=== PATIENT | male | born 1950 | race Caucasian/White ===

== ENCOUNTER → 2017-01-16 | Outpatient (CLI) | payer OTHER ==
[~2017-01-16] MED LIST: ASPI-435 PO; ATOR-24 PO; CHOL100027 PO; CHOL2000 PO; CYAN100020 PO; FURO-85 PO; LPT40 PO; LSN5 PO; LSX20 PO; PRVHFAIN INH; RIVA1TAB4 PO; SACU1TAB PO; SACU1TAB7 PO; SENN-61 PO; SENN8.6C PO; TPRSR50 PO
[2017-01-16 16:58] LABS: BASO % 0.4 %; BASO ABS # 0.03 K/uL (0-0.2); COMPLETE YES; EOS % 4.1 %; HEMATOCRIT 39.9 % (42-52); IG% 0.3 %; LYMPH % 23.4 %; LYMPH ABS # 1.72 K/uL (1.2-3.4); MEAN CELL VOLUME 97.3 fL (80-100); MEAN CORPUSCULAR HGB CONC 32.8 g/dl (32-36); MEAN PLATELET VOLUME 11.6 fL (7.4-10.4); MONO % 11.7 %; NEUT % 60.1 %; PLATELET COUNT 198 K/uL (130-400); WHITE BLOOD COUNT 7.35 K/uL (4.8-10.8)
[2017-01-16 17:03] LABS: URINE APPEARANCE CLEAR (CLEAR); URINE BILIRUBIN NEG (NEG); URINE COLOR YELLOW; URINE NITRITE NEG (NEG); URINE SPECIFIC GRAVITY 1.015 (1.000-1.030); UROBILINOGEN NEG (NEG)
[2017-01-16 17:05] LABS: MANUAL MICROSCOPIC REQUIRED? NO; REVIEW REQ? NO
[2017-01-16 17:09] LABS: ALT/SGPT 37 U/L (12-78); AST/SGOT 23 U/L (15-37); BLOOD UREA NITROGEN 26 mg/dl (7-18); BUN/CREATININE RATIO 17.4 (10-20); CALCIUM 9.1 mg/dl (8.5-10.1); CARBON DIOXIDE 28 mmol/L (21-32); CHLORIDE 106 mmol/L (98-107); GLUCOSE 83 mg/dl (70-99); POTASSIUM 5.1 mmol/L (3.5-5.1); SODIUM 140 mmol/L (136-145)
[2017-01-16 17:20] LABS: ALB/GLOB RATIO 0.9 (0.9-2); ALKALINE PHOSPHATASE 104 U/L (45-117); PHOSPHORUS 3.8 mg/dl (2.5-4.9)
[2017-01-16 17:26] LABS: URINE TOTAL PROTEIN < 5.0 mg/dl (0-11.9)
== END | disposition home or self-care (01) ==
LOC: C.LABBC 12:39
PROVIDERS: ATTEND Family Medicine
DX: N18.3 Chronic kidney disease, stage 3 (moderate) (principal); I42.0 Dilated cardiomyopathy; D64.9 Anemia, unspecified

== ENCOUNTER → 2017-01-18 | Outpatient (CLI) | payer OTHER ==
[2017-01-18 15:42] LABS: FERRITIN 531.8 ng/ml (8.0-388.0)
[2017-01-20 15:04] LABS: ALBUMIN 4.1 G/DL (3.8-4.8); GAMMA GLOBULIN 1.4 G/DL (0.8-1.7); TOTAL PROTEIN 7.3 G/DL (6.2-8.3)
[2017-01-23 07:45] LABS: CREATININE UR 99 MG/DL (20-370)
--- NOTE | 2017-01-25 09:56 | CODING QUERY MEDICAL NECESSITY ---
SUPPORTING DIAGNOSIS NEEDED A supporting diagnosis is required for the test/procedure performed on this patient in order for us to be reimbursed by the patient's insurance. Please provide a supporting diagnosis for the following test/procedure listed below next to the test name along with your signature. *If there is no additional diagnosis for this patient that would support the following test/procedure please document that below next to the test/procedure. Test(s)/Procedure(s) that require a supporting diagnosis: DOS 01/18 * Vitamin B12 DIAGNOSIS: Provider Signature: Date: Thank you Med[facility] Information Management Once completed, please kindly fax back to [phone] For questions please call [phone]
== END | disposition home or self-care (01) ==
LOC: C.LABBC 09:38
PROVIDERS: ATTEND Family Medicine
DX: N18.3 Chronic kidney disease, stage 3 (moderate) (principal); R31.29 Other microscopic hematuria; Z11.59 Encounter for screening for other viral diseases; D64.9 Anemia, unspecified

== ENCOUNTER → 2017-02-06 | Outpatient (CLI) | payer OTHER ==
--- NOTE | 2017-02-06 09:40 | DIAGNOSTIC IMAGING REPORT ---
CT OF THE CHEST WITHOUT IV CONTRAST CLINICAL HISTORY: Left lower lobe pulmonary nodule. COMPARISON STUDY: Chest CT October 11, 2016 and chest radiograph November 09, 2016. CT DOSE: 493.65 mGy.cm TECHNIQUE: Axial images of the chest were obtained without IV contrast. Images were reviewed in the axial, sagittal, and coronal planes. IV contrast was not administered for this examination. FINDINGS: A prominent right paratracheal lymph node is at the upper limits of normal for size, measuring 1 cm in short axis diameter. This is similar to prior exam. There are calcified right hilar lymph nodes. There is a dual lead left subclavian pacemaker. The heart is moderately enlarged. There is no pericardial effusion. Central airways are patent. The left lower lobe subpleural opacity shown exam of October 11, 2016 has nearly completely resolved. No new nodules are identified. Subpleural reticulation and groundglass opacity with mild bronchiectasis, greater within the right lung, is noted. This is consistent with interstitial lung disease. Asymmetric right lower lung opacity favors asymmetric interstitial lung disease. There is no consolidation to suggest pneumonia. The central airways are patent. There is no pneumothorax or pleural effusion. A cyst within the upper pole the right kidney is incidentally noted. IMPRESSION: 1. Near complete resolution of the left lower lobe subpleural nodular density since exam October 11, 2016 suggestive of a resolving infarct. 2. No significant change in asymmetric right lung groundglass opacity which favors asymmetric interstitial lung disease. 3. No suspicious pulmonary nodules. Electronically signed by: Ramiro Ponce M.D. 02/06/2017 9:38 AM Dictated Date/Time: 02/06/2017 9:28 AM
== END | disposition home or self-care (01) ==
LOC: C.CTS 09:00
PROVIDERS: ATTEND Surgery
DX: R91.1 Solitary pulmonary nodule (principal)

== ENCOUNTER → 2017-03-13 | Outpatient (CLI) | payer OTHER ==
[2017-03-13 10:43] LABS: BASO % 0.4 %; BASO ABS # 0.03 K/uL (0-0.2); COMPLETE YES; EOS % 3.9 %; HEMATOCRIT 42.9 % (42-52); IG% 0.1 %; LYMPH % 21.3 %; LYMPH ABS # 1.59 K/uL (1.2-3.4); MEAN CELL VOLUME 98.4 fL (80-100); MEAN CORPUSCULAR HEMOGLOBIN 31.4 pg (25-34); MEAN CORPUSCULAR HGB CONC 31.9 g/dl (32-36); MEAN PLATELET VOLUME 11.3 fL (7.4-10.4); MONO % 6.6 %; NEUT % 67.7 %; PLATELET COUNT 232 K/uL (130-400); RED BLOOD COUNT 4.36 M/uL (4.7-6.1); WHITE BLOOD COUNT 7.48 K/uL (4.8-10.8)
[2017-03-13 10:59] LABS: ALT/SGPT 26 U/L (12-78); AST/SGOT 15 U/L (15-37); BLOOD UREA NITROGEN 26 mg/dl (7-18); BUN/CREATININE RATIO 17.1 (10-20); CALCIUM 8.9 mg/dl (8.5-10.1); CARBON DIOXIDE 29 mmol/L (21-32); CHLORIDE 108 mmol/L (98-107); CHOLESTEROL 136 mg/dl (0-200); GLUCOSE 98 mg/dl (70-99); POTASSIUM 5.1 mmol/L (3.5-5.1); SODIUM 142 mmol/L (136-145)
[2017-03-13 11:02] LABS: ALKALINE PHOSPHATASE 94 U/L (45-117); CHOLESTEROL/HDL RATIO 2.4; HDL CHOLESTEROL 56 mg/dl; LDL CHOLESTEROL CALCULATED 57 mg/dl; TRIGLYCERIDES 115 mg/dl (0-150); VERY LOW DENSITY LIPOPROT CALC 23 mg/dl
== END | disposition home or self-care (01) ==
LOC: C.LABBC 08:43
PROVIDERS: ATTEND Physician Assistant Medical
DX: E78.5 Hyperlipidemia, unspecified (principal); D64.9 Anemia, unspecified

== ENCOUNTER → 2017-03-23 | Day surgery (SDC) | payer OTHER ==
[~2017-03-23] VITALS: Ht 185.4 cm; Wt 100.0 kg
[~2017-03-23] MED LIST changes: +ATROPINE SULFATE 0.1 MG/ML 5ML SYR IV PRN; +EpHEDrine SULFATE INJ 50 MG/ML AMP IV PRN
[2017-03-23 06:57] VITALS: BP 111/78; PULSE 78; TEMP 36.4; O2SAT 99; Ht 185.4 cm; Wt 100.0 kg
[2017-03-23 07:35] VITALS: BP 110/76; PULSE 74; O2SAT 100
[2017-03-23 07:40] VITALS: BP 97/68; PULSE 71; O2SAT 100
[2017-03-23 07:45] VITALS: BP 98/64; PULSE 87; O2SAT 100
--- NOTE | 2017-03-23 07:50 | History & Physical Bridge Note ---
H&P Re-Evaluation Bridge Note: I have examined the patient, reviewed the History & Physical and in the interval since the performance of the History & Physical I have noted the following changes of clinical significance: No changes noted
--- NOTE | 2017-03-23 07:54 | [facility] Post Operative Brief Note ---
Immediate Operative Summary Operative Date March 23, 2017. Pre-Operative Diagnosis Paroxysmal atrial Fibrillation Post-Operative Diagnosis PAF s/p Successful external DCCV Procedure(s) Performed External Direct current cardioversion Surgeon Dr. Dash Trejo Waste Elimination Surgeon(s) Parag Estimated Blood Loss none Findings AF Specimens none Complication(s) None Disposition labor conciliator holding
--- NOTE | 2017-03-23 07:59 | Anesthesiology Progress Note ---
Anesthesia Post Op Note Date & Time March 23, 2017 at 07:59 Vital Signs Pain Intensity: 0 Vital Signs Past 12 Hours Date Time Temp Pulse Resp B/P Pulse Ox O2 Delivery O2 Flow Rate FiO2 03/23/17 07:46 36.4 78 16 97/73 100 Nasal Cannula 2 03/23/17 07:45 87 16 98/64 100 Nasal Cannula 2 03/23/17 07:40 71 22 97/68 100 Nasal Cannula 6 03/23/17 07:35 74 16 110/76 100 Nasal Cannula 6 03/23/17 06:57 36.4 78 16 111/78 99 Room Air Notes Mental Status: alert / awake / arousable, participated in evaluation Pt Amnestic to Procedure: Yes Nausea / Vomiting: adequately controlled Pain: adequately controlled Airway Patency, RR, SpO2: stable & adequate BP & HR: stable & adequate Hydration State: stable & adequate Anesthetic Complications: no major complications apparent
--- NOTE | 2017-03-23 07:59 | Discharge Instructions ---
Discharge Instructions Procedure Procedure Date: March 23, 2017. Reason for Visit: Atrial Fibrillation Dr Trejo To Do. Discharge Discharge Date: March 23, 2017. Discharge Diagnosis: Atrial fibrillation s/p external direct current cardioversion. Last Recorded Wt (Kilograms): 100 Anesthesia Post Anesthesia Instructions: If you have had General Anesthesia or IV Sedation: * Do not drive today. * Resume driving when surgeon permits. * Do not make important decisions or sign legal documents today. * Call surgeon for: 1. Temperature elevations greater than 101 degrees F. 2. Uncontrollable pain. 3. Excessive bleeding. 4. Persistent nausea and vomiting. 5. Medication intolerance (nausea, vomiting or rash). * For nausea and vomiting use only clear liquids such as: tea, soda, bouillon until nausea subsides, then gradually increase diet as tolerated. * If you have any concerns or questions, call your surgeon's office. If physician is unavailable and it is an emergency, call 911 or go to the nearest emergency room. Instructions Activity Recommendations: limitations as noted below Return to School/Work: with the following limitations Recommended Home Diet: resume previous diet Allergies: Coded Allergies: Diphtheria Toxoid (Verified Allergy, Severe, CONVULSIONS, 11/08/16) Tetanus Toxoid (Verified Allergy, Severe, CONVULSIONS, 11/08/16) Pt states this was the old Tetanus with horse serum. Is able to take a new tetanus inj Provider Instructions ACTIVITY RECOMMENDATIONS: Resume activities as tolerated with no limitations unless specified. _x_ No lifting over _10_ pounds for 24 hours. _x_ Do not engage in vigorous exercise, sexual activity, or sports for 24 hours. _x_ Do not drive or operate any motorized equipment for 24 hours. _x_ You may return to work/school tomorrow. Follow Up Follow-up with: Dr. Trejo and Dr. Bedoya [facility] Recommendations: Call your doctor if: * Temperature above 101 degrees * Pain not relieved by pain medicine ordered * There is increased drainage or redness from any incision * You have any unanswered questions or concerns. Your Doctors Instructions noted above were prepared by provider Ja Trejo. Patient Signature Section: Patient Instructions Signature Page Mauro Jaquez Patient (or Guardian) Signature/Date: I have read and understand the instructions given to me by my caregivers. Caregiver/RN/Doctor Signature/Date: The above-named patient and/or guardian has received patient instructions on this date. + Original Patient Signature Page (only) stays with chart. Please make copy for patient.
[2017-03-23 08:35] VITALS: BP 108/75; PULSE 87; O2SAT 98
--- NOTE | 2017-03-23 08:43 | CARDIOVERSION ---
DATE OF OPERATION: 03/23/2017 CARDIOVERSION REPORT DATE OF PROCEDURE: 03/23/2017. INDICATIONS: Paroxysmal atrial fibrillation. PROCEDURE: External direct current cardioversion. PROCEDURAL SUMMARY: The patient was brought to the cardiac catheterization lab in a fasting state. Defibrillator pads were placed in an anterior and posterior position. Atrial fibrillation confirmed by ICD interrogation and telemetry monitoring. Moderate sedation provided by the anesthesia service. The patient received propofol. Please see their note for details. When adequate sedation was achieved the defibrillator was synched to the QRS complex. The defibrillator was then charged to 200 joules. A single 200 joule biphasic shock was delivered. The patient was successfully converted from atrial fibrillation to normal sinus rhythm. ICD interrogation demonstrated normal function post cardioversion. CONCLUSION: Successful external direct current cardioversion from atrial fibrillation to normal sinus rhythm at 200 joules. No complications. No medication changes. I attest to the content of the Intraoperative Record and any orders documented therein. Any exceptio ns are noted below.
== END | disposition home or self-care (01) ==
LOC: C.CATH 06:01
PROVIDERS: ATTEND Internal Medicine Cardiovascular Disease
DX: I48.0 Paroxysmal atrial fibrillation (principal); I50.22 Chronic systolic (congestive) heart failure; I47.2 Ventricular tachycardia; I49.3 Ventricular premature depolarization; Z95.810 Presence of automatic (implantable) cardiac defibrillator; I26.99 Other pulmonary embolism without acute cor pulmonale; N18.3 Chronic kidney disease, stage 3 (moderate); I25.10 Atherosclerotic heart disease of native coronary artery without angina pectoris; Z87.891 Personal history of nicotine dependence; Z82.49 Family history of ischemic heart disease and other diseases of the circulatory system; Z79.82 Long term (current) use of aspirin; Z86.718 Personal history of other venous thrombosis and embolism; Z79.01 Long term (current) use of anticoagulants; Z90.89 Acquired absence of other organs; Z98.41 Cataract extraction status, right eye; Z98.42 Cataract extraction status, left eye; J44.9 Chronic obstructive pulmonary disease, unspecified; E78.5 Hyperlipidemia, unspecified; M19.90 Unspecified osteoarthritis, unspecified site; I10 Essential (primary) hypertension

== ENCOUNTER → 2017-11-30 | Outpatient (CLI) | payer OTHER ==
[~2017-11-30] MED LIST changes: -ATROPINE SULFATE 0.1 MG/ML 5ML SYR IV PRN; -CHOL100027 PO; -EpHEDrine SULFATE INJ 50 MG/ML AMP IV PRN; -LPT40 PO; -LSX20 PO; -PRVHFAIN INH; -SACU1TAB PO; -SENN-61 PO
[2017-11-30 11:26] LABS: ALBUMIN 3.8 gm/dl (3.4-5.0); ALT/SGPT 24 U/L (12-78); BLOOD UREA NITROGEN 23 mg/dl (7-18); CARBON DIOXIDE 28 mmol/L (21-32); CHOLESTEROL 134 mg/dl (0-200); CREATININE 1.39 mg/dl (0.60-1.40); GLUCOSE 103 mg/dl (70-99); POTASSIUM 4.5 mmol/L (3.5-5.1); SODIUM 139 mmol/L (136-145)
[2017-11-30 11:30] LABS: ALKALINE PHOSPHATASE 82 U/L (45-117); AST/SGOT 17 U/L (15-37); LDL CHOLESTEROL CALCULATED 68 mg/dl; TOTAL PROTEIN 7.9 gm/dl (6.4-8.2)
== END | disposition home or self-care (01) ==
LOC: C.LABBC 08:32
PROVIDERS: ATTEND Physician Assistant Medical
DX: Z00.00 Encounter for general adult medical examination without abnormal findings (principal); E78.5 Hyperlipidemia, unspecified; N18.3 Chronic kidney disease, stage 3 (moderate); I42.8 Other cardiomyopathies

== ENCOUNTER 2018-01-09 12:01 | Emergency (ER) | payer OTHER ==
[~2018-01-09] VITALS: Ht 185.4 cm; Wt 103.1 kg
[2018-01-09 12:08] VITALS: TEMP 36.7; Ht 185.4 cm; Wt 103.1 kg
--- NOTE | 2018-01-09 12:35 | EMERGENCY ROOM VISIT NOTE ---
History Report prepared by Aline: Eva Garcia Under the Supervision of: Dr. Papa Bradshaw D.O. First contact with patient: 12:28 Chief Complaint: LEG PAIN,LEG INJURY Stated Complaint: POSSIBLE BLOOD CLOT IN LEFT LEG,SWELLING History of Present Illness The patient is a 67 year old male who presents to the Emergency Room with complaints of persistent left leg swelling for three days. He notified his winder fixer, who recommended he come to the ED for evaluation. He denies any chest pain or shortness of breath. He has a history of blood clots in August 2016. He denies any groin pain. He is currently taking Xarelto. He does not remember injuring the leg. He thought he may have pulled a muscle. He has an implanted defibrillator. He does not want any medication for pain. Source of History: patient Onset: three days Position: leg (left) Quality: other (swelling) Timing: other (persistent) Associated Symptoms: No chest pain, No SOB Note: He denies any groin pain. Review of Systems See HPI for pertinent positives & negatives. A total of 10 systems reviewed and were otherwise negative. Past Medical & Surgical Medical Problems: (1) NICM (nonischemic cardiomyopathy) (2) Pneumonia (3) Pulmonary embolism (4) Pulmonary nodule (5) SOB (shortness of breath) Surgical Problems: (1) S/P appendectomy (2) S/P tonsillectomy Family History Diabetes mellitus FH: cancer FH: heart disease Gallbladder disease Hypertension Kidney stones Social History Smoking Status: Former Smoker Drug Use: none Marital Status: Housing Status: lives with family Occupation Status: employed Current/Historical Medications Scheduled Aspirin (Aspirin 81), 81 MG PO DAILY Atorvastatin (Lipitor), 1 TAB PO DAILY Cholecalciferol (Vitamin D3), 1 CAP PO DAILY Cyanocobalamin (Vitamin B12), 1 TAB PO DAILY Furosemide (Lasix), 1 TAB PO DAILY Metoprolol Succinate (Metoprolol Succinate ER), 50 MG PO QAM Rivaroxaban (Xarelto), 20 MG PO DAILY Sacubitril-Valsartan (Entresto 49-51 mg), 1 TAB PO BID Sennosides (Senna), 1 TAB PO DAILY Spironolactone (Aldactone), 12.5 MG PO DAILY Allergies Coded Allergies: Diphtheria Toxoid (Verified Allergy, Severe, CONVULSIONS, 3/13/18) Tetanus Toxoid (Verified Allergy, Severe, CONVULSIONS, 01/09/18) Pt states this was the old Tetanus with horse serum. Is able to take a new tetanus inj Physical Exam Vital Signs Date Time Temp Pulse Resp B/P (MAP) Pulse Ox O2 Delivery O2 Flow Rate FiO2 01/09/18 15:41 68 16 114/80 96 01/09/18 14:52 61 16 109/78 98 Room Air 01/09/18 13:04 67 16 98/64 96 Room Air 01/09/18 12:08 36.7 84 20 133/81 95 Room Air Physical Exam GENERAL: Patient is awake, alert, and in no acute distress. Patient is resting comfortably and showing no signs of anxiety EYES: The conjunctivae are clear. The pupils are round and reactive. EARS, NOSE, MOUTH AND THROAT: The nose is without any evidence of any deformity. Mucous membranes are moist tongue is midline NECK: The neck is nontender and supple. RESPIRATORY: Normal respiratory effort is noted there is no evidence of wheezing rhonchi or rales CARDIOVASCULAR: Regular rate and rhythm noted there no murmurs rubs or gallops normal S1 normal S2 GASTROINTESTINAL: The abdomen is soft. Bowel sounds are present in all quadrants. Abdomen is nontender MUSCULOSKELETAL/EXTREMITIES: There is no evidence of gross deformity full range of motion is noted in the hips and shoulders SKIN: Pedal edema bilaterally, left greater than right. Calf tenderness noted in LLE. Age and determinant ecchymosis noted on left thigh. Pulses were symmetric. NEUROLOGIC: Patient is awake alert and oriented x3. Medical Decision & Procedures ER Provider Diagnostic Interpretation: Radiology results as stated below per my review and radiologist interpretation: L VENOUS DOPP LOWER EXT UNILAT CLINICAL HISTORY: swelling pain. Edema. TECHNIQUE: Venous Doppler COMPARISON STUDY: 09/11/2016 FINDINGS: Normal study IMPRESSION: Normal study The above report was generated using voice recognition software. It may contain grammatical, syntax or spelling errors. Electronically signed by: Ashok Bashir M.D. 01/09/2018 2:48 PM Dictated Date/Time: 01/09/2018 2:47 PM Laboratory Results 01/09/18 12:40 Red Blood Count 4.08, Mean Corpuscular Volume 95.6, Mean Corpuscular Hemoglobin 31.1, Mean Corpuscular Hemoglobin Concent 32.6, Mean Platelet Volume 10.9, Neutrophils (%) (Auto) 68.0, Lymphocytes (%) (Auto) 19.5, Monocytes (%) (Auto) 7.8, Eosinophils (%) (Auto) 4.4, Basophils (%) (Auto) 0.3, Neutrophils # (Auto) 3.98, Lymphocytes # (Auto) 1.14, Monocytes # (Auto) 0.46, Eosinophils # (Auto) 0.26, Basophils # (Auto) 0.02 01/09/18 12:40 Test 01/09/18 12:40 White Blood Count 5.86 K/uL (4.8-10.8) Red Blood Count 4.08 M/uL (4.7-6.1) Hemoglobin 12.7 g/dL (14.0-18.0) Hematocrit 39.0 % (42-52) Mean Corpuscular Volume 95.6 fL (80-100) Mean Corpuscular Hemoglobin 31.1 pg (25-34) Mean Corpuscular Hemoglobin Concent 32.6 g/dl (32-36) Platelet Count 221 K/uL (130-400) Mean Platelet Volume 10.9 fL (7.4-10.4) Neutrophils (%) (Auto) 68.0 % Lymphocytes (%) (Auto) 19.5 % Monocytes (%) (Auto) 7.8 % Eosinophils (%) (Auto) 4.4 % Basophils (%) (Auto) 0.3 % Neutrophils # (Auto) 3.98 K/uL (1.4-6.5) Lymphocytes # (Auto) 1.14 K/uL (1.2-3.4) Monocytes # (Auto) 0.46 K/uL (0.11-0.59) Eosinophils # (Auto) 0.26 K/uL (0-0.5) Basophils # (Auto) 0.02 K/uL (0-0.2) RDW Standard Deviation 47.6 fL (36.4-46.3) RDW Coefficient of Variation 13.7 % (11.5-14.5) Immature Granulocyte % (Auto) 0.0 % Immature Granulocyte # (Auto) 0.00 K/uL (0.00-0.02) Prothrombin Time 11.4 SECONDS (9.0-12.0) Prothromb Time International Ratio 1.1 (0.9-1.1) Activated Partial Thromboplast Time 29.6 SECONDS (21.0-31.0) Partial Thromboplastin Ratio 1.1 Anion Gap 6.0 mmol/L (3-11) Est Creatinine Clear Calc Drug Dose 62.8 ml/min Estimated GFR () 59.0 Estimated GFR (Non- 50.9 BUN/Creatinine Ratio 15.2 (10-20) Calcium Level 9.2 mg/dl (8.5-10.1) Total Bilirubin 0.6 mg/dl (0.2-1) Direct Bilirubin 0.1 mg/dl (0-0.2) Aspartate Amino Transf (AST/SGOT) 16 U/L (15-37) Alanine Aminotransferase (ALT/SGPT) 26 U/L (12-78) Alkaline Phosphatase 102 U/L (45-117) Total Protein 8.2 gm/dl (6.4-8.2) Albumin 3.9 gm/dl (3.4-5.0) Laboratory results per my review. ED Course 1230: The patient was evaluated in room B11B. A complete history and physical examination were performed. 1527: I reassessed the patient at this time. He is feeling better and resting comfortably. I discussed the results and treatment plan with the patient. I answered all pertaining questions that he had. He expressed understanding and verbalized agreement. The patient will be discharged home. Medical Decision Prior records reviewed and summarized above. Triage Nursing notes reviewed. The patient's history was concerning for swelling and pain in the leg. Differential diagnosis: Etiologies such as DVT, musculoskeletal, infection, joint effusion, trauma, lymphedema, idiopathic, CHF, as well as others were entertained.. The patient is a 67-year-old male who presented to the emergency department at the request of his primary care physician for left leg swelling and possible DVT. The patient has a history of DVT. He is currently on anticoagulation. On exam he had a hematoma on his inner left thigh. This was age-indeterminate. I discussed patient's laboratory and radiographic studies with him. He was encouraged to follow-up with his family doctor and have a repeat ultrasound in 1 week if symptoms do not improve. He was also encouraged to continue all medications as prescribed. Medication Reconcilliation Current Medication List: was personally reviewed by me Blood Pressure Screening Patient's blood pressure: Elevated blood pressure Blood pressure disposition: Elevated BP felt to be situational Impression Primary Impression: Edema of left lower extremity Additional Impression: Hematoma of left thigh Scribe Attestation The scribe's documentation has been prepared under my direction and personally reviewed by me in its entirety. I confirm that the note above accurately reflects all work, treatment, procedures, and medical decision making performed by me. Departure Information Dispostion Home / Self-Care Referrals Kinga Diaz M.D. (PCP) Forms HOME CARE DOCUMENTATION FORM, IMPORTANT VISIT INFORMATION Patient Instructions ED Leg Swelling Unilateral, My [facility] Additional Instructions Call your family doctor to schedule a follow-up appointment. Continue all medications as prescribed. Problem Qualifiers Additional Impression: Hematoma of left thigh Encounter type: initial encounter Qualified Codes: S70.12XA - Contusion of left thigh, initial encounter
[2018-01-09 12:51] LABS: BASO % 0.3 %; BASO ABS # 0.02 K/uL (0-0.2); EOS % 4.4 %; EOS ABS # 0.26 K/uL (0-0.5); HEMOGLOBIN 12.7 g/dL (14.0-18.0); LYMPH % 19.5 %; LYMPH ABS # 1.14 K/uL (1.2-3.4); MEAN CELL VOLUME 95.6 fL (80-100); MEAN CORPUSCULAR HEMOGLOBIN 31.1 pg (25-34); MEAN CORPUSCULAR HGB CONC 32.6 g/dl (32-36); MEAN PLATELET VOLUME 10.9 fL (7.4-10.4); MONO % 7.8 %; MONO ABS # 0.46 K/uL (0.11-0.59); NEUT ABS # 3.98 K/uL (1.4-6.5); PLATELET COUNT 221 K/uL (130-400); RED CELL DISTRIBUTION WIDTH CV 13.7 % (11.5-14.5); RED CELL DISTRIBUTION WIDTH SD 47.6 fL (36.4-46.3); WHITE BLOOD COUNT 5.86 K/uL (4.8-10.8)
[2018-01-09] MEDS ORDERED: SPIR25TA PO (12:57)
[2018-01-09 12:59] LABS: INR 1.1 (0.9-1.1); PTT PATIENT 29.6 SECONDS (21.0-31.0)
[2018-01-09 13:10] LABS: ALBUMIN 3.9 gm/dl (3.4-5.0); CALCIUM 9.2 mg/dl (8.5-10.1); CREATININE 1.4 mg/dl (0.60-1.40); POTASSIUM 4.5 mmol/L (3.5-5.1)
[2018-01-09 13:12] LABS: TOTAL PROTEIN 8.2 gm/dl (6.4-8.2)
--- NOTE | 2018-01-09 14:49 | DIAGNOSTIC IMAGING REPORT ---
L VENOUS DOPP LOWER EXT UNILAT CLINICAL HISTORY: swelling pain. Edema. TECHNIQUE: Venous Doppler COMPARISON STUDY: 09/11/2016 FINDINGS: Normal study IMPRESSION: Normal study The above report was generated using voice recognition software. It may contain grammatical, syntax or spelling errors. Electronically signed by: Ashok Bashir M.D. 01/09/2018 2:48 PM Dictated Date/Time: 01/09/2018 2:47 PM
[2018-01-09 15:41] VITALS: BP 114/80; PULSE 68; O2SAT 96
== END 2018-01-09 15:42 | disposition home or self-care (01) ==
LOC: C.EDB 12:03
DX: M79.89 Other specified soft tissue disorders (principal); S70.12XA Contusion of left thigh, initial encounter; X58.XXXA Exposure to other specified factors, initial encounter; Z86.711 Personal history of pulmonary embolism; Z86.718 Personal history of other venous thrombosis and embolism; Z95.810 Presence of automatic (implantable) cardiac defibrillator; Z87.01 Personal history of pneumonia (recurrent); I42.9 Cardiomyopathy, unspecified; Z83.3 Family history of diabetes mellitus; Z80.9 Family history of malignant neoplasm, unspecified; Z83.79 Family history of other diseases of the digestive system; Z82.49 Family history of ischemic heart disease and other diseases of the circulatory system; Z84.1 Family history of disorders of kidney and ureter; Z87.891 Personal history of nicotine dependence; Z79.82 Long term (current) use of aspirin; Z79.01 Long term (current) use of anticoagulants; Z79.899 Other long term (current) drug therapy; Z88.7 Allergy status to serum and vaccine

== ENCOUNTER 2018-01-20 08:30 | Emergency (ER) | payer OTHER ==
[~2018-01-20] VITALS: Ht 185.4 cm; Wt 100.0 kg
[~2018-01-20 08:30] MED LIST changes: -LSN5 PO; +SPIR25TA PO
[2018-01-20 08:36] VITALS: TEMP 36.5; Ht 185.4 cm; Wt 100.0 kg
[2018-01-20] MEDS ORDERED: SODIUM CHLORIDE 0.9% 1000ML 1,000 ML IV STA (08:52)
[2018-01-20] MEDS ORDERED: MoRPHine SULFATE 4 MG/ML 1 ML CARP\\VIAL IV STA (09:00)
[2018-01-20] MEDS ORDERED: OPTIRAY 320 IV PRN (09:00)
[2018-01-20 09:19] LABS: BASO % 0.4 %; BASO ABS # 0.03 K/uL (0-0.2); EOS % 2.1 %; EOS ABS # 0.17 K/uL (0-0.5); HEMATOCRIT 33.3 % (42-52); HEMOGLOBIN 11.1 g/dL (14.0-18.0); IG# 0.01 K/uL (0.00-0.02); LYMPH % 11.8 %; LYMPH ABS # 0.96 K/uL (1.2-3.4); MEAN CORPUSCULAR HGB CONC 33.3 g/dl (32-36); MEAN PLATELET VOLUME 11.1 fL (7.4-10.4); MONO % 10.2 %; MONO ABS # 0.83 K/uL (0.11-0.59); NEUT % 75.4 %; NEUT ABS # 6.15 K/uL (1.4-6.5); PLATELET COUNT 224 K/uL (130-400); RED CELL DISTRIBUTION WIDTH CV 13.8 % (11.5-14.5); RED CELL DISTRIBUTION WIDTH SD 48.5 fL (36.4-46.3); WHITE BLOOD COUNT 8.15 K/uL (4.8-10.8)
[2018-01-20 09:29] LABS: CALCIUM 9.3 mg/dl (8.5-10.1); CREATININE 1.42 mg/dl (0.60-1.40); POTASSIUM 4.5 mmol/L (3.5-5.1)
[2018-01-20 09:34] LABS: CKMB 0.6 ng/ml (0.5-3.6)
[2018-01-20] MEDS ORDERED: LPT40 PO (09:39)
[2018-01-20] MEDS ORDERED: RIVA1TAB4 PO (09:39)
--- NOTE | 2018-01-20 10:21 | DIAGNOSTIC IMAGING REPORT ---
L LOWER EXTREMITY WITH CLINICAL HISTORY: edema pain TECHNIQUE: Transaxial acquisition with multi axial reformatted images. COMPARISON STUDY: None FINDINGS: Findings of generalized soft tissue and to a lesser extent muscular edema throughout the lower leg. This extends to the knee to ankle. There is a long intramuscular hematoma extending from the level of the knee to the mid calf. This has a maximum linear dimension of 23 cm. Maximum transaxial dimension is approximate 4 x 5 cm. There is moderate degree of surrounding edematous change. There are no air pockets. Osseous structures show no acute bony abnormality. IMPRESSION: 1. Generalized soft tissue and muscular edematous change throughout the lower leg. 2. Intramuscular hematoma extending from the popliteal fossa region through the mid calf measuring 23 x 4 x 5 cm. 3. No acute bony abnormality. The above report was generated using voice recognition software. It may contain grammatical, syntax or spelling errors. Electronically signed by: Ashok Bashir M.D. 01/20/2018 10:20 AM Dictated Date/Time: 01/20/2018 10:14 AM
--- NOTE | 2018-01-20 11:13 | EMERGENCY ROOM VISIT NOTE ---
History Report prepared by Aline: Errol Milner Under the Supervision of: Dr. Raymond Denton D.O. First contact with patient: 08:45 Chief Complaint: SWELLING TO EXTREMITY Stated Complaint: SWELLING IN LEFT LEG/PAIN History of Present Illness The patient is a 67 year old male who presents to the Emergency Room with complaints of worsening left leg swelling and pain that began 2 weeks ago rated as 5/10. He states he has difficultly ambulating and bearing weight on his left leg which is ecchymotic. The patient jumped off from his truck on 12/26/2017 which may have contributed to his current symptoms. 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 His projector operator prescribed him 3 days of decreasing Lasix with minimal improvement. The patient takes Xarelto for his heart failure and previous history of blood clots. The patient was previously seen at the ED for a blood clot and had an ultrasound that was negative. Of note, the patient's left leg almost went gangrenous during the [place]. Source of History: patient Onset: 2 weeks ago Position: leg (left) Symptom Intensity: pain rated as 5/10 Quality: other (swelling) Timing: worsening Modifying Factors (Worsening): other (ambulating and bearing weight) Modifying Factors (Relieving): other (minimal improvement with decreasing Lasix) Note: Patient's left leg is ecchymotic. Review of Systems See HPI for pertinent positives & negatives. A total of 10 systems reviewed and were otherwise negative. Past Medical & Surgical Medical Problems: (1) Heart failure (2) NICM (nonischemic cardiomyopathy) (3) Pneumonia (4) Pulmonary embolism (5) Pulmonary nodule (6) SOB (shortness of breath) Surgical Problems: (1) S/P appendectomy (2) S/P tonsillectomy Family History Diabetes mellitus FH: cancer FH: heart disease Gallbladder disease Hypertension Kidney stones Social History Smoking Status: Former Smoker Drug Use: none Marital Status: Housing Status: lives with family Occupation Status: employed Current/Historical Medications Scheduled Aspirin (Aspirin 81), 81 MG PO DAILY Atorvastatin (Lipitor), 50 MG PO DAILY Cholecalciferol (Vitamin D3), 1 CAP PO DAILY Cyanocobalamin (Vitamin B12), 1 TAB PO DAILY Furosemide (Lasix), 1 TAB PO DAILY Metoprolol Succinate (Metoprolol Succinate ER), 50 MG PO QAM Rivaroxaban (Xarelto), 50 MG PO DAILY Sacubitril-Valsartan (Entresto 49-51 mg), 1 TAB PO BID Sennosides (Senna), 1 TAB PO DAILY Spironolactone (Aldactone), 12.5 MG PO DAILY Allergies Coded Allergies: Diphtheria Toxoid (Verified Allergy, Severe, CONVULSIONS, 01/09/18) Tetanus Toxoid (Verified Allergy, Severe, CONVULSIONS, 01/09/18) Pt states this was the old Tetanus with horse serum. Is able to take a new tetanus inj Physical Exam Vital Signs Date Time Temp Pulse Resp B/P (MAP) Pulse Ox O2 Delivery O2 Flow Rate FiO2 01/20/18 10:13 74 16 119/74 99 Room Air 01/20/18 08:36 36.5 59 20 116/73 99 Room Air Physical Exam CONSTITUTIONAL/VITAL SIGNS: Reviewed / noted above. GENERAL: Non-toxic in appearance. INTEGUMENTARY: Warm, dry, and [place]. HEAD: Normocephalic. EYES: without scleral icterus or trauma. ENT/OROPHARYNX: clear and moist. LYMPHADENOPATHY/NECK: Is supple without lymphadenopathy or meningismus. RESPIRATORY: Lungs clear and equal. CARDIOVASCULAR: Regular rate and rhythm. GI/ABDOMEN: Soft and nontender. No organomegaly or pulsatile mass. No rebound or guarding. Normal bowel sounds. EXTREMITIES: Left lower extremity reveals moderate edema and mild yellowish discoloration. Some ecchymosis in the Achilles region. Warm and well perfused. BACK: No CVA tenderness. NEUROLOGICAL: Intact without focal deficits. PSYCHIATRIC: normal affect. MUSCULOSKELETAL: Normally developed with good muscle tone. Medical Decision & Procedures ER Provider Diagnostic Interpretation: Radiology results as stated below per my review and radiologist interpretation: L LOWER EXTREMITY WITH CLINICAL HISTORY: edema pain TECHNIQUE: Transaxial acquisition with multi axial reformatted images. COMPARISON STUDY: None FINDINGS: Findings of generalized soft tissue and to a lesser extent muscular edema throughout the lower leg. This extends to the knee to ankle. There is a long intramuscular hematoma extending from the level of the knee to the mid calf. This has a maximum linear dimension of 23 cm. Maximum transaxial dimension is approximate 4 x 5 cm. There is moderate degree of surrounding edematous change. There are no air pockets. Osseous structures show no acute bony abnormality. IMPRESSION: 1. Generalized soft tissue and muscular edematous change throughout the lower leg. 2. Intramuscular hematoma extending from the popliteal fossa region through the mid calf measuring 23 x 4 x 5 cm. 3. No acute bony abnormality. The above report was generated using voice recognition software. It may contain grammatical, syntax or spelling errors. Electronically signed by: Ashok Bashir M.D. 01/20/2018 10:20 AM Dictated Date/Time: 01/20/2018 10:14 AM Laboratory Results 01/20/18 09:00 Red Blood Count 3.47, Mean Corpuscular Volume 96.0, Mean Corpuscular Hemoglobin 32.0, Mean Corpuscular Hemoglobin Concent 33.3, Mean Platelet Volume 11.1, Neutrophils (%) (Auto) 75.4, Lymphocytes (%) (Auto) 11.8, Monocytes (%) (Auto) 10.2, Eosinophils (%) (Auto) 2.1, Basophils (%) (Auto) 0.4, Neutrophils # (Auto ) 6.15, Lymphocytes # (Auto) 0.96, Monocytes # (Auto) 0.83, Eosinophils # (Auto ) 0.17, Basophils # (Auto) 0.03 01/20/18 09:00 Test 01/20/18 09:00 White Blood Count 8.15 K/uL (4.8-10.8) Red Blood Count 3.47 M/uL (4.7-6.1) Hemoglobin 11.1 g/dL (14.0-18.0) Hematocrit 33.3 % (42-52) Mean Corpuscular Volume 96.0 fL (80-100) Mean Corpuscular Hemoglobin 32.0 pg (25-34) Mean Corpuscular Hemoglobin Concent 33.3 g/dl (32-36) Platelet Count 224 K/uL (130-400) Mean Platelet Volume 11.1 fL (7.4-10.4) Neutrophils (%) (Auto) 75.4 % Lymphocytes (%) (Auto) 11.8 % Monocytes (%) (Auto) 10.2 % Eosinophils (%) (Auto) 2.1 % Basophils (%) (Auto) 0.4 % Neutrophils # (Auto) 6.15 K/uL (1.4-6.5) Lymphocytes # (Auto) 0.96 K/uL (1.2-3.4) Monocytes # (Auto) 0.83 K/uL (0.11-0.59) Eosinophils # (Auto) 0.17 K/uL (0-0.5) Basophils # (Auto) 0.03 K/uL (0-0.2) RDW Standard Deviation 48.5 fL (36.4-46.3) RDW Coefficient of Variation 13.8 % (11.5-14.5) Immature Granulocyte % (Auto) 0.1 % Immature Granulocyte # (Auto) 0.01 K/uL (0.00-0.02) Anion Gap 6.0 mmol/L (3-11) Est Creatinine Clear Calc Drug Dose 61.1 ml/min Estimated GFR () 58.0 Estimated GFR (Non- 50.0 BUN/Creatinine Ratio 14.9 (10-20) Calcium Level 9.3 mg/dl (8.5-10.1) Magnesium Level 2.4 mg/dl (1.8-2.4) Total Creatine Kinase 93 U/L (39-308) Creatine Kinase MB 0.6 ng/ml (0.5-3.6) Creatine Kinase MB Ratio 0.6 (0-3.0) Laboratory results as stated above per my review. Medications Administered Medications (Trade) Dose Ordered Sig/Sukhjinder Route Start Time Stop Time Status Last Admin Dose Admin Sodium Chloride 1,000 ml @ 200 mls/hr Q5H STAT IV 01/20/18 08:52 01/20/18 13:51 01/20/18 09:20 200 MLS/HR Morphine Sulfate (MoRPHine SULFATE INJ) 4 mg NOW STAT IV 01/20/18 09:00 01/20/18 09:02 DC 01/20/18 09:19 4 MG ED Course 0845: Previous medical records were reviewed. The patient was evaluated in room A3. A complete history and physical examination was performed. 0852: Sodium Chloride 1000 ml @ 200 mls/hr IV. 0900: Morphine Sulfate Inj, 4 mg, IV. 1058: I checked on the patient and he is doing well. He will follow up with Dr. Lamb. 1109: On reevaluation, the patient is doing well. I discussed the results and findings with the patient. He verbalized agreement of the treatment plan. He was discharged home. Medical Decision Differential diagnosis: Etiologies such as DVT, musculoskeletal, infection, joint effusion, trauma, lymphedema, idiopathic, CHF, extremity hematoma as well as others were entertained. This is a 67-year-old male who presents to the ED with a chief complaint of left leg swelling. The patient states that his symptoms started over the past several weeks. He thinks that he may have injured his leg when he jumped off of the back of his pickup truck when he was unloading some items. He was on Xarelto at the time and continues to take Xarelto. He was seen here couple of weeks ago with discomfort in his left calf and did not have a DVT at that time. He continues Xarelto. His symptoms worsened and he presents today for evaluation. The patient's CT scan of his leg reveals an intramuscular hematoma from the popliteal fossa to the mid calf measuring 23 x 4 x 5 cm. The patient also has generalized soft tissue muscular edema on CT as well as exam. He does not appear to have compartment syndrome. His compartments are without tenderness to palpation and he has no discomfort with flexion or extension of his left foot. Pulses are palpable. Patient's blood work was unremarkable. His hemoglobin is 11. The patient was told the results of this test. He was advised to discontinue Xarelto for now. He was placed in a Farhad wrap and will follow up with Dr. Lamb. He will call their office on Monday. Medication Reconcilliation Current Medication List: was personally reviewed by me Blood Pressure Screening Patient's blood pressure: Normal blood pressure Blood pressure disposition: Did not require urgent referral Impression Primary Impression: Hematoma of left lower extremity Scribe Attestation The scribe's documentation has been prepared under my direction and personally reviewed by me in its entirety. I confirm that the note above accurately reflects all work, treatment, procedures, and medical decision making performed by me. Departure Information Dispostion Home / Self-Care Referrals Kinga Diaz M.D. (PCP) Patient Instructions My [facility] Additional Instructions Stop taking Xarelto. Elevate leg when possible. Keep impression dressing in place until follow-up. Follow-up with your doctor for further care and evaluation in 1-2 days. Return to the emergency department for worsening or new symptoms or any concerns. You have been examined and treated today on an emergency basis only. This is not a substitute for, or an effort to provide, complete comprehensive medical care. It is impossible to recognize and treat all injuries or illnesses in a single emergency department visit. It is therefore important that you follow up closely with your doctor. Call as soon as possible for an appointment.
[2018-01-20 11:24] VITALS: BP 105/74; PULSE 69; O2SAT 100
[2018-01-20] MEDS ORDERED: OXYC-57 PO (11:29)
== END 2018-01-20 11:35 | disposition home or self-care (01) ==
LOC: C.EDB 08:33 → C.EDA 11:35
DX: S80.12XA Contusion of left lower leg, initial encounter (principal); X58.XXXA Exposure to other specified factors, initial encounter; G62.9 Polyneuropathy, unspecified; Z79.01 Long term (current) use of anticoagulants; I50.9 Heart failure, unspecified; Z86.718 Personal history of other venous thrombosis and embolism; I42.9 Cardiomyopathy, unspecified; Z87.01 Personal history of pneumonia (recurrent); Z83.3 Family history of diabetes mellitus; Z80.9 Family history of malignant neoplasm, unspecified; Z82.49 Family history of ischemic heart disease and other diseases of the circulatory system; Z84.1 Family history of disorders of kidney and ureter; Z87.891 Personal history of nicotine dependence; Z79.82 Long term (current) use of aspirin; Z79.899 Other long term (current) drug therapy; Z88.7 Allergy status to serum and vaccine

== ENCOUNTER 2018-01-25 10:49 | Observation (INO) | payer OTHER ==
--- NOTE | 2018-01-23 13:24 | History and Physical ---
History & Physical Date & Time of Service: Jan 23, 2018 at 13:08 Chief Complaint: Left Calf Hematoma Primary Care Physician: Dr. Gregory Shaffer History of Present Illness Source: patient Patient is a 67-year-old male who was seen and evaluated by Dr. Lamb yesterday in our outpatient clinic. As evaluated for his left leg. He states that on December 26 he jumped out of the back of his truck, landing more so on the left leg. He did not sustain at that time any type of injury. He noticed on January 09 some bruising and swelling in his calf. Went to the emergency room to make sure that he did not have a blood clot an ultrasound was done which was negative for DVT. He then followed up with his heart doctor and an increasing dose of Lasix to try to get rid of the swelling in his left leg. Then 4 days ago he developed increased swelling and pain causing him significant difficulty with walking. He went again to the emergency room had a CT scan and was diagnosed with a hematoma and discharged home. He is currently on Xarelto and aspirin 81 mg daily. He has no history of bleeding or clotting problems. He was instructed by the emergency room physician to stop his around toe and that was stopped as of January 20, 2018. He does have a history of neuropathy in both legs. He thinks that that may be is a little worse at the time being. His leg pain is consistently a 3/10 at rest and is located in the front and back of the left lower leg. He states that he is currently using a wheelchair to get around with ambulation due to the pain and discomfort in his leg with walking. He also uses a walker at home to assist with ambulation. Prior to this injury and the swelling he did not use any assistive device for ambulation. After discussion with Dr. Lamb, it was offered surgical intervention for evacuation of the hematoma. We also could continue conservative treatment with compression rest ice and elevation. The patient has elected to proceed with evacuation of the left leg hematoma. Surgery was scheduled for January 25, 2018. Past Medical/Surgical History Medical Problems: (1) Congestive heart failure (2) Congestive heart failure (3) Edema of left lower extremity (4) Heart failure (5) Hematoma of left lower extremity (6) Hematoma of left thigh (7) NICM (nonischemic cardiomyopathy) (8) Pneumonia (9) Pulmonary embolism/History of DVTs (10) Pulmonary nodule (11) SOB (shortness of breath) 12. Peripheral neuropathy Surgical Problems: (1) S/P appendectomy (2) S/P tonsillectomy 3. Bilateral carpal tunnel release 4. Left shoulder rotator cuff repair 5. Bilateral cataract surgery 6. Defibrillator placement Family History Diabetes mellitus FH: cancer FH: heart disease Gallbladder disease Hypertension Kidney stones Social History Smoking Status: Former Smoker Alcohol Use: none Drug Use: none Marital Status: Housing status: lives with significant other Occupational Status: employed Immunizations History of Influenza Vaccine: No History of Tetanus Vaccine?: No History of Pneumococcal: No History of Hepatitis B Vaccine: No Allergies Coded Allergies: Diphtheria Toxoid (Verified Allergy, Severe, CONVULSIONS, 01/09/18) Tetanus Toxoid (Verified Allergy, Severe, CONVULSIONS, 01/09/18) Pt states this was the old Tetanus with horse serum. Is able to take a new tetanus inj Home Medications Scheduled Aspirin (Aspirin 81), 81 MG PO DAILY Atorvastatin (Lipitor), 50 MG PO DAILY Cholecalciferol (Vitamin D3), 1 CAP PO DAILY Cyanocobalamin (Vitamin B12), 1 TAB PO DAILY Furosemide (Lasix), 1 TAB PO DAILY Metoprolol Succinate (Metoprolol Succinate ER), 50 MG PO QAM Rivaroxaban (Xarelto), 50 MG PO DAILY Sacubitril-Valsartan (Entresto 49-51 mg), 1 TAB PO BID Sennosides (Senna), 1 TAB PO DAILY Spironolactone (Aldactone), 12.5 MG PO DAILY Scheduled PRN Oxycodone/Acetaminophen 5MG/325MG (Percocet 5MG/325MG), 1 TAB PO Q6H PRN for Pain Review of Systems Constitutional: No fever, No chills, No sweats, No weight loss Eyes: No worsening of vision, No redness ENT: + hearing loss, No sore throat, No tinnitus, No dental problems Respiratory: No cough, No sputum, No wheezing, No shortness of breath, No dyspnea on exertion, No dyspnea at rest Cardiovascular: + edema (Left leg), No chest pain, No orthopnea, No palpitations Abdomen: No pain, No nausea, No vomiting, No diarrhea, No constipation Musculoskeletal: + muscle pain (Left calf), + swelling (Lower extremity), + calf pain (Leg) Genitourinary - Male: No hematuria, No dysuria, No urinary frequency, No urinary urgency, No urinary hesitancy, No urinary retention Neurologic: No memory loss, No numbness/tingling, No balance problems Psychiatric: No depression symptoms, No anxiety Endocrine: No fatigue Hematologic / Lymphatic: No abnormal bleeding/bruising, No clotting problems Integumentary: No rash, No itch Allergic / Immunologic: No frequent infections, No poor healing Physical Exam General Appearance: WD/WN, no apparent distress Head: normocephalic, atraumatic Eyes: normal inspection, PERRL, EOMI, sclerae normal ENT: normal ENT inspection, hearing grossly normal, TMs normal (Right TM normal , left Ear canal impacted with cerumen), pharynx normal Neck: supple, no adenopathy, no carotid bruits, trachea midline Respiratory/Chest: chest non-tender, lungs clear, normal breath sounds, no respiratory distress, no accessory muscle use Cardiovascular: regular rate, rhythm, no edema, no murmur, normal peripheral pulses Abdomen/GI: normal bowel sounds, non tender, soft Extremities/Musculoskelatal: normal capillary refill, normal range of motion, non-tender, pelvis stable, + pertinent finding (Exam of left lower extremity: Left leg is swollen 1-2+ edema, down calf, ankle and into the foot. The foot is nontender. He does have some tenderness around the ankle with palpation.Active flexion and extension of the ankle causes discomfort around the ankle area. He does have some tenderness medial and posterior medial calf. There is fullness, but not tenseness. He has minimal pain with passive movement of the toes and ankle. He has 5 to 5-/5 ankle and toe plantar flexion , dorsiflexion, inversion and eversion. He reports numbness in both of his feet , which is chronic and slightly worse than normal on both sides.Distal pulses are 2+ at dorsalis pedis and posterior tib. The foot is warm with good capillary refill. He is able to independently leg left. Range of motion of his left knee is 0-90. Bony prominences of the leg, ankle and knee are nontender.) Neurologic/Psych: no motor/sensory deficits, alert, normal mood/affect, oriented x 3 Skin: normal color, warm/dry, no rash Diagnostics Laboratory Results CBC, PRP performed at [facility] on January 20, 2018. Diagnostic Radiology Ultrasound left lower extremity negative for DVT January 09, 2018. EKG EKG to be performed on January 23, 2018 Impression Assessment and Plan Assessment: Hematoma, left calf, intramuscular on chronic anticoagulation therapy. Plan: Patient is scheduled for an evacuation of left leg hematoma with Dr. Lamb on January 25, 2018 at the [facility]. Risks and complications of surgery were explained the patient and include but are not limited to infection, pain, bleeding, scarring, nerve and blood vessel damage, wound probes, weakness, stiffness, incomplete relief of symptoms, blood clots, embolisms, heart attack, stroke and . Informed consent was obtained by Dr. Lamb. He will have preadmission testing with an appointment on January 24, 2018 at 8 AM. He will obtain a preoperative EKG at his disability manager's office this afternoon. He did have a CBC, PRP and PT PTT at his last ER visit. He is instructed be nothing by mouth after midnight the night before surgery. He was instructed to take his metoprolol the morning of surgery. He was instructed to continue holding his Xarelto, his last dose was January 20, 2018. Will be admitted after surgery for 23 hour observation. He was instructed on the usage of CHG cloths. All questions were answered today. He will call with any further problems, questions, or concerns. Postoperative pain medication will be provided at the time of discharge. He would like to go home upon discharge. His Xarelto will be resumed after surgery appropriately. We will consult the hospitalist postoperatively as needed for medical management. Resuscitation Status VTE Prophylaxis Will order VTE Prophylaxis: Yes
[2018-01-24 08:44] VITALS: BMI 31.0
--- NOTE | 2018-01-24 09:30 | PAT Medication Instructions ---
Service Date Jan 24, 2018. Current Home Medication List Aspirin (Aspirin 81), 81 MG PO QAM Atorvastatin (Lipitor), 50 MG PO QPM Cholecalciferol (Vitamin D3), 1 CAP PO NOON Cyanocobalamin (Vitamin B12), 1 TAB PO NOON Furosemide (Lasix), 1 TAB PO QAM Metoprolol Succinate (Toprol Xl), 50 MG PO QAM Oxycodone/Acetaminophen 5MG/325MG (Oxycodone/Acetaminophen 5MG/325MG), 1 TABLET PO Q6H Rivaroxaban (Xarelto), 20 MG PO QPM Sacubitril-Valsartan (Entresto 49-51 mg), 1 TAB PO BID Sennosides (Senna), 1 TAB PO PRN Spironolactone (Aldactone), 12.5 MG PO QAM Medication Instructions For Your Scheduled Surgery -Contact your surgeon and technical data analyst for instructions for: Aspirin (Aspirin 81), 81 MG PO QAM -Continue to follow your technical data analyst's and surgeon's instructions for: Rivaroxaban (Xarelto), 20 MG PO QPM - Hold the following medications 24 hours prior to surgery: Sacubitril-Valsartan (Entresto 49-51 mg), 1 TAB PO BID (Do not take tonight or tomorrow morning) - Hold the following medications the morning of surgery: Furosemide (Lasix), 1 TAB PO QAM Sennosides (Senna), 1 TAB PO PRN Spironolactone (Aldactone), 12.5 MG PO QAM - Take the following medications the morning of surgery with a sip of water: Metoprolol Succinate (Toprol Xl), 50 MG PO QAM Oxycodone/Acetaminophen 5MG/325MG (Oxycodone/Acetaminophen 5MG/325MG), 1 TABLET PO Q6H (if needed, can be taken up t four hours before surgery) - Take the following medications as scheduled the night before surgery: Atorvastatin (Lipitor), 50 MG PO QPM Cholecalciferol (Vitamin D3), 1 CAP PO NOON Cyanocobalamin (Vitamin B12), 1 TAB PO NOON Oxycodone/Acetaminophen 5MG/325MG (Oxycodone/Acetaminophen 5MG/325MG), 1 TABLET PO Q6H (if needed) Sennosides (Senna), 1 TAB PO PRN (if needed) If you have any questions please call us at [phone] or [phone] or [phone]
[~2018-01-25] VITALS: Ht 185.4 cm; Wt 100.5 kg
[~2018-01-25 10:49] MED LIST changes: -ATOR-24 PO; +CEFAZOLIN SOD 2000MG/15 ML IV PUSH IV ONE; +FENTANYL CITRATE INJ 50 MCG/1 ML 2 ML VIAL ONE; +LACTATED RINGER'S 1000ML 1,000 ML IV SCH; +LIDOCAINE HCL 2% 2 ML VIAL (20MG/ML) ONE; +LPT40 PO; +METO-452 PO; +MIDAZOLAM HCL 1 MG/ML 2ML VIAL ONE; +OXYC-643 PO; +PROPOFOL IV EMULSION 10 MG/ML 20 ML VIAL IV ONE; -TPRSR50 PO
[2018-01-25] MEDS ORDERED: FENTANYL CITRATE INJ 50 MCG/1 ML 2 ML VIAL IV PRN ×2 (11:15)
[2018-01-25] MEDS ORDERED: EpHEDrine SULFATE INJ 50 MG/ML AMP IV PRN ×2 (11:15)
[2018-01-25] MEDS ORDERED: HYDROmorphone INJ 1 MG/ML SYR IV PRN (11:15)
[2018-01-25] MEDS ORDERED: ONDANSETRON INJ 2 MG/ML 2 ML VIAL IV PRN ×3 (11:15→15:30)
[2018-01-25] MEDS ORDERED: MEPERIDINE HCL 25 MG/ML CARP IV PRN ×2 (11:15)
[2018-01-25] MEDS ORDERED: HYDROmorphone INJ 2 MG/ML SYR/VIAL IV PRN (11:15)
[2018-01-25] MEDS ORDERED: LABETALOL HCL IV 5 MG/ML 20ML IV PRN ×2 (11:15)
[2018-01-25] MEDS ORDERED: ATROPINE SULFATE 0.1 MG/ML 5ML SYR IV PRN ×2 (11:15)
[2018-01-25 11:58] VITALS: BP 114/74; PULSE 78; TEMP 36.4; O2SAT 100; Ht 185.4 cm; Wt 100.5 kg
[2018-01-25] MEDS ORDERED: CEFAZOLIN SOD 2000MG/15 ML IV PUSH IV ONE (12:18)
[2018-01-25] MEDS ORDERED: BACITRACIN 50000 UNIT VIAL ONE (13:52)
[2018-01-25] MEDS ORDERED: DEXAMETHASONE SOD INJ 4 MG/ML VIAL ONE (14:32)
[2018-01-25] MEDS ORDERED: PHENYLEPHRINE 100MCG/ML 5ML SYR ONE (14:32)
[2018-01-25] MEDS ORDERED: ONDANSETRON INJ 2 MG/ML 2 ML VIAL ONE (14:32)
[2018-01-25] MEDS ORDERED: LIDOCAINE/EPINEPHRINE 1% 20 ML VIAL ONE (14:59)
--- NOTE | 2018-01-25 15:10 | [facility] Operative Report ---
Operative Report Operative Date Jan 25, 2018. Pre-Operative Diagnosis Left leg hematoma Post-Operative Diagnosis Same Procedure(s) Performed Incision and drainage and evacuation of left leg hematoma Surgeon Dr. Lamb Residential Treatment Staff Surgeon(s) Darryn Hunter PA-C Estimated Blood Loss 25 cc Findings Left calf hematoma between the gastrocnemius and soleus muscles Specimens None Drains One Hemovac Anesthesia Type General Complication(s) none Disposition no Recovery Room / PACU Indications Patient's a 67-year-old male who has developed a calf hematoma on the left leg. This is subsequent to a graft minor injury that he had accompanied by anticoagulation with Xarelto. This is progressed over the period of about 3 weeks but is gotten acutely worse in about the past 5-7 days. He has a defibrillator in place. He has had a CT scan showing a large hematoma 22 cm x 7 x 4 located between the gastrocnemius and soleus muscles in the left calf. He does not have compartment syndrome and his neurovascular function is intact except for chronic neuropathy he has 1-2+ dorsalis pedis and posterior tib pulses. The calf is swollen and firm but not tense he does not have pain with passive movement beyond what would be expected with his pathology. Description of Procedure Informed consent obtained. Patient identified as Luis beth. Patient identified the operative site. I marked with my initials. A preop surgical timeout was performed. Preop dose of IV antibiotics given. He was taken to the operating room positioned supine on the OR table. Anesthetic was administered. A tourniquet was applied to the left thigh. The left left leg was prepped and draped in usual sterile fashion. The leg was exsanguinated with the Esmarch tourniquet inflated tone 25 mmHg DVT prophylaxis with early mobility. Once bleeding is controlled he will be started back on his Xarelto. He is on the Xarelto for cardiac reasons but is also had history of DVT. The prep examination showed swelling of the left leg some minor bruising there were some minor excoriations on the skin he had 1-2+ pitting edema there was firmness but not excessive tightness of the calf. Pedal pulses were 1-2+. 12 cm incision was made 2 cm posterior to the medial palpable subcutaneous border of the tibia. Blunt dissection performed down to subcutaneous tissues. The saphenous neurovascular structures were identified and retracted anteriorly. I then opened the fascia of the superficial posterior compartment. I performed a fasciotomy releasing it down beyond the midpoint of the left calf medially. The interval between the soleus and gastrocnemius muscles was bluntly developed. Within this interval was noted to be 150-200 cc of coagulated blood which was carefully removed manually. This tracked up into the popliteal fossa and down distally to the junction of the middle distal third. CT scan preoperatively showed no evidence of fracture. This was the location of the hematoma on the CT. I then went ahead and irrigated with bulb syringe. And then went ahead and packed the wound let the tourniquet down after 15 minutes of inflation. After applying pressure and waiting the packing was removed. There was no significant bleeding. A large Hemovac drain was inserted deep exiting distally the skin was then closed in a full-thickness fashion using 2-0 nylon. Xeroform 4 x 4's ABDs Kerlix and a full-length a 6 inch double Farhad was applied. Patient is awake from anesthesia without difficulty taken recovery room in stable condition. There were no specimens. No complications. Counts correct at the end of the case. Blood loss was approximately 25 cc. At the conclusion operation spoke patient's family informed them of my findings in detail postoperative instructions were given. He will be admitted to the hospital overnight his drainage will be monitored. Family is aware that I will be out of town beginning tomorrow and 1 of my colleagues will assume his care. He may weight-bear as tolerated. We will have medicine consultation. We will hold his Xarelto until there is adequate hemostasis. I attest to the content of the Intraoperative Record and any orders documented therein. Any exceptions are noted below.
[2018-01-25] MEDS ORDERED: OXYCODONE HCL IR 5 MG TAB (IMMEDIATE RELEASE) PO PRN (15:30)
[2018-01-25] MEDS ORDERED: SOD PHOSPHATE/SOD BIPHOSPHATE ENEMA 132 ML BTL PR PRN (15:30)
[2018-01-25] MEDS ORDERED: ACETAMINOPHEN 325 MG TAB PO PRN (15:30)
[2018-01-25] MEDS ORDERED: MAGNESIUM HYDROXIDE SUSP 30 ML UDC PO PRN (15:30)
[2018-01-25] MEDS ORDERED: MoRPHine SULFATE 2 MG/ML CARP IV PRN (15:30)
[2018-01-25] MEDS ORDERED: BISACODYL 10 MG SUPP PR PRN (15:30)
--- NOTE | 2018-01-25 15:31 | [facility] Operative Report ---
Operative Report Operative Date Jan 25, 2018. Pre-Operative Diagnosis Left leg hematoma Post-Operative Diagnosis Same Procedure(s) Performed Incision and drainage and evacuation of left leg hematoma Surgeon Dr. Lamb Asset Availability Leader Surgeon(s) Darryn Hunter PA-C Estimated Blood Loss 25 cc Findings hematoma left lower extremity Specimens None Drains One Hemovac Anesthesia Type General Complication(s) none Disposition no Recovery Room / PACU Indications Patient was evaluated by Dr. Lamb in the office with complaints of worsening left calf pain x 1 week. Denies known injury, but may have injured it while jumping off of his truck a few weeks ago. He developed swelling, difficulty weight bearing, needing to use a wheelchair to assist with ambulation. Conservative treatment vs. surgical intervention discussed. He agreed to proceed with surgery. Risks/complications discussed, informed consent obtained. Description of Procedure Patient was taken to the operating room, given general anesthesia. Time out performed, prepped and draped in routine sterile fashion. Given 2gm IV Ancef for surgical prophylaxis. I was present during the entire case, please see Dr. Lamb's operative report for further detail. Patient was awakened and taken to the recovery room in stable condition. I attest to the content of the Intraoperative Record and any orders documented therein. Any exceptions are noted below.
[2018-01-25] MEDS ORDERED: IV FLUIDS COMPLETED PRN (16:15)
[2018-01-25 16:20] VITALS: BP 116/82; PULSE 82; TEMP 36.6; O2SAT 98
--- NOTE | 2018-01-25 16:34 | Anesthesiology Progress Note ---
Anesthesia Post Op Note Date & Time Jan 25, 2018 at 16:34 Vital Signs Pain Intensity: 0 Vital Signs Past 12 Hours Date Time Temp Pulse Resp B/P (MAP) Pulse Ox O2 Delivery O2 Flow Rate FiO2 01/25/18 16:08 36.5 100 Nasal Cannula 2 01/25/18 16:05 119/86 01/25/18 16:02 79 15 01/25/18 16:02 81 15 100 01/25/18 16:00 121/86 01/25/18 15:57 78 16 100 01/25/18 15:57 77 16 01/25/18 15:55 117/88 01/25/18 15:52 71 18 100 01/25/18 15:52 71 18 01/25/18 15:51 73 14 100 01/25/18 15:51 73 14 01/25/18 15:50 110/82 01/25/18 15:46 79 18 114/86 100 01/25/18 15:46 77 18 01/25/18 15:41 70 14 01/25/18 15:41 75 14 100 01/25/18 15:40 126/83 01/25/18 15:36 74 13 01/25/18 15:36 75 13 100 01/25/18 15:35 130/80 01/25/18 15:34 74 19 01/25/18 15:34 75 19 100 01/25/18 15:30 119/89 01/25/18 15:29 83 14 100 01/25/18 15:29 77 14 01/25/18 15:26 125/81 01/25/18 15:24 76 17 100 01/25/18 15:24 72 17 01/25/18 15:20 123/88 01/25/18 15:19 36.4 78 16 123/88 100 Oxymask 10 01/25/18 15:19 74 18 01/25/18 15:19 75 18 127/79 100 01/25/18 11:58 36.4 78 18 114/74 (87) 100 Room Air Notes Mental Status: alert / awake / arousable, participated in evaluation Pt Amnestic to Procedure: Yes Nausea / Vomiting: adequately controlled Pain: adequately controlled Airway Patency, RR, SpO2: stable & adequate BP & HR: stable & adequate Hydration State: stable & adequate Anesthetic Complications: no major complications apparent
[2018-01-25 16:50] VITALS: BP 132/58; PULSE 77; TEMP 36.5; O2SAT 100
[2018-01-25] MEDS ORDERED: D5W AND 1/2NSS + 20MEQ KCL 1,000 ML IV SCH (17:00)
[2018-01-25 18:20] VITALS: BP 109/63; PULSE 83; TEMP 36.6; O2SAT 98
[2018-01-25 19:26] VITALS: BP 118/74; PULSE 86; TEMP 36.3; O2SAT 97
[2018-01-25] MEDS: DOCUSATE SODIUM 100 MG CAP PO SCH (20:36)
[2018-01-25] MEDS: CEFAZOLIN IV 2,000 MG in SYRINGE 0 ML IV SCH (20:36)
[2018-01-25] MEDS: SACUBITRIL-VALSARTAN 49-51 MG TAB PO SCH (20:36)
[2018-01-25] MEDS ORDERED: ATORVASTATIN 40 MG TAB PO SCH (21:00)
[2018-01-25 22:50] VITALS: BP 110/61; PULSE 79; TEMP 36.5; O2SAT 98
--- NOTE | 2018-01-26 02:20 | Medical Consult ---
Consultation Date of Consultation: Jan 25, 2018. Late Entry Attending Physician: Aiden Lamb M.D. Reason for Consultation: observation s/p hematoma evacuation of LLE History of Present Illness Supervising Physician: Dr. Caty Hudson Mauro Jaquez is a 67yo male with past medical hx including dyslipidemia, nonischemic cardiomyopathy, Systolic HF (LVEF 25-30% on 09/14), cardiac catheterization(08/14) for mod. non-obstructive CAD, AICD dual chamber placement (11/15), paroxysmal A. Fib s/p DCCV (03/15), Pulmonary Embolism (09/14) , LLE DVT (09/14), stage III CKD, peripheral neuropathy, and Vit B12 deficiency who presents to the hospital today for elective evacuation of a left lower leg hematoma that appears to have occurred around the time he jumped from his truck in late November. Pt is on life long Xarelto for Paroxysmal Atrial Fibrillation and past medical history includes previous DVT and PE. Pt was seen in the ED for the swelling and bruising of his calf. US was negative for DVT at that time. Pt was seen by cardiology who attempted to treat the swelling with increased Lasix dosing. This treatment failed and pt returned to the ED for increased pain, swelling and now difficulty walking. CT scan demonstrated hematoma. Pt was seen by in office by Dr. Lamb who offered both conservative or surgical treatment. Pt elected for surgical intervention. He was seen and cleared by his cattery operator. Xarelto was held starting 01/20. Surgery was successful today and the hematoma was evacuated from between the gastrocnemius and soleus muscles. A hemovac drain was left in place to monitor drainage overnight. Pt was treated with prophylactic 1g Ancef intraoperatively. The patient denies weight loss, fever, dizziness, headache, change in vision, sore throat, chest pain, palpitations, awareness of tachyarrhythmias,shortness of breath, cough, nausea, vomiting, bloody stools, diarrhea, constipation, abdominal pain, other changes in urine or bowel habits. Pt does have chronic constipation and takes Senna at home. Past Medical/Surgical History Medical Problems: DVT systolic Heart failure Hematoma of left lower extremity NICM (nonischemic cardiomyopathy) Paroxysmal atrial fibrillation pneumonia Pulmonary embolism Pulmonary nodule SOB (shortness of breath) Peripheral neuropathy Anemia Moderate nonobstructive coronary artery disease B12 deficiency Constipation Dyslipidemia Stage III chronic kidney disease Erectile dysfunction Interstial lung disease Agent [place] exposure Hx of Gangrene in [place] Surgical Problems: appendectomy tonsillectomy Bilateral carpal tunnel release Left shoulder rotator cuff repair Bilateral cataract surgery Defibrillator placement Family History Diabetes mellitus FH: cancer FH: heart disease Gallbladder disease Hypertension Kidney stones Social History Smoking Status: Former Smoker (Quit 11/2006 prev 1ppd since age 8) Alcohol Use: none Drug Use: other (Prior Alcohol abuse, quit several years ago) Marital Status: (40+ years) Housing Status: lives with significant other Occupation Status: retired Allergies Coded Allergies: Diphtheria Toxoid (Verified Allergy, Severe, CONVULSIONS, 01/25/18) Tetanus Toxoid (Verified Allergy, Severe, CONVULSIONS, 01/25/18) Pt states this was the old Tetanus with horse serum. Is able to take a new tetanus inj Home Medications Scheduled Aspirin (Aspirin 81), 81 MG PO DAILY Atorvastatin (Lipitor), 50 MG PO DAILY Cholecalciferol (Vitamin D3), 1 CAP PO DAILY Cyanocobalamin (Vitamin B12), 1 TAB PO DAILY Furosemide (Lasix), 1 TAB PO DAILY Metoprolol Succinate (Metoprolol Succinate ER), 50 MG PO QAM Rivaroxaban (Xarelto), 50 MG PO DAILY Sacubitril-Valsartan (Entresto 49-51 mg), 1 TAB PO BID Sennosides (Senna), 1 TAB PO DAILY Spironolactone (Aldactone), 12.5 MG PO DAILY Scheduled PRN Oxycodone/Acetaminophen 5MG/325MG (Percocet 5MG/325MG), 1 TAB PO Q6H PRN for Pain Current Inpatient Medications Current Inpatient Medications Medications (Trade) Dose Ordered Sig/Sukhjinder Route Start Time Stop Time Status Last Admin Dose Admin Lactated Ringer's 1,000 ml @ 15 mls/hr Q24H IV 01/25/18 06:00 01/26/18 05:59 Potassium Chloride/Dextrose/ Sod Cl 1,000 ml @ 100 mls/hr Q10H IV 01/25/18 17:00 02/24/18 16:59 01/25/18 18:03 100 MLS/HR Oxycodone HCl (Roxicodone Immediate Rel Tab) 1-2 TABS FOR PAIN 1 TABLET ... Q4H PRN PO 01/25/18 15:30 02/08/18 15:29 01/25/18 23:06 5 MG Morphine Sulfate (MoRPHine SULFATE INJ) If PO analgesic is order... Q2H PRN IV 01/25/18 15:30 02/08/18 15:29 Acetaminophen (Tylenol Tab) 650 mg Q6H PRN PO 01/25/18 15:30 02/24/18 15:29 Magnesium Hydroxide (Milk Of Magnesia Susp) 30 ml Q6H PRN PO 01/25/18 15:30 02/24/18 15:29 Bisacodyl (Dulcolax Supp) 10 mg DAILY PRN TX 01/25/18 15:30 02/24/18 15:29 Sodium Biphosphate/ Sodium Phosphate (Fleet Enema) 132 ml DAILY PRN TX 01/25/18 15:30 02/24/18 15:29 Docusate Sodium (coLACE CAP) 100 mg BID PO 01/25/18 21:00 02/24/18 20:59 01/25/18 20:36 100 MG Multivitamins (Multivitamin Tab) 1 tab QAM PO 01/26/18 09:00 02/25/18 08:59 Ondansetron HCl (Zofran Inj) 4 mg Q6H PRN IV 01/25/18 15:30 02/24/18 15:29 Pantoprazole Sodium (Protonix Tab) 40 mg QAM PO 01/26/18 09:00 01/30/18 08:59 Cefazolin Sodium 2000 mg/Syringe 15 ml @ 3.75 mls/ min Q8H IV 01/25/18 20:00 01/26/18 04:03 01/25/18 20:36 3.75 MLS/MIN Aspirin (Ecotrin Tab) 81 mg QAM PO 01/26/18 09:00 02/25/18 08:59 Atorvastatin Calcium (Lipitor Tab) 40 mg QPM PO 01/25/18 21:00 02/24/18 20:59 01/25/18 20:36 40 MG Furosemide (Lasix Tab) 20 mg QAM PO 01/26/18 09:00 02/25/18 08:59 Metoprolol Succinate (Toprol Xl Tab) 50 mg QAM PO 01/26/18 09:00 02/25/18 08:59 Sacubitril/ Valsartan (Entresto 49-51 Mg) 1 tab BID PO 01/25/18 21:00 02/24/18 20:59 01/25/18 20:36 1 TAB Spironolactone (Aldactone Tab) 12.5 mg QAM PO 01/26/18 09:00 02/25/18 08:59 Cholecalciferol (Vitamin D Tab) 2,000 inter.unit DAILY@1200 PO 01/26/18 12:00 02/25/18 11:59 Cyanocobalamin (Vitamin B-12 Tab) 1,000 mcg DAILY@1200 PO 01/26/18 12:00 02/25/18 11:59 Miscellaneous (Iv Fluids Completed) 1 ea PRN PRN N/A 01/25/18 16:15 01/25/19 16:14 Review of Systems 12 systems reviewed and negative other than previously mentioned in the HPI. Physical Exam Date Time Temp Pulse Resp B/P (MAP) Pulse Ox O2 Delivery O2 Flow Rate FiO2 01/25/18 23:10 Room Air 01/25/18 22:50 36.5 79 16 110/61 (77) 98 Room Air 01/25/18 19:26 36.3 86 17 118/74 (89) 97 Room Air 01/25/18 18:20 36.6 83 18 109/63 (78) 98 Room Air 01/25/18 16:50 36.5 77 19 132/58 (82) 100 Nasal Cannula 2.0 01/25/18 16:20 Nasal Cannula 2.0 01/25/18 16:20 36.6 82 16 116/82 (93) 98 Nasal Cannula 2.0 01/25/18 16:20 98 Nasal Cannula 2.0 01/25/18 16:08 36.5 100 Nasal Cannula 2 01/25/18 16:05 119/86 01/25/18 16:02 79 15 01/25/18 16:02 81 15 100 01/25/18 16:00 121/86 01/25/18 15:57 78 16 100 01/25/18 15:57 77 16 01/25/18 15:55 117/88 01/25/18 15:52 71 18 100 01/25/18 15:52 71 18 01/25/18 15:51 73 14 100 01/25/18 15:51 73 14 01/25/18 15:50 110/82 01/25/18 15:46 79 18 114/86 100 01/25/18 15:46 77 18 01/25/18 15:41 70 14 01/25/18 15:41 75 14 100 01/25/18 15:40 126/83 01/25/18 15:36 74 13 01/25/18 15:36 75 13 100 01/25/18 15:35 130/80 01/25/18 15:34 74 19 01/25/18 15:34 75 19 100 01/25/18 15:30 119/89 01/25/18 15:29 83 14 100 01/25/18 15:29 77 14 01/25/18 15:26 125/81 01/25/18 15:24 76 17 100 01/25/18 15:24 72 17 01/25/18 15:20 123/88 01/25/18 15:19 36.4 78 16 123/88 100 Oxymask 10 01/25/18 15:19 74 18 01/25/18 15:19 75 18 127/79 100 01/25/18 11:58 36.4 78 18 114/74 (87) 100 Room Air Vital Signs - as noted Laboratory Data - as noted Physical Exam: General - NAD, Resting in bed at 0230 watching television Eyes - PERRL, EOMI No icterus, gaze conjugate ENT - Mucosa moist, multiple missing teeth, no lesions or candidiasis Lungs - No paradoxical chest wall movement, clear to auscultation bilaterally, Crackles at the baseses. No wheezes or rhonchi Heart - Reg rate and rhythm in the 80's during exam, No murmur, rubs, clicks, or gallops appreciated Abdomen - BS present, no bruits noted, tympanic to percussion, soft, nontender, nondistended, no organomegaly Extremities - pedal pulses intact, Left leg wrapped with Hemovac in place with bloody output, Right leg in TEDs without edema Neuro - A&OX4 Strength extremities equal and appropriate bilaterally CN:PERRL, EOMI, no facial asymmetry, uvula/tongue midline Laboratory Results Emergency room results on January 20, 2018 White blood cells: 8.15 Hemoglobin/hematocrit: 11.1/33.3 Platelets: 224 Sodium 134 Potassium 4.5 Chloride 102 Carbon dioxide 26 BUN 21 Creatinine 1.42 Random glucose 114 Calcium 9.3 Assessment & Plan (1) Dyslipidemia (2) Constipation (3) B12 deficiency anemia (4) CAD (coronary artery disease) (5) CKD (chronic kidney disease) stage 3, GFR 30-59 ml/min (6) Paroxysmal atrial fibrillation (7) Postoperative state (8) Hematoma of left lower extremity POD # 0 * Pt s/p LLE Hematoma Evacuation by Dr. Lamb * Hemovac in place; monitor outpt * Complete Prophylactic Abx * Cefazolin 2g x 2 * 1g Ancef in OR * Pain relief ordered * Roxicodone * Morphine * Acetaminophen * Holding Xarelto per surgery until hemostasis is verified * Diet ordered: Will add low sodium restriction * Fluid Currently D5W half-normal +20 mEq of potassium chloride at 100 mL/hr * Will order CXR given crackles at base in EF of 25-30% * Discontinue fluids pt drinking and withstanding diet * PT/OT Consult placed * Monitor CBC Daily Cardiac Dz * Moderate nonobstructive coronary artery disease, nonischemic cardiomyopathy, AICD in place, proximal atrial fibrillation, dyslipidemia * Continue home medications including: * Aspirin 81 mg p.o. every morning * Atorvastatin 40 mg p.o. every afternoon * Furosemide 20 mg p.o. every morning * Metoprolol succinate 50 mg p.o. every morning * Spironolactone 12.5 mg p.o. every morning * Crackles noted at base * EF as noted above * CXR now * Discontinue fluids * EKG with chest pain Chronic kidney disease stage III * Continue above medications as well as Entresto (49-51) 1 tablet p.o. twice daily * Monitor PRP daily while inpatient Constipation * Senna not carried by hospital * PRNs in place B12 anemia * Continue Cyanocobalamin1 g p.o. daily Vitamin D deficiency * Continue vitamin D tab 2 international units daily GERD * Protonix 40 mg p.o. every morning Code Status: Full Resuscitation Discharge Planning: Currently planned to home
[2018-01-26 03:15] VITALS: BP 118/75; PULSE 82; TEMP 36.5; O2SAT 97
[2018-01-26] MEDS: CEFAZOLIN IV 2,000 MG in SYRINGE 0 ML IV SCH (03:35)
--- NOTE | 2018-01-26 06:33 | DIAGNOSTIC IMAGING REPORT ---
CHEST ONE VIEW PORTABLE CLINICAL HISTORY: Low EF, adventitious Lung Sounds, RO early Overload COMPARISON STUDY: Chest CT February 06, 2017. FINDINGS: Surgical anchors within the left humeral head are noted. There is a dual lead left subclavian pacer/AICD. No pneumothorax or pleural effusion is noted. There is no consolidation to suggest pneumonia. Right basilar interstitial thickening is unchanged. This is likely chronic. There is no evidence for pulmonary edema. Mild cardiomegaly is unchanged. Mediastinal contours are stable. Several calcified mediastinal and right hilar nodes are incidentally noted. IMPRESSION: No acute cardiopulmonary findings. No change in appearance of the chest. No evidence for pulmonary edema. Electronically signed by: Ramiro Ponce M.D. 01/26/2018 6:32 AM Dictated Date/Time: 01/26/2018 6:30 AM
[2018-01-26 06:50] LABS: HEMATOCRIT 26.3 % (42-52); HEMOGLOBIN 8.5 g/dL (14.0-18.0); MEAN CELL VOLUME 95.6 fL (80-100); MEAN CORPUSCULAR HEMOGLOBIN 30.9 pg (25-34); MEAN CORPUSCULAR HGB CONC 32.3 g/dl (32-36); MEAN PLATELET VOLUME 10.1 fL (7.4-10.4); PLATELET COUNT 285 K/uL (130-400); RED CELL DISTRIBUTION WIDTH CV 13.9 % (11.5-14.5); RED CELL DISTRIBUTION WIDTH SD 48.3 fL (36.4-46.3); WHITE BLOOD COUNT 9.92 K/uL (4.8-10.8)
[2018-01-26 07:10] VITALS: BP 119/76; PULSE 80; TEMP 36.3; O2SAT 95
[2018-01-26 07:21] LABS: CALCIUM 8.4 mg/dl (8.5-10.1); CREATININE 1.35 mg/dl (0.60-1.40); POTASSIUM 4.9 mmol/L (3.5-5.1)
[2018-01-26] MEDS ORDERED: DOCU-94 PO (07:31)
[2018-01-26] MEDS ORDERED: OXYC-57 PO (07:31)
--- NOTE | 2018-01-26 07:41 | Discharge Instructions-SurgCtr ---
Discharge Instructions Date of Service Jan 26, 2018. Visit Reason for Visit: Left Calf Hematoma Discharge Discharge Diagnosis / Problem: Left calf hematoma Discharge Goals Goal(s): Decrease discomfort, Improve function, Increase independence Medications Restart Stopped Medication(s): Xarelto Activity Recommendations Activity Limitations: per Instructions/Follow-up section Weightbearing Status: Left weightbearing (as tolerated with assistance of walker.) Anesthesia . Post Anesthesia Instructions: If you have had General Anesthesia or IV Sedation: * Do not drive today. * Resume driving when surgeon permits. * Do not make important decisions or sign legal documents today. * Call surgeon for: 1. Temperature elevations greater than 101 degrees F. 2. Uncontrollable pain. 3. Excessive bleeding. 4. Persistent nausea and vomiting. 5. Medication intolerance (nausea, vomiting or rash). * For nausea and vomiting use only clear liquids such as: tea, soda, bouillon until nausea subsides, then gradually increase diet as tolerated. * If you have any concerns or questions, call your surgeon's office. If physician is unavailable and it is an emergency, call 911 or go to the nearest emergency room. . Instructions / Follow-Up Instructions / Follow-Up DIET: * Resume previous diet. MEDICATIONS: *Percocet 5/325 mg 1-2 tabs p.o. every 4-6 hours as needed for pain. Take as instructed. *You may resume your Xarelto and take daily as prescribed. *Colace 100 mg twice daily (stool softener). Take daily while on pain medication. you can get this [id number]. * If concerns develop, call your physician's office at . SPECIAL CARE INSTRUCTIONS: *Ice to left calf as needed for pain and swelling. *Elevate left lower extremity as needed for pain and swelling. Elevate above heart on at least 2-3 pillows. * Keep dressing clean, dry, intact. Do not remove. Reinforce dressing as needed. Dressing will be changed at your follow-up appointment scheduled for Monday, January 29, 2018. *You are allowed for full range of motion of your left hip, left knee, and left foot. Work on gentle range of motion exercises as tolerated. Do ankle pumps frequently to help with circulation and prevent blood clots. *Wear ADAM stockings on your left lower extremity until your next follow-up appointment. At that time we may put a ADAM on your right lower extremity as well with the dressing change. *You may weight-bear as tolerated left lower extremity. Use a walker to assist with ambulation. * Your surgical extremity may be discolored due to prepping agents used on the skin. A bluish-green tint is a normal variant and should not cause alarm. Call your doctor at [phone] if: * Temperature above 101 degrees * Pain not relieved by pain medicine ordered * There is increased drainage or redness from any incision * You have any unanswered questions, problems or concerns. FOLLOW UP VISIT: * If not already scheduled, please call the office at to schedule a follow-up appointment. * * You have a follow up appointment with [facility] on 01/29/18 at 8:30 a.m. * You have a follow up with Dr. Lamb on 02/07/18 at 2:00 p.m. Diet Recommendations Home Diet: no limitations, resume previous diet Procedures Procedures Performed: Incision and drainage and evacuation of left leg hematoma Pending Studies Studies pending at discharge: no Medical Emergencies . Who to Call and When: Medical Emergencies: If at any time you feel your situation is an emergency, please call 911 immediately. . Non-Emergent Contact Non-Emergency issues call your: Surgeon Call Non-Emergent contact if: temperature is above 101, your pain is not controlled, your pain is worsening, wound has increased drainage, wound has increased redness, wound has increased pain, you have any medication questions . . "Provider Documentation" section prepared by Kinga Hunter. . [place] Drug Monitoring Program Search Results: patient reviewed within database, no issues identified
--- NOTE | 2018-01-26 07:44 | Discharge Instructions ---
Discharge Instructions Date of Service Jan 26, 2018. Admission Reason for Admission: Left Calf Hematoma Discharge Discharge Diagnosis / Problem: Left calf hematoma Discharge Goals Goal(s): Decrease discomfort, Improve function, Increase independence Activity Recommendations Activity Limitations: per Instructions/Follow-up section Weightbearing Status: Left weightbearing (as tolerated with assistance of a walker) . Instructions / Follow-Up Instructions / Follow-Up Instructions / Follow-Up Instructions / Follow-Up DIET: * Resume previous diet. MEDICATIONS: *Percocet 5/325 mg 1-2 tabs p.o. every 4-6 hours as needed for pain. Take as instructed. *You may resume your Xarelto and take daily as prescribed. *Colace 100 mg twice daily (stool softener). Take daily while on pain medication. you can get this [id number]. * If concerns develop, call your physician's office at . SPECIAL CARE INSTRUCTIONS: *Ice to left calf as needed for pain and swelling. *Elevate left lower extremity as needed for pain and swelling. Elevate above heart on at least 2-3 pillows. * Keep dressing clean, dry, intact. Do not remove. Reinforce dressing as needed. Dressing will be changed at your follow-up appointment scheduled for Monday, January 29, 2018. *You are allowed for full range of motion of your left hip, left knee, and left foot. Work on gentle range of motion exercises as tolerated. Do ankle pumps frequently to help with circulation and prevent blood clots. *Wear ADAM stockings on your left lower extremity until your next follow-up appointment. At that time we may put a ADAM on your right lower extremity as well with the dressing change. *You may weight-bear as tolerated left lower extremity. Use a walker to assist with ambulation. * Your surgical extremity may be discolored due to prepping agents used on the skin. A bluish-green tint is a normal variant and should not cause alarm. Call your doctor at [phone] if: * Temperature above 101 degrees * Pain not relieved by pain medicine ordered * There is increased drainage or redness from any incision * You have any unanswered questions, problems or concerns. FOLLOW UP VISIT: * If not already scheduled, please call the office at to schedule a follow-up appointment. * * You have a follow up appointment with [facility] on 01/29/18 at 8:30 a.m. * You have a follow up with Dr. Lamb on 02/07/18 at 2:00 p.m. Current Hospital Diet Patient's current hospital diet: Regular Diet, Low Potassium Diet (2g K), Low Sodium Diet (2gm Na), Renal Diet Discharge Diet Recommended Diet: Regular Diet Procedures Procedures Performed: Incision and drainage and evacuation of left leg hematoma Pending Studies Studies pending at discharge: no Laboratory Results Lipid Panel Test 11/30/17 08:36 Range/Units Triglycerides Level 95 0-150 mg/dl Cholesterol Level 134 0-200 mg/dl HDL Cholesterol 47 mg/dl Cholesterol/HDL Ratio 2.9 LDL Cholesterol, Calculated 68 mg/dl Medical Emergencies . Who to Call and When: Medical Emergencies: If at any time you feel your situation is an emergency, please call 911 immediately. . Non-Emergent Contact Non-Emergency issues call your: Surgeon Call Non-Emergent contact if: temperature is above 101, your pain is not controlled, wound has increased drainage, wound has increased redness, wound has increased pain, you have any medication questions . "Provider Documentation" section prepared by Kinga Hunter. . [place] Drug Monitoring Program Search Results: patient reviewed within database, no issues identified
--- NOTE | 2018-01-26 08:07 | Orthopedic Progress Note ---
Orthopedic Progress Note Date of Service Jan 26, 2018. Subjective Post OP Day: 1 Reports: feeling well, calf pain, pain controlled w PO medications, Denies: complaints, chest pain, SOB, nausea / vomiting, light headedness Objective N/V intact, capillary refill less than 2 sec., dressing C/D/I, A&O x3, toes mobile, hemovac drainage (25 ml first shift/ 0ml last shift) Calf tender to palpation as expected, dressings clean, dry, intact. Hemovac pulled at bedside. Dressings reinforced. Able to actively SLR LLE; tolerates gentle dorsiflexion/plantarflexion left ankle with pain. Tolerates gentle ROM left knee Date Time Temp Pulse Resp B/P (MAP) Pulse Ox O2 Delivery O2 Flow Rate FiO2 01/26/18 07:10 36.3 80 16 119/76 (90) 95 Room Air 01/26/18 07:09 Room Air 01/26/18 03:15 36.5 82 16 118/75 (89) 97 Room Air 01/25/18 23:10 Room Air 01/25/18 22:50 36.5 79 16 110/61 (77) 98 Room Air 01/25/18 19:26 36.3 86 17 118/74 (89) 97 Room Air 01/25/18 18:20 36.6 83 18 109/63 (78) 98 Room Air 01/25/18 16:50 36.5 77 19 132/58 (82) 100 Nasal Cannula 2.0 01/25/18 16:20 Nasal Cannula 2.0 01/25/18 16:20 36.6 82 16 116/82 (93) 98 Nasal Cannula 2.0 01/25/18 16:20 98 Nasal Cannula 2.0 01/25/18 16:08 36.5 100 Nasal Cannula 2 01/25/18 16:05 119/86 01/25/18 16:02 79 15 01/25/18 16:02 81 15 100 01/25/18 16:00 121/86 01/25/18 15:57 78 16 100 01/25/18 15:57 77 16 01/25/18 15:55 117/88 01/25/18 15:52 71 18 100 01/25/18 15:52 71 18 01/25/18 15:51 73 14 100 01/25/18 15:51 73 14 01/25/18 15:50 110/82 01/25/18 15:46 79 18 114/86 100 01/25/18 15:46 77 18 01/25/18 15:41 70 14 01/25/18 15:41 75 14 100 01/25/18 15:40 126/83 01/25/18 15:36 74 13 01/25/18 15:36 75 13 100 01/25/18 15:35 130/80 01/25/18 15:34 74 19 01/25/18 15:34 75 19 100 01/25/18 15:30 119/89 01/25/18 15:29 83 14 100 01/25/18 15:29 77 14 01/25/18 15:26 125/81 01/25/18 15:24 76 17 100 01/25/18 15:24 72 17 01/25/18 15:20 123/88 01/25/18 15:19 36.4 78 16 123/88 100 Oxymask 10 01/25/18 15:19 74 18 01/25/18 15:19 75 18 127/79 100 01/25/18 11:58 36.4 78 18 114/74 (87) 100 Room Air Laboratory Results 24 Hours: Test 01/26/18 06:31 Hematocrit 26.3 % Hemoglobin 8.5 g/dL Assessment & Plan Assessment: POD 1 - evacuation left leg hematoma Plan: WBAT LLE with assistance of a walker Ice to left calf as needed for pain/swelling. Elevate left leg on 2-3 pillows for elevation Encouraged I.S. and ankle pumps LLE Teds/foot pumps for DVT prophylaxis. Will resume Xarelto today. OOB with PT today. Findings discussed with Dr. Peralta in Dr. Lamb's absence. Will plan for discharge to home with today after lunch if medically stable and safe from PT standpoint. (1) Dyslipidemia (2) Constipation (3) B12 deficiency anemia (4) CAD (coronary artery disease) (5) CKD (chronic kidney disease) stage 3, GFR 30-59 ml/min (6) Paroxysmal atrial fibrillation (7) Postoperative state (8) Hematoma of left lower extremity Discharge Planning Discharge Planning: home Pain Management: Percocet DVT Prophylaxis: TEDs, Xarelto
[2018-01-26] MEDS: SACUBITRIL-VALSARTAN 49-51 MG TAB PO SCH (08:38)
[2018-01-26] MEDS: DOCUSATE SODIUM 100 MG CAP PO SCH (08:42)
[2018-01-26] MEDS ORDERED: FUROSEMIDE 20 MG TAB PO SCH (09:00)
[2018-01-26] MEDS ORDERED: SPIRONOLACTONE 25 MG TAB PO SCH (09:00)
[2018-01-26] MEDS ORDERED: PANTOprazole SOD 40 MG TAB PO SCH (09:00)
[2018-01-26] MEDS ORDERED: METOPROLOL SUCC 50MG EXT REL TAB PO SCH (09:00)
[2018-01-26] MEDS ORDERED: MULTIVITAMIN TAB PO SCH (09:00)
[2018-01-26] MEDS ORDERED: ASPIRIN 81 MG ECTAB PO SCH (09:00)
--- NOTE | 2018-01-26 09:32 | Anesthesiology Progress Note ---
Anesthesia Post Op Note Date & Time Jan 26, 2018 at 09:31 Vital Signs Pain Intensity: 0.0 Vital Signs Past 12 Hours Date Time Temp Pulse Resp B/P (MAP) Pulse Ox O2 Delivery O2 Flow Rate FiO2 01/26/18 07:10 36.3 80 16 119/76 (90) 95 Room Air 01/26/18 07:09 Room Air 01/26/18 03:15 36.5 82 16 118/75 (89) 97 Room Air 01/25/18 23:10 Room Air 01/25/18 22:50 36.5 79 16 110/61 (77) 98 Room Air Notes Mental Status: alert / awake / arousable, participated in evaluation Pt Amnestic to Procedure: Yes Nausea / Vomiting: adequately controlled Pain: adequately controlled Airway Patency, RR, SpO2: stable & adequate BP & HR: stable & adequate Hydration State: stable & adequate Anesthetic Complications: no major complications apparent
[2018-01-26 10:37] VITALS: BP 120/68; PULSE 87; O2SAT 97
--- NOTE | 2018-01-26 11:10 | Hospitalist Progress Note ---
Hospitalist Progress Note Date of Service Jan 26, 2018. Subjective Pt evaluation today including: conversation w/ patient, conversation w/ family Patient feeling very well. Denies chest pain or shortness of breath. He is making good urine. He denies lightheadedness. Hemoglobin noted to be down to 8.5 from baseline of 11.1 preoperatively. All Other Systems: Reviewed and Negative Objective Vital Signs Date Time Temp Pulse Resp B/P (MAP) Pulse Ox O2 Delivery O2 Flow Rate FiO2 01/26/18 07:10 36.3 80 16 119/76 (90) 95 Room Air 01/26/18 07:09 Room Air 01/26/18 03:15 36.5 82 16 118/75 (89) 97 Room Air 01/25/18 23:10 Room Air 01/25/18 22:50 36.5 79 16 110/61 (77) 98 Room Air 01/25/18 19:26 36.3 86 17 118/74 (89) 97 Room Air 01/25/18 18:20 36.6 83 18 109/63 (78) 98 Room Air 01/25/18 16:50 36.5 77 19 132/58 (82) 100 Nasal Cannula 2.0 01/25/18 16:20 Nasal Cannula 2.0 01/25/18 16:20 36.6 82 16 116/82 (93) 98 Nasal Cannula 2.0 01/25/18 16:20 98 Nasal Cannula 2.0 01/25/18 16:08 36.5 100 Nasal Cannula 2 01/25/18 16:05 119/86 01/25/18 16:02 79 15 01/25/18 16:02 81 15 100 01/25/18 16:00 121/86 01/25/18 15:57 78 16 100 01/25/18 15:57 77 16 01/25/18 15:55 117/88 01/25/18 15:52 71 18 100 01/25/18 15:52 71 18 01/25/18 15:51 73 14 100 01/25/18 15:51 73 14 01/25/18 15:50 110/82 01/25/18 15:46 79 18 114/86 100 01/25/18 15:46 77 18 01/25/18 15:41 70 14 01/25/18 15:41 75 14 100 01/25/18 15:40 126/83 3/29/18 15:36 74 13 01/25/18 15:36 75 13 100 01/25/18 15:35 130/80 01/25/18 15:34 74 19 01/25/18 15:34 75 19 100 01/25/18 15:30 119/89 01/25/18 15:29 83 14 100 01/25/18 15:29 77 14 01/25/18 15:26 125/81 01/25/18 15:24 76 17 100 01/25/18 15:24 72 17 01/25/18 15:20 123/88 01/25/18 15:19 36.4 78 16 123/88 100 Oxymask 10 01/25/18 15:19 74 18 01/25/18 15:19 75 18 127/79 100 01/25/18 11:58 36.4 78 18 114/74 (87) 100 Room Air Physical Exam General Appearance: WD/WN, no apparent distress Eyes: normal inspection, sclerae normal ENT: hearing grossly normal Neck: trachea midline Respiratory/Chest: lungs clear, normal breath sounds, no respiratory distress, no accessory muscle use Cardiovascular: regular rate, rhythm, no edema, no murmur Abdomen: normal bowel sounds, non tender, soft Extremities: no calf tenderness, + pertinent finding (Left leg in compression wrap with Farhad wrap not removed, C/D/I) Neurologic/Psychiatric: alert, normal mood/affect, oriented x 3 Skin: normal color, warm/dry, no rash Laboratory Results Last 24 Hours Test 01/26/18 06:31 White Blood Count 9.92 K/uL Red Blood Count 2.75 M/uL Hemoglobin 8.5 g/dL Hematocrit 26.3 % Mean Corpuscular Volume 95.6 fL Mean Corpuscular Hemoglobin 30.9 pg Mean Corpuscular Hemoglobin Concent 32.3 g/dl RDW Standard Deviation 48.3 fL RDW Coefficient of Variation 13.9 % Platelet Count 285 K/uL Mean Platelet Volume 10.1 fL Sodium Level 134 mmol/L Potassium Level 4.9 mmol/L Chloride Level 105 mmol/L Carbon Dioxide Level 23 mmol/L Anion Gap 7.0 mmol/L Blood Urea Nitrogen 26 mg/dl Creatinine 1.35 mg/dl Est Creatinine Clear Calc Drug Dose 64.4 ml/min Estimated GFR () 61.6 Estimated GFR (Non- 53.2 BUN/Creatinine Ratio 18.9 Random Glucose 123 mg/dl Calcium Level 8.4 mg/dl Assessment and Plan This patient is a 67-year-old male with a history of dyslipidemia, nonischemic cardiomyopathy, Systolic HF (LVEF 25-30% on 09/14), cardiac catheterization() for mod. non-obstructive CAD, AICD dual chamber placement (11/15), paroxysmal A. Fib s/p DCCV (03/15), Pulmonary Embolism (09/14) on Xarelto, LLE DVT (09/14), stage III CKD, peripheral neuropathy, and Vit B12 deficiency who presents for left leg hematoma evacuation. LLE Hematoma - stable. Care per primary team-drain removed and stable for discharge home today Acute blood loss anemia-is down 2.5 g to 8.5 and his hemoglobin today likely from blood loss from hematoma and surgery. He is restarting his Xarelto tonight and advised to keep his compression dressing on and to watch for signs of bleeding. He should have a follow-up CBC with his PCP next week in follow-up CAD/chronic systolic CHF, PPM/PAF status post DC CV-all conditions stable. Resumed home medications. CXR and clinically with no evidence of volume overload. Continue home medications including: * Aspirin 81 mg p.o. every morning * Atorvastatin 40 mg p.o. every afternoon * Furosemide 20 mg p.o. every morning * Metoprolol succinate 50 mg p.o. every morning * Spironolactone 12.5 mg p.o. every morning CKD stage III stable PAF - rate controlled and in normal sinus rhythm here. Agree with resuming anticoagulation with Xarelto today Vitamin B12 deficiency-stable * Continue Cyanocobalamin1 g p.o. daily Vitamin D deficiency * Continue vitamin D GERD * Protonix 40 mg p.o. every morning Code Status: Full Resuscitation Discharge Planning: Currently planned to home today-stable from medical standpoint
[2018-01-26 11:49] VITALS: BP 119/76; PULSE 80; TEMP 36.3; O2SAT 95
[2018-01-26] MEDS ORDERED: CHOLECALCIFEROL 1000 INTER.UNIT TAB PO SCH (12:00)
[2018-01-26] MEDS ORDERED: CYANOCOBALAMIN 500 MCG TAB (VIT B-12) PO SCH (12:00)
--- NOTE | 2018-01-26 13:20 | Discharge Summary ---
Discharge Summary Date of Service Jan 26, 2018. Discharge Summary Admission Date: Jan 25, 2018 at 11:36 Discharge Date: Jan 26, 2018 Discharge Disposition: Home Principal Diagnosis: Left leg hematoma Procedures: Evacuation left leg hematoma on January 25, [address] Aiden Lamb Consultations: Hospitalist consult for postop medical management. Pending Studies/Follow-Up: * You have a follow up appointment with [facility] on 01/29/18 at 8: 30 a.m. * You have a follow up with Dr. Lamb on 02/07/18 at 2:00 p.m. Medication Reconciliation New Medications: Docusate Sodium (Colace) 100 Mg Cap 1 CAP PO BID for 30 Days, #60 CAP 0 Refills Oxycodone/Acetaminophen 5MG/325MG (Percocet 5MG/325MG) Tab 1-2 TABLETS PO Q4H PRN for Pain, #30 TAB Continued Medications: Aspirin (Aspirin 81) 81 Mg Tab 81 MG PO QAM Atorvastatin (Lipitor) 40 Mg Tab 50 MG PO QPM Cholecalciferol (Vitamin D3) 2,000 Unit Cap 1 CAP PO NOON for 30 Days, CAP 3 Refills Cyanocobalamin (Vitamin B12) 1,000 Mcg Tab 1 TAB PO NOON Furosemide (Lasix) 20 Mg Tab 1 TAB PO QAM for 90 Days, #90 TAB 1 Refill Metoprolol Succinate (Toprol Xl) 50 Mg Tab 50 MG PO QAM, #30 TAB Rivaroxaban (Xarelto) 20 Mg Tab 20 MG PO QPM, TAB PUT ON HOLD SINCE 01/20/18 Sacubitril-Valsartan (Entresto 49-51 mg) 1 Tab Tab 1 TAB PO BID Sennosides (Senna) 8.6 Mg Cap 1 TAB PO PRN Spironolactone (Aldactone) 25 Mg Tab 12.5 MG PO QAM, TAB Discontinued Medications: Oxycodone/Acetaminophen 5MG/325MG (Oxycodone/Acetaminophen 5MG/325MG) 1 Tab Tab 1 TABLET PO Q6H, TAB Admission Information HPI (per Admitting provider): Patient is a 67-year-old male who was seen and evaluated by Dr. Lamb yesterday in our outpatient clinic. As evaluated for his left leg. He states that on December 26 he jumped out of the back of his truck, landing more so on the left leg. He did not sustain at that time any type of injury. He noticed on January 09 some bruising and swelling in his calf. Went to the emergency room to make sure that he did not have a blood clot an ultrasound was done which was negative for DVT. He then followed up with his heart doctor and an increasing dose of Lasix to try to get rid of the swelling in his left leg. Then 4 days ago he developed increased swelling and pain causing him significant difficulty with walking. He went again to the emergency room had a CT scan and was diagnosed with a hematoma and discharged home. He is currently on Xarelto and aspirin 81 mg daily. He has no history of bleeding or clotting problems. He was instructed by the emergency room physician to stop his around toe and that was stopped as of January 20, 2018. He does have a history of neuropathy in both legs. He thinks that that may be is a little worse at the time being. His leg pain is consistently a 3/10 at rest and is located in the front and back of the left lower leg. He states that he is currently using a wheelchair to get around with ambulation due to the pain and discomfort in his leg with walking. He also uses a walker at home to assist with ambulation. Prior to this injury and the swelling he did not use any assistive device for ambulation. After discussion with Dr. Lamb, it was offered surgical intervention for evacuation of the hematoma. We also could continue conservative treatment with compression rest ice and elevation. The patient has elected to proceed with evacuation of the left leg hematoma. Surgery was scheduled for January 25, 2018. Physical Exam (per Admitting): General Appearance: WD/WN, no apparent distress Head: normocephalic, atraumatic Eyes: normal inspection, PERRL, EOMI, sclerae normal ENT: normal ENT inspection, hearing grossly normal, TMs normal (Right TM normal, left Ear canal impacted with cerumen), pharynx normal Neck: supple, no adenopathy, no carotid bruits, trachea midline Respiratory/Chest: chest non-tender, lungs clear, normal breath sounds, no respiratory distress, no accessory muscle use Cardiovascular: regular rate, rhythm, no edema, no murmur, normal peripheral pulses Abdomen/GI: normal bowel sounds, non tender, soft Extremities/Musculoskelatal: normal capillary refill, normal range of motion , non-tender, pelvis stable, + pertinent finding (Exam of left lower extremity: Left leg is swollen 1-2+ edema, down calf, ankle and into the foot. The foot is nontender. He does have some tenderness around the ankle with palpation.Active flexion and extension of the ankle causes discomfort around the ankle area. He does have some tenderness medial and posterior medial calf. There is fullness, but not tenseness. He has minimal pain with passive movement of the toes and ankle. He has 5 to 5-/5 ankle and toe plantar flexion , dorsiflexion, inversion and eversion. He reports numbness in both of his feet , which is chronic and slightly worse than normal on both sides.Distal pulses are 2+ at dorsalis pedis and posterior tib. The foot is warm with good capillary refill. He is able to independently leg left. Range of motion of his left knee is 0-90. Bony prominences of the leg, ankle and knee are nontender.) Neurologic/Psych: no motor/sensory deficits, alert, normal mood/affect, oriented x 3 Skin: normal color, warm/dry, no rash Hospital Course Patient is a 67-year-old male who was admitted on January 25, 2018 to the [facility] after undergoing evacuation of his left leg hematoma. He injured his left leg a few weeks ago by jumping off of a truck. His pain and tightness of his left calf worsened over the last week. Surgical intervention was recommended and he agreed to proceed. Surgery was done with general anesthesia. Tolerated the surgery well without any intraoperative complications. Hemovac was placed at the time of surgery. He was given 2 g of IV Ancef for surgical prophylaxis and this was continued for 24 hours postoperatively. He was allowed out of bed, weight-bear as tolerated with the assistance of a walker. Hospitalist consult was placed for postoperative medical management. Chest x-ray was ordered during his inpatient stay and was negative for any cardiopulmonary findings. Incentive spirometer was encouraged. He was given a regular diet during his inpatient stay. His Xarelto was held postoperatively until hemostasis was obtained. He had minimal drainage of his Hemovac and it was pulled at the bedside on postop day 1. Dressings were reinforced after the drain was pulled. He did well out of bed with minimal assist in the assistance of a walker. It well out of bed. He was stable from a medical standpoint for discharge. The did recommend obtaining a CBC next week due to postop to blood loss anemia. Follow-up scheduled for Monday for dressing change and wound check. He was discharged to his home today in stable condition. Discharge instructions were provided. Total time spent on discharge = This includes examination of the patient, discharge planning, medication reconciliation, and communication with other providers. Discharge Instructions Discharge Instructions Date of Service Jan 26, 2018. Admission Reason for Admission: Left Calf Hematoma Discharge Discharge Diagnosis / Problem: Left calf hematoma Discharge Goals Goal(s): Decrease discomfort, Improve function, Increase independence Activity Recommendations Activity Limitations: per Instructions/Follow-up section Weightbearing Status: Left weightbearing (as tolerated with assistance of a walker) . Instructions / Follow-Up Instructions / Follow-Up Instructions / Follow-Up Instructions / Follow-Up DIET: * Resume previous diet. MEDICATIONS: *Percocet 5/325 mg 1-2 tabs p.o. every 4-6 hours as needed for pain. Take as instructed. *You may resume your Xarelto and take daily as prescribed. *Colace 100 mg twice daily (stool softener). Take daily while on pain medication. you can get this [id number]. * If concerns develop, call your physician's office at . SPECIAL CARE INSTRUCTIONS: *Ice to left calf as needed for pain and swelling. *Elevate left lower extremity as needed for pain and swelling. Elevate above heart on at least 2-3 pillows. * Keep dressing clean, dry, intact. Do not remove. Reinforce dressing as needed. Dressing will be changed at your follow-up appointment scheduled for Monday, January 29, 2018. *You are allowed for full range of motion of your left hip, left knee, and left foot. Work on gentle range of motion exercises as tolerated. Do ankle pumps frequently to help with circulation and prevent blood clots. *Wear ADAM stockings on your left lower extremity until your next follow-up appointment. At that time we may put a ADAM on your right lower extremity as well with the dressing change. *You may weight-bear as tolerated left lower extremity. Use a walker to assist with ambulation. * Your surgical extremity may be discolored due to prepping agents used on the skin. A bluish-green tint is a normal variant and should not cause alarm. Call your doctor at [phone] if: * Temperature above 101 degrees * Pain not relieved by pain medicine ordered * There is increased drainage or redness from any incision * You have any unanswered questions, problems or concerns. FOLLOW UP VISIT: * If not already scheduled, please call the office at to schedule a follow-up appointment. * * You have a follow up appointment with [facility] on 01/29/18 at 8:30 a.m. * You have a follow up with Dr. Lamb on 02/07/18 at 2:00 p.m. Current Hospital Diet Patient's current hospital diet: Regular Diet, Low Potassium Diet (2g K), Low Sodium Diet (2gm Na), Renal Diet Discharge Diet Recommended Diet: Regular Diet Procedures Procedures Performed: Incision and drainage and evacuation of left leg hematoma Pending Studies Studies pending at discharge: no Laboratory Results Lipid Panel Test 11/30/17 08:36 Range/Units Triglycerides Level 95 0-150 mg/dl Cholesterol Level 134 0-200 mg/dl HDL Cholesterol 47 mg/dl Cholesterol/HDL Ratio 2.9 LDL Cholesterol, Calculated 68 mg/dl Medical Emergencies . Who to Call and When: Medical Emergencies: If at any time you feel your situation is an emergency, please call 911 immediately. . Non-Emergent Contact Non-Emergency issues call your: Surgeon Call Non-Emergent contact if: temperature is above 101, your pain is not controlled, wound has increased drainage, wound has increased redness, wound has increased pain, you have any medication questions . "Provider Documentation" section prepared by Kinga Hunter. . [place] Drug Monitoring Program Search Results: patient reviewed within database, no issues identified
[2018-01-26] MEDS ORDERED: RIVAROXABAN 20 MG TAB PO SCH (21:00)
== END 2018-01-26 12:12 | disposition home or self-care (01) ==
LOC: C.ACU 10:49 → C.3E 11:36 → ENRESERV 15:44
PROVIDERS: ADMIT Physical Medicine & Rehabilitation Sports Medicine; ATTEND Physical Medicine & Rehabilitation Sports Medicine
DX: S80.12XA Contusion of left lower leg, initial encounter (principal); I11.0 Hypertensive heart disease with heart failure; I50.20 Unspecified systolic (congestive) heart failure; N18.3 Chronic kidney disease, stage 3 (moderate); X58.XXXA Exposure to other specified factors, initial encounter; I25.10 Atherosclerotic heart disease of native coronary artery without angina pectoris; I48.0 Paroxysmal atrial fibrillation; Z79.899 Other long term (current) drug therapy; Z79.82 Long term (current) use of aspirin; Z79.01 Long term (current) use of anticoagulants; Z87.891 Personal history of nicotine dependence; Z86.711 Personal history of pulmonary embolism; Z86.718 Personal history of other venous thrombosis and embolism; Z88.7 Allergy status to serum and vaccine; Z90.89 Acquired absence of other organs; Z98.890 Other specified postprocedural states; Z98.41 Cataract extraction status, right eye; Z98.42 Cataract extraction status, left eye; Z83.3 Family history of diabetes mellitus; Z80.9 Family history of malignant neoplasm, unspecified; Z82.49 Family history of ischemic heart disease and other diseases of the circulatory system

== ENCOUNTER → 2018-02-02 | Outpatient (CLI) | payer OTHER ==
[~2018-02-02] MED LIST changes: -CEFAZOLIN SOD 2000MG/15 ML IV PUSH IV ONE; +DOCU-94 PO; -FENTANYL CITRATE INJ 50 MCG/1 ML 2 ML VIAL ONE; -LACTATED RINGER'S 1000ML 1,000 ML IV SCH; -LIDOCAINE HCL 2% 2 ML VIAL (20MG/ML) ONE; -MIDAZOLAM HCL 1 MG/ML 2ML VIAL ONE; +OXYC-57 PO; -OXYC-643 PO; -PROPOFOL IV EMULSION 10 MG/ML 20 ML VIAL IV ONE
[2018-02-02 12:25] LABS: BASO % 0.4 %; BASO ABS # 0.04 K/uL (0-0.2); EOS % 3.1 %; EOS ABS # 0.29 K/uL (0-0.5); HEMOGLOBIN 9.8 g/dL (14.0-18.0); IG# 0.04 K/uL (0.00-0.02); LYMPH % 14.3 %; LYMPH ABS # 1.33 K/uL (1.2-3.4); MEAN CELL VOLUME 96.9 fL (80-100); MEAN CORPUSCULAR HEMOGLOBIN 30.6 pg (25-34); MEAN CORPUSCULAR HGB CONC 31.6 g/dl (32-36); MEAN PLATELET VOLUME 10.3 fL (7.4-10.4); MONO % 8.9 %; MONO ABS # 0.83 K/uL (0.11-0.59); NEUT % 72.9 %; NEUT ABS # 6.76 K/uL (1.4-6.5); PLATELET COUNT 520 K/uL (130-400); RED CELL DISTRIBUTION WIDTH CV 14.1 % (11.5-14.5); WHITE BLOOD COUNT 9.29 K/uL (4.8-10.8)
== END | disposition home or self-care (01) ==
LOC: C.LAB1850 09:54
PROVIDERS: ATTEND Physician Assistant
DX: M79.89 Other specified soft tissue disorders (principal)

== ENCOUNTER 2018-06-18 11:51 | Inpatient (IN) | payer OTHER ==
[~2018-06-18] VITALS: Ht 185.4 cm; Wt 103.3 kg
--- NOTE | 2018-06-18 12:28 | EMERGENCY ROOM VISIT NOTE ---
History Report prepared by Aline: Jenn Gusman Under the Supervision of: Dr. Franklin Shahid M.D. First contact with patient: 12:02 Chief Complaint: SWELLING TO EXTREMITY Stated Complaint: SWOLLEN,DISCOLORED LEFT LEG FROM FORMER HEMATOMA History of Present Illness The patient is a 67 year old male who presents to the Emergency Room with complaints of worsening swelling to his left lower extremity that onset 4 ays ago. He notes that he was referred to the ED by his PCP. He notes that he had a surgery a few months ago to drain a hematoma in his leg. He notes that he had a hematoma during the surgery. The patient complains of pain in his lower left leg behind his knee. The patient denies chest pain and shortness of breath. He also denies recent falls or twisting his ankle. He notes that he is currently taking Xarelto. Source of History: patient Onset: 4 days ago Position: leg (left) Quality: other (swelling) Timing: worsening Associated Symptoms: No chest pain, No SOB Note: The patient complains of pain behind is left knee. Review of Systems See HPI for pertinent positives and negatives. A total of ten systems were reviewed and were otherwise negative. Past Medical & Surgical Medical Problems: (1) B12 deficiency anemia (2) CAD (coronary artery disease) (3) CKD (chronic kidney disease) stage 3, GFR 30-59 ml/min (4) Constipation (5) Dyslipidemia (6) Heart failure (7) Hematoma (8) Hematoma of left lower extremity (9) NICM (nonischemic cardiomyopathy) (10) Paroxysmal atrial fibrillation (11) Pneumonia (12) Pulmonary embolism (13) Pulmonary nodule (14) SOB (shortness of breath) Surgical Problems: (1) Postoperative state (2) S/P appendectomy (3) S/P tonsillectomy Family History Diabetes mellitus FH: cancer FH: heart disease Gallbladder disease Hypertension Kidney stones Social History Smoking Status: Never Smoker Drug Use: other Marital Status: Housing Status: lives with significant other Occupation Status: retired Current/Historical Medications Scheduled Aspirin (Aspirin 81), 81 MG PO QAM Atorvastatin (Lipitor), 50 MG PO QPM Cholecalciferol (Vitamin D3), 1 CAP PO NOON Cyanocobalamin (Vitamin B12), 1 TAB PO NOON Furosemide (Lasix), 1 TAB PO QAM Metoprolol Succinate (Toprol Xl), 50 MG PO QAM Rivaroxaban (Xarelto), 20 MG PO QPM Sacubitril-Valsartan (Entresto 49-51 mg), 1 TAB PO BID Sennosides (Senna), 1 TAB PO PRN Spironolactone (Aldactone), 12.5 MG PO QAM Allergies Coded Allergies: Diphtheria Toxoid (Verified Allergy, Severe, CONVULSIONS, 06/18/18) Tetanus Toxoid (Verified Allergy, Severe, CONVULSIONS, 06/18/18) Pt states this was the old Tetanus with horse serum. Is able to take a new tetanus inj Physical Exam Vital Signs Date Time Temp Pulse Resp B/P (MAP) Pulse Ox O2 Delivery O2 Flow Rate FiO2 06/18/18 13:30 74 20 104/63 98 Room Air 06/18/18 11:54 36.3 90 18 117/70 95 Room Air Physical Exam Physical Exam GENERAL: He is oriented to person, place, and time. He appears well-developed and well-nourished. He does not appear distressed. HENT: Exam performed. Head: Normocephalic and atraumatic. Right Ear: External ear normal. No mastoid tenderness. Left Ear: External ear normal. No mastoid tenderness. Mouth/Throat: The oropharynx is clear and moist. No trismus in the jaw. No dental abscesses or uvula swelling. No oropharyngeal exudate or tonsillar abscesses. EYES: Conjunctivae and EOM are normal. Pupils are equal, round, and reactive to light. Right eye exhibits no discharge. Left eye exhibits no discharge. No scleral icterus. NECK: Normal range of motion. Neck supple. No JVD present. No spinous process tenderness present. No carotid bruit present. No rigidity. No tracheal deviation and normal range of motion present. No Brudzinski's sign and no Kernig 's sign noted. CV: Normal rate, regular rhythm, normal heart sounds and intact distal pulses. There is no peripheral edema. Palpable radial pulses bue. PULM/CHEST: Effort normal and breath sounds normal. No respiratory distress. No stridor. He has no wheezes. He has no rales. Chest Wall: He exhibits no tenderness. ABD: The abdomen is soft. Bowel sounds are normal. He has no distension. No mass is present. There is no tenderness. There is no rebound, no guarding, no Stearns's sign and no tenderness at McBurney's point. Rovsig negative. MUSC/SKEL: Left lower extremity pain to palpation of the popliteal area of the proximal posterior cap. Lockman, posterior drawer, valgus/varus stress negative. Palatable DT and PT pulses bilaterally. Scar in his left lower extremity similar to fasciotomy scar. No obvious drainage erythema or bleeding from the scar. Bilateral lower external knee compartments soft. LYMPH: No cervical adenopathy. NEURO: He is alert and oriented to person, place, and time. He has normal strength. No cranial nerve deficit or sensory deficit. Coordination and gait normal. GCS eye subscore is 4. GCS verbal subscore is 5. GCS motor subscore is 6. Cerebellar tests wnl. SKIN: Skin is warm and dry. He is not diaphoretic. PSYCH: He has a normal mood and affect. Behavior is normal. Judgment and thought content normal. Medical Decision & Procedures ER Provider Diagnostic Interpretation: Radiology results as stated below per my review and radiologist interpretation: ULTRASOUND L VENOUS DOPP LOWER EXT UNILAT CLINICAL HISTORY: LLE popliteal pain and calf swelling hx of hematoma evacuation COMPARISON STUDY: December 2017 FINDINGS: Real-time and color flow Doppler imaging were performed. Flow was seen within the femoral, popliteal and calf veins with no intraluminal thrombus demonstrated. The saphenous vein is patent. IMPRESSION: No evidence of left lower extremity DVT Electronically signed by: Nasir Lyons M.D. 06/18/2018 1:01 PM Dictated Date/Time: 06/18/2018 1:00 PM L LOWER EXTREMITY WITH HISTORY: 67 years-old Male r/o calf hematoma acute pain and swelling of the left lower extremity with possible calf hematoma. COMPARISON: CT of the left lower extremity 01/20/2018, duplex venous Doppler study of same day TECHNIQUE: Multiple axial CT images of the left lower extremity were obtained following the intravenous administration of 92 mL Optiray 320 IV contrast. Coronal and sagittal reformatted images were obtained from the axial data set and were submitted for review. A dose lowering technique was used consistent with the principals of AMIE. FINDINGS: There is mild muscular atrophy about the lower leg. Intramuscular hematoma of the medial head gastrocnemius measures 7.7 x 3.4 x 10.5 cm in AP, transverse and cranial, dimension is. Moderate subcutaneous edema is noted about the dorsal mid and lower leg. Perifascial edema is noted about the medial head gastrocnemius. Moderate mixed plaquing about the arterial vessels. Fluid is seen tracking along the semimembranosus tendon. This study is not tailored to assess seen from 6 tendons and ligaments. Tricompartmental osteoarthritis, at least moderate within the medial and patellofemoral compartments with joint space narrowing, subchondral sclerosis and marginal osteophytosis. There is no acute fracture or dislocation. Corticated bone fragments adjacent to the medial and lateral malleoli suggest remote fracture avulsion fractures. Subcortical cystic changes are noted about the midfoot. Trace knee joint effusion. IMPRESSION: 1. Intramuscular hematoma of the medial head gastrocnemius measures up to 7.7 cm in length. Moderate subcutaneous and associated perifascial edema is likely reactive. 2. No acute fracture or dislocation. 3. Peripheral arterial disease. 4. Tricompartmental osteoarthritis about the knee, moderate within the medial compartment. The above report was generated using voice recognition software. It may contain grammatical, syntax or spelling errors. Electronically signed by: Portillo Sapp M.D. 06/18/2018 1:39 PM Dictated Date/Time: 06/18/2018 1:26 PM Laboratory Results Test 06/18/18 12:31 Bedside Hemoglobin 11.9 g/dl (14.0-18.0) Bedside Hematocrit 35 % (42-52) Bedside Sodium 140 mEq/L (135-144) Bedside Potassium 4.6 mEq/L (3.3-5.0) Bedside Chloride 101 mEq/L (101-112) Bedside Total CO2 25 mEq/l (24-31) Anion Gap 20.0 mmol/L (16-25) Bedside Blood Urea Nitrogen 24 mg/dl (7-18) Bedside Creatinine 1.3 mg/dl (0.6-1.3) Bedside Glucose (other) 94 mg/dl (70-99) Bedside Ionized Calcium (Aime) 1.17 mmol/l (1.12-1.32) ED Course 1205: The patient was evaluated in room B3. A complete history and physical exam was performed. 1210: EMR revised patient had evacuation of the left lower extremity hematoma by Dr. Lamb done on January 25, 2018. He had a 22x7x4 cm hematoma located between the gastrocnemius and soleus on the left calf. 1350: No signs stable. Ultrasound shows no DVT. CT of the lower extremity shows 7.7 x 3.4 x 10.5 cm hematoma in the medial head of the gastrocnemius. Spoke with Dr. Krista Mendez and made him aware of the hematoma on the CT scan. He said to speak with the doctor who is prescribing the Xarelto and ask if he can stop taking the medication. He said to discharge him with crutches/ walker and a split. He said to se him in office tomorrow or day. Spoke with his family and they said Dr. Wheat is the cardiology that prescribed Xarelto for a-fib. 1354: Spoke with Dr. Wheat. He does not recommend going of Xarelto due to his history of unprovoked DVT, bilateral PEs, ischemic cardiomyopathy, and poor ejection fraction. He suggests admitting the patient and having cardiology, ortho, and vascular examine him for IVC filter. 1414: Spoke with Dr. Weinstein- Hospitalist [facility]. He agreed to admit the patient. Orthopedics also agrees. Medical Decision 1205: The patient was evaluated in room B3. A complete history and physical exam was performed. 1210: EMR revised patient had evacuation of the left lower extremity hematoma by Dr. Lamb done on January 25, 2018. He had a 22x7x4 cm hematoma located between the gastrocnemius and soleus on the left calf. 1350: No signs stable. Ultrasound shows no DVT. CT of the lower extremity shows 7.7 x 3.4 x 10.5 cm hematoma in the medial head of the gastrocnemius. Spoke with Dr. Krista Mendez and made him aware of the hematoma on the CT scan. He said to speak with the doctor who is prescribing the Xarelto and ask if he can stop taking the medication. He said to discharge him with crutches/ walker and a split. He said to se him in office tomorrow or Monday. Spoke with his family and they said Dr. Wheat is the cardiology that prescribed Xarelto for a-fib. 1354: Spoke with Dr. Wheat. He does not recommend going of Xarelto due to his history of unprovoked DVT, bilateral PEs, ischemic cardiomyopathy, and poor ejection fraction. He suggests admitting the patient and having cardiology, ortho, and vascular examine him for IVC filter. 1414: Spoke with Dr. Holli Keen [facility]. He agreed to admit the patient. Orthopedics also agrees. Medication Reconcilliation Current Medication List: was personally reviewed by me Blood Pressure Screening Patient's blood pressure: Normal blood pressure Consults Time Called: 1349 Consulting Physician: Dr. Krista Mendez Returned Call: [phone]: Spoke with Dr. Krista Mendez and made him aware of the hematoma on the CT scan. He said to speak with the doctor who is prescribing the Xarelto and ask if he can stop taking the medication. He said to discharge him with crutches /walker and a split. He said to se him in office tomorrow or Monday. Spoke with his family and they said Dr. Wheat is the cardiology that prescribed Xarelto for a-fib. Additional Consults: Time Called: 1354 Consulted Physician: Dr. Wheat- Cardiology Returned Call: 1355 Additional Comments: 1354: Spoke with Dr. Wheat. He does not recommend going of Xarelto due to his history of unprovoked DVT, bilateral PE, ischemic cardiomyopathy, and poor ejection fraction. He suggests admitting the patient and having cardiology, ortho, and vascular examine him for IVC filter. Time Called: 1413 Consulted Physician: Dr. Holli Keen [facility] Returned Call: 1414 Additional Comments: 1414: Spoke with Dr. Holli Keen [facility]. He agreed to admit the patient. Impression Primary Impression: Hematoma of left lower extremity Scribe Attestation The scribe's documentation has been prepared under my direction and personally reviewed by me in its entirety. I confirm that the note above accurately reflects all work, treatment, procedures, and medical decision making performed by me. The chart was completed utilizing [employer] Speech voice recognition software. Grammatical errors, random word insertions, pronoun errors, and incomplete sentences are an occasional consequence of this system due to software limitations, ambient noise, and hardware issues. Any formal questions or concerns about the content, text, or information contained within the body of this dictation should be directly addressed to the physician for clarification. Departure Information Dispostion Being Evaluated By Hospitalist Kinga Hightower M.D. (PCP) Forms HOME CARE DOCUMENTATION FORM, IMPORTANT VISIT INFORMATION, WORK / SCHOOL INSTRUCTIONS Patient Instructions My [facility] Problem Qualifiers Primary Impression: Hematoma of left lower extremity Encounter type: initial encounter Qualified Codes: S80.12XA - Contusion of left lower leg, initial encounter
[2018-06-18 12:44] LABS: ISTAT CREATININE 1.3 mg/dl (0.6-1.3); ISTAT IONIZED CALCIUM 1.17 mmol/l (1.12-1.32); ISTAT POTASSIUM 4.6 mEq/L (3.3-5.0)
--- NOTE | 2018-06-18 13:02 | DIAGNOSTIC IMAGING REPORT ---
ULTRASOUND L VENOUS DOPP LOWER EXT UNILAT CLINICAL HISTORY: LLE popliteal pain and calf swelling hx of hematoma evacuation COMPARISON STUDY: December 2017 FINDINGS: Real-time and color flow Doppler imaging were performed. Flow was seen within the femoral, popliteal and calf veins with no intraluminal thrombus demonstrated. The saphenous vein is patent. IMPRESSION: No evidence of left lower extremity DVT Electronically signed by: Nasir Lyons M.D. 06/18/2018 1:01 PM Dictated Date/Time: 06/18/2018 1:00 PM
--- NOTE | 2018-06-18 13:40 | DIAGNOSTIC IMAGING REPORT ---
L LOWER EXTREMITY WITH HISTORY: 67 years-old Male r/o calf hematoma acute pain and swelling of the left lower extremity with possible calf hematoma. COMPARISON: CT of the left lower extremity 01/20/2018, duplex venous Doppler study of same day TECHNIQUE: Multiple axial CT images of the left lower extremity were obtained following the intravenous administration of 92 mL Optiray 320 IV contrast. Coronal and sagittal reformatted images were obtained from the axial data set and were submitted for review. A dose lowering technique was used consistent with the principals of AMIE. FINDINGS: There is mild muscular atrophy about the lower leg. Intramuscular hematoma of the medial head gastrocnemius measures 7.7 x 3.4 x 10.5 cm in AP, transverse and cranial, dimension is. Moderate subcutaneous edema is noted about the dorsal mid and lower leg. Perifascial edema is noted about the medial head gastrocnemius. Moderate mixed plaquing about the arterial vessels. Fluid is seen tracking along the semimembranosus tendon. This study is not tailored to assess seen from 6 tendons and ligaments. Tricompartmental osteoarthritis, at least moderate within the medial and patellofemoral compartments with joint space narrowing, subchondral sclerosis and marginal osteophytosis. There is no acute fracture or dislocation. Corticated bone fragments adjacent to the medial and lateral malleoli suggest remote fracture avulsion fractures. Subcortical cystic changes are noted about the midfoot. Trace knee joint effusion. IMPRESSION: 1. Intramuscular hematoma of the medial head gastrocnemius measures up to 7.7 cm in length. Moderate subcutaneous and associated perifascial edema is likely reactive. 2. No acute fracture or dislocation. 3. Peripheral arterial disease. 4. Tricompartmental osteoarthritis about the knee, moderate within the medial compartment. The above report was generated using voice recognition software. It may contain grammatical, syntax or spelling errors. Electronically signed by: Portillo Sapp M.D. 06/18/2018 1:39 PM Dictated Date/Time: 06/18/2018 1:26 PM
[2018-06-18] MEDS ORDERED: ONDANSETRON INJ 2 MG/ML 2 ML VIAL IV PRN (15:00)
[2018-06-18] MEDS ORDERED: ACETAMINOPHEN 325 MG TAB PO PRN (15:00)
[2018-06-18] MEDS ORDERED: SENNA 8.6 MG TAB PO PRN (15:00)
[2018-06-18] MEDS ORDERED: MAGNESIUM HYDROXIDE SUSP 30 ML UDC PO PRN (15:00)
--- NOTE | 2018-06-18 15:16 | History and Physical ---
History & Physical Date & Time of Service: Jun 18, 2018 at 15:01 Chief Complaint: Swollen,Discolored Left Leg From Former Hematoma Primary Care Physician: Kinga Diaz M.D. History of Present Illness Source: patient, family 67 y/o M c/o L LE pain and swelling. Pt states that he started having L LE pain and swelling in his calf on . It comes and goes without definite provoking factors. He is able to walk and bear weight without issue. His pain can start at rest as well. 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 The pain that returned starting was more intense than that pain. It was similar to recent hematoma that required surgical removal with Dr. Lamb late December. Pt states he feels otherwise well. Pt denies fever, SOB, chest pain, abd pain, n /v/c/d. ED spoke with Dr. Lamb who recommended d/c xarelto and f/u as outpt in his office tomorrow. Discussion with pt's edge molder, Dr. Webb with recs for IVC filter as d/c of xarelto would be risky in a pt with hx of DVT/PE, afib, and ischemic cardiomyopathy. Past Medical/Surgical History Hematoma requiring surgical evacuation 12/2017 Afib DVT/PE Ischemic cardiomyopathy, EF 25-30% sCHF Hyperlipidemia CKD III Peripheral neuropathy Vit B12 deficiency Vit D deficiency Hx of Agent [place] exposure Family History Family history was reviewed; no changes noted. Social History Smoking Status: Former Smoker (quit early ) Alcohol Use: none Drug Use: none, other Marital Status: Housing status: lives with significant other Occupational Status: retired Immunizations History of Influenza Vaccine: No History of Tetanus Vaccine?: No History of Pneumococcal: No History of Hepatitis B Vaccine: No Allergies Coded Allergies: Diphtheria Toxoid (Verified Allergy, Severe, CONVULSIONS, 06/18/18) Tetanus Toxoid (Verified Allergy, Severe, CONVULSIONS, 06/18/18) Pt states this was the old Tetanus with horse serum. Is able to take a new tetanus inj Home Medications Scheduled Aspirin (Aspirin 81), 81 MG PO QAM Atorvastatin (Lipitor), 50 MG PO QPM Cholecalciferol (Vitamin D3), 1 CAP PO NOON Cyanocobalamin (Vitamin B12), 1 TAB PO NOON Furosemide (Lasix), 1 TAB PO QAM Metoprolol Succinate (Toprol Xl), 50 MG PO QAM Rivaroxaban (Xarelto), 20 MG PO QPM Sacubitril-Valsartan (Entresto 49-51 mg), 1 TAB PO BID Sennosides (Senna), 1 TAB PO PRN Spironolactone (Aldactone), 12.5 MG PO QAM Review of Systems Pertinent positives and negatives reviewed in HPI--all others negative Physical Exam Vital Signs Date Time Temp Pulse Resp B/P (MAP) Pulse Ox O2 Delivery O2 Flow Rate FiO2 06/18/18 13:30 74 20 104/63 98 Room Air 06/18/18 11:54 36.3 90 18 117/70 95 Room Air General Appearance: WD/WN, no apparent distress Head: normocephalic, atraumatic Eyes: normal inspection, sclerae normal Respiratory/Chest: normal breath sounds, no respiratory distress Cardiovascular: regular rate, rhythm, normal peripheral pulses Abdomen/GI: non tender, soft Extremities/Musculoskelatal: no calf tenderness (R), + pertinent finding (L LE was wrapped by ED physician to thigh just prior to my exam, bandages are clean and dry) Neurologic/Psych: alert, normal mood/affect, oriented x 3 Skin: normal color (R LE), warm/dry Diagnostics Laboratory Results Results Past 24 Hours Test 06/18/18 12:31 Range/Units Bedside Hemoglobin 11.9 14.0-18.0 g/dl Bedside Hematocrit 35 42-52 % Bedside Sodium 140 135-144 mEq/L Bedside Potassium 4.6 3.3-5.0 mEq/L Bedside Chloride 101 101-112 mEq/L Bedside Total CO2 25 24-31 mEq/l Anion Gap 20.0 16-25 mmol/L Bedside Blood Urea Nitrogen 24 7-18 mg/dl Bedside Creatinine 1.3 0.6-1.3 mg/dl Bedside Glucose (other) 94 70-99 mg/dl Bedside Ionized Calcium (Aime) 1.17 1.12-1.32 mmol/l Diagnostic Radiology LE US: neg for DVT LE CT: 1. Intramuscular hematoma of the medial head gastrocnemius measures up to 7.7 cm in length. Moderate subcutaneous and associated perifascial edema is likely reactive. 2. No acute fracture or dislocation. 3. Peripheral arterial disease. 4. Tricompartmental osteoarthritis about the knee, moderate within the medial compartment. Impression Assessment and Plan 67 y/o M who was admitted on 06/18 with L LE hematoma L LE hematoma: Case d/w Dr. Lamb by ED physician--no plans for surgical evacuation at this time Recs for d/c xarelto, however this was felt to be a risky option by pt's edge molder Dr. Trejo Vasc surg c/s for possible IVC Holding further aspirin/xarelto CT LE noted LE US neg for DVT Afib/ischemic cardiomyopathy/hx PE/DVT: aspirin/xarelto Pt's second major hematoma on xarelto Cards c/s for further management Pt has been on aspirin 81mg for many years and no issues prior to starting xarelto, possibly aspirin 81mg vs 325mg for afib stroke risk given recurrent hematoma on xarelto? CHADS-VASC score is 4, making this less optimal but would give better protection that d/c of all anticoag Hold aspirin/xarelto for now for likely procedure sCHF: stable, continue diuretics as at home CKD III: cr is at baseline Other: Full code DVT proph as per procedures, SCDs to R LE AHA diet today, to NPO in AM for possible OR Resuscitation Status VTE Prophylaxis Will order VTE Prophylaxis: Yes Additional Copies To Kinga Diaz M.D.
[2018-06-18 15:25] VITALS: O2SAT 98
[2018-06-18 15:40] VITALS: BP 124/78; PULSE 79; TEMP 36.8; O2SAT 97
[2018-06-18 15:45] VITALS: Ht 185.4 cm; Wt 103.3 kg
--- NOTE | 2018-06-18 16:53 | Orthopedic Consultation ---
Orthopedic Consultation Date of Consultation: Jun 18, 2018. Attending Physician: Riley Peres D.O. Reason for Consultation: Left calf hematoma History of Present Illness Patient is a 67-year-old male who was admitted for left calf hematoma. He presented to the emergency room today at the recommendation of his family physician. According to his , he started having left calf pain and noticed bruising as of last week. Denies any known injury. He does take Xarelto for chronic A. fib. He is status post an I&D of a hematoma of his left calf area back on January 25, 2018. That resolved without difficulty. Due to his increased calf swelling he was recommended to come to the emergency room today. An ultrasound and CT scan of his left calf was completed and shows calf hematoma around the medial gastroc. Note Adonis recommended discharge from the emergency room with crutches and a splint. Also recommended stopping the Xarelto. 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 He was admitted by the hospitalist service. We were consulted for definitive care of the calf hematoma. He states that he really does not have any pain in his left calf. He has been able to ambulate without difficulty. He did have some pain up until yesterday but that has resolved. Past Medical/Surgical History Medical Problems: (1) Congestive heart failure Status: Acute (2) Congestive heart failure Status: Acute (3) Edema of left lower extremity Status: Acute (4) Hematoma of left lower extremity Status: Acute (5) Hematoma of left thigh Status: Acute Family History Diabetes mellitus FH: cancer FH: heart disease Gallbladder disease Hypertension Kidney stones Social History Smoking Status: Never Smoker Alcohol Use: none Drug Use: none, other Marital Status: Housing Status: lives with significant other Occupation Status: retired Allergies Coded Allergies: Diphtheria Toxoid (Verified Allergy, Severe, CONVULSIONS, 06/18/18) Tetanus Toxoid (Verified Allergy, Severe, CONVULSIONS, 06/18/18) Pt states this was the old Tetanus with horse serum. Is able to take a new tetanus inj Home Medications Scheduled Aspirin (Aspirin 81), 81 MG PO QAM Atorvastatin (Lipitor), 50 MG PO QPM Cholecalciferol (Vitamin D3), 1 CAP PO NOON Cyanocobalamin (Vitamin B12), 1 TAB PO NOON Furosemide (Lasix), 1 TAB PO QAM Metoprolol Succinate (Toprol Xl), 50 MG PO QAM Rivaroxaban (Xarelto), 20 MG PO QPM Sacubitril-Valsartan (Entresto 49-51 mg), 1 TAB PO BID Sennosides (Senna), 1 TAB PO PRN Spironolactone (Aldactone), 12.5 MG PO QAM Current Inpatient Medications Current Inpatient Medications Medications (Trade) Dose Ordered Sig/Sukhjinder Route Start Time Stop Time Status Last Admin Dose Admin Acetaminophen (Tylenol Tab) 650 mg Q4H PRN PO 06/18/18 15:00 07/18/18 14:59 Magnesium Hydroxide (Milk Of Magnesia Susp) 30 ml Q6H PRN PO 06/18/18 15:00 07/18/18 14:59 Ondansetron HCl (Zofran Inj) 4 mg Q6H PRN IV 06/18/18 15:00 07/18/18 14:59 Atorvastatin Calcium (Lipitor Tab) 50 mg QPM PO 06/18/18 21:00 07/18/18 20:59 Furosemide (Lasix Tab) 20 mg QAM PO 06/19/18 09:00 07/19/18 08:59 Metoprolol Succinate (Toprol Xl Tab) 50 mg QAM PO 06/19/18 09:00 07/19/18 08:59 Sacubitril/ Valsartan (Entresto 49-51 Mg) 1 tab BID PO 06/18/18 21:00 07/18/18 20:59 Spironolactone (Aldactone Tab) 12.5 mg QAM PO 06/19/18 09:00 07/19/18 08:59 Cyanocobalamin (Vitamin B-12 Tab) 1,000 mcg Q24H PO 06/19/18 12:00 07/19/18 11:59 Senna (Senokot Tab) 8.6 mg DAILY PRN PO 06/18/18 15:00 07/18/18 14:59 Cholecalciferol (Vitamin D Tab) 2,000 inter.unit Q24H PO 06/19/18 12:00 07/19/18 11:59 Review of Systems Constitutional: No fever, No chills, No sweats, No weight loss Respiratory: No cough, No sputum, No shortness of breath Cardiovascular: + edema (Left lower extremity), No chest pain, No orthopnea Abdomen: No pain, No nausea, No vomiting, No diarrhea, No constipation Musculoskeletal: + muscle pain (Left calf), + swelling, + calf pain Genitourinary - Male: No hematuria, No dysuria Neurologic: + numbness/tingling (Chronic peripheral neuropathy), No memory loss Hematologic / Lymphatic: + abnormal bleeding/bruising (On Xarelto), No clotting problems Integumentary: + problem reported (Ecchymosis of his left calf), No rash, No itch Physical Exam Date Time Temp Pulse Resp B/P (MAP) Pulse Ox O2 Delivery O2 Flow Rate FiO2 06/18/18 15:45 Room Air 06/18/18 15:30 75 16 112/65 98 06/18/18 15:25 75 16 112/65 98 Room Air 06/18/18 13:30 74 20 104/63 98 Room Air 06/18/18 11:54 36.3 90 18 117/70 95 Room Air General Appearance: WD/WN, no apparent distress Head: normocephalic, atraumatic Extremities/Musculoskelatal: normal capillary refill, + calf tenderness (With palpation), + pedal edema (1+), + pertinent finding (Exam of left calf: Previous incision is healed nicely. He has mild warmth of his left calf. Is mildly tender with palpation. There is a hard palpable hematoma left proximal calf. Mainly on the medial aspect. Tolerates full ankle range of motion with mild discomfort his left calf. Strength 5/5. Full range of motion of his left knee without effusion. No pain with palpation of the left popliteal fossa. Mild warmth with palpation. Skin intact.) Neurologic/Psych: no motor/sensory deficits, alert, normal mood/affect, oriented x 3 Skin: warm/dry, + pertinent finding (Ecchymosis left calf) Laboratory Results Last 24 Hours Test 06/18/18 12:31 Bedside Hemoglobin 11.9 g/dl Bedside Hematocrit 35 % Bedside Sodium 140 mEq/L Bedside Potassium 4.6 mEq/L Bedside Chloride 101 mEq/L Bedside Total CO2 25 mEq/l Anion Gap 20.0 mmol/L Bedside Blood Urea Nitrogen 24 mg/dl Bedside Creatinine 1.3 mg/dl Bedside Glucose (other) 94 mg/dl Bedside Ionized Calcium (Aime) 1.17 mmol/l Assessment & Plan Assessment: Left calf hematoma Plan: Recommended ice to left calf, elevation of left lower extremity above heart to relieve swelling. He needs to be out of bed with crutches or walker to assist with ambulation. Continue the splint until seen and evaluated by Dr. Lamb. Patient states that he does not have much pain with ambulation but recommended the splint at this time. May be out of bed as tolerated, weight- bear as tolerated left lower extremity. Will keep n.p.o. after midnight. Surgical plan will be decided after seen and evaluated by Dr. Lamb. Continue recommendations by cardiology. Patient understands and agrees with the plan and will await Dr. Lamb's assessment.
[2018-06-18] MEDS: SACUBITRIL-VALSARTAN 49-51 MG TAB PO SCH (20:46)
[2018-06-18] MEDS ORDERED: ATORVASTATIN 10 MG TAB PO SCH (21:00)
[2018-06-18 23:40] VITALS: BP 119/78; PULSE 74; TEMP 36.9; O2SAT 98
[2018-06-19 05:44] LABS: HEMATOCRIT 32.2 % (42-52); HEMOGLOBIN 10.4 g/dL (14.0-18.0)
[2018-06-19 07:11] VITALS: BP 115/73; PULSE 73; TEMP 36.6; O2SAT 96
--- NOTE | 2018-06-19 08:18 | Surgery Consultation ---
Consultation Date of Service Jun 19, 2018. Chief Complaint Hx DVT, possible IVC filter History of Present Illness The patient is a 67 year old male with hx of ischemic cardiomyopathy, a fib, ICD insertion, DVT, HTN, CHF, admitted d/t L calf hematoma and need to stop xarelto, seen in consultation today for possible IVC filter insertion d/t hx of DVT. Pt states he had a DVT in LLE in 2015 and has been on xarelto since that time. Is active and was doing well until December 2017, when he developed a L calf hematoma which was evacuated surgically by Dr Lamb. Xarelto was interrupted at that time, but restarted. Pt admits pain in LLE, but is improved since stopping xarelto yesterday and admission to [facility]. Denies MARSHALL, fever, chills, chest pain, SOB, abd pain, N/V, rest pain, claudication, other complaints. Pt denies any other hx of DVT. Imaging demonstrates DVT in LLE. Historically, pt had a small DVT in one of 2 paired L popliteal V in 2015. A CTA done at that time was negative for PE. Vitals Vital Signs Past 12 Hours Date Time Temp Pulse Resp B/P (MAP) Pulse Ox O2 Delivery O2 Flow Rate FiO2 06/19/18 07:11 36.6 73 16 115/73 (87) 96 Room Air 06/18/18 23:40 36.9 74 16 119/78 (92) 98 Room Air 06/18/18 23:38 Room Air Allergies Coded Allergies: Diphtheria Toxoid (Verified Allergy, Severe, CONVULSIONS, 06/18/18) Tetanus Toxoid (Verified Allergy, Severe, CONVULSIONS, 06/18/18) Pt states this was the old Tetanus with horse serum. Is able to take a new tetanus inj Home Medications Scheduled Aspirin (Aspirin 81), 81 MG PO QAM Atorvastatin (Lipitor), 50 MG PO QPM Cholecalciferol (Vitamin D3), 1 CAP PO NOON Cyanocobalamin (Vitamin B12), 1 TAB PO NOON Furosemide (Lasix), 1 TAB PO QAM Metoprolol Succinate (Toprol Xl), 50 MG PO QAM Rivaroxaban (Xarelto), 20 MG PO QPM Sacubitril-Valsartan (Entresto 49-51 mg), 1 TAB PO BID Sennosides (Senna), 1 TAB PO PRN Spironolactone (Aldactone), 12.5 MG PO QAM Problem List Medical Problems: (1) B12 deficiency anemia (2) CAD (coronary artery disease) (3) CKD (chronic kidney disease) stage 3, GFR 30-59 ml/min (4) Constipation (5) Dyslipidemia (6) Heart failure (7) Hematoma (8) Hematoma of left lower extremity (9) NICM (nonischemic cardiomyopathy) (10) Paroxysmal atrial fibrillation (11) Pneumonia (12) Pulmonary embolism (13) Pulmonary nodule (14) SOB (shortness of breath) Surgical Problems: (1) Postoperative state (2) S/P appendectomy (3) S/P tonsillectomy Surgical / Medical History Hx Cardiac Surgery: No Hx Abdominal Surgery: Yes (appdendectomy, tonsillectomy) Hx Cancer Surgery: No Hx Thoracic Surgery: No Hx Orthopedic: No (carpal tunnel both hands, L shoulder) Hx Urinary Tract Surgery: No HX Other Surgery: No (hematoma removal LLE December) Past Medical/Surgical History: CHF, Heart Disease, Hypertension Family History Diabetes mellitus FH: cancer FH: heart disease Gallbladder disease Hypertension Kidney stones Social History Smoking Status: Never Smoker Hx Tobacco Use In Past Year?: No (SMOKED 1 PPD X 40 YRS-QUIT 2006) Hx Alcohol Use - Type & Amnt: No Hx Substance Use -Type & Amnt: No Review of Systems Constitutional: No chills, No fever, No malaise Skin: + change in color Eyes: No visual changes ENMT: No sore throat Respiratory: No cough, No BALDERAS, No short of breath Cardiovascular: + edema, No chest pain, No palpitations, No syncope, No intermittent claudication Gastrointestinal: No abdominal pain, No nausea, No vomiting Neurologic: No dizziness, No lethargy, No numbness, No tingling Physical Exam Constitutional: General Apperance: heathly-appearing, well-nourished, well-developed Level of Distress: NAD Psychiatric: Mental Status: active & alert, normal mood, normal affect Orientation: oriented except where noted, to time, to place, to person Memory: recent memory normal, remote memory normal Head: normocephalic, atraumatic Eyes: EOM: EOMI ENMT: normal ENT inspection, hearing grossly normal Neck: supple, trachea midline Lungs: Respiratory effort: no dyspnea Auscultation: no rales/crackles, decreased breath sounds Cardiovascular: Apical Impulse: not displaced Heart Auscultation: no rubs, no gallops, pertinent finding (irregular) Peripheral Pulses: Pulses: full and equal, in all extremities except if noted Bruits: none appreciated Carotid Pulse: normal on the left, normal on the right Brachial Pulses: normal on the left, normal on the right Radial Pulse: normal on the left, normal on the right Femoral Pulse: normal on the left, normal on the right Posterior Tibialis Pulse: decreased on the left, decreased on the right Dorsalis Pedis Pulse: decreased on the left, decreased on the right Abdomen: Bowel Sounds: normal Inspection & Palpation: soft, non-distended, no tenderness, guarding & rebound Musculoskeletal: normal strength (5/5 throughout), normal tone Extremities: Upper Right: no cyanosis, no edema, no varicosities Upper Left: no cyanosis, no edema, no varicosities Lower Right: no cyanosis, no varicosities, no palpable cord, edema Lower Left: no cyanosis, no varicosities, edema, pertinent finding ( ecchymotic, tender) Neurologic: Cranial Nerves: grossly intact Sensation: grossly intact Assessment and Plan ASSESSMENT and PLAN: hx LLE DVT 2016 L calf hematoma Pt discussed with Dr Nelson, does not recommend IVC filter insertion at this time. Most recent DVT was in 2016 and was provoked by illness(pneumonia) at that time. AC no longer required for his LLE DVT, however, recs regarding AC for a fib should be addressed by cardiology. Pt and aware. Please call if needed.
[2018-06-19] MEDS ORDERED: SPIRONOLACTONE 25 MG TAB PO SCH (09:00)
[2018-06-19] MEDS ORDERED: FUROSEMIDE 20 MG TAB PO SCH (09:00)
[2018-06-19] MEDS ORDERED: METOPROLOL SUCC 50MG EXT REL TAB PO SCH (09:00)
--- NOTE | 2018-06-19 09:09 | Clinical Documentation Query ---
CLINICAL DOCUMENTATION QUERY 67 yo male admitted with left lower extremity hematoma. Patient is documented as having "sCHF". Echo from 08/2016 showed EF = 25-30% and severely reduced left ventricular systolic function. Patient takes Lasix 20mg PO daily. In your clinical opinion is this patient being managed for: ( x ) Chronic systolic CHF ( ) Not Agree ( ) Other explanation of clinical findings (No explanation is considered a No Response) ( ) Unable to determine ( ) Need to Discuss (Phone CDS or qliq) (No discussion is considered a No Response) The medical record reflects the following clinical findings, treatment, and risk factors. Clinical Indicators: As above Treatment: As above, Cardiology consult Risk Factors: CAD, Afib, CKD Please clarify and document your clinical opinion in the progress notes and discharge summary. Terms such as "probable", "suspected", "likely", "questionable", "possible", or "still to be ruled out" are acceptable. IF IN AGREEMENT, YOU MUST DOCUMENT ABOVE DIAGNOSTIC STATEMENT IN DAILY PROGRESS NOTES AND DISCHARGE SUMMARY. This document is not part of the patient's record. Thank You, Jenn Giang RN, MSN [phone]
[2018-06-19] MEDS: SACUBITRIL-VALSARTAN 49-51 MG TAB PO SCH (09:29)
[2018-06-19 09:51] VITALS: BP 97/64
--- NOTE | 2018-06-19 10:36 | Cardiology Consultation ---
Cardiology Consultation Date of Consultation: Jun 19, 2018 Requesting Physician: Js Attending Log Loader Helper: Petey (Ashok Gilmore PA-C) History of Present Illness Patient is a complex 67-year-old male who was admitted to [facility] on August 05, 2016 with new onset acute decompensated systolic heart failure, newly observed dilated nonischemic cardiomyopathy with ejection fraction 20-25% and possible community-acquired pneumonia. August 08, 2016 diagnostic cardiac catheterization at [facility] by Dr. Trejo revealed moderate nonobstructive coronary artery disease. CT scan performed on August 05, 2016 showed no evidence of acute pulmonary embolism. He was treated with Lovenox for DVT prophylaxis throughout the July 2016 hospitalization. The community-acquired right middle lobe and right lower lobe pneumonia was treated with a course of Levaquin. He was afebrile with a normal white blood cell count throughout the entire admission. Patient discharged from that hospitalization on August 09, 2016, returning to the hospital on August 30, 2016 due to acute dyspnea which began 1 day prior to presentation. Venous duplex at that time revealed nonocclusive deep venous thrombosis within 1 of the 2 paired left popliteal veins. Chest CT performed on August 31, 2016 revealed extensive bilateral pulmonary emboli with peripheral basilar airspace opacities favoring pulmonary infarcts. At that time the patient was treated with heparin then Xarelto. In October 2016 he was referred to electrophysiology and underwent dual-chamber pacemaker defibrillator implantation at [facility] on November 08, 2016 without complication. In February 2017 device interrogation revealed new onset atrial fibrillation with a controlled ventricular response for which he eventually underwent direct current cardioversion successfully. In November or December 2017 he injured his leg getting out of his truck and ultimately underwent evacuation of a left leg hematoma on January 25, [address] Lamb. On May 28, 2018 he describes having a flare up, pain and swelling of the left lower extremity. He notes taking Tylenol with improvement. He eventually was evaluated by Dr. Diaz however the pain and swelling resolved by the time he was evaluated. It was felt that he probably had a Bakers cyst. Last he once again noted pain and swelling of the left calf and called his PCP's Office who referred him to the ER for further evaluation. Venous duplex yesterday showed no evidence of DVT in the left lower extremity. Left lower extremity CT scan revealed intramuscular hematoma of the medial head gastrocnemius muscle measuring up to 7.7 cm with moderate subcutaneous and associated arcelia-fascial edema. Cardiology has been consulted to make recommendations regarding anticoagulation management. The patient does not recall suffering any injury to the left lower extremity. He denies recent use of NSAIDs or steroids. He has not had any prolonged travel , periods of immobility, recent surgery. He denies chest pain, palpitations, ICD discharge, new or worsening shortness of breath, orthopnea, PND, right lower extremity peripheral edema, abdominal bloating, scrotal edema, orthopnea, PND, lightheadedness, dizziness, near-syncope, or true syncope. No recent colds or illnesses. No fevers or chills. No change in appetite. No change in bowel habits. (Ashok Gilmore PA-C) Past Medical/Surgical History Problem List: Nonischemic cardiomyopathy diagnosed in August 2016, EF 20-25% Nonsustained ventricular tachycardia Sinus bradycardia Status post November 08, 2016 dual-chamber pacemaker defibrillator implantation Paroxysmal atrial fibrillation/flutter status post February 2017 direct current cardioversion Hypertension Dyslipidemia Frequent premature ventricular complexes Stage III chronic kidney disease History of tobacco abuse, reformed History of alcohol abuse, reformed History of herpes zoster without postherpetic neuralgia B12 deficiency with associated peripheral neuropathy Erectile dysfunction Left lower lobe pulmonary nodule Left lower extremity hematoma requiring surgical evacuation in December 2017 Vitamin D deficiency [place] with history of agent orange exposure Appendectomy Tonsillectomy (Ashok Gilmore PA-C) Family History Father with lymphoma at age 70. Mother at age 94, Alzheimer's disease. Older sister without cardiac issues. (Ashok Gilmore PA-C) Diabetes mellitus FH: cancer FH: heart disease Gallbladder disease Hypertension Kidney stones (Campos Angelo D.O.) Social History Reformed smoker, quit in 2005 after smoking 1 to 1 1/4 packs per day 45 years. Alcohol: One case per week until 2005, reformed. No illegal drug use. 42 years. No children. 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 [place] with agent orange exposure. (Ashok Gilmore PA-C) Review Of Systems Complete review of system is otherwise as stated above, negative, noncontributory. (Ashok Gilmore PA-C) Allergies Coded Allergies: Diphtheria Toxoid (Verified Allergy, Severe, CONVULSIONS, 06/18/18) Tetanus Toxoid (Verified Allergy, Severe, CONVULSIONS, 06/18/18) Pt states this was the old Tetanus with horse serum. Is able to take a new tetanus inj Medications Reported Home Medications Medications Dose Route/Sig Max Daily Dose Days Date Category Dose Instructions Toprol Xl (Metoprolol Succinate) 50 Mg Tab 50 Mg PO QAM 01/24/18 Reported Lipitor (Atorvastatin Calcium) 40 Mg Tab 50 Mg PO QPM 01/20/18 Reported Xarelto (Rivaroxaban) 20 Mg Tab 20 Mg PO QPM 01/20/18 Reported PUT ON HOLD SINCE 01/20/18 Aldactone (Spironolactone) 25 Mg Tab 12.5 Mg PO QAM 01/09/18 Reported Vitamin D3 (Cholecalciferol) 2,000 Unit Cap 1 Cap PO NOON 30 03/23/17 Reported Senna (Sennosides) 8.6 Mg Cap 1 Tab PO PRN 03/23/17 Reported Lasix (Furosemide) 20 Mg Tab 1 Tab PO QAM 90 03/23/17 Reported Entresto 49-51 mg (Sacubitril-Valsartan) 1 Tab Tab 1 Tab PO BID 03/23/17 Reported Aspirin 81 (Aspirin) 81 Mg Tab 81 Mg PO QAM 05/21/14 Reported Vitamin B12 (Cyanocobalamin) 1,000 Mcg Tab 1 Tab PO NOON 05/21/14 Reported (Ashok Gilmore PA-C) Physical Exam Vital Signs (Last 8hrs): Last 8 Hrs Date Time Temp Pulse Resp B/P (MAP) Pulse Ox O2 Delivery O2 Flow Rate FiO2 06/19/18 07:18 Room Air 06/19/18 07:11 36.6 73 16 115/73 (87) 96 Room Air General: Alert and Oriented x3. NAD. HEENT: Normocephalic Atraumatic. PER, EOMI, conjunctiva and sclera clear Neck: Supple. No carotid bruits noted. No JVD. No HJD. Respiratory: Decreased. Diminished. Clear to auscultation bilaterally. Cardiovascular: RRR. No murmur. No rubs. No gallops. Abdomen: +BS. Soft. Nontender. Extremities: DAE wrap to the left lower extremity; this was not removed. The right lower extremity is without clubbing, cyanosis or edema. Posterior tibial pulse is 2/4 on the right. Neuro: No focal deficits. Psychiatric: Normal affect. (Ashok Gilmore PA-C) Data Last 24 Hours Test 06/18/18 12:31 06/19/18 05:24 Bedside Hemoglobin 11.9 g/dl Bedside Hematocrit 35 % Bedside Sodium 140 mEq/L Bedside Potassium 4.6 mEq/L Bedside Chloride 101 mEq/L Bedside Total CO2 25 mEq/l Anion Gap 20.0 mmol/L Bedside Blood Urea Nitrogen 24 mg/dl Bedside Creatinine 1.3 mg/dl Bedside Glucose (other) 94 mg/dl Bedside Ionized Calcium (Aime) 1.17 mmol/l Hemoglobin 10.4 g/dL Hematocrit 32.2 % August 31, 2017 TTE Interpretation Summary (as per Dr. Cruz): The left ventricular cavity size is moderately enlarged. The qualitative LV ejection fraction is 20-24% (severely reduced). The right ventricular systolic function is normal as assessed by tricuspid annular plane systolic excursion (TAPSE) ( normal >1.7 cm). The left atrium is normal sized (< 35 ml/m^2). The right atrial size is normal. No significant valvular disease is present. EKG reveals atrial paced rhythm Telemetry: Nonmonitored bed Device interrogation: Pending Imaging: See above. (Ashok Gilmore PA-C) Assessment & Plan Admission with left lower extremity pain and swelling, possible spontaneous ( not the best historian, ? injury) 7.7 cm intramuscular hematoma of the medial head of the gastrocnemius muscle with moderate subcutaneous and associated perifascial edema. Mr. Jaquez has a history of DVT and extensive bilateral pulmonary emboli in August 2016. This appears to have been provoked, however it is difficult to say definitively and thus consideration should be made for a hypercoagulatable workup/further evaluation if not already performed. Mr. Jaquez also has a history of paroxysmal atrial fibrillation with a [id number] Score of 4 points which gives him a moderate high stroke risk. Given the need for anticoagulation and the issues with hematoma it may be best to discontinue antiplatelet therapy with ASA which was prescribed due to his history of nonobstructive coronary artery disease. RECOMMENDATIONS: Electrocardiogram (done) Pacemaker defibrillator interrogation to assess for paroxysmal atrial fibrillation (pending) Discontinue ASA 81 mg/day Hold anticoagulation therapy transiently given the left lower extremity hematoma , resuming as soon as determined to be safe. Outpatient follow-up with Dr. Ja Trejo (Ashok Gilmore PA-C) Cardiology attending: Pt seen and examined, agree with findings and assessment as per Ashok Polo. Pt presents with lower extremity hematoma but carries a history of significant pulmonary emboli/infarct along with PAF. Per ortho consultation, ok to resume anticoagulation at any time. Recommend Xarelto and aspirin be restarted today, could consider stopping asa in the future. My office will call patient to clarify medical regimen. Encourage patient to follow up with ortho as outpatient on 06/22. (Campos Angelo, Blanca.O.)
[2018-06-19] MEDS ORDERED: CHOLECALCIFEROL 1000 INTER.UNIT TAB PO SCH ×2 (12:00)
[2018-06-19] MEDS ORDERED: CYANOCOBALAMIN 500 MCG TAB (VIT B-12) PO SCH (12:00)
--- NOTE | 2018-06-19 15:00 | Consultant Recommendations ---
Paint Roller Assembler Recommendations Date of Service Jun 19, 2018. Paint Roller Assembler Recommendations Ice/heat to left leg as needed for pain/swelling. Elevate left leg above heart to relieve pain/swelling. Use walker or crutch in opposite arm to assist with ambulation. Weight bear as tolerated left lower extremity Wear Arnaldo stocking on during the day, off at night Ankle pumps, knee and hip range of motion as tolerated Follow up with Dr. Lamb on Monday06/22/18 at 11:15 a.m. Please call with any questions, concerns or need to reschedule appointment.
--- NOTE | 2018-06-19 15:31 | Discharge Instructions ---
Discharge Instructions Date of Service Jun 19, 2018. Admission Reason for Admission: Swollen,Discolored Left Leg From Former Hematoma Discharge Discharge Diagnosis / Problem: Left calf hematoma, on Xarelto Discharge Goals Goal(s): Decrease discomfort, Improve function Activity Recommendations Activity Limitations: resume your previous activity . Instructions / Follow-Up Instructions / Follow-Up Medications: - XARELTO: hold until told to resume by Dr. Lamb - ASPIRIN: hold indefinitely Left leg hematoma, on Xarelto for afib, history of left leg DVT and PE in 2016 see recommendations for treatment of the left leg from orthopedics below hold Xarelto and aspirin until told to resume by physician evaluated by vascular surgery for IVC filter, there is no indication because you do no have active DVT Atrial fibrillation, chronic ischemic cardiomyopathy continue all prior cardiac medications with exception of Xarelto and aspirin follow up closely with Dr. Trejo, call to make appointment next week Current Hospital Diet Patient's current hospital diet: AHA Diet (Heart Healthy) Discharge Diet Recommended Diet: AHA Diet (Heart Healthy) Pending Studies Studies pending at discharge: no Medical Emergencies . Who to Call and When: Medical Emergencies: If at any time you feel your situation is an emergency, please call 911 immediately. . Non-Emergent Contact Non-Emergency issues call your: Glass Worker, Surgeon (Dr. Lamb) Call Non-Emergent contact if: you have a fever, your pain is worsening, you have any medication questions . . "Provider Documentation" section prepared by Riley Peres. . Beeswax Bleacher Recommendations Beeswax Bleacher Recommendations: Ice/heat to left leg as needed for pain/swelling. Elevate left leg above heart to relieve pain/swelling. Use walker or crutch in opposite arm to assist with ambulation. Weight bear as tolerated left lower extremity Wear Arnaldo stocking on during the day, off at night Ankle pumps, knee and hip range of motion as tolerated Follow up with Dr. Lamb on Monday06/22/18 at 11:15 a.m. Please call with any questions, concerns or need to reschedule appointment. [place] Drug Monitoring Program Search Results: no issues identified
[2018-06-19 15:54] VITALS: BP 97/64; PULSE 73; TEMP 36.6; O2SAT 96
--- NOTE | 2018-06-19 16:16 | ORTHOPEDIC CONSULTATION ---
DATE OF CONSULTATION: 06/19/2018 Patient is seen in conjunction with Kinga Hunter. For further details, please refer to her dictation. She and I saw and evaluated this patient together, and I am in agreement with the plan. Things started back on 05/29/2018 with some calf discomfort that got worse this past with symptoms of discomfort and swelling. He was seen in the ER and diagnosed with a hematoma of the left calf. He had a similar problem back in December, which was treated with I and D. He is on Xarelto and aspirin. He has been admitted to the hospital. He does not recall any injury. He is afebrile. His vital signs are stable. Labs are noted. He is mildly anemic. Ultrasound shows no blood clot. He has a history of DVT and PE. He has a CT scan showing a hematoma, intramuscular, left medial calf, 7 x 3 x 10. This is smaller than what he had before. On exam, he has numbness in both feet, which is chronic, and the sensation is at its baseline. He has palpable pedal pulses. Knee motion is approximately 0/10/100. He can do a leg raise. The knee is not tender nor is it swollen. He does have swelling of the calf with induration and increased warmth. There is some yellowing of the skin, perhaps some slight blackish bruising. He has normal strength in the ankle plantar flexion and dorsiflexion. The Achilles is intact. There is mild tenderness over the medial head of the gastroc. There is 1+ edema of the calf. The shinbone is not tender. IMPRESSION: A recurrent intramuscular hematoma of the left calf. PLAN: Findings are discussed. I do not think that surgery is necessary at this point based upon his symptoms and the size of the lesion. He can go ahead and eat. I would recommend that we observe this, and he will follow up with me as an outpatient on Monday. His anticoagulation can be resumed at any time. I do wonder if the medication plays a role in him having now what appears to be a second somewhat spontaneous bleed in the left calf. Surgery is not out of the question should things worsen. He is to elevate, wear a stocking, do some simple range of motion, and generally rest. Ambulate with a crutch, which he has at home. If there are any problems with severe pain, swelling, tingling, numbness, or any other problems or questions, he is to call my office or go to the emergency room.
--- NOTE | 2018-06-20 09:07 | Discharge Summary ---
Discharge Summary Date of Service Jun 19, 2018. Discharge Summary Admission Date: Jun 18, 2018 at 15:00 Discharge Date: Jun 19, 2018 Discharge Disposition: Home Principal Diagnosis: Left calf hematoma Problems/Secondary Diagnoses: Atrial fibrillation on Xarelto h/o CAD Ischemic cardiomyopathy, chronic systolic heart failure h/o left leg DVT and bilateral PE in 2016 Immunizations: Have You Had Influenza Vaccine: No History of Tetanus Vaccine?: No History of Pneumococcal: No History of Hepatitis B Vaccine: No Procedures: none Consultations: Orthopedic surgery Cardiology Vascular surgery Medication Reconciliation Continued Medications: Atorvastatin (Lipitor) 40 Mg Tab 50 MG PO QPM Cholecalciferol (Vitamin D3) 2,000 Unit Cap 1 CAP PO NOON for 30 Days, CAP 3 Refills Cyanocobalamin (Vitamin B12) 1,000 Mcg Tab 1 TAB PO NOON Furosemide (Lasix) 20 Mg Tab 1 TAB PO QAM for 90 Days, #90 TAB 1 Refill Metoprolol Succinate (Toprol Xl) 50 Mg Tab 50 MG PO QAM, #30 TAB Sacubitril-Valsartan (Entresto 49-51 mg) 1 Tab Tab 1 TAB PO BID Sennosides (Senna) 8.6 Mg Cap 1 TAB PO PRN Spironolactone (Aldactone) 25 Mg Tab 12.5 MG PO QAM, TAB Discontinued Medications: Aspirin (Aspirin 81) 81 Mg Tab 81 MG PO QAM Rivaroxaban (Xarelto) 20 Mg Tab 20 MG PO QPM, TAB PUT ON HOLD SINCE 01/20/18 Discharge Exam Patient feeling well, no pain in left calf, wrapped in DAE wrap. Discussed with vascular surgery, cardiology, orthopedic surgery. No plans for any surgery. No indication for IVC filter per vascular since he does not have DVT, the DVT and PE in the past was deemed provoked by hospitalization. Cardiology recommends holding Xarelto and aspirin for now, close follow up with Dr. Trejo. Patient anxious to go home. Review of Systems: Constitutional: No fever, No chills, No sweats, No weight loss, No weakness , No fatigue, No problem reported Eyes: No worsening of vision, No eye pain, No redness, No discharge, No diplopia, No problem reported ENT: No hearing loss, No unusual epistaxis, No nasal symptoms, No sore throat, No tinnitus, No dental problems, No trouble swallowing, No problem reported Respiratory: No cough, No sputum, No wheezing, No shortness of breath, No dyspnea on exertion, No dyspnea at rest, No hemoptysis, No problem reported Cardiovascular: No chest pain, No orthopnea, No PND, No edema, No claudication, No palpitations, No problem reported Abdomen: No pain, No nausea, No vomiting, No diarrhea, No constipation, No GI bleeding, No problem reported Musculoskeletal: + muscle pain (mild left calf pain), No joint pain, No swelling, No calf pain, No problem reported Genitourinary - Male: No hematuria, No dysuria, No urinary frequency, No urinary urgency Neurologic: No memory loss, No paralysis, No weakness, No numbness/tingling , No vertigo, No balance problems, No problem reported Psychiatric: No depression symptoms, No anhedonism, No anxiety, No insomnia , No substance abuse, No problem reported Endocrine: No fatigue, No excessive thirst, No excessive urination, No problem reported Hematologic / Lymphatic: No abnormal bleeding/bruising, No clotting problems , No swollen lymph nodes, No night sweats, No problem reported Integumentary: No rash, No itch, No new/changing skin lesions, No color change, No bleeding, No problem reported Physical Exam: General Appearance: WD/WN, no apparent distress Eyes: normal inspection, EOMI, sclerae normal ENT: normal ENT inspection, hearing grossly normal, pharynx normal Neck: supple, no adenopathy, no JVD, trachea midline Respiratory/Chest: chest non-tender, lungs clear, normal breath sounds, no respiratory distress, no accessory muscle use Cardiovascular: regular rate, rhythm, no edema, no gallop, no JVD, no murmur , normal peripheral pulses Abdomen / GI: normal bowel sounds, non tender, soft, no organomegaly Extremities: normal inspection, no calf tenderness, normal capillary refill , no pedal edema, normal range of motion, pelvis stable Neurologic/Psychiatric: pattern drafter II-XII nml as tested, no motor/sensory deficits , alert, normal mood/affect, normal reflexes, oriented x 3 Skin: normal color, warm/dry, no rash Hospital Course 67 y/o M who was admitted on 06/18 with L LE hematoma L LE hematoma: no plans for surgical evacuation by orthopedic surgery recommend ice, elevation, can ambulate as tolerated, Wear Arnaldo stocking on during the day, off at night, ankle pumps, knee and hip range of motion as tolerated follow up with Dr. Lamb on 06/22 no need for pain medication per patient, he is comfortable HOLD Xarelto and aspirin for time being as hematoma resolves CT LE - 7.7cm hematoma in gastrocnemius muscle on left, some associated swelling/edema, no fractures LE US neg for DVT on the left Afib/ischemic cardiomyopathy, chronic systolic heart failure CHADS-VASC score is 4, but need to hold anticoagulation short term due to hematoma continue Entresto, Lasix, Toprol, Aldactone examines euvolemic on day of discharge close follow up with Dr. Trejo pacer interrogated while here h/o DVT on left and bilateral PE in August 2016 at that time her VTE was felt to be provoked due to hospitalization in July 2016 no evidence of DVT in left leg at this time evaluated by Vascular surgery for IVC filter given the fact that Xarelto will be held currently no indication for filter since he does not have active DVT CKD III: cr is at baseline Total Time Spent: Greater than 30 minutes This includes examination of the patient, discharge planning, medication reconciliation, and communication with other providers. Discharge Instructions Please refer to the electronic Patient Visit Report (Discharge Instructions) for additional information. Follow-Up Dr. Lamb on 06/22 Dr. Trejo next week Additional Copies To Kinga Diaz M.D.; Ja Trejo DO; Aiden Lamb M.D.
== END 2018-06-19 16:15 | disposition home or self-care (01) | DRG 605 ==
LOC: C.EDB 11:53 → C.MSN 15:00 → EDBEDREQ 15:07 → ENRESERV 15:14
PROVIDERS: ADMIT Family Medicine; ATTEND Internal Medicine
DX: S80.12XA Contusion of left lower leg, initial encounter (principal); I50.22 Chronic systolic (congestive) heart failure; D51.3 Other dietary vitamin B12 deficiency anemia; I25.5 Ischemic cardiomyopathy; I25.10 Atherosclerotic heart disease of native coronary artery without angina pectoris; N18.3 Chronic kidney disease, stage 3 (moderate); E78.5 Hyperlipidemia, unspecified; I48.0 Paroxysmal atrial fibrillation; Z86.711 Personal history of pulmonary embolism; Z83.3 Family history of diabetes mellitus; Z82.49 Family history of ischemic heart disease and other diseases of the circulatory system; G62.9 Polyneuropathy, unspecified; Z88.7 Allergy status to serum and vaccine; Z98.890 Other specified postprocedural states; Z77.29 Contact with and (suspected) exposure to other hazardous substances; Z65.5 Exposure to disaster, war and other hostilities; Z79.01 Long term (current) use of anticoagulants; Z86.718 Personal history of other venous thrombosis and embolism; I48.2 Chronic atrial fibrillation; X58.XXXA Exposure to other specified factors, initial encounter; Y92.89 Other specified places as the place of occurrence of the external cause

== ENCOUNTER 2019-11-20 14:45 | Inpatient (IN) ==
[2019-11-20] MEDS ORDERED: SODIUM CHLORIDE 0.9% 500 ML IV ONE (15:33)
[2019-11-20] MEDS ORDERED: SODIUM CHLORIDE 0.9% 250 ML IV PRN (15:33)
--- NOTE | 2019-11-20 15:42 | Emergency Department Note ---
Entered by Bebeto Buchanan acting as a scribe for Nate Jordan MD History of Present Illness General Chief complaint: Shortness of Breath/Dyspnea Stated complaint: SOB,DIARRHEA Time Seen by Provider: 11/20/19 15:22 Source: patient and family () History of Present Illness Onset (ago): day(s) 3 Location: chest Pain Consistency: + other (multiple episodes) Quality: + other (shortness of breath) Exacerbated By: + other (exertion) Associated symptoms: + diaphoresis and + other (+abdominal pain; +black stool; +diarrhea; +pale; -swelling to legs); no chest pain, no fever/chills and no nausea/vomiting The patient is a 69 year old male, with past medical history of CHF, PE, and CKD, who presents to the Emergency Room with complaints of multiple episodes of shortness of breath with exertion over the past 3 days. The patient reports that, this morning, he became short of breath and diaphoretic upon walking to his bathroom. The patient notes this has happened multiple times over the last 3 days. The patient states he has experienced black stool today and yesterday, and the patient notes of one episode of diarrhea. The patient reports he is on Xarelto. The patients states that the patient has not kept up with fluids today, and she notes that the patient has been pale. The patient also reports of central abdominal pain that the patient states he had yesterday. The patient denies chest pain, fever, nausea/vomiting, or swelling to his legs. The patient notes he had a blood clot in his chest and in his leg in the past. The patient reports he had symptoms of shortness of breath and fatigue during those episodes of blood clots. The patient notes his PCP is Dr. Kinga Diaz. He denies history of GI bleeds. The patient also denies currently being on pain medications or having taken Pepto-Bismol today. The patient denies monitoring his weight recently. Home Medications Home Medications Medication Instructions Recorded Confirmed Type atorvastatin 40 mg PO PM 10/29/19 11/20/19 History furosemide 20 mg PO QAM 10/29/19 11/20/19 History metoprolol succinate 50 mg PO QAM 10/29/19 11/20/19 History rivaroxaban [Xarelto] 20 mg PO PM 10/29/19 11/20/19 History sacubitril-valsartan [Entresto] 1 tab PO BID 10/29/19 11/20/19 History spironolactone 12.5 mg PO QAM 10/29/19 11/20/19 History cholecalciferol (vitamin D3) 2,000 unit PO DAILY 11/20/19 11/20/19 History [Vitamin D3] cyanocobalamin (vitamin B-12) 1,000 mcg PO DAILY 11/20/19 11/20/19 History [Vitamin B-12] Allergies Allergy/AdvReac Type Severity Reaction Status Date / Time diphtheria toxoid,fluid Allergy Severe CONVULSIONS--HORSE Verified 11/20/19 15:48 SERUM BASE tetanus toxoid, adsorbed Allergy Severe CONVULSIONS--HORSE Verified 11/20/19 15:48 SERUM BASE Past Med/Surg History Medical History Atrial fibrillation dx 2016 - follows w/ Dr. Trejo CAD (coronary artery disease) Cardiomegaly Chronic kidney disease Congestive heart failure Deep vein thrombosis RLE - 2016 dx while hospitalized w/ pneumonia Hearing deficit BL [facility] History of cardioversion Hyperlipidemia Hypertension Osteoarthritis Presence of combination internal cardiac defibrillator (ICD) and pacemaker placed 2017 - [employer] - last checked 1 year ago - follows w/ dr. yeh Pulmonary embolism 2016 - dx while hospitalized w/ pneumonia - on xarelto Surgical History History of appendectomy History of cardiac catheterization 2016 - [place] - no stents History of carpal tunnel release of both wrists History of cataract surgery History of colonoscopy History of evacuation of hematoma LLE History of shoulder surgery Left History of tonsillectomy Family History Mother Family history of diabetes mellitus Social History Preferred Language: Togolese Communication Ability: Effective Station Mechanic Required: No Beliefs That Will Affect Care: None Current Living Situation: Spouse Other Information That Helps Us Care for You: No Feels Safe at Home: Yes Safety Concerns: Feels Safe At This Time Smoking Status: Former smoker Tobacco Type: cigarettes ; Do You Dip or Chew Tobacco: No ; Second Hand Exposure: No ; Hx Alcohol Use: No Hx Substance Use: No Review of Systems See HPI for pertinent positives & negatives. and A total of 10 systems reviewed and were otherwise negative Physical Exam Vital Signs Vital Signs - 24 hr 11/20/19 14:49 11/20/19 15:23 11/20/19 15:25 Temperature 36.4 C L Temperature Source Oral Pulse Rate 107 H 108 H Pulse Rate [Finger] 92 H Pulse Rate from SpO2 Sensor 107 H Respiratory Rate 20 19 Respiratory Effort / Characteristics Non-Labored Spontaneous Respiratory Depth Normal Blood Pressure 87/57 L 84/58 L Blood Pressure [Right Arm] 84/58 L Blood Pressure Mean 67 67 Blood Pressure Mean [Right Arm] 66 Pulse Oximetry 107 H 96 98 Oxygen Delivery Method Room Air Room Air Sepsis Recent Fever Within 48 Hours No Sepsis New/Unexplained Change in Mental Status No Sepsis Action Taken by Nursing No Action Required 11/20/19 15:30 11/20/19 15:31 11/20/19 15:45 Temperature Temperature Source Pulse Rate 92 H 90 102 H Pulse Rate [Finger] Pulse Rate from SpO2 Sensor 93 H 85 101 H Respiratory Rate 36 H 21 22 Respiratory Effort / Characteristics Respiratory Depth Blood Pressure 92/65 L 95/63 L Blood Pressure [Right Arm] Blood Pressure Mean 72 68 Blood Pressure Mean [Right Arm] Pulse Oximetry 98 97 96 Oxygen Delivery Method Sepsis Recent Fever Within 48 Hours Sepsis New/Unexplained Change in Mental Status Sepsis Action Taken by Nursing 11/20/19 15:46 11/20/19 16:00 11/20/19 16:01 Temperature Temperature Source Pulse Rate 104 H 97 H 100 H Pulse Rate [Finger] Pulse Rate from SpO2 Sensor 105 H 95 H 100 H Respiratory Rate 21 28 H 28 H Respiratory Effort / Characteristics Respiratory Depth Blood Pressure 99/58 L Blood Pressure [Right Arm] Blood Pressure Mean 66 Blood Pressure Mean [Right Arm] Pulse Oximetry 99 97 99 Oxygen Delivery Method Sepsis Recent Fever Within 48 Hours Sepsis New/Unexplained Change in Mental Status Sepsis Action Taken by Nursing 11/20/19 16:15 11/20/19 16:16 11/20/19 16:30 Temperature Temperature Source Pulse Rate 93 H 98 H 94 H Pulse Rate [Finger] Pulse Rate from SpO2 Sensor 93 H 92 H 95 H Respiratory Rate 24 25 H 24 Respiratory Effort / Characteristics Respiratory Depth Blood Pressure 93/59 L 88/61 L Blood Pressure [Right Arm] Blood Pressure Mean 68 66 Blood Pressure Mean [Right Arm] Pulse Oximetry 96 98 99 Oxygen Delivery Method Sepsis Recent Fever Within 48 Hours Sepsis New/Unexplained Change in Mental Status Sepsis Action Taken by Nursing 11/20/19 16:31 11/20/19 16:45 11/20/19 16:46 Temperature Temperature Source Pulse Rate 93 H 90 90 Pulse Rate [Finger] 97 H Pulse Rate from SpO2 Sensor 96 H 91 H 92 H Respiratory Rate 21 32 H 32 H Respiratory Effort / Characteristics Respiratory Depth Blood Pressure 87/64 L Blood Pressure [Right Arm] 88/61 L Blood Pressure Mean 72 Blood Pressure Mean [Right Arm] 70 Pulse Oximetry 98 100 98 Oxygen Delivery Method Room Air Sepsis Recent Fever Within 48 Hours Sepsis New/Unexplained Change in Mental Status Sepsis Action Taken by Nursing 11/20/19 17:28 11/20/19 17:29 11/20/19 17:30 Temperature Temperature Source Pulse Rate 96 H 88 89 Pulse Rate [Finger] Pulse Rate from SpO2 Sensor 90 84 Respiratory Rate 25 H 29 H 28 H Respiratory Effort / Characteristics Respiratory Depth Blood Pressure 92/60 L 90/66 L Blood Pressure [Right Arm] Blood Pressure Mean 69 70 Blood Pressure Mean [Right Arm] Pulse Oximetry 99 95 Oxygen Delivery Method Sepsis Recent Fever Within 48 Hours Sepsis New/Unexplained Change in Mental Status Sepsis Action Taken by Nursing 11/20/19 17:31 11/20/19 17:45 11/20/19 17:46 Temperature Temperature Source Pulse Rate 89 90 88 Pulse Rate [Finger] Pulse Rate from SpO2 Sensor 89 90 88 Respiratory Rate 28 H 25 H 20 Respiratory Effort / Characteristics Respiratory Depth Blood Pressure 94/64 L Blood Pressure [Right Arm] Blood Pressure Mean 68 Blood Pressure Mean [Right Arm] Pulse Oximetry 95 98 99 Oxygen Delivery Method Sepsis Recent Fever Within 48 Hours Sepsis New/Unexplained Change in Mental Status Sepsis Action Taken by Nursing 11/20/19 18:00 11/20/19 18:01 11/20/19 18:15 Temperature Temperature Source Pulse Rate 88 83 87 Pulse Rate [Finger] Pulse Rate from SpO2 Sensor 88 83 87 Respiratory Rate 34 H 30 H 17 Respiratory Effort / Characteristics Respiratory Depth Blood Pressure 105/68 105/66 Blood Pressure [Right Arm] Blood Pressure Mean 73 69 Blood Pressure Mean [Right Arm] Pulse Oximetry 100 98 97 Oxygen Delivery Method Sepsis Recent Fever Within 48 Hours Sepsis New/Unexplained Change in Mental Status Sepsis Action Taken by Nursing 11/20/19 18:16 11/20/19 18:30 11/20/19 18:31 Temperature Temperature Source Pulse Rate 85 83 85 Pulse Rate [Finger] Pulse Rate from SpO2 Sensor 84 83 85 Respiratory Rate 22 25 H 24 Respiratory Effort / Characteristics Respiratory Depth Blood Pressure 91/63 L Blood Pressure [Right Arm] Blood Pressure Mean 69 Blood Pressure Mean [Right Arm] Pulse Oximetry 97 99 100 Oxygen Delivery Method Sepsis Recent Fever Within 48 Hours Sepsis New/Unexplained Change in Mental Status Sepsis Action Taken by Nursing 11/20/19 18:45 11/20/19 18:46 11/20/19 19:00 Temperature Temperature Source Pulse Rate 87 88 87 Pulse Rate [Finger] Pulse Rate from SpO2 Sensor 86 83 86 Respiratory Rate 17 20 32 H Respiratory Effort / Characteristics Respiratory Depth Blood Pressure 83/58 L 98/57 L Blood Pressure [Right Arm] Blood Pressure Mean 71 85 Blood Pressure Mean [Right Arm] Pulse Oximetry 98 97 100 Oxygen Delivery Method Sepsis Recent Fever Within 48 Hours Sepsis New/Unexplained Change in Mental Status Sepsis Action Taken by Nursing 11/20/19 19:01 11/20/19 19:15 11/20/19 19:16 Temperature Temperature Source Pulse Rate 88 86 90 Pulse Rate [Finger] Pulse Rate from SpO2 Sensor 89 84 83 Respiratory Rate 20 21 21 Respiratory Effort / Characteristics Respiratory Depth Blood Pressure 97/61 L Blood Pressure [Right Arm] Blood Pressure Mean 75 Blood Pressure Mean [Right Arm] Pulse Oximetry 95 100 97 Oxygen Delivery Method Sepsis Recent Fever Within 48 Hours Sepsis New/Unexplained Change in Mental Status Sepsis Action Taken by Nursing 11/20/19 19:30 11/20/19 19:31 11/20/19 19:37 Temperature Temperature Source Pulse Rate 90 85 87 Pulse Rate [Finger] Pulse Rate from SpO2 Sensor 88 84 86 Respiratory Rate 22 22 22 Respiratory Effort / Characteristics Respiratory Depth Blood Pressure 77/64 L 100/65 Blood Pressure [Right Arm] Blood Pressure Mean 70 70 Blood Pressure Mean [Right Arm] Pulse Oximetry 100 100 100 Oxygen Delivery Method Sepsis Recent Fever Within 48 Hours Sepsis New/Unexplained Change in Mental Status Sepsis Action Taken by Nursing 11/20/19 19:45 11/20/19 19:46 11/20/19 20:00 Temperature Temperature Source Pulse Rate 84 82 84 Pulse Rate [Finger] Pulse Rate from SpO2 Sensor 86 83 84 Respiratory Rate 22 28 H 30 H Respiratory Effort / Characteristics Respiratory Depth Blood Pressure 88/65 L 103/64 Blood Pressure [Right Arm] Blood Pressure Mean 75 71 Blood Pressure Mean [Right Arm] Pulse Oximetry 100 99 96 Oxygen Delivery Method Sepsis Recent Fever Within 48 Hours Sepsis New/Unexplained Change in Mental Status Sepsis Action Taken by Nursing 11/20/19 20:01 11/20/19 20:15 11/20/19 20:16 Temperature Temperature Source Pulse Rate 85 85 80 Pulse Rate [Finger] Pulse Rate from SpO2 Sensor 84 86 81 Respiratory Rate 23 21 18 Respiratory Effort / Characteristics Respiratory Depth Blood Pressure 100/67 Blood Pressure [Right Arm] Blood Pressure Mean 70 Blood Pressure Mean [Right Arm] Pulse Oximetry 93 100 99 Oxygen Delivery Method Sepsis Recent Fever Within 48 Hours Sepsis New/Unexplained Change in Mental Status Sepsis Action Taken by Nursing 11/20/19 20:30 11/20/19 20:31 11/20/19 20:45 Temperature Temperature Source Pulse Rate 85 85 83 Pulse Rate [Finger] Pulse Rate from SpO2 Sensor 85 83 82 Respiratory Rate 21 22 23 Respiratory Effort / Characteristics Respiratory Depth Blood Pressure 89/64 L 90/67 L Blood Pressure [Right Arm] Blood Pressure Mean 68 72 Blood Pressure Mean [Right Arm] Pulse Oximetry 98 98 98 Oxygen Delivery Method Sepsis Recent Fever Within 48 Hours Sepsis New/Unexplained Change in Mental Status Sepsis Action Taken by Nursing 11/20/19 20:46 Temperature Temperature Source Pulse Rate 85 Pulse Rate [Finger] Pulse Rate from SpO2 Sensor 81 Respiratory Rate 27 H Respiratory Effort / Characteristics Respiratory Depth Blood Pressure Blood Pressure [Right Arm] Blood Pressure Mean Blood Pressure Mean [Right Arm] Pulse Oximetry 98 Oxygen Delivery Method Sepsis Recent Fever Within 48 Hours Sepsis New/Unexplained Change in Mental Status Sepsis Action Taken by Nursing General: Non-ill appearing older male in no acute distress. HEENT: Normal cephalic atraumatic. Pupils are equal round and reactive to light. Extraocular movements are intact. Oropharynx is pink with moist mucous membranes. No swelling of the mouth lips or tongue. Neck: Supple with a midline trachea. No meningeal signs or stiffness, no JVD or bruits. No Stridor. Chest: Clear to auscultation bilaterally. No wheezes or rhonchi. No increased work of breathing. Heart: regular rate and rhythm. Abdomen: Soft nontender, nondistended without rebound guarding or rigidity. Extremities: No cyanosis clubbing or edema. No calf tenderness or asymmetry Spine/Back. Non tender to palpation. No CVA tenderness Skin: Good turgor without rashes. Rectal: Dark stool which was guaiac positive when tested by nurse. Neurologic exam: Cranial nerves two through 12 are intact. Motor and sensation are intact and symmetrical throughout. Course Course 1523: Past medical records reviewed. The patient was evaluated in room B5. A complete history and physical exam was performed. 1618: I reevaluated the patient. The patient is resting comfortably. His blood pressure is in the 90s. 1642: I reevaluated and updated the patient. The patient's blood pressure is on the low side, but he is looking good. The patient is about to start receiving fluids. 1700: I reviewed the patient's case with Dr. Rivera [facility]. 1704: I updated the patient on his case. The patient just got back from CT, and he appears stable. 1733: I reevaluated and updated the patient. 1748: I reviewed the patient's case with Dr. Rivera [facility]. Dr. Carmichael will evaluate the patient for further management. 1810: The patient consented for blood and his consent is on the chart. I explained risks and benefits. The 2nd IV has started. The patient is starting Protonix. His pressure is up to 105 systolic. The patient is looking good. Consultations Consultation #1: I reviewed the patient's case with Dr. Rivera [facility]. Time: 17:00 Consultation #2: 1700: I reviewed the patient's case with Dr. Soila Keen [facility]. Dr. Carmichael will evaluate the patient for further management. Time: 17:48 Administered Medications Pantoprazole Sodium 40 mg/ (Dextrose) 100 mls @ 20 mls/hr IV Q5H [facility] Stop: 12/20/19 18:14 Last Admin: 11/20/19 18:38 Dose: 20 mls/hr Documented by: [id number] Ioversol (Optiray 320 125ml) 116 ml IV ONCE PRN PRN Reason: Interaction Checking Stop: 11/24/19 16:54 Last Admin: 11/20/19 16:56 Dose: 116 ml Documented by: [id number] Discontinued Medications Sodium Chloride (Nss) 500 mls @ 999 mls/hr IV .Q31M ONE Stop: 11/20/19 16:03 Last Infusion: 11/20/19 17:27 Dose: 0 mls/hr Documented by: [id number] Admin: 11/20/19 16:29 Dose: 999 mls/hr Documented by: [id number] Sodium Chloride (Nss 1000ml) 500 mls @ 999 mls/hr IV .Q31M ONE Stop: 11/20/19 18:19 Last Infusion: 11/20/19 18:23 Dose: 0 mls/hr Documented by: [id number] Admin: 11/20/19 17:52 Dose: 999 mls/hr Documented by: [id number] Pantoprazole Sodium 80 mg/ (Dextrose) 120 mls @ 480 mls/hr IV ONE ONE Stop: 11/20/19 18:14 Last Infusion: 11/20/19 18:33 Dose: 0 mls/hr Documented by: [id number] Admin: 11/20/19 18:15 Dose: 480 mls/hr Documented by: [id number] Critical Care Time Critical Care Time: Yes Total Critical Care Time: 40 I have personally spent 40 minutes of critical care time in the direct management of this patient. This includes bedside care, interpretation of diagnostic studies, and testing, discussion with consultants, patient, and family members, and other required patient management activities. This 40 minutes is in excess of all separately billable procedures. Medical Decision Making Differential Diagnosis Differential diagnoses include GI bleed, sepsis, pulmonary embolism, cardiac disease, electrolyte or metabolic imbalance, amongst others that were considered. Medical Records Attestation: I reviewed the patient's medical records. Home Medications Current Medication List: was personally reviewed by me Laboratory Data Attestation: I reviewed the patient's lab results. Result diagrams: 11/20/19 20:04 11/20/19 16:00 Lab Results 11/20/19 11/20/19 11/20/19 Range/Units 16:00 16:00 16:00 WBC 10.39 (4.8-10.8) K/uL RBC 3.47 L (4.7-6.1) M/uL Hgb 10.7 L (14.0-18.0) g/dL Hct 33.2 L (42-52) % MCV 95.7 (80-100) fL MCH 30.8 (25-34) pg MCHC 32.2 (32-36) g/dL RDW Std Deviation 48.9 H (36.4-46.3) fL RDW Coeff of Yogi 14.1 (11.5-14.5) % Plt Count 232 (130-400) K/uL MPV 11.1 H (7.4-10.4) fL Immature Gran % (Auto) 0.2 % Neut % (Auto) 87.9 % Lymph % (Auto) 7.6 % [place] % (Auto) 4.1 % Eos % (Auto) 0.1 % Baso % (Auto) 0.1 % Immature Gran # (Auto) 0.02 (0.00-0.02) K/uL Neut # (Auto) 9.13 H (1.4-6.5) K/uL Lymph # (Auto) 0.79 L (1.2-3.4) K/uL [place] # (Auto) 0.43 (0.11-0.59) K/uL Eos # (Auto) 0.01 (0-0.5) K/uL Baso # (Auto) 0.01 (0-0.2) K/uL PT Cancelled INR Cancelled APTT Cancelled PTT Ratio Cancelled Sodium 136 (136-145) mmol/L Potassium 5.7 H (3.5-5.1) mmol/L Chloride 107 (98-107) mmol/L Carbon Dioxide 26 (21-32) mmol/L Anion Gap 3.0 (3-11) BUN 64 H (7-18) mg/dl Creatinine 1.33 (0.6-1.4) mg/dl Est Cr Clr Drug Dosing Not Reportable Est GFR ( Amer) 61.9 Est GFR (Non-Af Amer) 53.4 BUN/Creatinine Ratio 48.3 H (10-20) Glucose 120 H (70-99) mg/dl Lactate (0.4-2.0) mmol/L Calcium 9.2 (8.5-10.1) mg/dl Magnesium 2.2 (1.8-2.4) mg/dl Total Bilirubin 0.4 (0.2-1) mg/dl AST 9 L (15-37) U/L ALT 19 (12-78) U/L Alkaline Phosphatase 89 (45-117) U/L Troponin I < 0.015 (0-0.045) ng/ml Total Protein 8.1 (6.4-8.2) gm/dl Albumin 3.7 (3.4-5.0) gm/dl Globulin 4.4 H (2.5-4.0) gm/dl Albumin/Globulin Ratio 0.8 L (0.9-2) Urine Color Urine Appearance (Clear) Urine pH (4.5-7.5) Ur Specific [place] (1.000-1.030) Urine Protein (Negative) Urine Glucose (UA) (Negative) Urine Ketones (Negative) Urine Blood (Negative) Urine Nitrite (Negative) Urine Bilirubin (Negative) Urine Urobilinogen (Negative) Ur Leukocyte Esterase (Negative) Blood Type Antibody Screen Crossmatch 11/20/19 11/20/19 11/20/19 Range/Units 16:00 16:00 16:46 WBC (4.8-10.8) K/uL RBC (4.7-6.1) M/uL Hgb (14.0-18.0) g/dL Hct (42-52) % MCV (80-100) fL MCH (25-34) pg MCHC (32-36) g/dL RDW Std Deviation (36.4-46.3) fL RDW Coeff of Yogi (11.5-14.5) % Plt Count (130-400) K/uL MPV (7.4-10.4) fL Immature Gran % (Auto) % Neut % (Auto) % Lymph % (Auto) % [place] % (Auto) % Eos % (Auto) % Baso % (Auto) % Immature Gran # (Auto) (0.00-0.02) K/uL Neut # (Auto) (1.4-6.5) K/uL Lymph # (Auto) (1.2-3.4) K/uL [place] # (Auto) (0.11-0.59) K/uL Eos # (Auto) (0-0.5) K/uL Baso # (Auto) (0-0.2) K/uL PT 33.6 H INR 3.6 H APTT 47.4 H* PTT Ratio 1.7 Sodium (136-145) mmol/L Potassium (3.5-5.1) mmol/L Chloride (98-107) mmol/L Carbon Dioxide (21-32) mmol/L Anion Gap (3-11) BUN (7-18) mg/dl Creatinine (0.6-1.4) mg/dl Est Cr Clr Drug Dosing Est GFR ( Amer) Est GFR (Non-Af Amer) BUN/Creatinine Ratio (10-20) Glucose (70-99) mg/dl Lactate 1.2 (0.4-2.0) mmol/L Calcium (8.5-10.1) mg/dl Magnesium (1.8-2.4) mg/dl Total Bilirubin (0.2-1) mg/dl AST (15-37) U/L ALT (12-78) U/L Alkaline Phosphatase (45-117) U/L Troponin I (0-0.045) ng/ml Total Protein (6.4-8.2) gm/dl Albumin (3.4-5.0) gm/dl Globulin (2.5-4.0) gm/dl Albumin/Globulin Ratio (0.9-2) Urine Color Urine Appearance (Clear) Urine pH (4.5-7.5) Ur Specific [place] (1.000-1.030) Urine Protein (Negative) Urine Glucose (UA) (Negative) Urine Ketones (Negative) Urine Blood (Negative) Urine Nitrite (Negative) Urine Bilirubin (Negative) Urine Urobilinogen (Negative) Ur Leukocyte Esterase (Negative) Blood Type O Positive Antibody Screen NEGATIVE Crossmatch See Detail 11/20/19 11/20/19 Range/Units 20:04 20:10 WBC (4.8-10.8) K/uL RBC (4.7-6.1) M/uL Hgb 9.5 L (14.0-18.0) g/dL Hct 29.1 L (42-52) % MCV (80-100) fL MCH (25-34) pg MCHC (32-36) g/dL RDW Std Deviation (36.4-46.3) fL RDW Coeff of Yogi (11.5-14.5) % Plt Count (130-400) K/uL MPV (7.4-10.4) fL Immature Gran % (Auto) % Neut % (Auto) % Lymph % (Auto) % [place] % (Auto) % Eos % (Auto) % Baso % (Auto) % Immature Gran # (Auto) (0.00-0.02) K/uL Neut # (Auto) (1.4-6.5) K/uL Lymph # (Auto) (1.2-3.4) K/uL [place] # (Auto) (0.11-0.59) K/uL Eos # (Auto) (0-0.5) K/uL Baso # (Auto) (0-0.2) K/uL PT INR APTT PTT Ratio Sodium (136-145) mmol/L Potassium (3.5-5.1) mmol/L Chloride (98-107) mmol/L Carbon Dioxide (21-32) mmol/L Anion Gap (3-11) BUN (7-18) mg/dl Creatinine (0.6-1.4) mg/dl Est Cr Clr Drug Dosing Est GFR ( Amer) Est GFR (Non-Af Amer) BUN/Creatinine Ratio (10-20) Glucose (70-99) mg/dl Lactate (0.4-2.0) mmol/L Calcium (8.5-10.1) mg/dl Magnesium (1.8-2.4) mg/dl Total Bilirubin (0.2-1) mg/dl AST (15-37) U/L ALT (12-78) U/L Alkaline Phosphatase (45-117) U/L Troponin I (0-0.045) ng/ml Total Protein (6.4-8.2) gm/dl Albumin (3.4-5.0) gm/dl Globulin (2.5-4.0) gm/dl Albumin/Globulin Ratio (0.9-2) Urine Color Yellow Urine Appearance Clear (Clear) Urine pH 5.0 (4.5-7.5) Ur Specific [place] 1.029 (1.000-1.030) Urine Protein Negative (Negative) Urine Glucose (UA) Negative (Negative) Urine Ketones Negative (Negative) Urine Blood Negative (Negative) Urine Nitrite Negative (Negative) Urine Bilirubin Negative (Negative) Urine Urobilinogen Negative (Negative) Ur Leukocyte Esterase Negative (Negative) Blood Type Antibody Screen Crossmatch Imaging Data Radiologist's Impression: Radiology results as stated below per my review and the radiologist's interpretation: XR chest 1V portable CLINICAL HISTORY: SEPSIS COMPARISON STUDY: Chest CT February 06, 2017. Chest radiograph January 26, 2018. FINDINGS: 2-lead left subclavian pacer/AICD is in place. There is no pneumothorax or pleural effusion. There is no consolidation. Interstitial thickening within the lungs has likely slightly increased. This suggests interstitial lung disease. Calcified right hilar and mediastinal lymph nodes are incidentally noted. Cardiac mediastinal silhouette is stable. IMPRESSION: 1. No acute cardiopulmonary findings. 2. Slight interval increase in interstitial thickening suggestive of interstiti al lung disease. ACT 112: Negative or not required by law. Electronically signed by: Ramiro Ponce M.D. 11/20/2019 3:[address] abd pelvis IV con only CLINICAL HISTORY: 69 years-old Male presenting with weakness. TECHNIQUE: Multidetector CT of the abdomen and pelvis was performed after the administration of intravenous contrast. IV contrast: 116 mL of Optiray 320. A One or more dose lowering techniques were used consistent with the principles of ALARA (as low as reasonably achievable), including automatic exposure control, mA or kV adjustment to individual patient size, and/or use of iterative reconstruction. COMPARISON: None. CT DOSE (mGy.cm): The estimated cumulative dose is 1710.29. FINDINGS: Manager Documentation topogram: Implanted cardiac defibrillator leads to the right atrium and right ventricular apex. Lung bases: Normal heart size. Coronary artery calcification. Trace left pleural effusion and pleural thickening. Bibasilar reticular opacities greater on the right. Bronchiectasis also evident, greater on the right. Liver: Normal morphology. No liver lesion. Patent hepatic vasculature. Biliary: No intrahepatic or extrahepatic biliary ductal dilatation. Normal gallbladder. Pancreas: Mild parenchymal atrophy. Spleen: Granulomatous disease suggested by the presence of punctate calcifications in the parenchyma. Adrenal glands: Normal. Kidneys and ureters: Simple cyst at the upper pole the right kidney. Smaller simple cysts in the left kidney. No nephrolithiasis or hydronephrosis. Trace urothelial thickening may be present bilaterally. Bladder: Normal. Pelvic organs: Prostate and seminal vesicles normal. Bowel: Normal. No bowel obstruction. Peritoneal cavity: No free fluid or intraperitoneal gas. Lymph nodes: No enlarged lymph nodes in the abdomen or pelvis. Vasculature: Atherosclerosis of the abdominal aorta with mild ectasia and infrarenal portion measuring up to 2.9 cm. IVC patent. Abdominal wall: Gynecomastia. Musculoskeletal: Degenerative changes of the spine, hips right greater than left, and sacral iliac joints. IMPRESSION: 1. Fibrotic changes at the lung bases. The pattern is not specific for usual interstitial pneumonia. No convincing evidence of a superimposed infiltrate at the lung bases. 2. Trace left pleural effusion and left pleural thickening. This may relate to the underlying chronic lung disease. 3. No acute intra-abdominal pathology. 4. Evidence of old granulomatous disease. 5. 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 This could be followed with ultrasound. ACT 112: Negative or not required by law. Electronically signed by: Aiden Catalan M.D. 11/20/2019 5:[address] angio chest PE protocol CLINICAL HISTORY: 69 years-old Male presenting with shortness of breath, weakness, clinical concern for pulmonary embolus. TECHNIQUE: Multidetector CT angiography of the chest was performed after administration of intravenous contrast. 3-D volumetric and/or maximum intensity projection (MIP) images were subsequently reconstructed for review. IV contrast: 116 mL of Optiray 320. One or more dose lowering techniques were used consistent with the principles of ALARA (as low as reasonably achievable), including automatic exposure control, mA or kV adjustment to individual patient size, and/or use of iterative reconstruction. COMPARISON: Noncontrast chest CT 07/2017. CT DOSE (mGy.cm): The estimated cumulative dose is 1710.29 mGy.cm. FINDINGS: Manager Documentation topogram: Left subclavian implanted cardiac defibrillator with leads to the right atrium and right ventricular apex. Pulmonary vasculature: The study is adequate for assessment of the pulmonary vascular tree. No filling defect within the pulmonary arteries to suggest embolus. Main pulmonary artery is not enlarged. No flattening of the interventricular septum. No intracardiac filling defect. No reflux of contrast into the hepatic veins. Remaining chest: Soft tissues: Normal thyroid and thoracic inlet. Gynecomastia. Calcified mediastinal and right hilar lymph nodes indicate a history of granulomatous disease. Atherosclerosis of the aorta. Normal heart size. Coronary artery calcification. Trace left pleural effusion. Pleural thickening is also suspected. This is new from prior. Right renal cysts. Calcifications in the spleen also indicate a history of granulomatous disease. Lungs and airways: Mild bronchial wall thickening in the lower lobes greater on the right. There is also right lower lobe bronchiectasis. Subpleural reticular opacities with a dependent predominance, right greater than left. No evidence of a stacked subpleural cystic pattern. Reticulonodular subpleural opacities with an apical predominance, possibly pleural parenchymal scarring. All these changes have slightly progressed from prior. Central airways patent. Pulmonary arteries are not significantly enlarged relative to adjacent bronchi. No interlobular septal thickening. Calcified granuloma noted. Musculoskeletal: Degenerative changes of the spine. Degenerative changes of the left glenohumeral joint. IMPRESSION: 1. Slight interval progression of the underlying chronic lung disease with right basilar fibrotic change greatest in the right lower lobe. The appearance is not typical for usual interstitial pneumonia pattern. Differential considerations include aspiration/chronic reflux among other possibilities. 2. No superimposed infiltrate to suggest pneumonia. No suspicious nodule. 3. No evidence of pulmonary embolus. ACT 112: Negative or not required by law. Electronically signed by: Aiden Catalan M.D. 11/20/2019 5:15 PM ECG Data Attestation: I personally reviewed and interpreted this ECG as follows: Indication: + SOB/dyspnea Rate (beats per minute): 97 Rhythm: + normal sinus ECG ST segments: no ST depression and no ST elevation ECG Findings: no PACs and no PVCs Comparison ECG Date: from (06/19/18) Change: the following changes noted (normal sinus rhythm has replaced paced rhythm ) Blood Pressure Blood Pressure Findings: Low blood pressure Blood Pressure Disposition: further management by hospitalist [facility] Narrative This patient comes in after having shortness of breath and weakness which is only occurring with exertion. He was noted to have low blood pressure. He does have a complex medical history with history of PEs on Xarelto. He tells me his stool has been dark the last 2 days as well. I did a rectal exam and it was dark and it was guaiac positive, raising the concern for GI bleed as the culprit. With his low blood pressure, there is concern for infection however he has no other symptoms but I did do a sepsis type work-up. Chest x-ray, EKG, and multiple blood testing was obtained. He will was given initial 500 cc IV normal saline bolus he was reassessed frequently. He has remained stable. Blood pressure did come up in the 100s with some fluids. His initial hemoglobin was 10.7 and therefore not as low as I expected. His BUN is also elevated which could be more of a prerenal or could be related to GI bleed. He has no white count or fever or elevation of his lactic acid or anything else to suggest acute infection or sepsis. Given his history of PEs, I did do a chest CTA and there is no evidence of PE or other acute pathology does have some chronic interstitial lung disease which may look slightly worse. There is no acute abdominal process. He does have a small aneurysm which will likely need monitoring in the future but does not appear to be causing his symptoms today. EKG does not suggest acute coronary syndrome. his troponin is negative. he was kept on a monitor and had no arrhythmias while in the ED. We did have 2 large- bore IVs established in his antecubital fossa's bilaterally. He was also given Protonix IV bolus as he likely has an upper GI bleed. He is on Xarelto but has not taken it since yesterday evening. At this point he has had no bleeding for multiple hours in the emergency department and no bloody stools except for when I check him for guaiac and does not appear to be significantly bleeding but I do think he needs to be admonished admitted given his blood pressure being on the low side and the fact he is on Xarelto. I did type and cross him in the event that he needs blood and also consented the patient in the presence of his and sister and they all freely consent after I discussed the risks and benefits. I did discuss the case with the [facility] hospitalist who will be admitting him for further inpatient treatment and evaluation. Impression & Plan Acute GI bleeding, BALDERAS (dyspnea on exertion), Acute hypotension, Weakness, manager terminal (current) use of anticoagulants Discharge Plan Visit Data *Final* Discharge Date/Time: 11/20/19 21:27 Chief Complaint: Shortness of Breath/Dyspnea Stated Complaint: SOB,DIARRHEA ED Provider: Nate Jordan Discharge Problem: Acute GI bleeding, BALDERAS (dyspnea on exertion), Acute hypotension, Weakness, correction (current) use of anticoagulants Patient Disposition: Admitted As Inpatient Discharge Instructions Interventions: ED Discharge Assessment Last Done: 11/20/19 21:27 The scribe's documentation has been prepared under my direction and personally reviewed by me in its entirety. I confirm that the note above accurately reflects all work, treatment, procedures, and medical decision making performed by me.
--- NOTE | 2019-11-20 15:54 | XRay Report ---
XR chest 1V portable CLINICAL HISTORY: SEPSIS COMPARISON STUDY: Chest CT February 06, 2017. Chest radiograph January 26, 2018. FINDINGS: 2-lead left subclavian pacer/AICD is in place. There is no pneumothorax or pleural effusion . There is no consolidation. Interstitial thickening within the lungs has likely slightly increased. This suggests interstitial lung disease. Calcified right hilar and mediastinal lymph nodes are incide ntally noted. Cardiac mediastinal silhouette is stable. IMPRESSION: 1. No acute cardiopulmonary findings. 2. Slight interval increase in interstitial thickening suggestive of interstitial lung disease. ACT 112: Negative or not required by law. Electronically signed by: Ramiro Ponce M.D. 11/20/2019 3:53 PM
[2019-11-20 16:17] LABS: Basophils # (auto) 0.01 K/uL (0-0.2); Basophils % (auto) 0.1 %; Eosinophils # (auto) 0.01 K/uL (0-0.5); Eosinophils % (auto) 0.1 %; Hematocrit (blood only) 33.2 % (42-52); Hemoglobin 10.7 g/dL (14.0-18.0); Immature Granulocytes # (auto) 0.02 K/uL (0.00-0.02); Immature Granulocytes % (auto) 0.2 %; Lymphocytes # (auto) 0.79 K/uL (1.2-3.4); Lymphocytes % (auto) 7.6 %; Mean Corpuscular Hemoglobin 30.8 pg (25-34); Mean Corpuscular Hgb Conc 32.2 g/dL (32-36); Mean Corpuscular Volume 95.7 fL (80-100); Mean Platelet Volume 11.1 fL (7.4-10.4); Monocytes # (auto) 0.43 K/uL (0.11-0.59); Monocytes % (auto) 4.1 %; Neutrophils # (auto) 9.13 K/uL (1.4-6.5); Neutrophils % (auto) 87.9 %; Platelet Count 232 K/uL (130-400); RDW Coefficient of Variation 14.1 % (11.5-14.5); RDW Standard Deviation 48.9 fL (36.4-46.3); Red Blood Count 3.47 M/uL (4.7-6.1); White Blood Count 10.39 K/uL (4.8-10.8)
[2019-11-20 16:43] LABS: Alanine Aminotransferase 19 U/L (12-78); Albumin Level 3.7 gm/dl (3.4-5.0); Aspartate Aminotransferase 9 U/L (15-37); BUN Creatinine Ratio 48.3 (10-20); Blood Urea Nitrogen 64 mg/dl (7-18); Calcium 9.2 mg/dl (8.5-10.1); Carbon Dioxide 26 mmol/L (21-32); Chloride 107 mmol/L (98-107); Est GFR (African American) 61.9; Est GFR (Non-African American) 53.4; Glucose 120 mg/dl (70-99); Magnesium 2.2 mg/dl (1.8-2.4); Potassium 5.7 mmol/L (3.5-5.1); Sodium 136 mmol/L (136-145)
[2019-11-20 16:46] LABS: Albumin Globulin Ratio 0.8 (0.9-2); Alkaline Phosphatase 89 U/L (45-117); Bilirubin,Total 0.4 mg/dl (0.2-1); Globulin 4.4 gm/dl (2.5-4.0); Total Protein 8.1 gm/dl (6.4-8.2); Troponin I < 0.015 ng/ml (0-0.045)
[2019-11-20] MEDS ORDERED: OPTIRAY 320 125ml IV PRN (16:55)
--- NOTE | 2019-11-20 17:16 | CT Scan Report ---
CT angio chest PE protocol CLINICAL HISTORY: 69 years-old Male presenting with shortness of breath, weakness, clinical concern f or pulmonary embolus. TECHNIQUE: Multidetector CT angiography of the chest was performed after administration of intravenou s contrast. 3-D volumetric and/or maximum intensity projection (MIP) images were subsequently reconst ructed for review. IV contrast: 116 mL of Optiray 320. One or more dose lowering techniques were used consistent with the principles of ALARA (as low as reasonably achievable), including automatic expos ure control, mA or kV adjustment to individual patient size, and/or use of iterative reconstruction. COMPARISON: Noncontrast chest CT 07/2017. CT DOSE (mGy.cm): The estimated cumulative dose is 1710.29 mGy.cm. FINDINGS: Sales Inspector topogram: Left subclavian implanted cardiac defibrillator with leads to the right atrium and ri ght ventricular apex. Pulmonary vasculature: The study is adequate for assessment of the pulmonary vascular tree. No filling defect within the pul monary arteries to suggest embolus. Main pulmonary artery is not enlarged. No flattening of the inter ventricular septum. No intracardiac filling defect. No reflux of contrast into the hepatic veins. Remaining chest: Soft tissues: Normal thyroid and thoracic inlet. Gynecomastia. Calcified mediastinal and right hilar lymph nodes indicate a history of granulomatous disease. Atherosclerosis of the aorta. Normal heart s ize. Coronary artery calcification. Trace left pleural effusion. Pleural thickening is also suspected . This is new from prior. Right renal cysts. Calcifications in the spleen also indicate a history of granulomatous disease. Lungs and airways: Mild bronchial wall thickening in the lower lobes greater on the right. There is a lso right lower lobe bronchiectasis. Subpleural reticular opacities with a dependent predominance, ri ght greater than left. No evidence of a stacked subpleural cystic pattern. Reticulonodular subpleural opacities with an apical predominance, possibly pleural parenchymal scarring. All these changes have slightly progressed from prior. Central airways patent. Pulmonary arteries are not significantly enl arged relative to adjacent bronchi. No interlobular septal thickening. Calcified granuloma noted. Musculoskeletal: Degenerative changes of the spine. Degenerative changes of the left glenohumeral gerson nt. IMPRESSION: 1. Slight interval progression of the underlying chronic lung disease with right basilar fibrotic ch araseli greatest in the right lower lobe. The appearance is not typical for usual interstitial pneumonia pattern. Differential considerations include aspiration/chronic reflux among other possibilities. 2. No superimposed infiltrate to suggest pneumonia. No suspicious nodule. 3. No evidence of pulmonary embolus. ACT 112: Negative or not required by law. Electronically signed by: Aiden Catalan M.D. 11/20/2019 5:15 PM
[2019-11-20 17:21] LABS: Partial Thromboplastin Ratio 1.7; Prothrombin Time 33.6 Seconds (9.0-12.0)
--- NOTE | 2019-11-20 17:22 | CT Scan Report ---
CT abd pelvis IV con only CLINICAL HISTORY: 69 years-old Male presenting with weakness. TECHNIQUE: Multidetector CT of the abdomen and pelvis was performed after the administration of intra venous contrast. IV contrast: 116 mL of Optiray 320. A One or more dose lowering techniques were used consistent with the principles of ALARA (as low as reasonably achievable), including automatic expos ure control, mA or kV adjustment to individual patient size, and/or use of iterative reconstruction. COMPARISON: None. CT DOSE (mGy.cm): The estimated cumulative dose is 1710.29. FINDINGS: Philatelic Consultant topogram: Implanted cardiac defibrillator leads to the right atrium and right ventricular apex. Lung bases: Normal heart size. Coronary artery calcification. Trace left pleural effusion and pleural thickening. Bibasilar reticular opacities greater on the right. Bronchiectasis also evident, greater on the right. Liver: Normal morphology. No liver lesion. Patent hepatic vasculature. Biliary: No intrahepatic or extrahepatic biliary ductal dilatation. Normal gallbladder. Pancreas: Mild parenchymal atrophy. Spleen: Granulomatous disease suggested by the presence of punctate calcifications in the parenchyma. Adrenal glands: Normal. Kidneys and ureters: Simple cyst at the upper pole the right kidney. Smaller simple cysts in the left kidney. No nephrolithiasis or hydronephrosis. Trace urothelial thickening may be present bilaterally . Bladder: Normal. Pelvic organs: Prostate and seminal vesicles normal. Bowel: Normal. No bowel obstruction. Peritoneal cavity: No free fluid or intraperitoneal gas. Lymph nodes: No enlarged lymph nodes in the abdomen or pelvis. Vasculature: Atherosclerosis of the abdominal aorta with mild ectasia and infrarenal portion measurin g up to 2.9 cm. IVC patent. Abdominal wall: Gynecomastia. Musculoskeletal: Degenerative changes of the spine, hips right greater than left, and sacral iliac sayra ints. IMPRESSION: 1. Fibrotic changes at the lung bases. The pattern is not specific for usual interstitial pneumonia. No convincing evidence of a superimposed infiltrate at the lung bases. 2. Trace left pleural effusion and left pleural thickening. This may relate to the underlying chroni c lung disease. 3. No acute intra-abdominal pathology. 4. Evidence of old granulomatous disease. 5. 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 This could be followed with ultrasound. ACT 112: Negative or not required by law. Electronically signed by: Aiden Catalan M.D. 11/20/2019 5:21 PM
[2019-11-20] MEDS ORDERED: SODIUM CHLORIDE 0.9% 1000ML 500 ML IV ONE (17:49)
[2019-11-20 17:51] LABS: INR 3.6 (0.9-1.1); Partial Thromboplastin Time 47.4 Seconds (21.0-31.0)
[2019-11-20] MEDS ORDERED: PANTOprazole 80 MG in DEXTROSE 5% 100 ML IV ONE (18:00)
[2019-11-20] MEDS: PANTOprazole 40 MG in DEXTROSE 5% 100 ML IV SCH ×2 (18:38→22:30)
[2019-11-20 20:11] LABS: Hematocrit (blood only) 29.1 % (42-52); Hemoglobin 9.5 g/dL (14.0-18.0)
[2019-11-20 20:20] LABS: Appearance Urine Clear (Clear); Bilirubin Urine Negative (Negative); Blood Urine Negative (Negative); Color Urine Yellow; Glucose Urine UA Negative (Negative); Ketones Urine Negative (Negative); Leukocyte Esterase Urine Negative (Negative); Nitrite Urine Negative (Negative); Protein Urine Negative (Negative); Specific Gravity Urine 1.029 (1.000-1.030); Urobilinogen Urine Negative (Negative)
[2019-11-20] MEDS ORDERED: ONDANSETRON INJ 2 MG/ML 2 ML VIAL IV PRN (22:07)
[2019-11-20] MEDS: SODIUM CHLORIDE 0.9% 1000ML 1,000 ML IV SCH (22:25)
[2019-11-20 22:37] LABS: Hematocrit (blood only) 27.4 % (42-52); Hemoglobin 9.1 g/dL (14.0-18.0)
--- NOTE | 2019-11-20 23:02 | History & Physical Report ---
Date of Service November 20, 2019 Assessment & Plan (1) Acute GI bleeding: Upper GI bleeding/symptomatic anemia/hypotension- NPO Continue Protonix drip begun in ED. H&H every 6 hours. Brief hypotension with systolic blood pressure into the 80s did respond to IV fluids. Last dose of Xarelto was 24 hours ago, so therefore will not reverse. Holding Entresto, metoprolol succinate, furosemide and spironolactone. Consult gastroenterology. Present on Admission?: Yes (2) Acute hypotension: Responded to IV fluids initially. Follow H&H serially. Present on Admission?: Yes (3) BALDERAS (dyspnea on exertion): Patient's dyspnea on exertion correlates with change in stool pattern. CT does suggest interstitial lung disease associated with granulomatous disease. He also does have a history of prior pulmonary embolism, and may be an element of pulmonary hypertension as well Present on Admission?: Yes (4) custodial (current) use of anticoagulants: Holding Xarelto was noted Present on Admission?: Yes (5) Pulmonary embolism: Holding Xarelto until GI work-up complete Present on Admission?: Yes (6) CAD (coronary artery disease): CAD/nonischemic cardiomyopathy- Following serial troponins. Hold furosemide, metoprolol succinate, Xarelto, Entresto and spironolactone due to n.p.o. status and relative hypotension. Consult his sharepoint application architect Dr. Trejo Present on Admission?: Yes (7) NICM (nonischemic cardiomyopathy): See above Present on Admission?: Yes (8) CKD (chronic kidney disease) stage 3, GFR 30-59 ml/min: Creatinine 1.33 upon admission, with range 1.35-1.42. Potassium 5.[address] on NSS. Calcium gluconate 1 g IV Repeat laboratories in a.m. Present on Admission?: Yes (9) Paroxysmal atrial fibrillation: Anticoagulation with Xarelto being held. Metoprolol succinate will be held while n.p.o. and due to relative hypotension. 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 For now, have nebulizers available to use PRN. May need to get consult from pulmonology. Present on Admission?: Yes (11) Dyslipidemia: Holding atorvastatin Present on Admission?: Yes (12) B12 deficiency anemia: Hold supplement while n.p.o. Present on Admission?: Yes History of Present Illness Chief Complaint: The patient presents to the emergency department with complaint of shortness of breath and a change in stool pattern and color over the past 3 days. Primary Care Provider: Kinga Diaz MD The patient is a 69-year-old male with a past medical history including pulmonary embolism, pulmonary nodule, nonischemic cardiomyopathy, CAD, CKD, B12 deficiency anemia, paroxysmal atrial fibrillation and pneumonia. He presents to the emergency department with 3 days of abdominal discomfort, change in stool, shortness of breath and BALDERAS. He is color blind, so unable to tell it there is blood in stool. Allergies Allergy/AdvReac Type Severity Reaction Status Date / Time diphtheria toxoid,fluid Allergy Severe CONVULSIONS--HORSE Verified 11/20/19 15:48 SERUM BASE tetanus toxoid, adsorbed Allergy Severe CONVULSIONS--HORSE Verified 11/20/19 15:48 SERUM BASE Home Medications Home Medications Medication Instructions Recorded Confirmed Type atorvastatin 40 mg PO PM 10/29/19 11/20/19 History furosemide 20 mg PO QAM 10/29/19 11/20/19 History metoprolol succinate 50 mg PO QAM 10/29/19 11/20/19 History rivaroxaban [Xarelto] 20 mg PO PM 10/29/19 11/20/19 History sacubitril-valsartan [Entresto] 1 tab PO BID 10/29/19 11/20/19 History spironolactone 12.5 mg PO QAM 10/29/19 11/20/19 History cholecalciferol (vitamin D3) 2,000 unit PO DAILY 11/20/19 11/20/19 History [Vitamin D3] cyanocobalamin (vitamin B-12) 1,000 mcg PO DAILY 11/20/19 11/20/19 History [Vitamin B-12] Past Med/Surg History Medical History Atrial fibrillation dx 2016 - follows w/ Dr. Trejo CAD (coronary artery disease) Cardiomegaly Chronic kidney disease Congestive heart failure Deep vein thrombosis RLE - 2016 dx while hospitalized w/ pneumonia Hearing deficit BL [facility] History of cardioversion Hyperlipidemia Hypertension Osteoarthritis Presence of combination internal cardiac defibrillator (ICD) and pacemaker placed 2017 - medtronic - last checked 1 year ago - follows w/ dr. 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: No Beliefs That Will Affect Care: None Current Living Situation: Spouse Other Information That Helps Us Care for You: No Feels Safe at Home: Yes Safety Concerns: Feels Safe At This Time Smoking Status: Former smoker Tobacco Type: cigarettes ; Do You Dip or Chew Tobacco: No ; Second Hand Exposure: No ; Hx Alcohol Use: No Hx Substance Use: No Review of Systems Review of Systems: The patient denies chest pain, palpitations, cough, lower extremity swelling, sore throat, fevers, chills, sweats, nausea, vomiting, blood in urine, dysuria, urinary frequency or urgency, lightheadedness, dizziness, headache, memory loss, loss of consciousness, rash, imbalance, focal or generalized weakness, numbness or tingling in arms or legs, generalized arthralgias or myalgias, back or neck pain, or night sweats. The review of systems is otherwise negative other than for that already noted above, and at least 10 systems have been reviewed. Physical Exam Physical Exam: The patient is awake, alert and oriented 3, looks pale, normocephalic and atraumatic, lying in bed and in no acute distress. HEENT--PERRL, EOMI, mucous membranes and oropharynx dry. Neck--supple. No JVD. No bruits. Thyroid normal, trachea midline, no adenopathy. Heart--normal S1 and S2. No murmurs, rubs or gallops. Lungs--clear bilaterally, no respiratory distress, no accessory muscle use. Abdomen--normal bowel sounds and soft. Nontender. Nondistended. Extremities--no cyanosis or clubbing. No edema. There are good distal pulses b/l. Dermatologic--normal skin turgor, normal color, no abnormal lymph nodes, no rash. Neurologic--cranial nerves II through XII grossly intact. Rheumatologic--normal range of motion. Psychiatric--normal affect. Results & Data Vital Signs (Past 12 Hours) Vital Signs Temp Pulse Pulse Resp BP BP Pulse Ox 11/20/19 21:30 97.7 F 87 18 104/59 L 96 11/20/19 21:16 89 18 98 11/20/19 21:15 89 28 H 99/67 L 100 11/20/19 21:01 84 15 99 11/20/19 21:00 84 26 H 96/70 L 100 11/20/19 20:46 85 27 H 98 11/20/19 20:45 83 23 90/67 L 98 11/20/19 20:31 85 22 98 11/20/19 20:30 85 21 89/64 L 98 11/20/19 20:16 80 18 99 11/20/19 20:15 85 21 100/67 100 11/20/19 20:01 85 23 93 11/20/19 20:00 84 30 H 103/64 96 11/20/19 19:46 82 28 H 99 11/20/19 19:45 84 22 88/65 L 100 11/20/19 19:37 87 22 100/65 100 11/20/19 19:31 85 22 100 11/20/19 19:30 90 22 77/64 L 100 11/20/19 19:16 90 21 97 11/20/19 19:15 86 21 97/61 L 100 11/20/19 19:01 88 20 95 11/20/19 19:00 87 32 H 98/57 L 100 11/20/19 18:46 88 20 97 11/20/19 18:45 87 17 83/58 L 98 11/20/19 18:31 85 24 100 11/20/19 18:30 83 25 H 91/63 L 99 11/20/19 18:16 85 22 97 11/20/19 18:15 87 17 105/66 97 11/20/19 18:01 83 30 H 98 11/20/19 18:00 88 34 H 105/68 100 11/20/19 17:46 88 20 99 11/20/19 17:45 90 25 H 94/64 L 98 11/20/19 17:31 89 28 H 95 11/20/19 17:30 89 28 H 90/66 L 95 11/20/19 17:29 88 29 H 92/60 L 99 11/20/19 17:28 96 H 25 H 11/20/19 16:46 90 32 H 98 11/20/19 16:45 90 32 H 87/64 L 100 11/20/19 16:31 93 H 97 H 21 88/61 L 98 11/20/19 16:30 94 H 24 88/61 L 99 11/20/19 16:16 98 H 25 H 98 11/20/19 16:15 93 H 24 93/59 L 96 11/20/19 16:01 100 H 28 H 99 11/20/19 16:00 97 H 28 H 99/58 L 97 11/20/19 15:46 104 H 21 99 11/20/19 15:45 102 H 22 95/63 L 96 11/20/19 15:31 90 21 97 11/20/19 15:30 92 H 36 H 92/65 L 98 11/20/19 15:25 98 11/20/19 15:23 108 H 92 H 19 84/58 L 84/58 L 96 11/20/19 14:49 97.5 F L 107 H 20 87/57 L 107 H Laboratory Results Laboratory Results WBC 10.39 K/uL (4.8-10.8) 11/20/19 16:00 RBC 3.47 M/uL (4.7-6.1) L 11/20/19 16:00 Hgb 9.1 g/dL (14.0-18.0) L 11/20/19 22:23 Hct 27.4 % (42-52) L 11/20/19 22:23 MCV 95.7 fL (80-100) 11/20/19 16:00 MCH 30.8 pg (25-34) 11/20/19 16:00 MCHC 32.2 g/dL (32-36) 11/20/19 16:00 RDW Std Deviation 48.9 fL (36.4-46.3) H 11/20/19 16:00 RDW Coeff of Yogi 14.1 % (11.5-14.5) 11/20/19 16:00 Plt Count 232 K/uL (130-400) 11/20/19 16:00 MPV 11.1 fL (7.4-10.4) H 11/20/19 16:00 Immature Gran % (Auto) 0.2 % 11/20/19 16:00 Neut % (Auto) 87.9 % 11/20/19 16:00 Lymph % (Auto) 7.6 % 11/20/19 16:00 [place] % (Auto) 4.1 % 11/20/19 16:00 Eos % (Auto) 0.1 % 11/20/19 16:00 Baso % (Auto) 0.1 % 11/20/19 16:00 Immature Gran # (Auto) 0.02 K/uL (0.00-0.02) 11/20/19 16:00 Neut # (Auto) 9.13 K/uL (1.4-6.5) H 11/20/19 16:00 Lymph # (Auto) 0.79 K/uL (1.2-3.4) L 11/20/19 16:00 [place] # (Auto) 0.43 K/uL (0.11-0.59) 11/20/19 16:00 Eos # (Auto) 0.01 K/uL (0-0.5) 11/20/19 16:00 Baso # (Auto) 0.01 K/uL (0-0.2) 11/20/19 16:00 PT 33.6 Seconds (9.0-12.0) H 11/20/19 16:46 INR 3.6 (0.9-1.1) H 11/20/19 16:46 APTT 47.4 Seconds (21.0-31.0) H* 11/20/19 16:46 PTT Ratio 1.7 11/20/19 16:46 Sodium 136 mmol/L (136-145) 11/20/19 16:00 Potassium 5.7 mmol/L (3.5-5.1) H 11/20/19 16:00 Chloride 107 mmol/L (98-107) 11/20/19 16:00 Carbon Dioxide 26 mmol/L (21-32) 11/20/19 16:00 Anion Gap 3.0 (3-11) 11/20/19 16:00 BUN 64 mg/dl (7-18) H 11/20/19 16:00 Creatinine 1.33 mg/dl (0.6-1.4) 11/20/19 16:00 Est Cr Clr Drug Dosing Not Reportable 11/20/19 16:00 Est GFR ( Amer) 61.9 11/20/19 16:00 Est GFR (Non-Af Amer) 53.4 11/20/19 16:00 BUN/Creatinine Ratio 48.3 (10-20) H 11/20/19 16:00 Glucose 120 mg/dl (70-99) H 11/20/19 16:00 Lactate 1.2 mmol/L (0.4-2.0) 11/20/19 16:00 Calcium 9.2 mg/dl (8.5-10.1) 11/20/19 16:00 Magnesium 2.2 mg/dl (1.8-2.4) 11/20/19 16:00 Total Bilirubin 0.4 mg/dl (0.2-1) 11/20/19 16:00 AST 9 U/L (15-37) L 11/20/19 16:00 ALT 19 U/L (12-78) 11/20/19 16:00 Alkaline Phosphatase 89 U/L (45-117) 11/20/19 16:00 Troponin I < 0.015 ng/ml (0-0.045) 11/20/19 16:00 Total Protein 8.1 gm/dl (6.4-8.2) 11/20/19 16:00 Albumin 3.7 gm/dl (3.4-5.0) 11/20/19 16:00 Globulin 4.4 gm/dl (2.5-4.0) H 11/20/19 16:00 Albumin/Globulin Ratio 0.8 (0.9-2) L 11/20/19 16:00 Urine Color Yellow 11/20/19 20:10 Urine Appearance Clear (Clear) 11/20/19 20:10 Urine pH 5.0 (4.5-7.5) 11/20/19 20:10 Ur Specific [place] 1.029 (1.000-1.030) 11/20/19 20:10 Urine Protein Negative (Negative) 11/20/19 20:10 Urine Glucose (UA) Negative (Negative) 11/20/19 20:10 Urine Ketones Negative (Negative) 11/20/19 20:10 Urine Blood Negative (Negative) 11/20/19 20:10 Urine Nitrite Negative (Negative) 11/20/19 20:10 Urine Bilirubin Negative (Negative) 11/20/19 20:10 Urine Urobilinogen Negative (Negative) 11/20/19 20:10 Ur Leukocyte Esterase Negative (Negative) 11/20/19 20:10 Blood Type O Positive 11/20/19 16:00 Blood Type Recheck O Positive 11/20/19 20:04 Antibody Screen NEGATIVE 11/20/19 16:00 Crossmatch See Detail 11/20/19 16:00 Diagnostic Findings [place], [place] [phone] XRay Report Patient: CRISTOBAL OVIEDO JRAdmit Date: 11/20/19 MR#: [id number]: [id number] Acct ID:[id number]: [address] Date: 1950[facility] Zip: [place] [address] Age: 69Location: ED Sex: M Room/Bed: Att Phy:Diagnosis: SOB,DIARRHEA Ellen Phy: Kinga Diaz, MDService Date: 11/20/19 Fam Phy:Interpreting Phy: Ramiro Ponce MD Admit Phy: Ordering Phy: Nate Jordan M.D. cc: ~ XR chest 1V portable CLINICAL HISTORY: SEPSIS COMPARISON STUDY: Chest CT February 06, 2017. Chest radiograph January 26, 2018. FINDINGS: 2-lead left subclavian pacer/AICD is in place. There is no pneumothorax or pleural effusion. There is no consolidation. Interstitial thickening within the lungs has likely slightly increased. This suggests interstitial lung disease. Calcified right hilar and mediastinal lymph nodes are incidentally noted. Cardiac mediastinal silhouette is stable. IMPRESSION: 1. No acute cardiopulmonary findings. 2. Slight interval increase in interstitial thickening suggestive of int erstitial lung disease. ACT 112: Negative or not required by law. Electronically signed by: Ramiro Ponce M.D. 11/20/2019 3:53 PM Dictated: 11/20/19 1550 Transcribed: 11/20/19 1550 [place], [place] [phone] CT Scan Report Patient: CRISTOBAL OVIEDO JRAdmit Date: 11/20/19 MR#: [id number] Acct ID:[id number]: [address] Date: 1950City Zip: [place] [address] Age: 69Location: ED Sex: M Room/Bed: Att Phy:Diagnosis: SOB,DIARRHEA Ellen Phy: Kinga Diaz, MDService Date: 11/20/19 Fam Phy:Interpreting Phy: Aiden Catalan MD Admit Phy: Ordering Phy: Nate Jordan M.D. cc: ~ CT abd pelvis IV con only CLINICAL HISTORY: 69 years-old Male presenting with weakness. TECHNIQUE: Multidetector CT of the abdomen and pelvis was performed after the administration of intravenous contrast. IV contrast: 116 mL of Optiray 320. A One or more dose lowering techniques were used consistent with the principles of ALARA (as low as reasonably achievable), including automatic exposure control, mA or kV adjustment to individual patient size, and/or use of iterative reconstruction. COMPARISON: None. CT DOSE (mGy.cm): The estimated cumulative dose is 1710.29. FINDINGS: Radio Tower Technician topogram: Implanted cardiac defibrillator leads to the right atrium and right ventricular apex. Lung bases: Normal heart size. Coronary artery calcification. Trace left pleural effusion and pleural thickening. Bibasilar reticular opacities greater on the right. Bronchiectasis also evident, greater on the right. Liver: Normal morphology. No liver lesion. Patent hepatic vasculature. Biliary: No intrahepatic or extrahepatic biliary ductal dilatation. Normal gallbladder. Pancreas: Mild parenchymal atrophy. Spleen: Granulomatous disease suggested by the presence of punctate calcifications in the parenchyma. Adrenal glands: Normal. Kidneys and ureters: Simple cyst at the upper pole the right kidney. Smaller simple cysts in the left kidney. No nephrolithiasis or hydronephrosis. Trace urothelial thickening may be present bilaterally. Bladder: Normal. Pelvic organs: Prostate and seminal vesicles normal. Bowel: Normal. No bowel obstruction. Peritoneal cavity: No free fluid or intraperitoneal gas. Lymph nodes: No enlarged lymph nodes in the abdomen or pelvis. Vasculature: Atherosclerosis of the abdominal aorta with mild ectasia and infrarenal portion measuring up to 2.9 cm. IVC patent. Abdominal wall: Gynecomastia. Musculoskeletal: Degenerative changes of the spine, hips right greater than lef t, and sacral iliac joints. IMPRESSION: 1. Fibrotic changes at the lung bases. The pattern is not specific for usual interstitial pneumonia. No convincing evidence of a superimposed infiltrate at the lung bases. 2. Trace left pleural effusion and left pleural thickening. This may relate to the underlying chronic lung disease. 3. No acute intra-abdominal pathology. 4. Evidence of old granulomatous disease. 5. 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 This could be followed with ultrasound. ACT 112: Negative or not required by law. Electronically signed by: Aiden Catalan M.D. 11/20/2019 5:21 PM Dictated: 11/20/191714 Transcribed: 11/20/191714 [place], [place] [phone] CT Scan Report Patient: CRISTOBAL OVIEDO JRAdmit Date: 11/20/19 MR#: [id number]: [id number] Acct ID:[id number]: [address] Date: 1950[facility] Zip: [place] [address] Age: 69Location: ED Sex: M Room/Bed: Att Phy:Diagnosis: SOB,DIARRHEA Ellen Phy: Kinga Diaz, JAZMINervice Date: 11/20/19 Fam Phy:Interpreting Phy: Aiden Catalan MD Admit Phy: Ordering Phy: Nate Jordan M.D. cc: ~ CT angio chest PE protocol CLINICAL HISTORY: 69 years-old Male presenting with shortness of breath, weakness, clinical concern for pulmonary embolus. TECHNIQUE: Multidetector CT angiography of the chest was performed after administration of intravenous contrast. 3-D volumetric and/or maximum intensity projection (MIP) images were subsequently reconstructed for review. IV contrast: 116 mL of Optiray 320. One or more dose lowering techniques were used consistent with the principles of ALARA (as low as reasonably achievable), including automatic exposure control, mA or kV adjustment to individual patient size, and/or use of iterative reconstruction. COMPARISON: Noncontrast chest CT 07/2017. CT DOSE (mGy.cm): The estimated cumulative dose is 1710.29 mGy.cm. FINDINGS: Radio Tower Technician topogram: Left subclavian implanted cardiac defibrillator with leads to the right atrium and right ventricular apex. Pulmonary vasculature: The study is adequate for assessment of the pulmonary vascular tree. No filling defect within the pulmonary arteries to suggest embolus. Main pulmonary artery is not enlarged. No flattening of the interventricular septum. No intracardiac filling defect. No reflux of contrast into the hepatic veins. Remaining chest: Soft tissues: Normal thyroid and thoracic inlet. Gynecomastia. Calcified mediastinal and right hilar lymph nodes indicate a history of granulomatous disease. Atherosclerosis of the aorta. Normal heart size. Coronary artery calcification. Trace left pleural effusion. Pleural thickening is also suspected. This is new from prior. Right renal cysts. Calcifications in the spleen also indicate a history of granulomatous disease. Lungs and airways: Mild bronchial wall thickening in the lower lobes greater on the right. There is also right lower lobe bronchiectasis. Subpleural reticular opacities with a dependent predominance, right greater than left. No evidence of a stacked subpleural cystic pattern. Reticulonodular subpleural opacities with an apical predominance, possibly pleural parenchymal scarring. All these changes have slightly progressed from prior. Central airways patent. Pulmonary arteries are not significantly enlarged relative to adjacent bronchi. No interlobular septal thickening. Calcified granuloma noted. Musculoskeletal: Degenerative changes of the spine. Degenerative changes of the left glenohumeral joint. IMPRESSION: 1. Slight interval progression of the underlying chronic lung disease with right basilar fibrotic change greatest in the right lower lobe. The appearance is not typical for usual interstitial pneumonia pattern. Differential considerations include aspiration/chronic reflux among other possibilities. 2. No superimposed infiltrate to suggest pneumonia. No suspicious nodule. 3. No evidence of pulmonary embolus. ACT 112: Negative or not required by law. Electronically signed by: Aiden Catalan M.D. 11/20/2019 5:15 PM Dictated: 11/20/191706 Transcribed: 11/20/191706 Code Status & VTE Plan Code Status Full code VTE Prophylaxis Plan VTE Prophylaxis will be ordered: Yes PG Care Time/CCT Total # of Minutes Spent Total Time Spent with Patient: Total time spent is greater than 50% in c oordination of care (as documented) at patient's floor/unit and/or counseling patient:
[2019-11-21] MEDS ORDERED: CALCIUM GLUCONATE 10% 1,000 MG in SODIUM CHLORIDE 0.9% 50 ML IV STA (03:05)
[2019-11-21] MEDS ORDERED: ALBUT/IPRATROP 3MG/0.5MG NEB 3 ML VIAL NEB PRN (03:07)
[2019-11-21] MEDS: PANTOprazole 40 MG in DEXTROSE 5% 100 ML IV SCH ×4 (03:20→21:15)
[2019-11-21 04:20] LABS: Basophils # (auto) 0.02 K/uL (0-0.2); Basophils % (auto) 0.2 %; Eosinophils # (auto) 0.17 K/uL (0-0.5); Eosinophils % (auto) 1.9 %; Hematocrit (blood only) 26.4 % (42-52); Hemoglobin 8.8 g/dL (14.0-18.0); Immature Granulocytes # (auto) 0.02 K/uL (0.00-0.02); Immature Granulocytes % (auto) 0.2 %; Lymphocytes # (auto) 1.79 K/uL (1.2-3.4); Lymphocytes % (auto) 20.5 %; Mean Corpuscular Hemoglobin 31.4 pg (25-34); Mean Corpuscular Hgb Conc 33.3 g/dL (32-36); Mean Corpuscular Volume 94.3 fL (80-100); Mean Platelet Volume 10.8 fL (7.4-10.4); Monocytes # (auto) 0.76 K/uL (0.11-0.59); Monocytes % (auto) 8.7 %; Neutrophils # (auto) 5.96 K/uL (1.4-6.5); Neutrophils % (auto) 68.5 %; Platelet Count 199 K/uL (130-400); RDW Coefficient of Variation 14.2 % (11.5-14.5); RDW Standard Deviation 49.2 fL (36.4-46.3); White Blood Count 8.72 K/uL (4.8-10.8)
[2019-11-21 04:43] LABS: Albumin Level 3.2 gm/dl (3.4-5.0); BUN Creatinine Ratio 42.2 (10-20); Blood Urea Nitrogen 55 mg/dl (7-18); Calcium 8.8 mg/dl (8.5-10.1); Carbon Dioxide 26 mmol/L (21-32); Chloride 110 mmol/L (98-107); Creatinine Clr Calc Pharmacy 63.2 ml/min; Est GFR (Non-African American) 54.4; Glucose 94 mg/dl (70-99); Magnesium 2.1 mg/dl (1.8-2.4); Potassium 4.2 mmol/L (3.5-5.1); Sodium 139 mmol/L (136-145)
[2019-11-21 04:44] LABS: Phosphorus 3.2 mg/dl (2.5-4.9); Troponin I < 0.015 ng/ml (0-0.045)
--- NOTE | 2019-11-21 08:29 | Hospitalist Progress Note ---
Date of Service November 21, 2019 Assessment & Plan (1) Acute GI bleeding: Hb is 8.7 this morning, up slightly at 8.9 BP running low in the 80's systolic but patient has no symptoms, says his BP is normally low normal discussed with cardiology, will give one unit PRBC asked RN to stop fluids this morning EGD on 11/21 with duodenal ulcer, non-bleeding, no stigmata of recent bleeding plan for colonoscopy tomorrow INR is down to 1.1, continue to hold Xarelto while work up for bleeding is co mpleted remain on PCU due to heart history and low BP (2) Duodenal ulcer: no stigmata of recent bleeding Protonix 40mg BID, check stool for H pylori will need follow up EGD in 2 months to document healing (3) Acute hypotension: stop fluids due to h/o systolic heart failure give one unit of PRBC BP normally in the 90's systolic per patient, he has no symptoms this does not represent hemorrhagic shock (4) BALDERAS (dyspnea on exertion): multifactorial with chronic systolic heart failure, granulomatous lung changes but most likely cause of acute change would be anemia dyspnea correlated to blood loss and melena should improve with correction of Hb, will give one unit of PRBC today (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 status and relative hypotension. will continue the Toprol (8) NICM (nonischemic cardiomyopathy): See above (9) CKD (chronic kidney disease) stage 3, GFR 30-59 ml/min: Creatinine 1.33 upon admission, with range 1.35-1.42. K is down to normal at 4.2 Cr is 1.3 today, making adequate urine continue to hold Lasix, Spironolactone with plans for colonoscopy tomorrow and volume loss expected with bowel prep (10) Paroxysmal atrial fibrillation: Anticoagulation with Xarelto being held. 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 For now, have nebulizers available to use PRN. no need for pulmonary consult. (12) Dyslipidemia: Holding atorvastatin (13) B12 deficiency anemia: Hold supplement while n.p.o. Subjective patient feels fine this morning, no chest pain, no dyspnea at rest says that he noticed extreme BALDERAS that started three days ago and correlated with some darker stools no history of PUD, GI bleeding he has been compliant with his heart failure medications, has not noticed any leg edema, he says he does not weigh himself every day reviewed labs, Hb down to 8.8 from 10.7 on admission BP running low, in the 80's systolic but HR is in 80-90's patient says that his blood pressure is always low normal or low, does not feel any different we discussed plan for EGD to identify source of bleeding, he agreed with this plan EGD showed a non-bleeding duodenal ulcer, no stigmata of recent bleeding GI recommends Protonix BID, repeat EGD in 2 months plan for colonoscopy tomorrow discussed with Dr. Angelo, he would like to give one unit of PRBC due to cardiomyopathy, will order no other recommendations except to continue metoprolol Review of Systems Review of Systems: All systems reviewed & are unremarkable except as noted in HPI & below Constitutional: + fatigue and + weakness Respiratory: + dyspnea on exertion; no dyspnea Cardiovascular: no chest pain and no edema Gastrointestinal: + melena; no abdominal pain, no nausea, no vomiting, no constipation and no diarrhea/loose stools Physical Exam Constitutional: WD/WN, vitals as above Eyes: PERRL, conjunctivae normal, anicteric sclerae ENMT: external ear and nose normal, oropharynx normal Neck: trachea midline, no thyromegaly Respiratory: normal respiratory effort, lungs clear to auscultation Cardiovascular: RRR, no murmur, no edema Gastrointestinal (Abdomen): normal bowel sounds, soft, nontender, no hepatosplenomegaly Musculoskeletal: no cyanosis or clubbing, extremities motor strength 5/5 Skin: no rashes, warm and dry Neurologic: patellar DTR's 2+ bilat, sensation intact and PERRL, EOMI, accommodation nl, no face palsy, no dysarthria Psychiatric: A+Ox3, euthymic affect Lymphatic: no cervical or axillary lymphadenopathy Results & Data Vital Signs (Past 12 Hours) Vital Signs Temp Pulse Pulse Resp BP BP BP 11/21/19 07:35 36.5 C 83 18 87/58 L 11/21/19 04:00 36.4 C L 82 18 86/55 L 11/20/19 23:43 37.0 C 82 18 81/54 L 80/58 L 11/20/19 21:30 36.5 C 87 18 104/59 L 11/20/19 21:16 89 18 11/20/19 21:15 89 28 H 99/67 L 11/20/19 21:01 84 15 11/20/19 21:00 84 26 H 96/70 L 11/20/19 20:46 85 27 H 11/20/19 20:45 83 23 90/67 L 11/20/19 20:31 85 22 11/20/19 20:30 85 21 89/64 L Pulse Ox 11/21/19 07:35 96 11/21/19 04:00 95 11/20/19 23:43 95 11/20/19 21:30 96 11/20/19 21:16 98 11/20/19 21:15 100 11/20/19 21:01 99 11/20/19 21:00 100 11/20/19 20:46 98 11/20/19 20:45 98 11/20/19 20:31 98 11/20/19 20:30 98 Laboratory Results Laboratory Results - last 24 hr 11/20/19 11/20/19 11/20/19 16:00 16:00 16:00 WBC 10.39 RBC 3.47 L Hgb 10.7 L Hct 33.2 L MCV 95.7 MCH 30.8 MCHC 32.2 RDW Std Deviation 48.9 H RDW Coeff of Yogi 14.1 Plt Count 232 MPV 11.1 H Immature Gran % (Auto) 0.2 Neut % (Auto) 87.9 Lymph % (Auto) 7.6 [place] % (Auto) 4.1 Eos % (Auto) 0.1 Baso % (Auto) 0.1 Immature Gran # (Auto) 0.02 Neut # (Auto) 9.13 H Lymph # (Auto) 0.79 L [place] # (Auto) 0.43 Eos # (Auto) 0.01 Baso # (Auto) 0.01 PT Cancelled INR Cancelled APTT Cancelled PTT Ratio Cancelled Sodium 136 Potassium 5.7 H Chloride 107 Carbon Dioxide 26 Anion Gap 3.0 BUN 64 H Creatinine 1.33 Est Cr Clr Drug Dosing Not Reportable Est GFR ( Amer) 61.9 Est GFR (Non-Af Amer) 53.4 BUN/Creatinine Ratio 48.3 H Glucose 120 H Lactate Calcium 9.2 Phosphorus Magnesium 2.2 Total Bilirubin 0.4 AST 9 L ALT 19 Alkaline Phosphatase 89 Troponin I < 0.015 Total Protein 8.1 Albumin 3.7 Globulin 4.4 H Albumin/Globulin Ratio 0.8 L Urine Color Urine Appearance Urine pH Ur Specific [place] Urine Protein Urine Glucose (UA) Urine Ketones Urine Blood Urine Nitrite Urine Bilirubin Urine Urobilinogen Ur Leukocyte Esterase Blood Type Blood Type Recheck Antibody Screen Crossmatch 11/20/19 11/20/19 11/20/19 16:00 16:00 16:46 WBC RBC Hgb Hct MCV MCH MCHC RDW Std Deviation RDW Coeff of Yogi Plt Count MPV Immature Gran % (Auto) Neut % (Auto) Lymph % (Auto) [place] % (Auto) Eos % (Auto) Baso % (Auto) Immature Gran # (Auto) Neut # (Auto) Lymph # (Auto) [place] # (Auto) Eos # (Auto) Baso # (Auto) PT 33.6 H INR 3.6 H APTT 47.4 H* PTT Ratio 1.7 Sodium Potassium Chloride Carbon Dioxide Anion Gap BUN Creatinine Est Cr Clr Drug Dosing Est GFR ( Amer) Est GFR (Non-Af Amer) BUN/Creatinine Ratio Glucose Lactate 1.2 Calcium Phosphorus Magnesium Total Bilirubin AST ALT Alkaline Phosphatase Troponin I Total Protein Albumin Globulin Albumin/Globulin Ratio Urine Color Urine Appearance Urine pH Ur Specific [place] Urine Protein Urine Glucose (UA) Urine Ketones Urine Blood Urine Nitrite Urine Bilirubin Urine Urobilinogen Ur Leukocyte Esterase Blood Type O Positive Blood Type Recheck Antibody Screen NEGATIVE Crossmatch See Detail 11/20/19 11/20/19 11/20/19 20:04 20:04 20:10 WBC RBC Hgb 9.5 L Hct 29.1 L MCV MCH MCHC RDW Std Deviation RDW Coeff of Yogi Plt Count MPV Immature Gran % (Auto) Neut % (Auto) Lymph % (Auto) [place] % (Auto) Eos % (Auto) Baso % (Auto) Immature Gran # (Auto) Neut # (Auto) Lymph # (Auto) [place] # (Auto) Eos # (Auto) Baso # (Auto) PT INR APTT PTT Ratio Sodium Potassium Chloride Carbon Dioxide Anion Gap BUN Creatinine Est Cr Clr Drug Dosing Est GFR ( Amer) Est GFR (Non-Af Amer) BUN/Creatinine Ratio Glucose Lactate Calcium Phosphorus Magnesium Total Bilirubin AST ALT Alkaline Phosphatase Troponin I Total Protein Albumin Globulin Albumin/Globulin Ratio Urine Color Yellow Urine Appearance Clear Urine pH 5.0 Ur Specific [place] 1.029 Urine Protein Negative Urine Glucose (UA) Negative Urine Ketones Negative Urine Blood Negative Urine Nitrite Negative Urine Bilirubin Negative Urine Urobilinogen Negative Ur Leukocyte Esterase Negative Blood Type Blood Type Recheck O Positive Antibody Screen Crossmatch 11/20/19 11/21/19 11/21/19 22:23 03:46 03:46 WBC 8.72 RBC 2.80 L Hgb 9.1 L 8.8 L Hct 27.4 L 26.4 L MCV 94.3 MCH 31.4 MCHC 33.3 RDW Std Deviation 49.2 H RDW Coeff of Yogi 14.2 Plt Count 199 MPV 10.8 H Immature Gran % (Auto) 0.2 Neut % (Auto) 68.5 Lymph % (Auto) 20.5 [place] % (Auto) 8.7 Eos % (Auto) 1.9 Baso % (Auto) 0.2 Immature Gran # (Auto) 0.02 Neut # (Auto) 5.96 Lymph # (Auto) 1.79 [place] # (Auto) 0.76 H Eos # (Auto) 0.17 Baso # (Auto) 0.02 PT INR APTT PTT Ratio Sodium 139 Potassium 4.2 D Chloride 110 H Carbon Dioxide 26 Anion Gap 3.0 BUN 55 H Creatinine 1.31 Est Cr Clr Drug Dosing 63.2 Est GFR ( Amer) 63.0 Est GFR (Non-Af Amer) 54.4 BUN/Creatinine Ratio 42.2 H Glucose 94 Lactate Calcium 8.8 Phosphorus 3.2 Magnesium 2.1 Total Bilirubin AST ALT Alkaline Phosphatase Troponin I < 0.015 Total Protein Albumin 3.2 L Globulin Albumin/Globulin Ratio Urine Color Urine Appearance Urine pH Ur Specific [place] Urine Protein Urine Glucose (UA) Urine Ketones Urine Blood Urine Nitrite Urine Bilirubin Urine Urobilinogen Ur Leukocyte Esterase Blood Type Blood Type Recheck Antibody Screen Crossmatch 11/21/19 11/21/19 11/21/19 08:41 08:41 11:11 WBC RBC Hgb 8.9 L Hct 27.1 L MCV MCH MCHC RDW Std Deviation RDW Coeff of Yogi Plt Count MPV Immature Gran % (Auto) Neut % (Auto) Lymph % (Auto) [place] % (Auto) Eos % (Auto) Baso % (Auto) Immature Gran # (Auto) Neut # (Auto) Lymph # (Auto) [place] # (Auto) Eos # (Auto) Baso # (Auto) PT 11.3 INR 1.1 APTT PTT Ratio Sodium Potassium Chloride Carbon Dioxide Anion Gap BUN Creatinine Est Cr Clr Drug Dosing Est GFR ( Amer) Est GFR (Non-Af Amer) BUN/Creatinine Ratio Glucose Lactate Calcium Phosphorus Magnesium Total Bilirubin AST ALT Alkaline Phosphatase Troponin I < 0.015 Total Protein Albumin Globulin Albumin/Globulin Ratio Urine Color Urine Appearance Urine pH Ur Specific [place] Urine Protein Urine Glucose (UA) Urine Ketones Urine Blood Urine Nitrite Urine Bilirubin Urine Urobilinogen Ur Leukocyte Esterase Blood Type Blood Type Recheck Antibody Screen Crossmatch Medications Administered Current Inpatient Medications Albuterol (Duoneb) 3 ml NEB Q2H PRN PRN Reason: dyspnea Stop: 12/21/19 03:06 Atropine Sulfate (Atropine Sulfate) 0.5 mg IV Q1M PRN PRN Reason: PACU Use-HR<40 &/or Bradycardi Stop: 11/21/19 16:47 Ephedrine Sulfate (Ephedrine Sulfate) 5 mg IV Q5M PRN PRN Reason: PACU Use Only-SBP<90 mmHg Stop: 11/21/19 16:47 Pantoprazole Sodium 40 mg/ (Dextrose) 100 mls @ 20 mls/hr IV Q5H AMBER Stop: 12/20/19 18:14 Last Infusion: 11/21/19 11:29 Dose: 0 mls/hr Documented by: Sodium Chloride (Nss) 250 mls @ 15 mls/hr IV .[id number] PRN PRN Reason: For Transfusion Stop: 11/21/19 20:35 Ioversol (Optiray 320 125ml) 116 ml IV ONCE PRN PRN Reason: Interaction Checking Stop: 11/24/19 16:54 Last Admin: 11/20/19 16:56 Dose: 116 ml Documented by: Metoprolol Succinate (Toprol Xl) 25 mg PO QAM AMBER Stop: 12/21/19 10:59 Last Admin: 11/21/19 11:29 Dose: Not Given Documented by: Ondansetron HCl (Zofran) 4 mg IV Q6H PRN PRN Reason: Nausea Stop: 12/20/19 22:06 Polyethylene Glycol/Electrolytes (Golytely) 16 dose PO TODAY@1400 AMBER Stop: 11/21/19 23:59 PG Care Time/CCT Total # of Minutes Spent Total Time Spent with Patient: Total time spent is greater than 50% in business services coordinator rdination of care (as documented) at patient's floor/unit and/or counseling patient: Coding Level of Care Code 88530 Subseq Hosp Care Lvl 3 Diagnoses Acute GI bleeding K92.2 Duodenal ulcer K26.9 Acute hypotension I95.9 BALDERAS (dyspnea on exertion) R06.09 care home (current) use of anticoagulants Z79.01 Pulmonary embolism I26.99 CAD (coronary artery disease) I25.10 NICM (nonischemic cardiomyopathy) I42.8 CKD (chronic kidney disease) stage 3, GFR 30-59 ml/min N18.3 Paroxysmal atrial fibrillation I48.0 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
[2019-11-21 08:59] LABS: Hematocrit (blood only) 27.1 % (42-52); Hemoglobin 8.9 g/dL (14.0-18.0)
[2019-11-21 09:09] LABS: INR 1.1 (0.9-1.1); Prothrombin Time 11.3 Seconds (9.0-12.0)
--- NOTE | 2019-11-21 09:20 | Gastrointestinal Consultation ---
Date of Consultation November 21, 2019 Assessment & Plan (1) Acute GI bleedin69 year old male pulmonary embolism, pulmonary nodule, nonischemic cardiomyopathy, CAD, CKD, B12 deficiency anemia, paroxysmal atrial fibrillation on xarelto last dose 48 hours ago admitted w/ symptomatic anemia, HGB 8.9 w/ BUN elevation of 55 w/ melanotic stools on rectal examin NPO IV PPI bolus and drip EGD today No NSAIDs Hold AC Additional recommendations pending EGD Trend HGB Transfuse HGB < 8 Document all stools Thank you for allowing us to participate in the care of this patient. Please call with any acute changes, questions or concerns. Please see addendum below with additional recommendation from my supervising physician. Present on Admission?: Yes Supervising Physician Co-Signing Physician Notes I performed a history and physical examination of the patient, including specifically on physical exam - soft, nontender abdomen. I have discussed the patient's management with Rachel. Please refer to the nurse practitioner's note for the documented findings and plan of care. patient with rectal bleeding, need to r/o UGIB by EGD today. If negative, then colonoscopy tomorrow. History of Present Illness Reason for Consultation: anemia, concern for GIB Requesting Physician: Ja Attending Physician: Riley Peres, DO History of Present Illness 69-year-old male with a past medical history including pulmonary embolism, pulmonary nodule, nonischemic cardiomyopathy, CAD, CKD, B12 deficiency anemia, paroxysmal atrial fibrillation on xarelto last dose 48 hours ago who presents with increased stool frequency, progressive SOB. Admitted through the ED w/ heme + dark stools. He was started on IV PPI and kept NPO. This AM pt reports persistent SOB. No CP. Denies lightheadedness or dizziness. Is color blind and unsure about the color of his stools. Suggest since Monday he has had decreased appetite, SOB and increased stool frequency. Last BM was Monday. No fever, chills, CP, SOB. NSAIDs none ETOH none AC xarelto EGD: none Colonoscopy: years ago through the [place] Allergies Allergy/AdvReac Type Severity Reaction Status Date / Time diphtheria toxoid,fluid Allergy Severe CONVULSIONS--HORSE Verified 11/21/19 11:39 SERUM BASE tetanus toxoid, adsorbed Allergy Severe CONVULSIONS--HORSE Verified 11/21/19 11:39 SERUM BASE Home Medications Home Medications Medication Instructions Recorded Confirmed Type atorvastatin 40 mg PO PM 10/29/19 11/20/19 History furosemide 20 mg PO QAM 10/29/19 11/20/19 History metoprolol succinate 50 mg PO QAM 10/29/19 11/20/19 History rivaroxaban [Xarelto] 20 mg PO PM 10/29/19 11/20/19 History sacubitril-valsartan [Entresto] 1 tab PO BID 10/29/19 11/20/19 History spironolactone 12.5 mg PO QAM 10/29/19 11/20/19 History cholecalciferol (vitamin D3) 2,000 unit PO DAILY 11/20/19 11/20/19 History [Vitamin D3] cyanocobalamin (vitamin B-12) 1,000 mcg PO DAILY 11/20/19 11/20/19 History [Vitamin B-12] Patient History Medical History Atrial fibrillation dx 2016 - follows w/ Dr. 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 yeh Pulmonary embolism 2016 - dx while hospitalized w/ pneumonia - on xarelto Surgical History History of appendectomy History of cardiac catheterization 2016 - [place] - no stents History of carpal tunnel release of both wrists History of cataract surgery History of colonoscopy History of evacuation of hematoma LLE History of shoulder surgery Left History of tonsillectomy Family History Mother Family history of diabetes mellitus Social History Preferred Language: Nepalese Communication Ability: Effective Music Instructor Required: No Beliefs That Will Affect Care: None Current Living Situation: Spouse Other Information That Helps Us Care for You: No Feels Safe at Home: Yes Safety Concerns: Feels Safe At This Time Smoking Status: Former smoker Tobacco Type: cigarettes ; Do You Dip or Chew Tobacco: No ; Second Hand Exposure: No ; Hx Alcohol Use: No Hx Substance Use: No Review of Systems Constitutional: no fever and no chills Respiratory: no cough and no dyspnea Cardiovascular: no chest pain and no dyspnea Gastrointestinal: + change in bowel habits and + diarrhea/loose stools; no abdominal pain Physical Exam Constitutional: no acute distress and not ill appearing Neck: trachea midline Respiratory: normal respiratory effort Cardiovascular: Rate/Rhythm: regular rate and regular rhythm + pacemaker Gastrointestinal (Abdomen): normal bowel sounds, soft, nontender, no hepatosplenomegaly Rectal exam monitored by REENA Dent w/ Jaquan Sneed. External examination does show some melanatoic stool. Internal exam w/ malini colored stools. Results & Data Vital Signs (Past 12 Hours) Vital Signs Temp Pulse Resp BP BP Pulse Ox 11/21/19 07:35 36.5 C 83 18 87/58 L 96 11/21/19 04:00 36.4 C L 82 18 86/55 L 95 11/20/19 23:43 37.0 C 82 18 81/54 L 80/58 L 95 11/20/19 21:30 36.5 C 87 18 104/59 L 96 Laboratory Results 11/21/19 11/21/19 11/21/19 Range/Units 08:41 08:41 03:46 WBC (4.8-10.8) K/uL RBC (4.7-6.1) M/uL Hgb 8.9 L (14.0-18.0) g/dL Hct 27.1 L (42-52) % MCV (80-100) fL MCH (25-34) pg MCHC (32-36) g/dL RDW Std Deviation (36.4-46.3) fL RDW Coeff of Yogi (11.5-14.5) % Plt Count (130-400) K/uL MPV (7.4-10.4) fL Immature Gran % (Auto) % Neut % (Auto) % Lymph % (Auto) % [place] % (Auto) % Eos % (Auto) % Baso % (Auto) % Immature Gran # (Auto) (0.00-0.02) K/uL Neut # (Auto) (1.4-6.5) K/uL Lymph # (Auto) (1.2-3.4) K/uL [place] # (Auto) (0.11-0.59) K/uL Eos # (Auto) (0-0.5) K/uL Baso # (Auto) (0-0.2) K/uL PT 11.3 INR 1.1 APTT PTT Ratio Sodium 139 (136-145) mmol/L Potassium 4.2 D (3.5-5.1) mmol/L Chloride 110 H (98-107) mmol/L Carbon Dioxide 26 (21-32) mmol/L Anion Gap 3.0 (3-11) BUN 55 H (7-18) mg/dl Creatinine 1.31 (0.6-1.4) mg/dl Est Cr Clr Drug Dosing 63.2 Est GFR ( Amer) 63.0 Est GFR (Non-Af Amer) 54.4 BUN/Creatinine Ratio 42.2 H (10-20) Glucose 94 (70-99) mg/dl Lactate (0.4-2.0) mmol/L Calcium 8.8 (8.5-10.1) mg/dl Phosphorus 3.2 (2.5-4.9) mg/dl Magnesium 2.1 (1.8-2.4) mg/dl Total Bilirubin (0.2-1) mg/dl AST (15-37) U/L ALT (12-78) U/L Alkaline Phosphatase (45-117) U/L Troponin I < 0.015 (0-0.045) ng/ml Total Protein (6.4-8.2) gm/dl Albumin 3.2 L (3.4-5.0) gm/dl Globulin (2.5-4.0) gm/dl Albumin/Globulin Ratio (0.9-2) Urine Color Urine Appearance (Clear) Urine pH (4.5-7.5) Ur Specific [place] (1.000-1.030) Urine Protein (Negative) Urine Glucose (UA) (Negative) Urine Ketones (Negative) Urine Blood (Negative) Urine Nitrite (Negative) Urine Bilirubin (Negative) Urine Urobilinogen (Negative) Ur Leukocyte Esterase (Negative) Blood Type Blood Type Recheck Antibody Screen Crossmatch 11/21/19 11/20/19 11/20/19 Range/Units 03:46 22:23 20:10 WBC 8.72 (4.8-10.8) K/uL RBC 2.80 L (4.7-6.1) M/uL Hgb 8.8 L 9.1 L (14.0-18.0) g/dL Hct 26.4 L 27.4 L (42-52) % MCV 94.3 (80-100) fL MCH 31.4 (25-34) pg MCHC 33.3 (32-36) g/dL RDW Std Deviation 49.2 H (36.4-46.3) fL RDW Coeff of [place] 14.2 (11.5-14.5) % Plt Count 199 (130-400) K/uL MPV 10.8 H (7.4-10.4) fL Immature Gran % (Auto) 0.2 % Neut % (Auto) 68.5 % Lymph % (Auto) 20.5 % [place] % (Auto) 8.7 % Eos % (Auto) 1.9 % Baso % (Auto) 0.2 % Immature Gran # (Auto) 0.02 (0.00-0.02) K/uL Neut # (Auto) 5.96 (1.4-6.5) K/uL Lymph # (Auto) 1.79 (1.2-3.4) K/uL [place] # (Auto) 0.76 H (0.11-0.59) K/uL Eos # (Auto) 0.17 (0-0.5) K/uL Baso # (Auto) 0.02 (0-0.2) K/uL PT INR APTT PTT Ratio Sodium (136-145) mmol/L Potassium (3.5-5.1) mmol/L Chloride (98-107) mmol/L Carbon Dioxide (21-32) mmol/L Anion Gap (3-11) BUN (7-18) mg/dl Creatinine (0.6-1.4) mg/dl Est Cr Clr Drug Dosing Est GFR ( Amer) Est GFR (Non-Af Amer) BUN/Creatinine Ratio (10-20) Glucose (70-99) mg/dl Lactate (0.4-2.0) mmol/L Calcium (8.5-10.1) mg/dl Phosphorus (2.5-4.9) mg/dl Magnesium (1.8-2.4) mg/dl Total Bilirubin (0.2-1) mg/dl AST (15-37) U/L ALT (12-78) U/L Alkaline Phosphatase (45-117) U/L Troponin I (0-0.045) ng/ml Total Protein (6.4-8.2) gm/dl Albumin (3.4-5.0) gm/dl Globulin (2.5-4.0) gm/dl Albumin/Globulin Ratio (0.9-2) Urine Color Yellow Urine Appearance Clear (Clear) Urine pH 5.0 (4.5-7.5) Ur Specific [place] 1.029 (1.000-1.030) Urine Protein Negative (Negative) Urine Glucose (UA) Negative (Negative) Urine Ketones Negative (Negative) Urine Blood Negative (Negative) Urine Nitrite Negative (Negative) Urine Bilirubin Negative (Negative) Urine Urobilinogen Negative (Negative) Ur Leukocyte Esterase Negative (Negative) Blood Type Blood Type Recheck Antibody Screen Crossmatch 11/20/19 11/20/19 11/20/19 Range/Units 20:04 20:04 16:46 WBC (4.8-10.8) K/uL RBC (4.7-6.1) M/uL Hgb 9.5 L (14.0-18.0) g/dL Hct 29.1 L (42-52) % MCV (80-100) fL MCH (25-34) pg MCHC (32-36) g/dL RDW Std Deviation (36.4-46.3) fL RDW Coeff of Yogi (11.5-14.5) % Plt Count (130-400) K/uL MPV (7.4-10.4) fL Immature Gran % (Auto) % Neut % (Auto) % Lymph % (Auto) % [place] % (Auto) % Eos % (Auto) % Baso % (Auto) % Immature Gran # (Auto) (0.00-0.02) K/uL Neut # (Auto) (1.4-6.5) K/uL Lymph # (Auto) (1.2-3.4) K/uL [place] # (Auto) (0.11-0.59) K/uL Eos # (Auto) (0-0.5) K/uL Baso # (Auto) (0-0.2) K/uL PT 33.6 H INR 3.6 H APTT 47.4 H* PTT Ratio 1.7 Sodium (136-145) mmol/L Potassium (3.5-5.1) mmol/L Chloride (98-107) mmol/L Carbon Dioxide (21-32) mmol/L Anion Gap (3-11) BUN (7-18) mg/dl Creatinine (0.6-1.4) mg/dl Est Cr Clr Drug Dosing Est GFR ( Amer) Est GFR (Non-Af Amer) BUN/Creatinine Ratio (10-20) Glucose (70-99) mg/dl Lactate (0.4-2.0) mmol/L Calcium (8.5-10.1) mg/dl Phosphorus (2.5-4.9) mg/dl Magnesium (1.8-2.4) mg/dl Total Bilirubin (0.2-1) mg/dl AST (15-37) U/L ALT (12-78) U/L Alkaline Phosphatase (45-117) U/L Troponin I (0-0.045) ng/ml Total Protein (6.4-8.2) gm/dl Albumin (3.4-5.0) gm/dl Globulin (2.5-4.0) gm/dl Albumin/Globulin Ratio (0.9-2) Urine Color Urine Appearance (Clear) Urine pH (4.5-7.5) Ur Specific [place] (1.000-1.030) Urine Protein (Negative) Urine Glucose (UA) (Negative) Urine Ketones (Negative) Urine Blood (Negative) Urine Nitrite (Negative) Urine Bilirubin (Negative) Urine Urobilinogen (Negative) Ur Leukocyte Esterase (Negative) Blood Type Blood Type Recheck O Positive Antibody Screen Crossmatch 11/20/19 11/20/19 11/20/19 Range/Units 16:00 16:00 16:00 WBC (4.8-10.8) K/uL RBC (4.7-6.1) M/uL Hgb (14.0-18.0) g/dL Hct (42-52) % MCV (80-100) fL MCH (25-34) pg MCHC (32-36) g/dL RDW Std Deviation (36.4-46.3) fL RDW Coeff of Yogi (11.5-14.5) % Plt Count (130-400) K/uL MPV (7.4-10.4) fL Immature Gran % (Auto) % Neut % (Auto) % Lymph % (Auto) % [place] % (Auto) % Eos % (Auto) % Baso % (Auto) % Immature Gran # (Auto) (0.00-0.02) K/uL Neut # (Auto) (1.4-6.5) K/uL Lymph # (Auto) (1.2-3.4) K/uL [place] # (Auto) (0.11-0.59) K/uL Eos # (Auto) (0-0.5) K/uL Baso # (Auto) (0-0.2) K/uL PT INR APTT PTT Ratio Sodium 136 (136-145) mmol/L Potassium 5.7 H (3.5-5.1) mmol/L Chloride 107 (98-107) mmol/L Carbon Dioxide 26 (21-32) mmol/L Anion Gap 3.0 (3-11) BUN 64 H (7-18) mg/dl Creatinine 1.33 (0.6-1.4) mg/dl Est Cr Clr Drug Dosing Not Reportable Est GFR ( Amer) 61.9 Est GFR (Non-Af Amer) 53.4 BUN/Creatinine Ratio 48.3 H (10-20) Glucose 120 H (70-99) mg/dl Lactate 1.2 (0.4-2.0) mmol/L Calcium 9.2 (8.5-10.1) mg/dl Phosphorus (2.5-4.9) mg/dl Magnesium 2.2 (1.8-2.4) mg/dl Total Bilirubin 0.4 (0.2-1) mg/dl AST 9 L (15-37) U/L ALT 19 (12-78) U/L Alkaline Phosphatase 89 (45-117) U/L Troponin I < 0.015 (0-0.045) ng/ml Total Protein 8.1 (6.4-8.2) gm/dl Albumin 3.7 (3.4-5.0) gm/dl Globulin 4.4 H (2.5-4.0) gm/dl Albumin/Globulin Ratio 0.8 L (0.9-2) Urine Color Urine Appearance (Clear) Urine pH (4.5-7.5) Ur Specific [place] (1.000-1.030) Urine Protein (Negative) Urine Glucose (UA) (Negative) Urine Ketones (Negative) Urine Blood (Negative) Urine Nitrite (Negative) Urine Bilirubin (Negative) Urine Urobilinogen (Negative) Ur Leukocyte Esterase (Negative) Blood Type O Positive Blood Type Recheck Antibody Screen NEGATIVE Crossmatch See Detail 11/20/19 11/20/19 Range/Units 16:00 16:00 WBC 10.39 (4.8-10.8) K/uL RBC 3.47 L (4.7-6.1) M/uL Hgb 10.7 L (14.0-18.0) g/dL Hct 33.2 L (42-52) % MCV 95.7 (80-100) fL MCH 30.8 (25-34) pg MCHC 32.2 (32-36) g/dL RDW Std Deviation 48.9 H (36.4-46.3) fL RDW Coeff of Yogi 14.1 (11.5-14.5) % Plt Count 232 (130-400) K/uL MPV 11.1 H (7.4-10.4) fL Immature Gran % (Auto) 0.2 % Neut % (Auto) 87.9 % Lymph % (Auto) 7.6 % [place] % (Auto) 4.1 % Eos % (Auto) 0.1 % Baso % (Auto) 0.1 % Immature Gran # (Auto) 0.02 (0.00-0.02) K/uL Neut # (Auto) 9.13 H (1.4-6.5) K/uL Lymph # (Auto) 0.79 L (1.2-3.4) K/uL [place] # (Auto) 0.43 (0.11-0.59) K/uL Eos # (Auto) 0.01 (0-0.5) K/uL Baso # (Auto) 0.01 (0-0.2) K/uL PT Cancelled INR Cancelled APTT Cancelled PTT Ratio Cancelled Sodium (136-145) mmol/L Potassium (3.5-5.1) mmol/L Chloride (98-107) mmol/L Carbon Dioxide (21-32) mmol/L Anion Gap (3-11) BUN (7-18) mg/dl Creatinine (0.6-1.4) mg/dl Est Cr Clr Drug Dosing Est GFR ( Amer) Est GFR (Non-Af Amer) BUN/Creatinine Ratio (10-20) Glucose (70-99) mg/dl Lactate (0.4-2.0) mmol/L Calcium (8.5-10.1) mg/dl Phosphorus (2.5-4.9) mg/dl Magnesium (1.8-2.4) mg/dl Total Bilirubin (0.2-1) mg/dl AST (15-37) U/L ALT (12-78) U/L Alkaline Phosphatase (45-117) U/L Troponin I (0-0.045) ng/ml Total Protein (6.4-8.2) gm/dl Albumin (3.4-5.0) gm/dl Globulin (2.5-4.0) gm/dl Albumin/Globulin Ratio (0.9-2) Urine Color Urine Appearance (Clear) Urine pH (4.5-7.5) Ur Specific [place] (1.000-1.030) Urine Protein (Negative) Urine Glucose (UA) (Negative) Urine Ketones (Negative) Urine Blood (Negative) Urine Nitrite (Negative) Urine Bilirubin (Negative) Urine Urobilinogen (Negative) Ur Leukocyte Esterase (Negative) Blood Type Blood Type Recheck Antibody Screen Crossmatch
[2019-11-21] MEDS ORDERED: SODIUM CHLORIDE 0.9% 250 ML IV PRN (10:35)
[2019-11-21] MEDS: SODIUM CHLORIDE 0.9% 1000ML 1,000 ML IV SCH (10:54)
[2019-11-21] MEDS: METOPROLOL SUCC 25MG EXT REL TAB PO SCH (11:29)
--- NOTE | 2019-11-21 11:41 | Anesthesiology Consultation ---
Date of Service November 21, 2019 Assessment & Plan Chart Review Chart Review: Acceptable Risk for Surgery and Patient NOT seen in Pre Admission Testing Consults Requested none History Surgery Operation Date: 11/21/19 17:00 Proposed Procedures p Esophagogastroduodenoscopy Dr Duggan - Andres Duggan MD Height/Weight Height: 6 ft 1 in Weight: 96.6 kg Allergies Allergy/AdvReac Type Severity Reaction Status Date / Time diphtheria toxoid,fluid Allergy Severe CONVULSIONS--HORSE Verified 11/21/19 11:39 SERUM BASE tetanus toxoid, adsorbed Allergy Severe CONVULSIONS--HORSE Verified 11/21/19 11:39 SERUM BASE Medications Home Medications Medication Instructions Recorded Confirmed Last Taken atorvastatin 40 mg PO PM 10/29/19 11/20/19 11/19/19 furosemide 20 mg PO QAM 10/29/19 11/20/19 11/20/19 metoprolol succinate 50 mg PO QAM 10/29/19 11/20/19 11/20/19 rivaroxaban [Xarelto] 20 mg PO PM 10/29/19 11/20/19 11/19/19 sacubitril-valsartan [Entresto] 1 tab PO BID 10/29/19 11/20/19 11/20/19 08:00 spironolactone 12.5 mg PO QAM 10/29/19 11/20/19 11/20/19 cholecalciferol (vitamin D3) 2,000 unit PO DAILY 11/20/19 11/20/19 Unknown [Vitamin D3] cyanocobalamin (vitamin B-12) 1,000 mcg PO DAILY 11/20/19 11/20/19 Unknown [Vitamin B-12] Active Medications Generic Name Dose Route Start Last Admin Trade Name Freq PRN Reason Stop Dose Admin Pantoprazole Sodium 40 mg/ 100 mls @ 20 mls/hr 11/20/19 18:15 11/21/19 11:29 Dextrose IV 12/20/19 18:14 0 mls/hr Q5H AMBER Infusion Ioversol 116 ml 11/20/19 16:55 11/20/19 16:56 Optiray 320 125ml IV 11/24/19 16:54 116 ml ONCE PRN Administration Interaction Checking Metoprolol Succinate 25 mg 11/21/19 11:00 11/21/19 11:29 Toprol Xl PO 12/21/19 10:59 Not Given QAM AMBER Past Medical History Medical History Atrial fibrillation dx 2016 - follows w/ Dr. 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 yeh Pulmonary embolism 2016 - dx while hospitalized w/ pneumonia - on xarelto Past Family History Family History Mother Family history of diabetes mellitus Past Surgical History Surgical History History of appendectomy History of cardiac catheterization 2016 - [place] - no stents History of carpal tunnel release of both wrists History of cataract surgery History of colonoscopy History of evacuation of hematoma LLE History of shoulder surgery Left History of tonsillectomy Social History Smoking Status: Former smoker tobacco type: cigarettes Do You Dip or Chew Tobacco: No Hx Alcohol Use: No Hx Substance Use: No substance use type: does not use Physical Exam Vital Signs Last Vital Signs Temp 36.5 C 11/21/19 07:35 Pulse 82 11/21/19 11:03 Resp 18 11/21/19 11:03 BP 79/49 L 11/21/19 11:03 Pulse Ox 96 11/21/19 11:03 Testing Laboratory Results 11/21/19 08:41 11/21/19 03:46 PT 11.3 Seconds (9.0-12.0) 11/21/19 08:41 INR 1.1 (0.9-1.1) 11/21/19 08:41 APTT 47.4 Seconds (21.0-31.0) H* 11/20/19 16:46 Urine Color Yellow 11/20/19 20:10 Urine Appearance Clear (Clear) 11/20/19 20:10 Urine pH 5.0 (4.5-7.5) 11/20/19 20:10 Ur Specific [place] 1.029 (1.000-1.030) 11/20/19 20:10 Urine Protein Negative (Negative) 11/20/19 20:10 Urine Glucose (UA) Negative (Negative) 11/20/19 20:10 Urine Ketones Negative (Negative) 11/20/19 20:10 Urine Nitrite Negative (Negative) 11/20/19 20:10 Ur Leukocyte Esterase Negative (Negative) 11/20/19 20:10 Blood Type O Positive 11/20/19 16:00 Antibody Screen NEGATIVE 11/20/19 16:00
[2019-11-21] MEDS ORDERED: ATROPINE SULFATE 0.1 MG/ML 10ML SYR IV PRN (11:47)
[2019-11-21] MEDS ORDERED: ePHEDrine sulfate 50 MG/ML AMP IV PRN (11:47)
--- NOTE | 2019-11-21 11:55 | Cardiology Consultation ---
Date of Consultation November 21, 2019 Assessment & Plan (1) Acute GI bleeding: Xarelto has been appropriately held in the setting of an active GI bleed with significant anemia, obviously I agree with this. Most recent pacer interrogations have revealed that the patient has not had any episodes of paroxysmal atrial fibrillation since his cardioversion in 2017, so, I believe he is a very low risk for cardioembolic event and will hold off on restarting the Xarelto from a cardiac standpoint until after the bleeding risk is acceptable. (2) BALDERAS (dyspnea on exertion): Likely secondary to anemia with baseline nonischemic cardiomyopathy Current hemoglobin of 8.9 with a reduced LV systolic function recommend transfusing 1 unit PRBC now and maintain in hemoglobin greater than 9 Should he develop any symptoms at rest than a hemoglobin of 10 or greater will be required (3) Encounter for pre-operative examination: Given the patient's history along with his current lack of cardiac symptoms he, his and sister were counseled that I would place him as a moderate risk for any adverse perioperative cardiovascular event with his wrist being approximately less than 5%. They were further counseled that no further cardiac testing or intervention would further lower that risk. The patient and his family state that they understand, they are accepting of that risk and wish to proceed with any necessary GI procedures. I see no need to delay from a cardiac standpoint. 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 Will defer to primary service. (6) Hypotension: Chronic Outpatient medical regimen has been held, however, given his cardiomyopathy and the perioperative period I believe beta-blockade should be reinstituted immediately given its perioperative risk reduction. I have ordered this. Can hold off on restarting Entresto and spironolactone until clinically stabilized. History of Present Illness Reason for Consultation: Preop risk assessment Requesting Physician: Dr. Peres Attending Physician: Riley Peres, DO History of Present Illness It was my pleasure to see Mr. Jaquez in consultation today November 21, 2019. He is a very pleasant 69-year-old gentleman who normally follows with Dr. Trejo of our cardiology practice. He presented to [facility] on 11/20/2019 with complaints of several days of abdominal pain. He states his symptoms started approximately 3 days prior to presentation. He states he got up early in the a.m. to go to the bathroom to move his bowels and he suddenly became very lightheaded and diaphoretic with ambulation. Since then he has been taking it easy and not ambulating much but every time he does he has recurrent symptoms. His finally convinced him to come in the emergency department and he was found to be significantly anemic with signs of an active GI bleed. His Xarelto was was held. Luckily, he denies experiencing any concomitant chest pain with these episodes nor any palpitations. He is currently being evaluated for endoscopy and possible colonoscopy to evaluate for source of bleed. Past medical history as per Dr. Trejo's note on August 2019: 1. Nonischemic cardiomyopathy with recent echocardiogram demonstrating improved left ventricular systolic function - ejection fraction now 35-39%. -compensated -s/p dual-chamber ICD implantation 2. Paroxysmal atrial flutter/fibrillation s/p DCCV 03/23/17 - no recurrence per most recent ICD interrogation 07/2019 3. Extensive bilateral pulmonary embolus with deep venous thrombosis (08/2016) - tolerating Xarelto - h/o left lower extremity hematoma status post evacuation by orthopedic surgery 12/2017 and recurrence 06/2018 prompting discontinuation of aspirin 4. Moderate nonobstructive coronary artery disease per cardiac catheterization August 05, 2016 5. Chronic asymptomatic resting hypotension - stable / asymptomatic 6. Frequent premature ventricular complexes 7. Moderate perioperative cardiovascular risk 8. CKD stage 3 - stable Allergies Allergy/AdvReac Type Severity Reaction Status Date / Time diphtheria toxoid,fluid Allergy Severe CONVULSIONS--HORSE Verified 11/21/19 11:39 SERUM BASE tetanus toxoid, adsorbed Allergy Severe CONVULSIONS--HORSE Verified 11/21/19 11:39 SERUM BASE Home Medications Home Medications Medication Instructions Recorded Confirmed Type atorvastatin 40 mg PO PM 10/29/19 11/20/19 History furosemide 20 mg PO QAM 10/29/19 11/20/19 History metoprolol succinate 50 mg PO QAM 10/29/19 11/20/19 History rivaroxaban [Xarelto] 20 mg PO PM 10/29/19 11/20/19 History sacubitril-valsartan [Entresto] 1 tab PO BID 10/29/19 11/20/19 History spironolactone 12.5 mg PO QAM 10/29/19 11/20/19 History cholecalciferol (vitamin D3) 2,000 unit PO DAILY 11/20/19 11/20/19 History [Vitamin D3] cyanocobalamin (vitamin B-12) 1,000 mcg PO DAILY 11/20/19 11/20/19 History [Vitamin B-12] Patient History Medical History Atrial fibrillation dx 2016 - follows w/ Dr. 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 yeh Pulmonary embolism 2016 - dx while hospitalized w/ pneumonia - on xarelto Surgical History History of appendectomy History of cardiac catheterization 2016 - [place] - no stents History of carpal tunnel release of both wrists History of cataract surgery History of colonoscopy History of evacuation of hematoma LLE History of shoulder surgery Left History of tonsillectomy Family History Mother Family history of diabetes mellitus Social History Preferred Language: Kyrgyz Communication Ability: Effective Grade Setter Required: No Beliefs That Will Affect Care: None Current Living Situation: Spouse Other Information That Helps Us Care for You: No Feels Safe at Home: Yes Safety Concerns: Feels Safe At This Time Smoking Status: Former smoker Tobacco Type: cigarettes ; Do You Dip or Chew Tobacco: No ; Second Hand Exposure: No ; Hx Alcohol Use: No Hx Substance Use: No Review of Systems Review of Systems: All systems reviewed & are unremarkable except as noted in HPI & below Physical Exam Physical Exam: General: Awake, alert and oriented x 3. No acute distress. HEENT: Normocephalic, atraumatic. Pupils equal, round and reactive to light and accommodation. Extraocular muscles are intact. Anicteric sclera. Moist mucous membranes. Neck: No JVD. No bruit. Cardiovascular: Regular. Positive S-4. Normal S-1 and S-2. No S-3. No murmurs or rubs. Pulmonary: Clear to auscultation B/L. No rales, rhonchi or wheezing Abdomen: Bowel sounds x 4, soft. No rebound, guarding or tenderness. No organomegaly. Extremities: No clubbing, cyanosis or edema. +2 pedal pulses bilaterally. Skin: Warm and dry. Results & Data Vital Signs (Past 12 Hours) Vital Signs Temp Pulse Resp BP BP Pulse Ox 11/21/19 11:03 82 18 84/54 L 79/49 L 96 11/21/19 07:35 36.5 C 83 18 87/58 L 96 11/21/19 04:00 36.4 C L 82 18 86/55 L 95 Diagnostic Findings 2D echocardiogram report November 12, 2018: The left ventricular cavity size is normal. The LV wall thickness is moderately increased (concentric). The septal motion is abnormal consistent with right ventricular pacemaker. There is moderate diffuse left ventricular hypokinesis. There is localized hypokinesis the basilar inferior inferior septal lovelace The qualitative LV ejection fraction is 35-39% (moderately reduced). Moderate aortic valve sclerosis is present. Compared to last available study changes are noted as follows: Left ventricular systolic size is smaller and overall function has improved
[2019-11-21] MEDS ORDERED: PROPOFOL IV EMULSION 10 MG/ML 20 ML VIAL IV ONE (12:07)
[2019-11-21] MEDS ORDERED: LIDOCAINE HCL 2% 2 ML VIAL/AMP(20MG/ML) INFIL ONE (12:07)
[2019-11-21] MEDS ORDERED: GLYCOPYRROLATE 0.2 MG/ML VIAL ONE (12:36)
[2019-11-21] MEDS ORDERED: ONDANSETRON INJ 2 MG/ML 2 ML VIAL ONE (12:36)
--- NOTE | 2019-11-21 12:53 | GI REPORT ---
Patient Name: Mauro Jaquez Procedure Date: 11/21/2019 12:19 PM Date of : 1950 Admit Type: Inpatient Age: 69 Gender: Male Attending MD: Andres Duggan MD Procedure: Upper GI endoscopy Providers: Andres Duggan MD Referring MD: Riley Peres Indications: Hematochezia Medicines: Propofol per Anesthesia Complications: No immediate complications. Estimated Blood Loss: Estimated blood loss: none. Procedure: Pre-Anesthesia Assessment: - Prior to the procedure, a History and Physical was performed, and patient medications, allergies and sensitivities were reviewed. The patient's tolerance of previous anesthesia was reviewed. - The risks and benefits of the procedure and the sedation options and risks were discussed with the patient. All questions were answered and informed consent was obtained. - Patient identification and proposed procedure were verified prior to the procedure by the physician and the nurse. The procedure was verified in the procedure room. - Pre-procedure physical examination revealed no contraindications to sedation. After obtaining informed consent, the endoscope was passed under direct vision. Throughout the procedure, the patient's blood pressure, pulse, and oxygen saturations were monitored continuously. The Endoscope was introduced through the mouth, and advanced to the second part of duodenum. The upper GI endoscopy was accomplished without difficulty. The patient tolerated the procedure well. Findings: The examined esophagus was normal. The entire examined stomach was normal. One non-bleeding cratered duodenal ulcer with no stigmata of bleeding was found in the duodenal bulb. The lesion was 10 mm in largest dimension. The second portion of the duodenum was normal. Impression: - Normal esophagus. - Normal stomach. - One non-bleeding duodenal ulcer with no stigmata of bleeding. - Normal second portion of the duodenum. - No specimens collected. Recommendation: - [facility]. - Use Protonix (pantoprazole) 40 mg PO BID for 2 months. - Check stool for H.Pylori. - Avoid NSAIDs. - Repeat EGD in 2 months to check healing. - Perform a colonoscopy tomorrow. Andres Duggan MD 11/21/2019 12:52:24 PM This report has been signed electronically. Note Initiated On: 11/21/2019 12:19 PM Number of Addenda: 0 I attest to the content of the Intraoperative Record and orders documented therein, exceptions below {[id number]}
[2019-11-21] MEDS ORDERED: LAVAGE SOLUTION 4000ML PO SCH (14:00)
--- NOTE | 2019-11-21 15:39 | Anesthesiology Progress Note ---
Date of Service November 21, 2019 Anesthesia Post Procedure Vital Signs Vital Signs: Temp Pulse Pulse Resp BP BP BP 11/21/19 14:57 91 H 18 85/63 L 11/21/19 14:56 36.5 C 91 H 16 85/63 L 11/21/19 14:26 36.5 C 90 16 103/60 11/21/19 14:11 36.5 C 90 16 96/66 L 11/21/19 13:54 36.5 C 89 16 105/66 11/21/19 13:10 89 18 115/86 11/21/19 12:54 91 H 18 106/80 11/21/19 12:40 98 H 16 103/75 11/21/19 11:40 36.6 C 88 18 114/71 11/21/19 11:03 82 18 84/54 L 79/49 L 11/21/19 07:35 36.5 C 83 18 87/58 L 11/21/19 04:00 36.4 C L 82 18 86/55 L 11/20/19 23:43 37.0 C 82 18 81/54 L 80/58 L 11/20/19 21:30 36.5 C 87 18 104/59 L 11/20/19 21:16 89 18 11/20/19 21:15 89 28 H 99/67 L 11/20/19 21:01 84 15 11/20/19 21:00 84 26 H 96/70 L 11/20/19 20:46 85 27 H 11/20/19 20:45 83 23 90/67 L 11/20/19 20:31 85 22 11/20/19 20:30 85 21 89/64 L 11/20/19 20:16 80 18 11/20/19 20:15 85 21 100/67 11/20/19 20:01 85 23 11/20/19 20:00 84 30 H 103/64 11/20/19 19:46 82 28 H 11/20/19 19:45 84 22 88/65 L 11/20/19 19:37 87 22 100/65 11/20/19 19:31 85 22 11/20/19 19:30 90 22 77/64 L 11/20/19 19:16 90 21 11/20/19 19:15 86 21 97/61 L 11/20/19 19:01 88 20 11/20/19 19:00 87 32 H 98/57 L 11/20/19 18:46 88 20 11/20/19 18:45 87 17 83/58 L 11/20/19 18:31 85 24 11/20/19 18:30 83 25 H 91/63 L 11/20/19 18:16 85 22 11/20/19 18:15 87 17 105/66 11/20/19 18:01 83 30 H 11/20/19 18:00 88 34 H 105/68 11/20/19 17:46 88 20 11/20/19 17:45 90 25 H 94/64 L 11/20/19 17:31 89 28 H 11/20/19 17:30 89 28 H 90/66 L 11/20/19 17:29 88 29 H 92/60 L 11/20/19 17:28 96 H 25 H 11/20/19 16:46 90 32 H 11/20/19 16:45 90 32 H 87/64 L 11/20/19 16:31 93 H 97 H 21 88/61 L 11/20/19 16:30 94 H 24 88/61 L 11/20/19 16:16 98 H 25 H 11/20/19 16:15 93 H 24 93/59 L 11/20/19 16:01 100 H 28 H 11/20/19 16:00 97 H 28 H 99/58 L 11/20/19 15:46 104 H 21 11/20/19 15:45 102 H 22 95/63 L Pulse Ox 11/21/19 14:57 100 11/21/19 14:56 99 11/21/19 14:26 99 11/21/19 14:11 99 11/21/19 13:54 99 11/21/19 13:10 98 11/21/19 12:54 98 11/21/19 12:40 98 11/21/19 11:40 98 11/21/19 11:03 96 11/21/19 07:35 96 11/21/19 04:00 95 11/20/19 23:43 95 11/20/19 21:30 96 11/20/19 21:16 98 11/20/19 21:15 100 11/20/19 21:01 99 11/20/19 21:00 100 11/20/19 20:46 98 11/20/19 20:45 98 11/20/19 20:31 98 11/20/19 20:30 98 11/20/19 20:16 99 11/20/19 20:15 100 11/20/19 20:01 93 11/20/19 20:00 96 11/20/19 19:46 99 11/20/19 19:45 100 11/20/19 19:37 100 11/20/19 19:31 100 11/20/19 19:30 100 11/20/19 19:16 97 11/20/19 19:15 100 11/20/19 19:01 95 11/20/19 19:00 100 11/20/19 18:46 97 11/20/19 18:45 98 11/20/19 18:31 100 11/20/19 18:30 99 11/20/19 18:16 97 11/20/19 18:15 97 11/20/19 18:01 98 11/20/19 18:00 100 11/20/19 17:46 99 11/20/19 17:45 98 11/20/19 17:31 95 11/20/19 17:30 95 11/20/19 17:29 99 11/20/19 17:28 11/20/19 16:46 98 11/20/19 16:45 100 11/20/19 16:31 98 11/20/19 16:30 99 11/20/19 16:16 98 11/20/19 16:15 96 11/20/19 16:01 99 11/20/19 16:00 97 11/20/19 15:46 99 11/20/19 15:45 96 Transfer of Care Handoff Completed per policy Notes Mental Status: alert / awake / arousable Patient Amnestic to Procedure: Yes Nausea / Vomiting: adequately controlled Pain: adequately controlled Airway Patency, RR, SpO2: stable & adequate BP & HR: stable & adequate Hydration State: stable & adequate Anesthetic Complications: no major complications apparent and Pt Satisfied with anesthetic care
[2019-11-21 19:36] LABS: Hematocrit (blood only) 30.8 % (42-52); Hemoglobin 10.2 g/dL (14.0-18.0)
--- NOTE | 2019-11-21 22:15 | Electrocardiogram Report ---
Test Reason : Blood Pressure : / mmHG Vent. Rate : 097 BPM Atrial Rate : 097 BPM P-R Int : 164 ms QRS Dur : 088 ms QT Int : 328 ms P-R-T Axes : 038 -20 039 degrees QTc Int : 416 ms Normal sinus rhythm Low voltage QRS Inferior infarct , age undetermined Abnormal ECG When compared with ECG of 19-JUN-2018 08:45, Sinus rhythm has replaced Electronic atrial pacemaker Questionable change in QRS duration Confirmed by Kris Coy ([id number]) on 11/21/2019 10:14:48 PM Referred By: REFERRED SELF Confirmed By:Kris Coy
[2019-11-22] MEDS: PANTOprazole 40 MG in DEXTROSE 5% 100 ML IV SCH ×3 (00:42→10:45)
[2019-11-22 06:14] LABS: Basophils # (auto) 0.02 K/uL (0-0.2); Basophils % (auto) 0.3 %; Eosinophils % (auto) 4.9 %; Hematocrit (blood only) 27.1 % (42-52); Hemoglobin 8.9 g/dL (14.0-18.0); Immature Granulocytes # (auto) 0.03 K/uL (0.00-0.02); Immature Granulocytes % (auto) 0.5 %; Lymphocytes # (auto) 0.88 K/uL (1.2-3.4); Lymphocytes % (auto) 14.4 %; Mean Corpuscular Hemoglobin 31.2 pg (25-34); Mean Corpuscular Hgb Conc 32.8 g/dL (32-36); Mean Corpuscular Volume 95.1 fL (80-100); Mean Platelet Volume 10.7 fL (7.4-10.4); Monocytes # (auto) 0.53 K/uL (0.11-0.59); Monocytes % (auto) 8.7 %; Neutrophils # (auto) 4.35 K/uL (1.4-6.5); Neutrophils % (auto) 71.2 %; Platelet Count 179 K/uL (130-400); RDW Coefficient of Variation 14.8 % (11.5-14.5); RDW Standard Deviation 51.2 fL (36.4-46.3); Red Blood Count 2.85 M/uL (4.7-6.1); White Blood Count 6.11 K/uL (4.8-10.8)
[2019-11-22 06:31] LABS: BUN Creatinine Ratio 27.2 (10-20); Calcium 8.4 mg/dl (8.5-10.1); Creatinine Clr Calc Pharmacy 66.9 ml/min; Est GFR (African American) 67.4; Est GFR (Non-African American) 58.1; Phosphorus 3.2 mg/dl (2.5-4.9); Potassium 4.3 mmol/L (3.5-5.1)
--- NOTE | 2019-11-22 07:34 | Hospitalist Progress Note ---
Date of Service November 22, 2019 Assessment & Plan (1) Acute GI bleeding: Hb stable at 8.9 today after transfusion of one unit PRBC on 11/21 BP is low normal, no longer hypotensive appears that bleeding has subsided EGD on 11/21 with duodenal ulcer, non-bleeding, no stigmata of recent bleeding plan for colonoscopy today continue to hold Xarelto while work up for bleeding is completed remain on PCU due to heart history and low normal BP (2) Duodenal ulcer: no stigmata of recent bleeding Protonix 40mg BID, check stool for H pylori will need follow up EGD in 2 months to document healing (3) Acute hypotension: resolved after one unit of PRBC on 11/21 BP normally in the 90's systolic per patient, he has no symptoms this does not represent hemorrhagic shock (4) BALDERAS (dyspnea on exertion): multifactorial with chronic systolic heart failure, granulomatous lung changes but most likely cause of acute change would be anemia dyspnea correlated to blood loss and melena improved today (5) care home (current) use of anticoagulants: Holding Xarelto (6) Pulmonary embolism: Holding Xarelto until GI work-up complete (7) CAD (coronary artery disease): CAD/nonischemic cardiomyopathy- Hold furosemide, Xarelto, Entresto and spironolactone due to n.p.o. status and relative hypotension. will continue the Toprol can likely resume heart medications tomorrow depending on what is found on colonoscopy (8) NICM (nonischemic cardiomyopathy): See above (9) CKD (chronic kidney disease) stage 3, GFR 30-59 ml/min: Creatinine 1.33 upon admission, with range 1.35-1.42. K is down to normal at 4.3 Cr is 1.24 today, making adequate urine continue to hold Lasix, Spironolactone with plans for colonoscopy tomorrow and volume loss expected with bowel prep (10) Paroxysmal atrial fibrillation: Anticoagulation with Xarelto being held. 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 For now, have nebulizers available to use PRN. no need for pulmonary consult. (12) Dyslipidemia: Holding atorvastatin (13) B12 deficiency anemia: Hold supplement while n.p.o. (14) Chronic systolic heart failure: (15) Acute blood loss anemia: Subjective patient feeling good today, no new issues overnight, he completed the bowel prep stools are no longer dark no vomiting, no abdominal pain no chest pain, no dyspnea reviewed labs, Hb is 8.9, Cr 1.24, electrolytes stable plan for colonoscopy tomorrow updated his family at the bedside discussed with Dr. Angelo, no further recommendations, can likely resume cardiac medications in the morning Review of Systems Review of Systems: All systems reviewed & are unremarkable except as noted in HPI & below Physical Exam Constitutional: WD/WN, vitals as above Eyes: PERRL, conjunctivae normal, anicteric sclerae ENMT: external ear and nose normal, oropharynx normal Neck: trachea midline, no thyromegaly Respiratory: normal respiratory effort, lungs clear to auscultation Cardiovascular: RRR, no murmur, no edema Gastrointestinal (Abdomen): normal bowel sounds, soft, nontender, no hepatosplenomegaly Musculoskeletal: no cyanosis or clubbing, extremities motor strength 5/5 Skin: no rashes, warm and dry Neurologic: patellar DTR's 2+ bilat, sensation intact and PERRL, EOMI, accommodation nl, no face palsy, no dysarthria Psychiatric: A+Ox3, euthymic affect Lymphatic: no cervical or axillary lymphadenopathy Results & Data Vital Signs (Past 12 Hours) Vital Signs Temp Pulse Pulse Resp BP BP Pulse Ox 11/22/19 04:13 36.6 C 88 18 99/66 L 96 11/21/19 23:59 90 11/21/19 23:33 37.0 C 88 17 96/66 L 98 Laboratory Results Laboratory Results - last 24 hr 11/20/19 11/21/19 11/21/19 16:00 19:21 19:21 WBC RBC Hgb 10.2 L Hct 30.8 L MCV MCH MCHC RDW Std Deviation RDW Coeff of Yogi Plt Count MPV Immature Gran % (Auto) Neut % (Auto) Lymph % (Auto) [place] % (Auto) Eos % (Auto) Baso % (Auto) Immature Gran # (Auto) Neut # (Auto) Lymph # (Auto) [place] # (Auto) Eos # (Auto) Baso # (Auto) Sodium Potassium Chloride Carbon Dioxide Anion Gap BUN Creatinine Est Cr Clr Drug Dosing Est GFR ( Amer) Est GFR (Non-Af Amer) BUN/Creatinine Ratio Glucose Calcium Phosphorus Troponin I < 0.015 Albumin Crossmatch See Detail 11/22/19 11/22/19 05:53 05:53 WBC 6.11 RBC 2.85 L Hgb 8.9 L Hct 27.1 L MCV 95.1 MCH 31.2 MCHC 32.8 RDW Std Deviation 51.2 H RDW Coeff of Yogi 14.8 H Plt Count 179 MPV 10.7 H Immature Gran % (Auto) 0.5 Neut % (Auto) 71.2 Lymph % (Auto) 14.4 [place] % (Auto) 8.7 Eos % (Auto) 4.9 Baso % (Auto) 0.3 Immature Gran # (Auto) 0.03 H Neut # (Auto) 4.35 Lymph # (Auto) 0.88 L [place] # (Auto) 0.53 Eos # (Auto) 0.30 Baso # (Auto) 0.02 Sodium 141 Potassium 4.3 Chloride 111 H Carbon Dioxide 27 Anion Gap 3.0 BUN 34 H Creatinine 1.24 Est Cr Clr Drug Dosing 66.9 Est GFR ( Amer) 67.4 Est GFR (Non-Af Amer) 58.1 BUN/Creatinine Ratio 27.2 H Glucose 89 Calcium 8.4 L Phosphorus 3.2 Troponin I Albumin 3.0 L Crossmatch Medications Administered Current Inpatient Medications Albuterol (Duoneb) 3 ml NEB Q2H PRN PRN Reason: dyspnea Stop: 12/21/19 03:06 Atropine Sulfate (Atropine Sulfate) 0.5 mg IV Q1M PRN PRN Reason: PACU Use-HR<40 &/or Bradycardi Stop: 11/22/19 20:42 Ephedrine Sulfate (Ephedrine Sulfate) 5 mg IV Q5M PRN PRN Reason: PACU Use Only-SBP<90 mmHg Stop: 11/22/19 20:42 Ioversol (Optiray 320 125ml) 116 ml IV ONCE PRN PRN Reason: Interaction Checking Stop: 11/24/19 16:54 Last Admin: 11/20/19 16:56 Dose: 116 ml Documented by: Metoprolol Succinate (Toprol Xl) 25 mg PO QAM AMBER Stop: 12/21/19 10:59 Last Admin: 11/22/19 08:50 Dose: 25 mg Documented by: Ondansetron HCl (Zofran) 4 mg IV Q6H PRN PRN Reason: Nausea Stop: 12/20/19 22:06 Pantoprazole Sodium (Protonix) 40 mg PO BID AMBER Stop: 12/22/19 20:59 PG Care Time/CCT Total # of Minutes Spent Total Time Spent with Patient: Total time spent is greater than 50% in coordination of care (as documented) at patient's floor/unit and/or counseling patient: Coding Level of Care Code 84924 Subseq Hosp Care Lvl 3 Diagnoses Acute GI bleeding K92.2 Duodenal ulcer K26.9 Acute hypotension I95.9 BALDERAS (dyspnea on 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
--- NOTE | 2019-11-22 07:56 | Anesthesiology Progress Note ---
Date of Service November 22, 2019 Anesthesia Post Procedure Vital Signs Vital Signs: Temp Pulse Pulse Resp BP BP BP 11/22/19 07:40 37.0 C 88 18 110/64 11/22/19 04:13 36.6 C 88 18 99/66 L 11/21/19 23:59 90 11/21/19 23:33 37.0 C 88 17 96/66 L 11/21/19 19:19 36.8 C 89 18 108/70 11/21/19 17:26 36.5 C 90 15 83/57 L 11/21/19 16:56 36.5 C 89 16 88/62 L 11/21/19 15:56 36.6 C 83 15 98/59 L 11/21/19 14:57 91 H 18 85/63 L 11/21/19 14:56 36.5 C 91 H 16 85/63 L 11/21/19 14:26 36.5 C 90 16 103/60 11/21/19 14:11 36.5 C 90 16 96/66 L 11/21/19 13:54 36.5 C 89 16 105/66 11/21/19 13:10 89 18 115/86 11/21/19 12:54 91 H 18 106/80 11/21/19 12:40 98 H 16 103/75 11/21/19 11:40 36.6 C 88 18 114/71 11/21/19 11:03 82 18 84/54 L 79/49 L Pulse Ox 11/22/19 07:40 98 11/22/19 04:13 96 11/21/19 23:59 11/21/19 23:33 98 11/21/19 19:19 96 11/21/19 17:26 100 11/21/19 16:56 99 11/21/19 15:56 99 11/21/19 14:57 100 11/21/19 14:56 99 11/21/19 14:26 99 11/21/19 14:11 99 11/21/19 13:54 99 11/21/19 13:10 98 11/21/19 12:54 98 11/21/19 12:40 98 11/21/19 11:40 98 11/21/19 11:03 96 Notes Mental Status: alert / awake / arousable and participated in evaluation Patient Amnestic to Procedure: Yes Nausea / Vomiting: adequately controlled Pain: adequately controlled Airway Patency, RR, SpO2: stable & adequate BP & HR: stable & adequate Hydration State: stable & adequate Anesthetic Complications: no major complications apparent and Pt Satisfied with anesthetic care
[2019-11-22] MEDS: METOPROLOL SUCC 25MG EXT REL TAB PO SCH (08:50)
--- NOTE | 2019-11-22 08:51 | Gastroenterology Progress Note ---
Date of Service November 22, 2019 Assessment & Plan (1) Acute blood loss anemia: 69 year old male w/ history of bloody stools, EGD yesterday w/ nonbleeding duodenal ulcer prepped for colonoscopy today NPO for colonoscopy Please see EGD Report for additional recommendations Please see report of colonoscopy once completed for any changes in plans Thank you for allowing us to participate in the care of this patient. Please call with any acute changes, questions or concerns. Please see addendum below with additional recommendation from my supervising physician. Present on Admission?: Yes Supervising Physician Co-Signing Physician Notes I performed a history and physical examination of the patient, including specifically on physical exam - soft, nontender abdomen. I have discussed the patient's management with Rachel. Please refer to the nurse practitioner's note for the documented findings and plan of care. Colonoscopy today Subjective Pt was seen and evaluated, chart reviewed. NPO for colonoscopy today Tolerated prep Stools are liquid He suggests the stools were still bloody but is color blind No concerns this AM Review of Systems Constitutional: no fever and no chills Respiratory: no cough and no dyspnea Cardiovascular: no chest pain and no radiating jaw, neck or arm pain Gastrointestinal: + blood in stools; no abdominal pain and no melena Physical Exam Constitutional: WD/WN, vitals as above Neck: trachea midline Respiratory: normal respiratory effort, lungs clear to auscultation Cardiovascular: RRR, no murmur, no edema Gastrointestinal (Abdomen): normal bowel sounds, soft, nontender, no hepatosplenomegaly Results & Data Vital Signs (Past 12 Hours) Vital Signs Temp Pulse Pulse Resp BP BP Pulse Ox 11/22/19 08:00 99 H 11/22/19 07:40 37.0 C 88 18 110/64 98 11/22/19 04:13 36.6 C 88 18 99/66 L 96 11/21/19 23:59 90 11/21/19 23:33 37.0 C 88 17 96/66 L 98 Laboratory Results 11/22/19 11/22/19 11/21/19 Range/Units 05:53 05:53 19:21 WBC 6.11 (4.8-10.8) K/uL RBC 2.85 L (4.7-6.1) M/uL Hgb 8.9 L (14.0-18.0) g/dL Hct 27.1 L (42-52) % MCV 95.1 (80-100) fL MCH 31.2 (25-34) pg MCHC 32.8 (32-36) g/dL RDW Std Deviation 51.2 H (36.4-46.3) fL RDW Coeff of Yogi 14.8 H (11.5-14.5) % Plt Count 179 (130-400) K/uL MPV 10.7 H (7.4-10.4) fL Immature Gran % (Auto) 0.5 % Neut % (Auto) 71.2 % Lymph % (Auto) 14.4 % [place] % (Auto) 8.7 % Eos % (Auto) 4.9 % Baso % (Auto) 0.3 % Immature Gran # (Auto) 0.03 H (0.00-0.02) K/uL Neut # (Auto) 4.35 (1.4-6.5) K/uL Lymph # (Auto) 0.88 L (1.2-3.4) K/uL [place] # (Auto) 0.53 (0.11-0.59) K/uL Eos # (Auto) 0.30 (0-0.5) K/uL Baso # (Auto) 0.02 (0-0.2) K/uL PT (9.0-12.0) Seconds INR (0.9-1.1) Sodium 141 (136-145) mmol/L Potassium 4.3 (3.5-5.1) mmol/L Chloride 111 H (98-107) mmol/L Carbon Dioxide 27 (21-32) mmol/L Anion Gap 3.0 (3-11) BUN 34 H (7-18) mg/dl Creatinine 1.24 (0.6-1.4) mg/dl Est Cr Clr Drug Dosing 66.9 ml/min Est GFR ( Amer) 67.4 Est GFR (Non-Af Amer) 58.1 BUN/Creatinine Ratio 27.2 H (10-20) Glucose 89 (70-99) mg/dl Calcium 8.4 L (8.5-10.1) mg/dl Phosphorus 3.2 (2.5-4.9) mg/dl Troponin I < 0.015 (0-0.045) ng/ml Albumin 3.0 L (3.4-5.0) gm/dl Blood Type Antibody Screen Crossmatch 11/21/19 11/21/19 11/21/19 Range/Units 19:21 11:11 08:41 WBC (4.8-10.8) K/uL RBC (4.7-6.1) M/uL Hgb 10.2 L (14.0-18.0) g/dL Hct 30.8 L (42-52) % MCV (80-100) fL MCH (25-34) pg MCHC (32-36) g/dL RDW Std Deviation (36.4-46.3) fL RDW Coeff of Yogi (11.5-14.5) % Plt Count (130-400) K/uL MPV (7.4-10.4) fL Immature Gran % (Auto) % Neut % (Auto) % Lymph % (Auto) % [place] % (Auto) % Eos % (Auto) % Baso % (Auto) % Immature Gran # (Auto) (0.00-0.02) K/uL Neut # (Auto) (1.4-6.5) K/uL Lymph # (Auto) (1.2-3.4) K/uL [place] # (Auto) (0.11-0.59) K/uL Eos # (Auto) (0-0.5) K/uL Baso # (Auto) (0-0.2) K/uL PT 11.3 (9.0-12.0) Seconds INR 1.1 (0.9-1.1) Sodium (136-145) mmol/L Potassium (3.5-5.1) mmol/L Chloride (98-107) mmol/L Carbon Dioxide (21-32) mmol/L Anion Gap (3-11) BUN (7-18) mg/dl Creatinine (0.6-1.4) mg/dl Est Cr Clr Drug Dosing ml/min Est GFR ( Amer) Est GFR (Non-Af Amer) BUN/Creatinine Ratio (10-20) Glucose (70-99) mg/dl Calcium (8.5-10.1) mg/dl Phosphorus (2.5-4.9) mg/dl Troponin I < 0.015 (0-0.045) ng/ml Albumin (3.4-5.0) gm/dl Blood Type Antibody Screen Crossmatch 11/21/19 11/20/19 Range/Units 08:41 16:00 WBC (4.8-10.8) K/uL RBC (4.7-6.1) M/uL Hgb 8.9 L (14.0-18.0) g/dL Hct 27.1 L (42-52) % MCV (80-100) fL MCH (25-34) pg MCHC (32-36) g/dL RDW Std Deviation (36.4-46.3) fL RDW Coeff of Yogi (11.5-14.5) % Plt Count (130-400) K/uL MPV (7.4-10.4) fL Immature Gran % (Auto) % Neut % (Auto) % Lymph % (Auto) % [place] % (Auto) % Eos % (Auto) % Baso % (Auto) % Immature Gran # (Auto) (0.00-0.02) K/uL Neut # (Auto) (1.4-6.5) K/uL Lymph # (Auto) (1.2-3.4) K/uL [place] # (Auto) (0.11-0.59) K/uL Eos # (Auto) (0-0.5) K/uL Baso # (Auto) (0-0.2) K/uL PT (9.0-12.0) Seconds INR (0.9-1.1) Sodium (136-145) mmol/L Potassium (3.5-5.1) mmol/L Chloride (98-107) mmol/L Carbon Dioxide (21-32) mmol/L Anion Gap (3-11) BUN (7-18) mg/dl Creatinine (0.6-1.4) mg/dl Est Cr Clr Drug Dosing ml/min Est GFR ( Amer) Est GFR (Non-Af Amer) BUN/Creatinine Ratio (10-20) Glucose (70-99) mg/dl Calcium (8.5-10.1) mg/dl Phosphorus (2.5-4.9) mg/dl Troponin I (0-0.045) ng/ml Albumin (3.4-5.0) gm/dl Blood Type O Positive Antibody Screen NEGATIVE Crossmatch See Detail
--- NOTE | 2019-11-22 10:29 | Cardiology Progress Note ---
Date of Service November 22, 2019 Assessment & Plan (1) Acute GI bleeding: Xarelto has been appropriately held in the setting of an active GI bleed with significant anemia, obviously I agree with this. Most recent pacer interrogations have revealed that the patient has not had any episodes of paroxysmal atrial fibrillation since his cardioversion in 2017, so, I believe he is a very low risk for cardioembolic event and will hold off on restarting the Xarelto from a cardiac standpoint until after the bleeding risk is acceptable. (2) BALDERAS (dyspnea on exertion): Likely secondary to anemia with baseline nonischemic cardiomyopathy Hemoglobin improved yesterday, however, now back down to 8.9. Given his lack of symptoms and pending colonoscopy would hold off on transfusing further at this time, unless no source of bleed is found by colonoscopy. (3) Encounter for pre-operative examination: Given the patient's history along with his current lack of cardiac symptoms he, his and sister were counseled that I would place him as a moderate risk for any adverse perioperative cardiovascular event with his wrist being approximately less than 5%. They were further counseled that no further cardiac testing or intervention would further lower that risk. The patient and his family state that they understand, they are accepting of that risk and wish to proceed with any necessary GI procedures. I see no need to delay from a cardiac standpoint. 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 Will defer to primary service. (6) Hypotension: Chronic Outpatient medical regimen has been held, however, given his cardiomyopathy and the perioperative period I believe beta-blockade should be reinstituted immediately given its perioperative risk reduction. I have ordered this. Can hold off on restarting Entresto and spironolactone until clinically stabilized. Subjective Patient seen and examined with family at bedside, states he is feeling much better today. Notes that his strength has improved after receiving 1 unit of packed red blood cells. Tolerated EGD well and has completed colonoscopy prep overnight. Continues to deny cardiac complaints of chest pain, shortness of breath, palpitations, lightheadedness, dizziness or syncope while at rest. Telemetry reviewed: Normal sinus rhythm without arrhythmia or significant ectopy. Review of Systems Review of Systems: All systems reviewed & are unremarkable except as noted in HPI & below Physical Exam Physical Exam: General: Awake, alert and oriented x 3. No acute distress. HEENT: Normocephalic, atraumatic. Pupils equal, round and reactive to light and accommodation. Extraocular muscles are intact. Anicteric sclera. Moist mucous membranes. Neck: No JVD. No bruit. Cardiovascular: Regular. Positive S-4. Normal S-1 and S-2. No S-3. No murmurs or rubs. Pulmonary: Clear to auscultation B/L. No rales, rhonchi or wheezing Abdomen: Bowel sounds x 4, soft. No rebound, guarding or tenderness. No organomegaly. Extremities: No clubbing, cyanosis or edema. +2 pedal pulses bilaterally. Skin: Warm and dry. Results & Data Vital Signs (Past 12 Hours) Vital Signs Temp Pulse Pulse Resp BP BP Pulse Ox 11/22/19 08:00 99 H 11/22/19 07:40 37.0 C 88 18 110/64 98 11/22/19 04:13 36.6 C 88 18 99/66 L 96 11/21/19 23:59 90 11/21/19 23:33 37.0 C 88 17 96/66 L 98
--- NOTE | 2019-11-22 15:04 | Anesthesiology Consultation ---
Date of Service November 22, 2019 Assessment & Plan Chart Review Chart Review: Acceptable Risk for Surgery and Patient NOT seen in Pre Admission Testing Consults Requested none History Surgery Operation Date: 11/21/19 17:00 Proposed Procedures p Esophagogastroduodenoscopy Dr Olga Lidia Duggan MD Operation Date: 11/22/19 16:30 Proposed Procedures p Colonoscopy Dr Olga Lidia Duggan MD Height/Weight Height: 6 ft 1 in Weight: 97.6 kg Allergies Allergy/AdvReac Type Severity Reaction Status Date / Time diphtheria toxoid,fluid Allergy Severe CONVULSIONS--HORSE Verified 11/22/19 14:34 SERUM BASE tetanus toxoid, adsorbed Allergy Severe CONVULSIONS--HORSE Verified 11/22/19 14:34 SERUM BASE Medications Home Medications Medication Instructions Recorded Confirmed Last Taken atorvastatin 40 mg PO PM 10/29/19 11/22/19 11/19/19 furosemide 20 mg PO QAM 10/29/19 11/22/19 11/20/19 metoprolol succinate 50 mg PO QAM 10/29/19 11/22/19 11/20/19 rivaroxaban [Xarelto] 20 mg PO PM 10/29/19 11/22/19 11/19/19 sacubitril-valsartan [Entresto] 1 tab PO BID 10/29/19 11/22/19 11/20/19 08:00 spironolactone 12.5 mg PO QAM 10/29/19 11/22/19 11/20/19 cholecalciferol (vitamin D3) 2,000 unit PO DAILY 11/20/19 11/22/19 Unknown [Vitamin D3] cyanocobalamin (vitamin B-12) 1,000 mcg PO DAILY 11/20/19 11/22/19 Unknown [Vitamin B-12] Active Medications Generic Name Dose Route Start Last Admin Trade Name Freq PRN Reason Stop Dose Admin Ioversol 116 ml 11/20/19 16:55 11/20/19 16:56 Optiray 320 125ml IV 11/24/19 16:54 116 ml ONCE PRN Administration Interaction Checking Metoprolol Succinate 25 mg 11/21/19 11:00 11/22/19 08:50 Toprol Xl PO 12/21/19 10:59 25 mg QAM AMBER Administration NPO Date Last Intake of Fluids: 11/21/19 Time Last Intake of Fluids: 15:00 Date Last Intake of Solids: 11/21/19 Time Last Intake of Solids: 08:00 Past Medical History Medical History Atrial fibrillation dx 2016 - follows w/ Dr. 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 yeh Pulmonary embolism 2016 - dx while hospitalized w/ pneumonia - on xarelto Past Family History Family History Mother Family history of diabetes mellitus Past Surgical History Surgical History History of appendectomy History of cardiac catheterization 2016 - [place] - no stents History of carpal tunnel release of both wrists History of cataract surgery History of colonoscopy History of evacuation of hematoma LLE History of shoulder surgery Left History of tonsillectomy Social History Smoking Status: Former smoker tobacco type: cigarettes Do You Dip or Chew Tobacco: No Hx Alcohol Use: No Hx Substance Use: No substance use type: does not use Physical Exam Vital Signs Last Vital Signs Temp 36.7 C 11/22/19 14:38 Pulse 68 11/22/19 14:38 Resp 16 11/22/19 14:38 BP 115/69 11/22/19 14:38 Pulse Ox 98 11/22/19 14:38 Testing Laboratory Results 11/22/19 05:53 11/22/19 05:53 PT 11.3 Seconds (9.0-12.0) 11/21/19 08:41 INR 1.1 (0.9-1.1) 11/21/19 08:41 APTT 47.4 Seconds (21.0-31.0) H* 11/20/19 16:46 Urine Color Yellow 11/20/19 20:10 Urine Appearance Clear (Clear) 11/20/19 20:10 Urine pH 5.0 (4.5-7.5) 11/20/19 20:10 Ur Specific Gaines 1.029 (1.000-1.030) 11/20/19 20:10 Urine Protein Negative (Negative) 11/20/19 20:10 Urine Glucose (UA) Negative (Negative) 11/20/19 20:10 Urine Ketones Negative (Negative) 11/20/19 20:10 Urine Nitrite Negative (Negative) 11/20/19 20:10 Ur Leukocyte Esterase Negative (Negative) 11/20/19 20:10 Blood Type O Positive 11/20/19 16:00 Antibody Screen NEGATIVE 11/20/19 16:00 11/20/19 16:05 Aerobic Blood Culture - Preliminary Blood No growth in Aerobic bottle after 24 hours. Anaerobic Blood Culture - Final 11/20/19 16:00 Aerobic Blood Culture - Preliminary Blood No growth in Aerobic bottle after 24 hours. Anaerobic Blood Culture - Preliminary No growth in Anaerobic bottle after 24 hours.
[2019-11-22] MEDS ORDERED: PROPOFOL IV EMULSION 10 MG/ML 20 ML VIAL IV ONE ×2 (15:31→16:02)
[2019-11-22] MEDS ORDERED: LIDOCAINE HCL 2% 2 ML VIAL/AMP(20MG/ML) INFIL ONE (15:31)
--- NOTE | 2019-11-22 15:32 | History & Physical Bridge Note ---
Date of Service November 22, 2019 History & Physical Bridge Note I have examined the patient, reviewed the History & Physical and in the interval since the performance of the History & Physical I have noted the following changes of clinical significance: no changes noted
[2019-11-22] MEDS ORDERED: ATROPINE SULFATE 0.1 MG/ML 10ML SYR IV PRN (15:42)
[2019-11-22] MEDS ORDERED: ePHEDrine sulfate 50 MG/ML AMP IV PRN (15:42)
--- NOTE | 2019-11-22 16:10 | Anesthesiology Progress Note ---
Date of Service November 22, 2019 Anesthesia Post Procedure Vital Signs Vital Signs: Temp Pulse Pulse Resp BP BP BP 11/22/19 14:38 36.7 C 68 16 115/69 11/22/19 11:44 36.8 C 85 20 98/63 L 11/22/19 08:00 99 H 11/22/19 07:40 37.0 C 88 18 110/64 11/22/19 04:13 36.6 C 88 18 99/66 L 11/21/19 23:59 90 11/21/19 23:33 37.0 C 88 17 96/66 L 11/21/19 19:19 36.8 C 89 18 108/70 11/21/19 17:26 36.5 C 90 15 83/57 L 11/21/19 16:56 36.5 C 89 16 88/62 L Pulse Ox 11/22/19 14:38 98 11/22/19 11:44 98 11/22/19 08:00 11/22/19 07:40 98 11/22/19 04:13 96 11/21/19 23:59 11/21/19 23:33 98 11/21/19 19:19 96 11/21/19 17:26 100 11/21/19 16:56 99 Transfer of Care Handoff Completed per policy Notes Mental Status: alert / awake / arousable Patient Amnestic to Procedure: Yes Nausea / Vomiting: adequately controlled Pain: adequately controlled Airway Patency, RR, SpO2: stable & adequate BP & HR: stable & adequate Hydration State: stable & adequate Anesthetic Complications: no major complications apparent and Pt Satisfied with anesthetic care
--- NOTE | 2019-11-22 16:58 | GI REPORT ---
Patient Name: Mauro Jaquez Procedure Date: 11/22/2019 3:34 PM Date of : 1950 Admit Type: Inpatient Age: 69 Gender: Male Attending MD: Andres Duggan MD Procedure: Colonoscopy Providers: Andres Duggan MD Referring MD: Riley Peres Indications: Rectal bleeding Medicines: Propofol per Anesthesia Complications: No immediate complications. Estimated Blood Loss: Estimated blood loss: none. Procedure: Pre-Anesthesia Assessment: - Prior to the procedure, a History and Physical was performed, and patient medications, allergies and sensitivities were reviewed. The patient's tolerance of previous anesthesia was reviewed. - The risks and benefits of the procedure and the sedation options and risks were discussed with the patient. All questions were answered and informed consent was obtained. - Patient identification and proposed procedure were verified prior to the procedure by the physician and the nurse. The procedure was verified in the procedure room. - Pre-procedure physical examination revealed no contraindications to sedation. After I obtained informed consent, the scope was passed under direct vision. Throughout the procedure, the patient's blood pressure, pulse, and oxygen saturations were monitored continuously. The scope was introduced through the anus and advanced to the terminal ileum. The colonoscopy was performed without difficulty. The patient tolerated the procedure well. The quality of the bowel preparation was good. The terminal ileum, ileocecal valve, appendiceal orifice, and rectum were photographed. Findings: The perianal and digital rectal examinations were normal. The terminal ileum appeared normal. Many small and large-mouthed diverticula were found in the sigmoid colon and ascending colon. No evidence of active bleeding. Non-bleeding internal hemorrhoids were found during retroflexion. The hemorrhoids were medium-sized. Impression: - The examined portion of the ileum was normal. - Diverticulosis in the sigmoid colon and in the ascending colon. No active bleeding. - Non-bleeding internal hemorrhoids. - No specimens collected. Recommendation: - Return [facility]. - Resume regular diet. - If bleeding recurs then obtain a bleeding scan, if positive then IR evaluation. Andres Duggan MD 11/22/2019 4:57:43 PM This report has been signed electronically. Note Initiated On: 11/22/2019 3:34 PM Number of Addenda: 0 I attest to the content of the Intraoperative Record and orders documented therein, exceptions below {[id number]}
[2019-11-22] MEDS: PANTOprazole 40 MG TAB PO SCH (21:51)
[2019-11-23 07:53] LABS: Albumin Level 2.9 gm/dl (3.4-5.0); BUN Creatinine Ratio 22.2 (10-20); Calcium 8.1 mg/dl (8.5-10.1); Est GFR (African American) 66.7; Est GFR (Non-African American) 57.6; Phosphorus 3.6 mg/dl (2.5-4.9); Potassium 4.1 mmol/L (3.5-5.1)
[2019-11-23 08:03] LABS: Basophils # (auto) 0.03 K/uL (0-0.2); Basophils % (auto) 0.4 %; Eosinophils # (auto) 0.34 K/uL (0-0.5); Eosinophils % (auto) 4.9 %; Hematocrit (blood only) 24.4 % (42-52); Hemoglobin 7.9 g/dL (14.0-18.0); Immature Granulocytes # (auto) 0.03 K/uL (0.00-0.02); Immature Granulocytes % (auto) 0.4 %; Lymphocytes # (auto) 0.93 K/uL (1.2-3.4); Lymphocytes % (auto) 13.4 %; Mean Corpuscular Hemoglobin 31.2 pg (25-34); Mean Corpuscular Hgb Conc 32.4 g/dL (32-36); Mean Corpuscular Volume 96.4 fL (80-100); Mean Platelet Volume 10.9 fL (7.4-10.4); Monocytes # (auto) 0.73 K/uL (0.11-0.59); Monocytes % (auto) 10.5 %; Neutrophils # (auto) 4.89 K/uL (1.4-6.5); Neutrophils % (auto) 70.4 %; Platelet Count 183 K/uL (130-400); RDW Coefficient of Variation 14.7 % (11.5-14.5); RDW Standard Deviation 50.5 fL (36.4-46.3); Red Blood Count 2.53 M/uL (4.7-6.1); White Blood Count 6.95 K/uL (4.8-10.8)
[2019-11-23 08:41] LABS: RBC Morphology Unremarkable
[2019-11-23] MEDS: METOPROLOL SUCC 25MG EXT REL TAB PO SCH (08:52)
[2019-11-23] MEDS: PANTOprazole 40 MG TAB PO SCH ×2 (08:52→20:38)
[2019-11-23] MEDS ORDERED: SODIUM CHLORIDE 0.9% 250 ML IV PRN ×2 (10:20→10:25)
[2019-11-23] MEDS ORDERED: POTASSIUM CHLORIDE 20 MEQ TABCR PO ONE (10:21)
--- NOTE | 2019-11-23 10:34 | Hospitalist Progress Note ---
Date of Service November 23, 2019 Assessment & Plan (1) Acute GI bleeding: Hb down to 7.9 this morning from 8.9 will transfuse 2 units PRBC with Lasix 40mg IV in between this will give him 3 units total BP is low normal, no longer hypotensive no signs of active bleeding, no BM at all in the past 24 hours since he completed bowel prep EGD on 11/21 with duodenal ulcer, non-bleeding, no stigmata of recent bleeding colonoscopy on 11/22 with diverticulosis, some old blood, raises possibility of diverticular bleed d/w Dr. Duggan, he recommends tagged RBC scan if there is signs of bleeding if he would be bleeding in colon region then would need transferred to [place] for IR embolization continue to hold Xarelto while work up for bleeding is completed remain on PCU due to heart history (2) Duodenal ulcer: no stigmata of recent bleeding Protonix 40mg BID, check stool for H pylori will need follow up EGD in 2 months to document healing (3) Acute hypotension: resolved after one unit of PRBC on 11/21 BP normally in the 90's systolic per patient, he has no symptoms this does not represent hemorrhagic shock (4) BALDERAS (dyspnea on exertion): multifactorial with chronic systolic heart failure, granulomatous lung changes but most likely cause of acute change would be anemia dyspnea correlated to blood loss and melena improved today transfuse two more units (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 status and relative hypotension. will continue the Toprol will give Lasix 40mg IV in between units today (8) NICM (nonischemic cardiomyopathy): See above (9) CKD (chronic kidney disease) stage 3, GFR 30-59 ml/min: Creatinine 1.33 upon admission, with range 1.35-1.42. K is down to normal at 4.1 Cr is 1.25 today, making adequate urine continue to hold, Spironolactone Lasix today (10) Paroxysmal atrial fibrillation: Anticoagulation with Xarelto being held. 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 For now, have nebulizers available to use PRN. no need for pulmonary consult. (12) Dyslipidemia: Holding atorvastatin (13) B12 deficiency anemia: Hold supplement while n.p.o. (14) Chronic systolic heart failure: (15) Acute blood loss anemia: Subjective patient feeling great, no issues over night no further signs of bleeding, actually no bowel movements since he completed bowel prep for the colonoscopy no nausea or vomiting, he is eating all of his meals no chest pain, no dyspnea, no fever/chills Hb dropped to 7.[address] Angelo, will give two units of PRBC with Lasix 40mg IV in between units updated his family at bedside Review of Systems Review of Systems: All systems reviewed & are unremarkable except as noted in HPI & below Respiratory: no cough and no dyspnea Cardiovascular: no chest pain and no edema Gastrointestinal: no abdominal pain, no nausea, no vomiting, no constipation, no diarrhea/loose stools, no blood in stools and no melena Physical Exam Constitutional: WD/WN, vitals as above Eyes: PERRL, conjunctivae normal, anicteric sclerae ENMT: external ear and nose normal, oropharynx normal Neck: trachea midline, no thyromegaly Respiratory: normal respiratory effort, lungs clear to auscultation Cardiovascular: RRR, no murmur, no edema Gastrointestinal (Abdomen): normal bowel sounds, soft, nontender, no hepatosplenomegaly Musculoskeletal: no cyanosis or clubbing, extremities motor strength 5/5 Skin: no rashes, warm and dry Neurologic: patellar DTR's 2+ bilat, sensation intact and PERRL, EOMI, accommodation nl, no face palsy, no dysarthria Psychiatric: A+Ox3, euthymic affect Lymphatic: no cervical or axillary lymphadenopathy Results & Data Vital Signs (Past 12 Hours) Vital Signs Temp Pulse Resp BP BP Pulse Ox 11/23/19 07:49 36.6 C 73 16 107/61 96 11/23/19 04:27 36.3 C L 87 18 94/54 L 95 11/23/19 00:25 101/67 11/23/19 00:11 36.7 C 80 18 86/58 L 95 Laboratory Results Laboratory Results - last 24 hr 11/23/19 11/23/19 06:30 06:30 WBC 6.95 RBC 2.53 L Hgb 7.9 L Hct 24.4 L MCV 96.4 MCH 31.2 MCHC 32.4 RDW Std Deviation 50.5 H RDW Coeff of Yogi 14.7 H Plt Count 183 MPV 10.9 H Immature Gran % (Auto) 0.4 Neut % (Auto) 70.4 Lymph % (Auto) 13.4 Gaston % (Auto) 10.5 Eos % (Auto) 4.9 Baso % (Auto) 0.4 Immature Gran # (Auto) 0.03 H Neut # (Auto) 4.89 Lymph # (Auto) 0.93 L Gaston # (Auto) 0.73 H Eos # (Auto) 0.34 Baso # (Auto) 0.03 RBC Morphology Unremarkable Sodium 140 Potassium 4.1 Chloride 111 H Carbon Dioxide 24 Anion Gap 5.0 BUN 28 H Creatinine 1.25 Est Cr Clr Drug Dosing 67.0 Est GFR ( Amer) 66.7 Est GFR (Non-Af Amer) 57.6 BUN/Creatinine Ratio 22.2 H Glucose 103 H Calcium 8.1 L Phosphorus 3.6 Albumin 2.9 L Medications Administered Current Inpatient Medications Albuterol (Duoneb) 3 ml NEB Q2H PRN PRN Reason: dyspnea Stop: 12/21/19 03:06 Sodium Chloride (Nss) 250 mls @ 15 mls/hr IV .[id number] PRN PRN Reason: For Transfusion Stop: 11/23/19 20:20 Furosemide 40 mg/ Syringe 4 mls @ 4 mls/min IV TODAY@1100 [facility] Stop: 11/23/19 18:00 Sodium Chloride (Nss) 250 mls @ 15 mls/hr IV .[id number] PRN PRN Reason: For Transfusion Stop: 11/23/19 20:25 Ioversol (Optiray 320 125ml) 116 ml IV ONCE PRN PRN Reason: Interaction Checking Stop: 11/24/19 16:54 Last Admin: 11/20/19 16:56 Dose: 116 ml Documented by: Metoprolol Succinate (Toprol Xl) 25 mg PO QAM [facility] Stop: 12/21/19 10:59 Last Admin: 11/23/19 08:52 Dose: 25 mg Documented by: Ondansetron HCl (Zofran) 4 mg IV Q6H PRN PRN Reason: Nausea Stop: 12/20/19 22:06 Pantoprazole Sodium (Protonix) 40 mg PO BID [facility] Stop: 12/22/19 20:59 Last Admin: 11/23/19 08:52 Dose: 40 mg Documented by: PG Care Time/CCT Total # of Minutes Spent Total Time Spent with Patient: Total time spent is greater than 50% in coordination of care (as documented) at patient's floor/unit and/or counseling patient: Coding Level of Care Code 95387 Subseq Hosp Care Lvl 3 Diagnoses Acute GI bleeding K92.2 Duodenal ulcer K26.9 Acute hypotension I95.9 BALDERAS (dyspnea on exertion) R06.09 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
[2019-11-23] MEDS ORDERED: FUROSEMIDE 40 MG in SYRINGE 0 ML IV SCH (11:00)
--- NOTE | 2019-11-23 12:39 | Cardiology Progress Note ---
Date of Service November 23, 2019 Assessment & Plan (1) Acute GI bleeding: Xarelto has been appropriately held in the setting of an active GI bleed with significant anemia, obviously I agree with this. Most recent pacer interrogations have revealed that the patient has not had any episodes of paroxysmal atrial fibrillation since his cardioversion in 2017, so, I believe he is a very low risk for cardioembolic event and will hold off on restarting the Xarelto from a cardiac standpoint until after the bleeding risk is acceptable. He will receive 2 more units of packed red blood cells today, would hold off reinstitution of Xarelto until hemoglobin level stabilized (2) BALDERAS (dyspnea on exertion): Likely secondary to anemia with baseline nonischemic cardiomyopathy Hemoglobin improved yesterday, however, now back down to 8.9. Given his lack of symptoms and pending colonoscopy would hold off on transfusing further at this time, unless no source of bleed is found by colonoscopy. (3) Encounter for pre-operative examination: Given the patient's history along with his current lack of cardiac symptoms he, his and sister were counseled that I would place him as a moderate risk for any adverse perioperative cardiovascular event with his wrist being approximately less than 5%. They were further counseled that no further cardiac testing or intervention would further lower that risk. The patient and his family state that they understand, they are accepting of that risk and wish to proceed with any necessary GI procedures. I see no need to delay from a cardiac standpoint. 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 Will defer to primary service. (6) Hypotension: Chronic Continue evidence-based beta-harriet We will consider restarting Entresto once hemoglobin stabilizes and hopefully blood pressure improves as well. We will hold off on restarting spironolactone at this time Subjective Patient seen and examined with family at bedside. States that he feels great and has not had any issues overnight. Denies any cardiac complaints of chest pain, shortness of breath, palpitations, lightheadedness, dizziness or syncope. Tolerated the colonoscopy without issue. Telemetry reviewed: Normal sinus rhythm without significant arrhythmia or ectopy. Review of Systems Review of Systems: All systems reviewed & are unremarkable except as noted in HPI & below Physical Exam Physical Exam: General: Awake, alert and oriented x 3. No acute distress. HEENT: Normocephalic, atraumatic. Pupils equal, round and reactive to light and accommodation. Extraocular muscles are intact. Anicteric sclera. Moist mucous membranes. Neck: No JVD. No bruit. Cardiovascular: Regular. Positive S-4. Normal S-1 and S-2. No S-3. No murmurs or rubs. Pulmonary: Clear to auscultation B/L. No rales, rhonchi or wheezing Abdomen: Bowel sounds x 4, soft. No rebound, guarding or tenderness. No organomegaly. Extremities: No clubbing, cyanosis or edema. +2 pedal pulses bilaterally. Skin: Warm and dry. Results & Data Vital Signs (Past 12 Hours) Vital Signs Temp Pulse Pulse Resp BP BP BP 11/23/19 12:32 36.6 C 84 20 105/61 11/23/19 12:15 36.6 C 84 18 104/64 11/23/19 07:49 36.6 C 73 16 107/61 11/23/19 04:27 36.3 C L 87 18 94/54 L Pulse Ox 11/23/19 12:32 95 11/23/19 12:15 95 11/23/19 07:49 96 11/23/19 04:27 95
[2019-11-24 06:15] LABS: Hematocrit (blood only) 29.3 % (42-52); Hemoglobin 9.8 g/dL (14.0-18.0); Mean Corpuscular Hemoglobin 31.4 pg (25-34); Mean Corpuscular Hgb Conc 33.4 g/dL (32-36); Mean Corpuscular Volume 93.9 fL (80-100); Mean Platelet Volume 11.1 fL (7.4-10.4); Platelet Count 183 K/uL (130-400); RDW Coefficient of Variation 14.8 % (11.5-14.5); RDW Standard Deviation 49.4 fL (36.4-46.3); Red Blood Count 3.12 M/uL (4.7-6.1); White Blood Count 7.26 K/uL (4.8-10.8)
[2019-11-24 06:51] LABS: Calcium 8.6 mg/dl (8.5-10.1); Creatinine Clr Calc Pharmacy 64.4 ml/min; Est GFR (African American) 63.6; Est GFR (Non-African American) 54.9; Potassium 3.9 mmol/L (3.5-5.1)
[2019-11-24] MEDS: METOPROLOL SUCC 25MG EXT REL TAB PO SCH (07:49)
[2019-11-24] MEDS: PANTOprazole 40 MG TAB PO SCH ×2 (07:50→21:06)
[2019-11-24] MEDS ORDERED: SPIRONOLACTONE 25 MG TAB PO SCH (09:45)
[2019-11-24] MEDS: FUROSEMIDE 20 MG TAB PO SCH (10:43)
--- NOTE | 2019-11-24 11:25 | Cardiology Progress Note ---
Date of Service November 24, 2019 Assessment & Plan (1) Acute GI bleeding: Xarelto has been appropriately held in the setting of an active GI bleed with significant anemia, obviously I agree with this. Most recent pacer interrogations have revealed that the patient has not had any episodes of paroxysmal atrial fibrillation since his cardioversion in 2017, so, I believe he is a very low risk for cardioembolic event and will hold off on restarting the Xarelto from a cardiac standpoint until after the bleeding risk is acceptable. Hemoglobin is stabilized, will follow (2) BALDERAS (dyspnea on exertion): Likely secondary to anemia with baseline nonischemic cardiomyopathy No recurrent symptoms with ambulation in the room. (3) Encounter for pre-operative examination: Given the patient's history along with his current lack of cardiac symptoms he, his and sister were counseled that I would place him as a moderate risk for any adverse perioperative cardiovascular event with his wrist being approximately less than 5%. They were further counseled that no further cardiac testing or intervention would further lower that risk. The patient and his family state that they understand, they are accepting of that risk and wish to proceed with any necessary GI procedures. I see no need to delay from a cardiac standpoint. 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 Will defer to primary service. (6) Hypotension: Chronic Continue evidence-based beta-harriet We will consider restarting Entresto once hemoglobin stabilizes and hopefully blood pressure improves as well. We will hold off on restarting spironolactone at this time Subjective Patient seen and examined, states that he feels well. Has no complaints whatsoever and specifically denies any chest pain, shortness of breath, palpitations, lightheadedness, dizziness or syncope. He has not had a bowel movement since colonoscopy. Telemetry reviewed: Sinus rhythm and atrially paced rhythm alternating no arrhythmias. Review of Systems Review of Systems: All systems reviewed & are unremarkable except as noted in HPI & below Physical Exam Physical Exam: General: Awake, alert and oriented x 3. No acute distress. HEENT: Normocephalic, atraumatic. Pupils equal, round and reactive to light and accommodation. Extraocular muscles are intact. Anicteric sclera. Moist mucous membranes. Neck: No JVD. No bruit. Cardiovascular: Regular. Positive S-4. Normal S-1 and S-2. No S-3. No murmurs or rubs. Pulmonary: Clear to auscultation B/L. No rales, rhonchi or wheezing Abdomen: Bowel sounds x 4, soft. No rebound, guarding or tenderness. No organomegaly. Extremities: No clubbing, cyanosis or edema. +2 pedal pulses bilaterally. Skin: Warm and dry. Results & Data Vital Signs (Past 12 Hours) Vital Signs Temp Pulse Pulse Resp BP Pulse Ox 11/24/19 07:33 36.7 C 85 18 101/75 95 11/24/19 03:58 36.3 C L 89 123/77 94 11/24/19 00:26 81 11/23/19 23:36 36.6 C 84 127/71 95
--- NOTE | 2019-11-24 14:24 | Hospitalist Progress Note ---
Date of Service November 24, 2019 Assessment & Plan (1) Acute GI bleeding: Hb down to 7.9 on 11/23 transfused 2 units PRBC with Lasix 40mg IV in between this gave him 3 units total Hb up to 9.8 today, appropriate response to 2 units, BP stable no signs of active bleeding, no BM at all in the past 48 hours since he completed bowel prep EGD on 11/21 with duodenal ulcer, non-bleeding, no stigmata of recent bleeding colonoscopy on 11/22 with diverticulosis, some old blood, raises possibility of diverticular bleed d/w Dr. Duggan on 11/23, he recommends tagged RBC scan if there is any sign of recurrent bleeding if he would be bleeding in colon region then would need transferred to [place] for IR embolization since Hb stable and no bleeding for 48 hours, we will resume Xarelto this evening, monitor for bleeding remain on PCU due to heart history (2) Duodenal ulcer: no stigmata of recent bleeding Protonix 40mg BID, check stool for H pylori will need follow up EGD in 2 months to document healing (3) Acute hypotension: resolved after one unit of PRBC on 11/21 BP normally in the 90's systolic per patient, he has no symptoms this does not represent hemorrhagic shock (4) BALDERAS (dyspnea on exertion): multifactorial with chronic systolic heart failure, granulomatous lung changes but most likely cause of acute change would be anemia dyspnea correlated to blood loss and melena this issue is largely resolved after getting three units of blood encouraged him to ambulate in the hallway (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 For now, have nebulizers available to use PRN. no need for pulmonary consult. (12) Dyslipidemia: Holding atorvastatin (13) B12 deficiency anemia: Hold supplement while n.p.o. (14) Chronic systolic heart failure: (15) Acute blood loss anemia: Subjective patient feels great, no complaints at all continues to eat well, no BM for two days since bowel prep encouraged him to get up and walk around the halls today reviewed labs, Hb is up to 9.8, BP is acceptable Cr is 1.3, K is 2.[address] Angelo no signs of bleeding, Hb stable, will resume Xarelto this evening and monitor continue to hold the Entresto and Spironolactone for time being Review of Systems Review of Systems: All systems reviewed & are unremarkable except as noted in HPI & below Physical Exam Constitutional: WD/WN, vitals as above Eyes: PERRL, conjunctivae normal, anicteric sclerae ENMT: external ear and nose normal, oropharynx normal Neck: trachea midline, no thyromegaly Respiratory: normal respiratory effort, lungs clear to auscultation Cardiovascular: RRR, no murmur, no edema Gastrointestinal (Abdomen): normal bowel sounds, soft, nontender, no hepatosplenomegaly Musculoskeletal: no cyanosis or clubbing, extremities motor strength 5/5 Skin: no rashes, warm and dry Neurologic: patellar DTR's 2+ bilat, sensation intact and PERRL, EOMI, accommodation nl, no face palsy, no dysarthria Psychiatric: A+Ox3, euthymic affect Lymphatic: no cervical or axillary lymphadenopathy Results & Data Vital Signs (Past 12 Hours) Vital Signs Temp Pulse Resp BP Pulse Ox 11/24/19 12:04 36.4 C L 85 20 97/61 L 97 11/24/19 07:33 36.7 C 85 18 101/75 95 11/24/19 03:58 36.3 C L 89 123/77 94 Laboratory Results Laboratory Results - last 24 hr 11/23/19 11/24/19 11/24/19 10:35 05:47 05:47 WBC 7.26 RBC 3.12 L Hgb 9.8 L Hct 29.3 L MCV 93.9 MCH 31.4 MCHC 33.4 RDW Std Deviation 49.4 H RDW Coeff of Yogi 14.8 H Plt Count 183 MPV 11.1 H Sodium 141 Potassium 3.9 Chloride 108 H Carbon Dioxide 28 Anion Gap 5.0 BUN 26 H Creatinine 1.30 Est Cr Clr Drug Dosing 64.4 Est GFR ( Amer) 63.6 Est GFR (Non-Af Amer) 54.9 BUN/Creatinine Ratio 20.0 Glucose 107 H Calcium 8.6 Blood Type O Positive Antibody Screen NEGATIVE Crossmatch See Detail Medications Administered Current Inpatient Medications Albuterol (Duoneb) 3 ml NEB Q2H PRN PRN Reason: dyspnea Stop: 12/21/19 03:06 Furosemide (Lasix) 20 mg PO QAM [facility] Stop: 12/24/19 09:44 Last Admin: 11/24/19 10:43 Dose: 20 mg Documented by: Ioversol (Optiray 320 125ml) 116 ml IV ONCE PRN PRN Reason: Interaction Checking Stop: 11/24/19 16:54 Last Admin: 11/20/19 16:56 Dose: 116 ml Documented by: Metoprolol Succinate (Toprol Xl) 50 mg PO QAM [facility] Stop: 12/25/19 08:59 Ondansetron HCl (Zofran) 4 mg IV Q6H PRN PRN Reason: Nausea Stop: 12/20/19 22:06 Pantoprazole Sodium (Protonix) 40 mg PO BID [facility] Stop: 12/22/19 20:59 Last Admin: 11/24/19 07:50 Dose: 40 mg Documented by: Rivaroxaban (Xarelto) 20 mg PO PM [facility] Stop: 12/24/19 20:59 Sacubitril/Valsartan (Entresto 49/51mg) 1 tab PO BID [facility] Stop: 12/24/19 20:59 PG Care Time/CCT Total # of Minutes Spent Total Time Spent with Patient: Total time spent is greater than 50% in coordin ation of care (as documented) at patient's floor/unit and/or counseling patient: Coding Level of Care Code 67336 Subseq Hosp Care Lvl 3 Diagnoses Acute GI bleeding K92.2 Duodenal ulcer K26.9 Acute hypotension I95.9 BALDERAS (dyspnea on exertion) R06.09 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
[2019-11-24] MEDS ORDERED: RIVAROXABAN 20 MG TAB PO SCH (16:30)
[2019-11-24] MEDS ORDERED: SACUBITRIL-VALSARTAN 49/51 MG TAB PO SCH (21:00)
--- NOTE | 2019-11-25 07:47 | Anesthesiology Progress Note ---
Date of Service November 25, 2019 Anesthesia Post Procedure Vital Signs Vital Signs: Temp Pulse Pulse Resp BP BP Pulse Ox 11/25/19 07:26 36.7 C 81 18 95/74 L 96 11/25/19 03:55 37.0 C 85 18 112/73 95 11/24/19 23:53 78 11/24/19 23:42 36.5 C 81 18 102/56 L 95 11/24/19 19:19 36.6 C 82 18 105/70 96 11/24/19 15:11 36.6 C 81 19 96/74 L 95 11/24/19 12:04 36.4 C L 85 20 97/61 L 97 Notes Mental Status: alert / awake / arousable Patient Amnestic to Procedure: Yes Nausea / Vomiting: adequately controlled Pain: adequately controlled Airway Patency, RR, SpO2: stable & adequate BP & HR: stable & adequate Hydration State: stable & adequate Anesthetic Complications: no major complications apparent and Pt Satisfied with anesthetic care
[2019-11-25] MEDS: PANTOprazole 40 MG TAB PO SCH (08:48)
[2019-11-25] MEDS: FUROSEMIDE 20 MG TAB PO SCH (08:49)
[2019-11-25] MEDS ORDERED: METOPROLOL SUCC 50MG EXT REL TAB PO SCH (09:00)
[2019-11-25 09:28] LABS: Basophils # (auto) 0.03 K/uL (0-0.2); Basophils % (auto) 0.4 %; Eosinophils # (auto) 0.37 K/uL (0-0.5); Eosinophils % (auto) 4.5 %; Hematocrit (blood only) 30.7 % (42-52); Hemoglobin 10.1 g/dL (14.0-18.0); Immature Granulocytes # (auto) 0.04 K/uL (0.00-0.02); Immature Granulocytes % (auto) 0.5 %; Lymphocytes # (auto) 1.12 K/uL (1.2-3.4); Lymphocytes % (auto) 13.6 %; Mean Corpuscular Hemoglobin 31.3 pg (25-34); Mean Corpuscular Hgb Conc 32.9 g/dL (32-36); Mean Platelet Volume 11.1 fL (7.4-10.4); Monocytes # (auto) 0.81 K/uL (0.11-0.59); Monocytes % (auto) 9.8 %; Neutrophils # (auto) 5.89 K/uL (1.4-6.5); Neutrophils % (auto) 71.2 %; Platelet Count 194 K/uL (130-400); RDW Coefficient of Variation 14.4 % (11.5-14.5); RDW Standard Deviation 48.3 fL (36.4-46.3); Red Blood Count 3.23 M/uL (4.7-6.1); White Blood Count 8.26 K/uL (4.8-10.8)
[2019-11-25 09:52] LABS: BUN Creatinine Ratio 14.7 (10-20); Calcium 8.7 mg/dl (8.5-10.1); Creatinine Clr Calc Pharmacy 62.9 ml/min; Est GFR (African American) 61.9; Est GFR (Non-African American) 53.4
--- NOTE | 2019-11-25 12:55 | Cardiology Progress Note ---
Date of Service November 25, 2019 Assessment & Plan (1) Acute GI bleeding: Hemoglobin is now stabilized with an unremarkable GI work-up to this point with the exception of possible bleeding hiatal hernia. Has received first dose of Xarelto on 11/24 and again hemoglobin remained stable. (2) BALDERAS (dyspnea on exertion): Likely secondary to anemia with baseline nonischemic cardiomyopathy No recurrent symptoms with ambulation in the room. (3) Encounter for pre-operative examination: Given the patient's history along with his current lack of cardiac symptoms he, his and sister were counseled that I would place him as a moderate risk for any adverse perioperative cardiovascular event with his wrist being approximately less than 5%. They were further counseled that no further cardiac testing or intervention would further lower that risk. The patient and his family state that they understand, they are accepting of that risk and wish to proceed with any necessary GI procedures. I see no need to delay from a cardiac standpoint. (4) NICM (nonischemic cardiomyopathy): Improving with goal-directed medical therapy as an outpatient Should be discharged home on his previous dose of Entresto, however, would hold spironolactone reinitiation until seen as an outpatient. My office will call to arrange follow-up in the cardiology clinic in the next 1 to 2 weeks. 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 Will defer to primary service. (6) Hypotension: Chronic Continue evidence-based beta-harriet We will consider restarting Entresto once hemoglobin stabilizes and hopefully blood pressure improves as well. We will hold off on restarting spironolactone at this time Subjective Patient seen and examined with family at bedside. Patient states he feels great. No complaints overnight specifically denying any chest pain, shortness of breath, palpitations, lightheadedness, dizziness or syncope. Telemetry reviewed: Normal sinus rhythm alternating with an atrially paced rhythm. Review of Systems Review of Systems: All systems reviewed & are unremarkable except as noted in HPI & below Physical Exam Physical Exam: General: Awake, alert and oriented x 3. No acute distress. HEENT: Normocephalic, atraumatic. Pupils equal, round and reactive to light and accommodation. Extraocular muscles are intact. Anicteric sclera. Moist mucous membranes. Neck: No JVD. No bruit. Cardiovascular: Regular. Positive S-4. Normal S-1 and S-2. No S-3. No murmurs or rubs. Pulmonary: Clear to auscultation B/L. No rales, rhonchi or wheezing Abdomen: Bowel sounds x 4, soft. No rebound, guarding or tenderness. No organomegaly. Extremities: No clubbing, cyanosis or edema. +2 pedal pulses bilaterally. Skin: Warm and dry. Results & Data Vital Signs (Past 12 Hours) Vital Signs Temp Pulse Resp BP BP Pulse Ox 11/25/19 11:17 36.5 C 81 19 113/75 95 11/25/19 07:26 36.7 C 81 18 95/74 L 96 11/25/19 03:55 37.0 C 85 18 112/73 95
--- NOTE | 2019-11-25 13:16 | Discharge Summary ---
Date of Service November 25, 2019 Admission HPI Per Admitting Provider The patient is a 69-year-old male with a past medical history including pulmonary embolism, pulmonary nodule, nonischemic cardiomyopathy, CAD, CKD, B12 deficiency anemia, paroxysmal atrial fibrillation and pneumonia. He presents to the emergency department with 3 days of abdominal discomfort, change in stool, shortness of breath and BALDERAS. He is color blind, so unable to tell it there is blood in stool. Discharge Data Allergies Allergy/AdvReac Type Severity Reaction Status Date / Time diphtheria toxoid,fluid Allergy Severe CONVULSIONS--HORSE Verified 11/22/19 14:34 SERUM BASE tetanus toxoid, adsorbed Allergy Severe CONVULSIONS--HORSE Verified 11/22/19 14:34 SERUM BASE Consultations 11/20/19 19:01 ED Decision to Admit Stat 11/20/19 22:07 Consult Cardiology Routine Consult Case Management - Discharge Planning Routine Consult Gastroenterology Routine Procedures Performed Operation Date: 11/21/19 17:00 Actual Procedures p Esophagogastroduodenoscopy - Andres Duggan MD Operation Date: 11/22/19 16:30 Actual Procedures p Colonoscopy(Not Applicable) - Andres Duggan MD Ordered Studies 11/20/19 16:24 CT abd pelvis IV con only Stat CT angio chest PE protocol Stat Hospital Course (1) Acute GI bleeding: Hb down to 7.9 on 11/23 transfused 2 units PRBC with Lasix 40mg IV in between this gave him 3 units total Hb up to 9.8 today, appropriate response to 2 units, BP stable no signs of active bleeding, no BM at all in the past 48 hours since he completed bowel prep EGD on 11/21 with duodenal ulcer, non-bleeding, no stigmata of recent bleeding colonoscopy on 11/22 with diverticulosis, some old blood, raises possibility of diverticular bleed d/w Dr. Duggan on 11/23, he recommends tagged RBC scan if there is any sign of recurrent bleeding if he would be bleeding in colon region then would need transferred to [place] for IR embolization since Hb stable and no bleeding for 48 hours, we will resume Xarelto this evening, monitor for bleeding remain on PCU due to heart history (2) Duodenal ulcer: no stigmata of recent bleeding Protonix 40mg BID, check stool for H pylori will need follow up EGD in 2 months to document healing (3) Acute hypotension: resolved after one unit of PRBC on 11/21 BP normally in the 90's systolic per patient, he has no symptoms this does not represent hemorrhagic shock (4) BALDERAS (dyspnea on exertion): multifactorial with chronic systolic heart failure, granulomatous lung changes but most likely cause of acute change would be anemia dyspnea correlated to blood loss and melena this issue is largely resolved after getting three units of blood encouraged him to ambulate in the hallway (5) detention (current) use of anticoagulants: resume Xarelto this evening monitor for bleeding (6) Pulmonary embolism: resume Xarelto this evening (7) CAD (coronary artery disease): CAD/nonischemic cardiomyopathy- hold Entresto and spironolactone until okay to resume by cardiology will continue the Toprol resume Lasix daily (8) NICM (nonischemic cardiomyopathy): See above (9) CKD (chronic kidney disease) stage 3, GFR 30-59 ml/min: Creatinine 1.33 upon admission, with range 1.35-1.42. 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 For now, have nebulizers available to use PRN. no need for pulmonary consult. (12) Dyslipidemia: Holding atorvastatin (13) B12 deficiency anemia: Hold supplement while n.p.o. (14) Chronic systolic heart failure: (15) Acute blood loss anemia: Discharge Plan Discharge Items Patient Disposition: Home - Self-Care Reason For Visit: UGI BLEED,SYMPTOMATIC ANEMIA Discharge Diagnosis: Upper GI Bleeding, Duodenal ulcer Condition on Discharge: Good Activity: Resume your previous activity Bathing: No limitations Non-emergency contact: Primary Care Provider, [employer] Sales Manager and Fabrication Technician Call non-emergency contact if: you have any medication questions and your symptoms worsen Follow-up/Referrals: Kinga Diaz MD [Primary Care Provider] - 11/29/19 10:00 am (Please, follow up with Dr. Diaz on MondayNovember 29 at 10:00 am. *If you need to change this appointment, call the office at [phone].) Ja Trejo DO [Bakery And Deli Sales Manager] - (Dr. Trejo's office should contact you in the next 1-2 weeks to schedule a follow up appointment.) Andres Duggan MD [Hospitalist] - (You will need a repeat EGD to take another look at the site where your ulcer was in 2 months to ensure it has healed. ) Diet: Heart Healthy and Low Sodium (2gm) Diet Comment: [place] diet Addtl Attending Provider Instructions: You were found to have an ulcer in your small intestine (the duodenum). It is important to take the antacid called Protonix 0mg twice a day for at least 2 months to help the ulcer heal. It is ok to continue taking your Xarelto and you should have your blood count checked with labs in 2-3 days. Your spironolactone is being held for now until you see the Bakery And Deli Sales Manager in the office. If you develop large amounts of black tarry stool or red blood in your stool, please return right away to the hospital. You may have some small amounts of old black blood with your next bowel movement, but if it's more than a small amount, you should get checked out. Follow up with the GI doctor in 2 months to repeat your EGD. Follow up with Cardiology within 1-2 weeks, and follow up with your PCP on Monday as scheduled for you. Pending Studies at Discharge: No Stand-Alone Forms: My [facility] Medications and DC Order Prescriptions: New pantoprazole 40 mg Tablet,Delayed Release (Dr/Ec) 40 mg PO BID Qty: 60 RF: 0 Continued atorvastatin 40 mg Tablet 40 mg PO PM RF: 0 furosemide 20 mg Tablet 20 mg PO QAM RF: 0 Xarelto 20 mg Tablet 20 mg PO PM RF: 0 Entresto 49-51 mg Tablet 1 tab PO BID RF: 0 metoprolol succinate 50 mg Capsule,Sprinkle,Er 24hr 50 mg PO QAM RF: 0 cyanocobalamin (vitamin B-12) [Vitamin B-12] 1,000 mcg Tablet 1,000 mcg PO DAILY RF: 0 cholecalciferol (vitamin D3) [Vitamin D3] 25 mcg (1,000 unit) Capsule 2,000 unit PO DAILY RF: 0 Discontinued spironolactone 25 mg Tablet 12.5 mg PO QAM RF: 0 Discharge Orders: Discharge Order (Routine); Ordered 11/25/19 Ordered By: Kristal Barreto Admission Data Admit Date/Time: 11/20/19 20:59 Attending Provider: Kristal Barreto Admit Provider: Remy Asher Primary Care Provider: Kinga Diaz Other Providers: Remy Asher ; Ja Trejo ; Pieter Nathan Coding Diagnoses Acute GI bleeding K92.2 Duodenal ulcer K26.9 Acute hypotension I95.9 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
== END 2019-11-25 14:15 | disposition home or self-care (01) | DRG 378 ==
LOC: ED 14:45 → SUATTDRO 20:59 → 2E 20:59

== ENCOUNTER 2021-12-28 10:30 | Inpatient (IN) ==
[2021-12-28] MEDS ORDERED: ALBUT/IPRATROP 3MG/0.5MG NEB 3 ML VIAL NEB STA (10:43)
[2021-12-28] MEDS ORDERED: CEFEPIME 2,000 MG/20 ML VIAL IV STA (10:43)
[2021-12-28] MEDS ORDERED: methylPREDNISolone 125 MG/2 ML VIAL IV STA (10:46)
--- NOTE | 2021-12-28 10:50 | Emergency Department Note ---
Impression & Plan Hypoxia, CHF (congestive heart failure), SOB (shortness of breath), Tachypnea ED Provider Note PatientNAME: CRISTOBAL OVIEDO JR AGE: 71 SEX: M : 1950 ARRIVES VIA: Walk-In INFORMANT: [Patient][family] ED PROVIDER(S): [Be Olson MD] CHIEF COMPLAINT: Short of breath HISTORY OF PRESENT ILLNESS: The patient is a 71-year-old male who states that he has had some issues with his breathing for a few months but, things have really worsening over the last few days. He is more short of breath with any type of exertion. He is coughing and the cough is productive. There has been no fever, no chest pain. No sick contacts. The patient is vaccinated for COVID-19, no flu vaccination. The patient saw his doctor about a week ago, he was given Augmentin and prednisone. These medications have not made any improvements in his breathing. Of note, at triage, the patient's O2 saturation was in the 70s, he does not typically wear oxygen. His O2 saturation improved with nasal cannula oxygen. REVIEW OF SYSTEMS: See HPI for pertinent positives and negatives. A total of ten systems were reviewed and were otherwise negative. PMHx/PSHx: See Below SOCIAL HISTORY: See Below. PHYSICAL EXAM: GENERAL: Patient is in mild respiratory distress. HEENT: No acute trauma, normocephalic atraumatic, mucous membranes moist, no nasal congestion, no scleral icterus. NECK: No stridor, no adenopathy, no meningismus, trachea is midline. LUNGS: Diminished breath sounds bilaterally. A few wheezes and a few crackers heard bilaterally. Increased respiratory rate. Mild respiratory stress noted. Dry cough noted. HEART: Mildly tachycardic, regular rhythm, no murmurs. ABDOMEN: Soft, nontender, bowel sounds positive, no hernias, no peritonitis. EXTREMITIES: No cyanosis, mild bilateral pedal edema, full range of motion of all the joints without pain or difficulty, no signs for acute trauma. NEUROLOGIC: Oriented x 3, no acute motor or sensory deficits, no focal weakness. SKIN: No rash, no jaundice, no diaphoresis. DIFFERENTIAL DIAGNOSIS: Reactive airway disease, influenza, COVID-19, pneumonia, pneumothorax, COPD, CHF, infection, cardiac ischemia, pulmonary embolism, bronchitis, musculoskeletal, gastrointestinal, as well as other pathologies. EMERGENCY DEPARTMENT COURSE/PROCEDURES: ECG: Indication was shortness of breath. The ECG shows what appears to be a sinus tachycardia with PVCs. Some atrial pacing was seen. Baseline artifact is noted. The rate is 105. No ST elevation. Potential old inferior infarct noted. QTc is 420. Continuous Cardiac Monitoring: An order was placed for continuous cardiac monitoring. The monitor shows a rate of 92 with sinus rhythm with PVCs. Critical Care Note: I have personally spent 45 minutes of critical care time in the direct management of this patient. This includes bedside care, interpretation of diagnostic studies, and testing, discussion with consultants, patient, and family members, and other required patient management activities. This 45 minutes is in excess of all separately billable procedures. MEDICAL DECISION MAKING: There is a moderate leukocytosis, this could be consistent with infection or his recent steroid use. No worrisome anemia. There was a normal platelet count. INR was a bit elevated at 1.5. ABG demonstrates a respiratory alkalosis, he was overbreathing. Renal panel testing shows some renal insufficiency which has been documented before. Magnesium was a bit low at 1.5. Lactic acid level was elevated consistent with infection or just his hypoxia. There were some liver enzyme elevations. BNP was elevated consistent with fluid overload. Influenza and Covid testing returned negative. Chest film shows what appears to be CHF on top of some chronic lung disease. There was no focal pneumonia seen. No pneumothorax. ECG shows sinus tachycardia with some PVCs and paced atrial beats There was no obvious acute ischemia. Cardiac enzyme testing x1 is not consistent with acute cardiac injury. The patient was in some mild respiratory distress. He was tachypneic. He received IV cefepime as empiric antibiotic coverage. He received IV Solu- Medrol, IV magnesium, IV Lasix. He was placed on BiPAP and given a DuoNeb. The patient does feel improved since the above treatment. He seems more comfortable. His tachypnea has improved. The patient is in need of a hospital stay. I suspect he is fluid overloaded. There may be a component of bronchospasm here as well. I spoke with the patient and case management. The on-call hospitalist was consulted. Past Med/Surg History Medical History (Updated 12/28/21 @ 16:07 by Be Olson MD) Acute blood loss anemia Acute GI bleeding Atrial fibrillation dx 2016 - follows w/ Dr. Trejo Congestive heart failure Deep vein thrombosis RLE - 2016 dx while hospitalized w/ pneumonia Duodenal ulcer Hearing deficit [facility] Hematoma of left lower extremity Osteoarthritis Pneumonia Pulmonary embolism 2016 - dx while hospitalized w/ pneumonia - on xarelto Surgical History History of appendectomy History of cardiac catheterization 2016 - [place] - no stents History of cardioversion 11/08/2016 History of carpal tunnel release of both wrists History of cataract surgery History of colonoscopy History of esophagogastroduodenoscopy (EGD) History of evacuation of hematoma LLE History of shoulder surgery Left 2005 History of tonsillectomy Presence of combination internal cardiac defibrillator (ICD) and pacemaker placed 2017 - [employer] - last checked 1 year ago - follows w/ dr. yeh Family History Mother Diabetes Grandfather (Paternal) No problems noted. Father Lymphoma Grandfather (Maternal) Myocardial infarction Other No family history of adverse response to anesthesia Denies family history of Ovarian cancer Prostate cancer Heart disease Breast cancer Colorectal cancer Social History Smoking Status: Former smoker Tobacco Type: Cigarettes Age Quit Using Tobacco: 53; Cigarettes Per Day: 1 pack a day; Second Hand Exposure: No; Hx Alcohol Use: No Hx Substance Use: No Preferred Language: [place] Communication Ability: Effective Visual Impairment: Limited Hearing Ability: Use of Hearing Aid Eligibility And Occupancy Interviewer Required: No Beliefs That Will Affect Care: None marital status: Current Living Situation: Spouse current occupational status: retired 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[employer] How many Children do You have: 0 Feels Safe at Home: Yes Childhood Exposure to Second-Hand Smoke: Yes (dad did ) caffeine: Yes (cup of coffee in morning ) Dental Care, Regularly: No Physical Activity Frequency: Does not Exercise Seatbelt Use: always Sunscreen Use: No (doesn't go out in sun ) Assistive Devices: Glasses, Hearing Aid - Left and Hearing Aid - Right Allergies Allergies Allergy/AdvReac Type Severity Reaction Status Date / Time diphtheria toxoid,fluid Allergy Severe CONVULSIONS--HORSE Verified 12/28/21 13:07 SERUM BASE tetanus toxoid, adsorbed Allergy Severe CONVULSIONS--HORSE Verified 12/28/21 13:07 SERUM BASE Home Meds Home Medications Medication Instructions Recorded Confirmed atorvastatin 40 mg tablet 40 mg PO HS 10/29/19 12/28/21 rivaroxaban 20 mg tablet (Xarelto) 20 mg PO HS 10/29/19 12/28/21 sacubitril 49 mg-valsartan 51 mg 1 tab PO BID 10/29/19 12/28/21 tablet (Entresto) cholecalciferol (vitamin D3) 25 2,000 unit PO QDL 11/20/19 12/28/21 mcg (1,000 unit) capsule (Vitamin D3) cyanocobalamin (vitamin B-12) 1,000 mcg PO QDL 11/20/19 12/28/21 1,000 mcg tablet (Vitamin B-12) folic acid 1 mg tablet 1 mg PO QDL 06/08/20 12/28/21 metoprolol succinate 50 mg 50 mg PO BID tab 01/04/21 12/28/21 tablet,extended release 24 hr cetirizine 10 mg tablet (Zyrtec) 5 mg PO QAM 08/16/21 12/28/21 pantoprazole 20 mg tablet,delayed 20 mg PO DAILYBB 09/21/21 12/28/21 release spironolactone 25 mg tablet 12.5 mg PO QAM 09/21/21 12/28/21 furosemide 40 mg tablet 40 mg PO BID 12/28/21 12/28/21 Previous Rx's Medication Instructions Recorded albuterol sulfate 90 mcg/actuation 2 inh INHALATION Q4H PRN #8.5 g 09/21/21 aerosol inhaler Results & Data (ED) Vital Signs Vital Signs - 24 hr 12/28/21 10:30 12/28/21 10:34 12/28/21 10:45 Temperature 36.6 C Temperature Source Temporal Artery Scan Pulse Rate 92 H Pulse Rate [Left Apical] Pulse Rhythm Regular Pulse Strength Normal Respiratory Rate 30 H Respiratory Effort / Characteristics Short of Breath Spontaneous Respiratory Depth Normal Respiratory Pattern Regular Blood Pressure 126/69 Blood Pressure [Right Arm] Blood Pressure Mean 88 Blood Pressure Mean [Right Arm] Blood Pressure Position [Right Arm] Pulse Oximetry 77 L 90 92 Oxygen Delivery Method Room Air Nasal Cannula Non-rebreather Oxygen Flow Rate 6 15 Fraction of Inspired Oxygen Sepsis Recent Fever Within 48 Hours No Sepsis New/Unexplained Change in Mental Status No Sepsis Action Taken by Nursing No Action Required 12/28/21 11:06 12/28/21 12:00 12/28/21 12:21 Temperature Temperature Source Pulse Rate Pulse Rate [Left Apical] 103 H 94 H Pulse Rhythm Pulse Strength Respiratory Rate 33 H 22 31 H Respiratory Effort / Characteristics Spontaneous Short of Breath Non-Labored Spontaneous Non-Labored Spontaneous Respiratory Depth Normal Normal Normal Respiratory Pattern Tachypnea Regular Blood Pressure Blood Pressure [Right Arm] 99/61 L 99/61 L Blood Pressure Mean Blood Pressure Mean [Right Arm] 73 73 Blood Pressure Position [Right Arm] Lying Pulse Oximetry 94 100 100 Oxygen Delivery Method BiPAP BiPAP Oxygen Flow Rate Fraction of Inspired Oxygen 60 Sepsis Recent Fever Within 48 Hours Sepsis New/Unexplained Change in Mental Status Sepsis Action Taken by Snf Medications Current Medication List: was personally reviewed by me Laboratory Data Attestation: I reviewed the patient's lab results. Result diagrams: 12/28/21 10:43 12/28/21 10:43 Lab Results 12/28/21 12/28/21 12/28/21 Range/Units 10:43 10:43 10:43 WBC 17.01 H (4.8-10.8) K/uL RBC 4.28 L (4.7-6.1) M/uL Hgb 13.4 L (14.0-18.0) g/dL Hct 41.2 L (42-52) % MCV 96.3 (80-100) fL MCH 31.3 (25-34) pg MCHC 32.5 (32-36) g/dL RDW Std Deviation 55.0 H (36.4-46.3) fL RDW Coeff of Yogi 15.7 H (11.5-14.5) % Plt Count 242 (130-400) K/uL MPV 10.8 H (7.4-10.4) fL Immature Gran % (Auto) 0.5 % Neut % (Auto) 83.1 % Lymph % (Auto) 3.4 % Dale % (Auto) 7.7 % Eos % (Auto) 5.2 % Baso % (Auto) 0.1 % Neut # (Auto) 14.12 H (1.4-6.5) K/uL Lymph # (Auto) 0.58 L (1.2-3.4) K/uL Dale # (Auto) 1.31 H (0.11-0.59) K/uL Eos # (Auto) 0.89 H (0-0.5) K/uL Baso # (Auto) 0.02 (0-0.2) K/uL Immature Gran # (Auto) 0.09 H (0.00-0.02) K/uL PT 15.6 H (9.0-12.0) Seconds INR 1.5 H (0.9-1.1) APTT 38.8 H (21.0-31.0) Seconds PTT Ratio 1.4 ABG pH (7.35-7.45) ABG pCO2 (35-46) mmHg ABG pO2 (80-95) mmHg ABG HCO3 (19-24) mmol/L ABG O2 Saturation (90-95) % ABG Base Excess (-9-1.8) mEq/L Nehemias Test (Pos) Barometric Pressure mm/Hg Oxygen Given Sodium (136-145) mmol/L Potassium (3.5-5.1) mmol/L Chloride (98-107) mmol/L Carbon Dioxide (21-32) mmol/L Anion Gap (3-11) BUN (6-23) mg/dl Creatinine (0.6-1.4) mg/dl Est Cr Clr Drug Dosing Est GFR ( Amer) ml/min Est GFR (Non-Af Amer) ml/min BUN/Creatinine Ratio (10-20) Glucose (70-99(Fasting)) mg/dl Lactate 2.5 H* (0.4-2.0) mmol/L Calcium (8.5-10.1) mg/dl Magnesium (1.7-2.4) mg/dl Total Bilirubin (0.2-1.0) mg/dl AST (13-39) U/L ALT (7-52) U/L Alkaline Phosphatase (34-104) U/L Troponin I (0-0.04) ng/ml B-Natriuretic Peptide (0-100) pg/ml Total Protein (6.0-8.3) gm/dl Albumin (3.4-5.0) gm/dl Globulin (2.5-4.0) gm/dl Albumin/Globulin Ratio (0.9-2) Influ A Molecular Assay (Negative) Influ B Molecular Assay (Negative) SARS-CoV-2, RNA, NAAT (NEGATIVE) 12/28/21 12/28/21 12/28/21 Range/Units 10:43 10:51 10:51 WBC (4.8-10.8) K/uL RBC (4.7-6.1) M/uL Hgb (14.0-18.0) g/dL Hct (42-52) % MCV (80-100) fL MCH (25-34) pg MCHC (32-36) g/dL RDW Std Deviation (36.4-46.3) fL RDW Coeff of Yogi (11.5-14.5) % Plt Count (130-400) K/uL MPV (7.4-10.4) fL Immature Gran % (Auto) % Neut % (Auto) % Lymph % (Auto) % Dale % (Auto) % Eos % (Auto) % Baso % (Auto) % Neut # (Auto) (1.4-6.5) K/uL Lymph # (Auto) (1.2-3.4) K/uL Dale # (Auto) (0.11-0.59) K/uL Eos # (Auto) (0-0.5) K/uL Baso # (Auto) (0-0.2) K/uL Immature Gran # (Auto) (0.00-0.02) K/uL PT (9.0-12.0) Seconds INR (0.9-1.1) APTT (21.0-31.0) Seconds PTT Ratio ABG pH (7.35-7.45) ABG pCO2 (35-46) mmHg ABG pO2 (80-95) mmHg ABG HCO3 (19-24) mmol/L ABG O2 Saturation (90-95) % ABG Base Excess (-9-1.8) mEq/L Nehemias Test (Pos) Barometric Pressure mm/Hg Oxygen Given Sodium 133 L (136-145) mmol/L Potassium 4.3 (3.5-5.1) mmol/L Chloride 99 (98-107) mmol/L Carbon Dioxide 24 (21-32) mmol/L Anion Gap 10 (3-11) BUN 28 H (6-23) mg/dl Creatinine 1.52 H (0.6-1.4) mg/dl Est Cr Clr Drug Dosing Not Reportable Est GFR ( Amer) 51.9 ml/min Est GFR (Non-Af Amer) 44.8 ml/min BUN/Creatinine Ratio 18.4 (10-20) Glucose 118 H (70-99(Fasting)) mg/dl Lactate (0.4-2.0) mmol/L Calcium 9.5 (8.5-10.1) mg/dl Magnesium 1.5 L (1.7-2.4) mg/dl Total Bilirubin 1.1 H (0.2-1.0) mg/dl AST 35 (13-39) U/L ALT 57 H (7-52) U/L Alkaline Phosphatase 124 H (34-104) U/L Troponin I < 0.03 (0-0.04) ng/ml B-Natriuretic Peptide (0-100) pg/ml Total Protein 7.3 (6.0-8.3) gm/dl Albumin 3.8 (3.4-5.0) gm/dl Globulin 3.5 (2.5-4.0) gm/dl Albumin/Globulin Ratio 1.1 (0.9-2) Influ A Molecular Assay Negative (Negative) Influ B Molecular Assay Negative (Negative) SARS-CoV-2, RNA, NAAT NEGATIVE (NEGATIVE) 12/28/21 12/28/21 12/28/21 Range/Units 11:38 11:52 12:40 WBC (4.8-10.8) K/uL RBC (4.7-6.1) M/uL Hgb (14.0-18.0) g/dL Hct (42-52) % MCV (80-100) fL MCH (25-34) pg MCHC (32-36) g/dL RDW Std Deviation (36.4-46.3) fL RDW Coeff of Yogi (11.5-14.5) % Plt Count (130-400) K/uL MPV (7.4-10.4) fL Immature Gran % (Auto) % Neut % (Auto) % Lymph % (Auto) % Dale % (Auto) % Eos % (Auto) % Baso % (Auto) % Neut # (Auto) (1.4-6.5) K/uL Lymph # (Auto) (1.2-3.4) K/uL Dale # (Auto) (0.11-0.59) K/uL Eos # (Auto) (0-0.5) K/uL Baso # (Auto) (0-0.2) K/uL Immature Gran # (Auto) (0.00-0.02) K/uL PT (9.0-12.0) Seconds INR (0.9-1.1) APTT (21.0-31.0) Seconds PTT Ratio ABG pH 7.46 H (7.35-7.45) ABG pCO2 34 L (35-46) mmHg ABG pO2 92 (80-95) mmHg ABG HCO3 23 (19-24) mmol/L ABG O2 Saturation 97.4 H (90-95) % ABG Base Excess 0.2 (-9-1.8) mEq/L Nehemias Test Pos (Pos) Barometric Pressure 731.5 mm/Hg Oxygen Given 60% Sodium (136-145) mmol/L Potassium (3.5-5.1) mmol/L Chloride (98-107) mmol/L Carbon Dioxide (21-32) mmol/L Anion Gap (3-11) BUN (6-23) mg/dl Creatinine (0.6-1.4) mg/dl Est Cr Clr Drug Dosing Est GFR ( Amer) ml/min Est GFR (Non-Af Amer) ml/min BUN/Creatinine Ratio (10-20) Glucose (70-99(Fasting)) mg/dl Lactate 1.4 (0.4-2.0) mmol/L Calcium (8.5-10.1) mg/dl Magnesium (1.7-2.4) mg/dl Total Bilirubin (0.2-1.0) mg/dl AST (13-39) U/L ALT (7-52) U/L Alkaline Phosphatase (34-104) U/L Troponin I (0-0.04) ng/ml B-Natriuretic Peptide 173 H (0-100) pg/ml Total Protein (6.0-8.3) gm/dl Albumin (3.4-5.0) gm/dl Globulin (2.5-4.0) gm/dl Albumin/Globulin Ratio (0.9-2) Influ A Molecular Assay (Negative) Influ B Molecular Assay (Negative) SARS-CoV-2, RNA, NAAT (NEGATIVE) Administered Medications Albuterol (Albut/Ipratrop 3mg/0.5mg Neb 3 Ml Vial) 3 ml NEB Q4R AMBER; Protocol Stop: 01/27/22 14:59 Last Admin: 12/28/21 15:02 Dose: 3 ml Documented by: [id number] Discontinued Medications Albuterol (Albut/Ipratrop 3mg/0.5mg Neb 3 Ml Vial) 3 ml NEB NOW STA; Protocol Stop: 12/28/21 10:44 Last Admin: 12/28/21 11:06 Dose: 3 ml Documented by: [id number] Furosemide (Furosemide 40 Mg/4 Ml Vial) 60 mg IV ONE ONE Stop: 12/28/21 11:38 Last Admin: 12/28/21 12:14 Dose: 60 mg Documented by: [id number] Cefepime HCl (Maxipime) 2,000 mg in 20 mls @ 5 mls/min IV NOW STA; Protocol Stop: 12/28/21 10:46 Last Admin: 12/28/21 11:06 Dose: 5 mls/min Documented by: [id number] Magnesium Sulfate/Dextrose (Magnesium Sulfate / D5w) 1 gm in 100 mls @ 100 mls/hr IV NOW STA Stop: 12/28/21 12:30 Last Infusion: 12/28/21 13:53 Dose: 0 mls/hr Documented by: [id number] Admin: 12/28/21 12:14 Dose: 100 mls/hr Documented by: [id number] Magnesium Sulfate/Dextrose (Magnesium Sulfate / D5w) 1 gm in 100 mls @ 50 mls/hr IV Q2H STA Stop: 12/28/21 14:40 Last Admin: 12/28/21 14:43 Dose: 50 mls/hr Documented by: [id number] Methylprednisolone (Methylprednisolone 125 Mg/2 Ml Vial) 60 mg IV NOW STA Stop: 12/28/21 10:47 Last Admin: 12/28/21 11:00 Dose: 60 mg Documented by: [id number] Imaging Data Radiologist's Impression: Chest X-Ray 12/28/21 10:45 XR chest 1V portable CLINICAL HISTORY: SOB. COMPARISON STUDY: 09/21/2021 TECHNIQUE: 1 view of the chest FINDINGS: Single frontal view of the chest demonstrates the cardiomediastinal silhouette to be within normal limits. Patchy interstitial and alveolar opacities are present bilaterally. The findings are most characteristic of a viral type pneumonitis. Covid 19 pneumonia should be excluded. Permanent cardiac pacer is again seen. There is no evidence for pleural effusion. There is no evidence for vascular congestion. There is no acute osseous pathology. IMPRESSION: 1. Patchy interstitial and alveolar opacities bilaterally characteristic of a viral type pneumonitis and probable early Covid 19 pneumonia. ACT 112: Negative or not required by law. Electronically signed by: William Castaneda M.D. 12/28/2021 11:21 AM Discharge Plan Visit Data Chief Complaint: Respiratory Problems Stated Complaint: SOB, BRONCIOL ISSUES ED Provider: Be Olson Discharge Problem: Hypoxia, CHF (congestive heart failure), SOB (shortness of breath), Tachypnea Patient Disposition: Admitted As Inpatient Condition: Fair Discharge Instructions Interventions: ED Discharge Assessment Last Done: 12/28/21 13:05
[2021-12-28 11:03] LABS: Basophils # (auto) 0.02 K/uL (0-0.2); Basophils % (auto) 0.1 %; Eosinophils # (auto) 0.89 K/uL (0-0.5); Eosinophils % (auto) 5.2 %; Hematocrit (blood only) 41.2 % (42-52); Hemoglobin 13.4 g/dL (14.0-18.0); Immature Granulocytes # (auto) 0.09 K/uL (0.00-0.02); Immature Granulocytes % (auto) 0.5 %; Lymphocytes # (auto) 0.58 K/uL (1.2-3.4); Lymphocytes % (auto) 3.4 %; Mean Corpuscular Hemoglobin 31.3 pg (25-34); Mean Corpuscular Hgb Conc 32.5 g/dL (32-36); Mean Corpuscular Volume 96.3 fL (80-100); Mean Platelet Volume 10.8 fL (7.4-10.4); Monocytes # (auto) 1.31 K/uL (0.11-0.59); Monocytes % (auto) 7.7 %; Neutrophils # (auto) 14.12 K/uL (1.4-6.5); Neutrophils % (auto) 83.1 %; Platelet Count 242 K/uL (130-400); RDW Coefficient of Variation 15.7 % (11.5-14.5); Red Blood Count 4.28 M/uL (4.7-6.1); White Blood Count 17.01 K/uL (4.8-10.8)
[2021-12-28 11:22] LABS: Influenza A virus by PCR Negative (Negative); Influenza B virus by PCR Negative (Negative)
--- NOTE | 2021-12-28 11:23 | XRay Report ---
XR chest 1V portable CLINICAL HISTORY: SOB. COMPARISON STUDY: 09/21/2021 TECHNIQUE: 1 view of the chest FINDINGS: Single frontal view of the chest demonstrates the cardiomediastinal silhouette to be within normal li mits. Patchy interstitial and alveolar opacities are present bilaterally. The findings are most alton cteristic of a viral type pneumonitis. Covid 19 pneumonia should be excluded. Permanent cardiac pacer is again seen. There is no evidence for pleural effusion. There is no evidenc e for vascular congestion. There is no acute osseous pathology. IMPRESSION: 1. Patchy interstitial and alveolar opacities bilaterally characteristic of a viral type pneumonitis and probable early Covid 19 pneumonia. ACT 112: Negative or not required by law. Electronically signed by: William Castaneda M.D. 12/28/2021 11:21 AM
[2021-12-28 11:27] LABS: Troponin I < 0.03 ng/ml (0-0.04)
[2021-12-28 11:29] LABS: Alanine Aminotransferase 57 U/L (7-52); Albumin Globulin Ratio 1.1 (0.9-2); Albumin Level 3.8 gm/dl (3.4-5.0); Alkaline Phosphatase 124 U/L (34-104); Anion Gap 10 (3-11); Aspartate Aminotransferase 35 U/L (13-39); BUN Creatinine Ratio 18.4 (10-20); Bilirubin,Total 1.1 mg/dl (0.2-1.0); Blood Urea Nitrogen 28 mg/dl (6-23); Calcium 9.5 mg/dl (8.5-10.1); Carbon Dioxide 24 mmol/L (21-32); Chloride 99 mmol/L (98-107); Est GFR (African American) 51.9 ml/min; Est GFR (Non-African American) 44.8 ml/min; Globulin 3.5 gm/dl (2.5-4.0); Glucose 118 mg/dl (70-99(Fasting)); Magnesium 1.5 mg/dl (1.7-2.4); Potassium 4.3 mmol/L (3.5-5.1); Sodium 133 mmol/L (136-145); Total Protein 7.3 gm/dl (6.0-8.3)
[2021-12-28] MEDS ORDERED: MAGNESIUM SULFATE / D5W 1 GM/100 ML BAG IV STA ×2 (11:31→12:41)
[2021-12-28 11:37] LABS: INR 1.5 (0.9-1.1); Partial Thromboplastin Ratio 1.4; Partial Thromboplastin Time 38.8 Seconds (21.0-31.0); Prothrombin Time 15.6 Seconds (9.0-12.0)
[2021-12-28] MEDS ORDERED: FUROSEMIDE 40 MG/4 ML VIAL IV ONE (11:37)
[2021-12-28 12:07] LABS: Allen Test Pos (Pos); Base Excess ABG 0.2 mEq/L (-9-1.8); HCO3 ABG 23 mmol/L (19-24); Oxygen Saturation ABG 97.4 % (90-95); PCO2 ABG 34 mmHg (35-46); PO2 ABG 92 mmHg (80-95); pH ABG 7.46 (7.35-7.45)
--- NOTE | 2021-12-28 13:01 | History & Physical Report ---
Date of Service December 28, 2021 Assessment & Plan (1) Acute respiratory failure with hypoxia: Plan: Patient presents with acute respiratory failure with hypoxia. Initially my clinical suspicion was heart failure as he has a history of cardiomyopathy and the x-ray looks more convincing that this is pulmonary edema however his BNP is not significantly elevated. He had a negative flu and Covid in the ER but we will proceed with bio fire testing to see if other viral etiologies may be causing a pneumonitis to have the patient present with his profound hypoxia. He does have a significant smoking history and is scheduled for bronchoscopy with and the month subsequently this could be a fibrotic change to his lung from previous lung injury however he has never been formally diagnosed with COPD. Clinically he is wheezing and he will be given steroids and nebulized beta agonist and ipratropium He was rescued with BiPAP in the emergency department this will be stopped and he likely can be transitioned to supplemental oxygen Patient did have elevated lactic acid which was likely due to his hypoxia did not feel that this is consistent with any sepsis syndrome Patient continues on Lasix 40 mg a daycardiology consultationCHF order set Daily weights low-salt diet Patient be given duo nebs prednisone 40 and doxycycline (2) NICM (nonischemic cardiomyopathy): Plan: Patient is treated by Dr. Trejo for nonischemic cardiomyopathy he will be maintained on his Entresto, metoprolol and is given Lasix with having his spironolactone held. (3) CKD (chronic kidney disease) stage 3, GFR 30-59 ml/min: Plan: The patient's chronic kidney disease with diuresis watch for worsening (4) Paroxysmal atrial fibrillation: Plan: Patient is not atrial fibrillation at this time he does have a pacemaker is on metoprolol for rate control he is anticoagulated Xarelto. Xarelto will be continued. 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 Neil Hunt who presents with acute respiratory failure with hypoxia which required rescue with BiPAP. Reportedly the patient had a shan last 1 years time. He is an outpatient provider who gave him Augmentin and prednisone taper about 1 week prior but this did not help. He also reportedly is having a bronchoscopy done [facility] January 06 for pulmonary nodule [facility] The patient did smoke for quite some time is quit for many years he has audible wheezing on exam his chest x-ray looks consistent with volume overload pulmonary edema. He has an outpatient Entresto and does have a pacemaker in place In the emergency department he was given intravenous Lasix had his respiratory distress treated with BiPAP and was given cefepime although he does not have any infectious symptoms other than his dyspnea. He is negative for Covid and influenza. Initial troponins unremarkable We brought in our facility serial enzymes will be taken to be given intravenous diuretics supporting his breathing have a consultation with [facility] cardiology for reevaluation of his heart failure regime. Last echocardiogram was in 2020 will await their evaluation before ordering another echo on this gentleman. With regard to his likely undiagnosed COPD begin prednisone 40 duo nebs and doxycycline. Likely may benefit from standard inhaled medications at time of discharge Allergies Allergy/AdvReac Type Severity Reaction Status Date / Time diphtheria toxoid,fluid Allergy Severe CONVULSIONS--HORSE Verified 12/28/21 13:07 SERUM BASE tetanus toxoid, adsorbed Allergy Severe CONVULSIONS--HORSE Verified 12/28/21 13:07 SERUM BASE Home Medications Medication Instructions Recorded Confirmed Type atorvastatin 40 mg tablet 40 mg PO PM 10/29/19 09/21/21 History rivaroxaban 20 mg tablet (Xarelto) 20 mg PO HS 10/29/19 09/21/21 History sacubitril 49 mg-valsartan 51 mg 1 tab PO BID 10/29/19 09/21/21 History tablet (Entresto) cholecalciferol (vitamin D3) 25 2,000 unit PO QDL 11/20/19 09/21/21 History mcg (1,000 unit) capsule (Vitamin D3) cyanocobalamin (vitamin B-12) 1,000 mcg PO QDL 11/20/19 09/21/21 History 1,000 mcg tablet (Vitamin B-12) folic acid 1 mg tablet 1 mg PO QDL 06/08/20 09/21/21 History metoprolol succinate 50 mg 50 mg PO BID tab 01/04/21 09/21/21 History tablet,extended release 24 hr cetirizine 10 mg tablet (Zyrtec) 5 mg PO QAM 08/16/21 09/21/21 History albuterol sulfate 90 mcg/actuation 2 inh INHALATION Q4H PRN #8.5 g 09/21/21 Rx aerosol inhaler pantoprazole 20 mg tablet,delayed 20 mg PO DAILYBB 09/21/21 09/21/21 History release spironolactone 25 mg tablet 12.5 mg PO QAM 09/21/21 09/21/21 History furosemide 40 mg tablet 40 mg PO BID 12/28/21 12/28/21 History Past Med/Surg History Medical History (Updated 12/28/21 @ 13:11 by Ja Tejeda MD) Acute blood loss anemia Acute GI bleeding Atrial fibrillation dx 2016 - follows w/ Dr. Trejo Congestive heart failure Deep vein thrombosis RLE - 2016 dx while hospitalized w/ pneumonia Duodenal ulcer Hearing deficit [facility] Hematoma of left lower extremity Osteoarthritis Pneumonia Pulmonary embolism 2016 - dx while hospitalized w/ pneumonia - on xarelto Surgical History History of appendectomy History of cardiac catheterization 2015 - [place] - no stents History of cardioversion 11/08/2016 History of carpal tunnel release of both wrists History of cataract surgery History of colonoscopy History of esophagogastroduodenoscopy (EGD) History of evacuation of hematoma LLE History of shoulder surgery Left 2004 History of tonsillectomy Presence of combination internal cardiac defibrillator (ICD) and pacemaker placed 2016 - medtronic - last checked 1 year ago - follows w/ dr. yeh Family History Mother Diabetes Grandfather (Paternal) No problems noted. Father Lymphoma Grandfather (Maternal) Myocardial infarction Other No family history of adverse response to anesthesia Denies family history of Ovarian cancer Prostate cancer Heart disease Breast cancer Colorectal cancer Social History Smoking Status: Never smoker Tobacco Type: Cigarettes Age Quit Using Tobacco: 53; Cigarettes Per Day: 1 pack a day; Second Hand Exposure: No; Hx Alcohol Use: No Hx Substance Use: No Preferred Language: Romansh Communication Ability: Effective Visual Impairment: Limited Hearing Ability: Use of Hearing Aid Surveying Technician Required: No Beliefs That Will Affect Care: None marital status: Current Living Situation: Spouse current occupational status: retired 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 How many Children do You have: 0 Feels Safe at Home: Yes Childhood Exposure to Second-Hand Smoke: Yes (dad did ) caffeine: Yes (cup of coffee in morning ) Dental Care, Regularly: No Physical Activity Frequency: Does not Exercise Seatbelt Use: always Sunscreen Use: No (doesn't go out in sun ) Assistive Devices: Hearing Aid - Bilateral Review of Systems Review of Systems: Severe respiratory distress on presentation no headache, no visual changes no speech or swallowing issues no chest pain, pressure or palpitations Dyspnea at rest cough productive of clear mucus no abdominal pain, nausea or vomiting, diarrhea or constipation no dysuria, hematuria or frequency no focal joint pain or swelling no back pain, CVA tenderness or radicular pain no bruising, bleeding or rashes no focal signs of weakness or numbness or altered sensation no complaints of anxiety or depression.. Physical Exam Physical Exam: The patient appeared well nourished and normally developed. He appears comfortable on BiPAP at this time oxygen saturations are 100% we will attempt to de-escalate Vital signs as documented. Head exam is normocephalic atraumatic Neck is with 2 cm JVD, no thyromegaly, or carotid bruits. Lungs rales at the bases expiratory wheezes throughout all lung prater . Abdominal exam reveals normal bowel sounds, soft non tender, no masses Extremities are trace edema and both pedal pulses are present Neurologic exam is alert and oriented, no focal loss of strength or sensation Skin is without bruises or rashes Psychologically is without concerns for anxiety or depression.. Results & Data Results & Data ([facility]) Vital Signs (Past 12 Hours) Vital Signs Temp Pulse Pulse Resp BP BP Pulse Ox 12/28/21 12:00 103 H 22 99/61 L 100 12/28/21 11:06 33 H 94 12/28/21 10:45 92 12/28/21 10:34 90 12/28/21 10:30 97.9 F 92 H 30 H 126/69 77 L Diagnostic Findings Chest x-ray shows patchy interstitial and alveolar opacities bilaterally which look to be fluid overload as there appears to be some fluid in the median fissure on the right however a low BNP brings us in the question negative viral studies on presentation ECG Additional Comments: KG shows occasional paced beats but sinus mechanism is present on the majority of the EKG there is no acute ST or T wave changes Code Status & VTE Plan VTE Prophylaxis Plan VTE Prophylaxis will be ordered: Yes PG Care Time/CCT Total # of Minutes Spent Total Time Spent with Patient: Total time spent is greater than 50% in coordination of care (as documented) at patient's floor/unit and/or counseling patient: Coding Level of Care Code 31649 Initial Inpt Care Lvl 3 Diagnoses NICM (nonischemic cardiomyopathy) I42.8 CKD (chronic kidney disease) stage 3, GFR 30-59 ml/min N18.3 Paroxysmal atrial fibrillation I48.0 Chronic systolic heart failure I50.22 AAA (abdominal aortic aneurysm) I71.4 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
--- NOTE | 2021-12-28 13:32 | Electrocardiogram Report ---
Test Reason : Blood Pressure : / mmHG Vent. Rate : 105 BPM Atrial Rate : 101 BPM P-R Int : 156 ms QRS Dur : 088 ms QT Int : 318 ms P-R-T Axes : 045 -30 063 degrees QTc Int : 420 ms Poor data quality, interpretation may be adversely affected Sinus tachycardia with occasional Premature ventricular complexes atrial-paced complexes Left axis deviation Low voltage QRS Inferior infarct (cited on or before 20-NOV-2019) Possible Anterolateral infarct , age undetermined Abnormal ECG When compared with ECG of 21-SEP-2021 10:56, Borderline criteria for Anterior infarct are now Present Borderline criteria for Anterolateral infarct are now Present Confirmed by Papa Alicea ([id number]) on 12/28/2021 1:32:03 PM Referred By: Confirmed By:Papa Alicea
[2021-12-28] MEDS ORDERED: ONDANSETRON INJ 2 MG/ML 2 ML VIAL IV PRN (13:46)
[2021-12-28] MEDS ORDERED: ACETAMINOPHEN 325 MG TAB PO PRN (13:46)
[2021-12-28] MEDS ORDERED: POLYETHYLENE (MIRALAX) 17 GM PACK PO PRN (13:46)
--- NOTE | 2021-12-28 14:48 | Cardiology Consultation ---
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 He has recently been identified to have progressively worsening interstitial lung disease by chest x- ray and CAT scan and has preliminary plans for diagnostic bronchoscopy with EBUS on 01/06/2022. In the interim patient's had difficulties with worsening dyspnea culminating in 2 days of inability to sleep outside of a recliner with cough and shortness of breath. Presents now with hypoxic respiratory failure Chest x-ray demonstrates diffuse interstitial pattern possible component of decompensated systolic heart failure superimposed on chronic interstitial lung disease. Patient has improved clinically by my exam with IV diuretics as well as bronchial nebulizer Plan: Echocardiogram will be repeated now greater than 1 year since last examination. Agree with cautious diuresis though exam does not support significant volume overload and BNP not significantly elevated. Will ask pulmonology's opinion on treatment of underlying progressive interstitial lung disease. Continue patient's prehospital therapies including metoprolol succinate, Entresto and spironolactone, anticoagulation with Xarelto We will follow patient History of Present Illness Reason for Consultation: Hypoxic respiratory failure Requesting Physician: Dr. Delgadillo Attending Physician: Suman Fowler History of Present Illness Patient is a 71-year-old male whose ongoing issues include 1. Nonischemic cardiomyopathy with moderate left ventricular dysfunction (improved) 2. Prophylactic pacer defibrillator insertion 11/08/2016, [employer] Evera MRI XT DCR 3. Cardiac catheterization 08/05/2016, moderate nonobstructive coronary atherosclerosis 4. Progressive interstitial lung disease 5. Prior extensive bilateral pulmonary emboli August 2016 on chronic anticoagulation 6. CKD stage III 7. Cardiac arrhythmias with paroxysmal atrial fibrillation flutter status post synchronized cardioversion 03/23/2017 without recurrence, nonsustained ventricular tachycardia on pacer interrogation Patient presents now with complex history as outlined above. He has had progressive difficulties with dyspnea over several months duration. He was recently treated as an outpatient for exacerbation of underlying pulmonary disease with antibiotics and prednisone taper. He has completed both these courses but presents now noting worsening dyspnea orthopnea and increasing cough x2 days duration He contacted PCP and associate store leader who recommended ER evaluation. Patient acutely hypoxic on presentation He denies chest pains, tachypalpitations, syncope or near syncope. Notes has been sleeping in a recliner the last 2 nights due to dyspnea and clear sputum production. No acute weight gain has been taking medications as prescribed no edema. No changes in medications other than as noted no specific fevers or chills no bleeding difficulties. Patient took his medications today Patient prior smoker but none in greater than 15 years. Worked in [employer] Allergies Allergy/AdvReac Type Severity Reaction Status Date / Time diphtheria toxoid,fluid Allergy Severe CONVULSIONS--HORSE Verified 12/28/21 13:07 SERUM BASE tetanus toxoid, adsorbed Allergy Severe CONVULSIONS--HORSE Verified 12/28/21 13:07 SERUM BASE Home Medications Medication Instructions Recorded Confirmed Type atorvastatin 40 mg tablet 40 mg PO HS 10/29/19 12/28/21 History rivaroxaban 20 mg tablet (Xarelto) 20 mg PO HS 10/29/19 12/28/21 History sacubitril 49 mg-valsartan 51 mg 1 tab PO BID 10/29/19 12/28/21 History tablet (Entresto) cholecalciferol (vitamin D3) 25 2,000 unit PO QDL 11/20/19 12/28/21 History mcg (1,000 unit) capsule (Vitamin D3) cyanocobalamin (vitamin B-12) 1,000 mcg PO QDL 11/20/19 12/28/21 History 1,000 mcg tablet (Vitamin B-12) folic acid 1 mg tablet 1 mg PO QDL 06/08/20 12/28/21 History metoprolol succinate 50 mg 50 mg PO BID tab 01/04/21 12/28/21 History tablet,extended release 24 hr cetirizine 10 mg tablet (Zyrtec) 5 mg PO QAM 08/16/21 12/28/21 History albuterol sulfate 90 mcg/actuation 2 inh INHALATION Q4H PRN #8.5 g 09/21/21 12/28/21 Rx aerosol inhaler pantoprazole 20 mg tablet,delayed 20 mg PO DAILYBB 09/21/21 12/28/21 History release spironolactone 25 mg tablet 12.5 mg PO QAM 09/21/21 12/28/21 History furosemide 40 mg tablet 40 mg PO BID 12/28/21 12/28/21 History Patient History Medical History (Updated 12/28/21 @ 16:07 by Be Olson MD) Acute blood loss anemia Acute GI bleeding Atrial fibrillation dx 2016 - follows w/ Dr. Trejo Congestive heart failure Deep vein thrombosis RLE - 2016 dx while hospitalized w/ pneumonia Duodenal ulcer Hearing deficit BL [facility]SHALL Hematoma of left lower extremity Osteoarthritis Pneumonia Pulmonary embolism 2016 - dx while hospitalized w/ pneumonia - on xarelto Surgical History History of appendectomy History of cardiac catheterization 2016 - [place] - no stents History of cardioversion 11/08/2016 History of carpal tunnel release of both wrists History of cataract surgery History of colonoscopy History of esophagogastroduodenoscopy (EGD) History of evacuation of hematoma LLE History of shoulder surgery Left 2004 History of tonsillectomy Presence of combination internal cardiac defibrillator (ICD) and pacemaker placed 2016 - [employer] - last checked 1 year ago - follows w/ dr. yeh Family History Mother Diabetes Grandfather (Paternal) No problems noted. Father Lymphoma Grandfather (Maternal) Myocardial infarction Other No family history of adverse response to anesthesia Denies family history of Ovarian cancer Prostate cancer Heart disease Breast cancer Colorectal cancer Social History Smoking Status: Former smoker Tobacco Type: Cigarettes Age Quit Using Tobacco: 53; Cigarettes Per Day: 1 pack a day; Second Hand Exposure: No; Hx Alcohol Use: No Hx Substance Use: No Preferred Language: Nepali Communication Ability: Effective Visual Impairment: Limited Hearing Ability: Use of Hearing Aid Handle Bender Required: No Beliefs That Will Affect Care: None marital status: Current Living Situation: Spouse current occupational status: retired 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 How many Children do You have: 0 Feels Safe at Home: Yes Childhood Exposure to Second-Hand Smoke: Yes (dad did ) caffeine: Yes (cup of coffee in morning ) Dental Care, Regularly: No Physical Activity Frequency: Does not Exercise Seatbelt Use: always Sunscreen Use: No (doesn't go out in sun ) Assistive Devices: Glasses, Hearing Aid - Left and Hearing Aid - Right Review of Systems Review of Systems: All systems reviewed & are unremarkable except as noted in HPI & below Physical Exam Constitutional: well developed and well nourished Mildly dyspneic at rest Eyes: PERRL, conjunctivae normal, anicteric sclerae ENMT: external ear and nose normal, oropharynx normal Neck: trachea midline, no thyromegaly Respiratory: Coarse crackles throughout all lung prater Cardiovascular: Rate/Rhythm: regular rate and regular rhythm Vessels: no JVD Extremities: no edema Chest (Breasts): Chest: normal inspection of chest Gastrointestinal (Abdomen): Percussion/Palpation: abdomen soft; abdomen nontender, no guarding and no hepatosplenomegaly Musculoskeletal: no cyanosis or clubbing, extremities motor strength 5/5 Psychiatric: A+Ox3, euthymic affect Results & Data ([facility]) Vital Signs (Past 12 Hours) Vital Signs Temp Pulse Pulse Resp BP BP Pulse Ox 12/28/21 14:01 36.9 C 90 33 H 117/65 96 12/28/21 13:03 94 12/28/21 12:21 94 H 31 H 99/61 L 100 12/28/21 12:00 103 H 22 99/61 L 100 12/28/21 11:06 33 H 94 12/28/21 10:45 92 12/28/21 10:34 90 12/28/21 10:30 36.6 C 92 H 30 H 126/69 77 L Laboratory Results Laboratory Results - last 24 hr 12/28/21 12/28/21 12/28/21 10:43 10:43 10:43 WBC 17.01 H RBC 4.28 L Hgb 13.4 L Hct 41.2 L MCV 96.3 MCH 31.3 MCHC 32.5 RDW Std Deviation 55.0 H RDW Coeff of Yogi 15.7 H Plt Count 242 MPV 10.8 H Immature Gran % (Auto) 0.5 Neut % (Auto) 83.1 Lymph % (Auto) 3.4 Gove % (Auto) 7.7 Eos % (Auto) 5.2 Baso % (Auto) 0.1 Neut # (Auto) 14.12 H Lymph # (Auto) 0.58 L Gove # (Auto) 1.31 H Eos # (Auto) 0.89 H Baso # (Auto) 0.02 Immature Gran # (Auto) 0.09 H PT 15.6 H INR 1.5 H APTT 38.8 H PTT Ratio 1.4 ABG pH ABG pCO2 ABG pO2 ABG HCO3 ABG O2 Saturation ABG Base Excess Nehemias Test Barometric Pressure Oxygen Given Sodium Potassium Chloride Carbon Dioxide Anion Gap BUN Creatinine Est Cr Clr Drug Dosing Est GFR ( Amer) Est GFR (Non-Af Amer) BUN/Creatinine Ratio Glucose Lactate 2.5 H* Calcium Magnesium Total Bilirubin AST ALT Alkaline Phosphatase Troponin I B-Natriuretic Peptide Total Protein Albumin Globulin Albumin/Globulin Ratio Adenovirus (PCR) B. pertussis DNA (PCR) B.parapertussis DNA PCR C. pneumoniae DNA (PCR) Coronavirus OC43 (PCR) Coronavirus HKU1 (PCR) Coronavirus 229E (PCR) SARS-CoV-2 (PCR) Coronavirus NL63 (PCR) Human Metapneumovir PCR Influ A Molecular Assay Influenza Type B (PCR) Influ B Molecular Assay M. pneumoniae (PCR) Parainfluenza 1 (PCR) Parainfluenza 2 (PCR) Parainfluenza 3 (PCR) Parainfluenza 4 (PCR) RSV (PCR) Entero/Rhino (PCR) SARS-CoV-2, RNA, NAAT 12/28/21 12/28/21 12/28/21 10:43 10:51 10:51 WBC RBC Hgb Hct MCV MCH MCHC RDW Std Deviation RDW Coeff of Yogi Plt Count MPV Immature Gran % (Auto) Neut % (Auto) Lymph % (Auto) Gove % (Auto) Eos % (Auto) Baso % (Auto) Neut # (Auto) Lymph # (Auto) Gove # (Auto) Eos # (Auto) Baso # (Auto) Immature Gran # (Auto) PT INR APTT PTT Ratio ABG pH ABG pCO2 ABG pO2 ABG HCO3 ABG O2 Saturation ABG Base Excess Nehemias Test Barometric Pressure Oxygen Given Sodium 133 L Potassium 4.3 Chloride 99 Carbon Dioxide 24 Anion Gap 10 BUN 28 H Creatinine 1.52 H Est Cr Clr Drug Dosing Not Reportable Est GFR ( Amer) 51.9 Est GFR (Non-Af Amer) 44.8 BUN/Creatinine Ratio 18.4 Glucose 118 H Lactate Calcium 9.5 Magnesium 1.5 L Total Bilirubin 1.1 H AST 35 ALT 57 H Alkaline Phosphatase 124 H Troponin I < 0.03 B-Natriuretic Peptide Total Protein 7.3 Albumin 3.8 Globulin 3.5 Albumin/Globulin Ratio 1.1 Adenovirus (PCR) B. pertussis DNA (PCR) B.parapertussis DNA PCR C. pneumoniae DNA (PCR) Coronavirus OC43 (PCR) Coronavirus HKU1 (PCR) Coronavirus 229E (PCR) SARS-CoV-2 (PCR) Coronavirus NL63 (PCR) Human Metapneumovir PCR Influ A Molecular Assay Negative Influenza Type B (PCR) Influ B Molecular Assay Negative M. pneumoniae (PCR) Parainfluenza 1 (PCR) Parainfluenza 2 (PCR) Parainfluenza 3 (PCR) Parainfluenza 4 (PCR) RSV (PCR) Entero/Rhino (PCR) SARS-CoV-2, RNA, NAAT NEGATIVE 12/28/21 12/28/21 12/28/21 11:38 11:52 12:40 WBC RBC Hgb Hct MCV MCH MCHC RDW Std Deviation RDW Coeff of Yogi Plt Count MPV Immature Gran % (Auto) Neut % (Auto) Lymph % (Auto) Gove % (Auto) Eos % (Auto) Baso % (Auto) Neut # (Auto) Lymph # (Auto) Gove # (Auto) Eos # (Auto) Baso # (Auto) Immature Gran # (Auto) PT INR APTT PTT Ratio ABG pH 7.46 H ABG pCO2 34 L ABG pO2 92 ABG HCO3 23 ABG O2 Saturation 97.4 H ABG Base Excess 0.2 Nehemias Test Pos Barometric Pressure 731.5 Oxygen Given 60% Sodium Potassium Chloride Carbon Dioxide Anion Gap BUN Creatinine Est Cr Clr Drug Dosing Est GFR ( Amer) Est GFR (Non-Af Amer) BUN/Creatinine Ratio Glucose Lactate 1.4 Calcium Magnesium Total Bilirubin AST ALT Alkaline Phosphatase Troponin I B-Natriuretic Peptide 173 H Total Protein Albumin Globulin Albumin/Globulin Ratio Adenovirus (PCR) B. pertussis DNA (PCR) B.parapertussis DNA PCR C. pneumoniae DNA (PCR) Coronavirus OC43 (PCR) Coronavirus HKU1 (PCR) Coronavirus 229E (PCR) SARS-CoV-2 (PCR) Coronavirus NL63 (PCR) Human Metapneumovir PCR Influ A Molecular Assay Influenza Type B (PCR) Influ B Molecular Assay M. pneumoniae (PCR) Parainfluenza 1 (PCR) Parainfluenza 2 (PCR) Parainfluenza 3 (PCR) Parainfluenza 4 (PCR) RSV (PCR) Entero/Rhino (PCR) SARS-CoV-2, RNA, NAAT 12/28/21 12/28/21 13:51 14:00 WBC RBC Hgb Hct MCV MCH MCHC RDW Std Deviation RDW Coeff of Yogi Plt Count MPV Immature Gran % (Auto) Neut % (Auto) Lymph % (Auto) Gove % (Auto) Eos % (Auto) Baso % (Auto) Neut # (Auto) Lymph # (Auto) Gove # (Auto) Eos # (Auto) Baso # (Auto) Immature Gran # (Auto) PT INR APTT PTT Ratio ABG pH ABG pCO2 ABG pO2 ABG HCO3 ABG O2 Saturation ABG Base Excess Nehemias Test Barometric Pressure Oxygen Given Sodium Potassium Chloride Carbon Dioxide Anion Gap BUN Creatinine Est Cr Clr Drug Dosing Est GFR ( Amer) Est GFR (Non-Af Amer) BUN/Creatinine Ratio Glucose Lactate Calcium Magnesium Total Bilirubin AST ALT Alkaline Phosphatase Troponin I 0.03 B-Natriuretic Peptide Total Protein Albumin Globulin Albumin/Globulin Ratio Adenovirus (PCR) Pending B. pertussis DNA (PCR) Pending B.parapertussis DNA PCR Pending C. pneumoniae DNA (PCR) Pending Coronavirus OC43 (PCR) Pending Coronavirus HKU1 (PCR) Pending Coronavirus 229E (PCR) Pending SARS-CoV-2 (PCR) Pending Coronavirus NL63 (PCR) Pending Human Metapneumovir PCR Pending Influ A Molecular Assay Influenza Type B (PCR) Pending Influ B Molecular Assay M. pneumoniae (PCR) Pending Parainfluenza 1 (PCR) Pending Parainfluenza 2 (PCR) Pending Parainfluenza 3 (PCR) Pending Parainfluenza 4 (PCR) Pending RSV (PCR) Pending Entero/Rhino (PCR) Pending SARS-CoV-2, RNA, NAAT Diagnostic Findings CT chest 12/13/2021 without contrast IMPRESSION 1. Basilar fibrotic interstitial lung disease "Indeterminate for UIP." Primary diagnosis is fibrotic NSIP. No air trapping or honeycomb. Extent of disease is severely progressed from 09/2016. 2. Worsened multi station bulky lymphadenopathy, partly calcified at the right hilum. Differential considerations include granulomatous etiologies (old fungal infection or sarcoid) or a lymphoproliferative process. Recommend either surveillance imaging in 12 months or correlation with bronchoscopy. 3. Scattered hepatic and splenic calcifications due to prior granulomatous in flammation (old fungal infection or sarcoid). Pacemaker defibrillator interrogation 12/01/2021: Normal device function with 96% atrial pacing, minimal RV pacing rare episodes of brief nonsustained ventricular tachycardia
[2021-12-28] MEDS: ALBUT/IPRATROP 3MG/0.5MG NEB 3 ML VIAL NEB SCH ×3 (15:02→22:58)
[2021-12-28 15:36] LABS: Adenovirus PCR Not Detected (NotDetected); Bordetella parapertussis PCR Not Detected (NotDetected); Bordetella pertussis PCR Not Detected (NotDetected); Chlamydia pneumoniae PCR Not Detected (NotDetected); Coronavirus 229E PCR Not Detected (NotDetected); Coronavirus CoV-2 (COVID19)PCR Not Detected (NotDetected); Coronavirus HKU1 PCR Not Detected (NotDetected); Coronavirus NL63 PCR Not Detected (NotDetected); Coronavirus OC43PCR Not Detected (NotDetected); Human Metapneumovirus PCR Not Detected (NotDetected); Influenza A PCR Not Detected (NotDetected); Influenza B PCR Not Detected (NotDetected); Mycoplasma pneumoniae PCR Not Detected (NotDetected); Parainfluenza Virus 1 PCR Not Detected (NotDetected); Parainfluenza Virus 2 PCR Not Detected (NotDetected); Parainfluenza Virus 3 PCR Not Detected (NotDetected); Parainfluenza Virus 4 PCR Not Detected (NotDetected); Respiratory Syncytial VirusPCR Not Detected (NotDetected); Rhinovirus/Enterovirus PCR Not Detected (NotDetected)
--- NOTE | 2021-12-28 18:59 | Pulmonary Consultation ---
Date of Consultation December 28, 2021 Assessment & Plan (1) Hypoxia: (2) CHF (congestive heart failure): Heart failure chronicity: acute on chronic Heart failure type: unspecified Qualified Code(s): I50.9 - Heart failure, unspecified (3) SOB (shortness of breath): (4) Interstitial lung disease: 71-year-old male with a history of pulmonary embolism on anticoagulation, nonischemic cardiomyopathy, AAA, atrial fibrillation and CKD stage III who presented to the hospital due to acute hypoxemic respiratory failure thought to be combination of CHF and ILD flare. Patient has already improved substantially since his initial presentation to the hospital. He likely has a combination of superimposed CHF over top of possible ILD flare. Agree with doxycycline and IV diuresis. Prednisone has already empirically been started by the hospitalist service. Can continue with prednisone for the next 7 days. Will defer bronchoscopy to his outpatient combination technician. Differential for ILD includes, but is not limited to fibrotic HP, fibrotic NSIP and atypical NSIP. Antifibrotic therapy can be considered as an outpatient, but may prove difficult given his anticoagulation and chronic heart failure. Will defer mixed connective tissue disorder work-up to his outpatient combination technician. Thank you for the consult. We will continue to follow with you. History of Present Illness Reason for Consultation: Possible ILD flare Attending Physician: Suman Fowler History of Present Illness 71-year-old male with a history of systolic congestive heart failure, hypertension, prior pulmonary emboli, coronary artery disease and tobacco abuse who presents to the hospital due to increasing shortness of breath. On admission to the hospital today he was found to be in significant respiratory failure requiring BiPAP. He is now down to 2 L of oxygen. He received IV diuretic therapy. He is followed by pulmonology in [facility] and there is a plan for bronchoscopy with EBUS on January 06. He has a [id number] smoking history. He relates a dry cough. He denies any fevers or chills. I was able to review his CT chest from the outside facility on 12/13/2021. There is evidence of traction bronchiectasis in the basilar regions, greater on the right. Subpleural reticular findings noted diffusely through the lungs. Faint groundglass opacities noted as well. Patient reports exposure history to farm animals and metal fumes. Allergies Allergy/AdvReac Type Severity Reaction Status Date / Time diphtheria toxoid,fluid Allergy Severe CONVULSIONS--HORSE Verified 12/28/21 13:07 SERUM BASE tetanus toxoid, adsorbed Allergy Severe CONVULSIONS--HORSE Verified 12/28/21 13:07 SERUM BASE Home Medications Medication Instructions Recorded Confirmed Type atorvastatin 40 mg tablet 40 mg PO HS 10/29/19 12/28/21 History rivaroxaban 20 mg tablet (Xarelto) 20 mg PO HS 10/29/19 12/28/21 History sacubitril 49 mg-valsartan 51 mg 1 tab PO BID 10/29/19 12/28/21 History tablet (Entresto) cholecalciferol (vitamin D3) 25 2,000 unit PO QDL 11/20/19 12/28/21 History mcg (1,000 unit) capsule (Vitamin D3) cyanocobalamin (vitamin B-12) 1,000 mcg PO QDL 11/20/19 12/28/21 History 1,000 mcg tablet (Vitamin B-12) folic acid 1 mg tablet 1 mg PO QDL 06/08/20 12/28/21 History metoprolol succinate 50 mg 50 mg PO BID tab 01/04/21 12/28/21 History tablet,extended release 24 hr cetirizine 10 mg tablet (Zyrtec) 5 mg PO QAM 08/16/21 12/28/21 History albuterol sulfate 90 mcg/actuation 2 inh INHALATION Q4H PRN #8.5 g 09/21/21 12/28/21 Rx aerosol inhaler pantoprazole 20 mg tablet,delayed 20 mg PO DAILYBB 09/21/21 12/28/21 History release spironolactone 25 mg tablet 12.5 mg PO QAM 09/21/21 12/28/21 History furosemide 40 mg tablet 40 mg PO BID 12/28/21 12/28/21 History Patient History Medical History (Updated 12/28/21 @ 19:02 by Abhijeet Dawkins MD) Acute blood loss anemia Acute GI bleeding Atrial fibrillation dx 2016 - follows w/ Dr. Trejo Congestive heart failure Deep vein thrombosis RLE - 2016 dx while hospitalized w/ pneumonia Duodenal ulcer Hearing deficit BL MARSHALL Hematoma of left lower extremity Interstitial lung disease Osteoarthritis Pneumonia Pulmonary embolism 2015 - dx while hospitalized w/ pneumonia - on xarelto Surgical History History of appendectomy History of cardiac catheterization 2016 - [place] - no stents History of cardioversion 11/08/2016 History of carpal tunnel release of both wrists History of cataract surgery History of colonoscopy History of esophagogastroduodenoscopy (EGD) History of evacuation of hematoma LLE History of shoulder surgery Left 2005 History of tonsillectomy Presence of combination internal cardiac defibrillator (ICD) and pacemaker placed 2017 - [employer] - last checked 1 year ago - follows w/ dr. yeh Family History Mother Diabetes Grandfather (Paternal) No problems noted. Father Lymphoma Grandfather (Maternal) Myocardial infarction Other No family history of adverse response to anesthesia Denies family history of Ovarian cancer Prostate cancer Heart disease Breast cancer Colorectal cancer Social History Smoking Status: Former smoker Tobacco Type: Cigarettes Age Quit Using Tobacco: 53; Cigarettes Per Day: 1 pack a day; Second Hand Exposure: No; Hx Alcohol Use: No Hx Substance Use: No Preferred Language: Italian Communication Ability: Effective Visual Impairment: Limited Hearing Ability: Use of Hearing Aid Telecommunications Cable Jointer Required: No Beliefs That Will Affect Care: None marital status: Current Living Situation: Spouse current occupational status: retired 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 Patient is in no apparent distress. Patient is well-developed. Eyes: Pupils are equal round and reactive to light. Conjunctivae are normal. Anicteric sclera. Ears nose, mouth and throat: Mallampati class []. Normal posterior oropharynx. Uvula is midline. Neck: Trachea is midline. Visual inspection is normal. Respiratory: Fine Velcro crackles noted in the bilateral lower lobes. Cardiovascular: Regular rate and rhythm. No murmurs. No edema. Gastrointestinal: Normal bowel sounds, soft, nontender and nondistended. No hepatosplenomegaly noted. Musculoskeletal: No cyanosis. Patient is able to move all extremities. Strength is 5 out of 5 in the upper and lower extremities. Skin: No rashes, warm dry and intact. Neurologic: No obvious focal neurological deficits seen. Psychiatric: Alert and oriented x3 with a euthymic affect. Results & Data Results & Data ([facility]) Vital Signs (Past 12 Hours) Vital Signs Temp Pulse Pulse Resp BP BP Pulse Ox 12/28/21 17:00 89 26 H 90/62 L 94 12/28/21 16:24 36.7 C 12/28/21 16:00 86 98/61 L 93 12/28/21 15:06 90 19 91 12/28/21 15:00 87 116/90 92 12/28/21 14:01 36.9 C 90 33 H 117/65 96 12/28/21 14:00 96 H 36 H 117/65 95 12/28/21 13:03 94 12/28/21 12:21 94 H 31 H 99/61 L 100 12/28/21 12:00 103 H 22 99/61 L 100 12/28/21 11:06 33 H 94 12/28/21 10:45 92 12/28/21 10:34 90 12/28/21 10:30 36.6 C 92 H 30 H 126/69 77 L PG Care Time/CCT Total # of Minutes Spent Total Time Spent with Patient: Total time spent is greater than 50% in coordination of care (as documented) at patient's floor/unit and/or counseling patient: Coding Level of Care Code 94742 Initial Inpt Care Lvl 3 Diagnoses Hypoxia R09.02 CHF (congestive heart failure) I50.9 Heart failure chronicity: acute on chronic Heart failure type: unspecified SOB (shortness of breath) R06.02 Interstitial lung disease J84.9
[2021-12-28] MEDS: RIVAROXABAN 20 MG TAB PO SCH (20:35)
[2021-12-28] MEDS: DOXYCYCLINE HYCLATE 100 MG CAP PO SCH (20:35)
[2021-12-28] MEDS: VALSARTAN/SACUBITRIL 51/49 MG TAB PO SCH (20:35)
[2021-12-28] MEDS: ATORVASTATIN 40 MG TAB PO SCH (20:36)
[2021-12-28] MEDS: METOPROLOL SUCC 50MG EXT REL TAB PO SCH (21:00)
[2021-12-29] MEDS: ALBUT/IPRATROP 3MG/0.5MG NEB 3 ML VIAL NEB SCH ×6 (04:01→23:10)
[2021-12-29] MEDS: PANTOprazole 40 MG TAB PO SCH (06:01)
[2021-12-29] MEDS ORDERED: PANTOprazole 40 MG TAB PO SCH (06:30)
[2021-12-29 06:45] LABS: Hematocrit (blood only) 34.9 % (42-52); Mean Corpuscular Hemoglobin 30.1 pg (25-34); Mean Corpuscular Hgb Conc 31.5 g/dL (32-36); Mean Corpuscular Volume 95.6 fL (80-100); Mean Platelet Volume 10.8 fL (7.4-10.4); Nucleated RBC # (auto) 0.08 K/uL (0-0); Nucleated RBC % (auto) 0.7 %; Platelet Count 208 K/uL (130-400); RDW Coefficient of Variation 15.8 % (11.5-14.5); RDW Standard Deviation 55.3 fL (36.4-46.3); Red Blood Count 3.65 M/uL (4.7-6.1); White Blood Count 11.68 K/uL (4.8-10.8)
[2021-12-29 06:54] LABS: Albumin Level 3.5 gm/dl (3.4-5.0); BUN Creatinine Ratio 19.6 (10-20); Bilirubin,Total 0.5 mg/dl (0.2-1.0); Calcium 8.3 mg/dl (8.5-10.1); Creatinine Clr Calc Pharmacy 36.1 ml/min; Est GFR (African American) 32.3 ml/min; Est GFR (Non-African American) 27.9 ml/min; Magnesium 2.3 mg/dl (1.7-2.4); Potassium 4.2 mmol/L (3.5-5.1); Total Protein 6.8 gm/dl (6.0-8.3)
[2021-12-29] MEDS ORDERED: PERFLUTREN LIPID MICROSPHERE (DEFINITY) IV ONE (07:00)
[2021-12-29] MEDS: predniSONE 20 MG TAB PO SCH (08:44)
[2021-12-29] MEDS: VALSARTAN/SACUBITRIL 51/49 MG TAB PO SCH (08:44)
[2021-12-29] MEDS: CETIRIZINE HCL 10 MG TABLET PO SCH (08:44)
[2021-12-29] MEDS: DOXYCYCLINE HYCLATE 100 MG CAP PO SCH ×2 (08:44→20:26)
[2021-12-29] MEDS: MULTIVITAMIN CHEWABLE TAB PO SCH (08:44)
[2021-12-29] MEDS: METOPROLOL SUCC 50MG EXT REL TAB PO SCH ×2 (08:44→20:25)
[2021-12-29] MEDS ORDERED: FUROSEMIDE 40 MG/4 ML VIAL IV SCH (09:00)
--- NOTE | 2021-12-29 09:55 | Pulmonology Progress Note ---
Date of Service December 29, 2021 Assessment & Plan (1) Hypoxia: (2) CHF (congestive heart failure): Heart failure chronicity: acute on chronic Heart failure type: unspecified Qualified Code(s): I50.9 - Heart failure, unspecified (3) SOB (shortness of breath): (4) Interstitial lung disease: Plan: 71-year-old male with a history of pulmonary embolism on anticoagulation, nonischemic cardiomyopathy, AAA, atrial fibrillation and CKD stage III who presented to the hospital due to acute hypoxemic respiratory failure thought to be combination of CHF and ILD flare. Patient has already improved substantially since his initial presentation to the hospital. He likely has a combination of superimposed CHF over top of possible ILD flare. Agree with doxycycline and IV diuresis. Prednisone has already empirically been started by the hospitalist service. Can continue with prednisone for the next 7 days. Will defer bronchoscopy to his outpatient management trainee marketing. Differential for ILD includes, but is not limited to fibrotic HP, fibrotic NSIP and atypical NSIP. Antifibrotic therapy can be considered as an outpatient, but may prove difficult given his anticoagulation and chronic heart failure. Will defer mixed connective tissue disorder work-up to his outpatient management trainee marketing. Recommend to stop oxygen qualification study prior to discharge. Pulmonary will sign off at this time. Please call with questions. Admission and Anticipated Discharge Date Admission Date: December 28, 2021 Subjective Patient seen and examined today. Continues to have a dry cough. Denies any shortness of breath at rest. Saturating in the mid 90s on room air. Review of Systems Review of Systems: All systems reviewed & are unremarkable except as noted in HPI & below Physical Exam Physical Exam: Constitutional: Patient appears to be of their stated age. Patient is in no apparent distress. Patient is well-developed. Eyes: Pupils are equal round and reactive to light. Conjunctivae are normal. Anicteric sclera. Ears nose, mouth and throat: No facial deformity seen Neck: Trachea is midline. Visual inspection is normal. Respiratory: Fine Velcro crackles noted in the bilateral lower lobes. Cardiovascular: Regular rate and rhythm. No murmurs. No edema. Gastrointestinal: Normal bowel sounds, soft, nontender and nondistended. No hepatosplenomegaly noted. Musculoskeletal: No cyanosis. Patient is able to move all extremities. Strength is 5 out of 5 in the upper and lower extremities. Skin: No rashes, warm dry and intact. Neurologic: No obvious focal neurological deficits seen. Psychiatric: Alert and oriented x3 with a euthymic affect. Results & Data Results & Data ([facility]) Vital Signs (Past 12 Hours) Vital Signs Temp Pulse Pulse Resp BP BP Pulse Ox 12/29/21 08:09 36.7 C 92 H 18 108/60 98 12/29/21 07:10 90 18 95 12/29/21 03:20 36.4 C L 89 18 113/65 97 12/28/21 23:25 89 23 101/63 93 12/28/21 23:21 36.5 C 89 20 101/63 98 12/28/21 23:00 95 H 13 99 12/28/21 22:58 87 15 96 12/28/21 22:00 90 28 H 94 PG Care Time/CCT Total # of Minutes Spent Total Time Spent with Patient: Total time spent is greater than 50% in coordination of care (as documented) at patient's floor/unit and/or counseling patient: Coding Level of Care Code 24691 Subseq Hosp Care Lvl 2 Diagnoses Hypoxia R09.02 CHF (congestive heart failure) I50.9 Heart failure chronicity: acute on chronic Heart failure type: unspecified SOB (shortness of breath) R06.02 Interstitial lung disease J84.9
--- NOTE | 2021-12-29 12:20 | Cardiology Progress Note ---
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 He has recently been identified to have progressively worsening interstitial lung disease by chest x-ray and CAT scan and has preliminary plans for diagnostic bronchoscopy with EBUS on 01/06/2022. In the interim patient's had difficulties with worsening dyspnea culminating in 2 days of inability to sleep outside of a recliner with cough and shortness of breath. Presents now with hypoxic respiratory failure Chest x-ray demonstrates diffuse interstitial pattern possible component of decompensated systolic heart failure superimposed on chronic interstitial lung disease. Impression: Acute respiratory distress secondary to mild congestive heart failure superimposed on progressive interstitial lung disease. Patient improved this morning. Renal function has declined slightly and blood pressure somewhat soft. No productive cough Echocardiogram not significantly changed from prior studies of an overall systolic function slightly improved mild pulmonary hypertension present. EF 40% Plan: No further diuretics. Hold spironolactone and Entresto Repeat BMP this afternoon. If renal function declines further will need to hold Xarelto dose Admission and Anticipated Discharge Date Admission Date: December 28, 2021 Subjective Patient seen and examined, chart, medications, telemetry reviewed. Telemetry sinus rhythm with occasional atrial and ventricular ectopy No significant arrhythmias. Patient feels improved this morning less dyspneic. No productive cough. No fevers or chills. Review of Systems Review of Systems: All systems reviewed & are unremarkable except as noted in Subjective Physical Exam Constitutional: well developed and well nourished Eyes: PERRL, conjunctivae normal, anicteric sclerae ENMT: external ear and nose normal, oropharynx normal Neck: trachea midline, no thyromegaly Cardiovascular: Rate/Rhythm: regular rate and regular rhythm Vessels: no JVD Extremities: no edema Chest (Breasts): Chest: normal inspection of chest Gastrointestinal (Abdomen): Percussion/Palpation: abdomen soft; abdomen nonten maycol, no guarding and no hepatosplenomegaly Musculoskeletal: no cyanosis or clubbing, extremities motor strength 5/5 Psychiatric: A+Ox3, euthymic affect Results & Data ([facility]) Vital Signs (Past 12 Hours) Vital Signs Temp Pulse Resp BP Pulse Ox 12/29/21 11:21 72 18 93 12/29/21 11:20 36.4 C L 86 18 96/62 L 94 12/29/21 08:09 36.7 C 92 H 18 108/60 98 12/29/21 07:10 90 18 95 12/29/21 03:20 36.4 C L 89 18 113/65 97 Laboratory Results Laboratory Results - last 24 hr 12/28/21 12/28/21 12/28/21 11:38 12:40 13:51 WBC RBC Hgb Hct MCV MCH MCHC RDW Std Deviation RDW Coeff of Ygoi Plt Count MPV Absolute Nucleated RBC Nucleated RBC % (auto) Sodium Potassium Chloride Carbon Dioxide Anion Gap BUN Creatinine Est Cr Clr Drug Dosing Est GFR ( Amer) Est GFR (Non-Af Amer) BUN/Creatinine Ratio Glucose Lactate 1.4 Calcium Magnesium Total Bilirubin Direct Bilirubin AST ALT Alkaline Phosphatase Troponin I 0.03 B-Natriuretic Peptide 173 H Total Protein Albumin Adenovirus (PCR) B. pertussis DNA (PCR) B.parapertussis DNA PCR C. pneumoniae DNA (PCR) Coronavirus OC43 (PCR) Coronavirus HKU1 (PCR) Coronavirus 229E (PCR) SARS-CoV-2 (PCR) Coronavirus NL63 (PCR) Human Metapneumovir PCR Influenza Type A (PCR) Influenza Type B (PCR) M. pneumoniae (PCR) Parainfluenza 1 (PCR) Parainfluenza 2 (PCR) Parainfluenza 3 (PCR) Parainfluenza 4 (PCR) RSV (PCR) Entero/Rhino (PCR) 12/28/21 12/28/21 12/29/21 14:00 21:20 05:53 WBC RBC Hgb Hct MCV MCH MCHC RDW Std Deviation RDW Coeff of Yogi Plt Count MPV Absolute Nucleated RBC Nucleated RBC % (auto) Sodium 132 L Potassium 4.2 Chloride 98 Carbon Dioxide 25 Anion Gap 9 BUN 44 H Creatinine 2.25 H D Est Cr Clr Drug Dosing 36.1 Est GFR ( Amer) 32.3 Est GFR (Non-Af Amer) 27.9 BUN/Creatinine Ratio 19.6 Glucose 135 H Lactate Calcium 8.3 L Magnesium 2.3 Total Bilirubin 0.5 D Direct Bilirubin 0.0 AST 27 ALT 57 H Alkaline Phosphatase 113 H Troponin I 0.03 B-Natriuretic Peptide Total Protein 6.8 Albumin 3.5 Adenovirus (PCR) Not Detected B. pertussis DNA (PCR) Not Detected B.parapertussis DNA PCR Not Detected C. pneumoniae DNA (PCR) Not Detected Coronavirus OC43 (PCR) Not Detected Coronavirus HKU1 (PCR) Not Detected Coronavirus 229E (PCR) Not Detected SARS-CoV-2 (PCR) Not Detected Coronavirus NL63 (PCR) Not Detected Human Metapneumovir PCR Not Detected Influenza Type A (PCR) Not Detected Influenza Type B (PCR) Not Detected M. pneumoniae (PCR) Not Detected Parainfluenza 1 (PCR) Not Detected Parainfluenza 2 (PCR) Not Detected Parainfluenza 3 (PCR) Not Detected Parainfluenza 4 (PCR) Not Detected RSV (PCR) Not Detected Entero/Rhino (PCR) Not Detected 12/29/21 05:53 WBC 11.68 H RBC 3.65 L Hgb 11.0 L Hct 34.9 L MCV 95.6 MCH 30.1 MCHC 31.5 L RDW Std Deviation 55.3 H RDW Coeff of Yogi 15.8 H Plt Count 208 MPV 10.8 H Absolute Nucleated RBC 0.08 H Nucleated RBC % (auto) 0.7 Sodium Potassium Chloride Carbon Dioxide Anion Gap BUN Creatinine Est Cr Clr Drug Dosing Est GFR ( Amer) Est GFR (Non-Af Amer) BUN/Creatinine Ratio Glucose Lactate Calcium Magnesium Total Bilirubin Direct Bilirubin AST ALT Alkaline Phosphatase Troponin I B-Natriuretic Peptide Total Protein Albumin Adenovirus (PCR) B. pertussis DNA (PCR) B.parapertussis DNA PCR C. pneumoniae DNA (PCR) Coronavirus OC43 (PCR) Coronavirus HKU1 (PCR) Coronavirus 229E (PCR) SARS-CoV-2 (PCR) Coronavirus NL63 (PCR) Human Metapneumovir PCR Influenza Type A (PCR) Influenza Type B (PCR) M. pneumoniae (PCR) Parainfluenza 1 (PCR) Parainfluenza 2 (PCR) Parainfluenza 3 (PCR) Parainfluenza 4 (PCR) RSV (PCR) Entero/Rhino (PCR)
[2021-12-29 15:02] LABS: BUN Creatinine Ratio 23.2 (10-20); Calcium 8.6 mg/dl (8.5-10.1); Creatinine Clr Calc Pharmacy 36.5 ml/min; Est GFR (African American) 32.5 ml/min; Potassium 4.9 mmol/L (3.5-5.1)
--- NOTE | 2021-12-29 17:34 | Hospitalist Progress Note ---
Date of Service December 29, 2021 Assessment & Plan (1) Acute respiratory failure with hypoxia: Plan: Patient presents with acute respiratory failure with hypoxia. Initially my clinical suspicion was heart failure as he has a history of cardiomyopathy He had a negative flu and Covid and bio fire He does have a significant smoking history and is scheduled for bronchoscopy with and the month subsequently this could be a fibrotic change to his lung from previous lung injury however he has never been formally diagnosed with COPD. Clinically he was wheezing and this is now resolved after steroids and nebulized beta agonist and ipratropium He was rescued with BiPAP in the emergency department this was stopped and now has been transitioned to room air Patient likely had exacerbation of COPD with superimposed pulmonary fibrosis. He is markedly improved after inhaled medications and steroids and these likely need to be continued I do believe heart failure has been ruled out as an etiology and his diuretics Entresto are being held at this time due to low blood pressure and acute kidney injury (2) NICM (nonischemic cardiomyopathy): Plan: Patient is treated by Dr. Trejo for nonischemic cardiomyopathy he will have his Entresto and Lasix / spironolactone held. (3) CKD (chronic kidney disease) stage 3, GFR 30-59 ml/min: Plan: Acute kidney injury on chronic kidney disease stage III this is worsened but stayed stable if worsens consideration to adjustment of Xarelto dose due to renal function would be warranted (4) Paroxysmal atrial fibrillation: Plan: Patient is not in atrial fibrillation at this time he does have a pacemaker is on metoprolol for rate control he is anticoagulated Xarelto. 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 These all point to the likelihood that the majority of his respiratory distress was likely related to his interstitial lung disease and although he had crackles and x-rays consistent with heart failure these will likely persist and he may have improved the most from steroid treatment for possible underlying COPD Review of Systems Review of Systems: Severe respiratory distress on presentation no headache, no visual changes no speech or swallowing issues no chest pain, pressure or palpitations Dyspnea at rest cough productive of clear mucus no abdominal pain, nausea or vomiting, diarrhea or constipation no dysuria, hematuria or frequency no focal joint pain or swelling no back pain, CVA tenderness or radicular pain no bruising, bleeding or rashes no focal signs of weakness or numbness or altered sensation no complaints of anxiety or depression.. Physical Exam Physical Exam: The patient appeared well nourished and normally developed. He is now comfortable off of BiPAP Vital signs as documented. Head exam is normocephalic atraumatic Neck is with 2 cm JVD, no thyromegaly, or carotid bruits. Lungs rales at the bases resolution of expiratory wheezes Abdominal exam reveals normal bowel sounds, soft non tender, no masses Extremities are trace edema and both pedal pulses are present Neurologic exam is alert and oriented, no focal loss of strength or sensation Skin is without bruises or rashes Psychologically is without concerns for anxiety or depression.. Results & Data Results & Data ([facility]) Vital Signs (Past 12 Hours) Vital Signs Temp Pulse Resp BP Pulse Ox 12/29/21 16:00 98.4 F 100 H 25 H 97/58 L 94 12/29/21 15:59 81 18 94 12/29/21 11:21 72 18 93 12/29/21 11:20 97.5 F L 86 18 96/62 L 94 12/29/21 08:09 98.1 F 92 H 18 108/60 98 12/29/21 07:10 90 18 95 PG Care Time/CCT Total # of Minutes Spent Total Time Spent with Patient: Total time spent is greater than 50% in coordination of care (as documented) at patient's floor/unit and/or counseling patient: Coding Level of Care Code 24788 Subseq Hosp Care Lvl 3 Diagnoses Acute respiratory failure with hypoxia J96.01 NICM (nonischemic cardiomyopathy) I42.8 CKD (chronic kidney disease) stage 3, GFR 30-59 ml/min N18.3 Paroxysmal atrial fibrillation I48.0 Chronic systolic heart failure I50.22 AAA (abdominal aortic aneurysm) I71.4 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
[2021-12-29] MEDS: ATORVASTATIN 40 MG TAB PO SCH (20:24)
[2021-12-29] MEDS: RIVAROXABAN 20 MG TAB PO SCH (20:24)
[2021-12-30] MEDS: ALBUT/IPRATROP 3MG/0.5MG NEB 3 ML VIAL NEB SCH ×3 (03:55→10:51)
[2021-12-30 06:08] LABS: Hematocrit (blood only) 34.5 % (42-52); Hemoglobin 10.8 g/dL (14.0-18.0); Mean Corpuscular Hemoglobin 30.3 pg (25-34); Mean Corpuscular Hgb Conc 31.3 g/dL (32-36); Mean Corpuscular Volume 96.6 fL (80-100); Mean Platelet Volume 11.3 fL (7.4-10.4); Nucleated RBC # (auto) 0.02 K/uL (0-0); Nucleated RBC % (auto) 0.1 %; Platelet Count 266 K/uL (130-400); RDW Standard Deviation 56.7 fL (36.4-46.3); Red Blood Count 3.57 M/uL (4.7-6.1); White Blood Count 17.17 K/uL (4.8-10.8)
[2021-12-30] MEDS: PANTOprazole 40 MG TAB PO SCH (06:21)
[2021-12-30 06:31] LABS: Creatinine Clr Calc Pharmacy 38.3 ml/min; Est GFR (African American) 34.5 ml/min; Est GFR (Non-African American) 29.8 ml/min; Magnesium 2.3 mg/dl (1.7-2.4)
[2021-12-30] MEDS: DOXYCYCLINE HYCLATE 100 MG CAP PO SCH ×2 (08:46→20:20)
[2021-12-30] MEDS: METOPROLOL SUCC 50MG EXT REL TAB PO SCH ×2 (08:46→20:20)
[2021-12-30] MEDS: CETIRIZINE HCL 10 MG TABLET PO SCH (08:46)
[2021-12-30] MEDS: MULTIVITAMIN CHEWABLE TAB PO SCH (08:46)
[2021-12-30] MEDS: predniSONE 20 MG TAB PO SCH (09:35)
[2021-12-30] MEDS ORDERED: ALBUT/IPRATROP 3MG/0.5MG NEB 3 ML VIAL NEB PRN (11:46)
--- NOTE | 2021-12-30 13:54 | Hospitalist Progress Note ---
Date of Service December 30, 2021 Assessment & Plan (1) Acute respiratory failure with hypoxia: Plan: Patient presents with acute respiratory failure with hypoxia. He had a negative flu and Covid and bio fire He does have a significant smoking history and is scheduled for bronchoscopy / EBUS 01/06/22. Wheezing now resolved after steroids and nebulized beta agonist and ipratropium He was rescued with BiPAP in the emergency department this was stopped and now has been transitioned to room air Patient likely had exacerbation of COPD with superimposed pulmonary fibrosis. He is markedly improved after inhaled medications and steroids and these likely need to be continued at discharge. Diuretics and Entresto are being held at this time due to low blood pressure and acute kidney injury (2) NICM (nonischemic cardiomyopathy): Plan: Patient is treated by Dr. Trejo for nonischemic cardiomyopathy. Entresto and Lasix / spironolactone held. (3) CKD (chronic kidney disease) stage 3, GFR 30-59 ml/min: Plan: Acute kidney injury on chronic kidney disease stage III . Monitor intake and output. Serial labs (4) Paroxysmal atrial fibrillation: Plan: Patient is not in atrial fibrillation at this time. He does have a pacemaker and is on metoprolol for rate control. He is anticoagulated with Xarelto. 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 He agrees to repeat chest x-ray today, December 30. Entresto and spironolactone remain on hold. Appreciate cardiology consultation. He is now on room air. Bronchoscopy with EBUS planned for January 06. Review of Systems Review of Systems: Constitutional-no fever or chills ENT-no blurred vision, no double vision, no epistaxis, no sore throat Respiratory-no cough, no wheezing. Shortness of breath with exertion Cardiac-no palpitations, no chest pain, no syncope GI-no nausea, vomiting, diarrhea, melena, hematochezia -no urinary retention, no urinary incontinence, no dysuria, no hematuria Musculoskeletal-no joint pain, no muscle tenderness Skin-no bruising, no rashes, no pruritus Neuro-no isolated weakness, no paresthesia, no weakness Psych-no depression, no anxiety Physical Exam Physical Exam: General-alert and oriented x3, no fevers, no chills HEENT-head atraumatic and normocephalic, TMs intact bilaterally, pupils equal and reactive to light, extraocular muscles intact Neck-no lymphadenopathy or thyromegaly, trachea midline Chest-faint bibasilar inspiratory rales. No wheezing. No rhonchi. Cardiac-regular rate and rhythm, normal S1 and S2, no murmurs Abdomen-normal bowel sounds, nontender, no hepatosplenomegaly Extremities-no cyanosis, clubbing, or edema Neuro-cranial nerves II through XII intact, motor and sensory function within normal limits, strength symmetrical 5/5, no focal deficits Psych-normal affect, normal mood Results & Data Results & Data ([facility]) Vital Signs (Past 12 Hours) Vital Signs Temp Pulse Pulse Pulse Resp BP Pulse Ox 12/30/21 12:05 36.4 C L 87 18 108/66 96 12/30/21 10:51 64 16 93 12/30/21 08:21 36.4 C L 74 19 104/65 94 12/30/21 07:01 87 20 93 12/30/21 07:00 88 12/30/21 03:56 82 12/30/21 02:55 36.4 C L 84 18 101/69 91 Pulse Ox 12/30/21 12:05 12/30/21 10:51 12/30/21 08:21 12/30/21 07:01 12/30/21 07:00 12/30/21 03:56 90 12/30/21 02:55 Laboratory Results 12/30/21 05:33 12/30/21 05:33 PG Care Time/CCT Total # of Minutes Spent Total Time Spent with Patient: Total time spent is greater than 50% in coordination of care (as documented) at patient's floor/unit and/or counseling patient: Coding Level of Care Code 28450 Subseq Hosp Care Lvl 3 Diagnoses Acute respiratory failure with hypoxia J96.01 NICM (nonischemic cardiomyopathy) I42.8 CKD (chronic kidney disease) stage 3, GFR 30-59 ml/min N18.3 Paroxysmal atrial fibrillation I48.0 Chronic systolic heart failure I50.22 AAA (abdominal aortic aneurysm) I71.4 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
--- NOTE | 2021-12-30 15:15 | Cardiology Progress Note ---
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 He has recently been identified to have progressively worsening interstitial lung disease by chest x-ray and CAT scan and has preliminary plans for diagnostic bronchoscopy with EBUS on 01/06/2022. In the interim patient's had difficulties with worsening dyspnea culminating in 2 days of inability to sleep outside of a recliner with cough and shortness of breath. Presents now with hypoxic respiratory failure Chest x-ray demonstrates diffuse interstitial pattern possible component of decompensated systolic heart failure superimposed on chronic interstitial lung disease. Impression: Acute respiratory distress secondary to mild congestive heart failure superimposed on progressive interstitial lung disease. Echocardiogram not significantly changed from prior studies of an overall systolic function slightly improved mild pulmonary hypertension present. EF 40% Patient responding to pulmonary therapies Plan: No further diuretics. Continue to hold spironolactone and Entresto Follow renal function possibly restart Entresto at lower dosing depending on renal response Admission and Anticipated Discharge Date Admission Date: December 28, 2021 Subjective Patient seen and examined chart medications reviewed. Overall notes no complaints. Less dyspneic less hypoxia today oxygenating relatively well on room air. No acute weight gain or loss. Review of Systems Review of Systems: All systems reviewed & are unremarkable except as noted in Subjective Physical Exam Constitutional: well developed and well nourished Eyes: PERRL, conjunctivae normal, anicteric sclerae ENMT: external ear and nose normal, oropharynx normal Neck: trachea midline, no thyromegaly Respiratory: Auscultation: + crackles Cardiovascular: Rate/Rhythm: regular rate and regular rhythm Vessels: no JVD Extremities: no edema Chest (Breasts): Chest: normal inspection of chest Gastrointestinal (Abdomen): Percussion/Palpation: abdomen soft; abdomen nontender, no guarding and no hepatosplenomegaly Musculoskeletal: no cyanosis or clubbing, extremities motor strength 5/5 Psychiatric: A+Ox3, euthymic affect Results & Data ([facility]) Vital Signs (Past 12 Hours) Vital Signs Temp Pulse Pulse Pulse Resp BP Pulse Ox 12/30/21 15:01 84 22 95 12/30/21 12:05 36.4 C L 87 18 108/66 96 12/30/21 10:51 64 16 93 12/30/21 08:21 36.4 C L 74 19 104/65 94 12/30/21 07:01 87 20 93 12/30/21 07:00 88 12/30/21 03:56 82 Pulse Ox 12/30/21 15:01 12/30/21 12:05 12/30/21 10:51 12/30/21 08:21 12/30/21 07:01 12/30/21 07:00 12/30/21 03:56 90 Laboratory Results Laboratory Results - last 24 hr 12/29/21 12/30/21 12/30/21 14:10 05:33 05:33 WBC 17.17 H RBC 3.57 L Hgb 10.8 L Hct 34.5 L MCV 96.6 MCH 30.3 MCHC 31.3 L RDW Std Deviation 56.7 H RDW Coeff of Yogi 16.0 H Plt Count 266 MPV 11.3 H Absolute Nucleated RBC 0.02 H Nucleated RBC % (auto) 0.1 Creatinine 2.13 H Est Cr Clr Drug Dosing 38.3 Est GFR ( Amer) 34.5 Est GFR (Non-Af Amer) 29.8 Magnesium 2.3 MIRANDA Screen Pending
--- NOTE | 2021-12-30 16:14 | Pulmonology Progress Note ---
Date of Service December 30, 2021 Assessment & Plan (1) Hypoxia: (2) CHF (congestive heart failure): Heart failure chronicity: acute on chronic Heart failure type: unspecified Qualified Code(s): I50.9 - Heart failure, unspecified (3) SOB (shortness of breath): (4) Interstitial lung disease: Plan: 71-year-old male with a history of pulmonary embolism on anticoagulation, nonischemic cardiomyopathy, AAA, atrial fibrillation and CKD stage III who presented to the hospital due to acute hypoxemic respiratory failure thought to be combination of CHF and ILD flare. Patient has already improved substantially since his initial presentation to the hospital. He likely has a combination of superimposed CHF over top of possible ILD flare. Agree with doxycycline and IV diuresis. Can continue with prednisone for the next 7 days. Differential for ILD includes, but is not limited to fibrotic HP, fibrotic NSIP and atypical NSIP. Antifibrotic therapy can be considered as an outpatient, but may prove difficult given his anticoagulation statis and chronic heart failure. MIRANDA screen ordered. Patient scheduled for outpatient PFTs with me next week. Patient can follow-up with me if preferred. No further recommendations at this time. Recommend two step oxygen qualification study prior to discharge. Pulmonary will sign off at this time. Please call with questions. Admission and Anticipated Discharge Date Admission Date: December 28, 2021 Subjective Patient continues to do well and denies any significant shortness of breath at rest. Cough is minimal. No chest pain or fever. Review of Systems Review of Systems: All systems reviewed & are unremarkable except as noted in Subjective Physical Exam Physical Exam: Constitutional: Patient appears to be of their stated age. Patient is in no apparent distress. Patient is well-developed. Eyes: Pupils are equal round and reactive to light. Conjunctivae are normal. Anicteric sclera. Ears nose, mouth and throat: No facial deformity seen Neck: Trachea is midline. Visual inspection is normal. Respiratory: Fine Velcro crackles noted in the bilateral lower lobes. Cardiovascular: Regular rate and rhythm. No murmurs. No edema. Gastrointestinal: Normal bowel sounds, soft, nontender and nondistended. No hepatosplenomegaly noted. Musculoskeletal: No cyanosis. Patient is able to move all extremities. Strength is 5 out of 5 in the upper and lower extremities. Skin: No rashes, warm dry and intact. Neurologic: No obvious focal neurological deficits seen. Psychiatric: Alert and oriented x3 with a euthymic affect. Results & Data Results & Data ([facility]) Vital Signs (Past 12 Hours) Vital Signs Temp Pulse Pulse Resp BP Pulse Ox 12/30/21 15:01 84 22 95 12/30/21 12:05 36.4 C L 87 18 108/66 96 12/30/21 10:51 64 16 93 12/30/21 08:21 36.4 C L 74 19 104/65 94 12/30/21 07:01 87 20 93 12/30/21 07:00 88 PG Care Time/CCT Total # of Minutes Spent Total Time Spent with Patient: Total time spent is greater than 50% in coordination of care (as documented) at patient's floor/unit and/or counseling patient: Coding Level of Care Code 30132 Subseq Hosp Care Lvl 2 Diagnoses Hypoxia R09.02 CHF (congestive heart failure) I50.9 Heart failure chronicity: acute on chronic Heart failure type: unspecified SOB (shortness of breath) R06.02 Interstitial lung disease J84.9
--- NOTE | 2021-12-30 17:09 | XRay Report ---
XR chest 1V portable CLINICAL HISTORY: CHF TECHNIQUE: Single frontal radiograph of the chest was obtained. Comparison: Comparison is made to chest one view 12/28/2021 FINDINGS: Pacemaker defibrillator is seen. The cardiomediastinal silhouette is normal. Prominence and cephaliza tion of the vasculature is seen. Peripheral interstitial thickening is again seen. No evidence of ple ural effusion or pneumothorax. IMPRESSION: Mild pulmonary edema. ACT 112: Negative or not required by law. Electronically signed by: Riley Angeles M.D. 12/30/2021 5:07 PM
[2021-12-30] MEDS: ATORVASTATIN 40 MG TAB PO SCH (20:20)
[2021-12-30] MEDS ORDERED: RIVAROXABAN 15 MG TAB PO SCH (21:00)
[2021-12-31] MEDS: PANTOprazole 40 MG TAB PO SCH (05:26)
[2021-12-31 06:00] LABS: Hematocrit (blood only) 33.4 % (42-52); Hemoglobin 10.8 g/dL (14.0-18.0); Mean Corpuscular Hemoglobin 30.8 pg (25-34); Mean Corpuscular Hgb Conc 32.3 g/dL (32-36); Mean Corpuscular Volume 95.2 fL (80-100); Mean Platelet Volume 10.6 fL (7.4-10.4); Platelet Count 260 K/uL (130-400); RDW Standard Deviation 55.5 fL (36.4-46.3); Red Blood Count 3.51 M/uL (4.7-6.1); White Blood Count 14.42 K/uL (4.8-10.8)
[2021-12-31 06:23] LABS: Albumin Level 3.4 gm/dl (3.4-5.0); Bilirubin,Total 0.4 mg/dl (0.2-1.0); Creatinine Clr Calc Pharmacy 47.4 ml/min; Est GFR (African American) 43.2 ml/min; Est GFR (Non-African American) 37.3 ml/min; Magnesium 2.1 mg/dl (1.7-2.4); Total Protein 7.1 gm/dl (6.0-8.3)
[2021-12-31] MEDS: DOXYCYCLINE HYCLATE 100 MG CAP PO SCH (08:09)
[2021-12-31] MEDS: CETIRIZINE HCL 10 MG TABLET PO SCH (08:09)
[2021-12-31] MEDS: METOPROLOL SUCC 50MG EXT REL TAB PO SCH (08:11)
[2021-12-31] MEDS: predniSONE 20 MG TAB PO SCH (08:12)
[2021-12-31] MEDS: MULTIVITAMIN CHEWABLE TAB PO SCH (08:12)
--- NOTE | 2021-12-31 12:36 | Cardiology Progress Note ---
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 He has recently been identified to have progressively worsening interstitial lung disease by chest x-ray and CAT scan and has preliminary plans for diagnostic bronchoscopy with EBUS on 01/06/2022. In the interim patient's had difficulties with worsening dyspnea culminating in 2 days of inability to sleep outside of a recliner with cough and shortness of breath. Presents now with hypoxic respiratory failure Chest x-ray demonstrates diffuse interstitial pattern possible component of decompensated systolic heart failure superimposed on chronic interstitial lung disease. Impression: Acute respiratory distress secondary to mild congestive heart failure superimposed on progressive interstitial lung disease. Echocardiogram not significantly changed from prior studies of an overall systolic function slightly improved mild pulmonary hypertension present. EF 40% Patient responding to pulmonary therapies Plan: Renal function now improving. Suspect component of congestive heart failure secondary to hypoxia now improved with oxygen supplementation. Will need oxygen supplementation on discharge Continue anticoagulation with Xarelto Plan on resuming Entresto at reduced dose 26/24 mg twice per day in a.m. Resume furosemide and spironolactone day following Monday Patient has outpatient cardiology follow-up on 01/21/2022 Will require close pulmonary follow-up Admission and Anticipated Discharge Date Admission Date: December 28, 2021 Subjective Seen and examined, chart, medications, telemetry reviewed. Physical Exam Constitutional: well developed and well nourished Eyes: PERRL, conjunctivae normal, anicteric sclerae ENMT: external ear and nose normal, oropharynx normal Neck: trachea midline, no thyromegaly Respiratory: Auscultation: + crackles Cardiovascular: Rate/Rhythm: regular rate and regular rhythm Vessels: no JVD Extremities: no edema Chest (Breasts): Chest: normal inspection of chest Gastrointestinal (Abdomen): Percussion/Palpation: abdomen soft; abdomen nontender, no guarding and no hepatosplenomegaly Musculoskeletal: no cyanosis or clubbing, extremities motor strength 5/5 Psychiatric: A+Ox3, euthymic affect Results & Data ([facility]) Vital Signs (Past 12 Hours) Vital Signs Temp Pulse Pulse Pulse Pulse Pulse Pulse 12/31/21 10:37 36.3 C L 86 12/31/21 08:29 106 H 92 H 101 H 79 12/31/21 08:00 82 12/31/21 07:19 36.6 C 79 12/31/21 03:25 36.5 C 83 Pulse Resp Resp Resp Resp Resp Resp 12/31/21 10:37 18 12/31/21 08:29 61 26 H 22 26 H 20 18 12/31/21 08:00 12/31/21 07:19 16 12/31/21 03:25 16 BP BP Pulse Ox Pulse Ox Pulse Ox Pulse Ox Pulse Ox 12/31/21 10:37 124/74 96 12/31/21 08:29 86 L 91 83 L 91 12/31/21 08:00 12/31/21 07:19 114/71 95 12/31/21 03:25 123/67 97 Pulse Ox 12/31/21 10:37 12/31/21 08:29 94 12/31/21 08:00 12/31/21 07:19 12/31/21 03:25 Laboratory Results Laboratory Results - last 24 hr 12/31/21 12/31/21 05:43 05:43 WBC 14.42 H RBC 3.51 L Hgb 10.8 L Hct 33.4 L MCV 95.2 MCH 30.8 MCHC 32.3 RDW Std Deviation 55.5 H RDW Coeff of Yogi 16.0 H Plt Count 260 MPV 10.6 H Creatinine 1.77 H D Est Cr Clr Drug Dosing 47.4 Est GFR ( Amer) 43.2 Est GFR (Non-Af Amer) 37.3 Magnesium 2.1 Total Bilirubin 0.4 Direct Bilirubin 0.0 AST 39 ALT 89 H Alkaline Phosphatase 122 H Total Protein 7.1 Albumin 3.4 Medications Administered Current Medications Acetaminophen (Acetaminophen 325 Mg Tab) 650 mg PO Q4H PRN PRN Reason: Pain or Fever Stop: 01/27/22 13:45 Albuterol (Albut/Ipratrop 3mg/0.5mg Neb 3 Ml Vial) 3 ml NEB Q4R PRN; Protocol PRN Reason: Shortness Of Breath Or Wheezing Stop: 01/27/22 14:59 Last Admin: 12/30/21 15:00 Dose: 3 ml Documented by: Atorvastatin Calcium (Atorvastatin 40 Mg Tab) 40 mg PO PM [facility] Stop: 01/27/22 20:59 Last Admin: 12/30/21 20:20 Dose: 40 mg Documented by: Cetirizine HCl (Cetirizine Hcl 10 Mg Tablet) 5 mg PO QAM [facility] Stop: 01/28/22 08:59 Last Admin: 12/31/21 08:09 Dose: 5 mg Documented by: Doxycycline Hyclate (Doxycycline Hyclate 100 Mg Cap) 100 mg PO Q12H [facility] Stop: 01/04/22 19:59 Last Admin: 12/31/21 08:09 Dose: 100 mg Documented by: Metoprolol Succinate (Metoprolol Succ 50mg Ext Rel Tab) 50 mg PO BID [facility] Stop: 01/27/22 20:59 Last Admin: 12/31/21 08:11 Dose: 50 mg Documented by: Multivitamins/Folic Acid/Vitamin C (Multivitamin Chewable Tab) 1 tab PO QAM [facility] Stop: 01/28/22 08:59 Last Admin: 12/31/21 08:12 Dose: 1 tab Documented by: Ondansetron HCl (Ondansetron Inj 2 Mg/Ml 2 Ml Vial) 4 mg IV Q6H PRN PRN Reason: Nausea Stop: 01/27/22 13:45 Pantoprazole Sodium (Pantoprazole 40 Mg Tab) 40 mg PO DAILYBB [facility] Stop: 01/28/22 06:29 Last Admin: 12/31/21 05:26 Dose: 40 mg Documented by: Polyethylene Glycol (Polyethylene (Miralax) 17 Gm Pack) 17 gm PO DAILY PRN PRN Reason: Constipation Stop: 01/27/22 13:45 Prednisone (Prednisone 20 Mg Tab) 40 mg PO DAILY [facility] Stop: 01/28/22 08:59 Last Admin: 12/31/21 08:12 Dose: 40 mg Documented by: Rivaroxaban (Rivaroxaban 15 Mg Tab) 15 mg PO HS [facility]; Protocol Stop: 01/29/22 20:59 Last Admin: 12/30/21 21:09 Dose: 15 mg Documented by: Sacubitril/Valsartan (Valsartan/Sacubitril 51/49 Mg Tab) 1 tab PO BID [facility] Stop: 01/27/22 20:59 Last Admin: 12/29/21 08:44 Dose: 1 tab Documented by:
[2021-12-31 13:13] LABS: Troponin I 0.03 ng/ml (0-0.04)
[2021-12-31 13:22] LABS: BUN Creatinine Ratio 36.5 (10-20); Creatinine Clr Calc Pharmacy 52.7 ml/min; Est GFR (African American) 49.2 ml/min; Est GFR (Non-African American) 42.4 ml/min; Potassium 4.4 mmol/L (3.5-5.1)
--- NOTE | 2021-12-31 15:55 | Discharge Summary ---
Date of Service December 31, 2021 Admission HPI Per Admitting Provider 71-year-old male with a history of chronic systolic heart failure managed by Dr. Neil Hunt who presents with acute respiratory failure with hypoxia which required rescue with BiPAP. Reportedly the patient had a shan last 1 years time. He is an outpatient provider who gave him Augmentin and prednisone taper about 1 week prior but this did not help. He also reportedly is having a bronchoscopy done [facility] January 06 for pulmonary nodule based upon images that are in the [employer] system. The patient did smoke for quite some time is quit for many years he has audible wheezing on exam his chest x-ray looks consistent with volume overload pulmonary edema. He has an outpatient Entresto and does have a pacemaker in place In the emergency department he was given intravenous Lasix had his respiratory distress treated with BiPAP and was given cefepime although he does not have any infectious symptoms other than his dyspnea. He is negative for Covid and influenza. Initial troponins unremarkable We brought in our facility serial enzymes will be taken to be given intravenous diuretics supporting his breathing have a consultation with [facility] for reevaluation of his heart failure regime. Last echocardiogram was in 2020 will await their evaluation before ordering another echo on this gentleman. With regard to his likely undiagnosed COPD begin prednisone 40 duo nebs and doxycycline. Likely may benefit from standard inhaled medications at time of discharge Principal Diagnosis Acute hypoxic respiratory failure Interstitial lung disease flare Discharge Exam Constitutional WD/WN, vitals as above ENMT external ear and nose normal, oropharynx normal Neck trachea midline, no thyromegaly Respiratory normal respiratory effort Auscultation: + crackles (fine posteriorly); no wheezes Cardiovascular RRR, no murmur, no edema Musculoskeletal Extremities: extremities normal to inspection; no cyanosis and no clubbing Skin no rashes, warm and dry Neurologic moves all extremities and awake; no focal motor deficits Psychiatric A+Ox3, euthymic affect Discharge Data Allergies Allergy/AdvReac Type Severity Reaction Status Date / Time diphtheria toxoid,fluid Allergy Severe CONVULSIONS--HORSE Verified 12/28/21 13:07 SERUM BASE tetanus toxoid, adsorbed Allergy Severe CONVULSIONS--HORSE Verified 12/28/21 13:07 SERUM BASE Consultations 12/28/21 11:59 ED Decision to Admit Stat 12/28/21 13:46 Consult Cardiology Routine 12/28/21 16:16 Consult Pulmonology Routine Hospital Course (1) Acute respiratory failure with hypoxia: Mauro Jaquez is a 71 year old male admitted to [facility] from December 28-2021 due to shortness of breath and low oxygen levels. He was diagnosed with a flare up of interstitial lung disease and congestive heart failure. On discussion with cardiology suspect pulmonary edema secondary to hypoxia due to interstitial lung disease as he did not require significant diuresis during inpatient stay. In fact diuretics were held for the last 2 days with improvement with shortness of breath and hypoxia. 2 step on day of discharge showed no need for oxygen at rest however still requiring 3 L/min on exertion. Congestive heart failure - discussed with cardiology and recommend reducing your Entresto dose as prescribed. He should furosemide (40 mg once daily) and spironolactone as prescribed on Monday. He will follow up with [facility] cardiology for ongoing adjustments as previously arranged on 01/21/2022. Interstitial lung disease - improvement during inpatient stay with intravenous solu-medrol. He will continue on prednisone taper as prescribed. He was also started on doxycycline for possible atypical pneumonia and this will continue for a further 4 days on discharge. Xarelto dose was decreased due to reduced eGFR. He should follow up with [facility] pulmonology as previously arranged and will call the office on Monday to decide wether to delay his upcoming bronchoscopy. 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: Total Time Total Time Spent Total Time Spent (In Minutes): 40 Discharge Plan Discharge Items Patient Disposition: Home - Self-Care Reason For Visit: ACUTE SYSTOLIC HEART FAILURE, ACUTE RESP FAILURE Discharge Diagnosis: Acute hypoxic respiratory failure Interstitial lung disease flare Condition on Discharge: Fair Activity: Per Instructions section Non-emergency contact: Primary Care Provider Call non-emergency contact if: you have any medication questions and your sy mptoms worsen Follow-up/Referrals: Kinga Diaz MD [Primary Care Provider] - Mauro Parekh MD [Physician] - 01/21/22 (Cardiology follow up 01/21) Michael Lopez MD [Outside Practitioners] - (Pulmonology follow up) Diet: Heart Healthy and Low Sodium (2gm) Ambulatory Orders: Basic Metabolic Panel (Routine) Timeframe: [id number] Location: Determined by Patient Ordered By: Suman Bronson Attending Provider Instructions: You were admitted to [facility] from December 28-2021 due to shortness of breath and low oxygen levels. You were diagnosed with a flare up of interstitial lung disease and congestive heart failure. On discussion with cardiology suspect your congestive heart failure is secondary to the low oxygen levels due to interstitial lung disease as you have not required significant diuresis during inpatient stay. In fact your diuretics have been stopped for the last 2 days with improvement with your shortness of breath and oxygen levels. You are no longer requiring any oxygen at rest however still requiring 3 L/min on exertion. This has been prescribed for you. Congestive heart failure - discussed with cardiology and recommend reducing your Entresto dose as prescribed. Please resume furosemide (40 mg once daily) and spironolactone as prescribed on Monday (do not take spironolactone or furosemide tomorrow). Please continue to follow-up with [facility] cardiology as an outpatient as previously arranged on 01/21/2022. Interstitial lung disease -please continue prednisone as prescribed. If you are getting short of breath after stopping this please call your moss bleacher as you may need a prolonged course. Given difficulty to rule out an atypical pneumonia you were started on doxycycline (antibiotic) and this to be continued for a further 4 days on discharge. Xarelto dose was decreased due to your current renal function. Please call you [facility] moss bleacher for ongoing follow up. Pending Studies at Discharge: No Stand-Alone Forms: My [facility], Smoking Cessation Medications and DC Order Prescriptions: New Xarelto 15 mg Tablet 15 mg PO HS Qty: 30 RF: 0 Entresto 24-26 mg Tablet 1 tab PO BID Qty: 60 RF: 0 doxycycline hyclate 100 mg tablet 100 mg PO BID 4 Days Qty: 8 RF: 0 prednisone 20 mg tablet See Rx Instructions .ROUTE .COMPLEX 10 Days Qty: 16 RF: 0 Continued folic acid 1 mg tablet 1 mg PO QDL RF: 0 metoprolol succinate 50 mg tablet extended release 24 hr 50 mg PO BID RF: 0 cetirizine [Zyrtec] 10 mg tablet 5 mg PO QAM RF: 0 atorvastatin 40 mg Tablet 40 mg PO HS RF: 0 cyanocobalamin (vitamin B-12) [Vitamin B-12] 1,000 mcg Tablet 1,000 mcg PO QDL RF: 0 cholecalciferol (vitamin D3) [Vitamin D3] 25 mcg (1,000 unit) Capsule 2,000 unit PO QDL RF: 0 spironolactone 25 mg tablet 12.5 mg PO QAM RF: 0 pantoprazole 20 mg tablet,delayed release (DR/EC) 20 mg PO DAILYBB RF: 0 albuterol sulfate 90 mcg/actuation HFA aerosol inhaler 2 inh inhalation Q4H PRN (Reason: shortness of breath or wheezing) Qty: 8.5 RF: 0 Changed furosemide 40 mg tablet 40 mg PO QAM Qty: 0 RF: 0 Discontinued Xarelto 20 mg Tablet 20 mg PO HS RF: 0 Entresto 49-51 mg Tablet 1 tab PO BID RF: 0 Discharge Orders: Discharge Order (Routine); Ordered 12/31/21 Ordered By: Suman Bruno/Other Patient Handouts: Understanding Oxygen Therapy, Using Oxygen Safely, Using an Oxygen Tank at Home Admission Data Admit Date/Time: 12/28/21 12:41 Attending Provider: Suman Ball Admit Provider: Ja Tejeda Primary Care Provider: Kinga Diaz Other Providers: Ja Tejeda ; Ja Trejo ; Jules Mayer ; Be Christensen ; Abhijeet Dawkins ; Titus Orozco ; Mary Pineda Other Interventions: Discharge Summary Assessment (RN) Last Done: 12/31/21 16:04 Coding Level of Care Code D/C DAY MANAGEMENT >30 MINS Diagnoses Acute respiratory failure with hypoxia J96.01 NICM (nonischemic cardiomyopathy) I42.8 CKD (chronic kidney disease) stage 3, GFR 30-59 ml/min N18.3 Paroxysmal atrial fibrillation I48.0 Chronic systolic heart failure I50.22 AAA (abdominal aortic aneurysm) I71.4 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
[2021-12-31 16:16] LABS: Anti Nuclear Antibody Screen NEGATIVE (NEGATIVE)
[2022-01-01] MEDS ORDERED: VALSARTAN/SACUBITRIL 26/24MG TAB PO SCH (09:00)
== END 2021-12-31 16:54 | disposition home or self-care (01) | DRG 196 ==
LOC: ED 10:30 → SUATTDRO 12:41 → 1E 12:41 → 2S 12-29 18:13

== ENCOUNTER 2022-03-01 12:37 | Inpatient (IN) ==
[2022-03-01] MEDS ORDERED: MoRPHine SULFATE 4 MG/ML 1 ML CARP\\VIAL IV STA (13:04)
[2022-03-01] MEDS ORDERED: ACETAMINOPHEN 1,000 MG/100 ML VIAL IV STA (13:04)
[2022-03-01 13:43] LABS: Mean Corpuscular Hgb Conc 31.9 g/dL (32-36); Mean Platelet Volume 10.4 fL (7.4-10.4); Nucleated RBC # (auto) 0.12 K/uL (0-0); Nucleated RBC % (auto) 0.7 %; Platelet Count 598 K/uL (130-400)
--- NOTE | 2022-03-01 13:44 | XRay Report ---
SINGLE VIEW CHEST CLINICAL HISTORY: Atypical chest pain. FINDINGS: An AP, portable, upright chest radiograph is compared to study dated 12/30/2021 and correlate d with chest CT dated 11/20/2019. A 2-lead cardiac AICD is unchanged in position. The heart is enlarge d noting atherosclerotic calcification of the thoracic aorta. Findings of chronic interstitial lung d isease are again noted. Airspace opacities at both lung bases are similar to 12/30/2021 examination. No large pleural effusion or pneumothorax is seen. The skeletal structures are osteopenic. The bony tho rax is grossly intact. Degenerative change is noted in the shoulders and thoracic spine. IMPRESSION: 1. Cardiomegaly and AICD with no radiographic evidence of congestive failure. 2. Findings of chronic interstitial lung disease are similar to previous. 3. Bibasilar airspace opacities are similar to the 12/30/2021 examination. This may be related to chron ic lung disease. Correlate clinically for evidence of a superimposed infectious/inflammatory pneumoni tis. ACT 112: Negative or not required by law. Electronically signed by: Be Domínguez M.D. 03/01/2022 1:41 PM
[2022-03-01 14:03] LABS: INR 1.4 (0.9-1.1); Prothrombin Time 14.5 Seconds (9.0-12.0)
[2022-03-01 14:06] LABS: Albumin Globulin Ratio 0.7 (0.9-2); Albumin Level 3.2 gm/dl (3.4-5.0); BUN Creatinine Ratio 23.8 (10-20); Calcium 9.7 mg/dl (8.5-10.1); Creatinine Clr Calc Pharmacy 55.7 ml/min; Est GFR (African American) 52.4 ml/min; Est GFR (Non-African American) 45.2 ml/min; Globulin 4.4 gm/dl (2.5-4.0); Magnesium 1.6 mg/dl (1.7-2.4); Potassium 4.4 mmol/L (3.5-5.1); Total Protein 7.6 gm/dl (6.0-8.3)
[2022-03-01 14:09] LABS: Hematocrit (blood only) 24.8 % (42-52); Hemoglobin 7.9 g/dL (14.0-18.0); Mean Corpuscular Hemoglobin 29.8 pg (25-34); Mean Corpuscular Volume 93.6 fL (80-100); RDW Standard Deviation 56.8 fL (36.4-46.3); Red Blood Count 2.65 M/uL (4.7-6.1); White Blood Count 17.32 K/uL (4.8-10.8)
[2022-03-01 14:10] LABS: ALC (manual) 0.61 K/uL (1.2-3.4); ANC (manual) 11.45 K/uL (1.4-6.5); Lymphocytes # (manual) 0.61 K/uL (1.2-3.4); Lymphocytes % (manual) 3.5 %; Metamyelocytes % (manual) 5.2 %; Monocytes # (manual) 3.01 K/uL (0.11-0.59); Monocytes % (manual) 17.4 %; Myelocytes # (manual) 1.35 K/uL (0-0); Myelocytes % (manual) 7.8 %; Neutrophils # (manual) 11.45 K/uL (1.4-6.5); Neutrophils % (manual) 66.1 %; Rouleaux 1+
--- NOTE | 2022-03-01 16:03 | Emergency Department Note ---
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 However they report that he continues to have intractable pain and they are concerned that his pain is not controlled. They report that their oncology team is aware but they are unsure of why he is in so much pain. They deny any fevers, chills, new cough, nausea, vomiting, diarrhea. Patient's reports that he has been drinking less and is worried he is dehydrated. On arrival the patient is chronically ill-appearing but no distress, afebrile, HR 100s and otherwise stable vital signs. He has generalized weakness throughout without focal neurologic deficits. He has full range of motion of bilateral knees intact though causes pain. There is no warmth, discoloration or tenderness to bilateral knees. Chest x-ray demonstrates chronic interstitial lung disease is unchanged. Bibasilar opacities also seen and are similar to December 30, 2021. WBC 17.3K nonspecific. Increased from last week however similar to values in December. H/H 7.9/4.8, proximate to last week though declined from December. Chemistry without metabolic acidosis. Creatinine 1.5 within prior range of values in the setting of CKD. Magnesium 1.6 with repletion provided. AST and ALT 98 and 123, respectively slightly increased to approximate from prior values. High- sensitivity troponin mildly elevated at 32.5 without prior values for comparison nonspecific. Lipase not elevated. TSH within normal limits. Given the patient and 's report of intractable pain where he is unable to ambulate and they feel he is not doing well at home they did agree and prefer plan for admission. Case was discussed with Yonatan GILES with Dr. Asher, [facility] hospitalist, who will evaluate the patient for admission. Triage Nursing notes reviewed and agree them. Prior medical records reviewed Vital Signs: reviewed and remarkable for no significant abnormalities Differential diagnosis: Infection, dehydration, metabolic abnormality, hypo/hyperglycemia, electrolyte disturbance, anemia, hypoxia, cardiac sources, intracerebral event, toxicologic, neurologic, as well as other pathologies. ER treatment provided: See below. Diagnostics interpreted by me: ECG: Sinus tachycardia, 103 bpm, PVCs, no overt ST elevation or depression, QTC 424, QRS 94 Cardiac Monitoring: An order for continuous cardiac monitoring was placed and demonstrated Sinus tachycardia, 103 bpm, PVCs Laboratory studies: See below Imaging studies: See below Consultation(s): Yonatan GILES with Dr. Asher [facility] hospitalist. 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 However they report that he continues to have intractable pain and they are concerned that his pain is not controlled. They report that their oncology team is aware but they are unsure of why he is in so much pain. They deny any fevers, chills, new cough, nausea, vomiting, diarrhea. Patient's reports that he has been drinking less and is worried he is dehydrated. ROS: See above HPI for pertinent positives & negatives. A total of 10 systems reviewed and were otherwise negative. VITALS:See Below PHYSICAL EXAMINATION: GENERAL: Awake, alert, fatigued-appearing, in no distress HENT: Normocephalic, atraumatic. Oropharynx with dry mucous membranes and otherwise unremarkable. EYES: Normal conjunctiva. Sclera non-icteric. NECK: Supple. No nuchal rigidity. FROM. No JVD. RESPIRATORY: Clear to auscultation. CARDIAC: Regular rate, normal rhythm. Extremities warm and well perfused. Pulses equal. ABDOMEN: Soft, non-distended. No tenderness to palpation. No rebound or guarding. No masses. RECTAL: Deferred. MUSCULOSKELETAL: Chest examination reveals no tenderness. The back is symmetrical on inspection without obvious abnormality. There is no CVA tenderness to palpation. full range of motion of bilateral knees intact though causes pain. There is no warmth, discoloration or tenderness to bilateral knees. LOWER EXTREMITIES: Calves are equal size bilaterally and non-tender. Scant BLE edema. No discoloration. NEURO: No focal sensory or motor deficits noted. Generalized weakness without focal extremity weakness. SKIN: No rash or jaundice noted. Hao Alcazar MD Past Med/Surg History Medical History Acute blood loss anemia Acute GI bleeding Atrial fibrillation dx 2016 - follows w/ Dr. Trejo Congestive heart failure Deep vein thrombosis RLE - 2016 dx while hospitalized w/ pneumonia Duodenal ulcer Hearing deficit [facility] [place] Hematoma of left lower extremity Interstitial lung disease Osteoarthritis Pneumonia Pulmonary embolism 2016 - dx while hospitalized w/ pneumonia - on xarelto Surgical History History of appendectomy History of cardiac catheterization 2015 - [place] - no stents History of cardioversion 11/08/2016 History of carpal tunnel release of both wrists History of cataract surgery History of colonoscopy History of esophagogastroduodenoscopy (EGD) History of evacuation of hematoma LLE History of shoulder surgery Left 2004 History of tonsillectomy Presence of combination internal cardiac defibrillator (ICD) and pacemaker placed 2016 - medtronic - last checked 1 year ago - follows w/ dr. yeh Family History Mother Diabetes Grandfather (Paternal) No problems noted. Father Lymphoma Grandfather (Maternal) Myocardial infarction Other No family history of adverse response to anesthesia Denies family history of Ovarian cancer Prostate cancer Heart disease Breast cancer Colorectal cancer Social History Smoking Status: Former smoker Tobacco Type: Cigarettes Age Quit Using Tobacco: 53; Cigarettes Per Day: 1 pack a day; Second Hand Exposure: No; Hx Alcohol Use: No Hx Substance Use: No Preferred Language: Faroese Communication Ability: Effective Visual Impairment: Limited Hearing Ability: Use of Hearing Aid Spectral Scientist Required: No Beliefs That Will Affect Care: None marital status: Current Living Situation: Spouse current occupational status: retired 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 How many Children do You have: 0 Feels Safe at Home: Yes Childhood Exposure to Second-Hand Smoke: Yes (dad did ) caffeine: Yes (cup of coffee in morning ) Dental Care, Regularly: No Physical Activity Frequency: Does not Exercise Seatbelt Use: always Sunscreen Use: No (doesn't go out in sun ) Assistive Devices: None Allergies Allergies Allergy/AdvReac Type Severity Reaction Status Date / Time diphtheria toxoid,fluid Allergy Severe CONVULSIONS--HORSE Verified 03/01/22 15:11 SERUM BASE tetanus toxoid, adsorbed Allergy Severe CONVULSIONS--HORSE Verified 03/01/22 15:11 SERUM BASE Home Meds Home Medications Medication Instructions Recorded Confirmed atorvastatin 40 mg tablet 40 mg PO HS 10/29/19 03/01/22 cholecalciferol (vitamin D3) 25 2,000 unit PO QDL 11/20/19 03/01/22 mcg (1,000 unit) capsule (Vitamin D3) cyanocobalamin (vitamin B-12) 1,000 mcg PO QDL 11/20/19 03/01/22 1,000 mcg tablet (Vitamin B-12) folic acid 1 mg tablet 1 mg PO QDL 06/08/20 03/01/22 metoprolol succinate 50 mg 50 mg PO BID tab 01/04/21 03/01/22 tablet,extended release 24 hr cetirizine 10 mg tablet (Zyrtec) 5 mg PO QAM 08/16/21 03/01/22 pantoprazole 20 mg tablet,delayed 20 mg PO DAILYBB 09/21/21 03/01/22 release spironolactone 25 mg tablet 12.5 mg PO QAM 09/21/21 03/01/22 ondansetron HCl 8 mg tablet 8 mg PO Q8H PRN 02/21/22 03/01/22 oxycodone 5 mg tablet 5 mg PO Q12H PRN 02/21/22 03/01/22 prochlorperazine maleate 10 mg 10 mg PO Q6H PRN 02/21/22 03/01/22 tablet Previous Rx's Medication Instructions Recorded albuterol sulfate 90 mcg/actuation 2 inh INHALATION Q4H PRN #8.5 g 09/21/21 aerosol inhaler furosemide 40 mg tablet 40 mg PO QAM #0 tab 12/31/21 rivaroxaban 15 mg tablet (Xarelto) 15 mg PO HS #30 tab 12/31/21 Results & Data (ED) Vital Signs Vital Signs - 24 hr 03/01/22 12:49 03/01/22 12:55 03/01/22 13:30 Temperature 36.9 C Temperature Source Oral Pulse Rate 104 H 108 H Pulse Rate from SpO2 Sensor 95 H Pulse Rhythm Irregular Respiratory Rate 22 13 Respiratory Effort / Characteristics Non-Labored Spontaneous Respiratory Depth Normal Respiratory Pattern Regular Blood Pressure 129/80 Blood Pressure Mean 96 Pulse Oximetry 94 94 100 Oxygen Delivery Method Nasal Cannula Nasal Cannula Nasal Cannula Oxygen Flow Rate 3 3 3 Sepsis New/Unexplained Change in Mental Status No Sepsis Action Taken by Nursing Physician Notified 03/01/22 13:31 03/01/22 14:01 03/01/22 14:02 Temperature Temperature Source Pulse Rate 103 H Pulse Rate from SpO2 Sensor 98 H 91 H Pulse Rhythm Respiratory Rate 15 Respiratory Effort / Characteristics Respiratory Depth Respiratory Pattern Blood Pressure 101/66 101/63 Blood Pressure Mean 77 75 Pulse Oximetry 100 100 Oxygen Delivery Method Nasal Cannula Nasal Cannula Oxygen Flow Rate 3 3 Sepsis New/Unexplained Change in Mental Status Sepsis Action Taken by Nursing 03/01/22 14:30 03/01/22 15:00 03/01/22 15:30 Temperature Temperature Source Pulse Rate 93 H 124 H 98 H Pulse Rate from SpO2 Sensor 88 90 Pulse Rhythm Respiratory Rate 19 18 32 H Respiratory Effort / Characteristics Respiratory Depth Respiratory Pattern Blood Pressure 97/64 L 99/64 L 102/82 Blood Pressure Mean 75 75 88 Pulse Oximetry 100 Oxygen Delivery Method Nasal Cannula Nasal Cannula Oxygen Flow Rate 3 3 Sepsis New/Unexplained Change in Mental Status Sepsis Action Taken by Nursing Laboratory Data Attestation: I reviewed the patient's lab results. Result diagrams: 03/01/22 13:15 03/01/22 13:15 Lab Results 03/01/22 03/01/22 03/01/22 Range/Units 12:50 13:15 13:15 WBC 17.32 H (4.8-10.8) K/uL RBC 2.65 L (4.7-6.1) M/uL Hgb 7.9 L (14.0-18.0) g/dL Hct 24.8 L (42-52) % MCV 93.6 (80-100) fL MCH 29.8 (25-34) pg MCHC 31.9 L (32-36) g/dL RDW Std Deviation 56.8 H (36.4-46.3) fL RDW Coeff of Yogi 17.0 H (11.5-14.5) % Plt Count 598 H (130-400) K/uL MPV 10.4 (7.4-10.4) fL Absolute Nucleated RBC 0.12 H (0-0) K/uL Nucleated RBC % (auto) 0.7 % Neutrophils % (Manual) 66.1 % Lymphocytes % (Manual) 3.5 % Monocytes % (Manual) 17.4 % Metamyelocytes % (Man) 5.2 % Myelocytes % (Man) 7.8 % Neutrophils # (Manual) 11.45 H (1.4-6.5) K/uL Total Absolute Neuts 11.45 H (1.4-6.5) K/uL Lymphocytes # (Manual) 0.61 L (1.2-3.4) K/uL Total Abs Lymphocytes 0.61 L (1.2-3.4) K/uL Monocytes # (Manual) 3.01 H (0.11-0.59) K/uL Metamyelocytes # (Man) 0.90 H (0-0) K/uL Myelocytes # (Manual) 1.35 H (0-0) K/uL Rouleaux 1+ PT (9.0-12.0) Seconds INR (0.9-1.1) Sodium (136-145) mmol/L Potassium (3.5-5.1) mmol/L Chloride (98-107) mmol/L Carbon Dioxide (21-32) mmol/L Anion Gap (3-11) BUN (6-23) mg/dl Creatinine (0.6-1.4) mg/dl Est Cr Clr Drug Dosing ml/min Est GFR ( Amer) ml/min Est GFR (Non-Af Amer) ml/min BUN/Creatinine Ratio (10-20) Glucose (70-99(Fasting)) mg/dl Calcium (8.5-10.1) mg/dl Phosphorus (2.5-4.9) mg/dl Magnesium (1.7-2.4) mg/dl Total Bilirubin (0.2-1.0) mg/dl AST (13-39) U/L ALT (7-52) U/L Alkaline Phosphatase (34-104) U/L Total Creatine Kinase (30-223) U/L Troponin I High Sens 32.5 H (0-20) pg/ml Total Protein (6.0-8.3) gm/dl Albumin (3.4-5.0) gm/dl Globulin (2.5-4.0) gm/dl Albumin/Globulin Ratio (0.9-2) Lipase (11-82) U/L Procalcitonin 2.67 H (0-0.5) ng/ml TSH (0.300-4.500) uIu/ml Anaplasma Smear Lyme Disease IgG Ab (Negative) Lyme Disease IgM Ab (Negative) Blood Type Antibody Screen Crossmatch 03/01/22 03/01/22 03/01/22 Range/Units 13:15 13:15 13:15 WBC (4.8-10.8) K/uL RBC (4.7-6.1) M/uL Hgb (14.0-18.0) g/dL Hct (42-52) % MCV (80-100) fL MCH (25-34) pg MCHC (32-36) g/dL RDW Std Deviation (36.4-46.3) fL RDW Coeff of Yogi (11.5-14.5) % Plt Count (130-400) K/uL MPV (7.4-10.4) fL Absolute Nucleated RBC (0-0) K/uL Nucleated RBC % (auto) % Neutrophils % (Manual) % Lymphocytes % (Manual) % Monocytes % (Manual) % Metamyelocytes % (Man) % Myelocytes % (Man) % Neutrophils # (Manual) (1.4-6.5) K/uL Total Absolute Neuts (1.4-6.5) K/uL Lymphocytes # (Manual) (1.2-3.4) K/uL Total Abs Lymphocytes (1.2-3.4) K/uL Monocytes # (Manual) (0.11-0.59) K/uL Metamyelocytes # (Man) (0-0) K/uL Myelocytes # (Manual) (0-0) K/uL Rouleaux PT 14.5 H (9.0-12.0) Seconds INR 1.4 H (0.9-1.1) Sodium 131 L (136-145) mmol/L Potassium 4.4 (3.5-5.1) mmol/L Chloride 94 L (98-107) mmol/L Carbon Dioxide 30 (21-32) mmol/L Anion Gap 7 (3-11) BUN 36 H (6-23) mg/dl Creatinine 1.51 H (0.6-1.4) mg/dl Est Cr Clr Drug Dosing 55.7 ml/min Est GFR ( Amer) 52.4 ml/min Est GFR (Non-Af Amer) 45.2 ml/min BUN/Creatinine Ratio 23.8 H (10-20) Glucose 141 H (70-99(Fasting)) mg/dl Calcium 9.7 (8.5-10.1) mg/dl Phosphorus 4.0 (2.5-4.9) mg/dl Magnesium 1.6 L (1.7-2.4) mg/dl Total Bilirubin 1.0 (0.2-1.0) mg/dl AST 98 H (13-39) U/L ALT 123 H (7-52) U/L Alkaline Phosphatase 466 H (34-104) U/L Total Creatine Kinase 54 (30-223) U/L Troponin I High Sens (0-20) pg/ml Total Protein 7.6 (6.0-8.3) gm/dl Albumin 3.2 L (3.4-5.0) gm/dl Globulin 4.4 H (2.5-4.0) gm/dl Albumin/Globulin Ratio 0.7 L (0.9-2) Lipase 30 (11-82) U/L Procalcitonin (0-0.5) ng/ml TSH 2.206 (0.300-4.500) uIu/ml Anaplasma Smear Lyme Disease IgG Ab (Negative) Lyme Disease IgM Ab (Negative) Blood Type Antibody Screen Crossmatch 03/01/22 03/01/22 03/01/22 Range/Units 15:15 15:15 15:15 WBC (4.8-10.8) K/uL RBC (4.7-6.1) M/uL Hgb (14.0-18.0) g/dL Hct (42-52) % MCV (80-100) fL MCH (25-34) pg MCHC (32-36) g/dL RDW Std Deviation (36.4-46.3) fL RDW Coeff of Yogi (11.5-14.5) % Plt Count (130-400) K/uL MPV (7.4-10.4) fL Absolute Nucleated RBC (0-0) K/uL Nucleated RBC % (auto) % Neutrophils % (Manual) % Lymphocytes % (Manual) % Monocytes % (Manual) % Metamyelocytes % (Man) % Myelocytes % (Man) % Neutrophils # (Manual) (1.4-6.5) K/uL Total Absolute Neuts (1.4-6.5) K/uL Lymphocytes # (Manual) (1.2-3.4) K/uL Total Abs Lymphocytes (1.2-3.4) K/uL Monocytes # (Manual) (0.11-0.59) K/uL Metamyelocytes # (Man) (0-0) K/uL Myelocytes # (Manual) (0-0) K/uL Rouleaux PT (9.0-12.0) Seconds INR (0.9-1.1) Sodium (136-145) mmol/L Potassium (3.5-5.1) mmol/L Chloride (98-107) mmol/L Carbon Dioxide (21-32) mmol/L Anion Gap (3-11) BUN (6-23) mg/dl Creatinine (0.6-1.4) mg/dl Est Cr Clr Drug Dosing ml/min Est GFR ( Amer) ml/min Est GFR (Non-Af Amer) ml/min BUN/Creatinine Ratio (10-20) Glucose (70-99(Fasting)) mg/dl Calcium (8.5-10.1) mg/dl Phosphorus (2.5-4.9) mg/dl Magnesium (1.7-2.4) mg/dl Total Bilirubin (0.2-1.0) mg/dl AST (13-39) U/L ALT (7-52) U/L Alkaline Phosphatase (34-104) U/L Total Creatine Kinase (30-223) U/L Troponin I High Sens (0-20) pg/ml Total Protein (6.0-8.3) gm/dl Albumin (3.4-5.0) gm/dl Globulin (2.5-4.0) gm/dl Albumin/Globulin Ratio (0.9-2) Lipase (11-82) U/L Procalcitonin (0-0.5) ng/ml TSH (0.300-4.500) uIu/ml Anaplasma Smear See Comment Lyme Disease IgG Ab Negative (Negative) Lyme Disease IgM Ab Negative (Negative) Blood Type O Positive Antibody Screen NEGATIVE Crossmatch See Detail Administered Medications Atorvastatin Calcium (Atorvastatin 40 Mg Tab) 40 mg PO HS AMBER Stop: 03/31/22 20:59 Last Admin: 03/01/22 22:16 Dose: 40 mg Documented by: [id number] Metoprolol Succinate (Metoprolol Succ 50mg Ext Rel Tab) 50 mg PO BID AMBER Stop: 03/31/22 20:59 Last Admin: 03/01/22 22:17 Dose: Not Given Documented by: [id number] Discontinued Medications Azithromycin (Azithromycin 250 Mg Tab) 500 mg PO NOW ONE Stop: 03/01/22 18:14 Last Admin: 03/01/22 20:23 Dose: 500 mg Documented by: [id number] Acetaminophen (Ofirmev) 1,000 mg in 100 mls @ 400 mls/hr IV NOW STA Stop: 03/01/22 13:18 Last Infusion: 03/01/22 13:37 Dose: 0 mls/hr Documented by: [id number] Admin: 03/01/22 13:22 Dose: 400 mls/hr Documented by: [id number] Magnesium Sulfate/Dextrose (Magnesium Sulfate / D5w) 1 gm in 100 mls @ 50 mls/hr IV Q2H AMBER Stop: 03/01/22 21:59 Last Admin: 03/01/22 22:17 Dose: 50 mls/hr Documented by: [id number] Infusion: 03/01/22 21:54 Dose: 50 mls/hr Documented by: [id number] Admin: 03/01/22 19:54 Dose: 50 mls/hr Documented by: [id number] Infusion: 03/01/22 18:52 Dose: 50 mls/hr Documented by: [id number] Admin: 03/01/22 16:52 Dose: 50 mls/hr Documented by: [id number] Piperacillin Sod/Tazobactam (Sod 3.375 gm/ Dextrose) 115 mls @ 230 mls/hr IV NOW ONE; Protocol Stop: 03/01/22 18:42 Last Infusion: 03/01/22 20:31 Dose: 0 mls/hr Documented by: [id number] Admin: 03/01/22 19:45 Dose: 230 mls/hr Documented by: [id number] Morphine Sulfate (Morphine Sulfate 4 Mg/Ml 1 Ml Carp\Vial) 4 mg IV NOW STA Stop: 03/01/22 13:05 Last Admin: 03/01/22 13:22 Dose: 4 mg Documented by: [id number] Imaging Data Radiologist's Impression: Chest X-Ray 03/01/22 12:49 SINGLE VIEW CHEST CLINICAL HISTORY: Atypical chest pain. FINDINGS: An AP, portable, upright chest radiograph is compared to study dated 12/30/2021 and correlated with chest CT dated 11/20/2019. A 2-lead cardiac AICD is unchanged in position. The heart is enlarged noting atherosclerotic ca lcification of the thoracic aorta. Findings of chronic interstitial lung disease are again noted. Airspace opacities at both lung bases are similar to 12/30/2021 examination. No large pleural effusion or pneumothorax is seen. The skeletal structures are osteopenic. The bony thorax is grossly intact. Degenerative change is noted in the shoulders and thoracic spine. IMPRESSION: 1. Cardiomegaly and AICD with no radiographic evidence of congestive failure. 2. Findings of chronic interstitial lung disease are similar to previous. 3. Bibasilar airspace opacities are similar to the 12/30/2021 examination. This may be related to chronic lung disease. Correlate clinically for evidence of a superimposed infectious/inflammatory pneumonitis. ACT 112: Negative or not required by law. Electronically signed by: Be Domínguez M.D. 03/01/2022 1:41 PM Discharge Plan Visit Data Chief Complaint: Weakness ED Provider: Hao Alcazar Discharge Problem: Intractable pain, Leukocytosis, Generalized weakness, Hypomagnesemia, CKD (chronic kidney disease), Squamous cell carcinoma lung Patient Disposition: Admitted As Inpatient Discharge Instructions Interventions: ED Discharge Assessment Last Done: 03/01/22 18:23 Discharge Problem: Leukocytosis Qualifiers: Leukocytosis type: unspecified Qualified Code(s): D72.829 - Elevated white b lood cell count, unspecified CKD (chronic kidney disease) Qualifiers: Chronic kidney disease stage: unspecified stage Qualified Code(s): N18.9 - Chronic kidney disease, unspecified Squamous cell carcinoma lung Qualifiers: Laterality: unspecified laterality Qualified Code(s): C34.90 - Malignant neoplasm of unspecified part of unspecified bronchus or lung
[2022-03-01] MEDS ORDERED: SODIUM CHLORIDE 0.9% 250 ML IV PRN (16:05)
--- NOTE | 2022-03-01 16:05 | History & Physical Report ---
Date of Service March 01, 2022 Assessment & Plan (1) Sepsis: Plan: Overall ill appearing gentlemen, with with leukocytosis and evidence of multiple organ dysfunction. This is also in the setting of chemotherapy- which he last received in February 02. Currently meets SIRS criteria with elevated PCT. Will resuscitate with PRBC. Start patient on broad spectrum antibiotics with Zosyn and Azithromycin for possible pulmonary source at this time, continue to search for other causes. - If continues to worsen would need to consider further diagnostic with CT scan of chest or empiric treatment for PJP or fungal - Awaiting urine sample as well - blood culture pending - fungitell sent - follow with lactate and PCT in the morning - Anaplasmosis and Lyme IGG/IGM negative - Consider orthopaedics consultation for possible evaluation of effusion- however not red/warm- ?pseudogout - CT scan of abdomen and pelvis negative for acute process or bleeding (2) Elevated liver enzymes: Plan: Elevated AST/ALT/ ALK PO4 and elevated INR - -sepsis vs. hepatic congestion from HF in the setting of worsening function possibly from cheomotherapy induction - Normal bilirubin and without jaundice - CT scan without any evidence of pneumatosis gallbladder normal - Liver ultrasound with Doppler evaluate for hepatic thrombus (side effect of chemo) - Anaplasmosis negative via smear - Unsure of pathology at this time (3) Anemia: Plan: Chronically down trending HGB over past 2 months- does not endorse GI loss - No retroperitoneal bleed noted on CT abd/pelvis - Transfuse 1 unit PRBC to get > 8 - continue to support organ dysfunction - symptomatic with dyspnea and fatigue - CBC in morning - RBC 2.65, normocytic, normochromic - Noted thrombocytosis at 598 - Will currently hold Xarelto with his elevated INR and low HGB - would restart when ~ 1.2 or confident no acute blood loss (4) Squamous cell carcinoma: Plan: Bronchoscopy evaluation by trice for lymphnode biopsy and right middle lobe biopsy - reported as non cmall cell carcinoma and right middle lobe with squamous cell carcinoma - Started Chemotherapy with Gemcitabine and carboplatin (5) Acute bilateral knee pain: Plan: As above- consider orthopaedics consult to evalute effusion make-up - bilateral crepitus with knee flexion on medial and lateral aspect - Not red, not inflamed- ? pseudogout (6) Hypoxia: Plan: Secondary to anemia, CHF, ILD and possible source of infection - follow - diurese in am (7) NICM (nonischemic cardiomyopathy): Plan: Remains on diuretic therapy and Entresto- dose was reduced in December Previous ECHo 01/18- EF 40-45% - Follow his hemodynamics through PM- his Entresto is not on his med rec- but should be on 24-26mg 1 tab BID- if hemodynamically stable in am consider adding back - Continue with Lasix and Aldactone pending hemodynamics - diurese following PRBC (8) CKD (chronic kidney disease) stage 3, GFR 30-59 ml/min: Plan: YELENA II on CKD III- replenish intravascular volume with PRBC - Follow BUN and MANAGER DECISION SUPPORT- MANAGER DECISION SUPPORT baseline 1.3-2- currently 1.5 (9) Chronic systolic heart failure: Plan: As above reduced ejection fraction- it is possible that had decrease in cardiac function with current chemotherapy induction - follow organ perfusion as well as infectious biomarkers- - not overtly overloaded from peripheral standpoint (10) AAA (abdominal aortic aneurysm): Plan: stable- No change in a 3 cm infrarenal abdominal aortic aneurysm. 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 ILD flair ahd CHF exacerbation - remains whether NSIP or UIP - was to have PFTs completed in December- but does not look as this was completed History of Present Illness Primary Care Provider: Aiden Burroughs MD 71 YOM with medical history of: Recently diagnosed squamous cell carcinoma- started on Gemcitabine and [id number], NICM, 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 Patient comes to the EMD today for complaints of continued fatigue, bilateral knee and hip pain that has been ongoing since his chemotherapy induction started on 02/02/22. The patient has not received any further chemotherapy at this time secondary to his continued fatigue. The patient has been having a continuing downtrending of his hemoglobin since January and following induction chemo was down to 8.8. Today he is noted to be at 7.9. The patient also noted to have leukocytosis as well as acute elevation of his liver enzymes and INR up to 1.4 as well as elevated HScTNI. Family reports periods of rigors and chills at home that gotten worse over the past 3 days. Patient has poor recall of this. Also endorsing dark urine at home with one episode of hematuria reported last week, but has not had anymore. He endorses having a cat that is outside. He has only been outside to go to appointments- will also send anaplasmosis as well as lyme. For his knee pain, he was seen in the EMD on 02/21 and had imaging of his knees which did reveal soft tissue swelling and joint effusion. He has limited range of flexion with these secondary to pain. The joints are not red or warm. For his HGB levels the patient denies any change in stools or blood in the toilet or on the toilet paper, his stools have been formed and brown in color, denies any nausea or vomiting and is without epigastric pain with palpation or with eating. His WBC count on review from his oncologist office was with WBC of 10.35(02/23) today he is noted at 17.32 and 9 on 02/21. In the EMD the patient had routine labs drawn, CXR and ECG. His ECG did not show any ST segment changes. He was give morphine for his joint pain and the hospitalist service was consulted for admission. With his drop in HGB and INR of 1.[address] of the abdomen and Plavix to evaluate for bleeding. PCT returned at 2.2 will obtain blood cultures and start patient on Zosyn and Azithromycin for possible pulmonary source. Awaiting urine sample as well. As he is symptomatic with fatigue, dyspnea and elevation of his HScTNI as well as other organ dysfunction will type and cross and transfuse unit of PRBC. Continue to replete his Magnesium. Obtain Doppler of his liver as well with elevation of his LFTs rule out thrombus(side effect of Gemcitabine). Will await his culture results. Will Hold his Xarelto until INR ~1.2 and no evidence of bleeding. Overall has been doing poor since his induction chemo and now with multiple lab derangements and evidence of infection with organ dysfunction. Admit to medical telemetry and follow progression, and cardiac function in light of Gemcitabine and Carboplatin therapy. Patient gets his oncological care at [facility], follows with pulmonary at [facility], Cardiology at [facility]. Allergies Allergy/AdvReac Type Severity Reaction Status Date / Time diphtheria toxoid,fluid Allergy Severe CONVULSIONS--HORSE Verified 03/01/22 15:11 SERUM BASE tetanus toxoid, adsorbed Allergy Severe CONVULSIONS--HORSE Verified 03/01/22 15:11 SERUM BASE Home Medications Medication Instructions Recorded Confirmed Type atorvastatin 40 mg tablet 40 mg PO HS 10/29/19 03/01/22 History cholecalciferol (vitamin D3) 25 2,000 unit PO QDL 11/20/19 03/01/22 History mcg (1,000 unit) capsule (Vitamin D3) cyanocobalamin (vitamin B-12) 1,000 mcg PO QDL 11/20/19 03/01/22 History 1,000 mcg tablet (Vitamin B-12) folic acid 1 mg tablet 1 mg PO QDL 06/08/20 03/01/22 History metoprolol succinate 50 mg 50 mg PO BID tab 01/04/21 03/01/22 History tablet,extended release 24 hr cetirizine 10 mg tablet (Zyrtec) 5 mg PO QAM 08/16/21 03/01/22 History albuterol sulfate 90 mcg/actuation 2 inh INHALATION Q4H PRN #8.5 g 09/21/21 03/01/22 Rx aerosol inhaler pantoprazole 20 mg tablet,delayed 20 mg PO DAILYBB 09/21/21 03/01/22 History release spironolactone 25 mg tablet 12.5 mg PO QAM 09/21/21 03/01/22 History furosemide 40 mg tablet 40 mg PO QAM #0 tab 12/31/21 03/01/22 Rx rivaroxaban 15 mg tablet (Xarelto) 15 mg PO HS #30 tab 12/31/21 03/01/22 Rx ondansetron HCl 8 mg tablet 8 mg PO Q8H PRN 02/21/22 03/01/22 History oxycodone 5 mg tablet 5 mg PO Q12H PRN 02/21/22 03/01/22 History prochlorperazine maleate 10 mg 10 mg PO Q6H PRN 02/21/22 03/01/22 History tablet prednisone 20 mg tablet 40 mg PO DAILY #15 tab 03/05/22 Rx Past Med/Surg History Medical History Acute blood loss anemia Acute GI bleeding Atrial fibrillation dx 2016 - follows w/ Dr. Trejo Congestive heart failure Deep vein thrombosis RLE - 2016 dx while hospitalized w/ pneumonia Duodenal ulcer Hearing deficit [facility] Hematoma of left lower extremity Interstitial lung disease Osteoarthritis Pneumonia Pulmonary embolism 2016 - dx while hospitalized w/ pneumonia - on xarelto Surgical History History of appendectomy History of cardiac catheterization 2016 - [place] - no stents History of cardioversion 11/08/2016 History of carpal tunnel release of both wrists History of cataract surgery History of colonoscopy History of esophagogastroduodenoscopy (EGD) History of evacuation of hematoma LLE History of shoulder surgery Left 2005 History of tonsillectomy Presence of combination internal cardiac defibrillator (ICD) and pacemaker placed 2017 - [place] - last checked 1 year ago - follows w/ dr. yeh Family History Mother Diabetes Grandfather (Paternal) No problems noted. Father Lymphoma Grandfather (Maternal) Myocardial infarction Other No family history of adverse response to anesthesia Denies family history of Ovarian cancer Prostate cancer Heart disease Breast cancer Colorectal cancer Social History Smoking Status: Former smoker Tobacco Type: Cigarettes Age Quit Using Tobacco: 53; Cigarettes Per Day: 1 pack a day; Second Hand Exposure: No; Hx Alcohol Use: No Hx Substance Use: No Preferred Language: [place]orese Communication Ability: Effective Visual Impairment: Limited Hearing Ability: Use of Hearing Aid Tomato Grader Required: No Beliefs That Will Affect Care: None marital status: Current Living Situation: Spouse current occupational status: retired 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 How many Children do You have: 0 Feels Safe at Home: Yes Childhood Exposure to Second-Hand Smoke: Yes (dad did ) caffeine: Yes (cup of coffee in morning ) Dental Care, Regularly: No Physical Activity Frequency: Does not Exercise Seatbelt Use: always Sunscreen Use: No (doesn't go out in sun ) Assistive Devices: Cane, Oxygen - at Night and Wheelchair Review of Systems Review of Systems: REVIEW OF SYSTEMS: Constitutional: (+) fever, sweats or chills Eyes: No diplopia, no worsening or blurred vision ENT: normal hearing, no trouble swallowing Respiratory: No cough, sputum, dyspnea at rest or on exertion Cardiovascular: No chest pain, tightness or palpitations Abdomen: No pain, nausea, vomiting, diarrhea or constipation Musculoskeletal: (+) knee and hip joint pain, left leg calf swelling (reports chronic) Neurologic: (+) decrease in ambulation secondary to joint pain, weakness, NO numbness/tingling, or balance problems Psychiatric: No anxiety or depression Skin: No rash or itch Physical Exam Physical Exam: PHYSICAL EXAM: General: awake, alert, pale and fatigued appearing Head: Normocephalic, atraumatic ENT: PERRLA, EOMI, no pharyngeal exudate, mucous membranes dry Neuro: AAO x 3, speech clear and appropriate, strength intact bilaterally 5/5, sensation intact and equal all extremities and dermatomes, no pronator drift Chest: equal rise and fall of the chest, no accessory muscle use, no heaves or thrills, scattered crackles throughout bilateral lung prater Cardiac: Regular rate and rhythm, telemetry reviewed, skin warm dry, cap refill <3 seconds, peripheral pulses +2 no JVD, no murmur, + 2 edema to bilateral lower extremity feet and mid woods GI: NABS x 4 quadrants, soft, nontender to palpation, no rebound, guarding or tenderness : Spontaneously voiding, no pain, no CVA tenderness, Extremities: Normal inspection, no peripheral edema or erythema, calfs nontender to palpation Psych: Normal mood and affect Skin: no rash or erythema, not jaundiced Results & Data Results & Data ([facility]) Vital Signs (Past 12 Hours) Vital Signs Temp Pulse Resp BP Pulse Ox 03/01/22 15:00 124 H 18 99/64 L 03/01/22 14:30 93 H 19 97/64 L 100 03/01/22 14:02 100 03/01/22 14:01 101/63 03/01/22 13:31 103 H 15 101/66 100 03/01/22 13:30 108 H 13 100 03/01/22 12:55 94 03/01/22 12:49 36.9 C 104 H 22 129/80 94 Laboratory Results Abnormal lab results 03/01/22 03/01/22 03/01/22 Range/Units 12:50 13:15 13:15 WBC 17.32 H (4.8-10.8) K/uL RBC 2.65 L (4.7-6.1) M/uL Hgb 7.9 L (14.0-18.0) g/dL Hct 24.8 L (42-52) % MCHC 31.9 L (32-36) g/dL RDW Std Deviation 56.8 H (36.4-46.3) fL RDW Coeff of Yogi 17.0 H (11.5-14.5) % Plt Count 598 H (130-400) K/uL Absolute Nucleated RBC 0.12 H (0-0) K/uL Neutrophils # (Manual) 11.45 H (1.4-6.5) K/uL Total Absolute Neuts 11.45 H (1.4-6.5) K/uL Lymphocytes # (Manual) 0.61 L (1.2-3.4) K/uL Total Abs Lymphocytes 0.61 L (1.2-3.4) K/uL Monocytes # (Manual) 3.01 H (0.11-0.59) K/uL Metamyelocytes # (Man) 0.90 H (0-0) K/uL Myelocytes # (Manual) 1.35 H (0-0) K/uL PT (9.0-12.0) Seconds INR (0.9-1.1) Sodium (136-145) mmol/L Chloride (98-107) mmol/L BUN (6-23) mg/dl Creatinine (0.6-1.4) mg/dl BUN/Creatinine Ratio (10-20) Glucose (70-99(Fasting)) mg/dl Magnesium (1.7-2.4) mg/dl AST (13-39) U/L ALT (7-52) U/L Alkaline Phosphatase (34-104) U/L Troponin I High Sens 32.5 H (0-20) pg/ml Albumin (3.4-5.0) gm/dl Globulin (2.5-4.0) gm/dl Albumin/Globulin Ratio (0.9-2) Procalcitonin 2.67 H (0-0.5) ng/ml Crossmatch 03/01/22 03/01/22 03/01/22 Range/Units 13:15 13:15 15:15 WBC (4.8-10.8) K/uL RBC (4.7-6.1) M/uL Hgb (14.0-18.0) g/dL Hct (42-52) % MCHC (32-36) g/dL RDW Std Deviation (36.4-46.3) fL RDW Coeff of Yogi (11.5-14.5) % Plt Count (130-400) K/uL Absolute Nucleated RBC (0-0) K/uL Neutrophils # (Manual) (1.4-6.5) K/uL Total Absolute Neuts (1.4-6.5) K/uL Lymphocytes # (Manual) (1.2-3.4) K/uL Total Abs Lymphocytes (1.2-3.4) K/uL Monocytes # (Manual) (0.11-0.59) K/uL Metamyelocytes # (Man) (0-0) K/uL Myelocytes # (Manual) (0-0) K/uL PT 14.5 H (9.0-12.0) Seconds INR 1.4 H (0.9-1.1) Sodium 131 L (136-145) mmol/L Chloride 94 L (98-107) mmol/L BUN 36 H (6-23) mg/dl Creatinine 1.51 H (0.6-1.4) mg/dl BUN/Creatinine Ratio 23.8 H (10-20) Glucose 141 H (70-99(Fasting)) mg/dl Magnesium 1.6 L (1.7-2.4) mg/dl AST 98 H (13-39) U/L ALT 123 H (7-52) U/L Alkaline Phosphatase 466 H (34-104) U/L Troponin I High Sens (0-20) pg/ml Albumin 3.2 L (3.4-5.0) gm/dl Globulin 4.4 H (2.5-4.0) gm/dl Albumin/Globulin Ratio 0.7 L (0.9-2) Procalcitonin (0-0.5) ng/ml Crossmatch See Detail Diagnostic Findings Chest X-Ray 03/01/22 12:49 SINGLE VIEW CHEST CLINICAL HISTORY: Atypical chest pain. FINDINGS: An AP, portable, upright chest radiograph is compared to study dated 12/30/2021 and correlated with chest CT dated 11/20/2019. A 2-lead cardiac AICD is unchanged in position. The heart is enlarged noting atherosclerotic calcification of the thoracic aorta. Findings of chronic interstitial lung disease are again noted. Airspace opacities at both lung bases are similar to 12/30/2021 examination. No large pleural effusion or pneumothorax is seen. The skeletal structures are osteopenic. The bony thorax is grossly intact. Degenerative change is noted in the shoulders and thoracic spine. IMPRESSION: 1. Cardiomegaly and AICD with no radiographic evidence of congestive failure. 2. Findings of chronic interstitial lung disease are similar to previous. 3. Bibasilar airspace opacities are similar to the 12/30/2021 examination. This may be related to chronic lung disease. Correlate clinically for evidence of a superimposed infectious/inflammatory pneumonitis. ACT 112: Negative or not required by law. Electronically signed by: Be Domínguez M.D. 03/01/2022 1:41 PM Abdomen/Pelvis CT 03/01/22 16:03 CT OF THE ABDOMEN AND PELVIS WITHOUT CONTRAST CLINICAL HISTORY: Evaluate for bleeding. COMPARISON STUDY: CT of the abdomen and pelvis November 20, 2019. TECHNIQUE: Axial images of the abdomen and pelvis were obtained without IV contrast. Images were reviewed in the axial, sagittal, and coronal planes. Automated exposure control was utilized for the study. A dose lowering technique was utilized adhering to the principles of ALARA. FINDINGS: There is mild dilatation of visualized portions of the ascending aorta, measuring 4.2 cm at the level of the main pulmonary artery. Pacer leads are partially imaged. There is cardiomegaly. Bilateral gynecomastia is noted. There may be a trace left pleural effusion. Lung bases are suboptimally assessed due to respiratory motion. Fibrotic change is noted. This has likely progressed since exam of November 20, 2019. Mild superimposed groundglass opacity may be present. No pneumatosis, free air or portal venous gas is present. Evaluation of the abdomen and pelvis is suboptimal on this unenhanced exam. A few calcified granulomas within the liver and spleen are present. There is no biliary or pancreatic ductal dilatation. No peripancreatic or pericholecystic stranding is present. Water attenuation lesion within the upper pole of the right kidney has decreased in size. This favors a cyst. There is no hydronephrosis. Centimeter infrarenal abdominal aortic aneurysm is similar to CT of November 20, 2019. No retroperitoneal hematoma is present. There is no hemoperitoneum. Bladder is mildly distended. There is no evidence for a bowel obstruction. Moderate amount stool within the rectum is present. No abdominal or pelvic lymphadenopathy is present. No acute fracture or suspicious lesion within the visualized skeletal structures. IMPRESSION: 1. No retroperitoneal hematoma. No hemoperitoneum. 2. No acute process within the abdomen or pelvis on unenhanced exam. 3. Suspected progression of fibrotic change within the lung bases. Possible superimposed groundglass opacities. 4. No bowel obstruction. 5. No change in a 3 cm infrarenal abdominal aortic aneurysm. ACT 112: Negative or not required by law. Electronically signed by: Ramiro Ponce M.D. 03/01/2022 4:30 PM Medications Administered Home Medications atorvastatin 40 mg tablet 40 mg PO HS 10/29/19 [History Confirmed 03/01/22] cholecalciferol (vitamin D3) 25 mcg (1,000 unit) capsule (Vitamin D3) 2,000 unit PO QDL 11/20/19 [History Confirmed 03/01/22] cyanocobalamin (vitamin B-12) 1,000 mcg tablet (Vitamin B-12) 1,000 mcg PO QDL 11/20/19 [History Confirmed 03/01/22] folic acid 1 mg tablet 1 mg PO QDL 06/08/20 [History Confirmed 03/01/22] metoprolol succinate 50 mg tablet,extended release 24 hr 50 mg PO BID tab 01/04/21 [History Confirmed 03/01/22] cetirizine 10 mg tablet (Zyrtec) 5 mg PO QAM 08/16/21 [History Confirmed 03/01/22] albuterol sulfate 90 mcg/actuation aerosol inhaler 2 inh INHALATION Q4H PRN #8.5 g 09/21/21 [Rx Confirmed 03/01/22] pantoprazole 20 mg tablet,delayed release 20 mg PO DAILYBB 09/21/21 [History Confirmed 03/01/22] spironolactone 25 mg tablet 12.5 mg PO QAM 09/21/21 [History Confirmed 03/01/22] furosemide 40 mg tablet 40 mg PO QAM #0 tab 12/31/21 [Rx Confirmed 03/01/22] rivaroxaban 15 mg tablet (Xarelto) 15 mg PO HS #30 tab 12/31/21 [Rx Confirmed 03/01/22] ondansetron HCl 8 mg tablet 8 mg PO Q8H PRN 02/21/22 [History Confirmed 03/01/22] oxycodone 5 mg tablet 5 mg PO Q12H PRN 02/21/22 [History Confirmed 03/01/22] prochlorperazine maleate 10 mg tablet 10 mg PO Q6H PRN 02/21/22 [History Confirmed 03/01/22] Active Medications Azithromycin (Azithromycin 250 Mg Tab) 250 mg PO QAM AMBER Stop: 03/09/22 08:59 Magnesium Sulfate/Dextrose (Magnesium Sulfate / D5w) 1 gm in 100 mls @ 50 mls/hr IV Q2H AMBER Stop: 03/01/22 21:59 Last Admin: 03/01/22 16:52 Dose: 50 mls/hr Documented by: Sodium Chloride (Nss) 250 mls @ 15 mls/hr IV .[id number] PRN PRN Reason: For Transfusion Stop: 03/31/22 16:04 Piperacillin Sod/Tazobactam (Sod 3.375 gm/ Dextrose) 115 mls @ 28.75 mls/hr IV Q8H AMBER; Protocol Stop: 03/09/22 00:00 Miscellaneous Information (Piperacill/Tazobac Consult Active) 1 ea N/A UD PRN PRN Reason: Consult Stop: 03/31/22 18:12 Magnesium Sulfate/Dextrose (Magnesium Sulfate / D5w) 1 gm in 100 mls @ 50 mls/hr IV Q2H AMBER Stop: 03/01/22 21:59 Last Admin: 03/01/22 16:52 Dose: 50 mls/hr Documented by: [id number] Discontinued Medications Acetaminophen (Ofirmev) 1,000 mg in 100 mls @ 400 mls/hr IV NOW STA Stop: 03/01/22 13:18 Last Infusion: 03/01/22 13:37 Dose: 0 mls/hr Documented by: [id number] Admin: 03/01/22 13:22 Dose: 400 mls/hr Documented by: [id number] Morphine Sulfate (Morphine Sulfate 4 Mg/Ml 1 Ml Carp\Vial) 4 mg IV NOW STA Stop: 03/01/22 13:05 Last Admin: 03/01/22 13:22 Dose: 4 mg Documented by: [id number] ECG Additional Comments: Sinus tachycardia with occasional ventricular-paced complexes and with occasional Premature ventricular complexes Low voltage QRS Inferior infarct , age undetermined Abnormal ECG When compared with ECG of 21-FEB-2022 18:12, Electronic ventricular pacemaker has replaced Electronic atrial pacemaker Code Status & VTE Plan Code Status CODE: FULL VTE: SCDS, Xarelto when able VTE Prophylaxis Plan VTE Prophylaxis will be ordered: Yes Supervising Physician Co-Signing Physician Notes Attending addendum: I have physically seen this patient, have supervised the OWEN's activities, and agree with the H&P unless as otherwise noted. Assessment and Plan: Sepsis-/multiorgan dysfunction- Chemotherapy most recently February 02 Zosyn 4.5 g IV every 8 hours Azithromycin 500 mg IV daily Follow urine cultures, blood cultures and sensitivities Elevated liver enzymes- CT abdomen pelvis negative Anaplasmosis screen negative Ordering mesenteric Doppler to assess for liver dysfunction, gallbladder is dy sfunction and venous thrombosis Remaining orders and notations as noted PG Care Time/CCT Total # of Minutes Spent Total Time Spent with Patient: Total time spent is greater than 50% in coordination of care (as documented) at patient's floor/unit and/or counseling patient: Coding Level of Care Code 80334 Initial Inpt Care Lvl 3 Diagnoses Anemia D64.9 Acute bilateral knee pain M25.561; M25.562 Hypoxia R09.02 NICM (nonischemic cardiomyopathy) I42.8 CKD (chronic kidney disease) stage 3, GFR 30-59 ml/min N18.3 Chronic systolic heart failure I50.22 AAA (abdominal aortic aneurysm) I71.4 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
--- NOTE | 2022-03-01 16:33 | CT Scan Report ---
CT OF THE ABDOMEN AND PELVIS WITHOUT CONTRAST CLINICAL HISTORY: Evaluate for bleeding. COMPARISON STUDY: CT of the abdomen and pelvis November 20, 2019. TECHNIQUE: Axial images of the abdomen and pelvis were obtained without IV contrast. Images were revi ewed in the axial, sagittal, and coronal planes. Automated exposure control was utilized for the saad dy. A dose lowering technique was utilized adhering to the principles of ALARA. FINDINGS: There is mild dilatation of visualized portions of the ascending aorta, measuring 4.2 cm at the level of the main pulmonary artery. Pacer leads are partially imaged. There is cardiomegaly. Juan J ateral gynecomastia is noted. There may be a trace left pleural effusion. Lung bases are suboptimally assessed due to respiratory motion. Fibrotic change is noted. This has likely progressed since exam of November 20, 2019. Mild superimposed groundglass opacity may be present. No pneumatosis, free air or portal venous gas is present. Evaluation of the abdomen and pelvis is sub optimal on this unenhanced exam. A few calcified granulomas within the liver and spleen are present. There is no biliary or pancreatic ductal dilatation. No peripancreatic or pericholecystic stranding i s present. Water attenuation lesion within the upper pole of the right kidney has decreased in size. This favors a cyst. There is no hydronephrosis. Centimeter infrarenal abdominal aortic aneurysm is si milar to CT of November 20, 2019. No retroperitoneal hematoma is present. There is no hemoperitoneum. Bladder is mildly distended. There is no evidence for a bowel obstruction. Moderate amount stool with in the rectum is present. No abdominal or pelvic lymphadenopathy is present. No acute fracture or cha picious lesion within the visualized skeletal structures. IMPRESSION: 1. No retroperitoneal hematoma. No hemoperitoneum. 2. No acute process within the abdomen or pelvis on unenhanced exam. 3. Suspected progression of fibrotic change within the lung bases. Possible superimposed groundglass opacities. 4. No bowel obstruction. 5. No change in a 3 cm infrarenal abdominal aortic aneurysm. ACT 112: Negative or not required by law. Electronically signed by: Ramiro Ponce M.D. 03/01/2022 4:30 PM
[2022-03-01 16:47] LABS: Lyme Ab IgG w/WB Rflx Negative (Negative); Lyme Ab IgM w/WB Rflx Negative (Negative)
[2022-03-01] MEDS: MAGNESIUM SULFATE / D5W 1 GM/100 ML BAG IV SCH ×3 (16:52→22:17)
[2022-03-01] MEDS ORDERED: PIPERACILL/TAZOBAC CONSULT ACTIVE PRN (18:13)
[2022-03-01] MEDS ORDERED: AZITHROMYCIN 250 MG TAB PO ONE (18:13)
[2022-03-01] MEDS ORDERED: PIPERACILLIN/TAZOBACTAM 3.375 GM in DEXTROSE 5% 100 ML IV ONE (18:13)
[2022-03-01] MEDS ORDERED: CARBOHYDRATES FOR HYPOGLYCEMIA PO PRN (19:34)
[2022-03-01] MEDS ORDERED: GLUCOSE 10 TAB/TUBE PO PRN (19:34)
[2022-03-01] MEDS ORDERED: DEXTROSE 50% 50 ML SYRINGE IV PRN (19:34)
[2022-03-01] MEDS ORDERED: POLYETHYLENE (MIRALAX) 17 GM PACK PO PRN (19:34)
[2022-03-01] MEDS ORDERED: GLUCOSE 40% GEL 15 GM TUBE PO PRN (19:34)
[2022-03-01] MEDS ORDERED: GLUCAGON FOR INJ 1 MG VIAL SQ PRN (19:34)
[2022-03-01] MEDS ORDERED: ALBUTEROL HFA 8 GM INHALER INH PRN (19:34)
[2022-03-01] MEDS ORDERED: ONDANSETRON 8MG OD TAB SL PRN (20:01)
[2022-03-01] MEDS ORDERED: FUROSEMIDE INJ 20 MG/2 ML VIAL IV ONE (20:27)
[2022-03-01] MEDS: ATORVASTATIN 40 MG TAB PO SCH (22:16)
[2022-03-01] MEDS: METOPROLOL SUCC 50MG EXT REL TAB PO SCH (22:17)
[2022-03-02] MEDS: PIPERACILLIN/TAZOBACTAM 3.375 GM in DEXTROSE 5% 100 ML IV SCH ×4 (00:26→23:57)
[2022-03-02 01:08] LABS: Hematocrit (blood only) 26.9 % (42-52); Hemoglobin 8.6 g/dL (14.0-18.0)
[2022-03-02] MEDS: PANTOprazole 40 MG TAB PO SCH (05:34)
[2022-03-02 06:34] LABS: Appearance Urine Clear (Clear); Bacteria Urine Automated Negative (Negative); Bilirubin Urine Negative (Negative); Blood Urine Negative (Negative); Color Urine Yellow; Glucose Urine UA Negative (Negative); Ketones Urine Negative (Negative); Leukocyte Esterase Urine Negative (Negative); Nitrite Urine Negative (Negative); Protein Urine Trace (Negative); RBC Urine Automated 0-4 /hpf (0-4); Specific Gravity Urine 1.018 (1.000-1.030); Urobilinogen Urine Negative (Negative)
[2022-03-02 07:07] LABS: Hematocrit (blood only) 26.2 % (42-52); Hemoglobin 8.4 g/dL (14.0-18.0); Mean Corpuscular Hemoglobin 29.8 pg (25-34); Mean Corpuscular Hgb Conc 32.1 g/dL (32-36); Mean Corpuscular Volume 92.9 fL (80-100); Mean Platelet Volume 10.4 fL (7.4-10.4); Nucleated RBC # (auto) 0.07 K/uL (0-0); Nucleated RBC % (auto) 0.4 %; Platelet Count 570 K/uL (130-400); RDW Standard Deviation 56.1 fL (36.4-46.3); Red Blood Count 2.82 M/uL (4.7-6.1); White Blood Count 16.09 K/uL (4.8-10.8)
[2022-03-02 07:21] LABS: INR 1.2 (0.9-1.1); Prothrombin Time 12.8 Seconds (9.0-12.0)
[2022-03-02 07:22] LABS: BUN Creatinine Ratio 24.2 (10-20); Calcium 9.5 mg/dl (8.5-10.1); Creatinine Clr Calc Pharmacy 54.9 ml/min; Est GFR (African American) 51.5 ml/min; Est GFR (Non-African American) 44.5 ml/min; Magnesium 2.1 mg/dl (1.7-2.4); Potassium 4.5 mmol/L (3.5-5.1)
[2022-03-02 07:25] LABS: Troponin I High Sensitivity 27.8 pg/ml (0-20)
[2022-03-02 07:44] LABS: ALC (manual) 0.55 K/uL (1.2-3.4); ANC (manual) 12.63 K/uL (1.4-6.5); Basophils # (manual) 0.14 K/uL (0-0.2); Basophils % (manual) 0.9 %; Lymphocytes # (manual) 0.55 K/uL (1.2-3.4); Lymphocytes % (manual) 3.4 %; Monocytes # (manual) 2.08 K/uL (0.11-0.59); Monocytes % (manual) 12.9 %; Myelocytes # (manual) 0.69 K/uL (0-0); Myelocytes % (manual) 4.3 %; Neutrophils # (manual) 12.63 K/uL (1.4-6.5); Neutrophils % (manual) 78.5 %; Polychromasia 1+
[2022-03-02] MEDS: CETIRIZINE HCL 10 MG TABLET PO SCH (08:33)
[2022-03-02] MEDS: CYANOCOBALAMIN (B-12) 500 MCG TABLET PO SCH (08:33)
[2022-03-02] MEDS: DOCUSATE SODIUM/SENNA 50/8.6MG TAB PO SCH (08:34)
[2022-03-02] MEDS: METOPROLOL SUCC 50MG EXT REL TAB PO SCH ×2 (08:34→20:03)
[2022-03-02] MEDS: FOLIC ACID 1 MG TAB PO SCH (08:34)
[2022-03-02] MEDS: FUROSEMIDE 40 MG TAB PO SCH (08:34)
[2022-03-02] MEDS: SPIRONOLACTONE 12.5 MG TAB PO SCH (08:34)
[2022-03-02] MEDS: AZITHROMYCIN 250 MG TAB PO SCH (08:35)
--- NOTE | 2022-03-02 08:37 | Ultrasound Report ---
US duplex portal hepatic veins HISTORY: 71 years-old Male evalaute for clot in liver acute right upper quadrant abdominal pain COMPARISON: CT abdomen and pelvis 03/01/2022 TECHNIQUE: Multiple real-time sonographic images of the hepatic vasculature were obtained assessing g rayscale appearance, color and spectral flow FINDINGS: Patent portal and hepatic veins with hepatopedal flow within the portal vein. Hepatic artery appears patent. IMPRESSION: Unremarkable exam. ACT 112: Negative or not required by law. The above report was generated using voice recognition software. It may contain grammatical, syntax o r spelling errors. Electronically signed by: Rogelio Sapp M.D. 03/02/2022 8:35 AM
--- NOTE | 2022-03-02 13:03 | Hospitalist Progress Note ---
Date of Service March 02, 2022 Assessment & Plan (1) Sepsis: Plan: Overall ill appearing gentlemen, with with leukocytosis and evidence of multiple organ dysfunction. This is also in the setting of chemotherapy- which he last received in February 02. Currently meets SIRS criteria with elevated PCT. Will resuscitate with PRBC. Start patient on broad spectrum antibiotics with Zosyn and Azithromycin for possible pulmonary source at this time, continue to search for other causes. - If continues to worsen would need to consider further diagnostic with CT scan of chest or empiric treatment for PJP or fungal - Awaiting urine sample as well - blood culture pending - fungitell sent - follow with lactate and PCT in the morning - Anaplasmosis and Lyme IGG/IGM negative - Consider orthopaedics consultation for possible evaluation of effusion- however not red/warm- ?pseudogout - CT scan of abdomen and pelvis negative for acute process or bleeding -> At this time, he feels much better, but I still don't know where is infection is from. All his labs point toward a bacterial source of infection, but I have no focus. His knees look and feel well today. He reports some slight, right hip pain, but CT a/p did not show any joint issues. At this time, will continue current plan and follow cultures x 24 more hours. Perhaps at that point, will move toward oral abx for a short course and close clinical follow-up. (2) Elevated liver enzymes: Plan: Elevated AST/ALT/ ALK PO4 and elevated INR - -sepsis vs. hepatic congestion from HF in the setting of worsening function possibly from cheomotherapy induction - Normal bilirubin and without jaundice - CT scan without any evidence of pneumatosis gallbladder normal - Liver ultrasound with Doppler evaluate for hepatic thrombus (side effect of chemo) - Negative. - Anaplasmosis negative via smear - Unsure of pathology at this time (3) Anemia: Plan: Chronically down trending HGB over past 2 months- does not endorse GI loss - No retroperitoneal bleed noted on CT abd/pelvis - Transfuse 1 unit PRBC to get > 8 - continue to support organ dysfunction - symptomatic with dyspnea and fatigue - CBC in morning - RBC 2.65, normocytic, normochromic - Noted thrombocytosis at 598 - Will currently hold Xarelto with his elevated INR and low HGB - would restart when ~ 1.2 or confident no acute blood loss -> Hgb partially responded to transfusion. Hgb is 8.4. (4) Squamous cell carcinoma: Plan: Bronchoscopy evaluation by [facility] for lymph node biopsy and right middle lobe biopsy - reported as non-small cell carcinoma and right middle lobe with squamous cell carcinoma - Started chemotherapy with Gemcitabine and carboplatin (5) Acute bilateral knee pain: Plan: As above- consider orthopaedics consult to evalute effusion make-up - bilateral crepitus with knee flexion on medial and lateral aspect - Not red, not inflamed- ? pseudogout -> Today, I do not see effusion. They are not warm or erythematous. Low concern for infection. (6) Hypoxia: Plan: Secondary to anemia, CHF, ILD and possible source of infection - follow - diurese in am (7) NICM (nonischemic cardiomyopathy): Plan: Remains on diuretic therapy and Entresto- dose was reduced in December Previous ECHo 01/18- EF 40-45% - Follow his hemodynamics through PM- his Entresto is not on his med rec- but should be on 24-26mg 1 tab BID- if hemodynamically stable in am consider adding back - Continue with Lasix and Aldactone pending hemodynamics - diurese following PRBC (8) CKD (chronic kidney disease) stage 3, GFR 30-59 ml/min: Plan: YELENA II on CKD III- replenish intravascular volume with PRBC - 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 (9) Chronic systolic heart failure: Plan: As above reduced ejection fraction- it is possible that had decrease in cardiac function with current chemotherapy induction - follow organ perfusion as well as infectious biomarkers- - not overtly overloaded from peripheral standpoint (10) AAA (abdominal aortic aneurysm): Plan: stable- No change in a 3 cm infrarenal abdominal aortic aneurysm. 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 ILD flair ahd CHF exacerbation - remains whether NSIP or UIP - was to have PFTs completed in December- but does not look as this was completed Admission and Anticipated Discharge Date Admission Date: March 01, 2022 Subjective Feels well today. Reports his breathing is "great" and denies any shortness of breath or cough. Reports no fevers/chills, chest pain, abdominal pain, nausea, or vomiting. No rashes or painful areas per patient on skin. Does note some right hip pain. Knees are also painful, but he reports that he can "work that out" by walking. Physical Exam Constitutional: WD/WN, vitals as above Eyes: EOM intact bilaterally; no conjunctival abnormality ENMT: external ear and nose normal, oropharynx normal Neck: trachea midline, no thyromegaly normal visual inspection Respiratory: normal respiratory effort, lungs clear to auscultation no respiratory distress Cardiovascular: RRR, no murmur, no edema Gastrointestinal (Abdomen): Inspection/Auscultation: abdomen normal to inspection; abdomen not distended Percussion/Palpation: abdomen soft; abdomen nontender, no guarding and abdomen not rigid Musculoskeletal: no cyanosis or clubbing, extremities motor strength 5/5 Skin: no rashes, warm and dry Neurologic: moves all extremities and awake Psychiatric: Orientation: alert, oriented to person and cooperative Results & Data Results & Data ([facility]) Vital Signs (Past 12 Hours) Vital Signs Temp Pulse Pulse Resp BP Pulse Ox 03/02/22 11:05 36.6 C 104 H 99/69 L 92 03/02/22 07:14 105 H 03/02/22 06:52 96 H 03/02/22 04:12 36.7 C 100 H 20 94/60 L 92 PG Care Time/CCT Total # of Minutes Spent Total Time Spent with Patient: Total time spent is greater than 50% in coordination of care (as documented) at patient's floor/unit and/or counseling patient: Coding Level of Care Code 64465 Subseq Hosp Care Lvl 3 Diagnoses Sepsis A41.9 Elevated liver enzymes R74.8 Anemia D64.9 Squamous cell carcinoma Acute bilateral knee pain M25.561; M25.562 Hypoxia R09.02 NICM (nonischemic cardiomyopathy) I42.8 CKD (chronic kidney disease) stage 3, GFR 30-59 ml/min N18.3 Chronic systolic heart failure I50.22 AAA (abdominal aortic aneurysm) I71.4 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
[2022-03-02] MEDS: oxyCODONE HCL IR 5 MG TAB (IMMEDIATE RELEASE) PO PRN (15:58)
[2022-03-02 17:43] LABS: Bilirubin,Total 1.5 mg/dl (0.2-1.0)
[2022-03-02 17:52] LABS: Bilirubin Direct 0.8 mg/dl (0-0.2); Total Protein 7.4 gm/dl (6.0-8.3)
[2022-03-02] MEDS ORDERED: DAPTOMYCIN IV SCH (19:00)
[2022-03-02] MEDS ORDERED: COLCHICINE 0.6 MG TAB PO SCH (21:00)
[2022-03-02] MEDS ORDERED: RIVAROXABAN 15 MG TAB PO SCH (21:00)
[2022-03-03] MEDS: PANTOprazole 40 MG TAB PO SCH (06:02)
[2022-03-03 07:26] LABS: Hematocrit (blood only) 26.9 % (42-52); Hemoglobin 8.4 g/dL (14.0-18.0); Mean Corpuscular Hemoglobin 29.5 pg (25-34); Mean Corpuscular Hgb Conc 31.2 g/dL (32-36); Mean Corpuscular Volume 94.4 fL (80-100); Mean Platelet Volume 10.5 fL (7.4-10.4); Nucleated RBC # (auto) 0.08 K/uL (0-0); Nucleated RBC % (auto) 0.4 %; Platelet Count 528 K/uL (130-400); RDW Coefficient of Variation 17.4 % (11.5-14.5); Red Blood Count 2.85 M/uL (4.7-6.1); White Blood Count 18.33 K/uL (4.8-10.8)
[2022-03-03 07:31] LABS: INR 1.6 (0.9-1.1); Prothrombin Time 16.5 Seconds (9.0-12.0)
[2022-03-03 07:34] LABS: BUN Creatinine Ratio 21.6 (10-20); Calcium 9.7 mg/dl (8.5-10.1); Creatinine Clr Calc Pharmacy 50.3 ml/min; Est GFR (African American) 46.3 ml/min; Magnesium 1.8 mg/dl (1.7-2.4); Potassium 4.5 mmol/L (3.5-5.1)
[2022-03-03 07:53] LABS: Basophils # (auto) 0.05 K/uL (0-0.2); Basophils % (auto) 0.3 %; Eosinophils # (auto) 0.17 K/uL (0-0.5); Eosinophils % (auto) 0.9 %; Immature Granulocytes # (auto) 1.22 K/uL (0.00-0.02); Immature Granulocytes % (auto) 6.7 %; Lymphocytes # (auto) 2.15 K/uL (1.2-3.4); Lymphocytes % (auto) 11.7 %; Monocytes # (auto) 2.19 K/uL (0.11-0.59); Monocytes % (auto) 11.9 %; Neutrophils # (auto) 12.55 K/uL (1.4-6.5); Neutrophils % (auto) 68.5 %; Rouleaux 1+
[2022-03-03] MEDS: SPIRONOLACTONE 12.5 MG TAB PO SCH (08:32)
[2022-03-03] MEDS: DOCUSATE SODIUM/SENNA 50/8.6MG TAB PO SCH (08:32)
[2022-03-03] MEDS: AZITHROMYCIN 250 MG TAB PO SCH (08:33)
[2022-03-03] MEDS: CETIRIZINE HCL 10 MG TABLET PO SCH (08:33)
[2022-03-03] MEDS: FUROSEMIDE 40 MG TAB PO SCH (08:33)
[2022-03-03] MEDS: METOPROLOL SUCC 50MG EXT REL TAB PO SCH ×2 (08:34→20:47)
[2022-03-03] MEDS: PIPERACILLIN/TAZOBACTAM 3.375 GM in DEXTROSE 5% 100 ML IV SCH ×2 (08:37→16:10)
[2022-03-03] MEDS ORDERED: predniSONE 20 MG TAB PO ONE (09:00)
--- NOTE | 2022-03-03 09:03 | Electrocardiogram Report ---
Test Reason : Blood Pressure : / mmHG Vent. Rate : 103 BPM Atrial Rate : 103 BPM P-R Int : 168 ms QRS Dur : 094 ms QT Int : 324 ms P-R-T Axes : 031 -19 046 degrees QTc Int : 424 ms Sinus tachycardia with occasional ventricular-paced complexes and with occasional Premature ventricul ar complexes Low voltage QRS Inferior infarct , age undetermined Abnormal ECG When compared with ECG of 21-FEB-2022 18:12, Electronic ventricular pacemaker has replaced Electronic atrial pacemaker Confirmed by George Elizondo ([id number]) on 03/03/2022 9:03:00 AM Referred By: REFERRED SELF Confirmed By:George Elizondo
--- NOTE | 2022-03-03 10:53 | Orthopedic Consultation ---
Date of Consultation March 03, 2022 Assessment & Plan (1) Acute bilateral knee pain: (2) Bilateral foot pain: (3) Bilateral knee effusions: Differential dx - gout vs arthritic flare vs septic joint. More favorable for gout vs arthritic flare due to mostly pain free active and passive range of motion of knees and ankles. Pt mostly reports stiffness due to swelling. No redness or warmth appreciated Keep NPO Continue antibiotics OOB w/ assist PT/OT Obtain bilateral knee and right ankle x rays Will discuss with attending History of Present Illness Attending Physician: Abraham Hayden MD History of Present Illness Pt is a 71 year old male with PMH significant for recently diagnosed squamous cell carcinoma-started on Gemcitabine and [id number], NICM, ILD secondary to granulomatous disease, CKD, AAA, DVT, PE (2016 (on Xarelto), and pacemaker. Patient presented to the ED yesterday for complaints of continued fatigue, bilateral knee and hip pain that has been ongoing since his chemotherapy induction started on 02/02/22. The patient has not received any further chemotherapy at this time secondary to his continued fatigue. He was found to be septic and started on broad spectrum antibiotics. It was found that he had bilateral ankle swelling and knee swelling. Orthopedics was consulted for further evaluation and concern for gout flare vs septic joints. Pt seen and examined at bedside today. He reports to me that he is feeling "okay" and overall feels better today than he did yesterday. He says that his ankle pain feels better, but his knees are about the same. He says that the pain in his legs started shortly after his last chemotherapy treatment. He endorses bilateral hip, knee and ankle pain. He says that he has always had some swelling in his legs. When asked if anything had recently gotten worse he said he was unsure. He does have a history or gout and says that he usually has flare ups in his knees and ankles. He has a known history or peripheral neuropathy and has some numbness in his feet at baseline, but he denies any new numbness or tingling. He denies any weakness, but then says that he feels like he lost the "strength" in his legs. He denies any red or hot knees or ankles. He says that walking is difficult for him, mostly because his knees and ankles are stiff. When asked what was more bothersome for him, the knees or ankles, he said it was hard to tell. He said that one leg is not worse than the other, they feel about the same. He denies feeling feverish or chilled currently. He denies any previous injuries or surgeries to his knees or ankle. He did say that he had "blood clots removed" from his left leg a couple years ago. Allergies Allergy/AdvReac Type Severity Reaction Status Date / Time diphtheria toxoid,fluid Allergy Severe CONVULSIONS--HORSE Verified 03/01/22 15:11 SERUM BASE tetanus toxoid, adsorbed Allergy Severe CONVULSIONS--HORSE Verified 03/01/22 15:11 SERUM BASE Home Medications Medication Instructions Recorded Confirmed Type atorvastatin 40 mg tablet 40 mg PO HS 10/29/19 03/01/22 History cholecalciferol (vitamin D3) 25 2,000 unit PO QDL 11/20/19 03/01/22 History mcg (1,000 unit) capsule (Vitamin D3) cyanocobalamin (vitamin B-12) 1,000 mcg PO QDL 11/20/19 03/01/22 History 1,000 mcg tablet (Vitamin B-12) folic acid 1 mg tablet 1 mg PO QDL 06/08/20 03/01/22 History metoprolol succinate 50 mg 50 mg PO BID tab 01/04/21 03/01/22 History tablet,extended release 24 hr cetirizine 10 mg tablet (Zyrtec) 5 mg PO QAM 08/16/21 03/01/22 History albuterol sulfate 90 mcg/actuation 2 inh INHALATION Q4H PRN #8.5 g 09/21/21 03/01/22 Rx aerosol inhaler pantoprazole 20 mg tablet,delayed 20 mg PO DAILYBB 09/21/21 03/01/22 History release spironolactone 25 mg tablet 12.5 mg PO QAM 09/21/21 03/01/22 History furosemide 40 mg tablet 40 mg PO QAM #0 tab 12/31/21 03/01/22 Rx rivaroxaban 15 mg tablet (Xarelto) 15 mg PO HS #30 tab 12/31/21 03/01/22 Rx ondansetron HCl 8 mg tablet 8 mg PO Q8H PRN 02/21/22 03/01/22 History oxycodone 5 mg tablet 5 mg PO Q12H PRN 02/21/22 03/01/22 History prochlorperazine maleate 10 mg 10 mg PO Q6H PRN 02/21/22 03/01/22 History tablet Patient History Medical History Acute blood loss anemia Acute GI bleeding Atrial fibrillation dx 2016 - follows w/ Dr. Trejo Congestive heart failure Deep vein thrombosis RLE - 2016 dx while hospitalized w/ pneumonia Duodenal ulcer Hearing deficit [facility] Hematoma of left lower extremity Interstitial lung disease Osteoarthritis Pneumonia Pulmonary embolism 2016 - dx while hospitalized w/ pneumonia - on xarelto Surgical History History of appendectomy History of cardiac catheterization 2015 - [place] - no stents History of cardioversion 11/08/2016 History of carpal tunnel release of both wrists History of cataract surgery History of colonoscopy History of esophagogastroduodenoscopy (EGD) History of evacuation of hematoma LLE History of shoulder surgery Left 2004 History of tonsillectomy Presence of combination internal cardiac defibrillator (ICD) and pacemaker placed 2017 - Warp 9tronic - last checked 1 year ago - follows w/ dr. yeh Family History Mother Diabetes Grandfather (Paternal) No problems noted. 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: No Beliefs That Will Affect Care: None marital status: Current Living Situation: Spouse current occupational status: retired 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 How many Children do You have: 0 Other Information That Helps Us Care for You: No Feels Safe at Home: Yes Safety Concerns: Feels Safe At This Time Childhood Exposure to Second-Hand Smoke: Yes (dad did ) caffeine: Yes (cup of coffee in morning ) Dental Care, Regularly: No Physical Activity Frequency: Does not Exercise Seatbelt Use: always Sunscreen Use: No (doesn't go out in sun ) Assistive Devices: Cane, Oxygen - at Night and Wheelchair Review of Systems Review of Systems: Per HPI Physical Exam Physical Exam: General: Upon entering the room the patient is awake alert and oriented x3, he is in no acute distress, he is calm and cooperative during exam, he is sitting up in his bed Right lower extremity: Patient has notable bony deformity noted about his right knee as well as moderate knee effusion. There is no erythema, warmth, breaks in the skin, ecchymosis or fluctuance. Patient is tender to palpate distal to his patella and along the medial joint line. His range of motion is limited due to stiffness, he is ranging -10 degrees to 90. Ligaments intact with varus and valgus stressing. Calf is supple and nontender. Patient is neurovascularly intact with sensation distally and 2+ DP pulse present. Skin of affected extremity is warm and pink. There is edema noted about the patient's foot and ankle. He is tender to palpate about the medial, anterior and lateral ankle. He has good range of motion with dorsiflexion and plantarflexion with no reported pain in his ankle. He did say he had some pain at his big toe on the plantar aspect. Straight leg raise intact. 4 out of 5 strength with resisted dorsiflexion plantarflexion. Left lower extremity: Patient has notable bony deformity about his left knee as well as mild knee effusion. There is no erythema, warmth, breaks in the skin, ecchymosis or fluctuance. Patient is tender to palpate along the medial and lateral joint lines. His range of motion is limited due to stiffness, he is ranging -10 degrees to 95. Ligaments intact with varus and valgus stressing. Calf is supple and nontender. Patient is neurovascular intact to sensation distally 2+ DP pulse present. Skin of affected extremity is warm and pink. There is edema noted about the patient's foot and ankle, less severe than his right distal extremity. Mildly tender to palpate about anterior ankle. No tenderness over distal or medial mal. He has good range of motion with dorsiflexion plantarflexion with no reportable pain in his ankle or foot. Straight leg raise intact. 4 out of 5 strength with resisted dorsiflexion and plantarflexion Results & Data ([facility]) Vital Signs (Past 12 Hours) Vital Signs Temp Pulse Pulse Resp BP BP Pulse Ox 03/03/22 09:33 92 H 03/03/22 06:50 36.4 C L 97 H 20 106/70 100 03/02/22 23:29 36.7 C 101 H 20 107/66 96 Laboratory Results 03/03/22 03/03/22 03/03/22 Range/Units 07:37 06:41 06:41 WBC (4.8-10.8) K/uL RBC (4.7-6.1) M/uL Hgb (14.0-18.0) g/dL Hct (42-52) % MCV (80-100) fL MCH (25-34) pg MCHC (32-36) g/dL RDW Std Deviation (36.4-46.3) fL RDW Coeff of Yogi (11.5-14.5) % Plt Count (130-400) K/uL MPV (7.4-10.4) fL Immature Gran % (Auto) % Neut % (Auto) % Lymph % (Auto) % Terry % (Auto) % Eos % (Auto) % Baso % (Auto) % Neut # (Auto) (1.4-6.5) K/uL Lymph # (Auto) (1.2-3.4) K/uL Terry # (Auto) (0.11-0.59) K/uL Eos # (Auto) (0-0.5) K/uL Baso # (Auto) (0-0.2) K/uL Immature Gran # (Auto) (0.00-0.02) K/uL Absolute Nucleated RBC (0-0) K/uL Nucleated RBC % (auto) % Rouleaux PT (9.0-12.0) Seconds INR (0.9-1.1) Sodium 132 L (136-145) mmol/L Potassium 4.5 (3.5-5.1) mmol/L Chloride 94 L (98-107) mmol/L Carbon Dioxide 28 (21-32) mmol/L Anion Gap 10 (3-11) BUN 36 H (6-23) mg/dl Creatinine 1.67 H (0.6-1.4) mg/dl Est Cr Clr Drug Dosing 50.3 ml/min Est GFR ( Amer) 46.3 ml/min Est GFR (Non-Af Amer) 40.0 ml/min BUN/Creatinine Ratio 21.6 H (10-20) Glucose 115 H (70-99(Fasting)) mg/dl POC Glucose 121 H (70-99) mg/dl Uric Acid (2.6-7.2) mg/dl Calcium 9.7 (8.5-10.1) mg/dl Magnesium 1.8 (1.7-2.4) mg/dl Total Bilirubin (0.2-1.0) mg/dl Direct Bilirubin (0-0.2) mg/dl AST (13-39) U/L ALT (7-52) U/L Alkaline Phosphatase (34-104) U/L Total Protein (6.0-8.3) gm/dl Albumin (3.4-5.0) gm/dl Procalcitonin 1.69 H (0-0.5) ng/ml 03/03/22 03/03/22 03/02/22 Range/Units 06:41 06:41 16:53 WBC 18.33 H (4.8-10.8) K/uL RBC 2.85 L (4.7-6.1) M/uL Hgb 8.4 L (14.0-18.0) g/dL Hct 26.9 L (42-52) % MCV 94.4 (80-100) fL MCH 29.5 (25-34) pg MCHC 31.2 L (32-36) g/dL RDW Std Deviation 58.0 H (36.4-46.3) fL RDW Coeff of Yogi 17.4 H (11.5-14.5) % Plt Count 528 H (130-400) K/uL MPV 10.5 H (7.4-10.4) fL Immature Gran % (Auto) 6.7 % Neut % (Auto) 68.5 % Lymph % (Auto) 11.7 % Terry % (Auto) 11.9 % Eos % (Auto) 0.9 % Baso % (Auto) 0.3 % Neut # (Auto) 12.55 H (1.4-6.5) K/uL Lymph # (Auto) 2.15 (1.2-3.4) K/uL Terry # (Auto) 2.19 H (0.11-0.59) K/uL Eos # (Auto) 0.17 (0-0.5) K/uL Baso # (Auto) 0.05 (0-0.2) K/uL Immature Gran # (Auto) 1.22 H (0.00-0.02) K/uL Absolute Nucleated RBC 0.08 H (0-0) K/uL Nucleated RBC % (auto) 0.4 % Rouleaux 1+ PT 16.5 H (9.0-12.0) Seconds INR 1.6 H (0.9-1.1) Sodium (136-145) mmol/L Potassium (3.5-5.1) mmol/L Chloride (98-107) mmol/L Carbon Dioxide (21-32) mmol/L Anion Gap (3-11) BUN (6-23) mg/dl Creatinine (0.6-1.4) mg/dl Est Cr Clr Drug Dosing ml/min Est GFR ( Amer) ml/min Est GFR (Non-Af Amer) ml/min BUN/Creatinine Ratio (10-20) Glucose (70-99(Fasting)) mg/dl POC Glucose 142 H (70-99) mg/dl Uric Acid (2.6-7.2) mg/dl Calcium (8.5-10.1) mg/dl Magnesium (1.7-2.4) mg/dl Total Bilirubin (0.2-1.0) mg/dl Direct Bilirubin (0-0.2) mg/dl AST (13-39) U/L ALT (7-52) U/L Alkaline Phosphatase (34-104) U/L Total Protein (6.0-8.3) gm/dl Albumin (3.4-5.0) gm/dl Procalcitonin (0-0.5) ng/ml 03/02/22 03/02/22 Range/Units 11:29 06:40 WBC (4.8-10.8) K/uL RBC (4.7-6.1) M/uL Hgb (14.0-18.0) g/dL Hct (42-52) % MCV (80-100) fL MCH (25-34) pg MCHC (32-36) g/dL RDW Std Deviation (36.4-46.3) fL RDW Coeff of Yogi (11.5-14.5) % Plt Count (130-400) K/uL MPV (7.4-10.4) fL Immature Gran % (Auto) % Neut % (Auto) % Lymph % (Auto) % Terry % (Auto) % Eos % (Auto) % Baso % (Auto) % Neut # (Auto) (1.4-6.5) K/uL Lymph # (Auto) (1.2-3.4) K/uL Terry # (Auto) (0.11-0.59) K/uL Eos # (Auto) (0-0.5) K/uL Baso # (Auto) (0-0.2) K/uL Immature Gran # (Auto) (0.00-0.02) K/uL Absolute Nucleated RBC (0-0) K/uL Nucleated RBC % (auto) % Rouleaux PT (9.0-12.0) Seconds INR (0.9-1.1) Sodium (136-145) mmol/L Potassium (3.5-5.1) mmol/L Chloride (98-107) mmol/L Carbon Dioxide (21-32) mmol/L Anion Gap (3-11) BUN (6-23) mg/dl Creatinine (0.6-1.4) mg/dl Est Cr Clr Drug Dosing ml/min Est GFR ( Amer) ml/min Est GFR (Non-Af Amer) ml/min BUN/Creatinine Ratio (10-20) Glucose (70-99(Fasting)) mg/dl POC Glucose 138 H (70-99) mg/dl Uric Acid 7.0 (2.6-7.2) mg/dl Calcium (8.5-10.1) mg/dl Magnesium (1.7-2.4) mg/dl Total Bilirubin 1.5 H (0.2-1.0) mg/dl Direct Bilirubin 0.8 H (0-0.2) mg/dl AST 84 H (13-39) U/L ALT 101 H (7-52) U/L Alkaline Phosphatase 437 H (34-104) U/L Total Protein 7.4 (6.0-8.3) gm/dl Albumin 3.0 L (3.4-5.0) gm/dl Procalcitonin (0-0.5) ng/ml
--- NOTE | 2022-03-03 11:52 | Electrocardiogram Report ---
Test Reason : Blood Pressure : / mmHG Vent. Rate : 107 BPM Atrial Rate : 048 BPM P-R Int : 158 ms QRS Dur : 092 ms QT Int : 330 ms P-R-T Axes : 050 -23 078 degrees QTc Int : 440 ms Sinus tachycardia with frequent Premature ventricular complexes Low voltage QRS Nonspecific ST abnormality Abnormal ECG When compared with ECG of 01-MAR-2022 12:49, (unconfirmed) No significant change Confirmed by George Elizondo ([id number]) on 03/03/2022 11:52:27 AM Referred By: REFERRED SELF Confirmed By:George Elizondo
[2022-03-03] MEDS: FOLIC ACID 1 MG TAB PO SCH (12:13)
[2022-03-03] MEDS: CYANOCOBALAMIN (B-12) 500 MCG TABLET PO SCH (12:13)
--- NOTE | 2022-03-03 14:27 | Electrocardiogram Report ---
Test Reason : Blood Pressure : / mmHG Vent. Rate : 103 BPM Atrial Rate : 085 BPM P-R Int : 160 ms QRS Dur : 094 ms QT Int : 346 ms P-R-T Axes : 029 -20 080 degrees QTc Int : 453 ms Sinus rhythm with a demand pacemaker with frequent Premature ventricular complexes Low voltage QRS Inferior infarct , age undetermined Abnormal ECG When compared with ECG of 02-MAR-2022 06:31, (unconfirmed) No significant change Confirmed by George Elizondo ([id number]) on 03/03/2022 2:27:01 PM Referred By: REFERRED SELF Confirmed By:George Elizondo
--- NOTE | 2022-03-03 15:27 | XRay Report ---
XR ankle RT min 3V routine CLINICAL HISTORY: Right ankle pain and swelling. COMPARISON: Right foot radiographs February 21, 2022. FINDINGS: Alignment of the right ankle is anatomic. Talar dome is intact. No acute fracture is noted . There is no suspicious osseous lesion. Moderate posterior and mild plantar calcaneal spurring is pr esent. There is moderate vascular calcification. Soft tissue calcifications are noted. Ankle soft tis darrius swelling is present. IMPRESSION: 1. No acute fracture or dislocation within the right ankle. 2. Ankle soft tissue swelling. 3. Moderate posterior and mild plantar calcaneal spurring. ACT 112: Negative or not required by law. Electronically signed by: Ramiro Ponce M.D. 03/03/2022 3:25 PM
--- NOTE | 2022-03-03 15:39 | XRay Report ---
XR ankle LT min 3V routine HISTORY: 71 years-old Male pain acute pain and swelling of the left ankle COMPARISON: Left foot radiographs 02/21/2022 TECHNIQUE: 3 views of the left ankle FINDINGS: Moderate circumferential soft tissue swelling. Arterial calcifications. Moderate osteoarthritis of th e foot and ankle. No acute fracture, dislocation or osteochondral defect. Arterial calcifications. IMPRESSION: No acute fracture or dislocation. ACT 112: Negative or not required by law. The above report was generated using voice recognition software. It may contain grammatical, syntax o r spelling errors. Electronically signed by: Rogelio Sapp M.D. 03/03/2022 3:38 PM
--- NOTE | 2022-03-03 17:11 | Hospitalist Progress Note ---
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 Patient comes to the EMD today for complaints of continued fatigue, bilateral knee and hip pain that has been ongoing since his chemotherapy induction started on 02/02/22. The patient has not received any further chemotherapy at this time secondary to his continued fatigue. The patient has been having a continuing downtrending of his hemoglobin since January and following induction chemo was down to 8.8. At the ER was 7.9. The patient also noted to have leukocytosis as well as acute elevation of his liver enzymes and INR up to 1.4 as well as elevated HScTNI. Family reports periods of rigors and chills at home that gotten worse over the past 3 days. Patient has poor recall of this. Also endorsing dark urine at home with one episode of hematuria reported last week, but has not had anymore. He has a history of gout disease and complaining of bilateral knee pain to the point that he cannot ambulate. The joints are not red or fnp the EMD the patient had routine labs drawn, CXR and ECG. His ECG did not show any ST segment changes. Patient gets his oncological care at [facility], follows with pulmonary at [facility], Cardiology at [facility]. #Presented to hospital with generalized weakness bilateral arthritis, chest x- ray is clear, CT of abdomen is unremarkable, urine is unremarkable, patient complained of bilateral knee pain in the setting of history of gout disease, uric acid is within normal limits, patient had recent chemotherapy, Appreciated orthopedic consult Awaiting for synovial fluid analysis of both knees and ankle Empirically started on prednisone Doubt there is any infectious process Stop daptomycin Monitoring the blood culture - Anaplasmosis and Lyme IGG/IGM negative (2) Elevated liver enzymes: Plan: Elevated AST/ALT/ ALK PO4 and elevated INR -Mildly elevated, possibly related to recent chemotherapy lung cancer - Normal bilirubin and without jaundice - CT scan without any evidence of pneumatosis gallbladder normal - Liver ultrasound with Doppler evaluate for hepatic thrombus (side effect of chemo) - Negative. - Anaplasmosis negative via smear -Repeat CMP tomorrow (3) Anemia: Plan: Chronically down trending HGB over past 2 months- does not endorse GI loss - No retroperitoneal bleed noted on CT abd/pelvis - Transfuse 1 unit PRBC to get > 8 - continue to support organ dysfunction - symptomatic with dyspnea and fatigue - CBC in morning - RBC 2.65, normocytic, normochromic - Noted thrombocytosis at 598 -Resume Xarelto (4) Squamous cell carcinoma: Plan: Bronchoscopy evaluation by [facility]ly for lymph node biopsy and right middle lobe biopsy - reported as non-small cell carcinoma and right middle lobe with squamous cell carcinoma - Started chemotherapy with Gemcitabine and carboplatin (5) Acute bilateral knee pain: Plan: Patient has history of gout, possible pseudogout or gout, proceed with Ortho consult and joint aspiration, awaiting for synovial fluid analysis (6) Hypoxia: Plan: Secondary to anemia, CHF, ILD and possible source of infection - follow - diurese in am (7) NICM (nonischemic cardiomyopathy): Plan: Remains on diuretic therapy and Entresto- dose was reduced in December Previous ECHo 01/18- EF 40-45% - Follow his hemodynamics through PM- his Entresto is not on his med rec- but should be on 24-26mg 1 tab BID- if hemodynamically stable in am consider adding back - Continue with Lasix and Aldactone pending hemodynamics - diurese following PRBC (8) CKD (chronic kidney disease) stage 3, GFR 30-59 ml/min: Plan: YELENA II on CKD III- replenish intravascular volume with PRBC - Follow BUN and POSTDOCTORAL SCHOLAR- POSTDOCTORAL SCHOLAR baseline 1.3-2- currently 1.5 - Stable today. (9) Chronic systolic heart failure: Plan: As above reduced ejection fraction- it is possible that had decrease in cardiac function with current chemotherapy induction - follow organ perfusion as well as infectious biomarkers- - not overtly overloaded from peripheral standpoint (10) AAA (abdominal aortic aneurysm): Plan: stable- No change in a 3 cm infrarenal abdominal aortic aneurysm. 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 ILD flair ahd CHF exacerbation - remains whether NSIP or UIP - was to have PFTs completed in December- but does not look as this was completed Admission and Anticipated Discharge Date Admission Date: March 01, 2022 Subjective Complains of knee pain Review of Systems Review of Systems: REVIEW OF SYSTEMS: Constitutional: (No fever , sweats or chills Eyes: No diplopia, no worsening or blurred vision ENT: normal hearing, no trouble swallowing Respiratory: No cough, sputum, dyspnea at rest or on exertion Cardiovascular: No chest pain, tightness or palpitations Abdomen: No pain, nausea, vomiting, diarrhea or constipation Musculoskeletal: (+) knee and hip joint pain, left leg calf swelling (reports chronic) Neurologic: (+) decrease in ambulation secondary to joint pain, weakness, NO numbness/tingling, or balance problems Psychiatric: No anxiety or depression Skin: No rash or itch Physical Exam Physical Exam: PHYSICAL EXAM: General: awake, alert, pale and fatigued appearing Head: Normocephalic, atraumatic ENT: PERRLA, EOMI, no pharyngeal exudate, mucous membranes dry Neuro: AAO x 3, speech clear and appropriate, strength intact bilaterally 5/5, sensation intact and equal all extremities and dermatomes, no pronator drift Chest: equal rise and fall of the chest, no accessory muscle use, no heaves or thrills, scattered crackles throughout bilateral lung prater Cardiac: Regular rate and rhythm, telemetry reviewed, skin warm dry, cap refill <3 seconds, peripheral pulses +2 no JVD, no murmur, + 2 edema to bilateral lower extremity feet and mid woods GI: NABS x 4 quadrants, soft, nontender to palpation, no rebound, guarding or tenderness : Spontaneously voiding, no pain, no CVA tenderness, Extremities: Normal inspection, no peripheral edema or erythema, calfs nontender to palpation Psych: Normal mood and affect Skin: no rash or erythema, not jaundiced Constitutional: WD/WN, vitals as above Eyes: EOM intact bilaterally; no conjunctival abnormality ENMT: external ear and nose normal, oropharynx normal Neck: trachea midline, no thyromegaly normal visual inspection Respiratory: normal respiratory effort, lungs clear to auscultation no re spiratory distress Cardiovascular: RRR, no murmur, no edema Gastrointestinal (Abdomen): Inspection/Auscultation: abdomen normal to inspection; abdomen not distended Percussion/Palpation: abdomen soft; abdomen nontender, no guarding and abdomen not rigid Musculoskeletal: no cyanosis or clubbing, extremities motor strength 5/5 Skin: no rashes, warm and dry Neurologic: moves all extremities and awake Psychiatric: Orientation: alert, oriented to person and cooperative Results & Data Results & Data ([facility]) Vital Signs (Past 12 Hours) Vital Signs Temp Pulse Pulse Resp BP BP Pulse Ox 03/03/22 16:56 36.7 C 98 H 18 93/66 L 99 03/03/22 14:52 107 H 03/03/22 10:56 36.5 C 85 18 101/68 97 03/03/22 09:33 92 H 03/03/22 06:50 36.4 C L 97 H 20 106/70 100 PG Care Time/CCT Total # of Minutes Spent Total Time Spent with Patient: Total time spent is greater than 50% in coordination of care (as documented) at patient's floor/unit and/or counseling patient: Coding Level of Care Code 10990 Subseq Obs Care Lvl 3 Diagnoses Sepsis A41.9 Elevated liver enzymes R74.8 Anemia D64.9 Squamous cell carcinoma Acute bilateral knee pain M25.561; M25.562 Hypoxia R09.02 NICM (nonischemic cardiomyopathy) I42.8 CKD (chronic kidney disease) stage 3, GFR 30-59 ml/min N18.3 Chronic systolic heart failure I50.22 AAA (abdominal aortic aneurysm) I71.4 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
--- NOTE | 2022-03-03 17:24 | Progress Notes ---
DATE OF SERVICE: 03/03/2022. Patient is seen in conjunction with Jennifer Lee, the physician's captain's assistant. For further details, refe r to her dictation. She and I saw and evaluated together and I am in agreement with the plan. The patient is well known to me from previous orthopedic treatments. He reports that since 2 when he received some chemo, he has been having difficulties with both knees, both hips and both an kles. Things have not really changed substantially. At rest, he has no pain. Symptoms are aggravat ed with activity and sometimes his knee is locked up and give out on him. Predominantly today its tamiko th knees and the right ankle, although he is in no pain sitting here at rest. He has been ambulating with a walker. There has been no history of injury. He unfortunately is getting chemotherapy for l bird cancer. He has not reported any significant redness or substantial swelling of either knee. He has had some swelling of the ankles, right greater than left. His health history is noted and reviewed along with his medications, allergies and health history. His white count is elevated. It has been elevated off and on for a few weeks. His sed rate and C-re active protein are elevated. He is afebrile. He does have a history of gout and that was treated last about a year ago. On physical examination, there is limited movement of the right hip and we will go ahead and check an x-ray. It is painless. He has significant flexion contractures of both knees. Range of motion is estimated 0/20/90-100 bilaterally. The right knee is slightly warm, but not erythematous. Skin wrin kles are in place. Same thing on the left knee, although it is not warm. There is no erythema bilat erally. Tenderness is isolated to the medial joint line. He has small to moderate effusions in both knees. Cruciates and collaterals are intact. He can do a leg raise. Examination of the ankles reveals tenderness over the anterior aspect of the right ankle and also ove r the arch. Both feet are enlarged. The right one is more swollen than the left. They were otherwi se nontender. His knee movement is painless within the range specified. His ankle movement is painl ess except for terminal dorsiflexion on the right. There is no pain on palpation of the toes or move ment of the toes. Left ankle movement elicits no pain. The left ankle is nontender. The right ankle shows some discomfort as mentioned over the arch and the anterior aspect of the ankle, but he has go od range of motion. Strength is 5/5 to ankle and toe plantar flexion, dorsiflexion, inversion, brook ion, knee flexion and extension. Dorsalis pedis pulse is 1+ bilaterally. Posterior tibial not palpa ble on the left. On the right, it is 2+. With his permission, sterile technique was utilized to aspirate the right ankle, which yielded only a trace amount of blood. This was sent for Gram stain, aerobic and anaerobic culture and we will see if we can get a crystal analysis. The right knee was aspirated in a likewise fashion, yielding about 6 mL of opaque yellow fluid. The left knee was aspirated likewise in a sterile fashion and this yie lded about 10 mL of opaque yellow fluid. This was sent for Gram stain, aerobic and anaerobic culture , cell count with differential and crystal analysis. Radiographs of the both feet, both ankles, and both knees are reviewed. There are no acute processes at play. There is no fracture. Vascular calcifications are noted. Reports are appreciated. There is no dislocation. He has arthritis in both of his knees with effusions. IMPRESSION: Bilateral knee and right ankle pain. PLAN: Aspirate all 3 areas today. It is possible he could have septic arthritis. I am favoring mor e of a gout situation. At this time, I spoke with the hospitalist and he will be started on prednison e. We agreed to hold on daptomycin until we get some lab results back and see how he does with the p rednisone. If he has a septic arthritis. He will need a washout. We will go ahead and allow him to eat now. We will make him n.p.o. after midnight. He will need a walker to ambulate. PT and OT. H e is on Xarelto and that will need to be held in case he needs surgery. Job ID: [id number]
[2022-03-03] MEDS: oxyCODONE HCL IR 5 MG TAB (IMMEDIATE RELEASE) PO PRN (17:50)
--- NOTE | 2022-03-03 17:53 | XRay Report ---
XR hip RT min 2V HISTORY: 71 years-old Male pain acute right hip pain status post fall COMPARISON: CT abdomen and pelvis 03/01/2022 TECHNIQUE: 2 views of the right hip FINDINGS: Severe right hip osteoarthritis. No acute fracture, dislocation or avascular necrosis. Unremarkable s oft tissues. IMPRESSION: No acute fracture or dislocation. ACT 112: Negative or not required by law. The above report was generated using voice recognition software. It may contain grammatical, syntax o r spelling errors. Electronically signed by: Rogelio Sapp M.D. 03/03/2022 5:51 PM
[2022-03-03 18:00] LABS: Appearance Synovial Fluid CLOUDY; Color Synovial Fluid YELLOW; Mononuclear WBC Synovial 4.2 %; Polynuclear WBC Synovial 95.8 %; RBC Synovial Fluid (A) 11000 /uL; Source Synovial Fluid KNEE; WBC Synovial Fluid (A) 51828 /ul (0-200)
[2022-03-03 18:16] LABS: Appearance Synovial Fluid CLOUDY; Color Synovial Fluid YELLOW; RBC Synovial Fluid (A) 15000 /uL; Source Synovial Fluid KNEE; WBC Synovial Fluid (A) 35795 /ul (0-200)
[2022-03-03] MEDS: RIVAROXABAN 20 MG TAB PO SCH (20:28)
[2022-03-04] MEDS: PANTOprazole 40 MG TAB PO SCH (06:44)
[2022-03-04 07:36] LABS: Hematocrit (blood only) 26.2 % (42-52); Hemoglobin 8.3 g/dL (14.0-18.0); Mean Corpuscular Hemoglobin 29.5 pg (25-34); Mean Corpuscular Hgb Conc 31.7 g/dL (32-36); Mean Corpuscular Volume 93.2 fL (80-100); Mean Platelet Volume 10.2 fL (7.4-10.4); Nucleated RBC # (auto) 0.07 K/uL (0-0); Nucleated RBC % (auto) 0.4 %; Platelet Count 527 K/uL (130-400); RDW Coefficient of Variation 17.6 % (11.5-14.5); RDW Standard Deviation 58.1 fL (36.4-46.3); Red Blood Count 2.81 M/uL (4.7-6.1); White Blood Count 17.58 K/uL (4.8-10.8)
[2022-03-04 08:01] LABS: ALC (manual) 1.23 K/uL (1.2-3.4); ANC (manual) 13.75 K/uL (1.4-6.5); Albumin Globulin Ratio 0.7 (0.9-2); BUN Creatinine Ratio 25.9 (10-20); Calcium 9.8 mg/dl (8.5-10.1); Creatinine Clr Calc Pharmacy 45.2 ml/min; Est GFR (Non-African American) 35.3 ml/min; Globulin 4.6 gm/dl (2.5-4.0); Lymphocytes # (manual) 1.23 K/uL (1.2-3.4); Magnesium 2.1 mg/dl (1.7-2.4); Metamyelocytes # (manual) 0.16 K/uL (0-0); Metamyelocytes % (manual) 0.9 %; Monocytes # (manual) 1.53 K/uL (0.11-0.59); Monocytes % (manual) 8.7 %; Myelocytes # (manual) 0.91 K/uL (0-0); Myelocytes % (manual) 5.2 %; Neutrophils # (manual) 13.75 K/uL (1.4-6.5); Neutrophils % (manual) 78.2 %; Polychromasia 1+; Potassium 4.6 mmol/L (3.5-5.1); Total Protein 7.6 gm/dl (6.0-8.3)
[2022-03-04] MEDS: METOPROLOL SUCC 50MG EXT REL TAB PO SCH ×2 (09:03→21:02)
[2022-03-04] MEDS: FUROSEMIDE 40 MG TAB PO SCH (09:03)
[2022-03-04] MEDS: DOCUSATE SODIUM/SENNA 50/8.6MG TAB PO SCH (09:03)
[2022-03-04] MEDS: SPIRONOLACTONE 12.5 MG TAB PO SCH (09:03)
[2022-03-04] MEDS: CETIRIZINE HCL 10 MG TABLET PO SCH (09:04)
[2022-03-04] MEDS: predniSONE 20 MG TAB PO SCH (09:05)
[2022-03-04] MEDS: FOLIC ACID 1 MG TAB PO SCH (11:47)
[2022-03-04] MEDS: CYANOCOBALAMIN (B-12) 500 MCG TABLET PO SCH (11:47)
--- NOTE | 2022-03-04 14:51 | Progress Notes ---
DATE OF SERVICE: 03/04/2022 Resting comfortably in bed. Feels much better after getting prednisone. Able to move knees and ankl es much better with minimal to no pain. No fevers. White count is still elevated at 17, hemoglobin 8, hematocrit 26, platelets 527. PRP is noted. He is able to bend the knees much easier and move th e ankles. Gram stains were all negative. Cultures, no growth to date. Fluid from the knees demonst rated 35,000-50,000 white cells. There is no cell count from the ankle. There were no crystals note d in the ankle aspirate, but both of the knees showed gout. Radiographs of the right hip show severe osteoarthritis. There is no fracture. He has osteoarthritis of the hip and both knees along with gouty arthritis affecting both knees. He is getting chemotherapy for lung cancer. At this time, I will continue to monitor his labs. He does not need any type of surgical interventio n. We will make sure that he has PT and OT here in the hospital. He should also consider rehab or s killed nursing facility if necessary prior to transitioning home. Continue the prednisone. He does not need any antibiotics at this point. I think we can go ahead and restart his Xarelto. Job ID: [id number]
--- NOTE | 2022-03-04 18:07 | Hospitalist Progress Note ---
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 Patient comes to the EMD today for complaints of continued fatigue, bilateral knee and hip pain that has been ongoing since his chemotherapy induction started on 02/02/22. The patient has not received any further chemotherapy at this time secondary to his continued fatigue. The patient has been having a continuing downtrending of his hemoglobin since January and following induction chemo was down to 8.8. At the ER was 7.9. The patient also noted to have leukocytosis as well as acute elevation of his liver enzymes and INR up to 1.4 as well as elevated HScTNI. Family reports periods of rigors and chills at home that gotten worse over the past 3 days. Patient has poor recall of this. Also endorsing dark urine at home with one episode of hematuria reported last week, but has not had anymore. He has a history of gout disease and complaining of bilateral knee pain to the point that he cannot ambulate. The joints are not red or stacker driver the EMD the patient had routine labs drawn, CXR and ECG. His ECG did not show any ST segment changes. Patient gets his oncological care at [facility], follows with pulmonary at [facility], Cardiology at [facility]. #Presented to hospital with generalized weakness bilateral arthritis, chest x- ray is clear, CT of abdomen is unremarkable, urine is unremarkable, patient complained of bilateral knee pain in the setting of history of gout disease, uric acid is within normal limits, patient had recent chemotherapy, Appreciated orthopedic consult Status post arthrocentesis, so far the cultures are negative, history is pending, there is about 30-50,000 white count, feels significantly better with prednisone, hold on antibiotic for (2) Leukocytosis: Plan: The patient had persistent leukocytosis since the beginning of December possibly secondary to malignancy, for now just monitor, does not seem there is any ongoing infectious process (3) Elevated liver enzymes: Plan: Elevated AST/ALT/ ALK PO4 and elevated INR -Mildly elevated, possibly related to recent chemotherapy lung cancer - Normal bilirubin and without jaundice - CT scan without any evidence of pneumatosis gallbladder normal - Liver ultrasound with Doppler evaluate for hepatic thrombus (side effect of chemo) - Negative. - Anaplasmosis negative via smear -Repeat CMP tomorrow (4) Anemia: Plan: Chronically down trending HGB over past 2 months- does not endorse GI loss - No retroperitoneal bleed noted on CT abd/pelvis - Transfuse 1 unit PRBC to get > 8 - continue to support organ dysfunction - symptomatic with dyspnea and fatigue - CBC in morning - RBC 2.65, normocytic, normochromic - Noted thrombocytosis at 598 -Resume Xarelto (5) Squamous cell carcinoma: Plan: Bronchoscopy evaluation by Curly for lymph node biopsy and right middle lobe biopsy - reported as non-small cell carcinoma and right middle lobe with squamous cell carcinoma - Started chemotherapy with Gemcitabine and carboplatin (6) Acute bilateral knee pain: Plan: Patient has history of gout, plan as mentioned above (7) Hypoxia: Plan: Resolving (8) NICM (nonischemic cardiomyopathy): Plan: Remains on diuretic therapy and Entresto- dose was reduced in December Previous ECHo 01/18- EF 40-45% - Follow his hemodynamics through PM- his Entresto is not on his med rec- but should be on 24-26mg 1 tab BID- if hemodynamically stable in am consider adding back - Continue with Lasix and Aldactone pending hemodynamics - diurese following PRBC (9) CKD (chronic kidney disease) stage 3, GFR 30-59 ml/min: Plan: YELENA II on CKD III- replenish intravascular volume with PRBC - Follow BUN and WATCH REPAIRER- WATCH REPAIRER baseline 1.3-2- currently 1.5 - Stable today. (10) Chronic systolic heart failure: Plan: As above reduced ejection fraction- it is possible that had decrease in cardiac function with current chemotherapy induction - follow organ perfusion as well as infectious biomarkers- - not overtly overloaded from peripheral standpoint (11) AAA (abdominal aortic aneurysm): Plan: stable- No change in a 3 cm infrarenal abdominal aortic aneurysm. 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 ILD flair ahd CHF exacerbation - remains whether NSIP or UIP - was to have PFTs completed in December- but does not look as this was completed Admission and Anticipated Discharge Date Admission Date: March 01, 2022 Subjective Complains of knee pain Review of Systems Review of Systems: REVIEW OF SYSTEMS: Constitutional: (No fever , sweats or chills Eyes: No diplopia, no worsening or blurred vision ENT: normal hearing, no trouble swallowing Respiratory: No cough, sputum, dyspnea at rest or on exertion Cardiovascular: No chest pain, tightness or palpitations Abdomen: No pain, nausea, vomiting, diarrhea or constipation Musculoskeletal: (+) knee and hip joint pain, left leg calf swelling (reports chronic) Neurologic: (+) decrease in ambulation secondary to joint pain, weakness, NO numbness/tingling, or balance problems Psychiatric: No anxiety or depression Skin: No rash or itch Physical Exam Physical Exam: PHYSICAL EXAM: General: awake, alert, pale and fatigued appearing Head: Normocephalic, atraumatic ENT: PERRLA, EOMI, no pharyngeal exudate, mucous membranes dry Neuro: AAO x 3, speech clear and appropriate, strength intact bilaterally 5/5, sensation intact and equal all extremities and dermatomes, no pronator drift Chest: equal rise and fall of the chest, no accessory muscle use, no heaves or thrills, scattered crackles throughout bilateral lung prater Cardiac: Regular rate and rhythm, telemetry reviewed, skin warm dry, cap refill <3 seconds, peripheral pulses +2 no JVD, no murmur, + 2 edema to bilateral lower extremity feet and mid woods GI: NABS x 4 quadrants, soft, nontender to palpation, no rebound, guarding or tenderness : Spontaneously voiding, no pain, no CVA tenderness, Extremities: Normal inspection, no peripheral edema or erythema, calfs nontender to palpation Psych: Normal mood and affect Skin: no rash or erythema, not jaundiced Constitutional: WD/WN, vitals as above Eyes: EOM intact bilaterally; no conjunctival abnormality ENMT: external ear and nose normal, oropharynx normal Neck: trachea midline, no thyromegaly normal visual inspection Respiratory: normal respiratory effort, lungs clear to auscultation no respiratory distress Cardiovascular: RRR, no murmur, no edema Gastrointestinal (Abdomen): Inspection/Auscultation: abdomen normal to inspection; abdomen not distended Percussion/Palpation: abdomen soft; abdomen nontender, no guarding and abdomen not rigid Musculoskeletal: no cyanosis or clubbing, extremities motor strength 5/5 Skin: no rashes, warm and dry Neurologic: moves all extremities and awake Psychiatric: Orientation: alert, oriented to person and cooperative Results & Data Results & Data ([facility]) Vital Signs (Past 12 Hours) Vital Signs Temp Pulse Pulse Resp BP Pulse Ox 03/04/22 15:40 36.3 C L 76 18 114/61 100 03/04/22 10:50 36.7 C 66 16 92/62 L 100 03/04/22 07:26 87 PG Care Time/CCT Total # of Minutes Spent Total Time Spent with Patient: Total time spent is greater than 50% in coordination of care (as documented) at patient's floor/unit and/or counseling patient: Coding Level of Care Code 45702 Subseq Hosp Care Lvl 3 Diagnoses Sepsis A41.9 Elevated liver enzymes R74.8 Anemia D64.9 Squamous cell carcinoma Acute bilateral knee pain M25.561; M25.562 Hypoxia R09.02 NICM (nonischemic cardiomyopathy) I42.8 CKD (chronic kidney disease) stage 3, GFR 30-59 ml/min N18.3 Chronic systolic heart failure I50.22 AAA (abdominal aortic aneurysm) I71.4 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
[2022-03-04] MEDS: RIVAROXABAN 20 MG TAB PO SCH (21:01)
[2022-03-04] MEDS: oxyCODONE HCL IR 5 MG TAB (IMMEDIATE RELEASE) PO PRN (21:01)
[2022-03-04] MEDS: ATORVASTATIN 40 MG TAB PO SCH (22:19)
[2022-03-05] MEDS: PANTOprazole 40 MG TAB PO SCH (05:56)
[2022-03-05] MEDS: DOCUSATE SODIUM/SENNA 50/8.6MG TAB PO SCH (08:38)
[2022-03-05] MEDS: FOLIC ACID 1 MG TAB PO SCH (08:38)
[2022-03-05] MEDS: METOPROLOL SUCC 50MG EXT REL TAB PO SCH ×2 (08:38→21:04)
[2022-03-05] MEDS: predniSONE 20 MG TAB PO SCH (08:38)
[2022-03-05] MEDS: CETIRIZINE HCL 10 MG TABLET PO SCH (08:39)
[2022-03-05] MEDS: CYANOCOBALAMIN (B-12) 500 MCG TABLET PO SCH (08:39)
[2022-03-05] MEDS: SPIRONOLACTONE 12.5 MG TAB PO SCH (08:39)
[2022-03-05] MEDS: FUROSEMIDE 40 MG TAB PO SCH (08:39)
--- NOTE | 2022-03-05 15:50 | Discharge Summary ---
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 Patient comes to the EMD today for complaints of continued fatigue, bilateral knee and hip pain that has been ongoing since his chemotherapy induction started on 02/02/22. The patient has not received any further chemotherapy at this time secondary to his continued fatigue. The patient has been having a continuing downtrending of his hemoglobin since January and following induction chemo was down to 8.8. Today he is noted to be at 7.9. The patient also noted to have leukocytosis as well as acute elevation of his liver enzymes and INR up to 1.4 as well as elevated HScTNI. Family reports periods of rigors and chills at home that gotten worse over the past 3 days. Patient has poor recall of this. Also endorsing dark urine at home with one episode of hematuria reported last week, but has not had anymore. He endorses having a cat that is outside. He has only been outside to go to appointments- will also send anaplasmosis as well as lyme. For his knee pain, he was seen in the EMD on 02/21 and had imaging of his knees which did reveal soft tissue swelling and joint effusion. He has limited range of flexion with these secondary to pain. The joints are not red or warm. For his HGB levels the patient denies any change in stools or blood in the toilet or on the toilet paper, his stools have been formed and brown in color, denies any nausea or vomiting and is without epigastric pain with palpation or with eating. His WBC count on review from his oncologist office was with WBC of 10.35(02/23) today he is noted at 17.32 and 9 on 02/21. In the EMD the patient had routine labs drawn, CXR and ECG. His ECG did not show any ST segment changes. He was give morphine for his joint pain and the hospitalist service was consulted for admission. With his drop in HGB and INR of 1.[address] of the abdomen and Plavix to evaluate for bleeding. PCT returned at 2.2 will obtain blood cultures and start patient on Zosyn and Azithromycin for possible pulmonary source. Awaiting urine sample as well. As he is symptomatic with fatigue, dyspnea and elevation of his HScTNI as well as other organ dysfunction will type and cross and transfuse unit of PRBC. Continue to replete his Magnesium. Obtain Doppler of his liver as well with elevation of his LFTs rule out thrombus(side effect of Gemcitabine). Will await his culture results. Will Hold his Xarelto until INR ~1.2 and no evidence of bleeding. Overall has been doing poor since his induction chemo and now with multiple lab derangements and evidence of infection with organ dysfunction. Admit to medical telemetry and f ollow progression, and cardiac function in light of Gemcitabine and Carboplatin therapy. Patient gets his oncological care at [facility] [place], follows with pulmonary at [facility], Cardiology at [facility]. Principal Diagnosis Complications of chemotherapy, rule out sepsis Acute gouty attack Discharge Exam PHYSICAL EXAM: General: awake, alert, pale and fatigued appearing Head: Normocephalic, atraumatic ENT: PERRLA, EOMI, no pharyngeal exudate, mucous membranes dry Neuro: AAO x 3, speech clear and appropriate, strength intact bilaterally 5/5, sensation intact and equal all extremities and dermatomes, no pronator drift Chest: equal rise and fall of the chest, no accessory muscle use, no heaves or thrills, scattered crackles throughout bilateral lung prater Cardiac: Regular rate and rhythm, telemetry reviewed, skin warm dry, cap refill <3 seconds, peripheral pulses +2 no JVD, no murmur, + 2 edema to bilateral lower extremity feet and mid woods GI: NABS x 4 quadrants, soft, nontender to palpation, no rebound, guarding or tenderness : Spontaneously voiding, no pain, no CVA tenderness, Extremities: Normal inspection, no peripheral edema or erythema, calfs nontender to palpation Psych: Normal mood and affect Skin: no rash or erythema, not jaundiced Constitutional WD/WN, vitals as above Eyes EOM intact bilaterally; no conjunctival abnormality ENMT external ear and nose normal, oropharynx normal Neck trachea midline, no thyromegaly normal visual inspection Respiratory normal respiratory effort, lungs clear to auscultation no respiratory distress Cardiovascular RRR, no murmur, no edema Gastrointestinal (Abdomen) Inspection/Auscultation: abdomen normal to inspection; abdomen not distended Percussion/Palpation: abdomen soft; abdomen nontender, no guarding and abdomen not rigid Musculoskeletal no cyanosis or clubbing, extremities motor strength 5/5 Skin no rashes, warm and dry Neurologic moves all extremities and awake Psychiatric Orientation: alert, oriented to person and cooperative Discharge Data Allergies Allergy/AdvReac Type Severity Reaction Status Date / Time diphtheria toxoid,fluid Allergy Severe CONVULSIONS--HORSE Verified 03/01/22 15:11 SERUM BASE tetanus toxoid, adsorbed Allergy Severe CONVULSIONS--HORSE Verified 03/01/22 15:11 SERUM BASE Consultations 03/01/22 14:45 ED Decision to Admit Stat 03/03/22 09:30 Consult Orthopedic Surgery Routine Ordered Studies 03/01/22 16:03 CT abd pelvis wo con Stat 03/02/22 15:46 US duplex portal hepatic veins Urgent Hospital Course (1) Sepsis: -Patient admitted to the hospital to rule out sepsis -Presented to hospital with generalized weakness bilateral arthritis, chest x- ray is clear, CT of abdomen is unremarkable, urine is unremarkable, Patient has been diagnosed with squamous cell carcinoma of the lung status post with Gemcitabine and neehyieonnh-8-2-22, -She presented to the hospital with generalized weakness bilateral knee hip pain after he was started on chemo induction on 02/02/2022 -He has a history of multiple comorbidities including NICM, 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 The patient has been having a continuing downtrending of his hemoglobin since January and following induction chemo was down to 8.8. At the ER was 7.9. The patient also noted to have leukocytosis as well as acute elevation of his liver enzymes and INR up to 1.4 as well as elevated HScTNI. - Family reports periods of rigors and chills at home that gotten worse over the past 3 days -Doubt the symptoms were secondary to sepsis all culture came back negative, imaging studies did not show evidence of ongoing infectious process, most likely all of the symptoms were consequences of chemotherapy and resolved upon admission to the hospital -He has a history of gout disease and complaining of bilateral knee pain to the point that he cannot ambulate. -The patient is status post joint aspiration, with culture negative, the second was about 50,000 white cells, synovial fluid was positive for crystals it was monosodium urate and initiate crystals with GENITOURINARY: No pain with or increased frequency of urination, no blood in the urine, no flank pain. Birefringence -Started on peritoneal significantly improved -Consulted with Ortho (2) Gout: The plan as mentioned above (3) Leukocytosis: The patient had persistent leukocytosis since the beginning of December possibly secondary to malignancy, for now just monitor, does not seem there is any ongoing infectious process, Dr. Petersen is his oncologist that he follow-up with (4) Elevated liver enzymes: Elevated AST/ALT/ ALK PO4 and elevated INR -Mildly elevated, possibly related to recent chemotherapy lung cancer -The findings are not new and has been there since the beginning of December - Normal bilirubin and without jaundice - CT scan without any evidence of pneumatosis gallbladder normal - Liver ultrasound with Doppler evaluate for hepatic thrombus (side effect of chemo) - Negative. - Anaplasmosis negative via smear - (5) Anemia: Chronically down trending HGB over past 2 months- does not endorse GI loss - No retroperitoneal bleed noted on CT abd/pelvis - Transfuse 1 unit PRBC to get > 8 - continue to support organ dysfunction - symptomatic with dyspnea and fatigue - CBC in morning - RBC 2.65, normocytic, normochromic - Noted thrombocytosis at 598 -Resume Xarelto (6) Squamous cell carcinoma: Bronchoscopy evaluation by Curly for lymph node biopsy and right middle lobe biopsy - reported as non-small cell carcinoma and right middle lobe with squamous cell carcinoma - Started chemotherapy with Gemcitabine and carboplatin -Spoke with Dr. Petersen his oncologist he will follow with the patient at [facility], [facility] needs to call the office in coming week to make an appointment to continue his chemo (7) Acute bilateral knee pain: Patient has history of gout, plan as mentioned above (8) Hypoxia: Back to baseline (9) NICM (nonischemic cardiomyopathy): Remains on diuretic therapy and Entresto- dose was reduced in December Previous ECHo 01/18- EF 40-45% - resume Entresto - Continue with Lasix and Aldactone pending hemodynamics - diurese following PRBC (10) CKD (chronic kidney disease) stage 3, GFR 30-59 ml/min: Acute kidney injury on chronic kidney disease. Improved kindest (11) Chronic systolic heart failure: Plan as mentioned above (12) AAA (abdominal aortic aneurysm): stable- No change in a 3 cm infrarenal abdominal aortic aneurysm. 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 ILD flair ahd CHF exacerbation - remains whether NSIP or UIP - was to have PFTs completed in December- but does not look as this was completed Total Time Total Time Spent Total Time Spent (In Minutes): 45 Discharge Plan Discharge Items Patient Disposition: Transfer Inpatient Rehab Fac Reason For Visit: WEAKNESS, LOW HGB, KNEE PAIN AND HIP PAIN Discharge Diagnosis: Acute gout arthritis Activity: Resume your previous activity Lifting: Gradually increase as tolerated Sexual Activity: When tolerated Non-emergency contact: Oncologist Call non-emergency contact if: you have any medication questions and your symptoms worsen Follow-up/Referrals: Aiden Burroughs MD [Primary Care Provider] - Johnnie Petersen MD [Surgeon] - (History of lung cancer) Diet: Heart Healthy Addtl Attending Provider Instructions: The patient is to follow-up with Dr. Petersen, his oncologist, to follow continue Pending Studies at Discharge: No Stand-Alone Forms: My [facility] Skilled Items Patient informed of condition?: Yes DNR: No Discharge Level of Care: Skilled Communicable Disease: No Discharge Prognosis: Stable Lines: None Urinary Catheter: No Medications and DC Order Prescriptions: New prednisone 20 mg Tablet 40 mg PO DAILY Qty: 15 RF: 0 Continued folic acid 1 mg tablet 1 mg PO QDL RF: 0 metoprolol succinate 50 mg tablet extended release 24 hr 50 mg PO BID RF: 0 cetirizine [Zyrtec] 10 mg tablet 5 mg PO QAM RF: 0 atorvastatin 40 mg Tablet 40 mg PO HS RF: 0 cyanocobalamin (vitamin B-12) [Vitamin B-12] 1,000 mcg Tablet 1,000 mcg PO QDL RF: 0 cholecalciferol (vitamin D3) [Vitamin D3] 25 mcg (1,000 unit) Capsule 2,000 unit PO QDL RF: 0 spironolactone 25 mg tablet 12.5 mg PO QAM RF: 0 pantoprazole 20 mg tablet,delayed release (DR/EC) 20 mg PO DAILYBB RF: 0 albuterol sulfate 90 mcg/actuation HFA aerosol inhaler 2 inh inhalation Q4H PRN (Reason: shortness of breath or wheezing) Qty: 8.5 RF: 0 Xarelto 15 mg Tablet 15 mg PO HS Qty: 30 RF: 0 furosemide 40 mg tablet 40 mg PO QAM Qty: 0 RF: 0 ondansetron HCl 8 mg tablet 8 mg PO Q8H PRN (Reason: Nausea) RF: 0 prochlorperazine maleate 10 mg tablet 10 mg PO Q6H PRN (Reason: Nausea) RF: 0 oxycodone 5 mg tablet 5 mg PO Q12H PRN (Reason: Pain) RF: 0 Discharge Orders: Discharge Order (Routine); Ordered 03/06/22 Ordered By: Abraham Hayden Admission Data Admit Date/Time: 03/01/22 15:55 Attending Provider: Abraham Hayden Admit Provider: Remy Asher Primary Care Provider: Aiden Burroughs Other Providers: Shamir Olivas ; Remy Asher ; Aiden Lamb ; [facility] Coding Level of Care Code D/C DAY MANAGEMENT >30 MINS Diagnoses Sepsis A41.9 Leukocytosis D72.829 Leukocytosis type: unspecified Elevated liver enzymes R74.8 Anemia D64.9 Squamous cell carcinoma Acute bilateral knee pain M25.561; M25.562 Hypoxia R09.02 NICM (nonischemic cardiomyopathy) I42.8 CKD (chronic kidney disease) stage 3, GFR 30-59 ml/min N18.3 Chronic systolic heart failure I50.22 AAA (abdominal aortic aneurysm) I71.4 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
[2022-03-05 18:06] LABS: Fungitell (1-3)-B-D-Glucan <31 pg/mL
[2022-03-05] MEDS: RIVAROXABAN 20 MG TAB PO SCH (21:04)
[2022-03-05] MEDS: ATORVASTATIN 40 MG TAB PO SCH (21:04)
[2022-03-05] MEDS: oxyCODONE HCL IR 5 MG TAB (IMMEDIATE RELEASE) PO PRN (21:04)
[2022-03-06] MEDS: PANTOprazole 40 MG TAB PO SCH (06:02)
[2022-03-06] MEDS: CETIRIZINE HCL 10 MG TABLET PO SCH (08:00)
[2022-03-06] MEDS: SPIRONOLACTONE 12.5 MG TAB PO SCH (08:00)
[2022-03-06] MEDS: METOPROLOL SUCC 50MG EXT REL TAB PO SCH (08:00)
[2022-03-06] MEDS: DOCUSATE SODIUM/SENNA 50/8.6MG TAB PO SCH (08:00)
[2022-03-06] MEDS: predniSONE 20 MG TAB PO SCH (08:00)
[2022-03-06] MEDS: FUROSEMIDE 40 MG TAB PO SCH (08:00)
[2022-03-06] MEDS: CYANOCOBALAMIN (B-12) 500 MCG TABLET PO SCH (08:01)
[2022-03-06] MEDS: FOLIC ACID 1 MG TAB PO SCH (08:01)
--- NOTE | 2022-04-14 08:08 | Coding Query ---
To promote full compliance with coding requirements relating to patient care, provider participation is requested in all cases of stock pitcher uncertainty. Please assist us with the question(s) below: Coding Question(s): On D/C summary it states "doubt the symptoms were secondary to sepsis. Please clarify if Sepsis was ruled out. Physician's Response(s): SEPSIS ( ) Diagnosed and POA ( ) Diagnosed and not POA ( ) Ruled out ( ) Other (please specify) MTDD
--- NOTE | 2022-04-14 08:16 | Coding Query ---
CODING QUERY To promote full compliance with coding requirements relating to patient care, provider participation is requested in all cases of ict developer uncertainty. Please assist us with the question(s) below: Coding Question(s): Please clarify if gout was: Primary ( ) Secondary ( ) Idiopathic ( ) Physician's Response(s): Thank you Monserrat Diaz Principal Diagnosis: "that condition established after study, to be chiefly responsible for occasioning the admission of the patient to the hospital for care." Co-Existing Principal Diagnosis: "when two or more diagnoses equally meet the criteria for principal diagnosis as determined by the circumstances of admission, diagnostic work up, and/or therapy provided, and the Alphabetic Index, Tabular List, or another coding guideline does not provide sequencing direction, any one of the diagnoses may be sequenced first." "When the physician has documented what appears to be a current diagnosis in the body of the record, but has not included the diagnosis in the final diagnostic statement, the physician should be asked whether the diagnosis should be added." (Source Coding Clinic 2 QTR90. p3-4) PERFECTO
--- NOTE | 2022-04-25 13:54 | Coding Query ---
should be answered by the attending who took care of the patient \\ CODING QUERY To promote full compliance with coding requirements relating to patient care, provider participation is requested in all cases of glaze sprayer uncertainty. Please assist us with the question(s) below: Coding Question(s): Please clarify if gout was Primary ( ) Secondary ( ) Idiopathic ( ) Physician's Response(s): Thank you Monserrat Diaz Principal Diagnosis: "that condition established after study, to be chiefly responsible for occasioning the admission of the patient to the hospital for care." Co-Existing Principal Diagnosis: "when two or more diagnoses equally meet the criteria for principal diagnosis as determined by the circumstances of admission, diagnostic work up, and/or therapy provided, and the Alphabetic Index, Tabular List, or another coding guideline does not provide sequencing direction, any one of the diagnoses may be sequenced first." "When the physician has documented what appears to be a current diagnosis in the body of the record, but has not included the diagnosis in the final diagnostic statement, the physician should be asked whether the diagnosis should be added." ([facility] 2 QTR90. p3-4) PERFECTO
--- NOTE | 2022-04-25 13:59 | Coding Query ---
should be answered by the attending who took care of the patient CODING QUERY To promote full compliance with coding requirements relating to patient care, provider participation is requested in all cases of inspection and testing supervisor uncertainty. Please assist us with the question(s) below: Coding Question(s): On D/C summary it states "doubt the symptoms were secondary to sepsis. Please clarify if sepsis was ruled out. Physician's Response(s): SEPSIS ( ) Diagnosed and POA ( ) Diagnosed and not POA ( ) Ruled Out ( ) Other ( please specify) Thank you Monserrat Diaz Principal Diagnosis: "that condition established after study, to be chiefly responsible for occasioning the admission of the patient to the hospital for care." Co-Existing Principal Diagnosis: "when two or more diagnoses equally meet the criteria for principal diagnosis as determined by the circumstances of admission, diagnostic work up, and/or therapy provided, and the Alphabetic Index, Tabular List, or another coding guideline does not provide sequencing direction, any one of the diagnoses may be sequenced first." "When the physician has documented what appears to be a current diagnosis in the body of the record, but has not included the diagnosis in the final diagnostic statement, the physician should be asked whether the diagnosis should be added." ([facility] 2 QTR90. p3-4) PERFECTO
--- NOTE | 2022-05-11 07:55 | Coding Query ---
To promote full compliance with coding requirements relating to patient care, provider participation is requested in all cases of events and promotions assistant uncertainty. Please assist us with the question(s) below: Dr Asher, Can you please help assist with this older account. It has been sent to Dr. Hayden but he hasnt answered and wont be back to the hospital for months. Your assistance is appreciated. Coding Question(s): On D/C summary it states "doubt the symptoms were secondary to sepsis" Please clarify if ruled out. Physician's Response(s): SEPSIS ( x ) Diagnosed and POA ( ) Diagnosed and not POA ( ) Ruled out ( ) Other (please specify) MTDD
--- NOTE | 2022-05-11 07:58 | Coding Query ---
CODING QUERY To promote full compliance with coding requirements relating to patient care, provider participation is requested in all cases of medical biller coder uncertainty. Please assist us with the question(s) below: Dr. Asher Can you please help assist with this query. Dr. Hayden wont be back in to the hospital for a couple months. Coding Question(s): To promote full compliance with coding requirements relating to patient care, provider participation is requested in all cases of medical biller coder uncertainty. Please assist us with the question(s) below: Coding Question(s): Please clarify if gout was Primary ( ) Secondary ( ) Idiopathic ( x ) Physician's Response(s): Thank you Monserrat Diaz Principal Diagnosis: "that condition established after study, to be chiefly responsible for occasioning the admission of the patient to the hospital for care." Co-Existing Principal Diagnosis: "when two or more diagnoses equally meet the criteria for principal diagnosis as determined by the circumstances of admission, diagnostic work up, and/or therapy provided, and the Alphabetic Index, Tabular List, or another coding guideline does not provide sequencing direction, any one of the diagnoses may be sequenced first." "When the physician has documented what appears to be a current diagnosis in the body of the record, but has not included the diagnosis in the final diagnostic statement, the physician should be asked whether the diagnosis should be added." ([facility] 2 QTR90. p3-4) PERFECTO
== END 2022-03-06 14:10 | DRG 871 ==
LOC: ED 12:37 → 2N 15:55 → SUATTDRO 15:55 → 2N 18:23
DX: Z86.718 Personal history of other venous thrombosis and embolism; I42.8 Other cardiomyopathies; D72.829 Elevated white blood cell count, unspecified; J84.9 Interstitial pulmonary disease, unspecified; A41.9 Sepsis, unspecified organism; M10.062 Idiopathic gout, left knee; D64.9 Anemia, unspecified; Z95.0 Presence of cardiac pacemaker; Z87.891 Personal history of nicotine dependence; M25.461 Effusion, right knee; C34.90 Malignant neoplasm of unspecified part of unspecified bronchus or lung; Z79.01 Long term (current) use of anticoagulants; Z86.711 Personal history of pulmonary embolism; H91.93 Unspecified hearing loss, bilateral; I50.23 Acute on chronic systolic (congestive) heart failure; N18.30 Chronic kidney disease, stage 3 unspecified; M10.061 Idiopathic gout, right knee; M25.462 Effusion, left knee; Z87.01 Personal history of pneumonia (recurrent); Z88.7 Allergy status to serum and vaccine; Z79.899 Other long term (current) drug therapy; N17.9 Acute kidney failure, unspecified; Z87.11 Personal history of peptic ulcer disease

== ENCOUNTER 2022-05-26 11:40 | Inpatient (IN) ==
[2022-05-26 12:21] LABS: INR 1.8 (0.9-1.1); Partial Thromboplastin Ratio 1.5; Partial Thromboplastin Time 40.5 Seconds (21.0-31.0); Prothrombin Time 18.5 Seconds (9.0-12.0)
[2022-05-26 12:39] LABS: Troponin I High Sensitivity 15.8 pg/ml (0-20)
[2022-05-26 12:44] LABS: Hematocrit (blood only) 19.1 % (40.1-51.0); Hemoglobin 6.1 g/dl (14.0-18.0); Mean Corpuscular Hemoglobin 33.9 pg (25.0-34.0); Mean Corpuscular Hgb Conc 31.9 g/dL (32.0-36.0); Mean Corpuscular Volume 106.1 fL (80.0-100.0); Mean Platelet Volume 10.8 fL (9.4-12.4); Nucleated RBC # (auto) 0.34 K/uL (0-0); Nucleated RBC % (auto) 7.7 %; Platelet Count 416 K/uL (130-400); RDW Coefficient of Variation 21.7 % (11.5-14.5); White Blood Count 4.39 K/ul (4.8-10.8)
[2022-05-26 12:46] LABS: Anisocytosis Present; Basophils # (auto) 0.02 K/uL (0-0.2); Basophils % (auto) 0.5 %; Eosinophils # (auto) 0.04 K/uL (0-0.50); Eosinophils % (auto) 0.9 %; Immature Granulocytes # (auto) 0.09 K/uL (0.00-0.02); Immature Granulocytes % (auto) 2.1 %; Lymphocytes # (auto) 0.77 K/uL (1.2-3.4); Lymphocytes % (auto) 17.5 %; Macrocytosis Present; Monocytes # (auto) 0.97 K/uL (0.24-0.82); Monocytes % (auto) 22.1 %; Neutrophils % (auto) 56.9 %; Ovalocytes 1+; Polychromasia 1+
[2022-05-26 12:53] LABS: Anion Gap 15 (3-11); BUN Creatinine Ratio 14.8 (10-20); Blood Urea Nitrogen 25 mg/dl (6-23); Calcium 8.9 mg/dl (8.5-10.1); Carbon Dioxide 25 mmol/L (21-32); Chloride 98 mmol/L (98-107); Est GFR (African American) 45.7 ml/min; Est GFR (Non-African American) 39.4 ml/min; Glucose 114 mg/dl (70-99(Fasting)); Potassium 4.3 mmol/L (3.5-5.1); Sodium 138 mmol/L (136-145)
[2022-05-26] MEDS ORDERED: SODIUM CHLORIDE 0.9% 250 ML IV PRN (12:58)
[2022-05-26 13:00] LABS: Alanine Aminotransferase 33 U/L (7-52); Albumin Level 3.9 gm/dl (3.4-5.0); Alkaline Phosphatase 176 U/L (34-104); Aspartate Aminotransferase 28 U/L (13-39); Bilirubin,Total 0.7 mg/dl (0.2-1.0); Magnesium 0.9 mg/dl (1.7-2.4); Total Protein 7.9 gm/dl (6.0-8.3)
[2022-05-26] MEDS ORDERED: MAGNESIUM SULFATE / D5W 1 GM/100 ML BAG IV STA (13:21)
--- NOTE | 2022-05-26 13:49 | XRay Report ---
XR chest 1V portable CLINICAL HISTORY: SOB. COMPARISON STUDY: 03/01/2022 and 12/30/2021 TECHNIQUE: 1 view of the chest FINDINGS: Single frontal view of the chest demonstrates the heart to again be enlarged status post pacer placem ent. Compared to the previous examinations, prominence of the interstitial markings is again seen at the lung bases characteristic of chronic interstitial lung disease. This is essentially unchanged. Th e lungs are clear of acute alveolar opacities. There is no evidence for pleural effusion. There is no evidence for vascular congestion. There is no acute osseous pathology. IMPRESSION: 1. Compared to the previous studies, there is again evidence for interstitial fibrotic changes at bot h lung bases. 2. Cardiomegaly, pacer. Otherwise no acute chest disease. ACT 112: Negative or not required by law. Electronically signed by: William Castaneda M.D. 05/26/2022 1:47 PM
--- NOTE | 2022-05-26 14:06 | History & Physical Report ---
Date of Service May 26, 2022 Assessment & Plan (1) Symptomatic anemia: (2) Hypotension: Plan: This is a 71yo M with a PMH of lung cancer with mets to liver on home O2 receiving chemo, ILD, CKD III, iron deficiency anemia, chronic systolic heart failure, paroxysmal atrial fibrillation, history of DVT/PE on anticoagulation and other medical problems listed below who presents from [facility] clinic with hypotension and symptomatic anemia. Hgb down from baseline 7-8 to 6 - transfusing 1 of 2u prbcs in ER Initial hypotension has resolved Repeat H&H this evening Receiving Aranesp for chronic anemia every 3 weeks No maura melena or hematochezia - obtaining FOBT, IV PPI, routine GI consult for possible GI bleed, NPO @ [place] Holding Xarelto for now (3) Squamous cell carcinoma lung: (4) Chronic respiratory failure with hypoxia: Plan: Follows with Dr. Petersen of [facility] onc and was seen in follow up earlier today. Chemo regimen includes gemcitabine and the carboplatin chemotherapy which was started in December 2021 Continue 2L NC O2 (5) Chronic systolic heart failure: Plan: Appears euvolemic on admission Echo from December 2021 with reduced EF 45-50%, aortic sclerosis Giving 40mg IV Lasix in between units of blood - may need additional diuresis Monitor volume status closely. Strict I&Os, daily weights, low sodium diet (6) Hypomagnesemia: Plan: Initial mg 0.9 - replacing. 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 Continue supplemental Oxygen (8) CKD (chronic kidney disease), stage III: Plan: Cr at baseline ~1.7. Continue to monitor with daily BMP (9) CAD (coronary artery disease): Plan: Stable. Continue statin, Toprol (10) Deep vein thrombosis: (11) long-term (current) use of anticoagulants: Plan: H/o DVT/PE in 2016. Holding Xarelto for now in setting of anemia, concern for GI bleed (12) Paroxysmal atrial fibrillation: Plan: Continue Toprol. Holding ac for now as above DVT Ppx: Holding Xarelto for now in setting of possible bleed. SCDs. Code status: FULL PCP: [facility] Dispo: Admitting to PCU Patient seen in collaboration with Dr. Berrios. Please see addendum. History of Present Illness Primary Care Provider: Chandrakant Herron MD This is a 71yo M with a PMH of lung cancer with mets to liver on home O2 receiving chemo, ILD, CKD III, iron deficiency anemia, chronic systolic heart failure, paroxysmal atrial fibrillation, history of DVT/PE on anticoagulation and other medical problems listed below who presents from heme onc clinic with hypotension and symptomatic anemia. Follows with Dr. Petersen of heme onc and was seen in follow up earlier today. Chemo regimen includes gemcitabine and the carboplatin chemotherapy which was started in December 2021. At heme onc appointment, patient was found to be hypotensive and OP lab work revealed hgb of 5.9 (baseline 7-8). Sent to ED for further treatment and evaluation. Family at bedside states that patient has seemed weaker than usual and more short of breath with exertion. Is on 2 L nasal cannula oxygen at baseline. Patient denies any lightheadedness, chest pain or palpitations. No fever, chills, congestion, wheezing, nausea, vomiting, abdominal pain, dysuria, diarrhea or constipation. No hematochezia or melena lately. No change to bowel habits. Has h/o GI bleeding in 2019 but GI work up with EGD and colonoscopy was negative for active bleeding or lesions other than non bleeding duodenal ulcer and he required 2 U PRBC at that time. Denies epistaxis. Weight is 224 today (recent baseline ~ 220, per ). He is on anticoagulation for history of DVT/PE in 2016. Longstanding anemia with baseline hgb 7-8. Recently started on Aranesp for anemia and receives every 3 weeks. Allergies Allergy/AdvReac Type Severity Reaction Status Date / Time diphtheria toxoid,fluid Allergy Severe CONVULSIONS--HORSE Verified 05/10/22 14:50 SERUM BASE tetanus toxoid, adsorbed Allergy Severe CONVULSIONS--HORSE Verified 05/10/22 14:50 SERUM BASE Home Medications Medication Instructions Recorded Confirmed Type atorvastatin 40 mg tablet 40 mg PO HS 10/29/19 05/26/22 History cholecalciferol (vitamin D3) 25 2,000 unit PO QDL 11/20/19 05/26/22 History mcg (1,000 unit) capsule (Vitamin D3) folic acid 1 mg tablet 1 mg PO QDL 06/08/20 05/26/22 History metoprolol succinate 50 mg 50 mg PO BID 01/04/21 05/26/22 History tablet,extended release 24 hr cetirizine 10 mg tablet (Zyrtec) 5 mg PO QAM 08/16/21 05/26/22 History albuterol sulfate 90 mcg/actuation 2 inh inhalation Q4H PRN shortness 09/21/21 05/26/22 Rx aerosol inhaler of breath or wheezing #8.5 grams furosemide 40 mg tablet 40 mg PO QAM #0 tabs 12/31/21 05/26/22 Rx rivaroxaban 15 mg tablet (Xarelto) 15 mg PO HS #30 tabs 12/31/21 05/26/22 Rx ondansetron HCl 8 mg tablet 8 mg PO Q8H PRN Nausea 02/21/22 05/26/22 History prochlorperazine maleate 10 mg 10 mg PO Q6H PRN Nausea 02/21/22 05/26/22 History tablet pantoprazole 20 mg tablet,delayed 20 mg PO DAILY #90 tabs 03/18/22 05/26/22 Rx release allopurinol 100 mg tablet 100 mg PO QAM 05/26/22 05/26/22 History cyanocobalamin (vitamin B-12) 100 100 mcg PO DAILY 05/26/22 05/26/22 History mcg tablet (Vitamin B-12) Past Med/Surg History Medical History (Updated 05/26/22 @ 15:08 by Anna Hudson PA-C) Acute GI bleeding Atrial fibrillation dx 2016 - follows w/ Dr. Trejo Chronic systolic heart failure CKD (chronic kidney disease), stage III Congestive heart failure Deep vein thrombosis RLE - 2016 dx while hospitalized w/ pneumonia Duodenal ulcer Hearing deficit BL [facility] Hematoma of left lower extremity Osteoarthritis Pneumonia Pulmonary embolism 2016 - dx while hospitalized w/ pneumonia - on xarelto Surgical History History of appendectomy History of cardiac catheterization 2016 - [place] - no stents History of cardioversion 11/08/2016 History of carpal tunnel release of both wrists History of cataract surgery History of colonoscopy History of esophagogastroduodenoscopy (EGD) History of evacuation of hematoma LLE History of shoulder surgery Left 2004 History of tonsillectomy Presence of combination internal cardiac defibrillator (ICD) and pacemaker placed 2016 - [facility] - last checked 1 year ago - follows w/ dr. yeh Family History Mother Diabetes Grandfather (Paternal) No problems noted. Father Lymphoma Grandfather (Maternal) Myocardial infarction Other No family history of adverse response to anesthesia Denies family history of Ovarian cancer Prostate cancer Heart disease Breast cancer Colorectal cancer Social History Smoking Status: Former smoker Tobacco Type: Cigarettes Age Quit Using Tobacco: 53; Cigarettes Per Day: 1 pack a day; Second Hand Exposure: No; Hx Alcohol Use: No Hx Substance Use: No Preferred Language: Algerian Communication Ability: Effective Visual Impairment: Limited Hearing Ability: Use of Hearing Aid Cork Insulation Setter Required: No Beliefs That Will Affect Care: None marital status: Current Living Situation: Spouse current occupational status: retired 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 Physical Exam Physical Exam: General Appearance: WD/WN, vitals as above, NAD, sitting up in bed, pleasant, pale Head: normocephalic, atraumatic Eyes: normal inspection, PERRL, conjunctivae normal, anicteric sclerae ENT: external ear and nose normal, oropharynx normal Neck: normal visual inspection, trachea midline, no thyromegaly Respiratory: normal respiratory effort, bibasilar rales, no wheeze or rhonchi. No accessory muscle use Cardiovascular: regular rate, rhythm, no murmur, normal peripheral pulses, no BLE edema. Vessels: no JVD Chest: normal inspection of chest Abdomen/GI: normal bowel sounds, soft, nontender, no hepatosplenomegaly Extremities/Musculoskeletal: no cyanosis or clubbing, extremities motor strength 5/5 Neurologic: PERRL, EOMI, accommodation nl, no face palsy, no dysarthria, CN's II-XI intact bilaterally and moves all extremities Psychiatric: A+Ox3, euthymic affect Skin: no rashes, pale, warm/dry Results & Data Results & Data ([facility]) Vital Signs (Past 12 Hours) Vital Signs Temp Pulse Pulse Resp BP BP Pulse Ox 05/26/22 14:02 36.6 C 87 17 112/65 100 05/26/22 13:00 99 05/26/22 11:47 88 16 107/81 99 05/26/22 12:56 05/26/22 12:56 14 96 05/26/22 11:42 36.1 C L 96 H 26 H 96/52 L 90 O2 Del Method 05/26/22 14:02 05/26/22 13:00 05/26/22 11:47 05/26/22 12:56 Room Air 05/26/22 12:56 05/26/22 11:42 Room Air Laboratory Results Short CBC 05/26/22 Range/Units 11:54 WBC 4.39 L (4.8-10.8) K/ul Hgb 6.1 L* (14.0-18.0) g/dl Hct 19.1 L* (40.1-51.0) % Plt Count 416 H (130-400) K/uL BMP 05/26/22 11:54 Sodium 138 Potassium 4.3 Chloride 98 Carbon Dioxide 25 BUN 25 H Creatinine 1.69 H Glucose 114 H Calcium 8.9 Liver Function 05/26/22 Range/Units 11:54 Total Bilirubin 0.7 (0.2-1.0) mg/dl AST 28 (13-39) U/L ALT 33 (7-52) U/L Alkaline Phosphatase 176 H (34-104) U/L Albumin 3.9 (3.4-5.0) gm/dl Diagnostic Findings Chest X-Ray 05/26/22 11:47 XR chest 1V portable CLINICAL HISTORY: SOB. COMPARISON STUDY: 03/01/2022 and 12/30/2021 TECHNIQUE: 1 view of the chest FINDINGS: Single frontal view of the chest demonstrates the heart to again be enlarged status post pacer placement. Compared to the previous examinations, prominence of the interstitial markings is again seen at the lung bases characteristic of chronic interstitial lung disease. This is essentially unchanged. The lungs are clear of acute alveolar opacities. There is no evidence for pleural effusion. There is no evidence for vascular congestion. There is no acute osseous pathology. IMPRESSION: 1. Compared to the previous studies, there is again evidence for interstitial fibrotic changes at both lung bases. 2. Cardiomegaly, pacer. Otherwise no acute chest disease. ACT 112: Negative or not required by law. Electronically signed by: William Castaneda M.D. 05/26/2022 1:47 PM Supervising Physician Co-Signing Physician Notes Patient was seen and examined independently at bedside. Chart reviewed. Case discussed with Anna Hudson PA-C and agree with the documentation above. In summary, this is a 71 year old male with recently diagnosed squamous cell carcinoma of lung on chemo [id number], chronic systolic CHF/ICM, H/o DVT/PE on xarelto, h/o non bleeding duodenal ulcer 10/2019 presented to the ED from his oncologist's office for lab abnormalities including Hb of 6.1. Patient was supposed to get his 3 week chemo today but was sent to ED for anemia. Baseline Hb of 9-10. Denies any chest pain, shortness of breath, increasing dyspnea, or lightheadedness. Denies any hematemesis or hematochezia or hematuria. Denies any black stools. Denies any NSAIDs intake. Denies any abdominal pain or reflux symptoms. Patient has h/o GI bleeding in 10/2019 but GI work up with EGD and colonoscopy was negative for active bleeding or lesions other than non bleeding duodenal ulcer and he required 2 U PRBC at that time. On exam, afebrile, hemodynamically stable. On chronic Oxygen. AAO, chest clear, heart sounds normal, abd benign, no edema, pallor present. His anemia is likely related to his chemo and cancer but will need to r/o GI bleeding. Getting 2 U PRBC per ED physician. Transfuse slowly over 4 hours with iv lasix in between transfusions to prevent volume overload. Hold xarelto, check FOBT, trend H and H, continue IV PPI, consult GI. Check iron studies, B12, folate and hemolysis studies. and sister at bedside and all questions were answered. Rest as per the note above. (1) Squamous cell carcinoma lung Laterality: unspecified laterality Qualified Code(s): C34.90 - Malignant neoplasm of unspecified part of unspecified bronchus or lung
[2022-05-26] MEDS ORDERED: MAGNESIUM SULFATE / D5W 1 GM/100 ML BAG IV ONE ×3 (14:30→19:01)
[2022-05-26] MEDS ORDERED: FUROSEMIDE 40 MG/4 ML VIAL IV ONE (14:30)
[2022-05-26 16:11] LABS: Reticulocyte % 7.8 % (0.5-2.0); Reticulocytes # 0.14 10^6/uL (0.02-0.10)
--- NOTE | 2022-05-26 17:38 | Emergency Department Note ---
Impression & Plan Severe anemia, Hypomagnesemia ED Provider Note INFORMANT: Patient and family ED PROVIDER(S): Mauro Taveras MD CHIEF COMPLAINT: Abnormal labs PLAN: Disposition: Admitted Condition: Guarded Outpatient prescription management: none Referral: None MEDICAL DECISION MAKING: Patient presented because of abnormal labs. A hemoglobin recheck was performed and his value was found to be 6.1. He had a mildly elevated INR at 1.8. His magnesium was critically low at 0.9 as well. Both the anemia and the hypomagnesemia would explain his feeling weak. Patient was typed and crossed for 2 units and consented to transfusion. He also had IV magnesium administered. Further management will be necessary in the hospital. [facility] Patient was evaluated in the ER admitted for further management Triage Nursing notes reviewed and agree them. Vital Signs: reviewed and remarkable for no significant abnormalities Differential diagnosis: Anemia, GI bleed, complication of chemotherapy, infection, dehydration, metabolic abnormality, hypo/hyperglycemia, electrolyte disturbance, anemia, hy poxia, cardiac sources, intracerebral event, toxicologic, neurologic, as well as other pathologies. Diagnostics interpreted by me: ECG: [none] Cardiac Monitoring:Cardiac monitoring ordered by me: The patient was placed on c ontinuous cardiac monitoring and observed. It revealed a paced rhythm at 87 beats per minute without ectopy or evidence of dysrhythmia. Imaging studies: Chest x-ray. Findings: A chest x-ray was performed and revealed no pneumothorax, effusion, infiltrate, pulmonary edema, free air under the diaphragm, or wide mediastinum. Chronic changes noted. Impression: No acute disease. HPI: The patient is a 71 year old male who presents to the Emergency Room with complaints of low blood counts. This started today after being told by oncology that his hemoglobin was 5.9 and is possibly thought to be from his chemotherapy. The patient has lung cancer. He was directed to the ER by Dr. Petersen's office.. The patient also notes the following associated symptoms, feeling generally weak, pale appearing. The patient has found no relieving factors. Current pain is rated as 0/10. Patient has a history of a blood transfusion from a bleeding ulcer years ago. Denies any new symptoms consistent with the same. Pt denies LOC, headache, fevers, chills, diaphoresis, visual changes, neck pain, chest pain, breathing difficulties, nausea, vomiting, abdominal pain, back pain, melena, hematochezia, hematemesis urinary symptoms, numbness, lymphadenopathy, rash, or other complaints. ROS: See above HPI for pertinent positives & negatives. A total of 10 systems reviewed and were otherwise negative. PAST MEDICAL HISTORY:See Below , PUD, lung cancer, CKD, anticoagulated PAST SURGICAL HISTORY:See Below, FAMILY HISTORY:See Below SOCIAL HISTORY:See Below, HOME MEDICATIONS:See Below ALLERGIES:See Below VITALS:See Below PHYSICAL EXAMINATION: GENERAL: Awake, tired appearing, in no distress HENT: Normocephalic, atraumatic. Oropharynx unremarkable. EYES: Pale conjunctiva. Sclera non-icteric. NECK: Inspection normal. Non-tender. Supple. No nuchal rigidity. FROM. No masses. RESPIRATORY: Clear to auscultation. No wheezes. No rales. Normal respiratory effort. CARDIAC: Normal rate. Normal rhythm. No murmurs. No rubs. Extremities warm and well perfused. Pulses equal. No JVD. GI: Soft, non-distended. No tenderness to palpation. No rebound or guarding. No masses. RECTAL: Deferred. MUSCULOSKELETAL: Atraumatic. Chest examination reveals no tenderness. The back is symmetrical on inspection without obvious abnormality. There is no CVA tenderness to palpation. No joint edema. LOWER EXTREMITIES: Calves are equal size bilaterally and non-tender. No edema. No discoloration. NEURO: Normal sensorium. No sensory or motor deficits noted. SKIN: No rash or jaundice noted. CRITICAL CARE: I have personally spent greater than 31 minutes of critical care time in the direct management of this patient. This includes bedside care, interpretation of diagnostic studies, and testing, discussion with consultants, patient, and family members, and other required patient management activities. These minutes are in excess of all separately billable procedures. Mauro Taveras MD Past Med/Surg History Medical History (Updated 05/26/22 @ 17:38 by Mauro Taveras MD) Acute GI bleeding Atrial fibrillation dx 2016 - follows w/ Dr. Trejo Chronic systolic heart failure CKD (chronic kidney disease), stage III Congestive heart failure Deep vein thrombosis RLE - 2016 dx while hospitalized w/ pneumonia Duodenal ulcer Hearing deficit [facility] Hematoma of left lower extremity Osteoarthritis Pneumonia Pulmonary embolism 2016 - dx while hospitalized w/ pneumonia - on xarelto Surgical History History of appendectomy History of cardiac catheterization 2015 - [place] - no stents History of cardioversion 11/08/2016 History of carpal tunnel release of both wrists History of cataract surgery History of colonoscopy History of esophagogastroduodenoscopy (EGD) History of evacuation of hematoma LLE History of shoulder surgery Left 2005 History of tonsillectomy Presence of combination internal cardiac defibrillator (ICD) and pacemaker placed 2016 - [email or web address] - last checked 1 year ago - follows w/ dr. yeh Family History Mother Diabetes Grandfather (Paternal) No problems noted. Father Lymphoma Grandfather (Maternal) Myocardial infarction Other No family history of adverse response to anesthesia Denies family history of Ovarian cancer Prostate cancer Heart disease Breast cancer Colorectal cancer Social History Smoking Status: Former smoker Tobacco Type: Cigarettes Age Quit Using Tobacco: 53; Cigarettes Per Day: 1 pack a day; Second Hand Exposure: No; Hx Alcohol Use: No Hx Substance Use: No Preferred Language: Czech Communication Ability: Effective Visual Impairment: Limited Hearing Ability: Use of Hearing Aid Optical Glass Etcher Required: No Beliefs That Will Affect Care: None marital status: Current Living Situation: Spouse current occupational status: retired 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 How many Children do You have: 0 Feels Safe at Home: Yes Childhood Exposure to Second-Hand Smoke: Yes (dad did ) caffeine: Yes (cup of coffee in morning ) Dental Care, Regularly: No Physical Activity Frequency: Does not Exercise Seatbelt Use: always Sunscreen Use: No (doesn't go out in sun ) Assistive Devices: Cane, Oxygen - at Night and Wheelchair Allergies Allergies Allergy/AdvReac Type Severity Reaction Status Date / Time diphtheria toxoid,fluid Allergy Severe CONVULSIONS--HORSE Verified 05/10/22 14:50 SERUM BASE tetanus toxoid, adsorbed Allergy Severe CONVULSIONS--HORSE Verified 05/10/22 14:50 SERUM BASE Home Meds Home Medications Medication Instructions Recorded Confirmed atorvastatin 40 mg tablet 40 mg PO HS 10/29/19 05/26/22 cholecalciferol (vitamin D3) 25 2,000 unit PO QDL 11/20/19 05/26/22 mcg (1,000 unit) capsule (Vitamin D3) folic acid 1 mg tablet 1 mg PO QDL 06/08/20 05/26/22 metoprolol succinate 50 mg 50 mg PO BID 01/04/21 05/26/22 tablet,extended release 24 hr cetirizine 10 mg tablet (Zyrtec) 5 mg PO QAM 08/16/21 05/26/22 ondansetron HCl 8 mg tablet 8 mg PO Q8H PRN Nausea 02/21/22 05/26/22 prochlorperazine maleate 10 mg 10 mg PO Q6H PRN Nausea 02/21/22 05/26/22 tablet allopurinol 100 mg tablet 100 mg PO QAM 05/26/22 05/26/22 cyanocobalamin (vitamin B-12) 100 100 mcg PO DAILY 05/26/22 05/26/22 mcg tablet (Vitamin B-12) Previous Rx's Medication Instructions Recorded albuterol sulfate 90 mcg/actuation 2 inh inhalation Q4H PRN shortness 09/21/21 aerosol inhaler of breath or wheezing #8.5 grams furosemide 40 mg tablet 40 mg PO QAM #0 tabs 12/31/21 rivaroxaban 15 mg tablet (Xarelto) 15 mg PO HS #30 tabs 12/31/21 pantoprazole 20 mg tablet,delayed 20 mg PO DAILY #90 tabs 03/18/22 release Results & Data (ED) Vital Signs Vital Signs - 24 hr 05/26/22 11:42 05/26/22 12:56 05/26/22 12:56 Temperature 36.1 C L Temperature Source Temporal Artery Scan Pulse Rate 96 H Pulse Rate [Apical] Pulse Rhythm Regular Respiratory Rate 26 H 14 Respiratory Effort / Characteristics Non-Labored Non-Labored Spontaneous Respiratory Depth Normal Respiratory Pattern Regular Blood Pressure 96/52 L Blood Pressure [Right Arm] Blood Pressure Mean 66 Blood Pressure Mean [Right Arm] Pulse Oximetry 90 96 Oxygen Delivery Method Room Air Room Air Oxygen Flow Rate Sepsis Recent Fever Within 48 Hours No Sepsis New/Unexplained Change in Mental Status N/A Sepsis Action Taken by Nursing No Action Required 05/26/22 11:47 05/26/22 13:00 05/26/22 14:02 Temperature 36.6 C Temperature Source Oral Pulse Rate 87 Pulse Rate [Apical] 88 Pulse Rhythm Respiratory Rate 16 17 Respiratory Effort / Characteristics Respiratory Depth Respiratory Pattern Blood Pressure 112/65 Blood Pressure [Right Arm] 107/81 Blood Pressure Mean 80 Blood Pressure Mean [Right Arm] 89 Pulse Oximetry 99 99 100 Oxygen Delivery Method Oxygen Flow Rate Sepsis Recent Fever Within 48 Hours Sepsis New/Unexplained Change in Mental Status Sepsis Action Taken by Nursing 05/26/22 14:18 05/26/22 14:33 05/26/22 15:03 Temperature 36.5 C 36.5 C 36.5 C Temperature Source Oral Oral Oral Pulse Rate 92 H 89 88 Pulse Rate [Apical] Pulse Rhythm Respiratory Rate 17 21 24 Respiratory Effort / Characteristics Respiratory Depth Respiratory Pattern Blood Pressure 111/74 110/73 103/67 Blood Pressure [Right Arm] Blood Pressure Mean 86 85 79 Blood Pressure Mean [Right Arm] Pulse Oximetry 100 100 100 Oxygen Delivery Method Oxygen Flow Rate 3 3 Sepsis Recent Fever Within 48 Hours Sepsis New/Unexplained Change in Mental Status Sepsis Action Taken by Nursing 05/26/22 15:30 05/26/22 16:33 05/26/22 16:03 Temperature 36.5 C 36.4 C L Temperature Source Oral Oral Pulse Rate 83 86 Pulse Rate [Apical] 87 Pulse Rhythm Respiratory Rate 23 12 15 Respiratory Effort / Characteristics Respiratory Depth Respiratory Pattern Blood Pressure 115/80 128/66 Blood Pressure [Right Arm] 107/77 Blood Pressure Mean 91 86 Blood Pressure Mean [Right Arm] 87 Pulse Oximetry 100 100 Oxygen Delivery Method Room Air Oxygen Flow Rate 3 Sepsis Recent Fever Within 48 Hours Sepsis New/Unexplained Change in Mental Status Sepsis Action Taken by Nursing 05/26/22 17:27 Temperature 36.5 C Temperature Source Oral Pulse Rate 87 Pulse Rate [Apical] Pulse Rhythm Respiratory Rate 14 Respiratory Effort / Characteristics Respiratory Depth Respiratory Pattern Blood Pressure 109/66 Blood Pressure [Right Arm] Blood Pressure Mean 80 Blood Pressure Mean [Right Arm] Pulse Oximetry 100 Oxygen Delivery Method Oxygen Flow Rate 3 Sepsis Recent Fever Within 48 Hours Sepsis New/Unexplained Change in Mental Status Sepsis Action Taken by Nursing Laboratory Data Result diagrams: 05/26/22 11:54 05/26/22 11:54 Lab Results 05/26/22 05/26/22 05/26/22 Range/Units 11:54 11:54 11:54 WBC 4.39 L (4.8-10.8) K/ul RBC 1.80 L (4.63-6.08) M/uL Hgb 6.1 L* (14.0-18.0) g/dl Hct 19.1 L* (40.1-51.0) % MCV 106.1 H (80.0-100.0) fL MCH 33.9 (25.0-34.0) pg MCHC 31.9 L (32.0-36.0) g/dL RDW Std Deviation 84.0 H (36.4-46.3) fL RDW Coeff of Yogi 21.7 H (11.5-14.5) % Plt Count 416 H (130-400) K/uL MPV 10.8 (9.4-12.4) fL Immature Gran % (Auto) 2.1 % Neut % (Auto) 56.9 % Lymph % (Auto) 17.5 % [place] % (Auto) 22.1 % Eos % (Auto) 0.9 % Baso % (Auto) 0.5 % Reticulocyte % (Auto) (0.5-2.0) % Neut # (Auto) 2.50 (1.4-6.5) K/uL Lymph # (Auto) 0.77 L (1.2-3.4) K/uL [place] # (Auto) 0.97 H (0.24-0.82) K/uL Eos # (Auto) 0.04 (0-0.50) K/uL Baso # (Auto) 0.02 (0-0.2) K/uL Reticulocyte # (0.02-0.10) 10^6/uL Immature Gran # (Auto) 0.09 H (0.00-0.02) K/uL Absolute Nucleated RBC 0.34 H (0-0) K/uL Nucleated RBC % (auto) 7.7 % Polychromasia 1+ Anisocytosis Present Macrocytosis Present Ovalocytes 1+ PT 18.5 H (9.0-12.0) Seconds INR 1.8 H (0.9-1.1) APTT 40.5 H (21.0-31.0) Seconds PTT Ratio 1.5 Sodium 138 (136-145) mmol/L Potassium 4.3 (3.5-5.1) mmol/L Chloride 98 (98-107) mmol/L Carbon Dioxide 25 (21-32) mmol/L Anion Gap 15 H (3-11) BUN 25 H (6-23) mg/dl Creatinine 1.69 H (0.6-1.4) mg/dl Est Cr Clr Drug Dosing Not Reportable Est GFR ( Amer) 45.7 ml/min Est GFR (Non-Af Amer) 39.4 ml/min BUN/Creatinine Ratio 14.8 (10-20) Glucose 114 H (70-99(Fasting)) mg/dl Calcium 8.9 (8.5-10.1) mg/dl Magnesium 0.9 L* (1.7-2.4) mg/dl Total Bilirubin 0.7 (0.2-1.0) mg/dl AST 28 (13-39) U/L ALT 33 (7-52) U/L Alkaline Phosphatase 176 H (34-104) U/L Troponin I High Sens 15.8 (0-20) pg/ml Total Protein 7.9 (6.0-8.3) gm/dl Albumin 3.9 (3.4-5.0) gm/dl Globulin 4.0 (2.5-4.0) gm/dl Albumin/Globulin Ratio 1.0 (0.9-2) SARS-CoV-2, RNA, NAAT (NEGATIVE) Blood Type Antibody Screen Crossmatch 05/26/22 05/26/22 05/26/22 Range/Units 11:54 11:54 15:37 WBC (4.8-10.8) K/ul RBC (4.63-6.08) M/uL Hgb (14.0-18.0) g/dl Hct (40.1-51.0) % MCV (80.0-100.0) fL MCH (25.0-34.0) pg MCHC (32.0-36.0) g/dL RDW Std Deviation (36.4-46.3) fL RDW Coeff of Yogi (11.5-14.5) % Plt Count (130-400) K/uL MPV (9.4-12.4) fL Immature Gran % (Auto) % Neut % (Auto) % Lymph % (Auto) % [place] % (Auto) % Eos % (Auto) % Baso % (Auto) % Reticulocyte % (Auto) 7.8 H (0.5-2.0) % Neut # (Auto) (1.4-6.5) K/uL Lymph # (Auto) (1.2-3.4) K/uL [place] # (Auto) (0.24-0.82) K/uL Eos # (Auto) (0-0.50) K/uL Baso # (Auto) (0-0.2) K/uL Reticulocyte # 0.14 H (0.02-0.10) 10^6/uL Immature Gran # (Auto) (0.00-0.02) K/uL Absolute Nucleated RBC (0-0) K/uL Nucleated RBC % (auto) % Polychromasia Anisocytosis Macrocytosis Ovalocytes PT (9.0-12.0) Seconds INR (0.9-1.1) APTT (21.0-31.0) Seconds PTT Ratio Sodium (136-145) mmol/L Potassium (3.5-5.1) mmol/L Chloride (98-107) mmol/L Carbon Dioxide (21-32) mmol/L Anion Gap (3-11) BUN (6-23) mg/dl Creatinine (0.6-1.4) mg/dl Est Cr Clr Drug Dosing Est GFR ( Amer) ml/min Est GFR (Non-Af Amer) ml/min BUN/Creatinine Ratio (10-20) Glucose (70-99(Fasting)) mg/dl Calcium (8.5-10.1) mg/dl Magnesium (1.7-2.4) mg/dl Total Bilirubin (0.2-1.0) mg/dl AST (13-39) U/L ALT (7-52) U/L Alkaline Phosphatase (34-104) U/L Troponin I High Sens (0-20) pg/ml Total Protein (6.0-8.3) gm/dl Albumin (3.4-5.0) gm/dl Globulin (2.5-4.0) gm/dl Albumin/Globulin Ratio (0.9-2) SARS-CoV-2, RNA, NAAT NEGATIVE (NEGATIVE) Blood Type O Positive Antibody Screen NEGATIVE Crossmatch See Detail Administered Medications Discontinued Medications Furosemide (Furosemide 40 Mg/4 Ml Vial) 40 mg IV ONE ONE Stop: 05/26/22 14:31 Last Admin: 05/26/22 15:33 Dose: 40 mg Documented By: RUTH Magnesium Sulfate/Dextrose (Magnesium Sulfate / D5w) 1 gm in 100 mls @ 100 mls/hr IV NOW STA Stop: 05/26/22 14:20 Last Infusion: 05/26/22 14:24 Dose: 0 mls/hr Documented By: Admin: 05/26/22 13:24 Dose: 100 mls/hr Documented By: ANDRIY Magnesium Sulfate/Dextrose (Magnesium Sulfate / D5w) 1 gm in 100 mls @ 50 mls/hr IV ONE ONE Stop: 05/26/22 16:29 Last Infusion: 05/26/22 16:30 Dose: 0 mls/hr Documented By: Admin: 05/26/22 14:30 Dose: 50 mls/hr Documented By: ANDRIY Magnesium Sulfate/Dextrose (Magnesium Sulfate / D5w) 1 gm in 100 mls @ 50 mls/hr IV ONE ONE Stop: 05/26/22 17:35 Last Admin: 05/26/22 17:13 Dose: 50 mls/hr Documented By: RUTH Imaging Data Radiologist's Impression: Chest X-Ray 05/26/22 11:47 XR chest 1V portable CLINICAL HISTORY: SOB. COMPARISON STUDY: 03/01/2022 and 12/30/2021 TECHNIQUE: 1 view of the chest FINDINGS: Single frontal view of the chest demonstrates the heart to again be enlarged status post pacer placement. Compared to the previous examinations, prominence of the interstitial markings is again seen at the lung bases characteristic of chronic interstitial lung disease. This is essentially unchanged. The lungs are clear of acute alveolar opacities. There is no evidence for pleural effusion. There is no evidence for vascular congestion. There is no acute osseous pathology. IMPRESSION: 1. Compared to the previous studies, there is again evidence for interstitial fibrotic changes at both lung bases. 2. Cardiomegaly, pacer. Otherwise no acute chest disease. ACT 112: Negative or not required by law. Electronically signed by: William Castaneda M.D. 05/26/2022 1:47 PM Discharge Plan Visit Data Chief Complaint: Abnormal Labs/Diagnostic Testing Stated Complaint: REF BY , ABNORMAL LABS ED Provider: Mauro Taveras Discharge Problem: Severe anemia, Hypomagnesemia Forms Stand Alone Forms: My [facility] Prescriptions Prescriptions: No Action pantoprazole 20 mg tablet,delayed release (DR/EC) 20 mg PO DAILY Qty: 90 3RF folic acid 1 mg tablet 1 mg PO QDL metoprolol succinate 50 mg tablet extended release 24 hr 50 mg PO BID cetirizine [Zyrtec] 10 mg tablet 5 mg PO QAM atorvastatin 40 mg Tablet 40 mg PO HS cholecalciferol (vitamin D3) [Vitamin D3] 25 mcg (1,000 unit) Capsule 2,000 unit PO QDL albuterol sulfate 90 mcg/actuation HFA aerosol inhaler 2 inh inhalation Q4H PRN (Reason: shortness of breath or wheezing) Qty: 8.5 0RF Xarelto 15 mg Tablet 15 mg PO HS Qty: 30 0RF furosemide 40 mg tablet 40 mg PO QAM Qty: 0 0RF ondansetron HCl 8 mg tablet 8 mg PO Q8H PRN (Reason: Nausea) prochlorperazine maleate 10 mg tablet 10 mg PO Q6H PRN (Reason: Nausea) cyanocobalamin (vitamin B-12) [Vitamin B-12] 100 mcg Tablet 100 mcg PO DAILY allopurinol 100 mg tablet 100 mg PO QAM Referrals Referrals: Chandrakant Herron MD [Primary Care Provider] -
--- NOTE | 2022-05-26 17:49 | Electrocardiogram Report ---
Test Reason : Blood Pressure : / mmHG Vent. 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
[2022-05-26] MEDS ORDERED: ONDANSETRON INJ 2 MG/ML 2 ML VIAL IV PRN (19:01)
[2022-05-26] MEDS ORDERED: ALBUTEROL HFA 8 GM INHALER INH PRN (19:01)
[2022-05-26] MEDS ORDERED: ACETAMINOPHEN 325 MG TAB PO PRN (19:01)
[2022-05-26] MEDS ORDERED: POLYETHYLENE (MIRALAX) 17 GM PACK PO PRN (19:01)
[2022-05-26 19:13] LABS: Iron 77 mcg/dl (35-175); Unsaturated Iron Binding Cap 234 mcg/dl (155-355)
[2022-05-26] MEDS: PANTOprazole 40 MG in SYRINGE 0 ML IV SCH (20:00)
[2022-05-26] MEDS: ATORVASTATIN 40 MG TAB PO SCH (21:13)
[2022-05-26] MEDS: METOPROLOL SUCC 50MG EXT REL TAB PO SCH (21:13)
[2022-05-26 21:15] LABS: Hematocrit (blood only) 24.2 % (40.1-51.0)
[2022-05-27 06:30] LABS: Hemoglobin 7.5 g/dl (14.0-18.0); Mean Corpuscular Hemoglobin 32.1 pg (25.0-34.0); Mean Corpuscular Hgb Conc 32.6 g/dL (32.0-36.0); Mean Corpuscular Volume 98.3 fL (80.0-100.0); Mean Platelet Volume 10.3 fL (9.4-12.4); Nucleated RBC # (auto) 0.21 K/uL (0-0); Nucleated RBC % (auto) 5.4 %; Platelet Count 376 K/uL (130-400); RDW Coefficient of Variation 23.8 % (11.5-14.5); RDW Standard Deviation 81.6 fL (36.4-46.3); Red Blood Count 2.34 M/uL (4.63-6.08); White Blood Count 3.92 K/ul (4.8-10.8)
[2022-05-27 07:12] LABS: BUN Creatinine Ratio 14.6 (10-20); Calcium 8.6 mg/dl (8.5-10.1); Creatinine Clr Calc Pharmacy 52.5 ml/min; Est GFR (African American) 49.9 ml/min; Est GFR (Non-African American) 43.1 ml/min; Magnesium 1.6 mg/dl (1.7-2.4); Potassium 4.3 mmol/L (3.5-5.1)
[2022-05-27] MEDS: PANTOprazole 40 MG in SYRINGE 0 ML IV SCH ×2 (08:37→20:18)
[2022-05-27] MEDS: METOPROLOL SUCC 50MG EXT REL TAB PO SCH ×2 (08:38→20:22)
--- NOTE | 2022-05-27 08:42 | Gastrointestinal Consultation ---
Date of Consultation May 27, 2022 Assessment & Plan (1) Severe anemia: (2) Lung cancer: Pt is a 71 yo male w lung ca w mets to liver/lymph node on chemo, anemia on Aranesp, admitted for symptomatic anemia. Good response of blood ct w 2U PRBC transfusion. He is on Xarelto, and denies maura GI/ bleeding symptoms. He does have hx of non bleeding duodenal ulcer found in 2019. No NSAIDs uses. - Monitor H/H and transfuse prn - Hold Xarelto - PPI gtt - NPO for EGD today by Dr. Duggan - Avoid NSAIDs Supervising Physician Co-Signing Physician Notes I performed a history and physical examination of the patient today, including specifically on physical exam - soft abdomen. I have discussed the patient's management with the advanced practitioner. Please refer to the nurse practitioner's note for the documented findings and plan of care. EGD today History of Present Illness Reason for Consultation: Anemia Requesting Physician: Dr. Felicia Tang Attending Physician: Dr. Andres Duggan History of Present Illness Pt is a 71 yo male referred to ED yesterday for anemia and symptoms of SOB. He has lung ca w liver/lymph nodes mets, currently undergoing chemotherapy (gemcitabine & carboplatin, last dose 05/05). He is on home O2 2L when ambulating. Outpt labs yesterday showed Hgb of 5.9 (baseline 7). He had been getting Aranesp for anemia as well. He received 2U PRBC transfusion overnight w good response of blood count. Pt on Xarelto for Afib. He denies any symptoms of GI/ bleeding or large areas of ecchymosis. He did have hx of non bleeding duodenal ulcer noted on EGD in 10/2019. This has resolved when he had repeat EGD 12/2019. He denies NSAIDs uses. Allergies Allergy/AdvReac Type Severity Reaction Status Date / Time diphtheria toxoid,fluid Allergy Severe CONVULSIONS--HORSE Verified 05/10/22 14:50 SERUM BASE tetanus toxoid, adsorbed Allergy Severe CONVULSIONS--HORSE Verified 05/10/22 14:50 SERUM BASE Home Medications Medication Instructions Recorded Confirmed Type atorvastatin 40 mg tablet 40 mg PO HS 10/29/19 05/26/22 History cholecalciferol (vitamin D3) 25 2,000 unit PO QDL 11/20/19 05/26/22 History mcg (1,000 unit) capsule (Vitamin D3) folic acid 1 mg tablet 1 mg PO QDL 06/08/20 05/26/22 History metoprolol succinate 50 mg 50 mg PO BID 01/04/21 05/26/22 History tablet,extended release 24 hr cetirizine 10 mg tablet (Zyrtec) 5 mg PO QAM 08/16/21 05/26/22 History albuterol sulfate 90 mcg/actuation 2 inh inhalation Q4H PRN shortness 09/21/21 05/26/22 Rx aerosol inhaler of breath or wheezing #8.5 grams furosemide 40 mg tablet 40 mg PO QAM #0 tabs 12/31/21 05/26/22 Rx rivaroxaban 15 mg tablet (Xarelto) 15 mg PO HS #30 tabs 12/31/21 05/26/22 Rx ondansetron HCl 8 mg tablet 8 mg PO Q8H PRN Nausea 02/21/22 05/26/22 History prochlorperazine maleate 10 mg 10 mg PO Q6H PRN Nausea 02/21/22 05/26/22 History tablet pantoprazole 20 mg tablet,delayed 20 mg PO DAILY #90 tabs 03/18/22 05/26/22 Rx release allopurinol 100 mg tablet 100 mg PO QAM 05/26/22 05/26/22 History cyanocobalamin (vitamin B-12) 100 100 mcg PO DAILY 05/26/22 05/26/22 History mcg tablet (Vitamin B-12) Patient History Medical History Acute GI bleeding Atrial fibrillation dx 2016 - follows w/ Dr. Trejo Chronic systolic heart failure CKD (chronic kidney disease), stage III Congestive heart failure Deep vein thrombosis RLE - 2016 dx while hospitalized w/ pneumonia Duodenal ulcer Hearing deficit BL [facility] Hematoma of left lower extremity Osteoarthritis Pneumonia Pulmonary embolism 2016 - dx while hospitalized w/ pneumonia - on xarelto Surgical History History of appendectomy History of cardiac catheterization 2016 - [place] - no stents History of cardioversion 11/08/2016 History of carpal tunnel release of both wrists History of cataract surgery History of colonoscopy History of esophagogastroduodenoscopy (EGD) History of evacuation of hematoma LLE History of shoulder surgery Left 2005 History of tonsillectomy Presence of combination internal cardiac defibrillator (ICD) and pacemaker placed 2017 - medtronic - last checked 1 year ago - follows w/ dr. yeh Family History Mother Diabetes Grandfather (Paternal) No problems noted. Father Lymphoma Grandfather (Maternal) Myocardial infarction Other No family history of adverse response to anesthesia Denies family history of Ovarian cancer Prostate cancer Heart disease Breast cancer Colorectal cancer Social History Smoking Status: Never smoker Tobacco Type: Cigarettes Age Quit Using Tobacco: 53; Cigarettes Per Day: 1 pack a day; Second Hand Exposure: No; Hx Alcohol Use: No Hx Substance Use: No Preferred Language: Urdu Communication Ability: Effective Visual Impairment: Limited Hearing Ability: Use of Hearing Aid Hand Model Required: No Beliefs That Will Affect Care: None marital status: Current Living Situation: Spouse current occupational status: retired 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 How many Children do You have: 0 Feels Safe at Home: Yes Safety Concerns: Feels Safe At This Time Childhood Exposure to Second-Hand Smoke: Yes (dad did ) caffeine: Yes (cup of coffee in morning ) Dental Care, Regularly: No Physical Activity Frequency: Does not Exercise Seatbelt Use: always Sunscreen Use: No (doesn't go out in sun ) Assistive Devices: Oxygen - Continuous Assistive Devices Comment: oxygen as needed with ambulation Review of Systems Review of Systems: All systems reviewed & are unremarkable except as noted in HPI & below Physical Exam Constitutional: WD/WN, vitals as above well groomed, cooperative and comfortable Eyes: PERRL, conjunctivae normal, anicteric sclerae ENMT: external ear and nose normal, oropharynx normal Respiratory: normal respiratory effort, lungs clear to auscultation Cardiovascular: RRR, no murmur, no edema Gastrointestinal (Abdomen): normal bowel sounds, soft, nontender, no hepatosplenomegaly Skin: no rashes, warm and dry no jaundice Psychiatric: A+Ox3, euthymic affect Lymphatic: no lymphedema Results & Data ([facility]) Vital Signs (Past 12 Hours) Vital Signs Temp Pulse Pulse Resp BP Pulse Ox O2 Del Method 05/27/22 06:54 36.7 C 86 19 116/66 98 Nasal Cannula 05/26/22 23:00 83 05/26/22 20:55 87 05/27/22 03:15 36.7 C 73 18 112/79 90 Nasal Cannula 05/26/22 23:35 36.9 C 87 16 110/67 98 Nasal Cannula 05/26/22 20:53 Nasal Cannula 05/26/22 20:51 36.7 C 86 20 130/86 99 Nasal Cannula O2 Flow Rate 05/27/22 06:54 4 05/26/22 23:00 05/26/22 20:55 05/27/22 03:15 3 05/26/22 23:35 3 05/26/22 20:53 3 05/26/22 20:51 2
[2022-05-27] MEDS: FUROSEMIDE 40 MG TAB PO SCH (09:09)
[2022-05-27 10:32] LABS: INR 1.3 (0.9-1.1)
[2022-05-27] MEDS: FOLIC ACID 1 MG TAB PO SCH (10:37)
[2022-05-27] MEDS ORDERED: PROPOFOL IV EMULSION 10 MG/ML 20 ML VIAL IV ONE (12:53)
[2022-05-27] MEDS ORDERED: LIDOCAINE 2% MPF LOCAL 5 ML VIAL INFIL ONE (12:53)
--- NOTE | 2022-05-27 13:44 | Anesthesiology Consultation ---
Date of Service May 27, 2022 Assessment & Plan ASA ASA4 Proposed Anesthesia Anesthesia Type: MAC Risk / Benefits Reviewed With: PT / POA / Parent / Guardian, Accepts Plan and Informed Consent Obtained History Surgery Operation Date: 05/27/22 16:45 Proposed Procedures p Esophagogastroduodenoscopy Dr Duggan - Andres Duggan MD Height/Weight Height: 6 ft 1 in Weight: 101.5 kg Allergies Allergy/AdvReac Type Severity Reaction Status Date / Time diphtheria toxoid,fluid Allergy Severe CONVULSIONS--HORSE Verified 05/27/22 13:24 SERUM BASE tetanus toxoid, adsorbed Allergy Severe CONVULSIONS--HORSE Verified 05/27/22 13:24 SERUM BASE Medications Home Medications Medication Instructions Recorded Confirmed Last Taken atorvastatin 40 mg tablet 40 mg PO HS 10/29/19 05/26/22 12/27/21 cholecalciferol (vitamin D3) 25 2,000 unit PO QDL 11/20/19 05/26/22 12/27/21 mcg (1,000 unit) capsule (Vitamin D3) folic acid 1 mg tablet 1 mg PO QDL 06/08/20 05/26/22 12/27/21 metoprolol succinate 50 mg 50 mg PO BID 01/04/21 05/26/22 12/28/21 tablet,extended release 24 hr cetirizine 10 mg tablet (Zyrtec) 5 mg PO QAM 08/16/21 05/26/22 12/28/21 albuterol sulfate 90 mcg/actuation 2 inh inhalation Q4H PRN shortness 09/21/21 05/26/22 12/26/21 aerosol inhaler of breath or wheezing #8.5 grams furosemide 40 mg tablet 40 mg PO QAM #0 tabs 12/31/21 05/26/22 12/28/21 rivaroxaban 15 mg tablet (Xarelto) 15 mg PO HS #30 tabs 12/31/21 05/26/22 Unknown ondansetron HCl 8 mg tablet 8 mg PO Q8H PRN Nausea 02/21/22 05/26/22 Unknown prochlorperazine maleate 10 mg 10 mg PO Q6H PRN Nausea 02/21/22 05/26/22 Unknown tablet pantoprazole 20 mg tablet,delayed 20 mg PO DAILY #90 tabs 03/18/22 05/26/22 Unknown release allopurinol 100 mg tablet 100 mg PO QAM 05/26/22 05/26/22 Unknown cyanocobalamin (vitamin B-12) 100 100 mcg PO DAILY 05/26/22 05/26/22 Unknown mcg tablet (Vitamin B-12) Active Medications Generic Name Dose Route Start Last Admin Trade Name Dkq PRN Reason Stop Dose Admin Atorvastatin Calcium 40 mg 05/26/22 21:00 05/26/22 21:13 Atorvastatin 40 Mg Tab PO 06/25/22 20:59 40 mg HS AMBER Administration Folic Acid 1 mg 05/27/22 11:30 05/27/22 10:37 Folic Acid 1 Mg Tab PO 06/26/22 11:29 Not Given QDL AMBER Furosemide 40 mg 05/27/22 09:00 05/27/22 09:09 Furosemide 40 Mg Tab PO 06/26/22 08:59 40 mg QAM AMBER Administration Pantoprazole Sodium 40 mg/ 10 mls @ 5 mls/min 05/26/22 20:00 05/27/22 08:37 Syringe IV 06/25/22 19:59 5 mls/min Q12H AMBER Administration Metoprolol Succinate 50 mg 05/26/22 21:00 05/27/22 08:38 Metoprolol Succ 50mg Ext Rel Tab PO 06/25/22 20:59 50 mg BID AMBER Administration NPO Date Last Intake of Fluids: 05/27/22 Time Last Intake of Fluids: 10:30 Date Last Intake of Solids: 05/25/22 Time Last Intake of Solids: 17:30 Past Medical History Medical History Acute GI bleeding Atrial fibrillation dx 2016 - follows w/ Dr. Trejo Chronic systolic heart failure CKD (chronic kidney disease), stage III Congestive heart failure Deep vein thrombosis RLE - 2016 dx while hospitalized w/ pneumonia Duodenal ulcer Hearing deficit BL [place] Hematoma of left lower extremity Osteoarthritis Pneumonia Pulmonary embolism 2016 - dx while hospitalized w/ pneumonia - on xarelto Exercise / Class Metabolic Activity II 4-5 Yardwork/Stairs/Walk up hill Past Family History Family History Mother Diabetes Grandfather (Paternal) No problems noted. Father Lymphoma Grandfather (Maternal) Myocardial infarction Other No family history of adverse response to anesthesia Denies family history of Ovarian cancer Prostate cancer Heart disease Breast cancer Colorectal cancer Past Surgical History Surgical History History of appendectomy History of cardiac catheterization 2016 - [place] - no stents History of cardioversion 11/08/2016 History of carpal tunnel release of both wrists History of cataract surgery History of colonoscopy History of esophagogastroduodenoscopy (EGD) History of evacuation of hematoma LLE History of shoulder surgery Left 2005 History of tonsillectomy Presence of combination internal cardiac defibrillator (ICD) and pacemaker placed 2016 - [employer] - last checked 1 year ago - follows w/ dr. yeh Past Anesthesia History No Hx of Anesthesia Complications and No Family Hx of Anesthesia Complications History of PONV No Hx of PONV and No Hx of Motion Sickness Social History Smoking Status: Never smoker tobacco type: cigarettes Smoking cigarettes per day: 1 pack a day Hx Alcohol Use: No Hx Substance Use: No substance use type: does not use Review of Systems denies fever/cough/ colds/ chest pain/ +SOB/ denies RENATO Physical Exam Vital Signs Last Vital Signs Temp 36.8 C 05/27/22 13:25 Pulse 89 05/27/22 13:25 Resp 22 05/27/22 13:25 BP 125/74 05/27/22 13:25 Pulse Ox 96 05/27/22 13:25 O2 Del Method 05/27/22 13:25 O2 Flow Rate 4 05/27/22 13:25 ENMT Mouth: + poor dentition (many missing); no TMJ abnormality and no dentition abnormality Thyromental Distance: > or= 3.5 Finger Breadths Mallampati Class: II Neck + facial hair; neck extension not limited Respiratory normal respiratory effort (bibasilar crackles); no respiratory distress Auscultation: + crackles; + lungs not clear to auscultation Cardiovascular Rate/Rhythm: regular rate and regular rhythm Neurologic moves all extremities Psychiatric Orientation: alert and oriented x 3 Testing Laboratory Results 05/27/22 06:09 05/27/22 06:09 PT 14.0 Seconds (9.0-12.0) H 05/27/22 09:39 INR 1.3 (0.9-1.1) H 05/27/22 09:39 APTT 40.5 Seconds (21.0-31.0) H 05/26/22 11:54 Blood Type O Positive 05/26/22 11:54 Antibody Screen NEGATIVE 05/26/22 11:54 05/27/22 07:14 POC Glucose 112 H
--- NOTE | 2022-05-27 14:10 | GI REPORT ---
Patient Name: Mauro Jaquez Procedure Date: 05/27/2022 1:56 PM Date of : 1950 Admit Type: Inpatient Age: 71 Gender: Male Attending MD: Andres Duggan MD Procedure: Upper GI endoscopy Providers: Andres Duggan MD Referring MD: Veeral. Nicola Md, Felicia Tang Indications: Anemia Medicines: Propofol per Anesthesia Complications: No immediate complications. Estimated Blood Loss: Estimated blood loss: none. Procedure: Pre-Anesthesia Assessment: - Prior to the procedure, a History and Physical was performed, and patient medications, allergies and sensitivities were reviewed. The patient's tolerance of previous anesthesia was reviewed. - The risks and benefits of the procedure and the sedation options and risks were discussed with the patient. All questions were answered and informed consent was obtained. - Patient identification and proposed procedure were verified prior to the procedure by the physician and the nurse. The procedure was verified in the procedure room. - Pre-procedure physical examination revealed no contraindications to sedation. After obtaining informed consent, the endoscope was passed under direct vision. Throughout the procedure, the patient's blood pressure, pulse, and oxygen saturations were monitored continuously. The Endoscope was introduced through the mouth, and advanced to the second part of duodenum. The upper GI endoscopy was accomplished without difficulty. The patient tolerated the procedure well. Findings: The examined esophagus was normal. The entire examined stomach was normal. The duodenal bulb and second portion of the duodenum were normal. Impression: - Normal esophagus. - Normal stomach. - Normal duodenal bulb and second portion of the duodenum. - No specimens collected. Recommendation: - Return patient to [facility] care. - Resume regular diet. - Anemia is likely related to chronic illness. - Recall GI as needed. Andres Duggan MD 05/27/2022 2:10:46 PM This report has been signed electronically. Note Initiated On: 05/27/2022 1:56 PM Number of Addenda: 0 I attest to the content of the Intraoperative Record and orders documented therein, exceptions below {[id number]}
--- NOTE | 2022-05-27 14:32 | Anesthesiology Progress Note ---
Date of Service May 27, 2022 Anesthesia Post Procedure Vital Signs Vital Signs: Temp Pulse Pulse Pulse Resp BP BP 05/27/22 14:28 90 16 115/79 05/27/22 14:13 91 H 16 97/69 L 05/27/22 13:25 36.8 C 89 22 125/74 05/27/22 11:18 36.7 C 88 18 05/27/22 10:28 05/27/22 06:54 36.7 C 86 19 05/26/22 23:00 83 05/26/22 20:55 87 05/27/22 03:15 36.7 C 73 18 05/26/22 23:35 36.9 C 87 16 05/26/22 20:53 05/26/22 20:51 36.7 C 86 20 05/26/22 19:33 36.8 C 94 H 24 138/106 H 05/26/22 19:14 81 16 108/83 05/26/22 18:03 36.5 C 88 14 124/81 05/26/22 18:03 36.5 C 94 H 20 124/81 05/26/22 18:33 36.4 C L 86 22 132/80 05/26/22 17:48 36.6 C 87 19 124/76 05/26/22 17:27 36.5 C 87 14 109/66 05/26/22 16:03 36.4 C L 86 15 128/66 05/26/22 16:33 36.5 C 83 12 115/80 05/26/22 15:30 87 23 05/26/22 15:03 36.5 C 88 24 103/67 05/26/22 14:33 36.5 C 89 21 110/73 BP Pulse Ox O2 Del Method O2 Flow Rate 05/27/22 14:28 97 Nasal Cannula 2 05/27/22 14:13 100 Oxymask 4 05/27/22 13:25 96 Nasal Cannula 4 05/27/22 11:18 112/75 96 Nasal Cannula 4 05/27/22 10:28 Nasal Cannula 3 05/27/22 06:54 116/66 98 Nasal Cannula 4 05/26/22 23:00 05/26/22 20:55 05/27/22 03:15 112/79 90 Nasal Cannula 3 05/26/22 23:35 110/67 98 Nasal Cannula 3 05/26/22 20:53 Nasal Cannula 3 05/26/22 20:51 130/86 99 Nasal Cannula 2 05/26/22 19:33 98 05/26/22 19:14 Nasal Cannula 3 05/26/22 18:03 98 3 05/26/22 18:03 94 05/26/22 18:33 05/26/22 17:48 96 05/26/22 17:27 100 3 05/26/22 16:03 100 05/26/22 16:33 100 3 05/26/22 15:30 107/77 Room Air 05/26/22 15:03 100 3 05/26/22 14:33 100 3 Transfer of Care Handoff Completed per policy Notes Mental Status: alert / awake / arousable and participated in evaluation Patient Amnestic to Procedure: Yes Nausea / Vomiting: adequately controlled Pain: adequately controlled Airway Patency, RR, SpO2: stable & adequate BP & HR: stable & adequate Hydration State: stable & adequate Anesthetic Complications: no major complications apparent and Pt Satisfied with anesthetic care
--- NOTE | 2022-05-27 14:47 | Hospitalist Progress Note ---
Date of Service May 27, 2022 Assessment & Plan (1) Symptomatic anemia: Plan: This is a 71yo M with a PMH of lung cancer with mets to liver on home O2 receiving chemo, ILD, CKD III, iron deficiency anemia, chronic systolic heart failure, paroxysmal atrial fibrillation, history of DVT/PE on anticoagulation and other medical problems listed below who presents from heme onc clinic with hypotension and symptomatic anemia. Likely secondary to chemotherapy for a squamous cancer of the lung with mets. No evidence of active blood loss in the form of hematemesis and or melena or hematochezia Receiving Aranesp for chronic anemia every 3 weeks No maura melena or hematochezia - obtaining FOBT, IV PPI, routine GI consult for possible GI bleed, NPO @ [place] Holding Xarelto for now Hgb down from baseline 7-8 to 6 Received 2 units of PRBC and the patient is feeling better Hemoglobin this morning is 7.5 Appreciate GI evaluation Awaiting endoscopy sometime this afternoon (2) Hypotension: Plan: Presented with hypotension in the clinic Initial hypotension has resolved (3) Squamous cell carcinoma lung: Plan: Has been on chemo (4) Chronic respiratory failure with hypoxia: Plan: Follows with Dr. Petersen of [facility] and was seen in follow up earlier today. Chemo regimen includes gemcitabine and the carboplatin chemotherapy which was started in December 2021 Continue 2L NC O2 No worsening of his symptoms (5) Chronic systolic heart failure: Plan: Appears euvolemic on admission Echo from December 2021 with reduced EF 45-50%, aortic sclerosis Giving 40mg IV Lasix in between units of blood - may need additional diuresis Monitor volume status closely. Strict I&Os, daily weights, low sodium diet Not requiring more oxygen than at baseline Cumulative volume status is -923 mL (6) Hypomagnesemia: Plan: Initial mg 0.9 - replacing. 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 Continue supplemental Oxygen (8) CKD (chronic kidney disease), stage III: Plan: Cr at baseline ~1.7. Continue to monitor with daily BMP Stable at 1.57 on 05/27/2022 (9) CAD (coronary artery disease): Plan: Stable. Continue statin, Toprol (10) Deep vein thrombosis: Plan: On Xarelto-on hold right now (11) custodial (current) use of anticoagulants: Plan: H/o DVT/PE in 2016. Holding Xarelto for now in setting of anemia, concern for GI bleed (12) Paroxysmal atrial fibrillation: Plan: Continue Toprol. Holding ac for now as above DVT Ppx: Holding Xarelto for now in setting of possible bleed. SCDs. Code status: FULL PCP: Germaine Dispo: Admitting to PCU Admission and Anticipated Discharge Date Admission Date: May 26, 2022 Subjective 05/27/2022 The patient was seen and examined in telemetry unit He is status post 2 units of PRBC for symptomatic anemia and has been feeling better since admission. He denies any nausea , vomiting , hematemesis, melena or hematochezia Denies any chest pain and/or palpitation Has been waiting to be scoped Review of Systems Review of Systems: All systems reviewed and are unremarkable except as noted below Physical Exam Physical Exam: Lying in bed without any apparent distress Constitutional: well developed, well nourished and + obese; not ill appearing Eyes: PERRL, conjunctivae normal, anicteric sclerae ENMT: external ear and nose normal, oropharynx normal Neck: trachea midline, no thyromegaly Respiratory: no respiratory distress Auscultation: + diminished lung sounds and + crackles (Minimal bibasilar crackles more on the right than the left) Cardiovascular: Rate/Rhythm: regular rate and regular rhythm; not tachycardic Heart Sounds: normal S1 and normal S2; no murmur Extremities: no edema Gastrointestinal (Abdomen): Inspection/Auscultation: normal bowel sounds; abdomen not distended Percussion/Palpation: abdomen soft; abdomen nontender Musculoskeletal: No acute arthritis in any joint Neurologic: Alert, awake and oriented x3. No focal sensory no motor deficit appreciated Psychiatric: A+Ox3, euthymic affect Results & Data Results & Data ([facility]) Vital Signs (Past 12 Hours) Vital Signs Temp Pulse Pulse Resp BP BP Pulse Ox 05/27/22 14:28 90 16 115/79 97 05/27/22 14:13 91 H 16 97/69 L 100 05/27/22 13:25 36.8 C 89 22 125/74 96 05/27/22 11:18 36.7 C 88 18 112/75 96 05/27/22 10:28 05/27/22 06:54 36.7 C 86 19 116/66 98 05/27/22 03:15 36.7 C 73 18 112/79 90 O2 Del Method O2 Flow Rate 05/27/22 14:28 Nasal Cannula 2 05/27/22 14:13 Oxymask 4 05/27/22 13:25 Nasal Cannula 4 05/27/22 11:18 Nasal Cannula 4 05/27/22 10:28 Nasal Cannula 3 05/27/22 06:54 Nasal Cannula 4 05/27/22 03:15 Nasal Cannula 3 Laboratory Results Short CBC 05/26/22 05/27/22 Range/Units 21:07 06:09 WBC 3.92 L (4.8-10.8) K/ul Hgb 8.0 L 7.5 L (14.0-18.0) g/dl Hct 24.2 L 23.0 L (40.1-51.0) % Plt Count 376 (130-400) K/uL BMP 05/27/22 06:09 Sodium 137 Potassium 4.3 Chloride 99 Carbon Dioxide 31 BUN 23 Creatinine 1.57 H Glucose 100 H Calcium 8.6 Medications Administered Current Inpatient Medications Acetaminophen (Acetaminophen 325 Mg Tab) 650 mg PO Q4H PRN PRN Reason: Pain or Fever Stop: 06/25/22 19:00 Albuterol (Albuterol Hfa 8 Gm Inhaler) 2 puffs INH Q4H PRN PRN Reason: shortness of breath or wheezing Stop: 06/25/22 19:00 Allopurinol (Allopurinol 100 Mg Tab) 100 mg PO QAM AMBER Stop: 06/27/22 08:59 Atorvastatin Calcium (Atorvastatin 40 Mg Tab) 40 mg PO HS AMBER Stop: 06/25/22 20:59 Last Admin: 05/26/22 21:13 Dose: 40 mg Cetirizine HCl (Cetirizine Hcl 10 Mg Tablet) 5 mg PO QAM AMBER Stop: 06/27/22 08:59 Cyanocobalamin (Cyanocobalamin (B-12) 100 Mcg Tablet) 100 mcg PO DAILY AMBER Stop: 06/27/22 08:59 Folic Acid (Folic Acid 1 Mg Tab) 1 mg PO QDL AMBER Stop: 06/26/22 11:29 Last Admin: 07/29/22 10:37 Dose: Not Given Furosemide (Furosemide 40 Mg Tab) 40 mg PO QAM [facility] Stop: 06/26/22 08:59 Last Admin: 05/27/22 09:09 Dose: 40 mg Pantoprazole Sodium 40 mg/ (Syringe) 10 mls @ 5 mls/min IV Q12H [facility] Stop: 06/25/22 19:59 Last Admin: 05/27/22 08:37 Dose: 5 mls/min Metoprolol Succinate (Metoprolol Succ 50mg Ext Rel Tab) 50 mg PO BID AMBER Stop: 06/25/22 20:59 Last Admin: 05/27/22 08:38 Dose: 50 mg Ondansetron HCl (Ondansetron Inj 2 Mg/Ml 2 Ml Vial) 4 mg IV Q6H PRN PRN Reason: Nausea Stop: 06/25/22 19:00 Polyethylene Glycol (Polyethylene (Miralax) 17 Gm Pack) 17 gm PO DAILY PRN PRN Reason: Constipation Stop: 06/25/22 19:00 Vitamin D (Cholecalciferol 1,000 Units 25 Mcg Tab) 2,000 units PO QDL [facility] Stop: 06/27/22 08:59 (1) Squamous cell carcinoma lung Laterality: unspecified laterality Qualified Code(s): C34.90 - Malignant neoplasm of unspecified part of unspecified bronchus or lung
[2022-05-27] MEDS: ATORVASTATIN 40 MG TAB PO SCH (20:18)
[2022-05-28 07:54] LABS: Basophils # (auto) 0.02 K/uL (0-0.2); Basophils % (auto) 0.5 %; Eosinophils # (auto) 0.13 K/uL (0-0.50); Hematocrit (blood only) 22.9 % (40.1-51.0); Hemoglobin 7.2 g/dl (14.0-18.0); Immature Granulocytes # (auto) 0.05 K/uL (0.00-0.02); Immature Granulocytes % (auto) 1.1 %; Lymphocytes # (auto) 0.92 K/uL (1.2-3.4); Lymphocytes % (auto) 21.1 %; Mean Corpuscular Hemoglobin 32.3 pg (25.0-34.0); Mean Corpuscular Hgb Conc 31.4 g/dL (32.0-36.0); Mean Corpuscular Volume 102.7 fL (80.0-100.0); Mean Platelet Volume 10.7 fL (9.4-12.4); Monocytes # (auto) 1.13 K/uL (0.24-0.82); Neutrophils % (auto) 48.3 %; Nucleated RBC # (auto) 0.19 K/uL (0-0); Nucleated RBC % (auto) 4.4 %; Platelet Count 391 K/uL (130-400); RDW Coefficient of Variation 23.6 % (11.5-14.5); RDW Standard Deviation 85.5 fL (36.4-46.3); Red Blood Count 2.23 M/uL (4.63-6.08); White Blood Count 4.35 K/ul (4.8-10.8)
[2022-05-28] MEDS: PANTOprazole 40 MG in SYRINGE 0 ML IV SCH ×2 (08:10→20:40)
[2022-05-28] MEDS: CETIRIZINE HCL 10 MG TABLET PO SCH (08:11)
[2022-05-28] MEDS: METOPROLOL SUCC 50MG EXT REL TAB PO SCH ×2 (08:11→20:41)
[2022-05-28] MEDS: CHOLECALCIFEROL 1,000 UNITS 25 MCG TAB PO SCH ×2 (08:11→12:48)
[2022-05-28] MEDS: FUROSEMIDE 40 MG TAB PO SCH (08:12)
[2022-05-28] MEDS: CYANOCOBALAMIN (B-12) 100 MCG TABLET PO SCH (08:12)
[2022-05-28] MEDS: allopurinoL 100 MG TAB PO SCH (08:12)
[2022-05-28 08:16] LABS: BUN Creatinine Ratio 15.9 (10-20); Calcium 8.3 mg/dl (8.5-10.1); Creatinine Clr Calc Pharmacy 47.2 ml/min; Est GFR (African American) 43.5 ml/min; Est GFR (Non-African American) 37.5 ml/min; Magnesium 1.4 mg/dl (1.7-2.4); Phosphorus 3.5 mg/dl (2.5-4.9); Potassium 3.9 mmol/L (3.5-5.1)
[2022-05-28 08:33] LABS: Anisocytosis Present; Polychromasia 1+
[2022-05-28] MEDS ORDERED: SODIUM CHLORIDE 0.9% 250 ML IV PRN ×2 (10:22→10:52)
[2022-05-28] MEDS ORDERED: FUROSEMIDE 40 MG/4 ML VIAL IV SCH (11:00)
[2022-05-28] MEDS ORDERED: ACETAMINOPHEN 325 MG TAB PO SCH (11:00)
[2022-05-28] MEDS: FOLIC ACID 1 MG TAB PO SCH (12:48)
[2022-05-28] MEDS ORDERED: MAGNESIUM SULFATE / D5W 1 GM/100 ML BAG IV ONE (14:14)
--- NOTE | 2022-05-28 14:16 | Hospitalist Progress Note ---
Date of Service May 28, 2022 Assessment & Plan (1) Acute on chronic anemia: Plan: This is a 71yo M with a PMH of lung cancer with mets to liver on home O2 receiving chemo, ILD, CKD III, iron deficiency anemia, chronic systolic heart failure, paroxysmal atrial fibrillation, history of DVT/PE on anticoagulation and other medical problems listed below who presents from heme onc clinic with low Hb Suspected secondary to chemotherapy for a squamous cancer of the lung with mets. No evidence of active blood loss in the form of hematemesis and or melena or hematochezia Receiving Aranesp for chronic anemia every 3 weeks No bleeding noted. B12 normal, Baseline Hb 8-9, trend of Hb 6.1->8->7.5->7.2 Seen by GI- s/p EGD yesterday which was unremarkable- GI signed off S/p 2 U PRBC on admission but Hb drifts down again- will transfuse 1 more U PRBC and recheck H&H later and tomorrow, give iv lasix after transfusion- If Hb doesn't hold steady, reconsult GI Continue ppi, continue to hold xarelto for now (2) Hypotension: Plan: Presented with hypotension in the clinic. resolved. BP stable (3) Squamous cell carcinoma lung: Plan: On chemo (4) Chronic respiratory failure with hypoxia: Plan: Follows with Dr. Petersen of [facility] and was seen in follow up earlier today. Chemo regimen includes gemcitabine and the carboplatin chemotherapy which was started in December 2021 Continue 2L NC O2 No worsening of his symptoms (5) Chronic systolic heart failure: Plan: Echo from December 2021 with reduced EF 45-50%, aortic sclerosis continue home dose of lasix, will give 1 dose of iv lasix with transfusion today Overall volume status stable. 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 Continue supplemental Oxygen (8) CKD (chronic kidney disease), stage III: Plan: Cr at baseline ~1.7. Continue to monitor with daily BMP (9) CAD (coronary artery disease): Plan: Stable. Continue statin, Toprol (10) Deep vein thrombosis: Plan: On Xarelto-on hold right now (11) nursing home (current) use of anticoagulants: Plan: H/o DVT/PE in 2016. Holding Xarelto for now in setting of anemia requiring transfusion (12) Paroxysmal atrial fibrillation: Plan: Continue Toprol. Holding ac for now as above DVT Ppx: SCDs. xarelto on hold Dispo- transfuse 1 U PRBC today and monitor H and H. PT eval pending Admission and Anticipated Discharge Date Admission Date: May 26, 2022 Subjective Feels much better. Asking when he will be released. No chest pain, shortness of breath, nausea, vomiting. No BM since admission and asking for stool softener. Physical Exam Physical Exam: General: Lying comfortably in bed, not in distress, on NC HEENT: EOMI, KAVON, MMM Chest: Fair breath sounds bilaterally with basilar rales CVS: Regular rate and rhythm, normal heart sounds, no murmur Abdomen: Soft, non tender, not distended, normal bowel sounds Neuro: Awake, alert, oriented, conversing well, non focal Extremities: trace edema Results & Data Results & Data ([facility]) Vital Signs (Past 12 Hours) Vital Signs Temp Pulse Pulse Resp BP BP Pulse Ox 05/28/22 13:42 85 16 106/64 97 05/28/22 12:42 82 18 100/66 93 05/28/22 12:23 05/28/22 12:12 78 16 107/72 99 05/28/22 11:57 36.5 C 87 16 105/68 99 05/28/22 11:30 36.4 C L 78 16 106/69 93 05/28/22 07:45 36.6 C 84 20 133/79 96 05/28/22 02:55 36.8 C 85 18 109/62 98 O2 Del Method O2 Flow Rate 05/28/22 13:42 3 05/28/22 12:42 3 05/28/22 12:23 Nasal Cannula 3 05/28/22 12:12 05/28/22 11:57 05/28/22 11:30 3 05/28/22 07:45 Nasal Cannula 3 05/28/22 02:55 Nasal Cannula 3 Laboratory Results Short CBC 05/28/22 Range/Units 07:23 WBC 4.35 L (4.8-10.8) K/ul Hgb 7.2 L (14.0-18.0) g/dl Hct 22.9 L (40.1-51.0) % Plt Count 391 (130-400) K/uL BMP 05/28/22 07:23 Sodium 136 Potassium 3.9 Chloride 98 Carbon Dioxide 31 BUN 28 H Creatinine 1.76 H Glucose 114 H Calcium 8.3 L Medications Administered Current Inpatient Medications Acetaminophen (Acetaminophen 325 Mg Tab) 650 mg PO Q4H PRN PRN Reason: Pain or Fever Stop: 06/25/22 19:00 Acetaminophen (Acetaminophen 325 Mg Tab) 650 mg PO TODAY@1100 [facility] Stop: 05/28/22 18:00 Last Admin: 05/28/22 12:18 Dose: 650 mg Albuterol (Albuterol Hfa 8 Gm Inhaler) 2 puffs INH Q4H PRN PRN Reason: shortness of breath or wheezing Stop: 06/25/22 19:00 Allopurinol (Allopurinol 100 Mg Tab) 100 mg PO QAM [facility] Stop: 06/27/22 08:59 Last Admin: 05/28/22 08:12 Dose: 100 mg Atorvastatin Calcium (Atorvastatin 40 Mg Tab) 40 mg PO HS AMBER Stop: 06/25/22 20:59 Last Admin: 05/27/22 20:18 Dose: 40 mg Cetirizine HCl (Cetirizine Hcl 10 Mg Tablet) 5 mg PO QAM [facility] Stop: 06/27/22 08:59 Last Admin: 05/28/22 08:11 Dose: 5 mg Cyanocobalamin (Cyanocobalamin (B-12) 100 Mcg Tablet) 100 mcg PO DAILY AMBER Stop: 06/27/22 08:59 Last Admin: 05/28/22 08:12 Dose: 100 mcg Folic Acid (Folic Acid 1 Mg Tab) 1 mg PO QDL [facility] Stop: 06/26/22 11:29 Last Admin: 05/28/22 12:48 Dose: 1 mg Furosemide (Furosemide 40 Mg Tab) 40 mg PO QAM [facility] Stop: 06/26/22 08:59 Last Admin: 05/28/22 08:12 Dose: 40 mg Furosemide (Furosemide 40 Mg/4 Ml Vial) 40 mg IV TODAY@1100 [facility] Stop: 05/28/22 20:00 Pantoprazole Sodium 40 mg/ (Syringe) 10 mls @ 5 mls/min IV Q12H AMBER Stop: 06/25/22 19:59 Last Admin: 05/28/22 08:10 Dose: 5 mls/min Sodium Chloride (Nss) 250 mls @ 15 mls/hr IV .[id number] PRN PRN Reason: For Transfusion Stop: 05/28/22 20:23 Sodium Chloride (Nss) 250 mls @ 15 mls/hr IV .[id number] PRN PRN Reason: For Transfusion Stop: 05/28/22 20:53 Metoprolol Succinate (Metoprolol Succ 50mg Ext Rel Tab) 50 mg PO BID AMBER Stop: 06/25/22 20:59 Last Admin: 05/28/22 08:11 Dose: 50 mg Ondansetron HCl (Ondansetron Inj 2 Mg/Ml 2 Ml Vial) 4 mg IV Q6H PRN PRN Reason: Nausea Stop: 06/25/22 19:00 Polyethylene Glycol (Polyethylene (Miralax) 17 Gm Pack) 17 gm PO DAILY PRN PRN Reason: Constipation Stop: 06/25/22 19:00 Polyethylene Glycol (Polyethylene (Miralax) 17 Gm Pack) 17 gm PO DAILY AMBER Stop: 06/27/22 14:04 Senna/Docusate Sodium (Docusate Sodium/Senna 50/8.6mg Tab) 2 tab PO BID AMBER Stop: 06/27/22 20:59 Vitamin D (Cholecalciferol 1,000 Units 25 Mcg Tab) 2,000 units PO QDL AMBER Stop: 06/27/22 08:59 Last Admin: 05/28/22 12:48 Dose: 2,000 units (1) Squamous cell carcinoma lung Laterality: unspecified laterality Qualified Code(s): C34.90 - Malignant neoplasm of unspecified part of unspecified bronchus or lung
[2022-05-28] MEDS: POLYETHYLENE (MIRALAX) 17 GM PACK PO SCH (15:37)
[2022-05-28 16:56] LABS: Hemoglobin 8.3 g/dl (14.0-18.0)
[2022-05-28] MEDS: ATORVASTATIN 40 MG TAB PO SCH (20:40)
[2022-05-28] MEDS: DOCUSATE SODIUM/SENNA 50/8.6MG TAB PO SCH (20:40)
[2022-05-28] MEDS: MAGNESIUM OXIDE 400 MG TAB PO SCH (20:41)
[2022-05-29 07:01] LABS: Hematocrit (blood only) 28.8 % (40.1-51.0); Hemoglobin 9.2 g/dl (14.0-18.0); Mean Corpuscular Hemoglobin 32.2 pg (25.0-34.0); Mean Corpuscular Hgb Conc 31.9 g/dL (32.0-36.0); Mean Corpuscular Volume 100.7 fL (80.0-100.0); Mean Platelet Volume 10.8 fL (9.4-12.4); Nucleated RBC # (auto) 0.14 K/uL (0-0); Nucleated RBC % (auto) 2.8 %; Platelet Count 404 K/uL (130-400); RDW Coefficient of Variation 23.8 % (11.5-14.5); RDW Standard Deviation 82.6 fL (36.4-46.3); Red Blood Count 2.86 M/uL (4.63-6.08); White Blood Count 5.03 K/ul (4.8-10.8)
[2022-05-29 07:40] LABS: Calcium 9.1 mg/dl (8.5-10.1); Creatinine Clr Calc Pharmacy 54.9 ml/min; Est GFR (African American) 51.5 ml/min; Est GFR (Non-African American) 44.5 ml/min; Magnesium 1.5 mg/dl (1.7-2.4); Potassium 4.2 mmol/L (3.5-5.1)
[2022-05-29 07:46] LABS: Ferritin 1156.3 ng/ml (8-388)
[2022-05-29] MEDS: PANTOprazole 40 MG in SYRINGE 0 ML IV SCH (08:21)
[2022-05-29] MEDS ORDERED: MAGNESIUM SULFATE / D5W 1 GM/100 ML BAG IV ONE (08:24)
[2022-05-29] MEDS: MAGNESIUM OXIDE 400 MG TAB PO SCH (08:25)
[2022-05-29] MEDS: DOCUSATE SODIUM/SENNA 50/8.6MG TAB PO SCH (08:25)
[2022-05-29] MEDS: METOPROLOL SUCC 50MG EXT REL TAB PO SCH (08:25)
[2022-05-29] MEDS: FUROSEMIDE 40 MG TAB PO SCH (08:26)
[2022-05-29] MEDS: CETIRIZINE HCL 10 MG TABLET PO SCH (08:26)
[2022-05-29] MEDS: POLYETHYLENE (MIRALAX) 17 GM PACK PO SCH (08:26)
[2022-05-29] MEDS: CYANOCOBALAMIN (B-12) 100 MCG TABLET PO SCH (08:26)
[2022-05-29] MEDS: allopurinoL 100 MG TAB PO SCH (08:26)
[2022-05-29] MEDS: CHOLECALCIFEROL 1,000 UNITS 25 MCG TAB PO SCH (11:33)
[2022-05-29] MEDS: FOLIC ACID 1 MG TAB PO SCH (11:33)
--- NOTE | 2022-05-29 12:29 | Discharge Summary ---
Date of Service May 29, 2022 Admission HPI Per Admitting Provider This is a 71yo M with a PMH of lung cancer with mets to liver on home O2 receiving chemo, ILD, CKD III, iron deficiency anemia, chronic systolic heart failure, paroxysmal atrial fibrillation, history of DVT/PE on anticoagulation and other medical problems listed below who presents from heme onc clinic with hypotension and symptomatic anemia. Follows with Dr. Petersen of heme onc and was seen in follow up earlier today. Chemo regimen includes gemcitabine and the carboplatin chemotherapy which was started in December 2021. At heme onc appointment, patient was found to be hypotensive and OP lab work revealed hgb of 5.9 (baseline 7-8). Sent to ED for further treatment and evaluation. Family at bedside states that patient has seemed weaker than usual and more short of breath with exertion. Is on 2 L nasal cannula oxygen at baseline. Patient denies any lightheadedness, chest pain or palpitations. No fever, chills, congestion, wheezing, nausea, vomiting, abdominal pain, dysuria, diarrhea or constipation. No hematochezia or melena lately. No change to bowel habits. Has h/o GI bleeding in 2019 but GI work up with EGD and colonoscopy was negative for active bleeding or lesions other than non bleeding duodenal ulcer and he required 2 U PRBC at that time. Denies epistaxis. Weight is 224 today (recent baseline ~ 220, per ). He is on anticoagulation for history of DVT/PE in 2016. Longstanding anemia with baseline hgb 7-8. Recently started on Aranesp for anemia and receives every 3 weeks. Admission Exam Per Admitting Provider General Appearance:WD/WN, vitals as above, NAD, sitting up in bed, pleasant, pale Head: normocephalic, atraumatic Eyes:normal inspection, PERRL, conjunctivae normal, anicteric sclerae ENT: external ear and nose normal, oropharynx normal Neck: normal visual inspection, trachea midline, no thyromegaly Respiratory:normal respiratory effort, bibasilar rales, no wheeze or rhonchi. No accessory muscle use Cardiovascular: regular rate, rhythm, no murmur, normal peripheral pulses, no BLE edema. Vessels: no JVD Chest: normal inspection of chest Abdomen/GI: normal bowel sounds, soft, nontender, no hepatosplenomegaly Extremities/Musculoskeletal: no cyanosis or clubbing, extremities motor strength 5/5 Neurologic: PERRL, EOMI, accommodation nl, no face palsy, no dysarthria, CN's II-XI intact bilaterally and moves all extremities Psychiatric:A+Ox3, euthymic affect Skin: no rashes, pale, warm/dry Principal Diagnosis Acute on chronic anemia, lung cancer, chronic systolic CHF, chronic hypoxic respiratory failure, PAF Discharge Exam General: Lying comfortably in bed, not in distress, on NC HEENT: EOMI, KAVON, MMM Chest: Fair breath sounds bilaterally with basilar rales CVS: Regular rate and rhythm, normal heart sounds, no murmur Abdomen: Soft, non tender, not distended, normal bowel sounds Neuro: Awake, alert, oriented, conversing well, non focal Extremities: trace edema Discharge Data Allergies Allergy/AdvReac Type Severity Reaction Status Date / Time diphtheria toxoid,fluid Allergy Severe CONVULSIONS--HORSE Verified 05/27/22 13:24 SERUM BASE tetanus toxoid, adsorbed Allergy Severe CONVULSIONS--HORSE Verified 05/27/22 13:24 SERUM BASE Consultations 05/26/22 15:23 Consult Gastroenterology Routine 05/26/22 17:06 ED Decision to Admit Stat Procedures Performed Operation Date: 05/27/22 16:45 Actual Procedures p Esophagogastroduodenoscopy - Andres Duggan MD Ordered Studies Laboratory Results WBC 5.03 K/ul (4.8-10.8) 05/29/22 05:49 RBC 2.86 M/uL (4.63-6.08) L 05/29/22 05:49 Hgb 9.2 g/dl (14.0-18.0) L 05/29/22 05:49 Hct 28.8 % (40.1-51.0) L 05/29/22 05:49 MCV 100.7 fL (80.0-100.0) H 05/29/22 05:49 MCH 32.2 pg (25.0-34.0) 05/29/22 05:49 MCHC 31.9 g/dL (32.0-36.0) L 05/29/22 05:49 RDW Std Deviation 82.6 fL (36.4-46.3) H 05/29/22 05:49 RDW Coeff of Yogi 23.8 % (11.5-14.5) H 05/29/22 05:49 Plt Count 404 K/uL (130-400) H 05/29/22 05:49 MPV 10.8 fL (9.4-12.4) 05/29/22 05:49 Immature Gran % (Auto) 1.1 % 05/28/22 07:23 Neut % (Auto) 48.3 % 05/28/22 07:23 Lymph % (Auto) 21.1 % 05/28/22 07:23 [place] % (Auto) 26.0 % 05/28/22 07:23 Eos % (Auto) 3.0 % 05/28/22 07:23 Baso % (Auto) 0.5 % 05/28/22 07:23 Reticulocyte % (Auto) 7.8 % (0.5-2.0) H 05/26/22 11:54 Neut # (Auto) 2.10 K/uL (1.4-6.5) 05/28/22 07:23 Lymph # (Auto) 0.92 K/uL (1.2-3.4) L 05/28/22 07:23 [place] # (Auto) 1.13 K/uL (0.24-0.82) H 05/28/22 07:23 Eos # (Auto) 0.13 K/uL (0-0.50) 05/28/22 07:23 Baso # (Auto) 0.02 K/uL (0-0.2) 05/28/22 07:23 Reticulocyte # 0.14 10^6/uL (0.02-0.10) H 05/26/22 11:54 Immature Gran # (Auto) 0.05 K/uL (0.00-0.02) H 05/28/22 07:23 Absolute Nucleated RBC 0.14 K/uL (0-0) H 05/29/22 05:49 Nucleated RBC % (auto) 2.8 % 05/29/22 05:49 Polychromasia 1+ 05/28/22 07:23 Anisocytosis Present 05/28/22 07:23 Macrocytosis Present 05/26/22 11:54 Ovalocytes 1+ 05/26/22 11:54 PT 14.0 Seconds (9.0-12.0) H 05/27/22 09:39 INR 1.3 (0.9-1.1) H 05/27/22 09:39 APTT 40.5 Seconds (21.0-31.0) H 05/26/22 11:54 PTT Ratio 1.5 05/26/22 11:54 Sodium 138 mmol/L (136-145) 05/29/22 05:49 Potassium 4.2 mmol/L (3.5-5.1) 05/29/22 05:49 Chloride 98 mmol/L (98-107) 05/29/22 05:49 Carbon Dioxide 31 mmol/L (21-32) 05/29/22 05:49 Anion Gap 9 (3-11) 05/29/22 05:49 BUN 29 mg/dl (6-23) H 05/29/22 05:49 Creatinine 1.53 mg/dl (0.6-1.4) H 05/29/22 05:49 Est Cr Clr Drug Dosing 54.9 ml/min 05/29/22 05:49 Est GFR ( Amer) 51.5 ml/min 05/29/22 05:49 Est GFR (Non-Af Amer) 44.5 ml/min 05/29/22 05:49 BUN/Creatinine Ratio 19.0 (10-20) 05/29/22 05:49 Glucose 96 mg/dl (70-99(Fasting)) 05/29/22 05:49 POC Glucose 112 mg/dl (70-99) H 05/27/22 07:14 Calcium 9.1 mg/dl (8.5-10.1) 05/29/22 05:49 Phosphorus 3.5 mg/dl (2.5-4.9) 05/28/22 07:23 Magnesium 1.5 mg/dl (1.7-2.4) L 05/29/22 05:49 Iron 77 mcg/dl (35-175) 05/26/22 11:54 Unsaturated IBC 234 mcg/dl (155-355) 05/26/22 11:54 Ferritin 1156.3 ng/ml (8-388) H 05/29/22 05:49 Total Bilirubin 0.7 mg/dl (0.2-1.0) 05/26/22 11:54 AST 28 U/L (13-39) 05/26/22 11:54 ALT 33 U/L (7-52) 05/26/22 11:54 Alkaline Phosphatase 176 U/L (34-104) H 05/26/22 11:54 Lactate Dehydrogenase 357 U/L (86-244) H 05/26/22 21:07 Troponin I High Sens 15.8 pg/ml (0-20) 05/26/22 11:54 Total Protein 7.9 gm/dl (6.0-8.3) 05/26/22 11:54 Albumin 3.9 gm/dl (3.4-5.0) 05/26/22 11:54 Globulin 4.0 gm/dl (2.5-4.0) 05/26/22 11:54 Albumin/Globulin Ratio 1.0 (0.9-2) 05/26/22 11:54 Vitamin B12 735 pg/ml (180-914) 05/27/22 06:09 SARS-CoV-2, RNA, NAAT NEGATIVE (NEGATIVE) 05/26/22 15:37 Blood Type O Positive 05/26/22 11:54 Antibody Screen NEGATIVE 05/26/22 11:54 Direct Antiglob Test Negative (Negative) 05/26/22 11:54 DERRICK (IgG-AHG) Neg (Negative) 05/26/22 11:54 DERRICK, Polyspecific Neg (Negative) 05/26/22 11:54 DERRICK C3b, C3d 5 Min Neg (Negative) 05/26/22 11:54 Crossmatch See Detail 05/26/22 11:54 Impressions Chest X-Ray 05/26/22 11:47 XR chest 1V portable CLINICAL HISTORY: SOB. COMPARISON STUDY: 03/01/2022 and 12/30/2021 TECHNIQUE: 1 view of the chest FINDINGS: Single frontal view of the chest demonstrates the heart to again be enlarged status post pacer placement. Compared to the previous examinations, prominence of the interstitial markings is again seen at the lung bases characteristic of chronic interstitial lung disease. This is essentially unchanged. The lungs are clear of acute alveolar opacities. There is no evidence for pleural effusion. There is no evidence for vascular congestion. There is no acute osseous pathology. IMPRESSION: 1. Compared to the previous studies, there is again evidence for interstitial fibrotic changes at both lung bases. 2. Cardiomegaly, pacer. Otherwise no acute chest disease. ACT 112: Negative or not required by law. Electronically signed by: William Castaneda M.D. 05/26/2022 1:47 PM Hospital Course (1) Acute on chronic anemia: This is a 71yo M with a PMH of lung cancer with mets to liver on home O2 receiving chemo, ILD, CKD III, iron deficiency anemia, chronic systolic heart failure, paroxysmal atrial fibrillation, history of DVT/PE on anticoagulation and other medical problems listed below who presents from heme onc clinic with low Hb Suspected secondary to chemotherapy for a squamous cancer of the lung with mets. No evidence of active blood loss in the form of hematemesis and or melena or hematochezia Receiving Aranesp for chronic anemia every 3 weeks No bleeding noted. B12 normal, iron studies do not suggest iron deficiency but anemia of chronic illness. Baseline Hb 8-9, trend of Hb 6.1->8->7.5->7.2->8.3->9.2 Seen by GI- s/p EGD which was unremarkable- GI signed off. Anemia attributed to chronic illness S/p 3 U PRBC on admission and Hb has remained stable without no evidence of bleeding (2) Hypotension: Presented with hypotension in the clinic. resolved. BP stable (3) Squamous cell carcinoma lung: On chemo (4) Chronic respiratory failure with hypoxia: Follows with Dr. Petersen of [facility] and was seen in follow up earlier today. Chemo regimen includes gemcitabine and the carboplatin chemotherapy which was started in December 2021 2step O2 eval performed. 2L O2 at rest and 4L with activities. Has home oxygen already. No worsening of his symptoms (5) Chronic systolic heart failure: Echo from December 2021 with reduced EF 45-50%, aortic sclerosis continue home dose of lasix Overall volume status stable. 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 Continue supplemental Oxygen (8) CKD (chronic kidney disease), stage III: Cr at baseline ~1.5-1.7, stable (9) CAD (coronary artery disease): Stable. 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 continue xarelto (11) Paroxysmal atrial fibrillation: Continue Toprol. Continue xarelto Plan Seen by PT and cleared for discharge home with recommendations to maintain single level set up and avoid small step at home. Recommended to continue with his usual PT. He is comfortable and stable for discharge home and feels great. Total Time Total Time Spent Total Time Spent (In Minutes): 45 Discharge Plan Discharge Items Patient Disposition: Home - Self-Care Reason For Visit: SYMPTOMATIC ANEMAI, LUNG CANCER, HYPOTENSION Discharge Diagnosis: Acute on chronic anemia, lung cancer, chronic systolic CHF, chronic hypoxic respiratory failure, PAF Activity: Resume your previous activity Non-emergency contact: Primary Care Provider Call non-emergency contact if: you have any medication questions, your symptoms worsen, your pain is concerning for you and you have a fever Follow-up/Referrals: Chandrakant Herron MD [Primary Care Provider] - Diet: Carb Consistent or DM2 and Heart Healthy Fluids: 1500ml (6 cups) Addtl Attending Provider Instructions: We have not changed any of your medications Your low hemoglobin was likely from the chemo and cancer. We did not find any source of bleeding. Recommend repeat blood work (CBC) in a week to ensure hemoglobin remains stable Follow up with cancer doctor for your cancer treatment Continue your outpatient physical therapy Pending Studies at Discharge: No Stand-Alone Forms: My [email or web address], Smoking Cessation Medications and DC Order Prescriptions: New magnesium oxide 400 mg (241.3 mg magnesium) Tablet 400 mg PO QAM Qty: 30 0RF Continued pantoprazole 20 mg tablet,delayed release (DR/EC) 20 mg PO DAILY Qty: 90 3RF folic acid 1 mg tablet 1 mg PO QDL metoprolol succinate 50 mg tablet extended release 24 hr 50 mg PO BID cetirizine [Zyrtec] 10 mg tablet 5 mg PO QAM atorvastatin 40 mg Tablet 40 mg PO HS cholecalciferol (vitamin D3) [Vitamin D3] 25 mcg (1,000 unit) Capsule 2,000 unit PO QDL albuterol sulfate 90 mcg/actuation HFA aerosol inhaler 2 inh inhalation Q4H PRN (Reason: shortness of breath or wheezing) Qty: 8.5 0RF Xarelto 15 mg Tablet 15 mg PO HS Qty: 30 0RF furosemide 40 mg tablet 40 mg PO QAM Qty: 0 0RF ondansetron HCl 8 mg tablet 8 mg PO Q8H PRN (Reason: Nausea) prochlorperazine maleate 10 mg tablet 10 mg PO Q6H PRN (Reason: Nausea) cyanocobalamin (vitamin B-12) [Vitamin B-12] 100 mcg Tablet 100 mcg PO DAILY allopurinol 100 mg tablet 100 mg PO QAM Discharge Orders: Discharge Order (Routine); Ordered 05/29/22 Ordered By: Jones Berrios Admission Data Admit Date/Time: 05/26/22 14:21 Attending Provider: Jones Berrios Admit Provider: Jones Berrios Primary Care Provider: Chandrakant Herron Other Providers: Jones Berrios ; Pieter Nathan
== END 2022-05-29 14:16 | disposition home or self-care (01) | DRG 378 ==
LOC: ED 11:40 → SUATTDRO 14:21 → EDINP 14:21 → 2E 19:14

== ENCOUNTER 2022-06-05 17:38 | Inpatient (IN) ==
[2022-06-05] MEDS ORDERED: CEFEPIME 2,000 MG/20 ML VIAL IV STA (18:16)
--- NOTE | 2022-06-05 18:17 | Emergency Department Note ---
Impression & Plan Hypotension, SOB (shortness of breath), Anemia, Weakness, Confusion, Leukocytosis, Hypomagnesemia ED Provider Note NAME: CRISTOBAL OVIEDO JR AGE: 71 SEX: M : 1950 ARRIVES VIA: Walk-In INFORMANT: [Patient][family] ED PROVIDER(S): [Be Olson MD] CHIEF COMPLAINT: Short of breath HISTORY OF PRESENT ILLNESS: The patient is a 71-year-old male who has had increasing shortness of breath for 3 days. He has been weaker. He has been coughing more. His believes he has been a bit slow to respond and somewhat confused at times. She feels his hemoglobin may again be low. The patient did have chemotherapy 3 days ago. 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 He was just in our hospital and discharged a week ago. He was in for anemia, he received packed red blood cells with a nice increase in his hemoglobin. An EGD was done and there was no source for bleeding by EGD. The patient has not had chest pain. There has been no fever. No abdominal pain . The patient's notes that his left arm has been swollen since he received chemotherapy through a vein in that arm. It has been 2 weeks now. She also noticed some erythema across the dorsum of the wrist more recently. REVIEW OF SYSTEMS: See HPI for pertinent positives and negatives. A total of ten systems were reviewed and were otherwise negative. PMHx/PSHx: See Below SOCIAL HISTORY: See Below. PHYSICAL EXAM: GENERAL: Patient is in no acute distress. HEENT: No acute trauma, normocephalic atraumatic, mucous membranes moist, no nasal congestion, no scleral icterus. NECK: No stridor, no adenopathy, no meningismus, trachea is midline. LUNGS: Crackles bilaterally, more so on the left, no wheezing, no respiratory distress. HEART: No murmur, mildly tachycardic, regular rhythm. ABDOMEN: Soft, nontender, bowel sounds positive, no peritonitis. EXTREMITIES: No cyanosis. The patient does have a left upper extremity edema. There is a small area of erythema across the dorsum of the left wrist where it appears his IV had been placed in the past. NEUROLOGIC: Oriented x 3, no acute motor or sensory deficits, no focal weakness. SKIN: No rash, no jaundice, no diaphoresis. Pale. DIFFERENTIAL DIAGNOSIS: Infection, dehydration, UTI, CHF, COVID-19, metabolic abnormality, hypo/hyperglycemia, electrolyte disturbance, anemia, hypoxia, cardiac sources, intracerebral event, toxicologic issues, stroke, TIA, as well as other pathologies. EMERGENCY DEPARTMENT COURSE/PROCEDURES: ECG: Indication was shortness of breath. The ECG shows a sinus tachycardia with a rate of 116. PVCs are seen. There is an old inferior infarct. There is some nonspecific ST change. There is no ST elevation. QTc is 419. Continuous Cardiac Monitoring: An order was placed for continuous cardiac monitoring. The monitor shows a rate of 99 with normal sinus rhythm. Critical Care Note: I have personally spent 43 minutes of critical care time in the direct management of this patient. This includes bedside care, interpretation of diagnostic studies, and testing, discussion with consultants, patient, and family members, and other required patient management activities. This 43 minutes is in excess of all separately billable procedures. MEDICAL DECISION MAKING: There is a mild leukocytosis, this is concerning for infection. There was a hemoglobin of 9, patient is anemic but this is stable compared to a recent test. There was a normal platelet count. INR was elevated at 1.4. Sodium low at 131. Creatinine was elevated at 1.`57, this is a chronic issue for the patient. Lactic acid level was not elevated making severe sepsis less likely. Magnesium was low 1.3. There were some liver enzyme elevations noted. Ammonia level was not elevated. BNP was slightly elevated consistent with some fluid overload. ECG showed a sinus tachycardia, there is no obvious acute ischemia. Cardiac enzyme testing x1 was slightly elevated. This elevation could be from cardiac injury or potentially demand mismatch. The patient appeared to be in euthyroid state. Urinalysis did not show obvious infection. COVID test returned negative. Chest x-ray showed some lower lung congestion which actually appeared improved compared to recent films. Left upper extremity venous ultrasound did not show DVT. There was no obvious focal infiltrate, no pneumothorax. The patient received IV saline, 500 cc. He was given IV magnesium, IV cefepime. I did not give 30 cc/kg of saline as the patient is a history of heart failure. The patient was borderline hypotensive while here in the ED, his blood pressure did seem to improve with the administration of IV fluids. Infection is a concern for his presentation. Further work-up and care in the hospital is warranted. I spoke with the patient and case management. The on- call hospitalist was consulted. Past Med/Surg History Medical History Acute GI bleeding Atrial fibrillation dx 2016 - follows w/ Dr. Trejo Chronic systolic heart failure CKD (chronic kidney disease), stage III Congestive heart failure Deep vein thrombosis RLE - 2016 dx while hospitalized w/ pneumonia Duodenal ulcer Hearing deficit [facility] Hematoma of left lower extremity Osteoarthritis Pneumonia Pulmonary embolism 2016 - dx while hospitalized w/ pneumonia - on xarelto Surgical History History of appendectomy History of cardiac catheterization 2016 - [place] - no stents History of cardioversion 11/08/2016 History of carpal tunnel release of both wrists History of cataract surgery History of colonoscopy History of esophagogastroduodenoscopy (EGD) History of evacuation of hematoma LLE History of shoulder surgery Left 2004 History of tonsillectomy Presence of combination internal cardiac defibrillator (ICD) and pacemaker placed 2017 - medtronic - last checked 1 year ago - follows w/ dr. yeh Family History Mother Diabetes Grandfather (Paternal) No problems noted. Father Lymphoma Grandfather (Maternal) Myocardial infarction Other No family history of adverse response to anesthesia Denies family history of Ovarian cancer Prostate cancer Heart disease Breast cancer Colorectal cancer Social History Smoking Status: Never smoker Tobacco Type: Cigarettes Age Quit Using Tobacco: 53; Cigarettes Per Day: 1 pack a day; Second Hand Exposure: No; Hx Alcohol Use: No Hx Substance Use: No Preferred Language: Sami Communication Ability: Effective Visual Impairment: Limited Hearing Ability: Use of Hearing Aid Probate Paralegal Required: No Beliefs That Will Affect Care: None marital status: Current Living Situation: Spouse current occupational status: retired 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 [employer] How many Children do You have: 0 Feels Safe at Home: Yes Childhood Exposure to Second-Hand Smoke: Yes (dad did ) caffeine: Yes (cup of coffee in morning ) Dental Care, Regularly: No Physical Activity Frequency: Does not Exercise Seatbelt Use: always Sunscreen Use: No (doesn't go out in sun ) Assistive Devices: Bedside Commode and Walker Allergies Allergies Allergy/AdvReac Type Severity Reaction Status Date / Time diphtheria toxoid,fluid Allergy Severe CONVULSIONS--HORSE Verified 06/05/22 18:48 SERUM BASE tetanus toxoid, adsorbed Allergy Severe CONVULSIONS--HORSE Verified 06/05/22 18:48 SERUM BASE Home Meds Home Medications Medication Instructions Recorded Confirmed atorvastatin 40 mg tablet 40 mg PO HS 10/29/19 06/05/22 cholecalciferol (vitamin D3) 25 2,000 unit PO QDL 11/20/19 06/05/22 mcg (1,000 unit) capsule (Vitamin D3) folic acid 1 mg tablet 1 mg PO QDL 06/08/20 06/05/22 metoprolol succinate 50 mg 50 mg PO BID 01/04/21 06/05/22 tablet,extended release 24 hr cetirizine 10 mg tablet (Zyrtec) 5 mg PO QAM 08/16/21 06/05/22 ondansetron HCl 8 mg tablet 8 mg PO Q8H PRN Nausea 02/21/22 06/05/22 prochlorperazine maleate 10 mg 10 mg PO Q6H PRN Nausea 02/21/22 06/05/22 tablet allopurinol 100 mg tablet 100 mg PO QAM 05/26/22 06/05/22 cyanocobalamin (vitamin B-12) 100 100 mcg PO DAILY 05/26/22 06/05/22 mcg tablet (Vitamin B-12) Previous Rx's Medication Instructions Recorded albuterol sulfate 90 mcg/actuation 2 inh inhalation Q4H PRN shortness 09/21/21 aerosol inhaler of breath or wheezing #8.5 grams furosemide 40 mg tablet 40 mg PO QAM #0 tabs 12/31/21 rivaroxaban 15 mg tablet (Xarelto) 15 mg PO HS #30 tabs 12/31/21 pantoprazole 20 mg tablet,delayed 20 mg PO DAILY #90 tabs 03/18/22 release magnesium oxide 400 mg (241.3 mg 400 mg PO QAM #30 tabs 05/29/22 magnesium) tablet Results & Data (ED) Vital Signs Vital Signs - 24 hr 06/05/22 17:47 06/05/22 18:12 06/05/22 20:08 Temperature 36.9 C Temperature Source Oral Pulse Rate 99 H Pulse Rate [Left Apical] 108 H Pulse Rhythm [Left Apical] Regular Pulse Strength [Left Apical] Normal Respiratory Rate 22 20 Respiratory Effort / Characteristics Non-Labored Spontaneous Respiratory Depth Normal Blood Pressure 91/61 L Blood Pressure [Right Arm] 88/58 L Blood Pressure Mean 71 Blood Pressure Mean [Right Arm] 68 Blood Pressure Position [Right Arm] Lying Pulse Oximetry 90 99 99 Oxygen Delivery Method Nasal Cannula Nasal Cannula Nasal Cannula Oxygen Flow Rate 2 2 4 Sepsis New/Unexplained Change in Mental Status No Sepsis Action Taken by Nursing No Action Required 06/05/22 19:31 06/05/22 21:03 Temperature Temperature Source Pulse Rate Pulse Rate [Left Apical] 106 H Pulse Rhythm [Left Apical] Regular Pulse Strength [Left Apical] Normal Respiratory Rate 20 Respiratory Effort / Characteristics Non-Labored Respiratory Depth Normal Blood Pressure Blood Pressure [Right Arm] 97/63 L Blood Pressure Mean Blood Pressure Mean [Right Arm] 74 Blood Pressure Position [Right Arm] Pulse Oximetry 96 97 Oxygen Delivery Method Nasal Cannula Nasal Cannula Oxygen Flow Rate 2 4 Sepsis New/Unexplained Change in Mental Status Sepsis Action Taken by Detention Medications Current Medication List: was personally reviewed by me Laboratory Data Attestation: I reviewed the patient's lab results. Result diagrams: 06/05/22 18:09 06/05/22 18:09 Lab Results 06/05/22 06/05/22 06/05/22 Range/Units 18:09 18:09 18:09 WBC 13.54 H (4.8-10.8) K/ul RBC 2.88 L (4.63-6.08) M/uL Hgb 9.0 L (14.0-18.0) g/dl Hct 29.7 L (40.1-51.0) % MCV 103.1 H (80.0-100.0) fL MCH 31.3 (25.0-34.0) pg MCHC 30.3 L (32.0-36.0) g/dL RDW Std Deviation 79.3 H (36.4-46.3) fL RDW Coeff of Yogi 20.8 H (11.5-14.5) % Plt Count 379 (130-400) K/uL MPV 10.7 (9.4-12.4) fL Immature Gran % (Auto) 0.7 % Neut % (Auto) 94.7 % Lymph % (Auto) 2.1 % [place] % (Auto) 2.3 % Eos % (Auto) 0.1 % Baso % (Auto) 0.1 % Neut # (Auto) 12.82 H (1.4-6.5) K/uL Lymph # (Auto) 0.29 L (1.2-3.4) K/uL [place] # (Auto) 0.31 (0.24-0.82) K/uL Eos # (Auto) 0.01 (0-0.50) K/uL Baso # (Auto) 0.01 (0-0.2) K/uL Immature Gran # (Auto) 0.10 H (0.00-0.02) K/uL Anisocytosis Present Stomatocytes 1+ PT 14.4 H (9.0-12.0) Seconds INR 1.4 H (0.9-1.1) APTT (21.0-31.0) Seconds PTT Ratio Sodium 131 L (136-145) mmol/L Potassium 4.6 (3.5-5.1) mmol/L Chloride 93 L (98-107) mmol/L Carbon Dioxide 30 (21-32) mmol/L Anion Gap 8 (3-11) BUN 28 H (6-23) mg/dl Creatinine 1.57 H (0.6-1.4) mg/dl Est Cr Clr Drug Dosing Not Reportable Est GFR ( Amer) 49.9 ml/min Est GFR (Non-Af Amer) 43.1 ml/min BUN/Creatinine Ratio 17.8 (10-20) Glucose 133 H (70-99(Fasting)) mg/dl Lactate (0.4-2.0) mmol/L Calcium 9.4 (8.5-10.1) mg/dl Magnesium 1.3 L (1.7-2.4) mg/dl Total Bilirubin 1.6 H (0.2-1.0) mg/dl AST 81 H (13-39) U/L ALT 70 H (7-52) U/L Alkaline Phosphatase 285 H (34-104) U/L Ammonia (18-72) umol/L Troponin I High Sens 21.8 H (0-20) pg/ml B-Natriuretic Peptide (0-100) pg/ml Total Protein 8.1 (6.0-8.3) gm/dl Albumin 3.5 (3.4-5.0) gm/dl Globulin 4.6 H (2.5-4.0) gm/dl Albumin/Globulin Ratio 0.8 L (0.9-2) TSH SARS-CoV-2, RNA, NAAT (NEGATIVE) Blood Type Antibody Screen 06/05/22 06/05/22 06/05/22 Range/Units 18:09 18:09 18:09 WBC (4.8-10.8) K/ul RBC (4.63-6.08) M/uL Hgb (14.0-18.0) g/dl Hct (40.1-51.0) % MCV (80.0-100.0) fL MCH (25.0-34.0) pg MCHC (32.0-36.0) g/dL RDW Std Deviation (36.4-46.3) fL RDW Coeff of Yogi (11.5-14.5) % Plt Count (130-400) K/uL MPV (9.4-12.4) fL Immature Gran % (Auto) % Neut % (Auto) % Lymph % (Auto) % [place] % (Auto) % Eos % (Auto) % Baso % (Auto) % Neut # (Auto) (1.4-6.5) K/uL Lymph # (Auto) (1.2-3.4) K/uL [place] # (Auto) (0.24-0.82) K/uL Eos # (Auto) (0-0.50) K/uL Baso # (Auto) (0-0.2) K/uL Immature Gran # (Auto) (0.00-0.02) K/uL Anisocytosis Stomatocytes PT (9.0-12.0) Seconds INR (0.9-1.1) APTT (21.0-31.0) Seconds PTT Ratio Sodium (136-145) mmol/L Potassium (3.5-5.1) mmol/L Chloride (98-107) mmol/L Carbon Dioxide (21-32) mmol/L Anion Gap (3-11) BUN (6-23) mg/dl Creatinine (0.6-1.4) mg/dl Est Cr Clr Drug Dosing Est GFR ( Amer) ml/min Est GFR (Non-Af Amer) ml/min BUN/Creatinine Ratio (10-20) Glucose (70-99(Fasting)) mg/dl Lactate 1.6 (0.4-2.0) mmol/L Calcium (8.5-10.1) mg/dl Magnesium (1.7-2.4) mg/dl Total Bilirubin (0.2-1.0) mg/dl AST (13-39) U/L ALT (7-52) U/L Alkaline Phosphatase (34-104) U/L Ammonia (18-72) umol/L Troponin I High Sens (0-20) pg/ml B-Natriuretic Peptide 141 H (0-100) pg/ml Total Protein (6.0-8.3) gm/dl Albumin (3.4-5.0) gm/dl Globulin (2.5-4.0) gm/dl Albumin/Globulin Ratio (0.9-2) TSH Cancelled SARS-CoV-2, RNA, NAAT (NEGATIVE) Blood Type Antibody Screen 06/05/22 06/05/22 06/05/22 Range/Units 18:09 18:20 18:36 WBC (4.8-10.8) K/ul RBC (4.63-6.08) M/uL Hgb (14.0-18.0) g/dl Hct (40.1-51.0) % MCV (80.0-100.0) fL MCH (25.0-34.0) pg MCHC (32.0-36.0) g/dL RDW Std Deviation (36.4-46.3) fL RDW Coeff of Yogi (11.5-14.5) % Plt Count (130-400) K/uL MPV (9.4-12.4) fL Immature Gran % (Auto) % Neut % (Auto) % Lymph % (Auto) % [place] % (Auto) % Eos % (Auto) % Baso % (Auto) % Neut # (Auto) (1.4-6.5) K/uL Lymph # (Auto) (1.2-3.4) K/uL [place] # (Auto) (0.24-0.82) K/uL Eos # (Auto) (0-0.50) K/uL Baso # (Auto) (0-0.2) K/uL Immature Gran # (Auto) (0.00-0.02) K/uL Anisocytosis Stomatocytes PT (9.0-12.0) Seconds INR (0.9-1.1) APTT 34.2 H (21.0-31.0) Seconds PTT Ratio 1.2 Sodium (136-145) mmol/L Potassium (3.5-5.1) mmol/L Chloride (98-107) mmol/L Carbon Dioxide (21-32) mmol/L Anion Gap (3-11) BUN (6-23) mg/dl Creatinine (0.6-1.4) mg/dl Est Cr Clr Drug Dosing Est GFR ( Amer) ml/min Est GFR (Non-Af Amer) ml/min BUN/Creatinine Ratio (10-20) Glucose (70-99(Fasting)) mg/dl Lactate (0.4-2.0) mmol/L Calcium (8.5-10.1) mg/dl Magnesium (1.7-2.4) mg/dl Total Bilirubin (0.2-1.0) mg/dl AST (13-39) U/L ALT (7-52) U/L Alkaline Phosphatase (34-104) U/L Ammonia (18-72) umol/L Troponin I High Sens (0-20) pg/ml B-Natriuretic Peptide (0-100) pg/ml Total Protein (6.0-8.3) gm/dl Albumin (3.4-5.0) gm/dl Globulin (2.5-4.0) gm/dl Albumin/Globulin Ratio (0.9-2) TSH SARS-CoV-2, RNA, NAAT NEGATIVE (NEGATIVE) Blood Type O Positive Antibody Screen NEGATIVE 06/05/22 06/05/22 Range/Units 18:36 20:02 WBC (4.8-10.8) K/ul RBC (4.63-6.08) M/uL Hgb (14.0-18.0) g/dl Hct (40.1-51.0) % MCV (80.0-100.0) fL MCH (25.0-34.0) pg MCHC (32.0-36.0) g/dL RDW Std Deviation (36.4-46.3) fL RDW Coeff of Yogi (11.5-14.5) % Plt Count (130-400) K/uL MPV (9.4-12.4) fL Immature Gran % (Auto) % Neut % (Auto) % Lymph % (Auto) % [place] % (Auto) % Eos % (Auto) % Baso % (Auto) % Neut # (Auto) (1.4-6.5) K/uL Lymph # (Auto) (1.2-3.4) K/uL [place] # (Auto) (0.24-0.82) K/uL Eos # (Auto) (0-0.50) K/uL Baso # (Auto) (0-0.2) K/uL Immature Gran # (Auto) (0.00-0.02) K/uL Anisocytosis Stomatocytes PT (9.0-12.0) Seconds INR (0.9-1.1) APTT (21.0-31.0) Seconds PTT Ratio Sodium (136-145) mmol/L Potassium (3.5-5.1) mmol/L Chloride (98-107) mmol/L Carbon Dioxide (21-32) mmol/L Anion Gap (3-11) BUN (6-23) mg/dl Creatinine (0.6-1.4) mg/dl Est Cr Clr Drug Dosing Est GFR ( Amer) ml/min Est GFR (Non-Af Amer) ml/min BUN/Creatinine Ratio (10-20) Glucose (70-99(Fasting)) mg/dl Lactate (0.4-2.0) mmol/L Calcium (8.5-10.1) mg/dl Magnesium (1.7-2.4) mg/dl Total Bilirubin (0.2-1.0) mg/dl AST (13-39) U/L ALT (7-52) U/L Alkaline Phosphatase (34-104) U/L Ammonia 19.0 (18-72) umol/L Troponin I High Sens (0-20) pg/ml B-Natriuretic Peptide (0-100) pg/ml Total Protein (6.0-8.3) gm/dl Albumin (3.4-5.0) gm/dl Globulin (2.5-4.0) gm/dl Albumin/Globulin Ratio (0.9-2) TSH 1.222 SARS-CoV-2, RNA, NAAT (NEGATIVE) Blood Type Antibody Screen Administered Medications Sodium Chloride (Nss 1000ml) 1,000 mls @ 100 mls/hr IV .Q10H AMBER Stop: 06/06/22 20:32 Last Admin: 06/06/22 00:54 Dose: 100 mls/hr Documented By: JRE Discontinued Medications Cefepime HCl (Maxipime) 2,000 mg in 20 mls @ 5 mls/min IV NOW STA; Protocol Stop: 06/05/22 18:19 Last Admin: 06/05/22 19:21 Dose: 5 mls/min Documented By: YON Magnesium Sulfate/Dextrose (Magnesium Sulfate / D5w) 1 gm in 100 mls @ 100 mls/hr IV Q1H AMBER Stop: 06/05/22 21:17 Last Infusion: 06/05/22 22:34 Dose: 0 mls/hr Documented By: Admin: 06/05/22 21:17 Dose: 100 mls/hr Documented By: Infusion: 06/05/22 21:17 Dose: 0 mls/hr Documented By: Admin: 06/05/22 20:08 Dose: 100 mls/hr Documented By: TW Sodium Chloride (Nss 1000ml) 500 mls @ 999 mls/hr IV .Q31M ONE Stop: 06/05/22 20:53 Last Infusion: 06/05/22 21:48 Dose: 0 mls/hr Documented By: Admin: 06/05/22 20:44 Dose: 999 mls/hr Documented By: AP Imaging Data Radiologist's Impression: Chest X-Ray 06/05/22 18:08 XR chest 1V portable HISTORY: 71 years-old Male weakness acute weakness COMPARISON: Chest radiograph 05/26/2022 TECHNIQUE: Portable AP view of the chest FINDINGS: Cardiac silhouette is enlarged. Left subclavian pacer/AICD. Chronic reticular interstitial opacities. No pneumothorax or large pleural effusion. Unchanged moderate hemidiaphragmatic elevation. Bibasilar airspace opacities. Degenerative changes of the shoulders and spine. IMPRESSION: 1. Cardiomegaly with chronic interstitial lung disease. 2. Bibasilar densities suggest atelectasis. Superimposed pneumonitis is considered less likely. ACT 112: Negative or not required by law. The above report was generated using voice recognition software. It may contain grammatical, syntax or spelling errors. Electronically signed by: Rogelio Sapp M.D. 06/05/2022 7:13 PM Extremity Venous Study 06/05/22 18:17 US venous doppler UE LT HISTORY: 71 years-old Male swelling acute pain and swelling of left upper extremity COMPARISON: None TECHNIQUE: Multiple real-time sonographic images of the left upper extremity deep venous structures were obtained assessing grayscale appearance, color and spectral flow FINDINGS: Normal flow and phasicity. IMPRESSION: No DVT. ACT 112: Negative or not required by law. The above report was generated using voice recognition software. It may contain grammatical, syntax or spelling errors. Electronically signed by: Rogelio Sapp M.D. 06/05/2022 8:04 PM Discharge Plan Visit Data Chief Complaint: Shortness of Breath/Dyspnea Stated Complaint: CHEMO, SOB, L ARM SWOLLEN, WEAKNESS ED Provider: Be Olson Discharge Problem: Hypotension, SOB (shortness of breath), Anemia, Weakness, Confusion, Leukocytosis, Hypomagnesemia Patient Disposition: Admitted As Inpatient Condition: Fair
[2022-06-05 18:36] LABS: Hematocrit (blood only) 29.7 % (40.1-51.0); Mean Corpuscular Hemoglobin 31.3 pg (25.0-34.0); Mean Corpuscular Hgb Conc 30.3 g/dL (32.0-36.0); Mean Corpuscular Volume 103.1 fL (80.0-100.0); Mean Platelet Volume 10.7 fL (9.4-12.4); Platelet Count 379 K/uL (130-400); RDW Coefficient of Variation 20.8 % (11.5-14.5); RDW Standard Deviation 79.3 fL (36.4-46.3); Red Blood Count 2.88 M/uL (4.63-6.08); White Blood Count 13.54 K/ul (4.8-10.8)
[2022-06-05 18:53] LABS: INR 1.4 (0.9-1.1); Prothrombin Time 14.4 Seconds (9.0-12.0)
[2022-06-05 19:08] LABS: Troponin I High Sensitivity 21.8 pg/ml (0-20)
[2022-06-05 19:14] LABS: Alanine Aminotransferase 70 U/L (7-52); Albumin Globulin Ratio 0.8 (0.9-2); Albumin Level 3.5 gm/dl (3.4-5.0); Alkaline Phosphatase 285 U/L (34-104); Anion Gap 8 (3-11); Aspartate Aminotransferase 81 U/L (13-39); BUN Creatinine Ratio 17.8 (10-20); Bilirubin,Total 1.6 mg/dl (0.2-1.0); Blood Urea Nitrogen 28 mg/dl (6-23); Calcium 9.4 mg/dl (8.5-10.1); Carbon Dioxide 30 mmol/L (21-32); Chloride 93 mmol/L (98-107); Est GFR (African American) 49.9 ml/min; Est GFR (Non-African American) 43.1 ml/min; Globulin 4.6 gm/dl (2.5-4.0); Glucose 133 mg/dl (70-99(Fasting)); Magnesium 1.3 mg/dl (1.7-2.4); Potassium 4.6 mmol/L (3.5-5.1); Sodium 131 mmol/L (136-145); Total Protein 8.1 gm/dl (6.0-8.3)
--- NOTE | 2022-06-05 19:14 | XRay Report ---
XR chest 1V portable HISTORY: 71 years-old Male weakness acute weakness COMPARISON: Chest radiograph 05/26/2022 TECHNIQUE: Portable AP view of the chest FINDINGS: Cardiac silhouette is enlarged. Left subclavian pacer/AICD. Chronic reticular interstitial opacities. No pneumothorax or large pleural effusion. Unchanged moderate hemidiaphragmatic elevation. Bibasilar airspace opacities. Degenerative changes of the shoulders and spine. IMPRESSION: 1. Cardiomegaly with chronic interstitial lung disease. 2. Bibasilar densities suggest atelectasis. Superimposed pneumonitis is considered less likely. ACT 112: Negative or not required by law. The above report was generated using voice recognition software. It may contain grammatical, syntax o r spelling errors. Electronically signed by: Rogelio Sapp M.D. 06/05/2022 7:13 PM
[2022-06-05 19:47] LABS: Partial Thromboplastin Ratio 1.2; Partial Thromboplastin Time 34.2 Seconds (21.0-31.0)
[2022-06-05 19:53] LABS: Anisocytosis Present; Basophils # (auto) 0.01 K/uL (0-0.2); Basophils % (auto) 0.1 %; Eosinophils # (auto) 0.01 K/uL (0-0.50); Eosinophils % (auto) 0.1 %; Immature Granulocytes % (auto) 0.7 %; Lymphocytes # (auto) 0.29 K/uL (1.2-3.4); Lymphocytes % (auto) 2.1 %; Monocytes # (auto) 0.31 K/uL (0.24-0.82); Monocytes % (auto) 2.3 %; Neutrophils # (auto) 12.82 K/uL (1.4-6.5); Neutrophils % (auto) 94.7 %; Stomatocytes 1+
--- NOTE | 2022-06-05 20:05 | Ultrasound Report ---
US venous doppler UE LT HISTORY: 71 years-old Male swelling acute pain and swelling of left upper extremity COMPARISON: None TECHNIQUE: Multiple real-time sonographic images of the left upper extremity deep venous structures w ere obtained assessing grayscale appearance, color and spectral flow FINDINGS: Normal flow and phasicity. IMPRESSION: No DVT. ACT 112: Negative or not required by law. The above report was generated using voice recognition software. It may contain grammatical, syntax o r spelling errors. Electronically signed by: Rogelio Sapp M.D. 06/05/2022 8:04 PM
[2022-06-05] MEDS: MAGNESIUM SULFATE / D5W 1 GM/100 ML BAG IV SCH ×2 (20:08→21:17)
[2022-06-05] MEDS ORDERED: SODIUM CHLORIDE 0.9% 1000ML 500 ML IV ONE (20:23)
[2022-06-05 21:31] LABS: Appearance Urine Clear (Clear); Bacteria Urine Automated Negative (Negative); Blood Urine Negative (Negative); Color Urine Dark Yellow; Epithelial Cell Urine Auto >30 /lpf (0-5); Glucose Urine UA Negative (Negative); Ketones Urine Trace (Negative); Leukocyte Esterase Urine 1+ (Negative); Nitrite Urine Negative (Negative); Protein Urine 1+ (Negative); RBC Urine Automated 0-4 /hpf (0-4); Specific Gravity Urine 1.018 (1.000-1.030); Urobilinogen Urine Negative (Negative)
[2022-06-05 21:33] LABS: Bilirubin Urine 1+ (Negative)
[2022-06-06] MEDS ORDERED: ALBUTEROL HFA 8 GM INHALER INH PRN (00:33)
[2022-06-06] MEDS ORDERED: ONDANSETRON INJ 2 MG/ML 2 ML VIAL IV PRN (00:33)
[2022-06-06] MEDS ORDERED: ONDANSETRON 4 MG OD TAB PO PRN (00:33)
[2022-06-06] MEDS ORDERED: NITROGLYCERIN SL 0.4 MG/TAB TAB SL PRN (00:33)
[2022-06-06] MEDS ORDERED: ACETAMINOPHEN 325 MG TAB PO PRN (00:33)
[2022-06-06] MEDS ORDERED: PROCHLORPERAZINE MALEATE 10 MG TAB PO PRN (00:33)
[2022-06-06] MEDS: SODIUM CHLORIDE 0.9% 1000ML 1,000 ML IV SCH ×2 (00:54→13:00)
[2022-06-06] MEDS: DOXYCYCLINE HYCLATE 100 MG in DEXTROSE 5% 100 ML IV SCH ×2 (01:43→16:00)
--- NOTE | 2022-06-06 02:39 | History and Physical Report ---
DATE OF ADMISSION: 06/05/2022. CHIEF COMPLAINT: Shortness of breath, weakness. HISTORY OF PRESENT ILLNESS: A 71-year-old male with past medical history significant for lung cancer with mets to liver, chronic respiratory failure on 2 L of home oxygen, currently receiving chemo, history of interstitial lung disease, chronic kidney disease stage III, iron deficiency anemia, chronic systolic heart failure, paroxysmal atrial fibrillation, history of DVT, PE, on Xarelto, history of CAD, status post AICD, presents with shortness of breath and weakness. The patient had chemo last Monday. There is some redness on the posterior aspect below the left wrist from where chemo was given.. Denies any fever or chills, feeling tired, fatigued and short of breath. Last admission, he was having anemia and required blood transfusion, 3 units of PRBCs were given. EGD was done, which was unremarkable. Anemia was attributed to chronic illness. The patient's was worried that he may having anemia, so brought him into the hospital. Currently, saturating okay on 4 L, blood pressure is soft with systolic blood pressure 90s. White count is 13. Chest x-ray, no obvious findings. Urinalysis is possible UTI. Lower extremity Doppler was negative for DVT and he is already on Xarelto. The patient has mild headache. No neck pain, no back pain, no abdominal pain, no chest pain, no leg pains. No rash seen anywhere. Has some mild runny nose. No blurred visions, no sore throat, mild cough bringing whitish phlegm. Appetite is down, but no difficulty swallowing. As per the , he is not ambulating since January when he developed severe gout from his chemo. ALLERGIES: DIPHTHERIA TOXOID, TETANUS TOXOID. PAST MEDICAL HISTORY: As mentioned above. PAST SURGICAL HISTORY: Appendectomy, bronchoscopy with EBUS, bilateral carpal tunnel surgery, colonoscopy, EGD, hematoma evacuation of the left calf, ICD placement, heart catheterization, repair of the rotator cuff, tonsillectomy, adenoidectomy, bilateral cataracts. MEDICATIONS: The patient is on albuterol 2 puffs inhalation q. 4 hours p.r.n., allopurinol 100 mg p.o. a.m., atorvastatin 40 mg p.o. at bedtime, cetirizine 5 mg p.o. a.m., vitamin D 2000 units p.o. daily, vitamin B12 100 mcg p.o. daily, folic acid 1 mg p.o. daily, Lasix 40 mg p.o. a.m., magnesium oxide 400 mg p.o. a.m., metoprolol succinate 50 mg p.o. b.i.d., Zofran 8 mg p.o. q. 8 hours p.r.n., Protonix 20 mg p.o. daily, prochlorperazine 10 mg p.o. q. 6 hours p.r.n., Xarelto 15 mg p.o. at bedtime. FAMILY HISTORY: Significant for mother has Alzheimer's disease, diabetes, heart disorder; father in 70s from lymphoma. SOCIAL HISTORY: Former smoker, quit in 2006, smoked 1 pack a day for 40 years. No alcohol use. No drug use. REVIEW OF SYSTEMS: As per HPI. Rest of the review of systems is negative. PHYSICAL EXAMINATION: GENERAL: The patient is of moderate build, not in acute distress. VITAL SIGNS: Temperature 36.9, pulse 106, respiratory rate 20, blood pressure 97/63, oxygen 97% on 4 L. HEENT: Pupils equal, round and reactive to light. Oral mucosa moist. NECK: No JVD, no neck masses. CARDIOVASCULAR: S1 and S2 heard. Regular rate and rhythm. No murmur, no gallop. RESPIRATORY SYSTEM: Normal AP diameter. No accessory muscle use. Mild bibasilar crackles. No wheezing. ABDOMEN: Soft, bowel sounds present, nontender, no distention. CENTRAL NERVOUS SYSTEM: Alert and oriented. No facial droop. Speech is clear. Obeys simple commands. EXTREMITIES: No edema, no erythema. LABORATORY DATA: WBC 13.5, hemoglobin 9, hematocrit 29.7, platelets 379. PT 14.4, INR 1.4, APTT is 34.2. Sodium 131, potassium 4.6, chloride 93, bicarbonate 34, BUN 38, creatinine 1.5, serum glucose 133. Lactate 1.6, calcium 9.4, magnesium 1.8, total bilirubin 1.6, AST 81, ALT , alkaline phosphatase 84. Ammonia 19. Troponin I high sensitivity 21. TSH is 1.2. Urinalysis, +1 leukocyte esterase, bacteria negative. SARS-CoV-2 rapid test negative. Venous Doppler of left lower extremity, no DVT. IMAGING DATA: Chest x-ray: Cardiomegaly with chronic interstitial lung disease with bibasilar densities suggestive of atelectasis, superimposed pneumonitis is considered less likely. EKG: Sinus tachycardia with frequent PVCs at a rate of 116. No acute ST changes. ASSESSMENT AND PLAN: A 71-year-old male with history of lung cancer, mets to liver, on chemo, interstitial lung disease, chronic respiratory failure, systolic CHF, status post ICD, AFib, history of DVT, PE, on Xarelto, comes because of shortness of breath and weakness. 1. Shortness of breath and weakness. Had chemo last Monday. On chest x-ray, no obvious findings. The patient is on Xarelto, PE unlikely.Possibly from chemo. Hemoglobulin is 9 today. His blood pressure is running low. Getting fluids. We will monitor in the hospital. 2. Leukocytosis. Blood pressure soft, possible early sepsis as some erythema around the chemo site in his left forearm above the wrist. ER gave empirically cefepime. We will continue with Rocephin and doxycycline. Follow the cultures. Possible UTI. We will follow urine cultures. Getting IV fluids. Holding the Lasix and metoprolol. We will monitor. 3. History of AFib. Currently his blood pressure is on the low side. We will hold metoprolol. We will restart when the pressure comes up, on Xarelto. 4. Chronic systolic CHF, EF was 40-45% on echocardiogram done in December 2021. Getting fluids. Holding Lasix. Monitor for any volume overload. 5. Lung cancer with mets to liver, getting chemo. Follow up with heme/onco 6. Mild elevation of LFTs. Follow the repeat LFTs. 7. Hypomagnesia, replaced in the ER. We will follow the repeat labs. 8. 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 Currently requiring 4lts- will try to taper to 2lts 9. Chronic kidney disease , stage III: Baseline creatinine 1.5-1.7, seems stable. We will follow the labs. 10. History of CAD, on statin, holding beta-harriet because of low blood pressure. Restart when the pressure comes up. 11. History of DVT and PE, on Xarelto. 12. DVT prophylaxis, Xarelto. DISPOSITION: Admit to Med tele. PT/OT prior to discharge. Social service to help with discharge planning. Level 1 full code as per my discussion with the and the patient. Job ID: [id number] MTDD
[2022-06-06 05:58] LABS: Hematocrit (blood only) 23.9 % (40.1-51.0); Hemoglobin 7.4 g/dl (14.0-18.0); Mean Corpuscular Hemoglobin 31.6 pg (25.0-34.0); Mean Corpuscular Volume 102.1 fL (80.0-100.0); Mean Platelet Volume 10.6 fL (9.4-12.4); Platelet Count 313 K/uL (130-400); RDW Coefficient of Variation 20.8 % (11.5-14.5); RDW Standard Deviation 77.9 fL (36.4-46.3); Red Blood Count 2.34 M/uL (4.63-6.08); White Blood Count 12.87 K/ul (4.8-10.8)
[2022-06-06 06:20] LABS: Albumin Level 3.1 gm/dl (3.4-5.0); BUN Creatinine Ratio 17.9 (10-20); Bilirubin Direct 0.7 mg/dl (0-0.2); Bilirubin,Total 1.6 mg/dl (0.2-1.0); Calcium 8.9 mg/dl (8.5-10.1); Est GFR (African American) 48.1 ml/min; Est GFR (Non-African American) 41.5 ml/min; Magnesium 1.6 mg/dl (1.7-2.4); Potassium 4.2 mmol/L (3.5-5.1); Total Protein 7.1 gm/dl (6.0-8.3)
[2022-06-06 06:23] LABS: Basophils # (auto) 0.03 K/uL (0-0.2); Basophils % (auto) 0.2 %; Eosinophils # (auto) 0.02 K/uL (0-0.50); Eosinophils % (auto) 0.2 %; Hypochromasia Present; Immature Granulocytes # (auto) 0.11 K/uL (0.00-0.02); Immature Granulocytes % (auto) 0.9 %; Lymphocytes % (auto) 3.1 %; Monocytes # (auto) 0.27 K/uL (0.24-0.82); Monocytes % (auto) 2.1 %; Neutrophils # (auto) 12.04 K/uL (1.4-6.5); Neutrophils % (auto) 93.5 %; Polychromasia 1+; Stomatocytes 1+; Tear Drop Cells 1+
--- NOTE | 2022-06-06 06:31 | Electrocardiogram Report ---
Test Reason : Blood Pressure : / mmHG Vent. Rate : 116 BPM Atrial Rate : 116 BPM P-R Int : 170 ms QRS Dur : 092 ms QT Int : 302 ms P-R-T Axes : 026 -29 070 degrees QTc Int : 419 ms Sinus tachycardia with frequent Premature ventricular complexes Inferior infarct (cited on or before 03-MAR-2022) Anterior infarct , age undetermined Abnormal ECG When compared with ECG of 26-MAY-2022 11:56, Sinus rhythm has replaced Electronic atrial pacemaker Confirmed by Kris Coy ([id number]) on 06/06/2022 6:31:13 AM Referred By: REFERRED SELF Confirmed By:Kris Coy
[2022-06-06] MEDS: CETIRIZINE HCL 10 MG TABLET PO SCH (08:10)
[2022-06-06] MEDS: allopurinoL 100 MG TAB PO SCH (08:10)
[2022-06-06] MEDS: CYANOCOBALAMIN (B-12) 100 MCG TABLET PO SCH (08:11)
[2022-06-06] MEDS: MAGNESIUM OXIDE 400 MG TAB PO SCH (08:11)
[2022-06-06] MEDS: PANTOprazole 40 MG TAB PO SCH (08:11)
[2022-06-06] MEDS: cefTRIAXone SODIUM 2,000 MG in DEXTROSE 5% 50 ML IV SCH (08:36)
[2022-06-06] MEDS ORDERED: Nursing to Pharmacy Communication SCH (11:15)
[2022-06-06] MEDS: CHOLECALCIFEROL 1,000 UNITS 25 MCG TAB PO SCH (12:11)
[2022-06-06] MEDS: FOLIC ACID 1 MG TAB PO SCH (12:11)
--- NOTE | 2022-06-06 15:56 | Hospitalist Progress Note ---
Date of Service June 06, 2022 Assessment & Plan (1) SOB (shortness of breath): Plan: History of lung cancer and also interstitial lung disease and received chemo on Monday last Presented to ER with increasing shortness of breath and more weakness Has been on 2 L of oxygen at home and now requiring 4 L to maintain saturation Clinically better and will continue current management (2) Hypotension: Plan: Noted to be hypotension with systolic blood pressure running below 90 Will give a small amount of intravenous fluid to maintain pressure and was advised to drink more fluid We will hold any antihypertensive medications for now (3) Leukocytosis: Plan: Leukocytosis Could be secondary to malignancy itself and could be due to UTI and/or pneumonia Has been on intravenous ceftriaxone and doxycycline Blood cultures have been taken (4) Chronic respiratory failure with hypoxia: Plan: History of chronic respiratory failure with hypoxia Has been on 2 L of oxygen at home and requiring up to 4 L to maintain saturation (5) Chronic systolic heart failure: Plan: History of CAD, atrial fibrillation and is status post AICD placed No evidence of any fluid overload Maintain intake output chart and a cautious amount of fluid will be administered follow blood pressure (6) CKD (chronic kidney disease), stage III: Plan: Creatinine remains stable around 1.6 to Monitor PRP (7) Squamous cell carcinoma lung: Plan: 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 Has been on chemo and received chemo on last Monday (8) Paroxysmal atrial fibrillation: Plan: Rate is controlled on the upper side DVT prophylaxis On Xarelto CODE STATUS Full (9) Acute on chronic anemia: Plan: Globin 9.0 on admission Decreased to 7.4 as of 06/06/2022 Will need blood transfusion if it drops below 7 tomorrow and it may well be due to recent chemo Monitor CBC Admission and Anticipated Discharge Date Admission Date: June 05, 2022 Subjective 06/06/2022 The patient was seen and examined in medical telemetry unit He has been feeling much better since admission Denies any more shortness of breath at rest and denies any pain and/or palpitation Review of Systems Review of Systems: All systems reviewed and are unremarkable except as noted below Respiratory: No shortness of breath at rest Neurologic: Remains generally weak and lethargic Physical Exam Physical Exam: Lying in bed comfortably Constitutional: well developed, well nourished, + ill appearing and + obese Eyes: PERRL, conjunctivae normal, anicteric sclerae ENMT: external ear and nose normal, oropharynx normal Neck: trachea midline, no thyromegaly Respiratory: no respiratory distress Auscultation: + diminished lung sounds and + crackles (Bibasilar crackles more on the right than the left); no wheezes Cardiovascular: Rate/Rhythm: regular rate and regular rhythm; not tachycardic Heart Sounds: normal S1 and normal S2; no murmur Extremities: + edema (Trace to 1+ edema bilaterally) Gastrointestinal (Abdomen): Inspection/Auscultation: normal bowel sounds; abdomen not distended Percussion/Palpation: abdomen soft; abdomen nontender Musculoskeletal: No acute arthritis in any joint Neurologic: Alert, awake and oriented x3. Generally very weak but no focal motor deficit appreciated Psychiatric: A+Ox3, euthymic affect Results & Data Results & Data ([facility]) Vital Signs (Past 12 Hours) Vital Signs Temp Pulse Resp BP BP Pulse Ox Pulse Ox 06/06/22 15:00 36.6 C 93 H 20 86/49 L 99 06/06/22 13:10 36.5 C 94 H 16 90/44 L 99 06/06/22 13:11 06/06/22 11:30 103 H 94/52 L 99 06/06/22 07:40 99 H 24 92/65 L 98 06/06/22 07:30 100 H 29 H 80/57 L 99 06/06/22 07:00 99 06/06/22 06:27 108 H 18 110/69 96 06/06/22 05:22 101 H 18 107/48 L 100 O2 Del Method O2 Del Method O2 Flow Rate O2 Flow Rate 06/06/22 15:00 Nasal Cannula 4 06/06/22 13:10 Nasal Cannula 4 06/06/22 13:11 Nasal Cannula 4 06/06/22 11:30 Nasal Cannula 4 06/06/22 07:40 Nasal Cannula 4 06/06/22 07:30 Nasal Cannula 4 06/06/22 07:00 Nasal Cannula 4 06/06/22 06:27 Nasal Cannula 4 06/06/22 05:22 Nasal Cannula 4 Laboratory Results Short CBC 06/05/22 06/06/22 Range/Units 18:09 05:29 WBC 13.54 H 12.87 H (4.8-10.8) K/ul Hgb 9.0 L 7.4 L (14.0-18.0) g/dl Hct 29.7 L 23.9 L (40.1-51.0) % Plt Count 379 313 (130-400) K/uL BMP 06/05/22 06/06/22 18:09 05:29 Sodium 131 L 133 L Potassium 4.6 4.2 Chloride 93 L 95 L Carbon Dioxide 30 30 BUN 28 H 29 H Creatinine 1.57 H 1.62 H Glucose 133 H 110 H Calcium 9.4 8.9 Liver Function 06/05/22 06/06/22 Range/Units 18:09 05:29 Total Bilirubin 1.6 H 1.6 H (0.2-1.0) mg/dl Direct Bilirubin 0.7 H (0-0.2) mg/dl AST 81 H 49 H (13-39) U/L ALT 70 H 49 (7-52) U/L Alkaline Phosphatase 285 H 220 H (34-104) U/L Albumin 3.5 3.1 L (3.4-5.0) gm/dl Urine 06/05/22 Range/Units Unknown Urine Color Dark Yellow Urine Appearance Clear (Clear) Urine pH 5.0 (4.5-7.5) Ur Specific [place] 1.018 (1.000-1.030) Urine Protein 1+ H (Negative) Urine Glucose (UA) Negative (Negative) Medications Administered Current Inpatient Medications Acetaminophen (Acetaminophen 325 Mg Tab) 650 mg PO Q4H PRN PRN Reason: Pain or Fever Stop: 07/06/22 00:32 Albuterol (Albuterol Hfa 8 Gm Inhaler) 2 puffs INH Q4H PRN PRN Reason: shortness of breath or wheezing Stop: 07/06/22 00:32 Allopurinol (Allopurinol 100 Mg Tab) 100 mg PO QAM [facility] Stop: 07/06/22 08:59 Last Admin: 06/06/22 08:10 Dose: 100 mg Atorvastatin Calcium (Atorvastatin 40 Mg Tab) 40 mg PO [facility] Stop: 07/06/22 20:59 Cetirizine HCl (Cetirizine Hcl 10 Mg Tablet) 5 mg PO QAM [facility] Stop: 07/06/22 08:59 Last Admin: 06/06/22 08:10 Dose: 5 mg Cyanocobalamin (Cyanocobalamin (B-12) 100 Mcg Tablet) 100 mcg PO DAILY [facility] Stop: 07/06/22 08:59 Last Admin: 06/06/22 08:11 Dose: 100 mcg Folic Acid (Folic Acid 1 Mg Tab) 1 mg PO QDL [facility] Stop: 07/06/22 11:29 Last Admin: 06/06/22 12:11 Dose: 1 mg Sodium Chloride (Nss 1000ml) 1,000 mls @ 100 mls/hr IV .Q10H [facility] Stop: 06/07/22 00:59 Last Admin: 06/06/22 13:00 Dose: 100 mls/hr Doxycycline Hyclate 100 mg/ (Dextrose) 110 mls @ 50 mls/hr IV Q12H [facility] Stop: 06/13/22 00:59 Last Infusion: 06/06/22 04:36 Dose: Infused Ceftriaxone Sodium 2,000 mg/ (Dextrose) 70 mls @ 100 mls/hr IV Q24H [facility]; Prot ocol Stop: 06/13/22 08:59 Last Infusion: 06/06/22 09:18 Dose: Infused Magnesium Oxide (Magnesium Oxide 400 Mg Tab) 400 mg PO QAM [facility] Stop: 07/06/22 08:59 Last Admin: 06/06/22 08:11 Dose: 400 mg Nitroglycerin (Nitroglycerin Sl 0.4 Mg/Tab Tab) 0.4 mg SL UD PRN PRN Reason: Chest Pain Stop: 07/06/22 00:32 Ondansetron HCl (Ondansetron Inj 2 Mg/Ml 2 Ml Vial) 4 mg IV Q6H PRN PRN Reason: Nausea Stop: 07/06/22 00:32 Ondansetron HCl (Ondansetron 4 Mg Od Tab) 8 mg PO Q8H PRN PRN Reason: Nausea Stop: 07/06/22 00:32 Pantoprazole Sodium (Pantoprazole 40 Mg Tab) 40 mg PO DAILY [facility] Stop: 07/06/22 08:59 Last Admin: 06/06/22 08:11 Dose: 40 mg Prochlorperazine (Prochlorperazine Maleate 10 Mg Tab) 10 mg PO Q6H PRN PRN Reason: Nausea Stop: 07/06/22 00:32 Rivaroxaban (Rivaroxaban 15 Mg Tab) 15 mg PO HS [facility] Stop: 07/06/22 20:59 Vitamin D (Cholecalciferol 1,000 Units 25 Mcg Tab) 2,000 units PO QDL [facility] Stop: 07/06/22 11:29 Last Admin: 06/06/22 12:11 Dose: 2,000 units (1) Hypotension Hypotension type: unspecified hypotension type Qualified Code(s): I95.9 - Hypotension, unspecified (2) Leukocytosis Leukocytosis type: unspecified Qualified Code(s): D72.829 - Elevated white blood cell count, unspecified (3) Squamous cell carcinoma lung Laterality: unspecified laterality Qualified Code(s): C34.90 - Malignant neoplasm of unspecified part of unspecified bronchus or lung
[2022-06-06] MEDS: ATORVASTATIN 40 MG TAB PO SCH (20:03)
[2022-06-06] MEDS: RIVAROXABAN 15 MG TAB PO SCH (20:03)
[2022-06-07] MEDS: DOXYCYCLINE HYCLATE 100 MG in DEXTROSE 5% 100 ML IV SCH ×2 (00:42→13:12)
[2022-06-07 06:58] LABS: Hematocrit (blood only) 22.8 % (40.1-51.0); Mean Corpuscular Hemoglobin 31.1 pg (25.0-34.0); Mean Corpuscular Hgb Conc 30.7 g/dL (32.0-36.0); Mean Corpuscular Volume 101.3 fL (80.0-100.0); Platelet Count 294 K/uL (130-400); RDW Coefficient of Variation 20.9 % (11.5-14.5); Red Blood Count 2.25 M/uL (4.63-6.08); White Blood Count 10.41 K/ul (4.8-10.8)
[2022-06-07 07:19] LABS: BUN Creatinine Ratio 19.6 (10-20); Calcium 8.9 mg/dl (8.5-10.1); Creatinine Clr Calc Pharmacy 57.7 ml/min; Est GFR (African American) 55.9 ml/min; Est GFR (Non-African American) 48.2 ml/min; Magnesium 1.5 mg/dl (1.7-2.4); Phosphorus 3.4 mg/dl (2.5-4.9); Potassium 4.4 mmol/L (3.5-5.1)
[2022-06-07 07:51] LABS: Anisocytosis Present; Basophils # (auto) 0.04 K/uL (0-0.2); Basophils % (auto) 0.4 %; Eosinophils # (auto) 0.06 K/uL (0-0.50); Eosinophils % (auto) 0.6 %; Immature Granulocytes # (auto) 0.16 K/uL (0.00-0.02); Immature Granulocytes % (auto) 1.5 %; Lymphocytes # (auto) 0.26 K/uL (1.2-3.4); Lymphocytes % (auto) 2.5 %; Monocytes % (auto) 2.9 %; Neutrophils # (auto) 9.59 K/uL (1.4-6.5); Neutrophils % (auto) 92.1 %
[2022-06-07] MEDS: PANTOprazole 40 MG TAB PO SCH (07:59)
[2022-06-07] MEDS: CETIRIZINE HCL 10 MG TABLET PO SCH (07:59)
[2022-06-07] MEDS: CYANOCOBALAMIN (B-12) 100 MCG TABLET PO SCH (07:59)
[2022-06-07] MEDS: allopurinoL 100 MG TAB PO SCH (07:59)
[2022-06-07] MEDS ORDERED: SODIUM CHLORIDE 0.9% 250 ML IV PRN (08:00)
[2022-06-07] MEDS: MAGNESIUM OXIDE 400 MG TAB PO SCH ×3 (08:00→19:47)
[2022-06-07] MEDS ORDERED: FUROSEMIDE 40 MG/4 ML VIAL IV ONE ×2 (08:04→14:28)
[2022-06-07] MEDS: cefTRIAXone SODIUM 2,000 MG in DEXTROSE 5% 50 ML IV SCH (08:05)
[2022-06-07] MEDS: CHOLECALCIFEROL 1,000 UNITS 25 MCG TAB PO SCH (13:09)
[2022-06-07] MEDS: FOLIC ACID 1 MG TAB PO SCH (13:09)
--- NOTE | 2022-06-07 16:43 | Hospitalist Progress Note ---
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 Has been on chemo and received chemo on last Monday (3) SOB (shortness of breath): Plan: History of lung cancer and also interstitial lung disease and received chemo on Monday last Presented to ER with increasing shortness of breath and more weakness Has been on 2 L of oxygen at home and now requiring 4 L to maintain saturation Clinically better and will continue current management No more shortness of breath (4) Hypotension: Plan: Noted to be hypotension with systolic blood pressure running below 90 Will give a small amount of intravenous fluid to maintain pressure and was advised to drink more fluid We will hold any antihypertensive medications for now Blood pressure remains on the lower side at 90/67 (5) Leukocytosis: Plan: Leukocytosis Could be secondary to malignancy itself and could be due to UTI and/or pneumonia Has been on intravenous ceftriaxone and doxycycline Blood cultures have been taken-has been negative No signs and or symptoms of infection Sepsis has been ruled out and no UTI and/or pneumonia Will discontinue antibiotic (6) Chronic respiratory failure with hypoxia: Plan: History of chronic respiratory failure with hypoxia Has been on 2 L of oxygen at home and requiring up to 4 L to maintain saturation (7) Chronic systolic heart failure: Plan: History of CAD, atrial fibrillation and is status post AICD placed No evidence of any fluid overload Maintain intake output chart and a cautious amount of fluid will be administered follow blood pressure (8) CKD (chronic kidney disease), stage III: Plan: Creatinine remains stable around 1.6 to Monitor PRP (9) Paroxysmal atrial fibrillation: Plan: Rate is controlled on the upper side DVT prophylaxis On Xarelto CODE STATUS Full Admission and Anticipated Discharge Date Admission Date: June 05, 2022 Subjective 06/06/2022 The patient was seen and examined in medical telemetry unit He has been feeling much better since admission Denies any more shortness of breath at rest and denies any pain and/or palpitation 06/07/2022 The patient was seen and examined in medical telemetry unit He has been feeling much better but the hemoglobin dropped to 7.0 Remains generally weak and still has tachycardia He will be receiving 2 units of blood transfusion Review of Systems Review of Systems: All systems reviewed and are unremarkable except as noted below Respiratory: No shortness of breath at rest Neurologic: Remains generally weak and lethargic Physical Exam Physical Exam: Lying in bed comfortably Constitutional: well developed, well nourished, + ill appearing and + obese Eyes: PERRL, conjunctivae normal, anicteric sclerae ENMT: external ear and nose normal, oropharynx normal Neck: trachea midline, no thyromegaly Respiratory: no respiratory distress Auscultation: + diminished lung sounds and + crackles (Bibasilar crackles more on the right than the left); no wheezes Cardiovascular: Rate/Rhythm: regular rate and regular rhythm; not tachycardic Heart Sounds: normal S1 and normal S2; no murmur Extremities: + edema (Trace to 1+ edema bilaterally) Gastrointestinal (Abdomen): Inspection/Auscultation: normal bowel sounds; abdomen not distended Percussion/Palpation: abdomen soft; abdomen nontender Musculoskeletal: No acute arthritis in any joint Neurologic: Alert awake and oriented x3. no focal sensory or no motor deficit appreciated. Psychiatric: A+Ox3, euthymic affect Lymphatic: no cervical or axillary lymphadenopathy Results & Data Results & Data ([facility]) Vital Signs (Past 12 Hours) Vital Signs Temp Pulse Pulse Resp BP BP Pulse Ox 06/07/22 15:04 104 H 06/07/22 15:05 36.3 C L 102 H 18 98/67 L 98 06/07/22 14:50 36.4 C L 115 H 18 117/66 99 06/07/22 14:06 36.4 C L 106 H 18 102/56 L 96 06/07/22 12:30 36.4 C L 104 H 18 104/73 100 06/07/22 12:00 36.4 C L 110 H 18 109/67 98 06/07/22 11:30 36.4 C L 110 H 18 99/54 L 100 06/07/22 11:15 36.3 C L 101 H 18 96/65 L 100 06/07/22 11:00 36.4 C L 101 H 18 102/58 L 99 06/07/22 11:15 36.3 C L 101 H 18 96/65 L 100 06/07/22 10:56 36.4 C L 18 102/58 L 99 06/07/22 10:40 06/07/22 07:38 37.0 C 110 H 20 109/66 100 06/07/22 07:17 112 H 06/07/22 04:59 37 C 111 H 18 102/63 100 O2 Del Method O2 Flow Rate 06/07/22 15:04 06/07/22 15:05 4 06/07/22 14:50 4 06/07/22 14:06 06/07/22 12:30 4 06/07/22 12:00 4 06/07/22 11:30 4 06/07/22 11:15 4 06/07/22 11:00 4 06/07/22 11:15 2 06/07/22 10:56 06/07/22 10:40 Nasal Cannula 4 06/07/22 07:38 Nasal Cannula 4 06/07/22 07:17 06/07/22 04:59 Nasal Cannula 4 Laboratory Results Short CBC 06/07/22 Range/Units 06:45 WBC 10.41 (4.8-10.8) K/ul Hgb 7.0 L (14.0-18.0) g/dl Hct 22.8 L (40.1-51.0) % Plt Count 294 (130-400) K/uL BMP 06/07/22 06:45 Sodium 132 L Potassium 4.4 Chloride 98 Carbon Dioxide 28 BUN 28 H Creatinine 1.43 H Glucose 118 H Calcium 8.9 Medications Administered Current Inpatient Medications Acetaminophen (Acetaminophen 325 Mg Tab) 650 mg PO Q4H PRN PRN Reason: Pain or Fever Stop: 07/06/22 00:32 Albuterol (Albuterol Hfa 8 Gm Inhaler) 2 puffs INH Q4H PRN PRN Reason: shortness of breath or wheezing Stop: 07/06/22 00:32 Allopurinol ([facility] 100 Mg Tab) [facility] [place]: 07/06/22 08:59 Last Admin: 06/07/22 07:59 Dose: 100 mg Atorvastatin Calcium (Atorvastatin 40 Mg Tab) 40 mg PO [facility] Stop: 07/06/22 20:59 Last Admin: 06/06/22 20:03 Dose: 40 mg Cetirizine HCl (Cetirizine Hcl 10 Mg Tablet) 5 mg PO QAM [facility] Stop: 07/06/22 08:59 Last Admin: 06/07/22 07:59 Dose: 5 mg Cyanocobalamin (Cyanocobalamin (B-12) 100 Mcg Tablet) 100 mcg PO DAILY [facility] Stop: 07/06/22 08:59 Last Admin: 06/07/22 07:59 Dose: 100 mcg Folic Acid (Folic Acid 1 Mg Tab) 1 mg PO QDL [facility] Stop: 07/06/22 11:29 Last Admin: 06/07/22 13:09 Dose: 1 mg Doxycycline Hyclate 100 mg/ (Dextrose) 110 mls @ 50 mls/hr IV Q12H [facility] Stop: 06/13/22 00:59 Last Infusion: 06/07/22 15:44 Dose: Infused Ceftriaxone Sodium 2,000 mg/ (Dextrose) 70 mls @ 100 mls/hr IV Q24H [facility]; Protocol Stop: 06/13/22 08:59 Last Infusion: 06/07/22 09:03 Dose: Infused Sodium Chloride (Nss) 250 mls @ 15 mls/hr IV .[id number] PRN PRN Reason: For Transfusion Stop: 06/07/22 18:00 Magnesium Oxide (Magnesium Oxide 400 Mg Tab) 400 mg PO BID [facility] Stop: 07/07/22 08:59 Last Admin: 06/07/22 09:00 Dose: 400 mg Nitroglycerin (Nitroglycerin Sl 0.4 Mg/Tab Tab) 0.4 mg SL UD PRN PRN Reason: Chest Pain Stop: 07/06/22 00:32 Ondansetron HCl (Ondansetron Inj 2 Mg/Ml 2 Ml Vial) 4 mg IV Q6H PRN PRN Reason: Nausea Stop: 07/06/22 00:32 Ondansetron HCl (Ondansetron 4 Mg Od Tab) 8 mg PO Q8H PRN PRN Reason: Nausea Stop: 07/06/22 00:32 Pantoprazole Sodium (Pantoprazole 40 Mg Tab) 40 mg PO DAILY [facility] Stop: 07/06/22 08:59 Last Admin: 06/07/22 07:59 Dose: 40 mg Prochlorperazine (Prochlorperazine Maleate 10 Mg Tab) 10 mg PO Q6H PRN PRN Reason: Nausea Stop: 07/06/22 00:32 Rivaroxaban (Rivaroxaban 15 Mg Tab) 15 mg PO HS [facility] Stop: 07/06/22 20:59 Last Admin: 06/06/22 20:03 Dose: 15 mg Vitamin D (Cholecalciferol 1,000 Units 25 Mcg Tab) 2,000 units PO QDL [facility] Stop: 07/06/22 11:29 Last Admin: 06/07/22 13:09 Dose: 2,000 units (1) Hypotension Hypotension type: unspecified hypotension type Qualified Code(s): I95.9 - Hypotension, unspecified (2) Leukocytosis Leukocytosis type: unspecified Qualified Code(s): D72.829 - Elevated white blood cell count, unspecified (3) Squamous cell carcinoma lung Laterality: unspecified laterality Qualified Code(s): C34.90 - Malignant neoplasm of unspecified part of unspecified bronchus or lung
[2022-06-07] MEDS: RIVAROXABAN 15 MG TAB PO SCH (19:47)
[2022-06-07] MEDS: ATORVASTATIN 40 MG TAB PO SCH (19:48)
[2022-06-08] MEDS: DOXYCYCLINE HYCLATE 100 MG in DEXTROSE 5% 100 ML IV SCH (01:41)
[2022-06-08 07:24] LABS: Hematocrit (blood only) 28.6 % (40.1-51.0); Mean Corpuscular Hgb Conc 31.5 g/dL (32.0-36.0); Mean Corpuscular Volume 98.6 fL (80.0-100.0); Mean Platelet Volume 10.2 fL (9.4-12.4); Platelet Count 250 K/uL (130-400); RDW Coefficient of Variation 21.7 % (11.5-14.5); White Blood Count 7.36 K/ul (4.8-10.8)
[2022-06-08 07:50] LABS: Anisocytosis Present; Basophils # (auto) 0.03 K/uL (0-0.2); Basophils % (auto) 0.4 %; Eosinophils # (auto) 0.08 K/uL (0-0.50); Eosinophils % (auto) 1.1 %; Immature Granulocytes # (auto) 0.67 K/uL (0.00-0.02); Immature Granulocytes % (auto) 9.1 %; Lymphocytes # (auto) 0.38 K/uL (1.2-3.4); Lymphocytes % (auto) 5.2 %; Monocytes # (auto) 0.47 K/uL (0.24-0.82); Monocytes % (auto) 6.4 %; Neutrophils # (auto) 5.73 K/uL (1.4-6.5); Neutrophils % (auto) 77.8 %; Tear Drop Cells 1+
[2022-06-08 07:55] LABS: BUN Creatinine Ratio 17.8 (10-20); Calcium 9.5 mg/dl (8.5-10.1); Creatinine Clr Calc Pharmacy 51.5 ml/min; Est GFR (African American) 47.7 ml/min; Est GFR (Non-African American) 41.2 ml/min; Magnesium 1.4 mg/dl (1.7-2.4); Potassium 4.4 mmol/L (3.5-5.1)
[2022-06-08] MEDS: PANTOprazole 40 MG TAB PO SCH (08:42)
[2022-06-08] MEDS: MAGNESIUM OXIDE 400 MG TAB PO SCH (08:42)
[2022-06-08] MEDS: CYANOCOBALAMIN (B-12) 100 MCG TABLET PO SCH (08:42)
[2022-06-08] MEDS: CETIRIZINE HCL 10 MG TABLET PO SCH (08:42)
[2022-06-08] MEDS: allopurinoL 100 MG TAB PO SCH (08:42)
[2022-06-08] MEDS: cefTRIAXone SODIUM 2,000 MG in DEXTROSE 5% 50 ML IV SCH (08:44)
[2022-06-08] MEDS: CHOLECALCIFEROL 1,000 UNITS 25 MCG TAB PO SCH (12:08)
[2022-06-08] MEDS: FOLIC ACID 1 MG TAB PO SCH (12:08)
--- NOTE | 2022-06-08 12:35 | Hospitalist Progress Note ---
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 Has been on chemo and received chemo on last Monday Will have oncology outpatient follow-up as usual (3) SOB (shortness of breath): Plan: History of lung cancer and also interstitial lung disease and received chemo on Monday last Presented to ER with increasing shortness of breath and more weakness Has been on 2 L of oxygen at home and now requiring 4 L to maintain saturation Clinically better and will continue current management No more shortness of breath (4) Hypotension: Plan: Noted to be hypotension with systolic blood pressure running below 90 Will give a small amount of intravenous fluid to maintain pressure and was advised to drink more fluid We will hold any antihypertensive medications for now Blood pressure remains on the lower side at 90/67 Blood pressure remains normal at 127/63 (5) Leukocytosis: Plan: Leukocytosis Could be secondary to malignancy itself and could be due to UTI and/or pneumonia Has been on intravenous ceftriaxone and doxycycline Blood cultures have been taken-has been negative No signs and or symptoms of infection Sepsis has been ruled out and no UTI and/or pneumonia Will discontinue antibiotic (6) Chronic respiratory failure with hypoxia: Plan: History of chronic respiratory failure with hypoxia Has been on 2 L of oxygen at home and requiring up to 4 L to maintain saturation (7) Chronic systolic heart failure: Plan: History of CAD, atrial fibrillation and is status post AICD placed No evidence of any fluid overload Maintain intake output chart and a cautious amount of fluid will be administered follow blood pressure (8) CKD (chronic kidney disease), stage III: Plan: Creatinine remains stable around 1.6 to Monitor PRP (9) Paroxysmal atrial fibrillation: Plan: Rate is controlled on the upper side DVT prophylaxis On Xarelto CODE STATUS Full Admission and Anticipated Discharge Date Admission Date: June 05, 2022 Subjective 06/06/2022 The patient was seen and examined in medical telemetry unit He has been feeling much better since admission Denies any more shortness of breath at rest and denies any pain and/or palpitation 06/07/2022 The patient was seen and examined in medical telemetry unit He has been feeling much better but the hemoglobin dropped to 7.0 Remains generally weak and still has tachycardia He will be receiving 2 units of blood transfusion 06/08/2022 The patient was seen and examined in medical telemetry unit He has been feeling much better and his hemoglobin is more than 9 He denies any shortness of breath at rest and he has had physical therapy Will be discharged home this afternoon Review of Systems Review of Systems: All systems reviewed and are unremarkable except as noted below Respiratory: No shortness of breath at rest Neurologic: Remains generally weak and lethargic Physical Exam Physical Exam: Sitting on a chair comfortably Constitutional: well developed, well nourished, + ill appearing and + obese Eyes: PERRL, conjunctivae normal, anicteric sclerae ENMT: external ear and nose normal, oropharynx normal Neck: trachea midline, no thyromegaly Respiratory: no respiratory distress Auscultation: + diminished lung sounds and + crackles (Bibasilar crackles more on the right than the left); no wheezes Cardiovascular: Rate/Rhythm: regular rate and regular rhythm; not tachycardic Heart Sounds: normal S1 and normal S2; no murmur Extremities: + edema (Trace to 1+ edema bilaterally) Gastrointestinal (Abdomen): Inspection/Auscultation: normal bowel sounds; abdomen not distended Percussion/Palpation: abdomen soft; abdomen nontender Musculoskeletal: No acute arthritis in any joint Neurologic: .Alert, awake and oriented x3.generally weak but no focal sensory and/or motor deficit Psychiatric: A+Ox3, euthymic affect Lymphatic: no cervical or axillary lymphadenopathy Results & Data Results & Data ([facility]) Vital Signs (Past 12 Hours) Vital Signs Temp Pulse Pulse Resp BP BP Pulse Ox 06/08/22 12:05 75 16 127/63 98 06/08/22 07:50 36.6 C 111 H 20 102/63 97 06/08/22 07:45 116 H 06/08/22 03:32 36.8 C 118 H 18 101/63 96 O2 Del Method O2 Flow Rate 06/08/22 12:05 Nasal Cannula 06/08/22 07:50 Nasal Cannula 4 06/08/22 07:45 06/08/22 03:32 Nasal Cannula 4 Laboratory Results Short CBC 06/08/22 Range/Units 06:54 WBC 7.36 (4.8-10.8) K/ul Hgb 9.0 L (14.0-18.0) g/dl Hct 28.6 L (40.1-51.0) % Plt Count 250 (130-400) K/uL BMP 06/08/22 06:54 Sodium 134 L Potassium 4.4 Chloride 96 L Carbon Dioxide 31 BUN 29 H Creatinine 1.63 H Glucose 108 H Calcium 9.5 Medications Administered Current Inpatient Medications Acetaminophen (Acetaminophen 325 Mg Tab) 650 mg PO Q4H PRN PRN Reason: Pain or Fever Stop: 07/06/22 00:32 Albuterol (Albuterol Hfa 8 Gm Inhaler) 2 puffs INH Q4H PRN PRN Reason: shortness of breath or wheezing Stop: 07/06/22 00:32 Allopurinol (Allopurinol 100 Mg Tab) 100 mg PO QAM [facility] Stop: 07/06/22 08:59 Last Admin: 06/08/22 08:42 Dose: 100 mg Atorvastatin Calcium (Atorvastatin 40 Mg Tab) 40 mg PO HS [facility] Stop: 07/06/22 20:59 Last Admin: 06/07/22 19:48 Dose: 40 mg Cetirizine HCl (Cetirizine Hcl 10 Mg Tablet) 5 mg PO QAM [facility] Stop: 07/06/22 08:59 Last Admin: 06/08/22 08:42 Dose: 5 mg Cyanocobalamin (Cyanocobalamin (B-12) 100 Mcg Tablet) 100 mcg PO DAILY [facility] Stop: 07/06/22 08:59 Last Admin: 06/08/22 08:42 Dose: 100 mcg Folic Acid (Folic Acid 1 Mg Tab) 1 mg PO QDL [facility] Stop: 07/06/22 11:29 Last Admin: 06/08/22 12:08 Dose: 1 mg Doxycycline Hyclate 100 mg/ (Dextrose) 110 mls @ 50 mls/hr IV Q12H [facility] Stop: 06/13/22 00:59 Last Infusion: 06/08/22 03:29 Dose: Infused Ceftriaxone Sodium 2,000 mg/ (Dextrose) 70 mls @ 100 mls/hr IV Q24H [facility]; Protocol Stop: 06/13/22 08:59 Last Infusion: 06/08/22 09:30 Dose: Infused Magnesium Oxide (Magnesium Oxide 400 Mg Tab) 400 mg PO BID [facility] Stop: 07/07/22 08:59 Last Admin: 06/08/22 08:42 Dose: 400 mg Nitroglycerin (Nitroglycerin Sl 0.4 Mg/Tab Tab) 0.4 mg SL UD PRN PRN Reason: Chest Pain Stop: 07/06/22 00:32 Ondansetron HCl (Ondansetron Inj 2 Mg/Ml 2 Ml Vial) 4 mg IV Q6H PRN PRN Reason: Nausea Stop: 07/06/22 00:32 Ondansetron HCl (Ondansetron 4 Mg Od Tab) 8 mg PO Q8H PRN PRN Reason: Nausea Stop: 07/06/22 00:32 Pantoprazole Sodium (Pantoprazole 40 Mg Tab) 40 mg PO DAILY [facility] Stop: 07/06/22 08:59 Last Admin: 06/08/22 08:42 Dose: 40 mg Prochlorperazine (Prochlorperazine Maleate 10 Mg Tab) 10 mg PO Q6H PRN PRN Reason: Nausea Stop: 07/06/22 00:32 Rivaroxaban (Rivaroxaban 15 Mg Tab) 15 mg PO HS [facility] Stop: 07/06/22 20:59 Last Admin: 06/07/22 19:47 Dose: 15 mg Vitamin D (Cholecalciferol 1,000 Units 25 Mcg Tab) 2,000 units PO QDL [facility] Stop: 07/06/22 11:29 Last Admin: 06/08/22 12:08 Dose: 2,000 units (1) Squamous cell carcinoma lung Laterality: unspecified laterality Qualified Code(s): C34.90 - Malignant neoplasm of unspecified part of unspecified bronchus or lung (2) Hypotension Hypotension type: unspecified hypotension type Qualified Code(s): I95.9 - Hypotension, unspecified (3) Leukocytosis Leukocytosis type: unspecified Qualified Code(s): D72.829 - Elevated white blood cell count, unspecified
--- NOTE | 2022-06-08 19:29 | Discharge Summary ---
Date of Service June 08, 2022 Admission HPI Per Admitting Provider DICTATED BY:Shon Bean MD DATE OF ADMISSION: 06/05/2022. CHIEF COMPLAINT: Shortness of breath, weakness. HISTORY OF PRESENT ILLNESS: A 71-year-old male with past medical history s ignificant for lung cancer with mets to liver, chronic respiratory failure on 2 L of home oxygen, currently receiving chemo, history of interstitial lung disease, chronic kidney disease stage III, iron deficiency anemia, chronic systolic heart failure, paroxysmal atrial fibrillation, history of DVT, PE, on Xarelto, history of CAD, status post AICD, presents with shortness of breath and weakness. The patient had chemo last Monday. There is some redness on the posterior aspect below the left wrist from where chemo was given.. Denies any fever or chills, feeling tired, fatigued and short of breath. Last admission, he was having anemia and required blood transfusion, 3 units of PRBCs were given. EGD was done, which was unremarkable. Anemia was attributed to chronic illness. The patient's was worried that he may having anemia, so brought him into the hospital. Currently, saturating okay on 4 L, blood pressure is soft with systolic blood pressure 90s. White count is 13. Chest x-ray, no obvious findings. Urinalysis is possible UTI. Lower extremity Doppler was negative for DVT and he is already on Xarelto. The patient has mild headache. No neck pain, no back pain, no abdominal pain, no chest pain, no leg pains. No rash seen anywhere. Has some mild runny nose. No blurred visions, no sore throat, mild cough bringing whitish phlegm. Appetite is down, but no difficulty swallowing. As per the , he is not ambulating since January when he developed severe gout from his chemo Admission Exam Per Admitting Provider GENERAL: The patient is of moderate build, not in acute distress. VITAL SIGNS: Temperature 36.9, pulse 106, respiratory rate 20, blood pressure 97/63, oxygen 97% on 4 L. HEENT: Pupils equal, round and reactive to light. Oral mucosa moist. NECK: No JVD, no neck masses. CARDIOVASCULAR: S1 and S2 heard. Regular rate and rhythm. No murmur, no gallop. RESPIRATORY SYSTEM: Normal AP diameter. No accessory muscle use. Mild bibasilar crackles. No wheezing. ABDOMEN: Soft, bowel sounds present, nontender, no distention. CENTRAL NERVOUS SYSTEM: Alert and oriented. No facial droop. Speech is clear. Obeys simple commands. EXTREMITIES: No edema, no erythema. Principal Diagnosis Acute on Chronic Anemia,Squamous cell Carcinoma of the lung Discharge Exam Sitting on a chair comfortably Constitutional well developed, well nourished, + ill appearing and + obese Eyes PERRL, conjunctivae normal, anicteric sclerae ENMT external ear and nose normal, oropharynx normal Neck trachea midline, no thyromegaly Respiratory no respiratory distress Auscultation: + diminished lung sounds and + crackles (Bibasilar crackles more on the right than the left); no wheezes Cardiovascular Rate/Rhythm: regular rate and regular rhythm; not tachycardic Heart Sounds: normal S1 and normal S2; no murmur Extremities: + edema (Trace to 1+ edema bilaterally) Gastrointestinal (Abdomen) Inspection/Auscultation: normal bowel sounds; abdomen not distended Percussion/Palpation: abdomen soft; abdomen nontender Psychiatric A+Ox3, euthymic affect Lymphatic no cervical or axillary lymphadenopathy Discharge Data Allergies Allergy/AdvReac Type Severity Reaction Status Date / Time diphtheria toxoid,fluid Allergy Severe CONVULSIONS--HORSE Verified 06/05/22 18:48 SERUM BASE tetanus toxoid, adsorbed Allergy Severe CONVULSIONS--HORSE Verified 06/05/22 18:48 SERUM BASE Consultations 06/05/22 20:45 ED Decision to Admit Stat Ordered Studies 06/05/22 18:17 US venous doppler UE LT Stat Hospital Course (1) Acute on chronic anemia: Globin 9.0 on admission Decreased to 7.4 as of 06/06/2022 Will need blood transfusion if it drops below 7 tomorrow and it may well be due to recent chemo Received chemotherapy for squamous cell carcinoma of the lung Low hemoglobin is due to side effect of chemotherapy-no source of bleeding Hemoglobin dropped to 7.0 Will give 2 units of blood transfusion Likely discharge tomorrow Hemoglobin is 9.0 as of 06/08/2022 PT and OT evaluation-recommended home (2) Squamous cell carcinoma lung: 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 Has been on chemo and received chemo on last Monday Will have oncology outpatient follow-up as usual (3) SOB (shortness of breath): History of lung cancer and also interstitial lung disease and received chemo on Monday last Presented to ER with increasing shortness of breath and more weakness Has been on 2 L of oxygen at home and now requiring 4 L to maintain saturation Clinically better and will continue current management No more shortness of breath (4) Hypotension: Noted to be hypotension with systolic blood pressure running below 90 Will give a small amount of intravenous fluid to maintain pressure and was advised to drink more fluid We will hold any antihypertensive medications for now Blood pressure remains on the lower side at 90/67 Blood pressure remains normal at 127/63 (5) Leukocytosis: Leukocytosis Could be secondary to malignancy itself and could be due to UTI and/or pneumonia Has been on intravenous ceftriaxone and doxycycline Blood cultures have been taken-has been negative No signs and or symptoms of infection Sepsis has been ruled out and no UTI and/or pneumonia Will discontinue antibiotic (6) Chronic respiratory failure with hypoxia: History of chronic respiratory failure with hypoxia Has been on 2 L of oxygen at home and requiring up to 4 L to maintain saturation (7) Chronic systolic heart failure: History of CAD, atrial fibrillation and is status post AICD placed No evidence of any fluid overload Maintain intake output chart and a cautious amount of fluid will be administered follow blood pressure (8) CKD (chronic kidney disease), stage III: Creatinine remains stable around 1.6 to Monitor PRP (9) Paroxysmal atrial fibrillation: Rate is controlled on the upper side DVT prophylaxis On Xarelto CODE STATUS Full Total Time Total Time Spent Total Time Spent (In Minutes): 35 minutes Discharge Plan Discharge Items Patient Disposition: Home - Home Health Services Reason For Visit: SOB Discharge Diagnosis: Acute on Chronic Anemia,Squamous cell Carcinoma of the lung Condition on Discharge: Fair Activity: Resume your previous activity Non-emergency contact: Primary Care Provider Call non-emergency contact if: you have any medication questions and your symptoms worsen Follow-up/Referrals: Chandrakant Herron MD [Primary Care Provider] - (Date & Time 06/14/2022 3:20 PM Provider Chandrakant Herron MD [facility] ) Diet: Heart Healthy Diet Texture: Easy to Chew Addtl Attending Provider Instructions: Please take precautions to avoid fall No change in new medications Please give appointment with your healthcare providers Pending Studies at Discharge: No Stand-Alone Forms: My [employer], Smoking Cessation Medications and DC Order Prescriptions: Continued pantoprazole 20 mg tablet,delayed release (DR/EC) 20 mg PO DAILY Qty: 90 3RF folic acid 1 mg tablet 1 mg PO QDL metoprolol succinate 50 mg tablet extended release 24 hr 50 mg PO BID cetirizine [Zyrtec] 10 mg tablet 5 mg PO QAM atorvastatin 40 mg Tablet 40 mg PO HS cholecalciferol (vitamin D3) [Vitamin D3] 25 mcg (1,000 unit) Capsule 2,000 unit PO QDL albuterol sulfate 90 mcg/actuation HFA aerosol inhaler 2 inh inhalation Q4H PRN (Reason: shortness of breath or wheezing) Qty: 8.5 0RF Xarelto 15 mg Tablet 15 mg PO HS Qty: 30 0RF furosemide 40 mg tablet 40 mg PO QAM Qty: 0 0RF ondansetron HCl 8 mg tablet 8 mg PO Q8H PRN (Reason: Nausea) prochlorperazine maleate 10 mg tablet 10 mg PO Q6H PRN (Reason: Nausea) cyanocobalamin (vitamin B-12) [Vitamin B-12] 100 mcg Tablet 100 mcg PO DAILY allopurinol 100 mg tablet 100 mg PO QAM magnesium oxide 400 mg (241.3 mg magnesium) Tablet 400 mg PO QAM Qty: 30 0RF Discharge Orders: Discharge Order (Routine); Ordered 06/08/22 Ordered By: Felicia Tang Admission Data Admit Date/Time: 06/05/22 21:34 Attending Provider: Felicia Tang Admit Provider: Shon Bean Primary Care Provider: Chandrakant Herron Other Providers: Shon Bean Other Interventions: Discharge Summary Assessment (RN) Last Done: 06/08/22 14:29
== END 2022-06-08 14:59 | disposition home health service (06) | DRG 812 ==
LOC: ED 17:38 → EDINP 21:34 → 2N 06-06 12:52
DX: N18.30 Chronic kidney disease, stage 3 unspecified; E83.42 Hypomagnesemia; J84.9 Interstitial pulmonary disease, unspecified; J96.11 Chronic respiratory failure with hypoxia; Z87.891 Personal history of nicotine dependence; Z86.718 Personal history of other venous thrombosis and embolism; I50.22 Chronic systolic (congestive) heart failure; Z95.810 Presence of automatic (implantable) cardiac defibrillator; I48.0 Paroxysmal atrial fibrillation; Z99.81 Dependence on supplemental oxygen; M10.9 Gout, unspecified; Z86.711 Personal history of pulmonary embolism; D64.81 Anemia due to antineoplastic chemotherapy; C78.7 Secondary malignant neoplasm of liver and intrahepatic bile duct; Z88.7 Allergy status to serum and vaccine; Z79.01 Long term (current) use of anticoagulants

== ENCOUNTER 2022-06-21 15:19 | Inpatient (IN) ==
--- NOTE | 2022-06-21 15:51 | XRay Report ---
SINGLE VIEW CHEST CLINICAL HISTORY: Dyspnea. FINDINGS: An AP, portable, upright chest radiograph is compared to study dated 06/05/2022. A 2-lead car diac AICD is unchanged in position. The heart is enlarged. There is pulmonary vascular congestion and interstitial edema. There are small pleural effusions with dependent consolidation. No pneumothorax is seen. The skeletal structures are osteopenic. The bony thorax is grossly intact. IMPRESSION: 1. Cardiomegaly and AICD with evidence of congestive failure and pulmonary edema. 2. Small pleural effusions with dependent consolidation ACT 112: Negative or not required by law. Electronically signed by: Be Domínguez M.D. 06/21/2022 3:49 PM
[2022-06-21 15:57] LABS: Hematocrit (blood only) 28.6 % (40.1-51.0); Mean Corpuscular Hemoglobin 31.1 pg (25.0-34.0); Mean Corpuscular Hgb Conc 31.5 g/dL (32.0-36.0); Mean Platelet Volume 10.4 fL (9.4-12.4); Platelet Count 457 K/uL (130-400); RDW Coefficient of Variation 21.6 % (11.5-14.5); RDW Standard Deviation 76.7 fL (36.4-46.3); Red Blood Count 2.89 M/uL (4.63-6.08); White Blood Count 13.27 K/ul (4.8-10.8)
[2022-06-21 15:57] LABS: Base Excess VBG 8.9 mEq/L; HCO3 VBG 36 mmol/L; Oxygen Saturation VBG < 60.0 %; PCO2 VBG 56 mmHg (38-50); PO2 VBG 25 mmHg; pH VBG 7.41 (7.36-7.41)
--- NOTE | 2022-06-21 16:08 | Emergency Department Note ---
Impression & Plan Pulmonary edema, Hypoxia Admit to the [facility] ED Provider Note NAME: CRISTOBAL OVIEDO JR AGE: 71 SEX: M ARRIVES VIA: Ambulance INFORMANT: Patient ED PROVIDER(S): Maria Luisa Martin DO CHIEF COMPLAINT: Shortness of breath PLAN: Disposition: Admit to the [facility] Condition: Guarded MEDICAL DECISION MAKING: This is a 71-year-old male patient with a history of lung cancer who presents to the emergency department for worsening shortness of breath. The patient romain lly wears 2 L of O2 but had to increase the supplemental oxygen at home but had worsening shortness of breath. EMS found the patient with O2 saturations in the 70s. Patient also has noticed increasing leg swelling over the past 3 days. Chest x-ray confirms significant pulmonary edema. Patient's O2 requirement had significantly increased over the past couple of days. COVID testing was negative. Triage Nursing notes reviewed and agree with them. Additional history obtained from EMS Prior medical records reviewed Vital Signs: reviewed and remarkable for tachypnea and hypoxia Differential diagnosis: Pneumothorax, CHF, COVID-19, pneumonia ER treatment provided: IV Lasix Diagnostics interpreted by me: ECG: A. fib at a rate of 98 with PVCs Cardiac Monitoring: A. fib at a rate of 99 Laboratory studies: See below Imaging studies: As per my interpretation Portable chest x-ray: Worsening pulmonary edema HPI: 71/M arrives for evaluation of shortness of breath. The patient has a history of lung cancer and has become increasingly short of breath over the past 3 days. He has noticed increased swelling in both lower legs. He normally wears 2 L of O2 by nasal cannula at home but has had increasing supplemental oxygen at home. Today, the shortness of breath has dramatically worsened. ROS: See above HPI for pertinent positives & negatives. A total of 10 systems reviewed and were otherwise negative. PAST MEDICAL HISTORY:See Below PAST SURGICAL HISTORY:See Below FAMILY HISTORY:See Below SOCIAL HISTORY:See Below HOME MEDICATIONS:See list ALLERGIES:See list VITALS:See Below PHYSICAL EXAMINATION: HEENT: Head - normocephalic and atraumatic. Pupils are equal, round, and reactive to light. Extraocular eye muscles are intact, and sclera are anicteric. Nose - moist nasal mucosa without discharge. Mouth - moist buccal mucosa. Oropharynx is nonerythematous and there is no tonsillar exudate or edema noted. Neck: Supple; no JVD or cervical lymphadenopathy. Heart: Irregularly irregular rhythm with a controlled rate. There is a normal S1 and S2 with no murmurs, clicks, or gallops appreciated. Lungs: Diminished breath sounds in all lung prater Abdomen: Soft, completely nontender, nondistended, with good bowel sounds. There are no palpable pulsatile masses or hepatosplenomegaly. There is no guarding, rigidity, or rebound noted. Extremities: No evidence of cyanosis, clubbing, or edema. There are easily palpable peripheral pulses. Skin: Pale, warm and dry with good turgor and no rashes. ED COURSE: Times/Reassessments: 0325 the patient was evaluated in room C5. The patient had been hypoxic for EMS and was placed on a nonrebreather mask which brought his O2 saturations up to 100%. An order was placed for continuous cardiac monitoring. Patient was in A. fib at a rate of 99. IV lock was initiated. Laboratory studies were drawn as above. A portable chest x-ray was performed. Eventually the patient was weaned from a nonrebreather back to a nasal cannula at 6 L. He was given 20 mg of IV Lasix. I discussed the case with the [facility] Hospitalist and they will evaluate for f urther management. Maria Luisa Martin DO Past Med/Surg History Medical History (Updated 06/21/22 @ 23:22 by Maria Luisa Martin DO) Acute GI bleeding Atrial fibrillation dx 2016 - follows w/ Dr. Trejo Chronic systolic heart failure CKD (chronic kidney disease), stage III Congestive heart failure Deep vein thrombosis RLE - 2016 dx while hospitalized w/ pneumonia Duodenal ulcer Hearing deficit [facility] Hematoma of left lower extremity Osteoarthritis Pneumonia Pulmonary embolism 2016 - dx while hospitalized w/ pneumonia - on xarelto Surgical History History of appendectomy History of cardiac catheterization 2016 - [place] - no stents History of cardioversion 11/08/2016 History of carpal tunnel release of both wrists History of cataract surgery History of colonoscopy History of esophagogastroduodenoscopy (EGD) History of evacuation of hematoma LLE History of shoulder surgery Left 2004 History of tonsillectomy Presence of combination internal cardiac defibrillator (ICD) and pacemaker placed 2017 - medtronic - last checked 1 year ago - follows w/ dr. yeh Family History Mother Diabetes Grandfather (Paternal) No problems noted. Father Lymphoma Grandfather (Maternal) Myocardial infarction Other No family history of adverse response to anesthesia Denies family history of Ovarian cancer Prostate cancer Heart disease Breast cancer Colorectal cancer Social History Smoking Status: Former smoker Tobacco Type: Cigarettes Age Quit Using Tobacco: 53; Cigarettes Per Day: 1 pack a day; Second Hand Exposure: No; Do You Dip or Chew Tobacco: No; Tobacco Cessation Education Requested by Patient: No Hx Alcohol Use: No Hx Substance Use: No Preferred Language: Ukrainian Communication Ability: Effective Visual Impairment: Limited Hearing Ability: Use of Hearing Aid Mortising Machine Operator Required: No Beliefs That Will Affect Care: None marital status: Current Living Situation: Spouse current occupational status: retired 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 How many Children do You have: 0 Other Information That Helps Us Care for You: No Feels Safe at Home: Yes Safety Concerns: Feels Safe At This Time Childhood Exposure to Second-Hand Smoke: Yes (dad did ) caffeine: Yes (cup of coffee in morning ) Dental Care, Regularly: No Physical Activity Frequency: Does not Exercise Seatbelt Use: always Sunscreen Use: No (doesn't go out in sun ) Assistive Devices: Cane, Glasses and Oxygen - Continuous Assistive Devices Comment: Hearing aides at home Allergies Allergies Allergy/AdvReac Type Severity Reaction Status Date / Time diphtheria toxoid,fluid Allergy Severe CONVULSIONS--HORSE Verified 06/21/22 19:29 SERUM BASE tetanus toxoid, adsorbed Allergy Severe CONVULSIONS--HORSE Verified 06/21/22 19:29 SERUM BASE Home Meds Home Medications Medication Instructions Recorded Confirmed atorvastatin 40 mg tablet 40 mg PO HS 10/29/19 06/21/22 cholecalciferol (vitamin D3) 25 2,000 unit PO QDL 11/20/19 06/21/22 mcg (1,000 unit) capsule (Vitamin D3) folic acid 1 mg tablet 1 mg PO QDL 06/08/20 06/21/22 metoprolol succinate 50 mg 50 mg PO BID 01/04/21 06/21/22 tablet,extended release 24 hr cetirizine 10 mg tablet (Zyrtec) 5 mg PO QAM 08/16/21 06/21/22 ondansetron HCl 8 mg tablet 8 mg PO Q8H PRN Nausea 02/21/22 06/21/22 prochlorperazine maleate 10 mg 10 mg PO Q6H PRN Nausea 02/21/22 06/21/22 tablet allopurinol 100 mg tablet 100 mg PO QAM 05/26/22 06/21/22 cyanocobalamin (vitamin B-12) 100 100 mcg PO DAILY 05/26/22 06/21/22 mcg tablet (Vitamin B-12) albuterol sulfate 90 mcg/actuation 2 puff inhalation Q4 PRN Wheezing 06/21/22 06/21/22 aerosol inhaler benzonatate 200 mg capsule 200 mg PO UD PRN Cough 06/21/22 06/21/22 Previous Rx's Medication Instructions Recorded furosemide 40 mg tablet 40 mg PO QAM #0 tabs 12/31/21 rivaroxaban 15 mg tablet (Xarelto) 15 mg PO HS #30 tabs 12/31/21 pantoprazole 20 mg tablet,delayed 20 mg PO DAILY #90 tabs 03/18/22 release magnesium oxide 400 mg (241.3 mg 400 mg PO QAM #30 tabs 05/29/22 magnesium) tablet Results & Data (ED) Vital Signs Vital Signs - 24 hr 06/21/22 15:31 06/21/22 15:46 06/21/22 15:48 Temperature 36.7 C Temperature Source Oral Pulse Rate 99 H 99 H Pulse Rate from SpO2 Sensor Pulse Rhythm Regular Pulse Strength Normal Respiratory Rate 26 H 26 H Respiratory Effort / Characteristics Accessory Muscle Use Labored Respiratory Pattern Regular Regular Tachypnea Blood Pressure 118/79 Blood Pressure Mean 92 Blood Pressure Position Semi-fowlers Pulse Oximetry 99 100 Oxygen Delivery Method Non-rebreather Non-rebreather Oxygen Flow Rate 15 15 Sepsis Recent Fever Within 48 Hours No Sepsis New/Unexplained Change in Mental Status No Sepsis Action Taken by Nursing No Action Required Oxygen Flow Rate - Titration 06/21/22 15:48 06/21/22 15:30 06/21/22 17:00 Temperature Temperature Source Pulse Rate 92 H 100 H Pulse Rate from SpO2 Sensor 86 94 H Pulse Rhythm Pulse Strength Respiratory Rate 39 H 36 H Respiratory Effort / Characteristics Respiratory Pattern Blood Pressure 118/79 93/59 L Blood Pressure Mean 92 70 Blood Pressure Position Pulse Oximetry 100 96 Oxygen Delivery Method Oxygen Flow Rate 15 Sepsis Recent Fever Within 48 Hours Sepsis New/Unexplained Change in Mental Status Sepsis Action Taken by Nursing Oxygen Flow Rate - Titration 100 Laboratory Data Result diagrams: 06/21/22 15:42 06/21/22 15:42 Lab Results 06/21/22 06/21/22 06/21/22 Range/Units 15:42 15:42 15:44 WBC 13.27 H (4.8-10.8) K/ul RBC 2.89 L (4.63-6.08) M/uL Hgb 9.0 L (14.0-18.0) g/dl Hct 28.6 L (40.1-51.0) % MCV 99.0 (80.0-100.0) fL MCH 31.1 (25.0-34.0) pg MCHC 31.5 L (32.0-36.0) g/dL RDW Std Deviation 76.7 H (36.4-46.3) fL RDW Coeff of Yogi 21.6 H (11.5-14.5) % Plt Count 457 H (130-400) K/uL MPV 10.4 (9.4-12.4) fL Immature Gran % (Auto) 0.6 % Neut % (Auto) 93.9 % Lymph % (Auto) 3.1 % Pratt % (Auto) 1.1 % Eos % (Auto) 1.1 % Baso % (Auto) 0.2 % Neut # (Auto) 12.45 H (1.4-6.5) K/uL Lymph # (Auto) 0.41 L (1.2-3.4) K/uL Pratt # (Auto) 0.15 L (0.24-0.82) K/uL Eos # (Auto) 0.15 (0-0.50) K/uL Baso # (Auto) 0.03 (0-0.2) K/uL Immature Gran # (Auto) 0.08 H (0.00-0.02) K/uL Anisocytosis Present VBG pH 7.41 (7.36-7.41) VBG pCO2 56 H (38-50) mmHg VBG pO2 25 mmHg VBG HCO3 36 mmol/L VBG O2 Saturation < 60.0 % VBG Base Excess 8.9 mEq/L Sodium 132 L (136-145) mmol/L Potassium 4.5 (3.5-5.1) mmol/L Chloride 92 L (98-107) mmol/L Carbon Dioxide 33 H (21-32) mmol/L Anion Gap 7 (3-11) BUN 35 H (6-23) mg/dl Creatinine 1.51 H (0.6-1.4) mg/dl Est Cr Clr Drug Dosing 54.2 ml/min Est GFR ( Amer) 52.4 ml/min Est GFR (Non-Af Amer) 45.2 ml/min BUN/Creatinine Ratio 23.2 H (10-20) Glucose 130 H (70-99(Fasting)) mg/dl Calcium 9.3 (8.5-10.1) mg/dl Total Bilirubin 1.8 H (0.2-1.0) mg/dl AST 45 H (13-39) U/L ALT 32 (7-52) U/L Alkaline Phosphatase 233 H (34-104) U/L Troponin I High Sens 22.5 H (0-20) pg/ml Total Protein 7.5 (6.0-8.3) gm/dl Albumin 3.2 L (3.4-5.0) gm/dl Globulin 4.3 H (2.5-4.0) gm/dl Albumin/Globulin Ratio 0.7 L (0.9-2) Urine Color Urine Appearance (Clear) Urine pH (4.5-7.5) Ur Specific [place] (1.000-1.030) Urine Protein (Negative) Urine Glucose (UA) (Negative) Urine Ketones (Negative) Urine Blood (Negative) Urine Nitrite (Negative) Urine Bilirubin (Negative) Urine Urobilinogen (Negative) Ur Leukocyte Esterase (Negative) Urine WBC (Auto) (0-5) /hpf Urine RBC (Auto) (0-4) /hpf U Hyaline Cast (Auto) (0-5) /lpf U Epithel Cells (Auto) (0-5) /lpf Urine Bacteria (Auto) (Negative) SARS-CoV-2 (PCR) (Negative) 06/21/22 06/21/22 Range/Units 15:55 18:05 WBC (4.8-10.8) K/ul RBC (4.63-6.08) M/uL Hgb (14.0-18.0) g/dl Hct (40.1-51.0) % MCV (80.0-100.0) fL MCH (25.0-34.0) pg MCHC (32.0-36.0) g/dL RDW Std Deviation (36.4-46.3) fL RDW Coeff of Yogi (11.5-14.5) % Plt Count (130-400) K/uL MPV (9.4-12.4) fL Immature Gran % (Auto) % Neut % (Auto) % Lymph % (Auto) % Pratt % (Auto) % Eos % (Auto) % Baso % (Auto) % Neut # (Auto) (1.4-6.5) K/uL Lymph # (Auto) (1.2-3.4) K/uL Pratt # (Auto) (0.24-0.82) K/uL Eos # (Auto) (0-0.50) K/uL Baso # (Auto) (0-0.2) K/uL Immature Gran # (Auto) (0.00-0.02) K/uL Anisocytosis VBG pH (7.36-7.41) VBG pCO2 (38-50) mmHg VBG pO2 mmHg VBG HCO3 mmol/L VBG O2 Saturation % VBG Base Excess mEq/L Sodium (136-145) mmol/L Potassium (3.5-5.1) mmol/L Chloride (98-107) mmol/L Carbon Dioxide (21-32) mmol/L Anion Gap (3-11) BUN (6-23) mg/dl Creatinine (0.6-1.4) mg/dl Est Cr Clr Drug Dosing ml/min Est GFR ( Amer) ml/min Est GFR (Non-Af Amer) ml/min BUN/Creatinine Ratio (10-20) Glucose (70-99(Fasting)) mg/dl Calcium (8.5-10.1) mg/dl Total Bilirubin (0.2-1.0) mg/dl AST (13-39) U/L ALT (7-52) U/L Alkaline Phosphatase (34-104) U/L Troponin I High Sens (0-20) pg/ml Total Protein (6.0-8.3) gm/dl Albumin (3.4-5.0) gm/dl Globulin (2.5-4.0) gm/dl Albumin/Globulin Ratio (0.9-2) Urine Color Dark Yellow Urine Appearance Clear (Clear) Urine pH 5.0 (4.5-7.5) Ur Specific [place] 1.015 (1.000-1.030) Urine Protein Trace H (Negative) Urine Glucose (UA) Negative (Negative) Urine Ketones Negative (Negative) Urine Blood Negative (Negative) Urine Nitrite Negative (Negative) Urine Bilirubin 1+ H (Negative) Urine Urobilinogen Negative (Negative) Ur Leukocyte Esterase Trace H (Negative) Urine WBC (Auto) 5-10 H (0-5) /hpf Urine RBC (Auto) 0-4 (0-4) /hpf U Hyaline Cast (Auto) 1-5 (0-5) /lpf U Epithel Cells (Auto) >30 H (0-5) /lpf Urine Bacteria (Auto) Negative (Negative) SARS-CoV-2 (PCR) NEGATIVE (Negative) Administered Medications Atorvastatin Calcium (Atorvastatin 40 Mg Tab) 40 mg PO HS AMBER Stop: 07/21/22 20:59 Last Admin: 06/21/22 21:48 Dose: 40 mg Documented By: FABIAN Metoprolol Succinate (Metoprolol Succ 50mg Ext Rel Tab) 50 mg PO BID AMBER Stop: 07/21/22 20:59 Last Admin: 06/21/22 21:41 Dose: Not Given Documented By: FABIAN Rivaroxaban (Rivaroxaban 15 Mg Tab) 15 mg PO HS AMBER Stop: 07/21/22 20:59 Last Admin: 06/21/22 21:48 Dose: 15 mg Documented By: FABIAN Discontinued Medications Furosemide (Furosemide Inj 20 Mg/2 Ml Vial) 20 mg IV ONE ONE Stop: 06/21/22 18:32 Last Admin: 06/21/22 18:41 Dose: 20 mg Documented By: DEVIN Furosemide (Furosemide Inj 20 Mg/2 Ml Vial) 20 mg IV ONE ONE Stop: 06/21/22 20:24 Last Admin: 06/21/22 21:49 Dose: 20 mg Documented By: FABIAN Imaging Data Radiologist's Impression: Chest X-Ray 06/21/22 15:33 SINGLE VIEW CHEST CLINICAL HISTORY: Dyspnea. FINDINGS: An AP, portable, upright chest radiograph is compared to study dated 06/05/2022. A 2-lead cardiac AICD is unchanged in position. The heart is enlarged. There is pulmonary vascular congestion and interstitial edema. There are small pleural effusions with dependent consolidation. No pneumothorax is seen. The skeletal structures are osteopenic. The bony thorax is grossly intact. IMPRESSION: 1. Cardiomegaly and AICD with evidence of congestive failure and pulmonary edema. 2. Small pleural effusions with dependent consolidation ACT 112: Negative or not required by law. Electronically signed by: Be Domínguez M.D. 06/21/2022 3:49 PM Discharge Plan Visit Data Chief Complaint: Shortness of Breath/Dyspnea Stated Complaint: SOB ED Provider: Maria Luisa Martin Discharge Problem: Pulmonary edema, Hypoxia Patient Disposition: Admitted As Inpatient Discharge Instructions Interventions: ED Discharge Assessment Last Done: 06/21/22 21:09 : Pulmonary edema Qualifiers: Chronicity: acute Qualified Code(s): J81.0 - Acute pulmonary edema
[2022-06-21 16:23] LABS: Anisocytosis Present; Basophils # (auto) 0.03 K/uL (0-0.2); Basophils % (auto) 0.2 %; Eosinophils # (auto) 0.15 K/uL (0-0.50); Eosinophils % (auto) 1.1 %; Immature Granulocytes # (auto) 0.08 K/uL (0.00-0.02); Immature Granulocytes % (auto) 0.6 %; Lymphocytes # (auto) 0.41 K/uL (1.2-3.4); Lymphocytes % (auto) 3.1 %; Monocytes # (auto) 0.15 K/uL (0.24-0.82); Monocytes % (auto) 1.1 %; Neutrophils # (auto) 12.45 K/uL (1.4-6.5); Neutrophils % (auto) 93.9 %
[2022-06-21 16:29] LABS: Troponin I High Sensitivity 22.5 pg/ml (0-20)
[2022-06-21 16:37] LABS: Albumin Globulin Ratio 0.7 (0.9-2); Albumin Level 3.2 gm/dl (3.4-5.0); BUN Creatinine Ratio 23.2 (10-20); Bilirubin,Total 1.8 mg/dl (0.2-1.0); Calcium 9.3 mg/dl (8.5-10.1); Creatinine Clr Calc Pharmacy 54.2 ml/min; Est GFR (African American) 52.4 ml/min; Est GFR (Non-African American) 45.2 ml/min; Globulin 4.3 gm/dl (2.5-4.0); Potassium 4.5 mmol/L (3.5-5.1); Total Protein 7.5 gm/dl (6.0-8.3)
[2022-06-21] MEDS ORDERED: FUROSEMIDE INJ 20 MG/2 ML VIAL IV ONE ×2 (18:31→20:23)
[2022-06-21 18:40] LABS: Appearance Urine Clear (Clear); Bacteria Urine Automated Negative (Negative); Blood Urine Negative (Negative); Color Urine Dark Yellow; Epithelial Cell Urine Auto >30 /lpf (0-5); Glucose Urine UA Negative (Negative); Ketones Urine Negative (Negative); Leukocyte Esterase Urine Trace (Negative); Nitrite Urine Negative (Negative); Protein Urine Trace (Negative); RBC Urine Automated 0-4 /hpf (0-4); Specific Gravity Urine 1.015 (1.000-1.030); Urobilinogen Urine Negative (Negative)
[2022-06-21 18:41] LABS: Bilirubin Urine 1+ (Negative)
--- NOTE | 2022-06-21 19:01 | History & Physical Report ---
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 Acute on chronic respiratory failure with hypoxia Acute decompensated heart failure Progressive shortness of breath, despite increased home 2 L nasal cannula prior to arrival Found to be saturating in 70s initially, improved to 90% on 6L oxymask VBG pH WNL, WBC 13k, BNP, procal and blood cultures pending Given 20mg IV Lasix in ED, baseline BP soft at 96/66 Repeat EKG since initial EKG not uploaded - a fib at 105 bpm on tele monitor Initial HS troponin 22.5, which is similar to previous Discussed with Dr. Parekh. Will give additional 20mg IV lasix now Monitor volume status closely. Strict I&Os, daily weights, low sodium diet Squamous cell carcinoma lung Follows with Dr. Petersen of [facility] onc and was seen in follow up earlier today. Chemo regimen includes gemcitabine and the carboplatin chemotherapy which was started in December 2021 Last received chemo 06/17/22 Anemia Recent admissions with severe anemia requiring prbc transfusions Receiving Aranesp for chronic anemia every 3 weeks Hgb stable at 9. 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 Continue to monitor with daily BMP CAD (coronary artery disease) Stable. 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 Continue Xarelto Paroxysmal atrial fibrillation Continue Toprol DVT Ppx: Xarelto Code status: FULL PCP: Germaine Dispo: Admitting to PCU Patient seen in collaboration with Dr. Johnson. Please see addendum. History of Present Illness Chief Complaint: SOB Primary Care Provider: Chandrakant Herron MD This is a 71yo M with a PMH of lung cancer with mets to liver on home O2 receiving chemo, ILD, CKD III, iron deficiency anemia, chronic systolic heart failure, paroxysmal atrial fibrillation, history of DVT/PE on anticoagulation and other medical problems listed below who presents progressive shortness of breath over the past few days. Patient has been admitted twice since April for symptomatic anemia with hypotension requiring blood transfusion. Continues to receive chemotherapy treatment for lung cancer, most recently on 06/17/2022. Patient has felt progressively more short of breath over the past few days at home with difficulty catching his breath even at rest. Has increased swelling in lower extremity. Also endorses a dry cough and difficulty breathing when lying flat. Normally wears 2 L nasal cannula oxygen but had to increase it at home. When he presented to ED, was found to be hypoxic in the 70s. Improved on 6 L oxygen mask. Still feels worn out. Denies any fever, chills, congestion, chest pain, palpitations, wheezing, nausea, vomiting, abdominal pain, dysuria, diarrhea or constipation. Denies any medication changes since previous admission. On 40 mg p.o. Lasix. Allergies Allergy/AdvReac Type Severity Reaction Status Date / Time diphtheria toxoid,fluid Allergy Severe CONVULSIONS--HORSE Verified 06/21/22 19:29 SERUM BASE tetanus toxoid, adsorbed Allergy Severe CONVULSIONS--HORSE Verified 06/21/22 19:29 SERUM BASE Home Medications Medication Instructions Recorded Confirmed Type atorvastatin 40 mg tablet 40 mg PO HS 10/29/19 06/21/22 History cholecalciferol (vitamin D3) 25 2,000 unit PO QDL 11/20/19 06/21/22 History mcg (1,000 unit) capsule (Vitamin D3) folic acid 1 mg tablet 1 mg PO QDL 06/08/20 06/21/22 History metoprolol succinate 50 mg 50 mg PO BID 01/04/21 06/21/22 History tablet,extended release 24 hr cetirizine 10 mg tablet (Zyrtec) 5 mg PO QAM 08/16/21 06/21/22 History furosemide 40 mg tablet 40 mg PO QAM #0 tabs 12/31/21 06/21/22 Rx rivaroxaban 15 mg tablet (Xarelto) 15 mg PO HS #30 tabs 12/31/21 06/21/22 Rx ondansetron HCl 8 mg tablet 8 mg PO Q8H PRN Nausea 02/21/22 06/21/22 History prochlorperazine maleate 10 mg 10 mg PO Q6H PRN Nausea 02/21/22 06/21/22 History tablet pantoprazole 20 mg tablet,delayed 20 mg PO DAILY #90 tabs 03/18/22 06/21/22 Rx release allopurinol 100 mg tablet 100 mg PO QAM 05/26/22 06/21/22 History cyanocobalamin (vitamin B-12) 100 100 mcg PO DAILY 05/26/22 06/21/22 History mcg tablet (Vitamin B-12) magnesium oxide 400 mg (241.3 mg 400 mg PO QAM #30 tabs 05/29/22 06/21/22 Rx magnesium) tablet albuterol sulfate 90 mcg/actuation 2 puff inhalation Q4 PRN Wheezing 06/21/22 06/21/22 History aerosol inhaler benzonatate 200 mg capsule 200 mg PO UD PRN Cough 06/21/22 06/21/22 History Past Med/Surg History Medical History (Updated 06/21/22 @ 21:35 by Anna Hudson PA-C) Acute GI bleeding Atrial fibrillation dx 2016 - follows w/ Dr. Trejo Chronic systolic heart failure CKD (chronic kidney disease), stage III Congestive heart failure Deep vein thrombosis RLE - 2016 dx while hospitalized w/ pneumonia Duodenal ulcer Hearing deficit [facility] Hematoma of left lower extremity Osteoarthritis Pneumonia Pulmonary embolism 2016 - dx while hospitalized w/ pneumonia - on xarelto Surgical History History of appendectomy History of cardiac catheterization 2016 - [place] - no stents History of cardioversion 11/08/2016 History of carpal tunnel release of both wrists History of cataract surgery History of colonoscopy History of esophagogastroduodenoscopy (EGD) History of evacuation of hematoma LLE History of shoulder surgery Left 2004 History of tonsillectomy Presence of combination internal cardiac defibrillator (ICD) and pacemaker placed 2016 - [employer] - last checked 1 year ago - follows w/ dr. yeh Family History Mother Diabetes Grandfather (Paternal) No problems noted. Father Lymphoma Grandfather (Maternal) Myocardial infarction Other No family history of adverse response to anesthesia Denies family history of Ovarian cancer Prostate cancer Heart disease Breast cancer Colorectal cancer Social History Smoking Status: Former smoker Tobacco Type: Cigarettes Age Quit Using Tobacco: 53; Cigarettes Per Day: 1 pack a day; Second Hand Exposure: No; Hx Alcohol Use: No Hx Substance Use: No Preferred Language: Greek Communication Ability: Effective Visual Impairment: Limited Hearing Ability: Use of Hearing Aid Heating Unit Installer Required: No Beliefs That Will Affect Care: None marital status: Current Living Situation: Spouse current occupational status: retired 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 Physical Exam Physical Exam: General Appearance: WD/WN, vitals as above, ill appearing, pale, conversational dyspnea Head: normocephalic, atraumatic Eyes: normal inspection, PERRL, conjunctivae normal, anicteric sclerae ENT: external ear and nose normal, oropharynx normal Neck: normal visual inspection, trachea midline, no thyromegaly Respiratory: increased respiratory effort, bibasilar rales, no wheeze, rales or rhonchi. + accessory muscle use Cardiovascular: tachycardic rate, regular rhythm, no murmur, normal peripheral pulses, 2+ BLE edema. Vessels: + JVD Chest: normal inspection of chest Abdomen/GI: normal bowel sounds, soft, nontender, no hepatosplenomegaly Extremities/Musculoskeletal: no cyanosis or clubbing, extremities motor strength 5/5 Neurologic: PERRL, EOMI, accommodation nl, no face palsy, no dysarthria, CN's II-XI intact bilaterally and moves all extremities Psychiatric: A+Ox3, euthymic affect Skin: no rashes, normal color, warm/dry Results & Data Results & Data ([facility]) Vital Signs (Past 12 Hours) Vital Signs Temp Pulse Resp BP Pulse Ox O2 Del Method O2 Flow Rate 06/21/22 17:00 100 H 36 H 93/59 L 96 06/21/22 15:30 92 H 39 H 118/79 100 06/21/22 15:48 15 06/21/22 15:46 99 H 26 H 100 Non-rebreather 15 06/21/22 15:31 36.7 C 99 H 26 H 118/79 99 Non-rebreather 15 Laboratory Results Short CBC 06/21/22 Range/Units 15:42 WBC 13.27 H (4.8-10.8) K/ul Hgb 9.0 L (14.0-18.0) g/dl Hct 28.6 L (40.1-51.0) % Plt Count 457 H (130-400) K/uL BMP 06/21/22 15:42 Sodium 132 L Potassium 4.5 Chloride 92 L Carbon Dioxide 33 H BUN 35 H Creatinine 1.51 H Glucose 130 H Calcium 9.3 Liver Function 06/21/22 Range/Units 15:42 Total Bilirubin 1.8 H (0.2-1.0) mg/dl AST 45 H (13-39) U/L ALT 32 (7-52) U/L Alkaline Phosphatase 233 H (34-104) U/L Albumin 3.2 L (3.4-5.0) gm/dl Urine 06/21/22 Range/Units 18:05 Urine Color Dark Yellow Urine Appearance Clear (Clear) Urine pH 5.0 (4.5-7.5) Ur Specific [place] 1.015 (1.000-1.030) Urine Protein Trace H (Negative) Urine Glucose (UA) Negative (Negative) Diagnostic Findings Chest X-Ray 06/21/22 15:33 SINGLE VIEW CHEST CLINICAL HISTORY: Dyspnea. FINDINGS: An AP, portable, upright chest radiograph is compared to study dated 06/05/2022. A 2-lead cardiac AICD is unchanged in position. The heart is enlarged. There is pulmonary vascular congestion and interstitial edema. There are small pleural effusions with dependent consolidation. No pneumothorax is seen. The skeletal structures are osteopenic. The bony thorax is grossly intact. IMPRESSION: 1. Cardiomegaly and AICD with evidence of congestive failure and pulmonary edema. 2. Small pleural effusions with dependent consolidation ACT 112: Negative or not required by law. Electronically signed by: Be Domínguez M.D. 06/21/2022 3:49 PM Supervising Physician Co-Signing Physician Notes 71-year-old male with PMH of lung cancer with mets to liver on the chemo, chronic respiratory failure on 2 L of home oxygen, interstitial lung disease, CKD stage III, iron deficiency anemia, chronic systolic heart failure, paroxysmal A. fib, DVT/PE on Xarelto presented to our ED 06/20 with complaint of worsening shortness of breath since last 3 to 4 days. Patient was needing 15 L oxygen via nonrebreather, after IV 20 Mg Lasix went down to 7 L oxygen. Patient still with labored breathing and dyspnea with conversation. We will add another 20 mg IV Lasix. Patient denies fever/chest pain/sore throat/increased cough [cough at baseline]/belly pain/acute changes in bowel bladder habits/new skin lesions. WBC elevated, will get Pro-Andrea. Get BNP. Troponin mildly elevated, seems like this chronic, patient without chest pain. Cardiology consult for likely acute on chronic heart failure with reduced ejection fraction. Monitor and replete electrolytes. PT/OT consult. Upon examination: GENERAL: Alert and oriented x3. NAD, on 7L O2 via NC. Overweight. HEENT: No pallor, no icterus. Pupils equal, round and reactive to light. Oral mucosa moist. NECK: No JVD, no neck masses. HEART: S1 and S2 heard. Regular rate and rhythm. No murmur, no gallop. RESPIRATORY SYSTEM: Normal AP diameter. No accessory muscle use. No wheezing, mid and basal crackles bilaterally ABDOMEN: Soft, bowel sounds present, nontender, no distention. CENTRAL NERVOUS SYSTEM: No facial droop. Speech is clear. Obeys simple commands. Moves extremities. EXTREMITIES: 2+ BLE edema, no erythema seen. I have seen and examined the patient and have discussed the case with the provider above. I agree with the assessment and plan as stated. (1) Anemia Anemia type: unspecified type Qualified Code(s): D64.9 - Anemia, unspecified
[2022-06-21] MEDS ORDERED: ALBUTEROL HFA 8 GM INHALER INH PRN (20:26)
[2022-06-21] MEDS ORDERED: BENZONATATE 100 MG CAPSULE PO PRN (20:26)
[2022-06-21] MEDS ORDERED: ACETAMINOPHEN 325 MG TAB PO PRN (21:35)
[2022-06-21] MEDS ORDERED: ONDANSETRON INJ 2 MG/ML 2 ML VIAL IV PRN (21:35)
[2022-06-21] MEDS: METOPROLOL SUCC 50MG EXT REL TAB PO SCH ×2 (21:41→22:00)
[2022-06-21] MEDS: ATORVASTATIN 40 MG TAB PO SCH (21:48)
[2022-06-21] MEDS: RIVAROXABAN 15 MG TAB PO SCH (21:48)
[2022-06-22 06:09] LABS: Hematocrit (blood only) 26.2 % (40.1-51.0); Hemoglobin 8.2 g/dl (14.0-18.0); Mean Corpuscular Hemoglobin 32.2 pg (25.0-34.0); Mean Corpuscular Hgb Conc 31.3 g/dL (32.0-36.0); Mean Corpuscular Volume 102.7 fL (80.0-100.0); Mean Platelet Volume 10.9 fL (9.4-12.4); Platelet Count 357 K/uL (130-400); RDW Coefficient of Variation 21.4 % (11.5-14.5); RDW Standard Deviation 77.8 fL (36.4-46.3); Red Blood Count 2.55 M/uL (4.63-6.08); White Blood Count 14.87 K/ul (4.8-10.8)
[2022-06-22 06:40] LABS: BUN Creatinine Ratio 22.7 (10-20); Calcium 8.9 mg/dl (8.5-10.1); Creatinine Clr Calc Pharmacy 50.2 ml/min; Est GFR (African American) 47.7 ml/min; Est GFR (Non-African American) 41.2 ml/min; Potassium 5.1 mmol/L (3.5-5.1)
[2022-06-22] MEDS: CETIRIZINE HCL 10 MG TABLET PO SCH (08:28)
[2022-06-22] MEDS: allopurinoL 100 MG TAB PO SCH (08:29)
[2022-06-22] MEDS: CYANOCOBALAMIN (B-12) 100 MCG TABLET PO SCH (08:29)
[2022-06-22] MEDS: PANTOprazole 40 MG TAB PO SCH (08:29)
[2022-06-22] MEDS: MAGNESIUM OXIDE 400 MG TAB PO SCH (08:35)
[2022-06-22] MEDS: METOPROLOL SUCC 50MG EXT REL TAB PO SCH ×2 (08:39→21:09)
--- NOTE | 2022-06-22 08:53 | Electrocardiogram Report ---
Test Reason : Blood Pressure : / mmHG Vent. Rate : 098 BPM Atrial Rate : 096 BPM P-R Int : 000 ms QRS Dur : 088 ms QT Int : 338 ms P-R-T Axes : 000 -31 093 degrees QTc Int : 431 ms Probable Atrial fibrillation with premature ventricular or aberrantly conducted complexes Left axis deviation Low voltage QRS Cannot rule out Old Anterior infarct (cited on or before 05-JUN-2022) Abnormal ECG When compared with ECG of 05-JUN-2022 18:01, Sinus tachycardia no longer present Confirmed by Amos Gillis ([id number]) on 06/22/2022 8:53:08 AM Referred By: Chandrakant Herron Confirmed By:Amos Gillis
--- NOTE | 2022-06-22 08:54 | Electrocardiogram Report ---
Test Reason : Blood Pressure : / mmHG Vent. Rate : 087 BPM Atrial Rate : 375 BPM P-R Int : 000 ms QRS Dur : 096 ms QT Int : 346 ms P-R-T Axes : 000 -16 070 degrees QTc Int : 416 ms Poor data quality, interpretation may be adversely affected Atrial fibrillation with premature ventricular or aberrantly conducted complexes Low voltage QRS Possible Old Inferior infarct Abnormal ECG When compared with ECG of 21-JUN-2022 15:26, (unconfirmed) Minimal criteria for Anterior infarct are no longer Present Borderline Criteria for Inferior infarct now present Confirmed by Amos Gillis ([id number]) on 06/22/2022 8:53:52 AM Referred By: Chandrakant Herron Confirmed By:Amos Gillis
[2022-06-22] MEDS: FOLIC ACID 1 MG TAB PO SCH (11:43)
[2022-06-22] MEDS: CHOLECALCIFEROL 1,000 UNITS 25 MCG TAB PO SCH (11:43)
--- NOTE | 2022-06-22 12:16 | Cardiology Consultation ---
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 Issues addressed are as follows 1. Acute on chronic systolic heart failure. Chest x-ray does reflect mild increase in edema. This is superimposed on chronic possibly worsening interstitial lung disease. Blood pressures are marginal we will continue IV furosemide at 20 mg twice per day, oxygen supplementation. Suspect part of patient's hypoxia reflects underlying lung disease 2. Paroxysmal atrial fibrillation with new onset recent. Rates are controlled and patient anticoagulated chronically. Would continue metoprolol. Will check echo to assess feasibility of return to sinus rhythm 3. Chronic interstitial lung disease/squamous cell carcinoma of the lung contributing to hypoxia. Patient on chemotherapy and should be followed closely for worsening process, superimposed infection 4. CKD stage III we will continue to follow renal function while on IV diuretics History of Present Illness Reason for Consultation: Dyspnea, congestive heart failure, worsening respiratory failure proximal Requesting Physician: Dr Berrios Attending Physician: Jones Berrios MD History of Present Illness Patient is a 71-year-old male with complex underlying medical issues which include 1. Nonischemic cardiomyopathy with moderate left ventricular dysfunction 2. Prophylactic pacer defibrillator insertion 11/08/2016, [employer] Evera MRI XT DCR 3. Cardiac catheterization 08/05/2016, moderate nonobstructive coronary atherosclerosis 4. Progressive interstitial lung disease 5. Prior extensive bilateral pulmonary emboli August 2016 on chronic anticoagulation with Xarelto 6. CKD stage III 7. Cardiac arrhythmias with paroxysmal atrial fibrillation flutter status post synchronized cardioversion 03/23/2017 , nonsustained ventricular tachycardia on pacer interrogation 8. Squamous cell lung carcinoma on chemotherapy last dose 06/17/2022([facility]) Patient is referred now with symptoms of worsening dyspnea and hypoxia. He notes worsening dyspnea of at least 3 days duration. Aware of some orthopnea mild increase in lower extremity edema. Noted no chest pains, tachypalpitations, irregular heart rhythm. Noted no fevers or chills does have a chronic cough with moderate [place] sputum production. No bleeding Patient notably hypoxic on ER presentation has responded to increased supplemental oxygenation. Chest x-ray diffuse patchy edema/infiltrate suggestive of edema superimposed on chronic underlying interstitial lung disease EKG notable for atrial fibrillation new recent onset Allergies Allergy/AdvReac Type Severity Reaction Status Date / Time diphtheria toxoid,fluid Allergy Severe CONVULSIONS--HORSE Verified 06/21/22 19:29 SERUM BASE tetanus toxoid, adsorbed Allergy Severe CONVULSIONS--HORSE Verified 06/21/22 19:29 SERUM BASE Home Medications Medication Instructions Recorded Confirmed Type atorvastatin 40 mg tablet 40 mg PO HS 10/29/19 06/21/22 History cholecalciferol (vitamin D3) 25 2,000 unit PO QDL 11/20/19 06/21/22 History mcg (1,000 unit) capsule (Vitamin D3) folic acid 1 mg tablet 1 mg PO QDL 06/08/20 06/21/22 History metoprolol succinate 50 mg 50 mg PO BID 01/04/21 06/21/22 History tablet,extended release 24 hr cetirizine 10 mg tablet (Zyrtec) 5 mg PO QAM 08/16/21 06/21/22 History furosemide 40 mg tablet 40 mg PO QAM #0 tabs 12/31/21 06/21/22 Rx rivaroxaban 15 mg tablet (Xarelto) 15 mg PO HS #30 tabs 12/31/21 06/21/22 Rx ondansetron HCl 8 mg tablet 8 mg PO Q8H PRN Nausea 02/21/22 06/21/22 History prochlorperazine maleate 10 mg 10 mg PO Q6H PRN Nausea 02/21/22 06/21/22 History tablet pantoprazole 20 mg tablet,delayed 20 mg PO DAILY #90 tabs 03/18/22 06/21/22 Rx release allopurinol 100 mg tablet 100 mg PO QAM 05/26/22 06/21/22 History cyanocobalamin (vitamin B-12) 100 100 mcg PO DAILY 05/26/22 06/21/22 History mcg tablet (Vitamin B-12) magnesium oxide 400 mg (241.3 mg 400 mg PO QAM #30 tabs 05/29/22 06/21/22 Rx magnesium) tablet albuterol sulfate 90 mcg/actuation 2 puff inhalation Q4 PRN Wheezing 06/21/22 06/21/22 History aerosol inhaler benzonatate 200 mg capsule 200 mg PO UD PRN Cough 06/21/22 06/21/22 History Patient History Medical History Acute GI bleeding Atrial fibrillation dx 2016 - follows w/ Dr. Trejo Chronic systolic heart failure CKD (chronic kidney disease), stage III Congestive heart failure Deep vein thrombosis RLE - 2016 dx while hospitalized w/ pneumonia Duodenal ulcer Hearing deficit [facility] Hematoma of left lower extremity Osteoarthritis Pneumonia Pulmonary embolism 2016 - dx while hospitalized w/ pneumonia - on xarelto Surgical History History of appendectomy History of cardiac catheterization 2016 - [place] - no stents History of cardioversion 11/08/2016 History of carpal tunnel release of both wrists History of cataract surgery History of colonoscopy History of esophagogastroduodenoscopy (EGD) History of evacuation of hematoma LLE History of shoulder surgery Left 2004 History of tonsillectomy Presence of combination internal cardiac defibrillator (ICD) and pacemaker placed 2016 - [employer] - last checked 1 year ago - follows w/ dr. yeh Family History Mother Diabetes Grandfather (Paternal) No problems noted. Father Lymphoma Grandfather (Maternal) Myocardial infarction Other No family history of adverse response to anesthesia Denies family history of Ovarian cancer Prostate cancer Heart disease Breast cancer Colorectal cancer Social History Smoking Status: Former smoker Tobacco Type: Cigarettes Age Quit Using Tobacco: 53; Cigarettes Per Day: 1 pack a day; Second Hand Exposure: No; Do You Dip or Chew Tobacco: No; Tobacco Cessation Education Requested by Patient: No Hx Alcohol Use: No Hx Substance Use: No Preferred Language: Indian Communication Ability: Effective Visual Impairment: Limited Hearing Ability: Use of Hearing Aid Tubular Riveter Required: No Beliefs That Will Affect Care: None marital status: Current Living Situation: Spouse current occupational status: retired 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 [employer] How many Children do You have: 0 Other Information That Helps Us Care for You: No Feels Safe at Home: Yes Safety Concerns: Feels Safe At This Time Childhood Exposure to Second-Hand Smoke: Yes (dad did ) caffeine: Yes (cup of coffee in morning ) Dental Care, Regularly: No Physical Activity Frequency: Does not Exercise Seatbelt Use: always Sunscreen Use: No (doesn't go out in sun ) Assistive Devices: Cane, Glasses and Oxygen - Continuous Assistive Devices Comment: Hearing aides at home Review of Systems Review of Systems: All systems reviewed & are unremarkable except as noted in HPI & below Physical Exam Constitutional: + obese; no acute distress Eyes: PERRL, conjunctivae normal, anicteric sclerae ENMT: external ear and nose normal, oropharynx normal Neck: trachea midline, no thyromegaly Respiratory: Auscultation: + crackles (Lower one half lung field) Cardiovascular: Rate/Rhythm: + irregularly irregular Heart Sounds: normal S1 and normal S2; no gallop and no murmur Palpation: normal PMI Vessels: normal carotid upstroke and radial pulses present; no JVD and no carotid bruit Extremities: + edema (Trace to 1+ lower extremity) Gastrointestinal (Abdomen): normal bowel sounds, soft, nontender, no hepatosplenomegaly Musculoskeletal: no cyanosis or clubbing, extremities motor strength 5/5 Skin: no rashes, warm and dry Neurologic: PERRL, EOMI, accommodation nl, no face palsy, no dysarthria Psychiatric: A+Ox3, euthymic affect Results & Data ([facility]) Vital Signs (Past 12 Hours) Vital Signs Temp Pulse Pulse Resp BP BP Pulse Ox 06/22/22 11:21 36.9 C 83 19 98/70 L 100 06/22/22 11:00 06/22/22 08:04 84 06/22/22 07:59 36.6 C 82 20 95/64 L 97 06/22/22 04:04 36.5 C 84 18 94/66 L 99 06/22/22 03:49 99 H 24 100 O2 Del Method O2 Flow Rate FiO2 06/22/22 11:21 Nasal Cannula 4 06/22/22 11:00 High Flow Nasal Cannula 4 06/22/22 08:04 06/22/22 07:59 High Flow Nasal Cannula 6 06/22/22 04:04 BiPAP 06/22/22 03:49 40 Laboratory Results Laboratory Results - last 24 hr 06/21/22 06/21/22 06/21/22 15:42 15:42 15:44 WBC 13.27 H RBC 2.89 L Hgb 9.0 L Hct 28.6 L MCV 99.0 MCH 31.1 MCHC 31.5 L RDW Std Deviation 76.7 H RDW Coeff of Yogi 21.6 H Plt Count 457 H MPV 10.4 Immature Gran % (Auto) 0.6 Neut % (Auto) 93.9 Lymph % (Auto) 3.1 [place] % (Auto) 1.1 Eos % (Auto) 1.1 Baso % (Auto) 0.2 Neut # (Auto) 12.45 H Lymph # (Auto) 0.41 L [place] # (Auto) 0.15 L Eos # (Auto) 0.15 Baso # (Auto) 0.03 Immature Gran # (Auto) 0.08 H Anisocytosis Present VBG pH 7.41 VBG pCO2 56 H VBG pO2 25 VBG HCO3 36 VBG O2 Saturation < 60.0 VBG Base Excess 8.9 Sodium 132 L Potassium 4.5 Chloride 92 L Carbon Dioxide 33 H Anion Gap 7 BUN 35 H Creatinine 1.51 H Est Cr Clr Drug Dosing 54.2 Est GFR ( Amer) 52.4 Est GFR (Non-Af Amer) 45.2 BUN/Creatinine Ratio 23.2 H Glucose 130 H Calcium 9.3 Total Bilirubin 1.8 H AST 45 H ALT 32 Alkaline Phosphatase 233 H Troponin I High Sens 22.5 H B-Natriuretic Peptide Total Protein 7.5 Albumin 3.2 L Globulin 4.3 H Albumin/Globulin Ratio 0.7 L Procalcitonin Urine Color Urine Appearance Urine pH Ur Specific [place] Urine Protein Urine Glucose (UA) Urine Ketones Urine Blood Urine Nitrite Urine Bilirubin Urine Urobilinogen Ur Leukocyte Esterase Urine WBC (Auto) Urine RBC (Auto) U Hyaline Cast (Auto) U Epithel Cells (Auto) Urine Bacteria (Auto) SARS-CoV-2 (PCR) 06/21/22 06/21/22 06/21/22 15:55 18:05 21:02 WBC RBC Hgb Hct MCV MCH MCHC RDW Std Deviation RDW Coeff of Yogi Plt Count MPV Immature Gran % (Auto) Neut % (Auto) Lymph % (Auto) [place] % (Auto) Eos % (Auto) Baso % (Auto) Neut # (Auto) Lymph # (Auto) [place] # (Auto) Eos # (Auto) Baso # (Auto) Immature Gran # (Auto) Anisocytosis VBG pH VBG pCO2 VBG pO2 VBG HCO3 VBG O2 Saturation VBG Base Excess Sodium Potassium Chloride Carbon Dioxide Anion Gap BUN Creatinine Est Cr Clr Drug Dosing Est GFR ( Amer) Est GFR (Non-Af Amer) BUN/Creatinine Ratio Glucose Calcium Total Bilirubin AST ALT Alkaline Phosphatase Troponin I High Sens B-Natriuretic Peptide 275 H Total Protein Albumin Globulin Albumin/Globulin Ratio Procalcitonin Urine Color Dark Yellow Urine Appearance Clear Urine pH 5.0 Ur Specific [place] 1.015 Urine Protein Trace H Urine Glucose (UA) Negative Urine Ketones Negative Urine Blood Negative Urine Nitrite Negative Urine Bilirubin 1+ H Urine Urobilinogen Negative Ur Leukocyte Esterase Trace H Urine WBC (Auto) 5-10 H Urine RBC (Auto) 0-4 U Hyaline Cast (Auto) 1-5 U Epithel Cells (Auto) >30 H Urine Bacteria (Auto) Negative SARS-CoV-2 (PCR) NEGATIVE 06/21/22 06/22/22 06/22/22 21:03 05:26 05:26 WBC 14.87 H RBC 2.55 L Hgb 8.2 L Hct 26.2 L MCV 102.7 H MCH 32.2 MCHC 31.3 L RDW Std Deviation 77.8 H RDW Coeff of Yogi 21.4 H Plt Count 357 MPV 10.9 Immature Gran % (Auto) Neut % (Auto) Lymph % (Auto) [place] % (Auto) Eos % (Auto) Baso % (Auto) Neut # (Auto) Lymph # (Auto) [place] # (Auto) Eos # (Auto) Baso # (Auto) Immature Gran # (Auto) Anisocytosis VBG pH VBG pCO2 VBG pO2 VBG HCO3 VBG O2 Saturation VBG Base Excess Sodium 133 L Potassium 5.1 Chloride 93 L Carbon Dioxide 35 H Anion Gap 5 BUN 37 H Creatinine 1.63 H Est Cr Clr Drug Dosing 50.2 Est GFR ( Amer) 47.7 Est GFR (Non-Af Amer) 41.2 BUN/Creatinine Ratio 22.7 H Glucose 123 H Calcium 8.9 Total Bilirubin AST ALT Alkaline Phosphatase Troponin I High Sens B-Natriuretic Peptide Total Protein Albumin Globulin Albumin/Globulin Ratio Procalcitonin 0.45 Urine Color Urine Appearance Urine pH Ur Specific [place] Urine Protein Urine Glucose (UA) Urine Ketones Urine Blood Urine Nitrite Urine Bilirubin Urine Urobilinogen Ur Leukocyte Esterase Urine WBC (Auto) Urine RBC (Auto) U Hyaline Cast (Auto) U Epithel Cells (Auto) Urine Bacteria (Auto) SARS-CoV-2 (PCR) (1) Squamous cell carcinoma lung Laterality: unspecified laterality Qualified Code(s): C34.90 - Malignant neoplasm of unspecified part of unspecified bronchus or lung
[2022-06-22] MEDS ORDERED: FUROSEMIDE INJ 20 MG/2 ML VIAL IV ONE (12:23)
--- NOTE | 2022-06-22 16:17 | Hospitalist Progress Note ---
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 Acute on chronic respiratory failure with hypoxia Acute on chronic systolic heart failure Progressive shortness of breath, despite increased home 2 L nasal cannula prior to arrival Found to be saturating in 70s initially, improved to 90% on 6L oxymask, now on 5 L NC s/p iv lasix- clinically improving and feeling better- cardiology managing diuresis echo with EF 35-40% will start on empiric antibiotics given his immunosuppression with persistent leucocytosis and elevated procal, CXR reviewed, has SOB with cough. check sputum clx. will consider CT chest and pulm evaluation if no improvement. follow clx results. Squamous cell carcinoma lung Follows with Dr. Petersen of [facility] and was seen in follow up earlier today. Chemo regimen includes gemcitabine and the carboplatin chemotherapy which was started in December 2021 Last received chemo 06/17/22 Anemia Recent admissions with severe anemia requiring prbc transfusions Receiving Aranesp for chronic anemia every 3 weeks Hgb stable at 9. 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 Continue to monitor with daily BMP CAD (coronary artery disease) Stable. Continue statin, Toprol Deep vein thrombosis FDC (current) use of anticoagulants H/o DVT/PE in 2016. Continue Xarelto Paroxysmal atrial fibrillation Continue Toprol, xarelto DVT Ppx: Xarelto Dispo: PCU on tele. continue iv diuresis, continue to wean down oxygen as tolerated. will need 2 step O2 eval at discharge. Admission and Anticipated Discharge Date Admission Date: June 21, 2022 Subjective States his breathing is improved. No fever, chills, N/V/ abd pain. Has some chronic cough. Physical Exam Physical Exam: General: Lying comfortably in bed, not in distress, on NC Chest: Fair breath sounds bilaterally with basilar rales CVS: Regular rate and rhythm, normal heart sounds, no murmur Abdomen: Soft, non tender, not distended, normal bowel sounds Neuro: Awake, alert, oriented, conversing well, non focal Extremities: Edema + Results & Data Results & Data ([facility]) Vital Signs (Past 12 Hours) Vital Signs Temp Pulse Pulse Resp BP BP Pulse Ox 06/22/22 15:30 36.5 C 82 19 106/71 99 06/22/22 15:07 88 06/22/22 11:21 36.9 C 83 19 98/70 L 100 06/22/22 11:00 06/22/22 08:04 84 06/22/22 07:59 36.6 C 82 20 95/64 L 97 O2 Del Method O2 Flow Rate 06/22/22 15:30 High Flow Nasal Cannula 5 06/22/22 15:07 06/22/22 11:21 Nasal Cannula 4 06/22/22 11:00 High Flow Nasal Cannula 4 06/22/22 08:04 06/22/22 07:59 High Flow Nasal Cannula 6 Laboratory Results Short CBC 06/22/22 Range/Units 05:26 WBC 14.87 H (4.8-10.8) K/ul Hgb 8.2 L (14.0-18.0) g/dl Hct 26.2 L (40.1-51.0) % Plt Count 357 (130-400) K/uL BMP 06/21/22 06/22/22 15:42 05:26 Sodium 132 L 133 L Potassium 4.5 5.1 Chloride 92 L 93 L Carbon Dioxide 33 H 35 H BUN 35 H 37 H Creatinine 1.51 H 1.63 H Glucose 130 H 123 H Calcium 9.3 8.9 Liver Function 06/21/22 Range/Units 15:42 Total Bilirubin 1.8 H (0.2-1.0) mg/dl AST 45 H (13-39) U/L ALT 32 (7-52) U/L Alkaline Phosphatase 233 H (34-104) U/L Albumin 3.2 L (3.4-5.0) gm/dl Urine 06/21/22 Range/Units 18:05 Urine Color Dark Yellow Urine Appearance Clear (Clear) Urine pH 5.0 (4.5-7.5) Ur Specific [place] 1.015 (1.000-1.030) Urine Protein Trace H (Negative) Urine Glucose (UA) Negative (Negative) Medications Administered Current Inpatient Medications Acetaminophen (Acetaminophen 325 Mg Tab) 650 mg PO Q4H PRN PRN Reason: Pain or Fever Stop: 07/21/22 21:34 Last Admin: 06/21/22 22:00 Dose: 650 mg Albuterol (Albuterol Hfa 8 Gm Inhaler) 2 puffs INH Q4 PRN PRN Reason: Wheezing Stop: 07/21/22 20:25 Allopurinol (Allopurinol 100 Mg Tab) 100 mg PO QAM [facility] Stop: 07/22/22 08:59 Last Admin: 06/22/22 08:29 Dose: 100 mg Atorvastatin Calcium (Atorvastatin 40 Mg Tab) 40 mg PO HS [facility] Stop: 07/21/22 20:59 Last Admin: 06/21/22 21:48 Dose: 40 mg Benzonatate (Benzonatate 100 Mg Capsule) 200 mg PO DAILY PRN PRN Reason: Cough Stop: 07/21/22 20:25 Cetirizine HCl (Cetirizine Hcl 10 Mg Tablet) 5 mg PO QAM [facility] Stop: 07/22/22 08:59 Last Admin: 06/22/22 08:28 Dose: 5 mg Cyanocobalamin (Cyanocobalamin (B-12) 100 Mcg Tablet) 100 mcg PO DAILY [facility] Stop: 07/22/22 08:59 Last Admin: 06/22/22 08:29 Dose: 100 mcg Folic Acid (Folic Acid 1 Mg Tab) 1 mg PO QDL [facility] Stop: 07/22/22 11:29 Last Admin: 06/22/22 11:43 Dose: 1 mg Furosemide (Furosemide Inj 20 Mg/2 Ml Vial) 20 mg IV BID17 [facility] Stop: 07/22/22 16:59 Magnesium Oxide (Magnesium Oxide 400 Mg Tab) 400 mg PO QAM [facility] Stop: 07/22/22 08:59 Last Admin: 06/22/22 08:35 Dose: 400 mg Metoprolol Succinate (Metoprolol Succ 50mg Ext Rel Tab) 50 mg PO BID [facility] Stop: 07/21/22 20:59 Last Admin: 06/22/22 08:39 Dose: Not Given Ondansetron HCl (Ondansetron Inj 2 Mg/Ml 2 Ml Vial) 4 mg IV Q6H PRN PRN Reason: Nausea Stop: 07/21/22 21:34 Pantoprazole Sodium (Pantoprazole 40 Mg Tab) 40 mg PO DAILY [facility] Stop: 07/22/22 08:59 Last Admin: 06/22/22 08:29 Dose: 40 mg Polyethylene Glycol (Polyethylene (Miralax) 17 Gm Pack) 17 gm PO DAILY PRN PRN Reason: Constipation Stop: 07/21/22 21:34 Rivaroxaban (Rivaroxaban 15 Mg Tab) 15 mg PO HS [facility] Stop: 07/21/22 20:59 Last Admin: 06/21/22 21:48 Dose: 15 mg Vitamin D (Cholecalciferol 1,000 Units 25 Mcg Tab) 2,000 units PO QDL [facility] Stop: 07/22/22 11:29 Last Admin: 06/22/22 11:43 Dose: 2,000 units (1) Anemia Anemia type: unspecified type Qualified Code(s): D64.9 - Anemia, unspecified
[2022-06-22] MEDS: cefTRIAXone SODIUM 2,000 MG in DEXTROSE 5% 50 ML IV SCH (17:12)
[2022-06-22] MEDS: FUROSEMIDE INJ 20 MG/2 ML VIAL IV SCH (17:16)
[2022-06-22] MEDS: RIVAROXABAN 15 MG TAB PO SCH (21:08)
[2022-06-22] MEDS: ATORVASTATIN 40 MG TAB PO SCH (21:11)
[2022-06-22] MEDS: DOXYCYCLINE HYCLATE 100 MG CAP PO SCH (21:12)
[2022-06-23 06:23] LABS: Hematocrit (blood only) 26.2 % (40.1-51.0); Hemoglobin 8.1 g/dl (14.0-18.0); Mean Corpuscular Hemoglobin 31.4 pg (25.0-34.0); Mean Corpuscular Hgb Conc 30.9 g/dL (32.0-36.0); Mean Corpuscular Volume 101.6 fL (80.0-100.0); Mean Platelet Volume 11.2 fL (9.4-12.4); Platelet Count 300 K/uL (130-400); RDW Coefficient of Variation 21.1 % (11.5-14.5); RDW Standard Deviation 76.5 fL (36.4-46.3); Red Blood Count 2.58 M/uL (4.63-6.08)
[2022-06-23 06:46] LABS: BUN Creatinine Ratio 25.2 (10-20); Creatinine Clr Calc Pharmacy 54.3 ml/min; Est GFR (African American) 52.4 ml/min; Est GFR (Non-African American) 45.2 ml/min; Potassium 4.2 mmol/L (3.5-5.1)
[2022-06-23] MEDS: allopurinoL 100 MG TAB PO SCH (08:17)
[2022-06-23] MEDS: CYANOCOBALAMIN (B-12) 100 MCG TABLET PO SCH (08:17)
[2022-06-23] MEDS: MAGNESIUM OXIDE 400 MG TAB PO SCH (08:17)
[2022-06-23] MEDS: PANTOprazole 40 MG TAB PO SCH (08:17)
[2022-06-23] MEDS: CETIRIZINE HCL 10 MG TABLET PO SCH (08:17)
[2022-06-23] MEDS: FUROSEMIDE INJ 20 MG/2 ML VIAL IV SCH ×3 (08:18→19:58)
[2022-06-23] MEDS: METOPROLOL SUCC 50MG EXT REL TAB PO SCH ×2 (08:18→19:58)
[2022-06-23] MEDS: cefTRIAXone SODIUM 2,000 MG in DEXTROSE 5% 50 ML IV SCH (08:23)
[2022-06-23] MEDS: DOXYCYCLINE HYCLATE 100 MG CAP PO SCH ×2 (09:07→19:56)
[2022-06-23] MEDS: FOLIC ACID 1 MG TAB PO SCH (11:40)
[2022-06-23] MEDS: CHOLECALCIFEROL 1,000 UNITS 25 MCG TAB PO SCH (11:40)
--- NOTE | 2022-06-23 12:37 | Cardiology Progress Note ---
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 Issues addressed are as follows 1. Acute on chronic systolic heart failure. Chest x-ray does reflect mild increase in edema. This is superimposed on chronic possibly worsening interstitial lung disease. Blood pressures are marginal we will increase IV furosemide at 20 mg 3 times per day, oxygen supplementation. Suspect part of patient's hypoxia reflects underlying lung disease 2. Paroxysmal atrial fibrillation with new onset recent. Rates are controlled and patient anticoagulated chronically. Would continue metoprolol. Echocardiogram with mild left atrial dilatation as well as right atrial dilatation. Suspect patient will remain in atrial fibrillation. Rates controlled. We will add low-dose digoxin 3. Chronic interstitial lung disease/squamous cell carcinoma of the lung contributing to hypoxia. Patient on chemotherapy and should be followed closely for worsening process, superimposed infection 4. CKD stage III we will continue to follow renal function while on IV diuretics Admission and Anticipated Discharge Date Admission Date: June 21, 2022 Subjective Patient seen and examined, chart, medications, telemetry reviewed. Little change still with moderate dyspnea. Remains in atrial fibrillation with controlled ventricular response No worsening edema. No bleeding. No dizziness or lightheadedness. Review of Systems Review of Systems: All systems reviewed & are unremarkable except as noted in Subjective Physical Exam Constitutional: + obese; no acute distress Eyes: PERRL, conjunctivae normal, anicteric sclerae ENMT: external ear and nose normal, oropharynx normal Neck: trachea midline, no thyromegaly Respiratory: Auscultation: + crackles (Lower one half lung prater bilaterally) Cardiovascular: Rate/Rhythm: + irregularly irregular Heart Sounds: normal S1 and normal S2; no gallop and no murmur Palpation: normal PMI Vessels: normal carotid upstroke and radial pulses present; no JVD and no carotid bruit Extremities: + edema (Trace to 1+ lower extremity) Gastrointestinal (Abdomen): normal bowel sounds, soft, nontender, no hepatosplenomegaly Musculoskeletal: no cyanosis or clubbing, extremities motor strength 5/5 Skin: no rashes, warm and dry Neurologic: PERRL, EOMI, accommodation nl, no face palsy, no dysarthria Psychiatric: A+Ox3, euthymic affect Results & Data ([facility] [place]) Vital Signs (Past 12 Hours) Vital Signs Temp Pulse Pulse Resp BP BP Pulse Ox 06/23/22 09:00 88 06/23/22 09:00 06/23/22 08:11 36.6 C 101 H 19 94/63 L 91 06/23/22 03:22 36.8 C 103 H 18 93/65 L 97 O2 Del Method O2 Flow Rate 06/23/22 09:00 06/23/22 09:00 Nasal Cannula 4 06/23/22 08:11 High Flow Nasal Cannula 3.5 06/23/22 03:22 Nasal Cannula Laboratory Results Laboratory Results - last 24 hr 06/23/22 06/23/22 06/23/22 05:27 05:27 05:27 WBC 8.00 RBC 2.58 L Hgb 8.1 L Hct 26.2 L MCV 101.6 H MCH 31.4 MCHC 30.9 L RDW Std Deviation 76.5 H RDW Coeff of Yogi 21.1 H Plt Count 300 MPV 11.2 Sodium 132 L Potassium 4.2 Chloride 92 L Carbon Dioxide 33 H Anion Gap 7 BUN 38 H Creatinine 1.51 H Est Cr Clr Drug Dosing 54.3 Est GFR ( Amer) 52.4 Est GFR (Non-Af Amer) 45.2 BUN/Creatinine Ratio 25.2 H Glucose 98 Calcium 9.0 Procalcitonin 0.75 H (1) Squamous cell carcinoma lung Laterality: unspecified laterality Qualified Code(s): C34.90 - Malignant neoplasm of unspecified part of unspecified bronchus or lung
[2022-06-23] MEDS ORDERED: BENZONATATE 100 MG CAPSULE PO PRN (13:53)
--- NOTE | 2022-06-23 13:53 | Hospitalist Progress Note ---
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 Acute on chronic respiratory failure with hypoxia Acute on chronic systolic heart failure Progressive shortness of breath, despite increased home 2 L nasal cannula prior to arrival Found to be saturating in 70s initially, improved to 90% on 6L oxymask, now on 5 L NC s/p iv lasix- clinically improving and feeling better- cardiology managing diuresis echo with EF 35-40% Continue empiric antibiotics given his immunosuppression with persistent leucocytosis and elevated procal, CXR reviewed, has SOB with cough. Follow sputum clx. Will consider CT chest and pulm evaluation if no improvement. Squamous cell carcinoma lung Follows with Dr. Petersen of [facility] onc and was seen in follow up earlier today. Chemo regimen includes gemcitabine and the carboplatin chemotherapy which was started in December 2021 Last received chemo 06/17/22 Anemia Recent admissions with severe anemia requiring prbc transfusions Receiving Aranesp for chronic anemia every 3 weeks Hgb stable at 9. 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 Continue to monitor with daily BMP CAD (coronary artery disease) Stable. Continue statin, Toprol Deep vein thrombosis intermediate (current) use of anticoagulants H/o DVT/PE in 2016. Continue Xarelto Paroxysmal atrial fibrillation Continue Toprol, xarelto. Digoxin added by cardio DVT Ppx: Xarelto Dispo: PCU on tele. continue iv diuresis, continue to wean down oxygen as tolerated. will need 2 step O2 eval at discharge. Updated and sister at bedside Admission and Anticipated Discharge Date Admission Date: June 21, 2022 Subjective He states he feels better. Denies any new issues. Breathing is improved. No fever, chills, N/V. Physical Exam Physical Exam: General: Lying comfortably in bed, not in distress, on NC Chest: Fair breath sounds bilaterally with basilar rales CVS: Irregular, normal heart sounds, no murmur Abdomen: Soft, non tender, not distended, normal bowel sounds Neuro: Awake, alert, oriented, conversing well, non focal Extremities: Edema + Results & Data Results & Data ([facility]) Vital Signs (Past 12 Hours) Vital Signs Temp Pulse Pulse Resp BP BP Pulse Ox 06/23/22 12:41 36.6 C 98 H 24 96/68 L 92 06/23/22 09:00 88 06/23/22 09:00 06/23/22 08:11 36.6 C 101 H 19 94/63 L 91 06/23/22 03:22 36.8 C 103 H 18 93/65 L 97 O2 Del Method O2 Flow Rate 06/23/22 12:41 High Flow Nasal Cannula 5 06/23/22 09:00 06/23/22 09:00 Nasal Cannula 4 06/23/22 08:11 High Flow Nasal Cannula 3.5 06/23/22 03:22 Nasal Cannula Laboratory Results Short CBC 06/23/22 Range/Units 05:27 WBC 8.00 (4.8-10.8) K/ul Hgb 8.1 L (14.0-18.0) g/dl Hct 26.2 L (40.1-51.0) % Plt Count 300 (130-400) K/uL BMP 06/23/22 05:27 Sodium 132 L Potassium 4.2 Chloride 92 L Carbon Dioxide 33 H BUN 38 H Creatinine 1.51 H Glucose 98 Calcium 9.0 Medications Administered Current Inpatient Medications Acetaminophen (Acetaminophen 325 Mg Tab) 650 mg PO Q4H PRN PRN Reason: Pain or Fever Stop: 07/21/22 21:34 Last Admin: 06/21/22 22:00 Dose: 650 mg Albuterol (Albuterol Hfa 8 Gm Inhaler) 2 puffs INH Q4 PRN PRN Reason: Wheezing Stop: 07/21/22 20:25 Allopurinol (Allopurinol 100 Mg Tab) 100 mg PO QAM [facility] Stop: 07/22/22 08:59 Last Admin: 06/23/22 08:17 Dose: 100 mg Atorvastatin Calcium (Atorvastatin 40 Mg Tab) 40 mg PO HS [facility] Stop: 07/21/22 20:59 Last Admin: 06/22/22 21:11 Dose: 40 mg Benzonatate (Benzonatate 100 Mg Capsule) 200 mg PO DAILY PRN PRN Reason: Cough Stop: 07/21/22 20:25 Cetirizine HCl (Cetirizine Hcl 10 Mg Tablet) 5 mg PO QAM [facility] Stop: 07/22/22 08:59 Last Admin: 06/23/22 08:17 Dose: 5 mg Cyanocobalamin (Cyanocobalamin (B-12) 100 Mcg Tablet) 100 mcg PO DAILY [facility] Stop: 07/22/22 08:59 Last Admin: 06/23/22 08:17 Dose: 100 mcg Digoxin (Digoxin 0.125 Mg Tab) 0.125 mg PO DAILY@1600 [facility] Stop: 07/23/22 15:59 Doxycycline Hyclate (Doxycycline Hyclate 100 Mg Cap) 100 mg PO BID [facility] Stop: 06/29/22 20:59 Last Admin: 06/23/22 09:07 Dose: 100 mg Folic Acid (Folic Acid 1 Mg Tab) 1 mg PO QDL [facility] Stop: 07/22/22 11:29 Last Admin: 06/23/22 11:40 Dose: 1 mg Furosemide (Furosemide Inj 20 Mg/2 Ml Vial) 20 mg IV TID [facility] Stop: 07/23/22 13:59 Ceftriaxone Sodium 2,000 mg/ (Dextrose) 70 mls @ 100 mls/hr IV DAILY [facility]; Protocol Stop: 06/29/22 16:29 Last Infusion: 06/23/22 09:07 Dose: Infused Magnesium Oxide (Magnesium Oxide 400 Mg Tab) 400 mg PO QAM [facility] Stop: 07/22/22 08:59 Last Admin: 06/23/22 08:17 Dose: 400 mg Metoprolol Succinate (Metoprolol Succ 50mg Ext Rel Tab) 50 mg PO BID [facility] Stop: 07/21/22 20:59 Last Admin: 06/23/22 08:18 Dose: 50 mg Ondansetron HCl (Ondansetron Inj 2 Mg/Ml 2 Ml Vial) 4 mg IV Q6H PRN PRN Reason: Nausea Stop: 07/21/22 21:34 Pantoprazole Sodium (Pantoprazole 40 Mg Tab) 40 mg PO DAILY [facility] Stop: 07/22/22 08:59 Last Admin: 06/23/22 08:17 Dose: 40 mg Polyethylene Glycol (Polyethylene (Miralax) 17 Gm Pack) 17 gm PO DAILY PRN PRN Reason: Constipation Stop: 07/21/22 21:34 Rivaroxaban (Rivaroxaban 15 Mg Tab) 15 mg PO HS [facility] Stop: 07/21/22 20:59 Last Admin: 06/22/22 21:08 Dose: 15 mg Vitamin D (Cholecalciferol 1,000 Units 25 Mcg Tab) 2,000 units PO QDL [facility] Stop: 07/22/22 11:29 Last Admin: 06/23/22 11:40 Dose: 2,000 units (1) Anemia Anemia type: unspecified type Qualified Code(s): D64.9 - Anemia, unspecified
[2022-06-23] MEDS: DIGOXIN 0.125 MG TAB PO SCH (16:49)
[2022-06-23] MEDS: RIVAROXABAN 15 MG TAB PO SCH (19:57)
[2022-06-23] MEDS: ATORVASTATIN 40 MG TAB PO SCH (19:57)
[2022-06-24 07:04] LABS: Hematocrit (blood only) 25.3 % (40.1-51.0); Hemoglobin 7.9 g/dl (14.0-18.0); Mean Corpuscular Hemoglobin 31.2 pg (25.0-34.0); Mean Corpuscular Hgb Conc 31.2 g/dL (32.0-36.0); Mean Platelet Volume 11.3 fL (9.4-12.4); Nucleated RBC # (auto) 0.03 K/uL (0-0); Nucleated RBC % (auto) 0.7 %; Platelet Count 268 K/uL (130-400); RDW Coefficient of Variation 20.9 % (11.5-14.5); RDW Standard Deviation 75.2 fL (36.4-46.3); Red Blood Count 2.53 M/uL (4.63-6.08); White Blood Count 4.28 K/ul (4.8-10.8)
[2022-06-24 07:35] LABS: BUN Creatinine Ratio 25.5 (10-20); Calcium 8.9 mg/dl (8.5-10.1); Creatinine Clr Calc Pharmacy 55.1 ml/min; Est GFR (African American) 53.2 ml/min; Est GFR (Non-African American) 45.9 ml/min; Magnesium 1.5 mg/dl (1.7-2.4)
[2022-06-24] MEDS: MAGNESIUM SULFATE / D5W 1 GM/100 ML BAG IV SCH ×2 (08:10→10:18)
[2022-06-24] MEDS: CETIRIZINE HCL 10 MG TABLET PO SCH (08:12)
[2022-06-24] MEDS: allopurinoL 100 MG TAB PO SCH (08:12)
[2022-06-24] MEDS: CYANOCOBALAMIN (B-12) 100 MCG TABLET PO SCH (08:13)
[2022-06-24] MEDS: DOXYCYCLINE HYCLATE 100 MG CAP PO SCH ×2 (08:13→20:15)
[2022-06-24] MEDS: PANTOprazole 40 MG TAB PO SCH (08:14)
[2022-06-24] MEDS: MAGNESIUM OXIDE 400 MG TAB PO SCH (08:14)
[2022-06-24] MEDS: METOPROLOL SUCC 50MG EXT REL TAB PO SCH ×2 (08:14→20:15)
[2022-06-24] MEDS: FUROSEMIDE INJ 20 MG/2 ML VIAL IV SCH ×3 (08:14→16:41)
[2022-06-24] MEDS: cefTRIAXone SODIUM 2,000 MG in DEXTROSE 5% 50 ML IV SCH (10:17)
--- NOTE | 2022-06-24 11:22 | Cardiology Progress Note ---
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 Issues addressed are as follows 1. Acute on chronic systolic heart failure. Chest x-ray does reflect mild increase in edema. This is superimposed on chronic possibly worsening interstitial lung disease. Suspect part of patient's hypoxia reflects underlying lung disease 2. Paroxysmal atrial fibrillation with new onset recent. Rates are controlled and patient anticoagulated chronically. Would continue metoprolol. Echocardiogram with mild left atrial dilatation as well as right atrial dilatation. Suspect patient will remain in atrial fibrillation. Rates controlled. We will add low-dose digoxin 3. Chronic interstitial lung disease/squamous cell carcinoma of the lung contributing to hypoxia. Patient on chemotherapy and should be followed closely for worsening process, superimposed infection 4. CKD stage III we will continue to follow renal function while on IV diuretics 06/24/2022. Patient slowly improving although significant diuresis not noted by weight and I's and O's Will repeat chest x-ray Give additional digoxin 0.25 mg p.o. today continue on daily dose of 0.125 mg/day for further heart rate control. Do not expect patient to return to sinus rhythm and atrial fibrillation likely due to remain persistent Hemoglobin trending down slowly. Would consider transfusion with transient increase in diuretic dosing surrounding transfusion Will require higher dose of furosemide on discharge Admission and Anticipated Discharge Date Admission Date: June 21, 2022 Subjective Patient seen and examined, chart, medications, telemetry reviewed. Patient notes some improvement today still with chronic low-grade cough and significant O2 requirements. No chest pains or tachypalpitations no dizziness. Remains in atrial fibrillation with mostly controlled rate on telemetry Review of Systems Review of Systems: All systems reviewed & are unremarkable except as noted in Subjective Physical Exam Constitutional: + obese; no acute distress Eyes: PERRL, conjunctivae normal, anicteric sclerae ENMT: external ear and nose normal, oropharynx normal Neck: trachea midline, no thyromegaly Respiratory: Auscultation: + crackles (Lower one half lung prater bilaterally) Cardiovascular: Rate/Rhythm: + irregularly irregular Heart Sounds: normal S1 and normal S2; no gallop and no murmur Palpation: normal PMI Vessels: normal carotid upstroke and radial pulses present; no JVD and no carotid bruit Extremities: no edema Gastrointestinal (Abdomen): normal bowel sounds, soft, nontender, no hepatosplenomegaly Musculoskeletal: no cyanosis or clubbing, extremities motor strength 5/5 Skin: no rashes, warm and dry Neurologic: PERRL, EOMI, accommodation nl, no face palsy, no dysarthria Psychiatric: A+Ox3, euthymic affect Results & Data ([facility]) Vital Signs (Past 12 Hours) Vital Signs Temp Pulse Pulse Resp BP Pulse Ox O2 Del Method 06/24/22 10:18 Nasal Cannula 06/24/22 07:41 36.5 C 104 H 21 119/80 91 Nasal Cannula 06/24/22 06:59 80 06/24/22 04:00 36.3 C L 90 18 104/70 95 Nasal Cannula O2 Flow Rate 06/24/22 10:18 4 06/24/22 07:41 6 06/24/22 06:59 06/24/22 04:00 5 Laboratory Results Laboratory Results - last 24 hr 06/24/22 06/24/22 06/24/22 06:05 06:05 06:05 WBC 4.28 L RBC 2.53 L Hgb 7.9 L Hct 25.3 L MCV 100.0 MCH 31.2 MCHC 31.2 L RDW Std Deviation 75.2 H RDW Coeff of Yogi 20.9 H Plt Count 268 MPV 11.3 Absolute Nucleated RBC 0.03 H Nucleated RBC % (auto) 0.7 Sodium 133 L Potassium 4.0 Chloride 92 L Carbon Dioxide 35 H Anion Gap 6 BUN 38 H Creatinine 1.49 H Est Cr Clr Drug Dosing 55.1 Est GFR ( Amer) 53.2 Est GFR (Non-Af Amer) 45.9 BUN/Creatinine Ratio 25.5 H Glucose 108 H Calcium 8.9 Magnesium 1.5 L B-Natriuretic Peptide 489 H (1) Squamous cell carcinoma lung Laterality: unspecified laterality Qualified Code(s): C34.90 - Malignant neoplasm of unspecified part of unspecified bronchus or lung
--- NOTE | 2022-06-24 11:59 | Hospitalist Progress Note ---
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 Acute on chronic respiratory failure with hypoxia- likely multifactorial with his ILD, lung cancer, CHF. Acute on chronic systolic heart failure Progressive shortness of breath, despite increased home 2 L nasal cannula prior to arrival Found to be saturating in 70s initially, improved to 90% on 6L oxymask, now on 4 L NC s/p iv lasix- clinically improving and feeling better- cardiology managing diuresis echo with EF 35-40% Continue empiric antibiotics given his immunosuppression with persistent leucocytosis and elevated procal, CXR reviewed, has SOB with cough. Send sputum clx if able to send. Will consider CT chest and pulm evaluation if no improvement. Repeating CXR today Squamous cell carcinoma lung Follows with Dr. Petersen of [facility] and was seen in follow up earlier today. Chemo regimen includes gemcitabine and the carboplatin chemotherapy which was started in December 2021 Last received chemo 06/17/22 Anemia Recent admissions with severe anemia requiring prbc transfusions Receiving Aranesp for chronic anemia every 3 weeks Hgb stable at 9. 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 Continue to monitor with daily BMP CAD (coronary artery disease) Stable. 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 Continue Xarelto Paroxysmal atrial fibrillation Continue Toprol, xarelto. Digoxin added by cardio DVT ppx: Xarelto Dispo: PCU on tele. continue iv diuresis, continue to wean down oxygen as tolerated. will need 2 step O2 eval at discharge. Repeating CXR today. PT OT eval Admission and Anticipated Discharge Date Admission Date: June 21, 2022 Subjective States he feels better. SOB improved. Still has some cough. No fever, chills, N/V/abd pain. Physical Exam Physical Exam: General: Lying comfortably in bed, not in distress, on NC Chest: Fair breath sounds bilaterally with basilar rales CVS: Irregular, normal heart sounds, no murmur Abdomen: Soft, non tender, not distended, normal bowel sounds Neuro: Awake, alert, oriented, conversing well, non focal Extremities: trace edema Results & Data Results & Data ([facility]) Vital Signs (Past 12 Hours) Vital Signs Temp Pulse Pulse Resp BP Pulse Ox O2 Del Method 06/24/22 10:18 Nasal Cannula 06/24/22 07:41 36.5 C 104 H 21 119/80 91 Nasal Cannula 06/24/22 06:59 80 06/24/22 04:00 36.3 C L 90 18 104/70 95 Nasal Cannula O2 Flow Rate 06/24/22 10:18 4 06/24/22 07:41 6 06/24/22 06:59 06/24/22 04:00 5 Laboratory Results Short CBC 06/24/22 Range/Units 06:05 WBC 4.28 L (4.8-10.8) K/ul Hgb 7.9 L (14.0-18.0) g/dl Hct 25.3 L (40.1-51.0) % Plt Count 268 (130-400) K/uL BMP 06/24/22 06:05 Sodium 133 L Potassium 4.0 Chloride 92 L Carbon Dioxide 35 H BUN 38 H Creatinine 1.49 H Glucose 108 H Calcium 8.9 Medications Administered Current Inpatient Medications Acetaminophen (Acetaminophen 325 Mg Tab) 650 mg PO Q4H PRN PRN Reason: Pain or Fever Stop: 07/21/22 21:34 Last Admin: 06/21/22 22:00 Dose: 650 mg Albuterol (Albuterol Hfa 8 Gm Inhaler) 2 puffs INH Q4 PRN PRN Reason: Wheezing Stop: 07/21/22 20:25 Allopurinol (Allopurinol 100 Mg Tab) [place] Stop: 07/22/22 08:59 Last Admin: 06/24/22 08:12 Dose: 100 mg Atorvastatin Calcium (Atorvastatin 40 Mg Tab) 40 mg PO HS [facility] Stop: 07/21/22 20:59 Last Admin: 06/23/22 19:57 Dose: 40 mg Benzonatate (Benzonatate 100 Mg Capsule) 200 mg PO TID PRN PRN Reason: Cough Stop: 07/21/22 20:25 Cetirizine HCl (Cetirizine Hcl 10 Mg Tablet) 5 mg PO QAM [facility] Stop: 07/22/22 08:59 Last Admin: 06/24/22 08:12 Dose: 5 mg Cyanocobalamin (Cyanocobalamin (B-12) 100 Mcg Tablet) 100 mcg PO DAILY [facility] Stop: 07/22/22 08:59 Last Admin: 06/24/22 08:13 Dose: 100 mcg Digoxin (Digoxin 0.125 Mg Tab) 0.125 mg PO DAILY@1600 [facility] Stop: 07/23/22 15:59 Last Admin: 06/23/22 16:49 Dose: 0.125 mg Doxycycline Hyclate (Doxycycline Hyclate 100 Mg Cap) 100 mg PO BID [facility] Stop: 06/29/22 20:59 Last Admin: 06/24/22 08:13 Dose: 100 mg Folic Acid (Folic Acid 1 Mg Tab) 1 mg PO QDL [facility] Stop: 07/22/22 11:29 Last Admin: 06/23/22 11:40 Dose: 1 mg Furosemide (Furosemide Inj 20 Mg/2 Ml Vial) 20 mg IV TID [facility] Stop: 07/23/22 13:59 Last Admin: 06/24/22 08:14 Dose: 20 mg Ceftriaxone Sodium 2,000 mg/ (Dextrose) 70 mls @ 100 mls/hr IV DAILY [facility]; Protocol Stop: 06/29/22 16:29 Last Infusion: 06/24/22 11:21 Dose: Infused Magnesium Sulfate/Dextrose (Magnesium Sulfate / D5w) 1 gm in 100 mls @ 50 mls/hr IV Q2H [facility] Stop: 06/24/22 11:44 Last Admin: 06/24/22 10:18 Dose: 50 mls/hr Magnesium Oxide (Magnesium Oxide 400 Mg Tab) 400 mg PO QAM [facility] Stop: 07/22/22 08:59 Last Admin: 06/24/22 08:14 Dose: 400 mg Metoprolol Succinate (Metoprolol Succ 50mg Ext Rel Tab) 50 mg PO BID [facility] Stop: 07/21/22 20:59 Last Admin: 06/24/22 08:14 Dose: 50 mg Ondansetron HCl (Ondansetron Inj 2 Mg/Ml 2 Ml Vial) 4 mg IV Q6H PRN PRN Reason: Nausea Stop: 07/21/22 21:34 Pantoprazole Sodium (Pantoprazole 40 Mg Tab) 40 mg PO DAILY [facility] Stop: 07/22/22 08:59 Last Admin: 06/24/22 08:14 Dose: 40 mg Polyethylene Glycol (Polyethylene (Miralax) 17 Gm Pack) 17 gm PO DAILY PRN PRN Reason: Constipation Stop: 07/21/22 21:34 Rivaroxaban (Rivaroxaban 15 Mg Tab) 15 mg PO HS [facility] Stop: 07/21/22 20:59 Last Admin: 06/23/22 19:57 Dose: 15 mg Vitamin D (Cholecalciferol 1,000 Units 25 Mcg Tab) 2,000 units PO QDL [facility] Stop: 07/22/22 11:29 Last Admin: 06/23/22 11:40 Dose: 2,000 units (1) Anemia Anemia type: unspecified type Qualified Code(s): D64.9 - Anemia, unspecified
[2022-06-24] MEDS: CHOLECALCIFEROL 1,000 UNITS 25 MCG TAB PO SCH (12:23)
[2022-06-24] MEDS: FOLIC ACID 1 MG TAB PO SCH (12:23)
[2022-06-24] MEDS ORDERED: DIGOXIN 0.125 MG TAB PO ONE (12:45)
[2022-06-24] MEDS: POLYETHYLENE (MIRALAX) 17 GM PACK PO PRN (12:59)
--- NOTE | 2022-06-24 13:13 | XRay Report ---
XR chest 1V portable HISTORY: 71 years-old Male Hypoxia, interstitial lung disease, squamous LC acute hypoxia patient wit h chronic lung disease COMPARISON: Chest radiograph 06/21/2022, CTA chest 11/20/2019. TECHNIQUE: Portable AP view of the chest FINDINGS: Cardiac silhouette is enlarged. Left subclavian pacer/AICD. No pneumothorax. Small pleural effusions with persistent bibasilar consolidation. Mixed interstitial and alveolar opacities are redemonstrated which appears similar to mildly progressed. Degenerative changes of the shoulders and spine. IMPRESSION: 1. Cardiomegaly with progressive mixed interstitial and alveolar opacities. Findings are suggestive o f pulmonary edema superimposed on chronic fibrosis. 2. Small pleural effusions. ACT 112: Negative or not required by law. The above report was generated using voice recognition software. It may contain grammatical, syntax o r spelling errors. Electronically signed by: Rogelio Sapp M.D. 06/24/2022 1:11 PM
--- NOTE | 2022-06-24 15:50 | Communication Note ---
Date of Service: June 24, 2022 Chest x-ray reviewed demonstrates increasing interstitial edema superimposed on interstitial lung disease. Furosemide increased to 40 mg IV 3 times daily
[2022-06-24] MEDS: DIGOXIN 0.125 MG TAB PO SCH (16:41)
[2022-06-24] MEDS: ATORVASTATIN 40 MG TAB PO SCH (20:15)
[2022-06-24] MEDS: RIVAROXABAN 15 MG TAB PO SCH (20:15)
[2022-06-25 06:14] LABS: Hematocrit (blood only) 26.8 % (40.1-51.0); Hemoglobin 8.3 g/dl (14.0-18.0); Mean Platelet Volume 11.4 fL (9.4-12.4); Nucleated RBC # (auto) 0.08 K/uL (0-0); Nucleated RBC % (auto) 1.3 %; Platelet Count 235 K/uL (130-400); RDW Standard Deviation 74.5 fL (36.4-46.3); Red Blood Count 2.68 M/uL (4.63-6.08); White Blood Count 6.04 K/ul (4.8-10.8)
[2022-06-25 06:45] LABS: BUN Creatinine Ratio 25.4 (10-20); Calcium 9.2 mg/dl (8.5-10.1); Est GFR (African American) 62.7 ml/min; Est GFR (Non-African American) 54.1 ml/min; Magnesium 1.6 mg/dl (1.7-2.4); Potassium 4.3 mmol/L (3.5-5.1)
[2022-06-25] MEDS ORDERED: MAGNESIUM SULFATE / D5W 1 GM/100 ML BAG IV ONE (08:00)
[2022-06-25] MEDS: FUROSEMIDE INJ 20 MG/2 ML VIAL IV SCH ×3 (08:18→16:26)
--- NOTE | 2022-06-25 10:10 | CT Scan Report ---
CT SCAN OF THE CHEST WITHOUT IV CONTRAST CLINICAL HISTORY: Hypoxia. Congestive heart failure. COMPARISON STUDY: Chest x-ray dated 06/24/2022. A chest CT dated 11/20/2019. TECHNIQUE: CT scan of the thorax was performed from the thoracic inlet to the upper abdomen. Images are reviewed in the axial, sagittal, and coronal planes. IV contrast was not administered for this ex amination as per the referring clinician. A dose lowering technique was utilized adhering to the dru Prater. The examination is compromised by motion artifact, as well as by streak artifact fr om the arms which could not be elevated above the chest. CT DOSE: 1076.19 mGy.cm FINDINGS: Thyroid: Mildly enlarged and heterogeneous. Thoracic aorta: The thoracic aorta is normal in caliber and demonstrates standard 3-vessel arch anato my. Heart: A cardiac AICD is present in the left chest wall. The heart is enlarged noting trace pericardi al effusion. The coronary arteries are densely calcified. Lungs and pleural spaces: Again seen are changes of chronic interstitial lung disease. There is diffu se subpleural reticulation. Traction bronchiectasis is noted in the lower lobes. No honeycombing is s een. Intralobular septal thickening is seen throughout both lungs. There is diffuse airspace consolid ation throughout both lungs, with mild spurring at the apices. There are small pleural effusions, rig ht larger than left with associated atelectasis. The trachea and central airways are clear. There is no pneumothorax. Mediastinum: There are numerous mildly enlarged mediastinal lymph nodes which measure up to 14 [address] rt axis. Several containing calcifications. Violette: There are calcified right hilar lymph nodes. Note that the violette are not well assessed without I V contrast. Axillae: There is no axillary lymphadenopathy. Upper abdomen: Calcified granulomas are noted in the liver and spleen. Partially visualized upper abd ominal viscera is within normal limits. Skeletal structures: The skeletal structures are osteopenic. Degenerative change is noted in the shou lders and thoracic spine. No lytic or blastic bony lesions are seen. Soft tissues: Gynecomastia is noted. IMPRESSION: 1. Streak and motion compromised examination. 2. Cardiomegaly an AICD with evidence of congestive failure. 3. Diffuse airspace consolidation throughout both lungs likely represents pulmonary edema. This could also be seen with multifocal pneumonia and/or ARDS. Clinical correlation will be essential. 4. Right larger than left pleural effusions. 5. Again seen are changes of chronic interstitial lung disease. This cannot be compared to previous d ue to extensive superimposed airspace consolidation. 6. Mediastinal lymphadenopathy is increased from previous. This is likely reactive. 7. Calcified mediastinal and hilar lymph nodes are unchanged. ACT 112: Negative or not required by law. Electronically signed by: Be Domínguez M.D. 06/25/2022 10:07 AM
[2022-06-25] MEDS: CETIRIZINE HCL 10 MG TABLET PO SCH (10:23)
[2022-06-25] MEDS: allopurinoL 100 MG TAB PO SCH (10:23)
[2022-06-25] MEDS: CYANOCOBALAMIN (B-12) 100 MCG TABLET PO SCH (10:24)
[2022-06-25] MEDS: DOXYCYCLINE HYCLATE 100 MG CAP PO SCH ×2 (10:24→20:19)
[2022-06-25] MEDS: METOPROLOL SUCC 50MG EXT REL TAB PO SCH ×2 (10:25→20:22)
[2022-06-25] MEDS: MAGNESIUM OXIDE 400 MG TAB PO SCH (10:25)
[2022-06-25] MEDS: PANTOprazole 40 MG TAB PO SCH (10:25)
--- NOTE | 2022-06-25 10:35 | Pulmonary Consultation ---
Date of Consultation June 25, 2022 Assessment & Plan (1) Acute on chronic respiratory failure with hypoxia: (2) Acute decompensated heart failure: (3) Squamous cell carcinoma lung: Laterality: unspecified laterality Qualified Code(s): C34.90 - Malignant neoplasm of unspecified part of unspecified bronchus or lung (4) ILD (interstitial lung disease): Plan CT chest 06/25/2022 personally reviewed: Diffuse alveolar opacities appreciated bilaterally Small bilateral pleural effusion, little more on the right side Elevated right hemidiaphragm Cardiomegaly Calcified mediastinal hilar lymph nodes --Acute on chronic hypoxic respiratory failure Multifactorial I do think major part is most likely from systolic CHF Patient also has underlying ILD not on any treatment right now For the time being I would recommend continuing with diuresis Would recommend the patient to be on BiPAP COVID 19 PCR negative BNP 489 Procalcitonin 0.45--> 0.75 The bilateral alveolar opacities could represent pulmonary edema as well as infection, the way it looks on the CAT scan pulmonary edema would be high in differential. Patient is already on antibiotic --COPD Not on any inhalers right now I will start the patient on Incruse to be used on a daily basis -- ILD Not on any treatment at home I doubt this is exacerbation of underlying allergy but he cannot be ruled out 100% Plan: Continue with diuresis to keep the patient negative balance BiPAP continuous for the time being Patient is already on Rocephin and doxycycline. Would recommend to complete the course for 7 days Start increased to be used on a daily basis Follow-up nasal MRSA, influenza A/B Case was discussed with hospitalist, RT Please note the above document was generated using voice recognition software. It may contain grammatical, syntax or spelling errors.Any formal questions or concerns about the content, text or information contained within the body of this dictation should be directly addressed to the provider for clarification. History of Present Illness Attending Physician: Jones Berrios MD History of Present Illness 71-year-old male was admitted to hospital because of worsening shortness of breath Past medical history: Systolic CHF, ILD on chronic O2, history of lung cancer, paroxysmal A. fib, history of DVT and PE Pulmonary consulted for persistent hypoxia At the time of examination patient was on 8 L Oxymizer saturating 99%. Not in any significant respiratory distress He did have DVT Overall he said he feels better compared to when he came to the hospital Denies any nausea vomiting No chest pain, no headache, no blurry vision No fever or chills Has been urinating well No personal or family history of any autoimmune disease like lupus, sarcoid, Sjogren's, rheumatoid. Social history: [id number] smoking history quit around the age of 56, used to work in [employer]. No red mask at the time Allergies Allergy/AdvReac Type Severity Reaction Status Date / Time diphtheria toxoid,fluid Allergy Severe CONVULSIONS--HORSE Verified 06/21/22 19:29 SERUM BASE tetanus toxoid, adsorbed Allergy Severe CONVULSIONS--HORSE Verified 06/21/22 19:29 SERUM BASE Home Medications Medication Instructions Recorded Confirmed Type atorvastatin 40 mg tablet 40 mg PO HS 10/29/19 06/21/22 History cholecalciferol (vitamin D3) 25 2,000 unit PO QDL 11/20/19 06/21/22 History mcg (1,000 unit) capsule (Vitamin D3) folic acid 1 mg tablet 1 mg PO QDL 06/08/20 06/21/22 History metoprolol succinate 50 mg 50 mg PO BID 01/04/21 06/21/22 History tablet,extended release 24 hr cetirizine 10 mg tablet (Zyrtec) 5 mg PO QAM 08/16/21 06/21/22 History furosemide 40 mg tablet 40 mg PO QAM #0 tabs 12/31/21 06/21/22 Rx rivaroxaban 15 mg tablet (Xarelto) 15 mg PO HS #30 tabs 12/31/21 06/21/22 Rx ondansetron HCl 8 mg tablet 8 mg PO Q8H PRN Nausea 02/21/22 06/21/22 History prochlorperazine maleate 10 mg 10 mg PO Q6H PRN Nausea 02/21/22 06/21/22 History tablet pantoprazole 20 mg tablet,delayed 20 mg PO DAILY #90 tabs 03/18/22 06/21/22 Rx release allopurinol 100 mg tablet 100 mg PO QAM 05/26/22 06/21/22 History cyanocobalamin (vitamin B-12) 100 100 mcg PO DAILY 05/26/22 06/21/22 History mcg tablet (Vitamin B-12) magnesium oxide 400 mg (241.3 mg 400 mg PO QAM #30 tabs 05/29/22 06/21/22 Rx magnesium) tablet albuterol sulfate 90 mcg/actuation 2 puff inhalation Q4 PRN Wheezing 06/21/22 06/21/22 History aerosol inhaler benzonatate 200 mg capsule 200 mg PO UD PRN Cough 06/21/22 06/21/22 History Patient History Medical History Acute GI bleeding Atrial fibrillation dx 2016 - follows w/ Dr. Trejo Chronic systolic heart failure CKD (chronic kidney disease), stage III Congestive heart failure Deep vein thrombosis RLE - 2016 dx while hospitalized w/ pneumonia Duodenal ulcer Hearing deficit BL [facility] Hematoma of left lower extremity Osteoarthritis Pneumonia Pulmonary embolism 2016 - dx while hospitalized w/ pneumonia - on xarelto Surgical History History of appendectomy History of cardiac catheterization 2015 - [place] - no stents History of cardioversion 11/08/2016 History of carpal tunnel release of both wrists History of cataract surgery History of colonoscopy History of esophagogastroduodenoscopy (EGD) History of evacuation of hematoma LLE History of shoulder surgery Left 2004 History of tonsillectomy Presence of combination internal cardiac defibrillator (ICD) and pacemaker placed 2016 - 64. comtronic - last checked 1 year ago - follows w/ dr. yeh Family History Mother Diabetes Grandfather (Paternal) No problems noted. Father Lymphoma Grandfather (Maternal) Myocardial infarction Other No family history of adverse response to anesthesia Denies family history of Ovarian cancer Prostate cancer Heart disease Breast cancer Colorectal cancer Social History Smoking Status: Former smoker Tobacco Type: Cigarettes Age Quit Using Tobacco: 53; Cigarettes Per Day: 1 pack a day; Second Hand Exposure: No; Do You Dip or Chew Tobacco: No; Tobacco Cessation Education Requested by Patient: No Hx Alcohol Use: No Hx Substance Use: No Preferred Language: Upper Sorbian Communication Ability: Effective Visual Impairment: Limited Hearing Ability: Use of Hearing Aid Nut Chopper Required: No Beliefs That Will Affect Care: None marital status: Current Living Situation: Spouse current occupational status: retired 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 [employer] How many Children do You have: 0 Other Information That Helps Us Care for You: No Feels Safe at Home: Yes Safety Concerns: Feels Safe At This Time Childhood Exposure to Second-Hand Smoke: Yes (dad did ) caffeine: Yes (cup of coffee in morning ) Dental Care, Regularly: No Physical Activity Frequency: Does not Exercise Seatbelt Use: always Sunscreen Use: No (doesn't go out in sun ) Assistive Devices: Bedside Commode, Cane and Walker Assistive Devices Comment: Hearing aides at home Review of Systems Review of Systems: All systems reviewed & are unremarkable except as noted in HPI & below Physical Exam Physical Exam: Constitutional: No acute distress HEENT: EOMI, PERRLA Respiratory system: Decreased air entry bilaterally, no wheeze, rhonchi, positive crackles bilaterally (Velcro-like as well lower lobes) CVS: S1-S2 positive, no murmurs or gallops Abdomen: Soft, nontender, nondistended, positive bowel sounds x4, obese Extremities: +2 pulses bilaterally radialis/ dorsalis pedis, no cyanosis, no edema Neuro: Awake alert oriented x3 Psych: Normal mood and affect G/U: Positive Burr Skin: no rashes, warm and dry Lymphatic: no cervical or axillary lymphadenopathy Results & Data Results & Data ([facility]) Vital Signs (Past 12 Hours) Vital Signs Temp Pulse Resp BP Pulse Ox O2 Del Method O2 Flow Rate 06/25/22 08:00 36.8 C 80 16 99/52 L 96 06/25/22 03:43 36.5 C 80 18 94/66 L 94 Oxymask 10.0 06/24/22 23:02 36.5 C 87 22 104/69 95 Oxymask 10.0 Laboratory Results 06/25/22 05:20 06/25/22 05:20 PG Care Time/CCT Total # of Minutes Spent Total Time Spent with Patient: Total time spent is greater than 50% in coordination of care (as documented) at patient's floor/unit and/or counseling patient: Coding Level of Care Code 88955 Initial Inpt Care Lvl 3 Diagnoses Acute on chronic respiratory failure with hypoxia J96.21 Acute decompensated heart failure I50.9 Squamous cell carcinoma lung C34.90 Laterality: unspecified laterality ILD (interstitial lung disease) J84.9
[2022-06-25] MEDS: cefTRIAXone SODIUM 2,000 MG in DEXTROSE 5% 50 ML IV SCH (10:36)
[2022-06-25] MEDS: FOLIC ACID 1 MG TAB PO SCH (11:40)
[2022-06-25] MEDS: CHOLECALCIFEROL 1,000 UNITS 25 MCG TAB PO SCH (11:40)
--- NOTE | 2022-06-25 11:42 | Hospitalist Progress Note ---
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 Hospital course 06/21- presented to ED with oxygen saturation in 70s, required 6L oxymask on admission. Baseline of 2 L NC. Started on iv lasix 20 mg 06/22- Echo with EF 35-40%. Seen by cardio- continued on iv lasix bid. Started on Empiric Ceftriaxone/doxy for persistent leucocytosis and immunocompromised state. 06/23- Still on 5 L NC. Iv lasix increased to 20 mg tid 06/24- Worsening hypoxia to 10 L oxymask. CXR with worsening CHF. IV lasix increased to 40 q8hr 06/25- CT with pulm edema > PNA. Seen by pulm. started on BIPAP, continue iv lasix CXR 06/21- 1. Cardiomegaly and AICD with evidence of congestive failure and pulmonary edema. CXR 06/24- Cardiomegaly with progressive mixed interstitial and alveolar opacities. Findings are suggestive of pulmonary edema superimposed on chronic fibrosis. CT chest 06/25 1. Streak and motion compromised examination. 2. Cardiomegaly an AICD with evidence of congestive failure. 3. Diffuse airspace consolidation throughout both lungs likely represents pulmonary edema. This could also be seen with multifocal pneumonia and/or ARDS. Clinical correlation will be essential. 4. Right larger than left pleural effusions. 5. Again seen are changes of chronic interstitial lung disease. This cannot be compared to previous due to extensive superimposed airspace consolidation. 6. Mediastinal lymphadenopathy is increased from previous. This is likely reactive. 7. Calcified mediastinal and hilar lymph nodes are unchanged. Acute on chronic respiratory failure with hypoxia- likely multifactorial with his CHF, ILD, lung cancer - CXR and CT chest reviewed as above - Cardio and pulm following- continue iv lasix, BIPAP and antibiotics - IV lasix increased by cardiology yesterday- monitor I and Os and daily weight for further management - Already on ABx since admission- plan for 7 day course - Continue supplemental oxygen wean off as tolerated Acute on chronic systolic heart failure - Echo with EF 35-40% - Continue iv lasix- monitor I and Os, daily weight Squamous cell carcinoma lung - Follows with Dr. Petersen of [facility] and was seen in follow up earlier today. Chemo regimen includes gemcitabine and the carboplatin chemotherapy which was started in December 2021 - Last received chemo 06/17/22 Anemia - Recent admissions with severe anemia requiring prbc transfusions - Receiving Aranesp for chronic anemia every 3 weeks - Hgb stable >8. 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 CT chest reviewed as above CKD (chronic kidney disease), stage III - Cr at baseline ~1.51, currently improved to 1.3. Continue to monitor with daily BMP CAD (coronary artery disease) - Stable. Continue statin, Toprol H/o DVT/PE in 2016- Continue Xarelto Paroxysmal atrial fibrillation- Continue Toprol, xarelto. Digoxin added by cardio COPD- started on incruse ellipta per pulm Hypomagnesemia- repleted. DVT ppx: Xarelto Dispo: PCU on tele. continue iv diuresis, bipap, continue to wean down oxygen as tolerated. will need 2 step O2 eval at discharge. Updated family at bedside 06/24 Admission and Anticipated Discharge Date Admission Date: June 21, 2022 Subjective Still on oxymask but he states he feels fine. denies any SOB. Not using accessory muscles. Comfortable. No CP, N/V, fever or chills Physical Exam Physical Exam: General: Lying comfortably in bed, not in distress, on oxymask Chest: Fair breath sounds bilaterally with basilar rales. NOt using accessory muscles CVS: Irregular, normal heart sounds, no murmur Abdomen: Soft, non tender, not distended, normal bowel sounds Neuro: Awake, alert, oriented, conversing well, non focal Extremities: trace edema Results & Data Results & Data ([facility]) Vital Signs (Past 12 Hours) Vital Signs Temp Pulse Pulse Resp BP Pulse Ox O2 Del Method 08/27/22 10:55 74 37 H 95 06/25/22 08:00 Oxymask 06/25/22 08:00 36.8 C 80 16 99/52 L 96 06/25/22 03:43 36.5 C 80 18 94/66 L 94 Oxymask O2 Flow Rate FiO2 06/25/22 10:55 40 06/25/22 08:00 8 06/25/22 08:00 06/25/22 03:43 10.0 Laboratory Results Short CBC 06/25/22 Range/Units 05:20 WBC 6.04 (4.8-10.8) K/ul Hgb 8.3 L (14.0-18.0) g/dl Hct 26.8 L (40.1-51.0) % Plt Count 235 (130-400) K/uL BMP 06/25/22 05:20 Sodium 134 L Potassium 4.3 Chloride 92 L Carbon Dioxide 35 H BUN 33 H Creatinine 1.30 Glucose 98 Calcium 9.[address] 06/25/22 07:45 CT SCAN OF THE CHEST WITHOUT IV CONTRAST CLINICAL HISTORY: Hypoxia. Congestive heart failure. COMPARISON STUDY: Chest x-ray dated 06/24/2022. A chest CT dated 11/20/2019. TECHNIQUE: CT scan of the thorax was performed from the thoracic inlet to the upper abdomen. Images are reviewed in the axial, sagittal, and coronal planes. IV contrast was not administered for this examination as per the referring clinician. A dose lowering technique was utilized adhering to the principles of ALARA. The examination is compromised by motion artifact, as well as by streak artifact from the arms which could not be elevated above the chest. CT DOSE: 1076.19 mGy.cm FINDINGS: Thyroid: Mildly enlarged and heterogeneous. Thoracic aorta: The thoracic aorta is normal in caliber and demonstrates standard 3-vessel arch anatomy. Heart: A cardiac AICD is present in the left chest wall. The heart is enlarged noting trace pericardial effusion. The coronary arteries are densely calcified. Lungs and pleural spaces: Again seen are changes of chronic interstitial lung disease. There is diffuse subpleural reticulation. Traction bronchiectasis is noted in the lower lobes. No honeycombing is seen. Intralobular septal thicke nohemi is seen throughout both lungs. There is diffuse airspace consolidation throughout both lungs, with mild spurring at the apices. There are small pleural effusions, right larger than left with associated atelectasis. The trachea and central airways are clear. There is no pneumothorax. Mediastinum: There are numerous mildly enlarged mediastinal lymph nodes which measure up to 14 mm short axis. Several containing calcifications. Violette: There are calcified right hilar lymph nodes. Note that the violette are not well assessed without IV contrast. Axillae: There is no axillary lymphadenopathy. Upper abdomen: Calcified granulomas are noted in the liver and spleen. Partially visualized upper abdominal viscera is within normal limits. Skeletal structures: The skeletal structures are osteopenic. Degenerative change is noted in the shoulders and thoracic spine. No lytic or blastic bony lesions are seen. Soft tissues: Gynecomastia is noted. IMPRESSION: 1. Streak and motion compromised examination. 2. Cardiomegaly an AICD with evidence of congestive failure. 3. Diffuse airspace consolidation throughout both lungs likely represents pulmonary edema. This could also be seen with multifocal pneumonia and/or ARDS. Clinical correlation will be essential. 4. Right larger than left pleural effusions. 5. Again seen are changes of chronic interstitial lung disease. This cannot be compared to previous due to extensive superimposed airspace consolidation. 6. Mediastinal lymphadenopathy is increased from previous. This is likely reactive. 7. Calcified mediastinal and hilar lymph nodes are unchanged. ACT 112: Negative or not required by law. Electronically signed by: Be Domínguez M.D. 06/25/2022 10:07 AM Medications Administered Current Inpatient Medications Acetaminophen (Acetaminophen 325 Mg Tab) 650 mg PO Q4H PRN PRN Reason: Pain or Fever Stop: 07/21/22 21:34 Last Admin: 06/21/22 22:00 Dose: 650 mg Albuterol (Albuterol Hfa 8 Gm Inhaler) 2 puffs INH Q4 PRN PRN Reason: Wheezing Stop: 07/21/22 20:25 Last Admin: 06/24/22 13:41 Dose: 2 puffs Allopurinol (Allopurinol 100 Mg Tab) 100 mg PO QAM [facility] Stop: 07/22/22 08:59 Last Admin: 06/25/22 10:23 Dose: 100 mg Atorvastatin Calcium (Atorvastatin 40 Mg Tab) 40 mg PO HS [facility] Stop: 07/21/22 20:59 Last Admin: 06/24/22 20:15 Dose: 40 mg Benzonatate (Benzonatate 100 Mg Capsule) 200 mg PO TID PRN PRN Reason: Cough Stop: 07/21/22 20:25 Cetirizine HCl (Cetirizine Hcl 10 Mg Tablet) 5 mg PO QAM [facility] Stop: 07/22/22 08:59 Last Admin: 06/25/22 10:23 Dose: 5 mg Cyanocobalamin (Cyanocobalamin (B-12) 100 Mcg Tablet) 100 mcg PO DAILY [facility] Stop: 07/22/22 08:59 Last Admin: 06/25/22 10:24 Dose: 100 mcg Digoxin (Digoxin 0.125 Mg Tab) 0.125 mg PO DAILY@1600 [facility] Stop: 07/23/22 15:59 Last Admin: 06/24/22 16:41 Dose: 0.125 mg Doxycycline Hyclate (Doxycycline Hyclate 100 Mg Cap) 100 mg PO BID [facility] Stop: 06/29/22 20:59 Last Admin: 06/25/22 10:24 Dose: 100 mg Folic Acid (Folic Acid 1 Mg Tab) 1 mg PO QDL [facility] Stop: 07/22/22 11:29 Last Admin: 06/24/22 12:23 Dose: 1 mg Furosemide (Furosemide Inj 20 Mg/2 Ml Vial) 40 mg IV 0800,1200,1700 [facility] Stop: 07/24/22 16:59 Last Admin: 06/25/22 08:18 Dose: 40 mg Ceftriaxone Sodium 2,000 mg/ (Dextrose) 70 mls @ 100 mls/hr IV DAILY [facility]; Protocol Stop: 06/29/22 16:29 Last Infusion: 06/25/22 11:19 Dose: Infused Magnesium Oxide (Magnesium Oxide 400 Mg Tab) 400 mg PO QAM [facility] Stop: 07/22/22 08:59 Last Admin: 06/25/22 10:25 Dose: 400 mg Metoprolol Succinate (Metoprolol Succ 50mg Ext Rel Tab) 50 mg PO BID [facility] Stop: 07/21/22 20:59 Last Admin: 06/25/22 10:25 Dose: 50 mg Ondansetron HCl (Ondansetron Inj 2 Mg/Ml 2 Ml Vial) 4 mg IV Q6H PRN PRN Reason: Nausea Stop: 07/21/22 21:34 Pantoprazole Sodium (Pantoprazole 40 Mg Tab) 40 mg PO DAILY [facility] Stop: 07/22/22 08:59 Last Admin: 06/25/22 10:25 Dose: 40 mg Polyethylene Glycol (Polyethylene (Miralax) 17 Gm Pack) 17 gm PO DAILY PRN PRN Reason: Constipation Stop: 07/21/22 21:34 Last Admin: 06/24/22 12:59 Dose: 17 gm Rivaroxaban (Rivaroxaban 15 Mg Tab) 15 mg PO HS [facility] Stop: 07/21/22 20:59 Last Admin: 06/24/22 20:15 Dose: 15 mg Umeclidinium Hiko (Umeclidinium Hiko 62.5mcg/Blister 7 Puffs/Inhaler) 1 puffs INH DAILY [facility] Stop: 07/25/22 10:59 Vitamin D (Cholecalciferol 1,000 Units 25 Mcg Tab) 2,000 units PO QDL [facility] Stop: 07/22/22 11:29 Last Admin: 06/24/22 12:23 Dose: 2,000 units (1) Anemia Anemia type: unspecified type Qualified Code(s): D64.9 - Anemia, unspecified
[2022-06-25 12:18] LABS: Influenza A virus by PCR Negative (Negative); Influenza B virus by PCR Negative (Negative)
[2022-06-25] MEDS: UMECLIDINIUM BROMIDE 62.5MCG/BLISTER 7 PUFFS/INHALER INH SCH (13:19)
--- NOTE | 2022-06-25 13:24 | Cardiology Progress Note ---
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 Issues addressed are as follows 1. Acute on chronic systolic heart failure. Chest x-ray does reflect mild increase in edema. This is superimposed on chronic possibly worsening interstitial lung disease. Suspect part of patient's hypoxia reflects underlying lung disease 2. Paroxysmal atrial fibrillation with new onset recent. Rates are controlled and patient anticoagulated chronically. Would continue metoprolol. Echocardiogram with mild left atrial dilatation as well as right atrial dilatation. Suspect patient will remain in atrial fibrillation. Rates controlled. We will add low-dose digoxin 3. Chronic interstitial lung disease/squamous cell carcinoma of the lung contributing to hypoxia. Patient on chemotherapy and should be followed closely for worsening process, superimposed infection 4. CKD stage III we will continue to follow renal function while on IV diuretics 06/24/2022. Patient slowly improving although significant diuresis not noted by weight and I's and O's Will repeat chest x-ray Give additional digoxin 0.25 mg p.o. today continue on daily dose of 0.125 mg/day for further heart rate control. Do not expect patient to return to sinus rhythm and atrial fibrillation likely due to remain persistent Hemoglobin trending down slowly. Would consider transfusion with transient increase in diuretic dosing surrounding transfusion Will require higher dose of furosemide on discharge Admission and Anticipated Discharge Date Admission Date: June 21, 2022 Results & Data ([facility]) Vital Signs (Past 12 Hours) Vital Signs Temp Pulse Pulse Pulse Resp BP BP 06/25/22 10:55 74 37 H 06/25/22 08:00 06/25/22 11:44 36.5 C 80 24 103/69 06/25/22 08:00 36.8 C 80 16 99/52 L 06/25/22 03:43 36.5 C 80 18 94/66 L Pulse Ox O2 Del Method O2 Flow Rate FiO2 06/25/22 10:55 95 40 06/25/22 08:00 Oxymask 8 06/25/22 11:44 95 BiPAP 40 06/25/22 08:00 96 06/25/22 03:43 94 Oxymask 10.0 (1) Squamous cell carcinoma lung Laterality: unspecified laterality Qualified Code(s): C34.90 - Malignant neoplasm of unspecified part of unspecified bronchus or lung
[2022-06-25] MEDS: DIGOXIN 0.125 MG TAB PO SCH (16:24)
[2022-06-25] MEDS: ATORVASTATIN 40 MG TAB PO SCH (20:19)
[2022-06-25] MEDS: RIVAROXABAN 15 MG TAB PO SCH (20:19)
[2022-06-26 06:13] LABS: Hematocrit (blood only) 28.7 % (40.1-51.0); Hemoglobin 8.9 g/dl (14.0-18.0); Mean Corpuscular Hemoglobin 30.6 pg (25.0-34.0); Mean Corpuscular Volume 98.6 fL (80.0-100.0); Mean Platelet Volume 10.1 fL (9.4-12.4); Nucleated RBC # (auto) 0.22 K/uL (0-0); Nucleated RBC % (auto) 2.7 %; Platelet Count 217 K/uL (130-400); RDW Coefficient of Variation 20.4 % (11.5-14.5); RDW Standard Deviation 70.9 fL (36.4-46.3); Red Blood Count 2.91 M/uL (4.63-6.08); White Blood Count 8.12 K/ul (4.8-10.8)
[2022-06-26 06:41] LABS: Calcium 9.2 mg/dl (8.5-10.1); Creatinine Clr Calc Pharmacy 61.9 ml/min; Est GFR (African American) 62.2 ml/min; Est GFR (Non-African American) 53.6 ml/min; Magnesium 1.6 mg/dl (1.7-2.4); Potassium 4.2 mmol/L (3.5-5.1)
[2022-06-26] MEDS: FUROSEMIDE INJ 20 MG/2 ML VIAL IV SCH ×3 (08:43→17:48)
[2022-06-26] MEDS: UMECLIDINIUM BROMIDE 62.5MCG/BLISTER 7 PUFFS/INHALER INH SCH (08:46)
[2022-06-26] MEDS: METOPROLOL SUCC 50MG EXT REL TAB PO SCH ×2 (08:49→21:39)
[2022-06-26] MEDS: CETIRIZINE HCL 10 MG TABLET PO SCH (08:49)
[2022-06-26] MEDS: PANTOprazole 40 MG TAB PO SCH (08:49)
[2022-06-26] MEDS: CYANOCOBALAMIN (B-12) 100 MCG TABLET PO SCH (08:49)
[2022-06-26] MEDS: allopurinoL 100 MG TAB PO SCH (08:49)
[2022-06-26] MEDS: DOXYCYCLINE HYCLATE 100 MG CAP PO SCH ×2 (08:50→21:38)
[2022-06-26] MEDS: cefTRIAXone SODIUM 2,000 MG in DEXTROSE 5% 50 ML IV SCH (09:03)
--- NOTE | 2022-06-26 09:47 | Pulmonology Progress Note ---
Date of Service June 26, 2022 Assessment & Plan (1) Acute on chronic respiratory failure with hypoxia: (2) Acute decompensated heart failure: (3) Squamous cell carcinoma lung: Laterality: unspecified laterality Qualified Code(s): C34.90 - Malignant neoplasm of unspecified part of unspecified bronchus or lung (4) ILD (interstitial lung disease): Plan CT chest 06/25/2022 personally reviewed: Diffuse alveolar opacities appreciated bilaterally Small bilateral pleural effusion, little more on the right side Elevated right hemidiaphragm Cardiomegaly Calcified mediastinal hilar lymph nodes --Acute on chronic hypoxic respiratory failure Multifactorial I do think major part is most likely from systolic CHF Patient also has underlying ILD not on any treatment right now For the time being I would recommend continuing with diuresis Would recommend the patient to be on BiPAP COVID 19 PCR negative Influenza A/B negative Nasal MRSA negative BNP 489 Procalcitonin 0.45--> 0.75 The bilateral alveolar opacities could represent pulmonary edema as well as infection, the way it looks on the CAT scan pulmonary edema would be high in differential. Patient is already on antibiotic --COPD Not on any inhalers right now I will start the patient on Incruse to be used on a daily basis -- Metastatic squamous cell carcinoma Patient also has recently been diagnosed with squamous cell carcinoma and going current chemotherapy last chemotherapy was 06/17/2022 The CAT scan changes could also be worsening of his underlying cancer and/or pneumonitis from chemotherapy but pulmonary edema still higher in differential -- ILD Not on any treatment at home I doubt this is exacerbation of underlying allergy but he cannot be ruled out 100% Plan: Chest x-ray from today shows improvement in the opacities compared to 06/24/2022 This does make me feel that underlying CHF/pulmonary edema playing a major part in patient's hypoxia on top of underlying ILD as well as recent diagnosis of lung cancer Continue with diuresis to keep the patient negative balance BiPAP nightly and as needed shortness of breath Please note the above document was generated using voice recognition software. It may contain grammatical, syntax or spelling errors.Any formal questions or concerns about the content, text or information contained within the body of th is dictation should be directly addressed to the provider for clarification. Admission and Anticipated Discharge Date Admission Date: June 21, 2022 Subjective Patient seen and family bedside. No acute distress, no adverse events overnight He did use BiPAP overnight Patient's was also in the room at the time of interrogation He says he is feeling better. He was saturating 99% on 10 L OxiMax. I was gradually able to titrate down to 4 L and he was still saturating 92% at the end of the examination Denies any chest pain No nausea vomiting Fair appetite Review of Systems Review of Systems: All systems reviewed & are unremarkable except as noted in Subjective Physical Exam Physical Exam: Constitutional: No acute distress HEENT: EOMI, PERRLA Respiratory system: Decreased air entry bilaterally, no wheeze, rhonchi, positive crackles bilaterally (Velcro-like as well lower lobes) CVS: S1-S2 positive, no murmurs or gallops Abdomen: Soft, nontender, nondistended, positive bowel sounds x4, obese Extremities: +2 pulses bilaterally radialis/ dorsalis pedis, no cyanosis, no edema Neuro: Awake alert oriented x3 Psych: Normal mood and affect G/U: Positive Burr Skin: no rashes, warm and dry Lymphatic: no cervical or axillary lymphadenopathy Results & Data Results & Data ([facility]) Vital Signs (Past 12 Hours) Vital Signs Temp Pulse Pulse Resp BP BP Pulse Ox 06/26/22 08:00 36.5 C 89 22 115/72 97 06/26/22 03:40 97 H 25 H 94 06/26/22 03:01 36.4 C L 81 24 106/68 92 06/25/22 23:29 36.5 C 86 22 103/70 93 O2 Del Method O2 Flow Rate FiO2 06/26/22 08:00 06/26/22 03:40 40 06/26/22 03:01 Oxymask 10 06/25/22 23:29 Oxymask 10 Laboratory Results 06/26/22 05:51 06/26/22 05:51 PG Care Time/CCT Total # of Minutes Spent Total Time Spent with Patient: Total time spent is greater than 50% in coordination of care (as documented) at patient's floor/unit and/or counseling patient: Coding Level of Care Code 48334 Subseq Hosp Care Lvl 2 Diagnoses Acute on chronic respiratory failure with hypoxia J96.21 Acute decompensated heart failure I50.9 Squamous cell carcinoma lung C34.90 Laterality: unspecified laterality ILD (interstitial lung disease) J84.9
--- NOTE | 2022-06-26 09:50 | XRay Report ---
XR chest 1V portable CLINICAL HISTORY: f/u COMPARISON STUDY: Chest radiograph June 24, 2022. Chest CT June 25, 2022. FINDINGS: Left subclavian pacer/AICD is in place. Cardiomediastinal silhouette is stable. There is no pneumothorax. Interstitial thickening in multifocal airspace opacities within the lungs slightly imp roved. Small right and trace left pleural effusions are present. IMPRESSION: 1. Interstitial thickening and multifocal airspace opacities, minimally improved since prior exam. Th e findings could reflect pulmonary edema, pneumonia or ARDS. 2. Small right and trace left pleural effusions. No pneumothorax. ACT 112: Negative or not required by law. Electronically signed by: Ramiro Ponce M.D. 06/26/2022 9:48 AM
--- NOTE | 2022-06-26 11:50 | Hospitalist Progress Note ---
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 Hospital course 06/21- presented to ED with oxygen saturation in 70s, required 6L oxymask on admission. Baseline of 2 L NC. Started on iv lasix 20 mg 06/22- Echo with EF 35-40%. Seen by cardio- continued on iv lasix bid. Started on Empiric Ceftriaxone/doxy for persistent leucocytosis and immunocompromised state. 06/23- Still on 5 L NC. Iv lasix increased to 20 mg tid 06/24- Worsening hypoxia to 10 L oxymask. CXR with worsening CHF. IV lasix increased to 40 q8hr 06/25- CT with pulm edema > PNA. Seen by pulm. started on BIPAP, continue iv lasix 06/26- CXR shows improvement but still on oxymask 10 L CXR 06/21- 1. Cardiomegaly and AICD with evidence of congestive failure and pulmonary edema. CXR 06/24- Cardiomegaly with progressive mixed interstitial and alveolar opacities. Findings are suggestive of pulmonary edema superimposed on chronic fibrosis. CT chest 06/25 1. Streak and motion compromised examination. 2. Cardiomegaly an AICD with evidence of congestive failure. 3. Diffuse airspace consolidation throughout both lungs likely represents pulmonary edema. This could also be seen with multifocal pneumonia and/or ARDS. Clinical correlation will be essential. 4. Right larger than left pleural effusions. 5. Again seen are changes of chronic interstitial lung disease. This cannot be compared to previous due to extensive superimposed airspace consolidation. 6. Mediastinal lymphadenopathy is increased from previous. This is likely reactive. 7. Calcified mediastinal and hilar lymph nodes are unchanged. CXR 06/26- 1. Interstitial thickening and multifocal airspace opacities, minimally improved since prior exam. The findings could reflect pulmonary edema, pneumonia or ARDS. Acute on chronic respiratory failure with hypoxia- likely multifactorial with his CHF, ILD, lung cancer - CXR and CT chest reviewed as above - Cardio and pulm following- continue iv lasix, BIPAP and antibiotics - had good diuresis with increased dose of lasix and CXR improved, but still with significant oxygen requirement. Labs stable - continue lasix, monitor I and Os and daily weight for further management - Already on ABx since admission- plan for 7 day course - Continue bipap and supplemental oxygen wean off as tolerated Acute on chronic systolic heart failure - Echo with EF 35-40% - Continue iv lasix- monitor I and Os, daily weight Squamous cell carcinoma lung - Follows with Dr. Petersen of [facility] onc and was seen in follow up earlier today. Chemo regimen includes gemcitabine and the carboplatin chemotherapy which was started in December 2021 - Last received chemo 06/17/22 Anemia - Recent admissions with severe anemia requiring prbc transfusions - Receiving Aranesp for chronic anemia every 3 weeks - Hgb stable >8. 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 CT chest reviewed as above CKD (chronic kidney disease), stage III - Cr at baseline ~1.51, currently improved to 1.3. Continue to monitor with daily BMP CAD (coronary artery disease) - Stable. Continue statin, Toprol H/o DVT/PE in 2016- Continue Xarelto Paroxysmal atrial fibrillation- Continue Toprol, xarelto. Digoxin added by cardio COPD- started on incruse ellipta per pulm Hypomagnesemia- repleted. DVT ppx: Xarelto Dispo: PCU on tele. continue iv diuresis, bipap, continue to wean down oxygen as tolerated. will need 2 step O2 eval at discharge. Admission and Anticipated Discharge Date Admission Date: June 21, 2022 Subjective Feels so so. States he gets dyspneic with minimal exertion. Minimal cough. No fever, chills, N/V, CP. States he would like to go home and he disagrees with us that he is not ready to go home yet. Physical Exam Physical Exam: General: Lying comfortably in bed, not in distress, on oxymask Chest: Fair breath sounds bilaterally with basilar rales. Not using accessory muscles CVS: Irregular, normal heart sounds, no murmur Abdomen: Soft, non tender, not distended, normal bowel sounds Neuro: Awake, alert, oriented, conversing well, non focal Extremities: trace edema Results & Data Results & Data ([facility]) Vital Signs (Past 12 Hours) Vital Signs Temp Pulse Pulse Resp BP BP Pulse Ox 06/26/22 08:00 77 06/26/22 08:00 36.5 C 89 22 115/72 97 06/26/22 03:40 97 H 25 H 94 06/26/22 03:01 36.4 C L 81 24 106/68 92 O2 Del Method O2 Flow Rate FiO2 06/26/22 08:00 06/26/22 08:00 06/26/22 03:40 40 06/26/22 03:01 Oxymask 10 Laboratory Results Short CBC 06/26/22 Range/Units 05:51 WBC 8.12 (4.8-10.8) K/ul Hgb 8.9 L (14.0-18.0) g/dl Hct 28.7 L (40.1-51.0) % Plt Count 217 (130-400) K/uL BMP 06/26/22 05:51 Sodium 134 L Potassium 4.2 Chloride 89 L Carbon Dioxide 38 H BUN 34 H Creatinine 1.31 Glucose 98 Calcium 9.2 Diagnostic Findings Chest X-Ray 06/26/22 08:50 XR chest 1V portable CLINICAL HISTORY: f/u COMPARISON STUDY: Chest radiograph June 24, 2022. Chest CT June 25, 2022. FINDINGS: Left subclavian pacer/AICD is in place. Cardiomediastinal silhouette is stable. There is no pneumothorax. Interstitial thickening in multifocal airspace opacities within the lungs slightly improved. Small right and trace left pleural effusions are present. IMPRESSION: 1. Interstitial thickening and multifocal airspace opacities, minimally improved since prior exam. The findings could reflect pulmonary edema, pneumonia or ARDS. 2. Small right and trace left pleural effusions. No pneumothorax. ACT 112: Negative or not required by law. Electronically signed by: Ramiro Ponce M.D. 06/26/2022 9:48 AM Medications Administered Current Inpatient Medications Acetaminophen (Acetaminophen 325 Mg Tab) 650 mg PO Q4H PRN PRN Reason: Pain or Fever Stop: 07/21/22 21:34 Last Admin: 06/21/22 22:00 Dose: 650 mg Albuterol (Albuterol Hfa 8 Gm Inhaler) 2 puffs INH Q4 PRN PRN Reason: Wheezing Stop: 07/21/22 20:25 Last Admin: 06/24/22 13:41 Dose: 2 puffs Allopurinol (Allopurinol 100 Mg Tab) 100 mg PO QAM [facility] Stop: 07/22/22 08:59 Last Admin: 06/26/22 08:49 Dose: 100 mg Atorvastatin Calcium (Atorvastatin 40 Mg Tab) 40 mg PO HS [facility] Stop: 07/21/22 20:59 Last Admin: 06/25/22 20:19 Dose: 40 mg Benzonatate (Benzonatate 100 Mg Capsule) 200 mg PO TID PRN PRN Reason: Cough Stop: 07/21/22 20:25 Cetirizine HCl (Cetirizine Hcl 10 Mg Tablet) 5 mg PO QAM [facility] Stop: 07/22/22 08:59 Last Admin: 06/26/22 08:49 Dose: 5 mg Cyanocobalamin (Cyanocobalamin (B-12) 100 Mcg Tablet) 100 mcg PO DAILY [facility] Stop: 07/22/22 08:59 Last Admin: 06/26/22 08:49 Dose: 100 mcg Digoxin (Digoxin 0.125 Mg Tab) 0.125 mg PO DAILY@1600 [facility] Stop: 07/23/22 15:59 Last Admin: 06/25/22 16:24 Dose: 0.125 mg Doxycycline Hyclate (Doxycycline Hyclate 100 Mg Cap) 100 mg PO BID [facility] Stop: 06/29/22 20:59 Last Admin: 06/26/22 08:50 Dose: 100 mg Folic Acid (Folic Acid 1 Mg Tab) 1 mg PO QDL [facility] Stop: 07/22/22 11:29 Last Admin: 06/25/22 11:40 Dose: 1 mg Furosemide (Furosemide Inj 20 Mg/2 Ml Vial) 40 mg IV 0800,1200,1700 [facility] Stop: 07/24/22 16:59 Last Admin: 06/26/22 08:43 Dose: 40 mg Ceftriaxone Sodium 2,000 mg/ (Dextrose) 70 mls @ 100 mls/hr IV DAILY [facility]; Protocol Stop: 06/29/22 16:29 Last Infusion: 06/26/22 09:45 Dose: Infused Magnesium Oxide (Magnesium Oxide 400 Mg Tab) 400 mg PO BID@1100,2300 [facility] Stop: 07/26/22 10:59 Metoprolol Succinate (Metoprolol Succ 50mg Ext Rel Tab) 50 mg PO BID [facility] Stop: 07/21/22 20:59 Last Admin: 06/26/22 08:49 Dose: 50 mg Ondansetron HCl (Ondansetron Inj 2 Mg/Ml 2 Ml Vial) 4 mg IV Q6H PRN PRN Reason: Nausea Stop: 07/21/22 21:34 Pantoprazole Sodium (Pantoprazole 40 Mg Tab) 40 mg PO DAILY [facility] Stop: 07/22/22 08:59 Last Admin: 06/26/22 08:49 Dose: 40 mg Polyethylene Glycol (Polyethylene (Miralax) 17 Gm Pack) 17 gm PO DAILY PRN PRN Reason: Constipation Stop: 07/21/22 21:34 Last Admin: 06/24/22 12:59 Dose: 17 gm Rivaroxaban (Rivaroxaban 15 Mg Tab) 15 mg PO HS [facility] Stop: 07/21/22 20:59 Last Admin: 06/25/22 20:19 Dose: 15 mg Umeclidinium [place] (Umeclidinium [place] 62.5mcg/Blister 7 Puffs/Inhaler) 1 puffs INH DAILY [facility] Stop: 07/25/22 10:59 Last Admin: 06/26/22 08:46 Dose: 1 puffs Vitamin D (Cholecalciferol 1,000 Units 25 Mcg Tab) 2,000 units PO QDL [facility] Stop: 07/22/22 11:29 Last Admin: 06/25/22 11:40 Dose: 2,000 units (1) Anemia Anemia type: unspecified type Qualified Code(s): D64.9 - Anemia, unspecified
[2022-06-26] MEDS: MAGNESIUM OXIDE 400 MG TAB PO SCH ×2 (12:13→23:59)
[2022-06-26] MEDS: FOLIC ACID 1 MG TAB PO SCH (12:14)
[2022-06-26] MEDS: CHOLECALCIFEROL 1,000 UNITS 25 MCG TAB PO SCH (12:14)
[2022-06-26] MEDS: DIGOXIN 0.125 MG TAB PO SCH (16:59)
[2022-06-26] MEDS ORDERED: FUROSEMIDE INJ 20 MG/2 ML VIAL IV SCH (17:15)
[2022-06-26] MEDS: ATORVASTATIN 40 MG TAB PO SCH (21:38)
[2022-06-26] MEDS: RIVAROXABAN 15 MG TAB PO SCH (21:39)
[2022-06-27 06:04] LABS: Hematocrit (blood only) 28.2 % (40.1-51.0); Hemoglobin 8.9 g/dl (14.0-18.0)
[2022-06-27 06:54] LABS: BUN Creatinine Ratio 27.1 (10-20); Calcium 9.3 mg/dl (8.5-10.1); Creatinine Clr Calc Pharmacy 63.4 ml/min; Est GFR (African American) 63.3 ml/min; Est GFR (Non-African American) 54.6 ml/min; Magnesium 1.5 mg/dl (1.7-2.4); Potassium 4.2 mmol/L (3.5-5.1)
[2022-06-27] MEDS: MAGNESIUM SULFATE / D5W 1 GM/100 ML BAG IV SCH ×2 (07:52→10:12)
[2022-06-27] MEDS: MAGNESIUM OXIDE 400 MG TAB PO SCH (09:30)
[2022-06-27] MEDS: FUROSEMIDE INJ 20 MG/2 ML VIAL IV SCH ×2 (09:30→17:22)
[2022-06-27] MEDS: CETIRIZINE HCL 10 MG TABLET PO SCH (10:23)
[2022-06-27] MEDS: CYANOCOBALAMIN (B-12) 100 MCG TABLET PO SCH (10:24)
[2022-06-27] MEDS: CHOLECALCIFEROL 1,000 UNITS 25 MCG TAB PO SCH (10:24)
[2022-06-27] MEDS: METOPROLOL SUCC 50MG EXT REL TAB PO SCH ×2 (10:25→20:53)
[2022-06-27] MEDS: FOLIC ACID 1 MG TAB PO SCH (10:30)
[2022-06-27] MEDS: DOXYCYCLINE HYCLATE 100 MG CAP PO SCH ×2 (10:30→20:53)
[2022-06-27] MEDS: allopurinoL 100 MG TAB PO SCH (10:31)
[2022-06-27] MEDS: cefTRIAXone SODIUM 2,000 MG in DEXTROSE 5% 50 ML IV SCH (10:31)
[2022-06-27] MEDS: PANTOprazole 40 MG TAB PO SCH (10:31)
[2022-06-27] MEDS: UMECLIDINIUM BROMIDE 62.5MCG/BLISTER 7 PUFFS/INHALER INH SCH (10:32)
--- NOTE | 2022-06-27 11:47 | Cardiology Progress Note ---
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 Issues addressed are as follows 1. Acute on chronic systolic heart failure. Chest x-ray does reflect mild increase in edema. This is superimposed on chronic possibly worsening interstitial lung disease. Suspect part of patient's hypoxia reflects underlying lung disease 2. Paroxysmal atrial fibrillation with new onset recent. Rates are controlled and patient anticoagulated chronically. Would continue metoprolol. Echocardiogram with mild left atrial dilatation as well as right atrial dilatation. Suspect patient will remain in atrial fibrillation. Rates controlled. We will add low-dose digoxin 3. Chronic interstitial lung disease/squamous cell carcinoma of the lung contributing to hypoxia. Patient on chemotherapy and should be followed closely for worsening process, superimposed infection 4. CKD stage III we will continue to follow renal function while on IV diuretics Recommend: Continue current doses of Xarelto, digoxin and metoprolol Renal function has improved with now 3.6 L negative Admission and Anticipated Discharge Date Admission Date: June 21, 2022 Subjective Patient seen and examined. Chart reviewed. Telemetry reviewed. States he currently feels well with breathing almost back to baseline. Denies chest pain, palpitations or lightheadedness. Review of Systems Review of Systems: All systems reviewed & are unremarkable except as noted in HPI & below Physical Exam Physical Exam: General: Awake, alert and oriented x 3. No acute distress. HEENT: Normocephalic, atraumatic. Pupils equal, round and reactive to light and accommodation. Extraocular muscles are intact. Anicteric sclera. Moist mucous membranes. Neck: No JVD. No bruit. Cardiovascular: irregularly irregular, unable to appreciate murmur, rub or gallop. Pulmonary: Coarse breath sounds diffusely Abdomen: Bowel sounds x 4, soft. No rebound, guarding or tenderness. No organomegaly. Extremities: No clubbing, cyanosis or edema. +2 pedal pulses bilaterally. Skin: Warm and dry. Results & Data ([facility]) Vital Signs (Past 12 Hours) Vital Signs Temp Pulse Pulse Pulse Resp BP Pulse Ox 06/27/22 10:52 36.9 C 92 H 20 98/69 L 95 06/27/22 09:24 06/27/22 09:24 06/27/22 07:41 36.7 C 67 20 107/74 95 06/27/22 06:34 36.5 C 71 14 98/65 L 90 06/27/22 03:02 33 H 97 06/27/22 00:10 94 H 06/27/22 00:07 36.5 C 71 14 98/65 L 90 Pulse Ox O2 Del Method O2 Del Method O2 Flow Rate O2 Flow Rate FiO2 06/27/22 10:52 Oxymask 6 06/27/22 09:24 Oxymask 06/27/22 09:24 95 Oxymask 6 06/27/22 07:41 Oxymask 6 06/27/22 06:34 06/27/22 03:02 40 06/27/22 00:10 06/27/22 00:07 Oxymask 6 (1) Squamous cell carcinoma lung Laterality: unspecified laterality Qualified Code(s): C34.90 - Malignant neoplasm of unspecified part of unspecified bronchus or lung
--- NOTE | 2022-06-27 11:50 | Pulmonology Progress Note ---
Date of Service June 27, 2022 Assessment & Plan (1) Acute on chronic respiratory failure with hypoxia: (2) Acute decompensated heart failure: (3) Squamous cell carcinoma lung: Laterality: unspecified laterality Qualified Code(s): C34.90 - Malignant neoplasm of unspecified part of unspecified bronchus or lung (4) ILD (interstitial lung disease): Plan Impression: 71-year-old male with a history of interstitial lung disease had a CT of the chest without contrast performed November 2001 showing interstitial lung disease with multistation bulky adenopathy. Patient underwent endobronchial ultrasound with [facility] pulmonologists December 2021. Lymph node biopsies of station 4R, 10 R, and 7 were consistent with non-small cell carcinoma and right middle lobe transbronchial biopsy showed moderately differentiated squamous cell carcinoma. Imaging also showed hepatic lesions con cerning for metastatic disease although it does not appear these were biopsied. [facility]. PD-L1 was less than 1%. He was initiated on gemcitabine carboplatin and which she was poorly tolerant of due to cytopenias and was changed to every 3-week chemotherapy. He was admitted to the hospital with progressive shortness of breath and felt to be due to decompensated heart failure. Pulmonary consultation was obtained due to progressive hypoxemia. Recommendations: 1. Acute on chronic hypoxemic/hypercarbic respiratory failure with diffuse pulmonary infiltrates: Differential as noted above. The patient's been empirically diuresed. In discussion with the patient's family at bedside, it appears that he has been declining for several weeks/months. As the differential is unclear, recommended that we proceed to fiberoptic bronchoscopy with bronchial velar lavage and potential transbronchial lung biopsies to guide therapy. We discussed continued medical therapy including diuresis, empiric steroids, and broad-spectrum antibiotics however given the patient's decline and therapy to this point I think additional information is required to help guide future therapies and help family with prognosis. Hold anticoagulation. N.p.o. after midnight. Patient was counseled regarding potential risks of bronchoscopy including respiratory failure requiring intubation mechanical ventilation, pneumothorax, and bleeding in the airways. He is agreeable to proceed. Russians were answered to the satisfaction of the patient and his at bedside 2. Metastatic squamous cell carcinoma the lung. We will see what cytology on bronchoscopy shows 3. Interstitial lung disease: Unclear outpatient work-up at this point time. Findings could represent organizing pneumonia or progression of interstitial lung disease. It does not appear that the patient has had much in the way of work-up and I would not recommend additional immunosuppression at this point time without a tissue diagnosis 4. COPD: Patient's not bronchospastic currently Admission and Anticipated Discharge Date Admission Date: June 21, 2022 Subjective Patient seen and examined. EMR reviewed. 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 Patient continues to complain of shortness of breath. He is able to perform minimal activity before becoming winded. He remains on higher flow oxygen. He is occasionally coughing but not producing any phlegm. No chest pain. No wheezing. Review of Systems Review of Systems: All systems reviewed & are unremarkable except as noted in Subjective Physical Exam Constitutional: WD/WN, vitals as above Neck: trachea midline, no thyromegaly Respiratory: normal respiratory effort, lungs clear to auscultation Cardiovascular: RRR, no murmur, no edema Gastrointestinal (Abdomen): normal bowel sounds, soft, nontender, no hepatosplenomegaly Musculoskeletal: Extremities: extremities normal to inspection Skin: no rashes, warm and dry Neurologic: Nonfocal exam Lymphatic: no cervical lymphadenopathy Results & Data Results & Data ([facility]) Vital Signs (Past 12 Hours) Vital Signs Temp Pulse Pulse Pulse Resp BP Pulse Ox 06/27/22 10:52 36.9 C 92 H 20 98/69 L 95 06/27/22 09:24 06/27/22 09:24 06/27/22 07:41 36.7 C 67 20 107/74 95 06/27/22 06:34 36.5 C 71 14 98/65 L 90 06/27/22 03:02 33 H 97 06/27/22 00:10 94 H 06/27/22 00:07 36.5 C 71 14 98/65 L 90 Pulse Ox O2 Del Method O2 Del Method O2 Flow Rate O2 Flow Rate FiO2 06/27/22 10:52 Oxymask 6 06/27/22 09:24 Oxymask 06/27/22 09:24 95 Oxymask 6 06/27/22 07:41 Oxymask 6 06/27/22 06:34 06/27/22 03:02 40 06/27/22 00:10 06/27/22 00:07 Oxymask 6 Laboratory Results 06/27/22 05:27 06/27/22 05:27 06/21/22 15:44 VBG pH 7.41 VBG pCO2 56 H VBG pO2 25 VBG HCO3 36 VBG O2 Saturation < 60.0 VBG Base Excess 8.9 Microbiology 06/24/22 23:48 Sputum, Expectorated Gram Stain - Final 06/24/22 23:48 Sputum, Expectorated Sputum Culture - Final Light normal terell. 06/21/22 15:45 Blood Aerobic Blood Culture - Final No growth in Aerobic bottle after 5 days. 06/21/22 15:45 Blood Anaerobic Blood Culture - Final No growth in Anaerobic bottle after 5 days. 06/21/22 15:45 Blood Aerobic Blood Culture - Final No growth in Aerobic bottle after 5 days. 06/21/22 15:45 Blood Anaerobic Blood Culture - Final COVID PCR negative Influenza negative BNP 489 Procalcitonin 0.5 increased to 0.75 Diagnostic Findings No new imaging PG Care Time/CCT Total # of Minutes Spent Total Time Spent with Patient: Total time spent is greater than 50% in coordination of care (as documented) at patient's floor/unit and/or counseling patient: Coding Level of Care Code 90610 Subseq Hosp Care Lvl 3 Diagnoses Acute on chronic respiratory failure with hypoxia J96.21 Acute decompensated heart failure I50.9 Squamous cell carcinoma lung C34.90 Laterality: unspecified laterality ILD (interstitial lung disease) J84.9
[2022-06-27] MEDS: DIGOXIN 0.125 MG TAB PO SCH (16:22)
--- NOTE | 2022-06-27 16:38 | Hospitalist Progress Note ---
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 Hospital course 06/21- presented to ED with oxygen saturation in 70s, required 6L oxymask on admission. Baseline of 2 L NC. Started on iv lasix 20 mg 06/22- Echo with EF 35-40%. Seen by cardio- continued on iv lasix bid. Started on Empiric Ceftriaxone/doxy for persistent leucocytosis and immunocompromised state. 06/23- Still on 5 L NC. Iv lasix increased to 20 mg tid 06/24- Worsening hypoxia to 10 L oxymask. CXR with worsening CHF. IV lasix increased to 40 q8hr 06/25- CT with pulm edema > PNA. Seen by pulm. started on BIPAP, continue iv lasix 06/26- CXR shows minimal improvement- iv lasix increased to 60 mg 06/27- Pulm plans for bronchoscopy, continue iv lasix 60 bid CXR 06/21- 1. Cardiomegaly and AICD with evidence of congestive failure and pulmonary edema. CXR 06/24- Cardiomegaly with progressive mixed interstitial and alveolar opacities. Findings are suggestive of pulmonary edema superimposed on chronic fibrosis. CT chest 06/25 1. Streak and motion compromised examination. 2. Cardiomegaly an AICD with evidence of congestive failure. 3. Diffuse airspace consolidation throughout both lungs likely represents pulmonary edema. This could also be seen with multifocal pneumonia and/or ARDS. Clinical correlation will be essential. 4. Right larger than left pleural effusions. 5. Again seen are changes of chronic interstitial lung disease. This cannot be compared to previous due to extensive superimposed airspace consolidation. 6. Mediastinal lymphadenopathy is increased from previous. This is likely reactive. 7. Calcified mediastinal and hilar lymph nodes are unchanged. CXR 06/26- 1. Interstitial thickening and multifocal airspace opacities, minimally improved since prior exam. The findings could reflect pulmonary edema, pneumonia or ARDS. Acute on chronic respiratory failure with hypoxia- likely multifactorial with his CHF, ILD, lung cancer - CXR and CT chest reviewed as above - Cardio and pulm following- continue iv lasix, BIPAP and antibiotics - having good diuresis with increased dose of lasix and CXR somewhat improved, but still with significant oxygen requirement. Labs stable - continue lasix, monitor I and Os and daily weight for further management - Already on ABx since admission- plan for 7 day course - Continue bipap and supplemental oxygen wean off as tolerated - Pulm plans for bronch tomorrow am- npo after midnight, holding xarelto for the same Acute on chronic systolic heart failure - Echo with EF 35-40% - Continue iv lasix 60 bid- monitor I and Os, daily weight - Cardio following Squamous cell carcinoma lung - Follows with Dr. Petersen of [facility] onc and was seen in follow up earlier today. Chemo regimen includes gemcitabine and the carboplatin chemotherapy which was started in December 2021 - Last received chemo 06/17/22 Anemia - Recent admissions with severe anemia requiring prbc transfusions - Receiving Aranesp for chronic anemia every 3 weeks - Hgb stable >8. 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 CT chest reviewed as above CKD (chronic kidney disease), stage III - Cr at baseline ~1.51, currently improved to 1.3. Continue to monitor with daily BMP CAD (coronary artery disease) - Stable. Continue statin, Toprol H/o DVT/PE in 2015- Continue Xarelto Paroxysmal atrial fibrillation- Continue Toprol, xarelto. Digoxin added by cardio COPD- started on incruse ellipta per pulm Hypomagnesemia- repleted. DVT ppx: Xarelto on hold for bronch tomorrow- resume afterwards Dispo: PCU on tele. Bronch tomorrow. continue iv diuresis, bipap, continue to wean down oxygen as tolerated. will need 2 step O2 eval at discharge. Code status: Discussed extensively at bedside in presence of family- he opts for full code status Admission and Anticipated Discharge Date Admission Date: June 21, 2022 Subjective He gets easily dyspneic with minimal exertion like changing positions. Denies any chest pain, fever, chills, N/V. States he feels good. States he is diuresing well. No new issues Physical Exam Physical Exam: General: Lying comfortably in bed, not in distress, on oxymask Chest: Fair breath sounds bilaterally with basilar rales. Not using accessory muscles CVS: Irregular, normal heart sounds, no murmur Abdomen: Soft, non tender, not distended, normal bowel sounds Neuro: Awake, alert, oriented, conversing well, non focal Extremities: trace edema Results & Data Results & Data ([facility]) Vital Signs (Past 12 Hours) Vital Signs Temp Pulse Pulse Resp BP Pulse Ox Pulse Ox 06/27/22 15:44 36.3 C L 73 20 113/72 95 06/27/22 13:33 93 06/27/22 10:52 36.9 C 92 H 20 98/69 L 95 06/27/22 09:24 06/27/22 09:24 06/27/22 07:41 36.7 C 67 20 107/74 95 06/27/22 06:34 36.5 C 71 14 98/65 L 90 Pulse Ox Pulse Ox Pulse Ox O2 Del Method O2 Del Method O2 Flow Rate O2 Flow Rate 06/27/22 15:44 Oxymask 6 06/27/22 13:33 95 82 L 6 06/27/22 10:52 Oxymask 6 06/27/22 09:24 Oxymask 06/27/22 09:24 95 Oxymask 06/27/22 07:41 Oxymask 6 06/27/22 06:34 O2 Flow Rate O2 Flow Rate O2 Flow Rate 06/27/22 15:44 06/27/22 13:33 6 6 06/27/22 10:52 06/27/22 09:24 06/27/22 09:24 6 06/27/22 07:41 06/27/22 06:34 Laboratory Results Short CBC 06/27/22 Range/Units 05:27 Hgb 8.9 L (14.0-18.0) g/dl Hct 28.2 L (40.1-51.0) % BMP 06/27/22 05:27 Sodium 137 Potassium 4.2 Chloride 90 L Carbon Dioxide 41 H* BUN 35 H Creatinine 1.29 Glucose 107 H Calcium 9.3 Medications Administered Current Inpatient Medications Acetaminophen (Acetaminophen 325 Mg Tab) 650 mg PO Q4H PRN PRN Reason: Pain or Fever Stop: 07/21/22 21:34 Last Admin: 06/21/22 22:00 Dose: 650 mg Albuterol (Albuterol Hfa 8 Gm Inhaler) 2 puffs INH Q4 PRN PRN Reason: Wheezing Stop: 07/21/22 20:25 Last Admin: 06/24/22 13:41 Dose: 2 puffs Allopurinol (Allopurinol 100 Mg Tab) 100 mg PO QAM [facility] Stop: 07/22/22 08:59 Last Admin: 06/27/22 10:31 Dose: 100 mg Atorvastatin Calcium (Atorvastatin 40 Mg Tab) 40 mg PO HS [facility] Stop: 07/21/22 20:59 Last Admin: 06/26/22 21:38 Dose: 40 mg Benzonatate (Benzonatate 100 Mg Capsule) 200 mg PO TID PRN PRN Reason: Cough Stop: 07/21/22 20:25 Cetirizine HCl (Cetirizine Hcl 10 Mg Tablet) 5 mg PO QAM [facility] Stop: 07/22/22 08:59 Last Admin: 06/27/22 10:23 Dose: 5 mg Cyanocobalamin (Cyanocobalamin (B-12) 100 Mcg Tablet) 100 mcg PO DAILY [facility] Stop: 07/22/22 08:59 Last Admin: 06/27/22 10:24 Dose: 100 mcg Digoxin (Digoxin 0.125 Mg Tab) 0.125 mg PO DAILY@1600 [facility] Stop: 07/23/22 15:59 Last Admin: 06/26/22 16:59 Dose: 0.125 mg Doxycycline Hyclate (Doxycycline Hyclate 100 Mg Cap) 100 mg PO BID [facility] Stop: 06/29/22 20:59 Last Admin: 06/27/22 10:30 Dose: 100 mg Folic Acid (Folic Acid 1 Mg Tab) 1 mg PO QDL [facility] Stop: 07/22/22 11:29 Last Admin: 06/27/22 10:30 Dose: 1 mg Furosemide (Furosemide Inj 20 Mg/2 Ml Vial) 60 mg IV BID17 [facility] Stop: 07/27/22 08:59 Last Admin: 06/27/22 09:30 Dose: 60 mg Ceftriaxone Sodium 2,000 mg/ (Dextrose) 70 mls @ 100 mls/hr IV DAILY [facility]; Protocol Stop: 06/29/22 16:29 Last Infusion: 06/27/22 11:13 Dose: Infused Magnesium Oxide (Magnesium Oxide 400 Mg Tab) 400 mg PO BID@1100,2300 AMBER Stop: 07/26/22 10:59 Last Admin: 06/27/22 09:30 Dose: 400 mg Metoprolol Succinate (Metoprolol Succ 50mg Ext Rel Tab) 50 mg PO BID AMBER Stop: 07/21/22 20:59 Last Admin: 06/27/22 10:25 Dose: 50 mg Ondansetron HCl (Ondansetron Inj 2 Mg/Ml 2 Ml Vial) 4 mg IV Q6H PRN PRN Reason: Nausea Stop: 07/21/22 21:34 Pantoprazole Sodium (Pantoprazole 40 Mg Tab) 40 mg PO DAILY [facility] Stop: 07/22/22 08:59 Last Admin: 06/27/22 10:31 Dose: 40 mg Polyethylene Glycol (Polyethylene (Miralax) 17 Gm Pack) 17 gm PO DAILY PRN PRN Reason: Constipation Stop: 07/21/22 21:34 Last Admin: 06/24/22 12:59 Dose: 17 gm Umeclidinium Shirley (Umeclidinium Shirley 62.5mcg/Blister 7 Puffs/Inhaler) 1 puffs INH DAILY [facility] Stop: 07/25/22 10:59 Last Admin: 06/27/22 10:32 Dose: 1 puffs Vitamin D (Cholecalciferol 1,000 Units 25 Mcg Tab) 2,000 units PO QDL [facility] Stop: 07/22/22 11:29 Last Admin: 06/27/22 10:24 Dose: 2,000 units (1) Anemia Anemia type: unspecified type Qualified Code(s): D64.9 - Anemia, unspecified
[2022-06-27] MEDS: ATORVASTATIN 40 MG TAB PO SCH (20:53)
[2022-06-28] MEDS: MAGNESIUM OXIDE 400 MG TAB PO SCH ×3 (00:33→23:25)
[2022-06-28 06:34] LABS: Hematocrit (blood only) 29.1 % (40.1-51.0); Hemoglobin 9.1 g/dl (14.0-18.0)
[2022-06-28 07:14] LABS: BUN Creatinine Ratio 25.8 (10-20); Calcium 9.4 mg/dl (8.5-10.1); Creatinine Clr Calc Pharmacy 56.3 ml/min; Est GFR (African American) 61.6 ml/min; Est GFR (Non-African American) 53.1 ml/min; Magnesium 1.9 mg/dl (1.7-2.4); Potassium 4.3 mmol/L (3.5-5.1)
[2022-06-28] MEDS ORDERED: fentaNYL citrate 100 MCG/2 ML VIAL ONE (08:00)
[2022-06-28] MEDS ORDERED: MIDAZOLAM HCL 5 MG/ML 1 ML VIAL ONE (08:00)
--- NOTE | 2022-06-28 08:29 | Pre Anesthesia Assessment ---
Date of Service June 28, 2022 Pre Sedation Assessment Vital Signs Temp Pulse Pulse Pulse Resp BP BP 06/28/22 08:17 78 18 120/61 06/28/22 08:10 36.5 C 88 18 98/77 L 06/28/22 07:27 36.8 C 89 117/76 06/28/22 03:58 36.7 C 80 18 106/72 06/27/22 23:07 36.6 C 81 18 112/68 06/28/22 00:13 73 06/27/22 21:39 06/27/22 21:39 06/27/22 19:05 36.5 C 76 22 105/65 06/27/22 16:22 73 06/27/22 15:44 36.3 C L 73 20 113/72 06/27/22 13:33 06/27/22 10:52 36.9 C 92 H 20 98/69 L 06/27/22 09:24 06/27/22 09:24 Pulse Ox Pulse Ox Pulse Ox Pulse Ox Pulse Ox O2 Del Method O2 Del Method 06/28/22 08:17 96 Oxymask 06/28/22 08:10 96 Oxymask 06/28/22 07:27 95 Nasal Cannula 06/28/22 03:58 96 Oxymask 06/27/22 23:07 93 Oxymask 06/28/22 00:13 06/27/22 21:39 Oxymask, BiPAP 06/27/22 21:39 95 Oxymask 06/27/22 19:05 93 Oxymask 06/27/22 16:22 06/27/22 15:44 95 Oxymask 06/27/22 13:33 93 95 82 L 06/27/22 10:52 95 Oxymask 06/27/22 09:24 Oxymask 06/27/22 09:24 95 Oxymask O2 Flow Rate O2 Flow Rate O2 Flow Rate O2 Flow Rate O2 Flow Rate 06/28/22 08:17 6 06/28/22 08:10 6 06/28/22 07:27 6 06/28/22 03:58 6.0 06/27/22 23:07 6.0 06/28/22 00:13 06/27/22 21:39 06/27/22 21:39 6 06/27/22 19:05 6 06/27/22 16:22 06/27/22 15:44 6 06/27/22 13:33 6 6 6 06/27/22 10:52 6 06/27/22 09:24 06/27/22 09:24 6 Pre-Sedation Airway Assessment Smoking Status: Former smoker Hx Sleep Apnea: Yes Short, Thick Neck: No Thyromental Distance: < 3.5 Finger Breadths Oral Cavity: + Dental Abnormalities Mallampati Class: III ASA: ASA3 NPO Status Date of Last Intake of Fluids: 06/27/22 Time of Last Intake of Fluids: 23:00 Date of Last Intake of Solid Food: 06/27/22 Time of Last Intake of Solid Foods: 23:00 Notes The planned sedation has been discussed with the patient. Informed Consent was obtained. I have identified the patient, determined the appropriateness of sedation and have assessed the patient immediately prior to the procedure. All medicine(s) and interventions are by my order.
--- NOTE | 2022-06-28 08:29 | History & Physical Bridge Note ---
Date of Service June 28, 2022 History & Physical Bridge Note I have examined the patient, reviewed the History & Physical and in the interval since the performance of the History & Physical I have noted the following changes of clinical significance: no changes noted
[2022-06-28] MEDS ORDERED: RAPID SEQUENCE INDUCTION BAG ONE ×2 (08:30→13:33)
--- NOTE | 2022-06-28 09:16 | Procedure Note ---
Procedure Note Date of Service June 28, 2022 Note Procedure: Fiberoptic bronchoscopy Bronchoalveolar lavage Transbronchial brushing without fluoroscopic guidance Transbronchial biopsies x2 without fluoroscopic guidance Conscious sedation Provider: Titus Orozco MD Consent: Signed by patient and timeout verified prior to procedure. Sedation start: 830 Sedation end: 850 Conscious sedation: 50 mcg fentanyl, 2 mg Versed, topical lidocaine per RT protocol Estimated blood loss: 15 mL Procedure: Patient was brought to the bronchoscopy suite. Consent was verified. Appropriate radiographic studies had been reviewed prior to the procedure. Standard monitoring was applied. Oxygen was administered. After topical anesthesia of the airways per respiratory therapy protocol, the fiberoptic scope was advanced through the left nares. Oropharynx was unremarkable. Vocal cords were visualized and were normal in function and appearance. Topical anesthesia of the cords was achieved with instillation of lidocaine through the scope. Scope was then passed through the vocal cords. The trachea was slightly tortuous. Main carson was mildly splayed. Anesthesia of the lower airways was achieved with instillation of lidocaine through the scope. A sequential and systematic examination of the lower airways was conducted. The right-sided airways were patent with normal anatomic configuration and the mucosa appeared normal. Left-sided airways were patent with normal anatomic configuration and the mucosa appeared normal. After the inspection bronchoscopy was completed, the scope was directed into the superior segment of the lingula. A BAL was performed with instillation of 3 aliquots of 60 cc sterile saline. The return did appear increasingly bloody consistent with a pulmonary hemorrhage pattern. After the BAL was completed, brushings were taken in the lingula as well. The transbronchial biopsy forceps were then advanced into the lingula and 2 biopsies were taken. Additional biopsies were not taken as there was some mild bleeding which was controlled with instillation of saline. The bronchoscope was then removed from the airways. The patient tolerated the procedure well without obvious complication. Patient was returned to the recovery room. Impression: 1. Normal inspection bronchoscopy. 2. BAL in the lingula suggestive of possible pulmonary hemorrhage. Await microbiologic and cytologic analysis. 3. Successful brushing and transbronchial biopsy x2 lingula, await pathology and cytology. Coding CPT Codes Pulmonary/Thoracic - Pulmonary and Thoracic: 88990 Dx bronchoscopy/BAL ([id number]) Pulmonary/Thoracic - Pulmonary and Thoracic: 01208 Bronchoscopy w/ transbronchial lung bx ([id number]) Pulmonary/Thoracic - Pulmonary and Thoracic: 99383 Dx bronchoscopy/brush ([id number]) Sedation/Anesthesia - Sedation/Anesthesia: 11681 Mod Sedation by the same physician;Init15 Min Child Age 5 & Up ([id number]) Sedation/Anesthesia - Sedation/Anesthesia: 18064 Mod Sedation by the same physician; Ea [id number] Minutes ([id number]) [facility] Procedure Codes (Charges) Pulmonary/Thoracic Procedure 1: Pulmonary and Thoracic: 13113 Dx bronchoscopy/BAL Procedure 2: Pulmonary and Thoracic: 36346 Bronchoscopy w/ transbronchial lung bx Procedure 3: Pulmonary and Thoracic: 60209 Dx bronchoscopy/brush Sedation/Anesthesia Procedure 4: Sedation/Anesthesia: 45767 Mod Sedation by the same physician;Init15 Min Child Age 5 & Up Total Sedation Time (minutes): 20 Procedure 5: Sedation/Anesthesia: 11151 Mod Sedation by the same physician; Ea [id number] Minutes Total Sedation Time (minutes): 20
--- NOTE | 2022-06-28 09:20 | Pulmonology Progress Note ---
Date of Service June 28, 2022 Assessment & Plan (1) Acute on chronic respiratory failure with hypoxia: (2) Acute decompensated heart failure: (3) Squamous cell carcinoma lung: Laterality: unspecified laterality Qualified Code(s): C34.90 - Malignant neoplasm of unspecified part of unspecified bronchus or lung (4) ILD (interstitial lung disease): Plan Impression: 71-year-old male with a history of interstitial lung disease had a CT of the chest without contrast performed November 2001 showing interstitial lung disease with multistation bulky adenopathy. Patient underwent endobronchial ultrasound with [facility] pulmonologists December 2021. Lymph node biopsies of station 4R, 10 R, and 7 were consistent with non-small cell carcinoma and right middle lobe transbronchial biopsy showed moderately differentiated squamous cell carcinoma. Imaging also showed hepatic lesions con cerning for metastatic disease although it does not appear these were biopsied. Patient was seen by Dr. Petersen [facility] oncology. PD-L1 was less than 1%. He was initiated on gemcitabine carboplatin and which she was poorly tolerant of due to cytopenias and was changed to every 3-week chemotherapy. He has had progressive hypoxemia and CT scan demonstrated progressive airspace opacities. He underwent bronchoscopy today with findings concerning for potential alveolar hemorrhage. Recommendations: 1. Acute on chronic hypoxemic/hypercarbic respiratory failure with diffuse pulmonary infiltrates: Status post bronchoscopy. Await microbiologic and cytologic analysis. Given the BAL appearance, will initiate the patient on Solu-Medrol 125 mg IVevery 8 for possible pulmonary hemorrhage. Discussed with the patient's sister and post procedure. Hopes are that this represents a steroid responsive illness. If it is a steroid unresponsive process, outcome would be guarded and prognosis poor. They expressed understanding and are in agreement with the plan as outlined. Recommend holding systemic anticoagulation at this point in time. 2. Metastatic squamous cell carcinoma the lung. We will see what cytology on bronchoscopy shows 3. Interstitial lung disease: Unclear outpatient work-up at this point time. Findings could represent organizing pneumonia or progression of interstitial lung disease. It does not appear that the patient has had much in the way of work-up and I would not recommend additional immunosuppression at this point time without a tissue diagnosis 4. COPD: Patient's not bronchospastic currently 5. Hypoxemic respiratory failure: Discussed with respiratory therapy. Would proceed with high flow oxygen. No indication for CPAP or BiPAP in the absence of overt pulmonary edema or hypercarbic respiratory failure. Prognosis guarded. We will see how the patient responds. Admission and Anticipated Discharge Date Admission Date: June 21, 2022 Subjective Patient seen and examined prior to bronchoscopy. He was intermittently on BiPAP overnight and has had his oxygen requirement mildly escalated. He is not coughing or bringing up any phlegm. He is not having any chest pain or palpitations Review of Systems Review of Systems: All systems reviewed & are unremarkable except as noted in Subjective Physical Exam Constitutional: WD/WN, vitals as above ENMT: Mallampati Class: III Neck: trachea midline, no thyromegaly Respiratory: normal respiratory effort, lungs clear to auscultation Cardiovascular: RRR, no murmur, no edema Gastrointestinal (Abdomen): normal bowel sounds, soft, nontender, no hepatosplenomegaly Musculoskeletal: Extremities: extremities normal to inspection Skin: no rashes, warm and dry Lymphatic: no cervical lymphadenopathy Results & Data Results & Data ([facility]) Vital Signs (Past 12 Hours) Vital Signs Temp Pulse Pulse Resp BP BP Pulse Ox 06/28/22 09:05 36.5 C 86 20 109/62 91 06/28/22 08:50 36.5 C 77 20 118/65 92 06/28/22 08:50 75 18 109/75 92 06/28/22 08:45 77 18 105/67 87 L 06/28/22 08:40 89 18 111/77 89 L 06/28/22 08:35 114 H 18 102/62 88 L 06/28/22 08:30 75 18 96/72 L 97 06/28/22 08:17 78 18 120/61 96 06/28/22 08:10 36.5 C 88 18 98/77 L 96 06/28/22 07:27 36.8 C 89 117/76 95 06/28/22 03:58 36.7 C 80 18 106/72 96 06/27/22 23:07 36.6 C 81 18 112/68 93 06/28/22 00:13 73 06/27/22 21:39 06/27/22 21:39 Pulse Ox O2 Del Method O2 Del Method O2 Flow Rate O2 Flow Rate 06/28/22 09:05 Oxymask 12 06/28/22 08:50 Oxymask 13 06/28/22 08:50 Oxymask 15 06/28/22 08:45 Oxymask 15 06/28/22 08:40 Oxymask 15 06/28/22 08:35 Oxymask 15 06/28/22 08:30 Oxymask 15 06/28/22 08:17 Oxymask 6 06/28/22 08:10 Oxymask 6 06/28/22 07:27 Nasal Cannula 6 06/28/22 03:58 Oxymask 6.0 06/27/22 23:07 Oxymask 6.0 06/28/22 00:13 06/27/22 21:39 Oxymask, BiPAP 06/27/22 21:39 95 Oxymask 6 Laboratory Results 06/28/22 06:13 06/28/22 06:13 PG Care Time/CCT Total # of Minutes Spent Total Time Spent with Patient: Total time spent is greater than 50% in coordination of care (as documented) at patient's floor/unit and/or counseling patient: Coding Level of Care Code 93507 Subseq Hosp Care Lvl 3 Diagnoses Acute on chronic respiratory failure with hypoxia J96.21 Acute decompensated heart failure I50.9 Squamous cell carcinoma lung C34.90 Laterality: unspecified laterality ILD (interstitial lung disease) J84.9
--- NOTE | 2022-06-28 09:43 | XRay Report ---
XR chest 1V portable CLINICAL HISTORY: POST BRONCH COMPARISON STUDY: Chest CT June 25, 2022. Chest radiograph June 26, 2022. FINDINGS: Dual lead left subclavian pacer is in place. There is no pneumothorax. Small right pleural effusion is noted. Extensive bilateral airspace opacities with interstitial thickening are similar to prior exam. Postoperative findings within the left shoulder are incidentally noted. IMPRESSION: 1. No pneumothorax following bronchoscopy. 2. No significant change in extensive bilateral airspace opacities and interstitial thickening. 3. Small right pleural effusion. ACT 112: Negative or not required by law. Electronically signed by: Ramiro Ponce M.D. 06/28/2022 9:42 AM
[2022-06-28] MEDS: cefTRIAXone SODIUM 2,000 MG in DEXTROSE 5% 50 ML IV SCH (10:03)
[2022-06-28 11:18] LABS: Basophil Body Fluid Man 1 %; Eosinophil Body Fluid Man 6 %; Fluid Mono/Macrophage 57 %; Lymphocyte Body Fluid Man 6 %; Neutrophil Body Fluid Man 30 %
[2022-06-28] MEDS: FOLIC ACID 1 MG TAB PO SCH (11:18)
[2022-06-28] MEDS: CETIRIZINE HCL 10 MG TABLET PO SCH (11:18)
[2022-06-28] MEDS: CHOLECALCIFEROL 1,000 UNITS 25 MCG TAB PO SCH (11:18)
[2022-06-28] MEDS: METOPROLOL SUCC 50MG EXT REL TAB PO SCH ×2 (11:19→20:51)
[2022-06-28] MEDS: allopurinoL 100 MG TAB PO SCH (11:19)
[2022-06-28] MEDS: DOXYCYCLINE HYCLATE 100 MG CAP PO SCH ×2 (11:19→20:51)
[2022-06-28] MEDS: CYANOCOBALAMIN (B-12) 100 MCG TABLET PO SCH (11:20)
[2022-06-28] MEDS: FUROSEMIDE INJ 20 MG/2 ML VIAL IV SCH ×2 (11:20→17:07)
[2022-06-28] MEDS: PANTOprazole 40 MG TAB PO SCH (11:21)
[2022-06-28] MEDS: UMECLIDINIUM BROMIDE 62.5MCG/BLISTER 7 PUFFS/INHALER INH SCH (11:21)
--- NOTE | 2022-06-28 13:50 | Communication Note ---
Date of Service: June 28, 2022 Responded to code purple on the floor. The patient had undergone bronchoscopy with transbronchial biopsies earlier today. He recovered well and returned to the floor. Apparently when family came in they found him on the floor. Is unclear how long he was down. He was unresponsive. He was returned back to bed. He had pulse and normal blood pressure. He was empirically placed on BiPAP by respiratory therapy. A blood gas was obtained on my arrival which showed a pH of 7.27 with a PCO2 of 94. The patient was emergently transferred to the ICU. As we were preparing for intubation mechanical ventilation, the patient's mental status improved. He was following commands. He was able to verbalize his name. He moves all 4 extremities to command. He denied any pain. There was no evidence of any trauma. Impression: Altered mental status due to hypercarbic respiratory failure: Recommendations: 1. Unclear etiology. Appears to far delayed to have been related to the sedation administered with bronchoscopy. Nevertheless, the patient is significantly improved with noninvasive positive pressure ventilation. Continue for now. We will repeat blood gas in a few hours and if he does well we will plan on weaning off noninvasive positive pressure ventilation. 2. We will avoid any medications involved with respiratory suppression. 3. We will proceed with CT scan of the head although the patient's neurological exam currently is nonfocal. We will also repeat chest x-ray given his bronchoscopy with biopsies earlier today. 4. Continue high-dose steroids as per my note earlier today. The patient's sister was updated extensively at bedside. The is apparently in route. We will continue to monitor in the ICU for now. A total of 49 minutes critical care time was spent in evaluation management stabilization of this patient with potential life-threatening illness. Coding Level of Care Code Critical Care 1st 30-74 mins
[2022-06-28 13:56] LABS: iSTAT Allen Test Pass; iSTAT Art Bld Gas pCO2 Correct 95 mmHg (35-46); iSTAT Art Bld Gas pH Corrected 7.268 (7.35-7.45); iSTAT Arterial Blood Gas HCO3 43 meg/L (19-24); iSTAT Arterial Blood Gas pCO2 95 mmHg (35-46); iSTAT Arterial Blood Gas pH 7.27 (7.35-7.45); iSTAT Arterial Blood Gas pO2 132 mmHg (80-95); iSTAT Arterial Blood Gas pO2 C 132; iSTAT Carbon Dioxide > 40 mmol/L (24-31); iSTAT FiO2 100 %; iSTAT Hematocrit 33 % (42-52); iSTAT Hemoglobin 11.2 g/dl (14.0-18.0); iSTAT Potassium 4.2 mmol/L (3.3-5.0); iSTAT Site L Radial; iSTAT Sodium 136 mmol/L (135-144)
--- NOTE | 2022-06-28 13:56 | Hospitalist Progress Note ---
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 Hospital course 06/21- presented to ED with oxygen saturation in 70s, required 6L oxymask on admission. Baseline of 2 L NC. Started on iv lasix 20 mg 06/22- Echo with EF 35-40%. Seen by cardio- continued on iv lasix bid. Started on Empiric Ceftriaxone/doxy for persistent leucocytosis and immunocompromised state. 06/23- Still on 5 L NC. Iv lasix increased to 20 mg tid 06/24- Worsening hypoxia to 10 L oxymask. CXR with worsening CHF. IV lasix increased to 40 q8hr 06/25- CT with pulm edema > PNA. Seen by pulm. started on BIPAP, continue iv lasix 06/26- CXR shows minimal improvement- iv lasix increased to 60 mg 06/27- Pulm plans for bronchoscopy, continue iv lasix 60 bid 06/28- patient underwent bronchoscopy. Was found on the floor unresponsive. Was found to have acute hypercapnic respiratory failure. Transferred to ICU for further care. CXR 06/21- 1. Cardiomegaly and AICD with evidence of congestive failure and pulmonary edema. CXR 06/24- Cardiomegaly with progressive mixed interstitial and alveolar opacities. Findings are suggestive of pulmonary edema superimposed on chronic fibrosis. CT chest 06/25 1. Streak and motion compromised examination. 2. Cardiomegaly an AICD with evidence of congestive failure. 3. Diffuse airspace consolidation throughout both lungs likely represents pulmonary edema. This could also be seen with multifocal pneumonia and/or ARDS. Clinical correlation will be essential. 4. Right larger than left pleural effusions. 5. Again seen are changes of chronic interstitial lung disease. This cannot be compared to previous due to extensive superimposed airspace consolidation. 6. Mediastinal lymphadenopathy is increased from previous. This is likely reactive. 7. Calcified mediastinal and hilar lymph nodes are unchanged. CXR 06/26- 1. Interstitial thickening and multifocal airspace opacities, minimall y improved since prior exam. The findings could reflect pulmonary edema, pneumonia or ARDS. Bronchoscopy on normal inspection bronchoscopy. BAL in lingula suggestive of possible pulmonary hemorrhage. Acute on chronic respiratory failure with hypoxia- likely multifactorial with his CHF, ILD, lung cancer Acute Hypercapnic Respiratory Failure Altered mental status 2/2 Hypercapnic Respiratory Failure Plan: - Head CT given his fall and altered mental status. - Needs bipap prn and at night. - CXR and CT chest reviewed as above - Cardio and pulm following- continue iv lasix, BIPAP and antibiotics - continue lasix, monitor I and Os and daily weight for further management - Already on ABx since admission- plan for 7 day course - Continue bipap and supplemental oxygen wean off as tolerated Acute on chronic systolic heart failure - Echo with EF 35-40% - Continue iv lasix 60 bid- monitor I and Os, daily weight - Cardio following Squamous cell carcinoma lung - Follows with Dr. Petersen of [facility] onc and was seen in follow up earlier today. Chemo regimen includes gemcitabine and the carboplatin chemotherapy which was started in December 2021 - Last received chemo 06/17/22 Anemia - Recent admissions with severe anemia requiring prbc transfusions - Receiving Aranesp for chronic anemia every 3 weeks - Hgb stable >8. 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 CT chest reviewed as above CKD (chronic kidney disease), stage III - Cr at baseline ~1.51, currently improved to 1.3. Continue to monitor with daily BMP CAD (coronary artery disease) - Stable. Continue statin, Toprol H/o DVT/PE in 2016- Continue Xarelto after CT head Paroxysmal atrial fibrillation- Continue Toprol, xarelto. Digoxin added by cardio COPD- started on incruse ellipta per pulm Hypomagnesemia- repleted. DVT ppx: Xarelto on hold currently. Resume after CT head Dispo: ICU pending medical improvement Code status: Full code Admission and Anticipated Discharge Date Admission Date: June 21, 2022 Subjective Patient seen in the morning and during code purple. In the morning, patient was lying in the bed comfortably. He was on oxygen mask; breathing was nonlabored. He was awake, alert X 3. He feels like he is breathin better. He denies fever, chills, chest pain, shortness of breath. Patient was seen in he afternoon during code purple. He was found on the ground. The mechanism of the fall is unclear. He was unresponsive to noxious stimuli. He was found to have acute hypercapnic respiratory failure. He was then transferred to ICU for further care. Review of Systems Review of Systems: All systems reviewed & are unremarkable except as noted in Subjective Physical Exam Physical Exam: General: Lethargic, nonresponsive to any noxious stimuli. Chest: Bilateral crackles heard upto midchest CVS: Irregular, normal heart sounds, no murmur Abdomen: Soft, non tender, not distended, normal bowel sounds Neuro: Lethargic, doesn't respond to noxious stimuli. Extremities: trace edema Results & Data Results & Data ([facility]) Vital Signs (Past 12 Hours) Vital Signs Temp Pulse Pulse Resp BP BP Pulse Ox 06/28/22 10:41 36.3 C L 72 18 117/75 95 06/28/22 10:00 36.8 C 78 20 108/61 95 06/28/22 08:45 06/28/22 08:00 78 06/28/22 09:20 36.5 C 77 16 108/85 91 06/28/22 09:05 36.5 C 86 20 109/62 91 06/28/22 08:50 36.5 C 77 20 118/65 92 06/28/22 08:50 75 18 109/75 92 06/28/22 08:45 77 18 105/67 87 L 06/28/22 08:40 89 18 111/77 89 L 06/28/22 08:35 114 H 18 102/62 88 L 06/28/22 08:30 75 18 96/72 L 97 06/28/22 08:17 78 18 120/61 96 06/28/22 08:10 36.5 C 88 18 98/77 L 96 06/28/22 07:27 36.8 C 89 117/76 95 06/28/22 03:58 36.7 C 80 18 106/72 96 O2 Del Method O2 Flow Rate 06/28/22 10:41 Oxymask 10 06/28/22 10:00 Oxymask 10 06/28/22 08:45 Oxymask 06/28/22 08:00 06/28/22 09:20 Oxymask 10 06/28/22 09:05 Oxymask 12 06/28/22 08:50 Oxymask 13 06/28/22 08:50 Oxymask 15 06/28/22 08:45 Oxymask 15 06/28/22 08:40 Oxymask 15 06/28/22 08:35 Oxymask 15 06/28/22 08:30 Oxymask 15 06/28/22 08:17 Oxymask 6 06/28/22 08:10 Oxymask 6 06/28/22 07:27 Nasal Cannula 6 06/28/22 03:58 Oxymask 6.0 Diagnostic Findings Laboratory Results WBC 8.12 K/ul (4.8-10.8) 06/26/22 05:51 RBC 2.91 M/uL (4.63-6.08) L 06/26/22 05:51 Hgb 9.1 g/dl (14.0-18.0) L 06/28/22 06:13 POC Hgb 11.2 g/dl (14.0-18.0) L 06/28/22 13:28 Hct 29.1 % (40.1-51.0) L 06/28/22 06:13 POC Hct 33 % (42-52) L 06/28/22 13:28 MCV 98.6 fL (80.0-100.0) 06/26/22 05:51 MCH 30.6 pg (25.0-34.0) 06/26/22 05:51 MCHC 31.0 g/dL (32.0-36.0) L 06/26/22 05:51 RDW Std Deviation 70.9 fL (36.4-46.3) H 06/26/22 05:51 RDW Coeff of Yogi 20.4 % (11.5-14.5) H 06/26/22 05:51 Plt Count 217 K/uL (130-400) 06/26/22 05:51 MPV 10.1 fL (9.4-12.4) 06/26/22 05:51 Immature Gran % (Auto) 0.6 % 06/21/22 15:42 Neut % (Auto) 93.9 % 06/21/22 15:42 Lymph % (Auto) 3.1 % 06/21/22 15:42 Sandoval % (Auto) 1.1 % 06/21/22 15:42 Eos % (Auto) 1.1 % 06/21/22 15:42 Baso % (Auto) 0.2 % 06/21/22 15:42 Neut # (Auto) 12.45 K/uL (1.4-6.5) H 06/21/22 15:42 Lymph # (Auto) 0.41 K/uL (1.2-3.4) L 06/21/22 15:42 Sandoval # (Auto) 0.15 K/uL (0.24-0.82) L 06/21/22 15:42 Eos # (Auto) 0.15 K/uL (0-0.50) 06/21/22 15:42 Baso # (Auto) 0.03 K/uL (0-0.2) 06/21/22 15:42 Immature Gran # (Auto) 0.08 K/uL (0.00-0.02) H 06/21/22 15:42 Absolute Nucleated RBC 0.22 K/uL (0-0) H 06/26/22 05:51 Nucleated RBC % (auto) 2.7 % 06/26/22 05:51 Anisocytosis Present 06/21/22 15:42 Sample Site L Radial 06/28/22 13:28 POC pH 7.27 (7.35-7.45) L 06/28/22 13:28 POC pCO2 95 mmHg (35-46) H 06/28/22 13:28 POC pO2 132 mmHg (80-95) H 06/28/22 13:28 POC HCO3 43 virgil/L (19-24) H 06/28/22 13:28 POC Total CO2 > 40 mmol/L (24-31) H* 06/28/22 13:28 POC Base Excess 16.0 virgil/L (-9-1.8) H 06/28/22 13:28 ABG pH (Temp Correct) 7.268 (7.35-7.45) L 06/28/22 13:28 ABG pCO2 (Temp Corrct 95 mmHg (35-46) H 06/28/22 13:28 POC ABG pO2 at Pt Temp 132 06/28/22 13:28 POC ABG O2 Sat 98.0 % (90-95) H 06/28/22 13:28 Nehemias Test Pass 06/28/22 13:28 VBG pH 7.41 (7.36-7.41) 06/21/22 15:44 VBG pCO2 56 mmHg (38-50) H 06/21/22 15:44 VBG pO2 25 mmHg 06/21/22 15:44 VBG HCO3 36 mmol/L 06/21/22 15:44 VBG O2 Saturation < 60.0 % 06/21/22 15:44 VBG Base Excess 8.9 mEq/L 06/21/22 15:44 O2 Delivery Device BIPAP 06/28/22 13:28 POC O2 Rate 16 06/28/22 13:28 POC FiO2 100 % 06/28/22 13:28 IPAP 16 06/28/22 13:28 POC Sodium 136 mmol/L (135-144) 06/28/22 13:28 Sodium 137 mmol/L (136-145) 06/28/22 06:13 POC Potassium 4.2 mmol/L (3.3-5.0) 06/28/22 13:28 Potassium 4.3 mmol/L (3.5-5.1) 06/28/22 06:13 Chloride 89 mmol/L (98-107) L 06/28/22 06:13 Carbon Dioxide 42 mmol/L (21-32) H* 06/28/22 06:13 Anion Gap 6 (3-11) 06/28/22 06:13 BUN 34 mg/dl (6-23) H 06/28/22 06:13 Creatinine 1.32 mg/dl (0.6-1.4) 06/28/22 06:13 Est Cr Clr Drug Dosing 56.3 ml/min 06/28/22 06:13 Est GFR ( Amer) 61.6 ml/min 06/28/22 06:13 Est GFR (Non-Af Amer) 53.1 ml/min 06/28/22 06:13 BUN/Creatinine Ratio 25.8 (10-20) H 06/28/22 06:13 Glucose 116 mg/dl (70-99(Fasting)) H 06/28/22 06:13 Calcium 9.4 mg/dl (8.5-10.1) 06/28/22 06:13 Magnesium 1.9 mg/dl (1.7-2.4) 06/28/22 06:13 Total Bilirubin 1.8 mg/dl (0.2-1.0) H 06/21/22 15:42 AST 45 U/L (13-39) H 06/21/22 15:42 ALT 32 U/L (7-52) 06/21/22 15:42 Alkaline Phosphatase 233 U/L (34-104) H 06/21/22 15:42 Troponin I High Sens 22.5 pg/ml (0-20) H 06/21/22 15:42 B-Natriuretic Peptide 489 pg/ml (0-100) H 06/24/22 06:05 Total Protein 7.5 gm/dl (6.0-8.3) 06/21/22 15:42 Albumin 3.2 gm/dl (3.4-5.0) L 06/21/22 15:42 Globulin 4.3 gm/dl (2.5-4.0) H 06/21/22 15:42 Albumin/Globulin Ratio 0.7 (0.9-2) L 06/21/22 15:42 Procalcitonin 0.75 ng/ml (0-0.5) H 06/23/22 05:27 Urine Color Dark Yellow 06/21/22 18:05 Urine Appearance Clear (Clear) 06/21/22 18:05 Urine pH 5.0 (4.5-7.5) 06/21/22 18:05 Ur Specific [place] 1.015 (1.000-1.030) 06/21/22 18:05 Urine Protein Trace (Negative) H 06/21/22 18:05 Urine Glucose (UA) Negative (Negative) 06/21/22 18:05 Urine Ketones Negative (Negative) 06/21/22 18:05 Urine Blood Negative (Negative) 06/21/22 18:05 Urine Nitrite Negative (Negative) 06/21/22 18:05 Urine Bilirubin 1+ (Negative) H 06/21/22 18:05 Urine Urobilinogen Negative (Negative) 06/21/22 18:05 Ur Leukocyte Esterase Trace (Negative) H 06/21/22 18:05 Urine WBC (Auto) 5-10 /hpf (0-5) H 06/21/22 18:05 Urine RBC (Auto) 0-4 /hpf (0-4) 06/21/22 18:05 U Hyaline Cast (Auto) 1-5 /lpf (0-5) 06/21/22 18:05 U Epithel Cells (Auto) >30 /lpf (0-5) H 06/21/22 18:05 Urine Bacteria (Auto) Negative (Negative) 06/21/22 18:05 Fluid Neutrophils % 30 % 06/28/22 08:40 Fluid Lymphocytes % 6 % 06/28/22 08:40 Fluid Eosinophils % 6 % 06/28/22 08:40 Fluid Basophils % 1 % 06/28/22 08:40 Fl Monocyt/Macrophag % 57 % 06/28/22 08:40 Fluid Comment 06/28/22 08:40 Nasal Screen MRSA (PCR) Negative (Negative) 06/25/22 11:14 SARS-CoV-2 (PCR) NEGATIVE (Negative) 06/21/22 15:55 Influ A Molecular Assay Negative (Negative) 06/25/22 11:14 Influ B Molecular Assay Negative (Negative) 06/25/22 11:[address] 06/25/22 07:45 CT SCAN OF THE CHEST WITHOUT IV CONTRAST CLINICAL HISTORY: Hypoxia. Congestive heart failure. COMPARISON STUDY: Chest x-ray dated 06/24/2022. A chest CT dated 11/20/2019. TECHNIQUE: CT scan of the thorax was performed from the thoracic inlet to the upper abdomen. Images are reviewed in the axial, sagittal, and coronal planes. IV contrast was not administered for this examination as per the referring clinician. A dose lowering technique was utilized adhering to the principles of ALARA. The examination is compromised by motion artifact, as well as by streak artifact from the arms which could not be elevated above the chest. CT DOSE: 1076.19 mGy.cm FINDINGS: Thyroid: Mildly enlarged and heterogeneous. Thoracic aorta: The thoracic aorta is normal in caliber and demonstrates standard 3-vessel arch anatomy. Heart: A cardiac AICD is present in the left chest wall. The heart is enlarged noting trace pericardial effusion. The coronary arteries are densely calcified. Lungs and pleural spaces: Again seen are changes of chronic interstitial lung disease. There is diffuse subpleural reticulation. Traction bronchiectasis is noted in the lower lobes. No honeycombing is seen. Intralobular septal thickening is seen throughout both lungs. There is diffuse airspace consolidation throughout both lungs, with mild spurring at the apices. There are small pleural effusions, right larger than left with associated atelectasis. The trachea and central airways are clear. There is no pneumothorax. Mediastinum: There are numerous mildly enlarged mediastinal lymph nodes which measure up to 14 mm short axis. Several containing calcifications. Violette: There are calcified right hilar lymph nodes. Note that the violette are not well assessed without IV contrast. Axillae: There is no axillary lymphadenopathy. Upper abdomen: Calcified granulomas are noted in the liver and spleen. Partially visualized upper abdominal viscera is within normal limits. Skeletal structures: The skeletal structures are osteopenic. Degenerative change is noted in the shoulders and thoracic spine. No lytic or blastic bony lesions are seen. Soft tissues: Gynecomastia is noted. IMPRESSION: 1. Streak and motion compromised examination. 2. Cardiomegaly an AICD with evidence of congestive failure. 3. Diffuse airspace consolidation throughout both lungs likely represents pulmonary edema. This could also be seen with multifocal pneumonia and/or ARDS. Clinical correlation will be essential. 4. Right larger than left pleural effusions. 5. Again seen are changes of chronic interstitial lung disease. This cannot be compared to previous due to extensive superimposed airspace consolidation. 6. Mediastinal lymphadenopathy is increased from previous. This is likely reactive. 7. Calcified mediastinal and hilar lymph nodes are unchanged. ACT 112: Negative or not required by law. Electronically signed by: Be Domínguez M.D. 06/25/2022 10:07 AM Chest X-Ray 06/28/22 13:46 XR chest 1V portable HISTORY: Respiratory failure. COMPARISON: Chest 06/28/2022. FINDINGS: There is left-sided pacemaker/defibrillator. The cardiac silhouette remains mildly enlarged. There is diffuse interstitial thickening with patchy bilateral airspace opacities. Mild elevation of the right hemidiaphragm. No definite pleural effusions. IMPRESSION: No significant change in the diffuse interstitial thickening and patchy bilateral airspace opacities. ACT 112: Negative or not required by law. Electronically signed by: Reza Shanks M.D. 06/28/2022 2:03 PM (1) Anemia Anemia type: unspecified type Qualified Code(s): D64.9 - Anemia, unspecified
--- NOTE | 2022-06-28 14:06 | XRay Report ---
XR chest 1V portable HISTORY: Respiratory failure. COMPARISON: Chest 06/28/2022. FINDINGS: There is left-sided pacemaker/defibrillator. The cardiac silhouette remains mildly enlarged . There is diffuse interstitial thickening with patchy bilateral airspace opacities. Mild elevation o f the right hemidiaphragm. No definite pleural effusions. IMPRESSION: No significant change in the diffuse interstitial thickening and patchy bilateral airspace opacities. ACT 112: Negative or not required by law. Electronically signed by: Reza Shanks M.D. 06/28/2022 2:03 PM
--- NOTE | 2022-06-28 14:53 | CT Scan Report ---
CT head/brain wo con CLINICAL HISTORY: fall, AMS Technique: Contiguous axial CT images of the head were acquired from the base of the skull to the jerod sebas without intravenous contrast administration. Images were viewed in brain, subdural and bone [facility]. Automated dose lowering techniques and/or adjustment according to patient size were utilized for this exam. Comparison: Comparison is made to CT head 12/09/2006. Findings: Areas of decreased attenuation are present in the periventricular and subcortical white matter bilate rally consistent with small vessel ischemic disease. Generalized cerebral atrophy with commensurate e nlargement of the ventricles, sulci, and cisterns is also present. There is no acute intracranial hem orrhage or evidence of acute territorial infarction. No shift of the midline structures, mass effect, or extra-axial abnormalities are shown. Atherosclerotic calcifications are present in the intracran ial segments of the internal carotid arteries. There is focal encephalomalacia in the left frontal lo be. There is a 4 mm intermediate density left subdural collection. Imaged portions of the paranasal sinuses and mastoid air cells are clear. The orbits appear normal. There are no acute fractures of the calvaria or scalp swelling. Impression: 1. No acute abnormality is seen. 2. Left subdural collection likely represents a subacute to chronic subdural hematoma, recommend 24 to 48 hour follow-up to exclude acute component. 3. 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 ACT 112: Negative or not required by law. Electronically signed by: Riley Angeles M.D. 06/28/2022 2:51 PM
[2022-06-28] MEDS: methylPREDNISolone 125 MG in SYRINGE 0 ML IV SCH ×2 (15:02→20:51)
[2022-06-28 15:08] LABS: iSTAT Allen Test Pass; iSTAT Art Bld Gas pCO2 Correct 76 mmHg (35-46); iSTAT Art Bld Gas pH Corrected 7.403 (7.35-7.45); iSTAT Arterial Blood Gas HCO3 48 meg/L (19-24); iSTAT Arterial Blood Gas pCO2 77 mmHg (35-46); iSTAT Arterial Blood Gas pO2 78 mmHg (80-95); iSTAT Arterial Blood Gas pO2 C 77; iSTAT Carbon Dioxide > 40 mmol/L (24-31); iSTAT FiO2 60 %; iSTAT Hematocrit 31 % (42-52); iSTAT Hemoglobin 10.5 g/dl (14.0-18.0); iSTAT Potassium 4.2 mmol/L (3.3-5.0); iSTAT Site R Radial; iSTAT Sodium 134 mmol/L (135-144)
[2022-06-28] MEDS: DIGOXIN 0.125 MG TAB PO SCH (16:06)
[2022-06-28] MEDS: ATORVASTATIN 40 MG TAB PO SCH (20:51)
[2022-06-29 04:19] LABS: Hemoglobin 10.1 g/dl (14.0-18.0); Mean Corpuscular Hemoglobin 31.5 pg (25.0-34.0); Mean Corpuscular Hgb Conc 30.6 g/dL (32.0-36.0); Mean Corpuscular Volume 102.8 fL (80.0-100.0); Mean Platelet Volume 10.7 fL (9.4-12.4); Nucleated RBC # (auto) 0.12 K/uL (0-0); Nucleated RBC % (auto) 1.1 %; Platelet Count 215 K/uL (130-400); RDW Coefficient of Variation 22.2 % (11.5-14.5); RDW Standard Deviation 78.9 fL (36.4-46.3); Red Blood Count 3.21 M/uL (4.63-6.08); White Blood Count 11.37 K/ul (4.8-10.8)
[2022-06-29 05:37] LABS: Albumin Globulin Ratio 0.7 (0.9-2); Albumin Level 3.3 gm/dl (3.4-5.0); BUN Creatinine Ratio 29.1 (10-20); Bilirubin,Total 1.2 mg/dl (0.2-1.0); Calcium 9.8 mg/dl (8.5-10.1); Creatinine Clr Calc Pharmacy 49.2 ml/min; Est GFR (African American) 52.4 ml/min; Est GFR (Non-African American) 45.2 ml/min; Globulin 4.7 gm/dl (2.5-4.0); Phosphorus 4.9 mg/dl (2.5-4.9); Potassium 5.1 mmol/L (3.5-5.1)
[2022-06-29] MEDS: methylPREDNISolone 125 MG in SYRINGE 0 ML IV SCH ×3 (06:13→22:50)
--- NOTE | 2022-06-29 07:59 | Critical Care Progress Note ---
Date of Service June 29, 2022 Assessment & Plan (1) Acute on chronic respiratory failure with hypoxia: (2) Acute decompensated heart failure: (3) Squamous cell carcinoma lung: (4) ILD (interstitial lung disease): Plan Impression: 71-year-old male with a history of interstitial lung disease had a CT of the chest without contrast performed November 2001 showing interstitial lung disease with multistation bulky adenopathy. Patient underwent endobronchial ultrasound with [facility] pulmonologists December 2021. Lymph node biopsies of station 4R, 10 R, and 7 were consistent with non-small cell carcinoma and right middle lobe transbronchial biopsy showed moderately dif ferentiated squamous cell carcinoma. Imaging also showed hepatic lesions concerning for metastatic disease although it does not appear these were biopsied. Patient was seen by Dr. Petersen [facility] oncology. PD-L1 was less than 1%. He was initiated on gemcitabine carboplatin and which she was poorly tolerant of due to cytopenias and was changed to every 3-week chemotherapy. He has had progressive hypoxemia and CT scan demonstrated progressive airspace opacities. He underwent bronchoscopy 06/28/2022 with findings concerning for potential alveolar hemorrhage. He was found unresponsive on the floor and transferred emergently to the ICU. He was found to be in hypercarbic respiratory failure and responded appropriately to noninvasive positive pressure ventilation and avoided intubation. This morning he is much better. He has been placed on empiric steroids for alveolar hemorrhage Recommendations: 1. Acute on chronic hypoxemic/hypercarbic respiratory failure with diffuse pulmonary infiltrates: Await final cytology and pathology report from biopsies. BAL concerning for alveolar hemorrhage and the patient has been initiated on high-dose steroids. We will check MIRANDA with reflex, ANCA, ESR, and CRP. Repeat urinalysis to see if there is hematuria. Continue steroids for now. Appears clinically improved with regards to his oxygen requirement. He has chronic hypercarbic respiratory failure and recommend we continue BiPAP 10/5 nightly as tolerated. 2. Metastatic squamous cell carcinoma the lung. Await bronchoscopy cytology and pathology on transbronchial biopsies 3. Interstitial lung disease: Unclear outpatient work-up at this point time. Await bronchoscopy results. The patient's not really candidate for surgical lung biopsy at this point time 4. COPD: Patient's not bronchospastic currently 5. Leukocytosis with downtrending procalcitonin, probable pneumonia. Continue antimicrobial therapy, currently day #7 Rocephin and day #7 doxycycline. Anticipate 10-day course unless bronchoscopy results show something different 6. Mild stable anemia. No indication of acute blood loss or indication for transfusion currently. Continue to trend 7. Mild hyperkalemia this morning. Continue to follow. 8. Increased serum creatinine: Likely secondary to sequelae from yesterday's events. We will repeat BMP this afternoon. Hold additional Lasix for now 9. PT OT and out of bed to chair as tolerated. Advancing diet as tolerated. The patient appears stable to transfer out of the ICU back to the floor. We will continue to follow for pulmonary issues. Feel free to contact us with questions. Admission and Anticipated Discharge Date Admission Date: June 21, 2022 Subjective Patient seen and examined. EMR reviewed. Discussed with critical care nurse and patient at bedside. The patient is improved this morning. He is awake alert and conversant. He is down to 2 L nasal cannula but will have to increase up to 4 L with any significant activity. He tolerated empiric BiPAP last night. He states it was not the most comfortable thing in the world but he was able to sleep with the device. He is coughing up small amounts of dark phlegm but has not had any hemoptysis. Review of Systems Review of Systems: All systems reviewed & are unremarkable except as noted in Subjective Physical Exam Constitutional: WD/WN, vitals as above ENMT: Mallampati Class: III Neck: trachea midline, no thyromegaly Respiratory: no respiratory distress, no labored breathing and not tachypneic Auscultation: + diminished lung sounds, + crackles and + rhonchi; no wheezes Cardiovascular: RRR, no murmur, no edema Gastrointestinal (Abdomen): normal bowel sounds, soft, nontender, no hepatos plenomegaly Musculoskeletal: Extremities: extremities normal to inspection Skin: no rashes, warm and dry Lymphatic: no cervical lymphadenopathy Results & Data Results & Data ([facility]) Vital Signs (Past 12 Hours) Vital Signs Temp Pulse Resp BP Pulse Ox O2 Del Method FiO2 06/29/22 06:15 36.6 C 65 14 94 06/29/22 06:00 36.7 C 67 14 96 06/29/22 06:00 14 119/69 06/29/22 05:45 36.8 C 62 14 97 06/29/22 05:30 36.8 C 62 14 95 06/29/22 05:15 36.8 C 60 14 95 06/29/22 05:01 36.8 C 60 14 93 06/29/22 05:01 119/69 06/29/22 05:00 36.8 C 66 20 93 06/29/22 04:45 36.8 C 65 13 93 06/29/22 04:30 36.8 C 70 26 H 100 06/29/22 04:15 36.8 C 62 14 100 06/29/22 04:00 36.8 C 66 14 99 06/29/22 03:45 36.7 C 62 14 100 06/29/22 03:30 36.8 C 66 18 97 06/29/22 03:15 36.8 C 64 12 96 06/29/22 03:01 97/64 L 06/29/22 03:01 36.9 C 68 14 95 06/29/22 03:00 36.9 C 76 17 93 06/29/22 02:45 36.9 C 70 14 96 06/29/22 02:30 36.9 C 73 14 96 06/29/22 02:15 36.9 C 68 14 98 06/29/22 02:00 36.9 C 70 14 99 06/29/22 02:00 104/68 06/29/22 01:45 37.0 C 82 14 99 06/29/22 01:30 37.1 C 69 20 99 06/29/22 01:15 37.1 C 68 18 99 06/29/22 01:00 37.1 C 66 14 99 06/29/22 01:00 100/57 L 06/29/22 00:45 37.1 C 70 14 99 06/29/22 00:33 112/67 06/29/22 00:33 37.1 C 77 21 94 06/29/22 00:30 37.2 C 77 14 90 06/29/22 00:15 37.2 C 63 21 100 06/29/22 00:15 98/67 L 06/29/22 00:00 37.2 C 68 14 99 06/29/22 00:00 96/67 L 06/28/22 23:45 37.2 C 74 14 100 06/28/22 23:45 14 99/59 L 06/28/22 23:30 37.2 C 67 14 100 06/28/22 23:30 98/74 L 06/28/22 23:15 37.2 C 77 14 96 06/28/22 23:15 105/68 06/28/22 23:00 37.2 C 83 14 96 06/28/22 23:00 112/74 06/28/22 22:45 37.2 C 75 14 96 06/28/22 22:45 106/73 06/28/22 22:30 37.1 C 76 13 98 06/28/22 22:30 106/63 06/28/22 22:15 37.3 C 75 16 100 06/28/22 22:15 116/72 06/29/22 01:52 82 06/28/22 23:23 78 36 H 94 50 06/28/22 22:00 37.3 C 65 26 H 99 06/28/22 22:00 109/76 06/28/22 21:46 37.3 C 81 28 H 99 06/28/22 21:46 119/68 06/28/22 21:45 37.3 C 75 19 97 06/28/22 21:30 37.3 C 78 18 100 06/28/22 21:30 106/71 06/28/22 21:15 37.2 C 72 10 L 98 06/28/22 21:15 110/66 06/28/22 21:00 37.2 C 85 15 95 06/28/22 21:00 102/70 06/28/22 20:45 37.2 C 83 34 H 96 06/28/22 20:45 104/70 06/28/22 20:30 37.2 C 78 31 H 95 06/28/22 20:30 103/73 06/28/22 20:15 37.2 C 78 36 H 93 06/28/22 20:15 113/66 06/28/22 20:00 37.2 C 82 36 H 95 06/28/22 20:00 105/77 06/28/22 20:06 BiPAP, High Flow Nasal Cannula Laboratory Results Bronchoscopy BAL cytology pending Bronchoscopy brushing cytology pending Transbronchial biopsies pending BAL differential: 30% neutrophils, 6% lymphocytes, 6% eosinophils, 1% basophils, 57% monocytes Procalcitonin down to 0.59 from 0.75 BAL acid-fast and fungal stains negative, cultures pending BAL PJP PCR pending BAL gram stain with no organisms and few mononucleated cells and moderate polys, culture pending Diagnostic Findings Chest x-ray from today independently reviewed. There is improvement in the bilateral airspace opacities. Critical Care Results & Data Vital Signs (Past 12 Hours) Vital Signs Temp Pulse Resp BP Pulse Ox O2 Del Method FiO2 06/29/22 06:15 36.6 C 65 14 94 06/29/22 06:00 36.7 C 67 14 96 06/29/22 06:00 14 119/69 06/29/22 05:45 36.8 C 62 14 97 06/29/22 05:30 36.8 C 62 14 95 06/29/22 05:15 36.8 C 60 14 95 06/29/22 05:01 36.8 C 60 14 93 06/29/22 05:01 119/69 06/29/22 05:00 36.8 C 66 20 93 06/29/22 04:45 36.8 C 65 13 93 06/29/22 04:30 36.8 C 70 26 H 100 06/29/22 04:15 36.8 C 62 14 100 06/29/22 04:00 36.8 C 66 14 99 06/29/22 03:45 36.7 C 62 14 100 06/29/22 03:30 36.8 C 66 18 97 06/29/22 03:15 36.8 C 64 12 96 06/29/22 03:01 97/64 L 06/29/22 03:01 36.9 C 68 14 95 06/29/22 03:00 36.9 C 76 17 93 06/29/22 02:45 36.9 C 70 14 96 06/29/22 02:30 36.9 C 73 14 96 06/29/22 02:15 36.9 C 68 14 98 06/29/22 02:00 36.9 C 70 14 99 06/29/22 02:00 104/68 06/29/22 01:45 37.0 C 82 14 99 06/29/22 01:30 37.1 C 69 20 99 06/29/22 01:15 37.1 C 68 18 99 06/29/22 01:00 37.1 C 66 14 99 06/29/22 01:00 100/57 L 06/29/22 00:45 37.1 C 70 14 99 06/29/22 00:33 112/67 06/29/22 00:33 37.1 C 77 21 94 06/29/22 00:30 37.2 C 77 14 90 06/29/22 00:15 37.2 C 63 21 100 06/29/22 00:15 98/67 L 06/29/22 00:00 37.2 C 68 14 99 06/29/22 00:00 96/67 L 06/28/22 23:45 37.2 C 74 14 100 06/28/22 23:45 14 99/59 L 06/28/22 23:30 37.2 C 67 14 100 06/28/22 23:30 98/74 L 06/28/22 23:15 37.2 C 77 14 96 06/28/22 23:15 105/68 06/28/22 23:00 37.2 C 83 14 96 06/28/22 23:00 112/74 06/28/22 22:45 37.2 C 75 14 96 06/28/22 22:45 106/73 06/28/22 22:30 37.1 C 76 13 98 06/28/22 22:30 106/63 06/28/22 22:15 37.3 C 75 16 100 06/28/22 22:15 116/72 06/29/22 01:52 82 06/28/22 23:23 78 36 H 94 50 06/28/22 22:00 37.3 C 65 26 H 99 06/28/22 22:00 109/76 06/28/22 21:46 37.3 C 81 28 H 99 06/28/22 21:46 119/68 06/28/22 21:45 37.3 C 75 19 97 06/28/22 21:30 37.3 C 78 18 100 06/28/22 21:30 106/71 06/28/22 21:15 37.2 C 72 10 L 98 06/28/22 21:15 110/66 06/28/22 21:00 37.2 C 85 15 95 06/28/22 21:00 102/70 06/28/22 20:45 37.2 C 83 34 H 96 06/28/22 20:45 104/70 06/28/22 20:30 37.2 C 78 31 H 95 06/28/22 20:30 103/73 06/28/22 20:15 37.2 C 78 36 H 93 06/28/22 20:15 113/66 06/28/22 20:00 37.2 C 82 36 H 95 06/28/22 20:00 105/77 06/28/22 20:06 BiPAP, High Flow Nasal Cannula Lab & Micro Results (Past 24 Hours) RBC 3.21 M/uL (4.63-6.08) L 06/29/22 WBC 11.37 K/ul (4.8-10.8) H 06/29/22 Hgb 10.1 g/dl (14.0-18.0) L 06/29/22 Hct 33.0 % (40.1-51.0) L 06/29/22 MCV 102.8 fL (80.0-100.0) H 06/29/22 MCH 31.5 pg (25.0-34.0) 06/29/22 MCHC 30.6 g/dL (32.0-36.0) L 06/29/22 RDW Standard Deviation 78.9 fL (36.4-46.3) H 06/29/22 RDW Coefficient of Variation 22.2 % (11.5-14.5) H 06/29/22 Plt Count 215 K/uL (130-400) 06/29/22 MPV 10.7 fL (9.4-12.4) 06/29/22 Nucleated Red Blood Cells % (auto) 1.1 % 06/29 Nucleated RBC Absolute Count (auto) 0.12 K/uL (0-0) H 06/01 11/20 Na 136 mmol/L (136-145) 06/29/22 K 5.1 mmol/L (3.5-5.1) 06/29/22 Cl 88 mmol/L (98-107) L 06/29/22 CO2 41 mmol/L (21-32) H* 06/29/22 Anion Gap 7 (3-11) 06/29/22 BUN 44 mg/dl (6-23) H 06/29/22 Creatinine 1.51 mg/dl (0.6-1.4) H 06/29/22 Estimated GFR ( Amer) 52.4 ml/min 06/29/22 Estimated GFR (Non-Af Amer) 45.2 ml/min 06/29/22 BUN/Creatinine Ratio 29.1 (10-20) H 06/29/22 Glu 159 mg/dl (70-99(Fasting)) H 06/29/22 Ca 9.8 mg/dl (8.5-10.1) 06/29/22 Phosphorus Level 4.9 mg/dl (2.5-4.9) 06/29/22 Total Bilirubin 1.2 mg/dl (0.2-1.0) H 06/29/22 AST 35 U/L (13-39) 06/29/22 ALT 30 U/L (7-52) 06/29/22 Alkaline Phosphatase 225 U/L (34-104) H 06/29/22 TP 8.0 gm/dl (6.0-8.3) 06/29/22 Albumin 3.3 gm/dl (3.4-5.0) L 06/29/22 Globulin 4.7 gm/dl (2.5-4.0) H 06/29/22 Albumin/Globulin Ratio 0.7 (0.9-2) L 06/29/22 Mg 2.0 mg/dl (1.7-2.4) 06/29/22 04:04 Calcium Level 9.8 mg/dl (8.5-10.1) 06/29/22 04:04 Nehemias Test Pass 06/28/22 14:52 Microbiology 06/28/22 08:40 Acid Fast Bacilli Smear - Final Ba Lavage,Left Lingula 06/28/22 08:40 Fungal Smear - Final Ba Lavage,Left Lingula 06/28/22 08:40 Gram Stain - Final Ba Lavage,Left Lingula Diagnostic Findings (Past 24 Hours) Chest X-Ray 06/28/22 09:09 XR chest 1V portable CLINICAL HISTORY: POST BRONCH COMPARISON STUDY: Chest CT June 25, 2022. Chest radiograph June 26, 2022. FINDINGS: Dual lead left subclavian pacer is in place. There is no pneumothorax. Small right pleural effusion is noted. Extensive bilateral airspace opacities with interstitial thickening are similar to prior exam. Postoperative findings within the left shoulder are incidentally noted. IMPRESSION: 1. No pneumothorax following bronchoscopy. 2. No significant change in extensive bilateral airspace opacities and interstitial thickening. 3. Small right pleural effusion. ACT 112: Negative or not required by law. Electronically signed by: Ramiro Ponce M.D. 06/28/2022 9:42 AM Chest X-Ray 06/28/22 13:46 XR chest 1V portable HISTORY: Respiratory failure. COMPARISON: Chest 06/28/2022. FINDINGS: There is left-sided pacemaker/defibrillator. The cardiac silhouette remains mildly enlarged. There is diffuse interstitial thickening with patchy bilateral airspace opacities. Mild elevation of the right hemidiaphragm. No definite pleural effusions. IMPRESSION: No significant change in the diffuse interstitial thickening and patchy bilateral airspace opacities. ACT 112: Negative or not required by law. Electronically signed by: Reza Shanks M.D. 06/28/2022 2:[address] 06/28/22 13:46 CT head/brain wo con CLINICAL HISTORY: fall, AMS Technique: Contiguous axial CT images of the head were acquired from the base of the skull to the vertex without intravenous contrast administration. Images were viewed in brain, subdural and bone windows. Automated dose lowering techniques and/or adjustment according to patient size were utilized for this exam. Comparison: Comparison is made to CT head 12/09/2006. Findings: Areas of decreased attenuation are present in the periventricular and subcortical white matter bilaterally consistent with small vessel ischemic disease. Generalized cerebral atrophy with commensurate enlargement of the ventricles, sulci, and cisterns is also present. There is no acute intracranial hemorrhage or evidence of acute territorial infarction. No shift of the midline structures, mass effect, or extra-axial abnormalities are shown. Atheroscleroti c calcifications are present in the intracranial segments of the internal carotid arteries. There is focal encephalomalacia in the left frontal lobe. There is a 4 mm intermediate density left subdural collection. Imaged portions of the paranasal sinuses and mastoid air cells are clear. The orbits appear normal. There are no acute fractures of the calvaria or scalp swe lling. Impression: 1. No acute abnormality is seen. 2. Left subdural collection likely represents a subacute to chronic subdural hematoma, recommend 24 to 48 hour follow-up to exclude acute component. 3. 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 ACT 112: Negative or not required by law. Electronically signed by: Riely Angeles M.D. 06/28/2022 2:51 PM I & O Totals 24 Hours 06/28/22 06/29/22 06/30/22 06:59 06:59 06:59 Intake Total 1060 / 1060 70 / 70 Output Total 1999 555 / 555 Balance -940 / -940 -485 / -485 Cumulative 06/21/22 15:04 thru 06/29/22 06:00 Intake Total 4938 Output Total 9861 Balance -4923 RT Ventilator Mngmt (Last Documented) Ventilator Ordered Settings Respiratory Rate 14 06/29/22 06:15 Fraction of Inspired Oxygen 50 06/28/22 23:23 Ventilator - PT Measurements Respiratory Rate 14 End-Tidal CO2 17 Coding Level of Care Code 88099 Subseq Hosp Care l 3 Diagnoses Acute on chronic respiratory failure with hypoxia J96.21 Acute decompensated heart failure I50.9 Squamous cell carcinoma lung C34.90 Laterality: unspecified laterality ILD (interstitial lung disease) J84.9 (1) Squamous cell carcinoma lung Laterality: unspecified laterality Qualified Code(s): C34.90 - Malignant neoplasm of unspecified part of unspecified bronchus or lung
[2022-06-29] MEDS: CETIRIZINE HCL 10 MG TABLET PO SCH (09:03)
[2022-06-29] MEDS: PANTOprazole 40 MG TAB PO SCH (09:03)
[2022-06-29] MEDS: DOXYCYCLINE HYCLATE 100 MG CAP PO SCH (09:03)
[2022-06-29] MEDS: cefTRIAXone SODIUM 2,000 MG in DEXTROSE 5% 50 ML IV SCH (09:03)
[2022-06-29] MEDS: allopurinoL 100 MG TAB PO SCH (09:05)
[2022-06-29] MEDS: METOPROLOL SUCC 50MG EXT REL TAB PO SCH ×2 (09:06→20:05)
[2022-06-29] MEDS: CYANOCOBALAMIN (B-12) 100 MCG TABLET PO SCH (09:06)
[2022-06-29 09:40] LABS: Appearance Urine Clear (Clear); Bacteria Urine Automated Negative (Negative); Bilirubin Urine Negative (Negative); Blood Urine Trace (Negative); Color Urine Dark Yellow; Glucose Urine UA Negative (Negative); Ketones Urine Negative (Negative); Leukocyte Esterase Urine Trace (Negative); Nitrite Urine Negative (Negative); Protein Urine Negative (Negative); Specific Gravity Urine 1.017 (1.000-1.030); Urobilinogen Urine Negative (Negative)
--- NOTE | 2022-06-29 10:09 | XRay Report ---
XR chest 1V portable HISTORY: Respiratory failure. Follow-up. COMPARISON: Chest 06/28/2022. FINDINGS: No pneumothorax. No pleural fusions. The cortex and what remains enlarged. There is mild el evation of the right hemidiaphragm, unchanged. There is a left-sided dual-chamber pacemaker/defibrill ator. Diffuse interstitial thickening and patchy bilateral airspace opacities have slightly improved. IMPRESSION: Slight improvement in the diffuse interstitial thickening and patchy bilateral airspace opacities. ACT 112: Negative or not required by law. Electronically signed by: Reza Shanks M.D. 06/29/2022 10:07 AM
--- NOTE | 2022-06-29 10:23 | CT Scan Report ---
CT head/brain wo con CLINICAL HISTORY: Follow up on CT head 24 hours prior Technique: Contiguous axial CT images of the head were acquired from the base of the skull to the jerod sebas without intravenous contrast administration. Images were viewed in brain, [facility] Automated dose lowering techniques and/or adjustment according to patient size were utilized for this exam. Comparison: Prior CT head 06/28/2022 Findings: Areas of decreased attenuation are present in the periventricular and subcortical white matter bilate rally consistent with small vessel ischemic disease. Generalized cerebral atrophy with commensurate e nlargement of the ventricles, sulci, and cisterns is also present. There is no acute intracranial hem orrhage or evidence of acute territorial infarction. No shift of the midline structures, mass effect, or extra-axial abnormalities are shown. Atherosclerotic calcifications are present in the intracran ial segments of the internal carotid arteries. In the interval, there is near complete previously not ed left subdural collection. Redemonstration of encephalomalacia in the left frontal lobe compatible with old infarct. Imaged portions of the paranasal sinuses and mastoid air cells are clear. The orbits appear normal. There are no acute fractures of the calvaria or scalp swelling. Impression: Interval near resolution of left subdural collection seen on prior exam. No acute abnormalities are s een. ACT 112: Negative or not required by law. Electronically signed by: Riley Angeles M.D. 06/29/2022 10:22 AM
[2022-06-29] MEDS: ALBUT/IPRATROP 3MG/0.5MG NEB 3 ML VIAL NEB SCH ×2 (11:02→19:33)
--- NOTE | 2022-06-29 11:46 | Hospitalist Progress Note ---
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 Hospital course 06/21- presented to ED with oxygen saturation in 70s, required 6L oxymask on admission. Baseline of 2 L NC. Started on iv lasix 20 mg 06/22- Echo with EF 35-40%. Seen by cardio- continued on iv lasix bid. Started on Empiric Ceftriaxone/doxy for persistent leucocytosis and immunocompromised state. 06/23- Still on 5 L NC. Iv lasix increased to 20 mg tid 06/24- Worsening hypoxia to 10 L oxymask. CXR with worsening CHF. IV lasix increased to 40 q8hr 06/25- CT with pulm edema > PNA. Seen by pulm. started on BIPAP, continue iv lasix 06/26- CXR shows minimal improvement- iv lasix increased to 60 mg 06/27- Pulm plans for bronchoscopy, continue iv lasix 60 bid 06/28- patient underwent bronchoscopy. Was found on the floor unresponsive. Was found to have acute hypercapnic respiratory failure. Transferred to ICU for further care. CT head was done ; did not show any acute abnormality. Left subdural collection was seen. Follow-up in 24 to 48 hours was recommended. 06/29-overnight in the ICU, patient's mental status improved. He was on as needed BiPAP. His mentation was back to baseline. Repeat CT head was done; nterval near resolution of left subdural collection seen on prior exam. No acute abnormalities are seen. Patient was transferred to floors. Patient completed 7-day course of ceftriaxone and doxycycline. CXR 06/21- 1. Cardiomegaly and AICD with evidence of congestive failure and pulmonary edema. CXR 06/24- Cardiomegaly with progressive mixed interstitial and alveolar opacities. Findings are suggestive of pulmonary edema superimposed on chronic fibrosis. CT chest 06/25 1. Streak and motion compromised examination. 2. Cardiomegaly an AICD with evidence of congestive failure. 3. Diffuse airspace consolidation throughout both lungs likely represents pulmonary edema. This could also be seen with multifocal pneumonia and/or ARDS. Clinical correlation will be essential. 4. Right larger than left pleural effusions. 5. Again seen are changes of chronic interstitial lung disease. This cannot be compared to previous due to extensive superimposed airspace consolidation. 6. Mediastinal lymphadenopathy is increased from previous. This is likely reactive. 7. Calcified mediastinal and hilar lymph nodes are unchanged. CXR 06/26- 1. Interstitial thickening and multifocal airspace opacities, minimally improved since prior exam. The findings could reflect pulmonary edema, pneumonia or ARDS. Bronchoscopy on normal inspection bronchoscopy. BAL in lingula suggestive of possible pulmonary hemorrhage. Acute on chronic respiratory failure with hypoxia- likely multifactorial with his CHF, ILD, lung cancer Acute Hypercapnic Respiratory Failure Altered mental status 2/2 Hypercapnic Respiratory Failure Plan: -Repeat ABG shows improvement of CO2 retention. CT head showed interval near resolution of left subdural collection. Will resume his Xarelto. -Completed 7-day course of ceftriaxone and doxycycline. -We will hold off on Lasix for today given slight bump in the creatinine. -Started on duo nebs. He is also started on Solu-Medrol 125 mg every 8 hours as per pulmonology. -Continue bipap and supplemental oxygen wean off as tolerated Acute on chronic systolic heart failure - Echo with EF 35-40% -Serial x-ray shows improvement in pulmonary edema with diuresis. Squamous cell carcinoma lung - Follows with Dr. Petersen of heme onc and was seen in follow up earlier today. Chemo regimen includes gemcitabine and the carboplatin chemotherapy which was started in December 2021 - Last received chemo 06/17/22 Anemia - Recent admissions with severe anemia requiring prbc transfusions - Receiving Aranesp for chronic anemia every 3 weeks - Hgb stable >8. 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 CT chest reviewed as above CKD (chronic kidney disease), stage III - Cr uptrending today. CAD (coronary artery disease) - Stable. Continue statin, Toprol H/o DVT/PE in 2016- Continue Xarelto. Paroxysmal atrial fibrillation- Continue Toprol, xarelto. Digoxin added by cardio COPD-started on duo nebs every 6 hours and steroids Hypomagnesemia- repleted. DVT ppx: Xarelto to be resumed. Dispo: Repeat PT/OT re-evaluation ordered. Code status: Full code Admission and Anticipated Discharge Date Admission Date: June 21, 2022 Subjective Patient is seen and examined in ICU. He was sitting up on the bed. He is alert, oriented x3. He feels that his breathing has significantly improved since yesterday. Discussion of yesterday's event was done with the patient. Patient recalls reaching out for water from his bed and fell down on the floor. He denies any pain currently. He denies any headache, weakness/numbness of any body part, chest pain or abdominal pain. Review of Systems Review of Systems: All systems reviewed & are unremarkable except as noted in Subjective Physical Exam Physical Exam: General: Awake alert oriented x3. Not in any acute distress. Chest: Bilateral basal crackles present. CVS: Irregular, normal heart sounds, no murmur Abdomen: Soft, non tender, not distended, normal bowel sounds Neuro: Lethargic, doesn't respond to noxious stimuli. Extremities: trace edema Results & Data Results & Data ([facility]) Vital Signs (Past 12 Hours) Vital Signs Temp Pulse Pulse Resp BP Pulse Ox O2 Del Method 06/29/22 11:02 66 16 100 Nasal Cannula 06/29/22 09:00 36.8 C 74 37 H 144/80 H 88 L High Flow Nasal Cannula 06/29/22 08:00 36.6 C 77 19 127/83 95 06/29/22 07:17 36.6 C 81 30 H 126/87 88 L High Flow Nasal Cannula 06/29/22 06:15 36.6 C 65 14 94 06/29/22 06:00 36.7 C 67 14 96 06/29/22 06:00 14 119/69 06/29/22 05:45 36.8 C 62 14 97 06/29/22 05:30 36.8 C 62 14 95 06/29/22 05:15 36.8 C 60 14 95 06/29/22 05:01 36.8 C 60 14 93 06/29/22 05:01 119/69 06/29/22 05:00 36.8 C 66 20 93 06/29/22 04:45 36.8 C 65 13 93 06/29/22 04:30 36.8 C 70 26 H 100 06/29/22 04:15 36.8 C 62 14 100 06/29/22 04:00 36.8 C 66 14 99 06/29/22 03:45 36.7 C 62 14 100 06/29/22 03:30 36.8 C 66 18 97 06/29/22 03:15 36.8 C 64 12 96 06/29/22 03:01 97/64 L 06/29/22 03:01 36.9 C 68 14 95 06/29/22 03:00 36.9 C 76 17 93 06/29/22 02:45 36.9 C 70 14 96 06/29/22 02:30 36.9 C 73 14 96 06/29/22 02:15 36.9 C 68 14 98 06/29/22 02:00 36.9 C 70 14 99 06/29/22 02:00 104/68 06/29/22 01:45 37.0 C 82 14 99 06/29/22 01:30 37.1 C 69 20 99 06/29/22 01:15 37.1 C 68 18 99 06/29/22 01:00 37.1 C 66 14 99 06/29/22 01:00 100/57 L 06/29/22 00:45 37.1 C 70 14 99 06/29/22 00:33 112/67 06/29/22 00:33 37.1 C 77 21 94 06/29/22 00:30 37.2 C 77 14 90 06/29/22 00:15 37.2 C 63 21 100 06/29/22 00:15 98/67 L 06/29/22 00:00 37.2 C 68 14 99 06/29/22 00:00 96/67 L 06/28/22 23:45 37.2 C 74 14 100 06/28/22 23:45 14 99/59 L 06/29/22 01:52 82 O2 Flow Rate 06/29/22 11:02 5 06/29/22 09:00 6 06/29/22 08:00 06/29/22 07:17 2 06/29/22 06:15 06/29/22 06:00 06/29/22 06:00 06/29/22 05:45 06/29/22 05:30 06/29/22 05:15 06/29/22 05:01 06/29/22 05:01 06/29/22 05:00 06/29/22 04:45 06/29/22 04:30 06/29/22 04:15 06/29/22 04:00 06/29/22 03:45 06/29/22 03:30 06/29/22 03:15 06/29/22 03:01 06/29/22 03:01 06/29/22 03:00 06/29/22 02:45 06/29/22 02:30 06/29/22 02:15 06/29/22 02:00 06/29/22 02:00 06/29/22 01:45 06/29/22 01:30 06/29/22 01:15 06/29/22 01:00 06/29/22 01:00 06/29/22 00:45 06/29/22 00:33 06/29/22 00:33 06/29/22 00:30 06/29/22 00:15 06/29/22 00:15 06/29/22 00:00 06/29/22 00:00 06/28/22 23:45 06/28/22 23:45 06/29/22 01:52 Diagnostic Findings Laboratory Results WBC 11.37 K/ul (4.8-10.8) H 06/29/22 04:04 RBC 3.21 M/uL (4.63-6.08) L 06/29/22 04:04 Hgb 10.1 g/dl (14.0-18.0) L 06/29/22 04:04 POC Hgb 10.5 g/dl (14.0-18.0) L 06/28/22 14:52 Hct 33.0 % (40.1-51.0) L 06/29/22 04:04 POC Hct 31 % (42-52) L 06/28/22 14:52 MCV 102.8 fL (80.0-100.0) H 06/29/22 04:04 MCH 31.5 pg (25.0-34.0) 06/29/22 04:04 MCHC 30.6 g/dL (32.0-36.0) L 06/29/22 04:04 RDW Std Deviation 78.9 fL (36.4-46.3) H 06/29/22 04:04 RDW Coeff of Yogi 22.2 % (11.5-14.5) H 06/29/22 04:04 Plt Count 215 K/uL (130-400) 06/29/22 04:04 MPV 10.7 fL (9.4-12.4) 06/29/22 04:04 Immature Gran % (Auto) 0.6 % 06/21/22 15:42 Neut % (Auto) 93.9 % 06/21/22 15:42 Lymph % (Auto) 3.1 % 06/21/22 15:42 Dawson % (Auto) 1.1 % 06/21/22 15:42 Eos % (Auto) 1.1 % 06/21/22 15:42 Baso % (Auto) 0.2 % 06/21/22 15:42 Neut # (Auto) 12.45 K/uL (1.4-6.5) H 06/21/22 15:42 Lymph # (Auto) 0.41 K/uL (1.2-3.4) L 06/21/22 15:42 Dawson # (Auto) 0.15 K/uL (0.24-0.82) L 06/21/22 15:42 Eos # (Auto) 0.15 K/uL (0-0.50) 06/21/22 15:42 Baso # (Auto) 0.03 K/uL (0-0.2) 06/21/22 15:42 Immature Gran # (Auto) 0.08 K/uL (0.00-0.02) H 06/21/22 15:42 Absolute Nucleated RBC 0.12 K/uL (0-0) H 06/29/22 04:04 Nucleated RBC % (auto) 1.1 % 06/29/22 04:04 Anisocytosis Present 06/21/22 15:42 ESR 109 mm/hr (0-20) H 06/29/22 08:19 Sample Site R Radial 06/28/22 14:52 POC pH 7.40 (7.35-7.45) 06/28/22 14:52 POC pCO2 77 mmHg (35-46) H 06/28/22 14:52 POC pO2 78 mmHg (80-95) L 06/28/22 14:52 POC HCO3 48 virgil/L (19-24) H 06/28/22 14:52 POC Total CO2 > 40 mmol/L (24-31) H* 06/28/22 14:52 POC Base Excess 23.0 virgil/L (-9-1.8) H 06/28/22 14:52 ABG pH (Temp Correct) 7.403 (7.35-7.45) 06/28/22 14:52 ABG pCO2 (Temp Corrct 76 mmHg (35-46) H 06/28/22 14:52 POC ABG pO2 at Pt Temp 77 06/28/22 14:52 POC ABG O2 Sat 95.0 % (90-95) 06/28/22 14:52 Nehemias Test Pass 06/28/22 14:52 VBG pH 7.41 (7.36-7.41) 06/21/22 15:44 VBG pCO2 56 mmHg (38-50) H 06/21/22 15:44 VBG pO2 25 mmHg 06/21/22 15:44 VBG HCO3 36 mmol/L 06/21/22 15:44 VBG O2 Saturation < 60.0 % 06/21/22 15:44 VBG Base Excess 8.9 mEq/L 06/21/22 15:44 O2 Delivery Device BIPAP 06/28/22 14:52 POC O2 Rate 16 06/28/22 14:52 POC FiO2 60 % 06/28/22 14:52 IPAP 18 06/28/22 14:52 POC Sodium 134 mmol/L (135-144) L 06/28/22 14:52 Sodium 136 mmol/L (136-145) 06/29/22 04:04 POC Potassium 4.2 mmol/L (3.3-5.0) 06/28/22 14:52 Potassium 5.1 mmol/L (3.5-5.1) 06/29/22 04:04 Chloride 88 mmol/L (98-107) L 06/29/22 04:04 Carbon Dioxide 41 mmol/L (21-32) H* 06/29/22 04:04 Anion Gap 7 (3-11) 06/29/22 04:04 BUN 44 mg/dl (6-23) H 06/29/22 04:04 Creatinine 1.51 mg/dl (0.6-1.4) H 06/29/22 04:04 Est Cr Clr Drug Dosing 49.2 ml/min 06/29/22 04:04 Est GFR ( Amer) 52.4 ml/min 06/29/22 04:04 Est GFR (Non-Af Amer) 45.2 ml/min 06/29/22 04:04 BUN/Creatinine Ratio 29.1 (10-20) H 06/29/22 04:04 Glucose 159 mg/dl (70-99(Fasting)) H 06/29/22 04:04 Calcium 9.8 mg/dl (8.5-10.1) 06/29/22 04:04 Phosphorus 4.9 mg/dl (2.5-4.9) 06/29/22 04:04 Magnesium 2.0 mg/dl (1.7-2.4) 06/29/22 04:04 Total Bilirubin 1.2 mg/dl (0.2-1.0) H 06/29/22 04:04 AST 35 U/L (13-39) 06/29/22 04:04 ALT 30 U/L (7-52) 06/29/22 04:04 Alkaline Phosphatase 225 U/L (34-104) H 06/29/22 04:04 Troponin I High Sens 22.5 pg/ml (0-20) H 06/21/22 15:42 C-Reactive Protein 13.79 mg/dl (0-0.5) H 06/29/22 08:19 B-Natriuretic Peptide 489 pg/ml (0-100) H 06/24/22 06:05 Total Protein 8.0 gm/dl (6.0-8.3) 06/29/22 04:04 Albumin 3.3 gm/dl (3.4-5.0) L 06/29/22 04:04 Globulin 4.7 gm/dl (2.5-4.0) H 06/29/22 04:04 Albumin/Globulin Ratio 0.7 (0.9-2) L 06/29/22 04:04 Procalcitonin 0.59 ng/ml (0-0.5) H 06/29/22 04:04 Urine Color Dark Yellow 06/29/22 08:50 Urine Appearance Clear (Clear) 06/29/22 08:50 Urine pH 5.0 (4.5-7.5) 06/29/22 08:50 Ur Specific Nebo 1.017 (1.000-1.030) 06/29/22 08:50 Urine Protein Negative (Negative) 06/29/22 08:50 Urine Glucose (UA) Negative (Negative) 06/29/22 08:50 Urine Ketones Negative (Negative) 06/29/22 08:50 Urine Blood Trace (Negative) H 06/29/22 08:50 Urine Nitrite Negative (Negative) 06/29/22 08:50 Urine Bilirubin Negative (Negative) 06/29/22 08:50 Urine Urobilinogen Negative (Negative) 06/29/22 08:50 Ur Leukocyte Esterase Trace (Negative) H 06/29/22 08:50 Urine WBC (Auto) 1-5 /hpf (0-5) 06/29/22 08:50 Urine RBC (Auto) 10-30 /hpf (0-4) H 06/29/22 08:50 U Hyaline Cast (Auto) 5-10 /lpf (0-5) H 06/29/22 08:50 U Epithel Cells (Auto) 5-10 /lpf (0-5) H 06/29/22 08:50 Urine Bacteria (Auto) Negative (Negative) 06/29/22 08:50 Fluid Neutrophils % 30 % 06/28/22 08:40 Fluid Lymphocytes % 6 % 06/28/22 08:40 Fluid Eosinophils % 6 % 06/28/22 08:40 Fluid Basophils % 1 % 06/28/22 08:40 Fl Monocyt/Macrophag % 57 % 06/28/22 08:40 Fluid Comment 06/28/22 08:40 Nasal Screen MRSA (PCR) Negative (Negative) 06/25/22 11:14 SARS-CoV-2 (PCR) NEGATIVE (Negative) 06/21/22 15:55 Influ A Molecular Assay Negative (Negative) 06/25/22 11:14 Influ B Molecular Assay Negative (Negative) 06/25/22 11:[address] 06/25/22 07:45 CT SCAN OF THE CHEST WITHOUT IV CONTRAST CLINICAL HISTORY: Hypoxia. Congestive heart failure. COMPARISON STUDY: Chest x-ray dated 06/24/2022. A chest CT dated 11/20/2019. TECHNIQUE: CT scan of the thorax was performed from the thoracic inlet to the upper abdomen. Images are reviewed in the axial, sagittal, and coronal planes. IV contrast was not administered for this examination as per the referring clinician. A dose lowering technique was utilized adhering to the principles of ALARA. The examination is compromised by motion artifact, as well as by streak artifact from the arms which could not be elevated above the chest. CT DOSE: 1076.19 mGy.cm FINDINGS: Thyroid: Mildly enlarged and heterogeneous. Thoracic aorta: The thoracic aorta is normal in caliber and demonstrates standard 3-vessel arch anatomy. Heart: A cardiac AICD is present in the left chest wall. The heart is enlarged noting trace pericardial effusion. The coronary arteries are densely calcified. Lungs and pleural spaces: Again seen are changes of chronic interstitial lung disease. There is diffuse subpleural reticulation. Traction bronchiectasis is noted in the lower lobes. No honeycombing is seen. Intralobular septal thickening is seen throughout both lungs. There is diffuse airspace consolidation throughout both lungs, with mild spurring at the apices. There are small pleural effusions, right larger than left with associated atelectasis. The trachea and central airways are clear. There is no pneumothorax. Mediastinum: There are numerous mildly enlarged mediastinal lymph nodes which measure up to 14 mm short axis. Several containing calcifications. Violette: There are calcified right hilar lymph nodes. Note that the violette are not well assessed without IV contrast. Axillae: There is no axillary lymphadenopathy. Upper abdomen: Calcified granulomas are noted in the liver and spleen. Partially visualized upper abdominal viscera is within normal limits. Skeletal structures: The skeletal structures are osteopenic. Degenerative change is noted in the shoulders and thoracic spine. No lytic or blastic bony lesions are seen. Soft tissues: Gynecomastia is noted. IMPRESSION: 1. Streak and motion compromised examination. 2. Cardiomegaly an AICD with evidence of congestive failure. 3. Diffuse airspace consolidation throughout both lungs likely represents pulmonary edema. This could also be seen with multifocal pneumonia and/or ARDS. Clinical correlation will be essential. 4. Right larger than left pleural effusions. 5. Again seen are changes of chronic interstitial lung disease. This cannot be compared to previous due to extensive superimposed airspace consolidation. 6. Mediastinal lymphadenopathy is increased from previous. This is likely reactive. 7. Calcified mediastinal and hilar lymph nodes are unchanged. ACT 112: Negative or not required by law. Electronically signed by: Be Domínguez M.D. 06/25/2022 10:07 AM Chest X-Ray 06/29/22 07:00 XR chest 1V portable HISTORY: Respiratory failure. Follow-up. COMPARISON: Chest 06/28/2022. FINDINGS: No pneumothorax. No pleural fusions. The cortex and what remains enlarged. There is mild elevation of the right hemidiaphragm, unchanged. There is a left-sided dual-chamber pacemaker/defibrillator. Diffuse interstitial thickening and patchy bilateral airspace opacities have slightly improved. IMPRESSION: Slight improvement in the diffuse interstitial thickening and patchy bilateral airspace opacities. ACT 112: Negative or not required by law. Electronically signed by: Reza Shanks M.D. 06/29/2022 10:[address] 06/29/22 08:17 CT head/brain wo con CLINICAL HISTORY: Follow up on CT head 24 hours prior Technique: Contiguous axial CT images of the head were acquired from the base of the skull to the vertex without intravenous contrast administration. Images were viewed in brain, subdural and bone windows. Automated dose lowering techniques and/or adjustment according to patient size were utilized for this exam. Comparison: Prior CT head 06/28/2022 Findings: Areas of decreased attenuation are present in the periventricular and subcortical white matter bilaterally consistent with small vessel ischemic disease. Generalized cerebral atrophy with commensurate enlargement of the ventricles, sulci, and cisterns is also present. There is no acute intracranial hemorrhage or evidence of acute territorial infarction. No shift of the midline structures, mass effect, or extra-axial abnormalities are shown. Atherosclerotic calcifications are present in the intracranial segments of the internal carotid arteries. In the interval, there is near complete previously noted left subdural collection. Redemonstration of encephalomalacia in the left frontal lobe compatible with old infarct. Imaged portions of the paranasal sinuses and mastoid air cells are clear. The orbits appear normal. There are no acute fractures of the calvaria or scalp swelling. Impression: Interval near resolution of left subdural collection seen on prior exam. No acute abnormalities are seen. ACT 112: Negative or not required by law. Electronically signed by: Riley Angeles M.D. 06/29/2022 10:22 AM (1) Anemia Anemia type: unspecified type Qualified Code(s): D64.9 - Anemia, unspecified
--- NOTE | 2022-06-29 12:06 | Communication Note ---
Date of Service: June 29, 2022 In the setting of the bronchoscopy findings concerning for alveolar hemorrhage, we will continue to hold with [facility] for now. Discussed with pulmonology.
[2022-06-29] MEDS: CHOLECALCIFEROL 1,000 UNITS 25 MCG TAB PO SCH (12:33)
[2022-06-29] MEDS: FOLIC ACID 1 MG TAB PO SCH (12:34)
[2022-06-29] MEDS: MAGNESIUM OXIDE 400 MG TAB PO SCH ×2 (12:34→22:50)
[2022-06-29] MEDS: DIGOXIN 0.125 MG TAB PO SCH (16:55)
[2022-06-29] MEDS: ATORVASTATIN 40 MG TAB PO SCH (20:04)
[2022-06-30] MEDS: ALBUT/IPRATROP 3MG/0.5MG NEB 3 ML VIAL NEB SCH ×5 (00:47→19:13)
[2022-06-30] MEDS: methylPREDNISolone 125 MG in SYRINGE 0 ML IV SCH (05:22)
[2022-06-30 06:35] LABS: Hemoglobin 9.1 g/dl (14.0-18.0); Mean Corpuscular Hemoglobin 31.2 pg (25.0-34.0); Mean Corpuscular Hgb Conc 30.3 g/dL (32.0-36.0); Mean Corpuscular Volume 102.7 fL (80.0-100.0); Mean Platelet Volume 11.3 fL (9.4-12.4); Nucleated RBC # (auto) 0.11 K/uL (0-0); Nucleated RBC % (auto) 0.7 %; Platelet Count 254 K/uL (130-400); RDW Standard Deviation 80.6 fL (36.4-46.3); Red Blood Count 2.92 M/uL (4.63-6.08); White Blood Count 15.72 K/ul (4.8-10.8)
[2022-06-30 07:08] LABS: Albumin Globulin Ratio 0.7 (0.9-2); Albumin Level 3.1 gm/dl (3.4-5.0); BUN Creatinine Ratio 33.2 (10-20); Bilirubin,Total 0.9 mg/dl (0.2-1.0); Calcium 9.3 mg/dl (8.5-10.1); Creatinine Clr Calc Pharmacy 39.8 ml/min; Est GFR (African American) 36.8 ml/min; Est GFR (Non-African American) 31.8 ml/min; Globulin 4.2 gm/dl (2.5-4.0); Magnesium 2.2 mg/dl (1.7-2.4); Phosphorus 4.9 mg/dl (2.5-4.9); Potassium 4.8 mmol/L (3.5-5.1); Total Protein 7.3 gm/dl (6.0-8.3)
--- NOTE | 2022-06-30 09:05 | Pulmonology Progress Note ---
Date of Service June 30, 2022 Assessment & Plan (1) Acute on chronic respiratory failure with hypoxia: (2) Acute decompensated heart failure: (3) Squamous cell carcinoma lung: Laterality: unspecified laterality Qualified Code(s): C34.90 - Malignant neoplasm of unspecified part of unspecified bronchus or lung (4) ILD (interstitial lung disease): Plan Impression: 71-year-old male with a history of interstitial lung disease and newly diagnosed squamous cell carcinoma of the lung metastatic to the liver on systemic chemotherapy. He developed progressive hypoxemic respiratory failure w ith diffuse pulm infiltrates and bronchoscopy was performed which revealed BAL findings consistent with alveolar hemorrhage. Cytology was negative. He has been placed on empiric steroids and appears to be improving Recommendations: 1. Pulmonary hemorrhage: Await serologies but suspect this may be related to chemotherapy and anticoagulation. Hold anticoagulation for now. We will transition prednisone to 40 mg a day. Will place on Bactrim prophylaxis 1 double strength tablet every Monday, Monday, and Monday until prednisone dose goes below 20 mg a day. Steroids can be tapered by 10 mg every week until off. He will need to follow-up with his outpatient fixed assets accountant, Dr. Lopez with a follow-up CT scan in 4 to 6 weeks 2. Metastatic squamous cell carcinoma the lung. No evidence of recurrent malignancy on bronchoscopy 3. Interstitial lung disease: Unclear outpatient work-up at this point time. The patient's not really candidate for surgical lung biopsy at this point time 4. COPD: Patient's not bronchospastic currently 5. Patient is completed a course of antibiotics for possible pneumonia. Cultures are negative. No indication for additional antibiotics currently. 6. Recommend out of bed to chair as tolerated and ambulate as tolerated. Patient refusing physical therapy. I advised him that he needs to be compliant with therapy to see whether or not he is trying to go home. Occupational Therapy is recommending SNF rehab versus 24/ care at home. Admission and Anticipated Discharge Date Admission Date: June 21, 2022 Subjective Patient seen and examined. EMR reviewed. Patient states that he is doing better. His oxygen requirement continues to improve. He is occasionally coughing but not really bringing up any phlegm. He is not had any hemoptysis. Denies fevers chills or night sweats. He is tolerating diet without difficulty. He has not really been very mobile. He feels he is well enough to consider going home. Review of Systems Review of Systems: All systems reviewed & are unremarkable except as noted in Subjective Physical Exam Constitutional: WD/WN, vitals as above Neck: trachea midline, no thyromegaly Respiratory: normal respiratory effort, lungs clear to auscultation no respiratory distress, no labored breathing and not tachypneic Auscultation: + diminished lung sounds, + crackles and + rhonchi; no wheezes Cardiovascular: RRR, no murmur, no edema Gastrointestinal (Abdomen): normal bowel sounds, soft, nontender, no hepatosplenomegaly Musculoskeletal: Extremities: extremities normal to inspection Skin: no rashes, warm and dry Lymphatic: no cervical lymphadenopathy Results & Data Results & Data ([facility]) Vital Signs (Past 12 Hours) Vital Signs Temp Pulse Pulse Resp BP BP Pulse Ox 06/30/22 07:42 36.4 C L 51 L 18 100/64 93 06/30/22 07:15 70 20 93 06/30/22 04:11 36.5 C 67 20 92/58 L 100 06/30/22 00:47 68 34 H 96 06/30/22 00:31 98 06/29/22 22:45 75 33 H 95 06/29/22 22:47 36.2 C L 75 18 100/67 97 O2 Del Method O2 Flow Rate 06/30/22 07:42 Nasal Cannula 3 06/30/22 07:15 Nasal Cannula 3 06/30/22 04:11 Nasal Cannula 4 06/30/22 00:47 BiPAP 5 06/30/22 00:31 High Flow Nasal Cannula 4 06/29/22 22:45 5 06/29/22 22:47 BiPAP Laboratory Results 06/30/22 05:32 06/30/22 05:32 Cytology and surgical biopsies from bronchoscopy negative for malignancy Cultures from bronchoscopy no growth to date. PJP PCR currently pending. Diagnostic Findings No new imaging PG Care Time/CCT Total # of Minutes Spent Total Time Spent with Patient: Total time spent is greater than 50% in coordination of care (as documented) at patient's floor/unit and/or counseling patient: Coding Level of Care Code 53015 Subseq Hosp Care Lvl 2 Diagnoses Acute on chronic respiratory failure with hypoxia J96.21 Acute decompensated heart failure I50.9 Squamous cell carcinoma lung C34.90 Laterality: unspecified laterality ILD (interstitial lung disease) J84.9
[2022-06-30] MEDS: CETIRIZINE HCL 10 MG TABLET PO SCH (09:10)
[2022-06-30] MEDS: PANTOprazole 40 MG TAB PO SCH (09:10)
[2022-06-30] MEDS: METOPROLOL SUCC 50MG EXT REL TAB PO SCH ×2 (09:10→20:12)
[2022-06-30] MEDS: allopurinoL 100 MG TAB PO SCH (09:10)
[2022-06-30] MEDS: CYANOCOBALAMIN (B-12) 100 MCG TABLET PO SCH (09:11)
[2022-06-30] MEDS: predniSONE 20 MG TAB PO SCH (10:18)
[2022-06-30] MEDS: FOLIC ACID 1 MG TAB PO SCH (12:15)
[2022-06-30] MEDS: CHOLECALCIFEROL 1,000 UNITS 25 MCG TAB PO SCH (12:15)
[2022-06-30] MEDS: MAGNESIUM OXIDE 400 MG TAB PO SCH ×2 (12:19→22:19)
--- NOTE | 2022-06-30 14:32 | Hospitalist Progress Note ---
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 Hospital course 06/21- presented to ED with oxygen saturation in 70s, required 6L oxymask on admission. Baseline of 2 L NC. Started on iv lasix 20 mg 06/22- Echo with EF 35-40%. Seen by cardio- continued on iv lasix bid. Started on Empiric Ceftriaxone/doxy for persistent leucocytosis and immunocompromised state. 06/23- Still on 5 L NC. Iv lasix increased to 20 mg tid 06/24- Worsening hypoxia to 10 L oxymask. CXR with worsening CHF. IV lasix increased to 40 q8hr 06/25- CT with pulm edema > PNA. Seen by pulm. started on BIPAP, continue iv lasix 06/26- CXR shows minimal improvement- iv lasix increased to 60 mg 06/27- Pulm plans for bronchoscopy, continue iv lasix 60 bid 06/28- patient underwent bronchoscopy. Was found on the floor unresponsive. Was found to have acute hypercapnic respiratory failure. Transferred to ICU for further care. CT head was done ; did not show any acute abnormality. Left subdural collection was seen. Follow-up in 24 to 48 hours was recommended. 06/29-overnight in the ICU, patient's mental status improved. He was on as needed BiPAP. His mentation was back to baseline. Repeat CT head was done; nterval near resolution of left subdural collection seen on prior exam. No acute abnormalities are seen. Patient was transferred to floors. Patient completed 7-day course of ceftriaxone and doxycycline. CXR 06/21- 1. Cardiomegaly and AICD with evidence of congestive failure and pulmonary edema. CXR 06/24- Cardiomegaly with progressive mixed interstitial and alveolar opacities. Findings are suggestive of pulmonary edema superimposed on chronic fibrosis. CT chest 06/25 1. Streak and motion compromised examination. 2. Cardiomegaly an AICD with evidence of congestive failure. 3. Diffuse airspace consolidation throughout both lungs likely represents pulmonary edema. This could also be seen with multifocal pneumonia and/or ARDS. Clinical correlation will be essential. 4. Right larger than left pleural effusions. 5. Again seen are changes of chronic interstitial lung disease. This cannot be compared to previous due to extensive superimposed airspace consolidation. 6. Mediastinal lymphadenopathy is increased from previous. This is likely reactive. 7. Calcified mediastinal and hilar lymph nodes are unchanged. CXR 06/26- 1. Interstitial thickening and multifocal airspace opacities, minimally improved since prior exam. The findings could reflect pulmonary edema, pneumonia or ARDS. Bronchoscopy on normal inspection bronchoscopy. BAL in lingula suggestive of possible pulmonary hemorrhage. Acute on chronic respiratory failure with hypoxia- likely multifactorial with his CHF, ILD, lung cancer Acute Hypercapnic Respiratory Failure Altered mental status 2/2 Hypercapnic Respiratory Failure Plan: Patient is status post 7 days of antibiotics. -We will continue on duo nebs every 6 hours. Prednisone as per pulmonology; currently on 40 mg once daily. Plan is to taper it 10 mg every week. He is also started on Bactrim Monday and Monday for PCP prophylaxis while on steroids. -Holding off on Lasix currently due to increase in his creatinine. He appears to be euvolemic presently. -Plan to start heparin ppx for DVT tomorrow given his bronchoscopy findings. -Continue bipap and supplemental oxygen wean off as tolerated Acute on chronic systolic heart failure - Echo with EF 35-40% -Serial x-ray shows improvement in pulmonary edema with diuresis. Squamous cell carcinoma lung - Follows with Dr. Petersen of heme onc and was seen in follow up earlier today. Chemo regimen includes gemcitabine and the carboplatin chemotherapy which was started in December 2021 - Last received chemo 06/17/22 Anemia - Recent admissions with severe anemia requiring prbc transfusions - Receiving Aranesp for chronic anemia every 3 weeks - Hgb stable >8. 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 CT chest reviewed as above CKD (chronic kidney disease), stage III - Cr uptrending today. CAD (coronary artery disease) - Stable. Continue statin, Toprol H/o DVT/PE in 2016- Xarelto on hold due to pulmonary hemorrage. will restart heparin dvt ppx from tomorrow Paroxysmal atrial fibrillation- Continue Toprol, Digoxin added by cardio. Xarelto on hold COPD-started on duo nebs every 6 hours and steroids Hypomagnesemia- repleted. DVT ppx: Heparin to be started tomorrow. Dispo: Repeat PT/OT re-evaluation ordered. Code status: Full code Admission and Anticipated Discharge Date Admission Date: June 21, 2022 Subjective Patient seen in the morning and in afternoon. Patient is much more alert, oriented today. He said he was able to tolerate BiPAP well overnight. He does complain of increased coughing; is bringing out minimal phlegm. Telemetry shows atrial fibrillation with PVCs; rate well controlled. Review of Systems Review of Systems: All systems reviewed & are unremarkable except as noted in Subjective Physical Exam Physical Exam: General: Awake alert oriented x3. Not in any acute distress. Chest: Bilateral basal crackles present. CVS: Irregular, normal heart sounds, no murmur Abdomen: Soft, non tender, not distended, normal bowel sounds Neuro: Alert, oriented x3. Extremities: trace edema Results & Data Results & Data ([facility]) Vital Signs (Past 12 Hours) Vital Signs Temp Pulse Resp BP Pulse Ox O2 Del Method O2 Flow Rate 06/30/22 12:49 78 22 92 Nasal Cannula 3 06/30/22 11:10 36.5 C 70 18 102/64 99 Nasal Cannula 3 06/30/22 07:42 36.4 C L 51 L 18 100/64 93 Nasal Cannula 3 06/30/22 07:15 70 20 93 Nasal Cannula 3 06/30/22 04:11 36.5 C 67 20 92/58 L 100 Nasal Cannula 4 Diagnostic Findings Laboratory Results WBC 15.72 K/ul (4.8-10.8) H 06/30/22 05:32 RBC 2.92 M/uL (4.63-6.08) L 06/30/22 05:32 Hgb 9.1 g/dl (14.0-18.0) L 06/30/22 05:32 POC Hgb 10.5 g/dl (14.0-18.0) L 06/28/22 14:52 Hct 30.0 % (40.1-51.0) L 06/30/22 05:32 POC Hct 31 % (42-52) L 06/28/22 14:52 MCV 102.7 fL (80.0-100.0) H 06/30/22 05:32 MCH 31.2 pg (25.0-34.0) 06/30/22 05:32 MCHC 30.3 g/dL (32.0-36.0) L 06/30/22 05:32 RDW Std Deviation 80.6 fL (36.4-46.3) H 06/30/22 05:32 RDW Coeff of Yogi 22.0 % (11.5-14.5) H 06/30/22 05:32 Plt Count 254 K/uL (130-400) 06/30/22 05:32 MPV 11.3 fL (9.4-12.4) 06/30/22 05:32 Immature Gran % (Auto) 0.6 % 06/21/22 15:42 Neut % (Auto) 93.9 % 06/21/22 15:42 Lymph % (Auto) 3.1 % 06/21/22 15:42 [place] % (Auto) 1.1 % 06/21/22 15:42 Eos % (Auto) 1.1 % 06/21/22 15:42 Baso % (Auto) 0.2 % 06/21/22 15:42 Neut # (Auto) 12.45 K/uL (1.4-6.5) H 06/21/22 15:42 Lymph # (Auto) 0.41 K/uL (1.2-3.4) L 06/21/22 15:42 [place] # (Auto) 0.15 K/uL (0.24-0.82) L 06/21/22 15:42 Eos # (Auto) 0.15 K/uL (0-0.50) 06/21/22 15:42 Baso # (Auto) 0.03 K/uL (0-0.2) 06/21/22 15:42 Immature Gran # (Auto) 0.08 K/uL (0.00-0.02) H 06/21/22 15:42 Absolute Nucleated RBC 0.11 K/uL (0-0) H 06/30/22 05:32 Nucleated RBC % (auto) 0.7 % 06/30/22 05:32 Anisocytosis Present 06/21/22 15:42 ESR 109 mm/hr (0-20) H 06/29/22 08:19 Sample Site R Radial 06/28/22 14:52 POC pH 7.40 (7.35-7.45) 06/28/22 14:52 POC pCO2 77 mmHg (35-46) H 06/28/22 14:52 POC pO2 78 mmHg (80-95) L 06/28/22 14:52 POC HCO3 48 virgil/L (19-24) H 06/28/22 14:52 POC Total CO2 > 40 mmol/L (24-31) H* 06/28/22 14:52 POC Base Excess 23.0 virigl/L (-9-1.8) H 06/28/22 14:52 ABG pH (Temp Correct) 7.403 (7.35-7.45) 06/28/22 14:52 ABG pCO2 (Temp Corrct 76 mmHg (35-46) H 06/28/22 14:52 POC ABG pO2 at Pt Temp 77 06/28/22 14:52 POC ABG O2 Sat 95.0 % (90-95) 06/28/22 14:52 Nehemias Test Pass 06/28/22 14:52 VBG pH 7.41 (7.36-7.41) 06/21/22 15:44 VBG pCO2 56 mmHg (38-50) H 06/21/22 15:44 VBG pO2 25 mmHg 06/21/22 15:44 VBG HCO3 36 mmol/L 06/21/22 15:44 VBG O2 Saturation < 60.0 % 06/21/22 15:44 VBG Base Excess 8.9 mEq/L 06/21/22 15:44 O2 Delivery Device BIPAP 06/28/22 14:52 POC O2 Rate 16 06/28/22 14:52 POC FiO2 60 % 06/28/22 14:52 IPAP 18 06/28/22 14:52 POC Sodium 134 mmol/L (135-144) L 06/28/22 14:52 Sodium 134 mmol/L (136-145) L 06/30/22 05:32 POC Potassium 4.2 mmol/L (3.3-5.0) 06/28/22 14:52 Potassium 4.8 mmol/L (3.5-5.1) 06/30/22 05:32 Chloride 86 mmol/L (98-107) L 06/30/22 05:32 Carbon Dioxide 40 mmol/L (21-32) H 06/30/22 05:32 Anion Gap 8 (3-11) 06/30/22 05:32 BUN 67 mg/dl (6-23) H D 06/30/22 05:32 Creatinine 2.02 mg/dl (0.6-1.4) H D 06/30/22 05:32 Est Cr Clr Drug Dosing 39.8 ml/min 06/30/22 05:32 Est GFR ( Amer) 36.8 ml/min 06/30/22 05:32 Est GFR (Non-Af Amer) 31.8 ml/min 06/30/22 05:32 BUN/Creatinine Ratio 33.2 (10-20) H 06/30/22 05:32 Glucose 148 mg/dl (70-99(Fasting)) H 06/30/22 05:32 Calcium 9.3 mg/dl (8.5-10.1) 06/30/22 05:32 Phosphorus 4.9 mg/dl (2.5-4.9) 06/30/22 05:32 Magnesium 2.2 mg/dl (1.7-2.4) 06/30/22 05:32 Total Bilirubin 0.9 mg/dl (0.2-1.0) 06/30/22 05:32 AST 34 U/L (13-39) 06/30/22 05:32 ALT 27 U/L (7-52) 06/30/22 05:32 Alkaline Phosphatase 205 U/L (34-104) H 06/30/22 05:32 Troponin I High Sens 22.5 pg/ml (0-20) H 06/21/22 15:42 C-Reactive Protein 13.79 mg/dl (0-0.5) H 06/29/22 08:19 B-Natriuretic Peptide 489 pg/ml (0-100) H 06/24/22 06:05 Total Protein 7.3 gm/dl (6.0-8.3) 06/30/22 05:32 Albumin 3.1 gm/dl (3.4-5.0) L 06/30/22 05:32 Globulin 4.2 gm/dl (2.5-4.0) H 06/30/22 05:32 Albumin/Globulin Ratio 0.7 (0.9-2) L 06/30/22 05:32 Procalcitonin 0.59 ng/ml (0-0.5) H 06/29/22 04:04 Urine Color Dark Yellow 06/29/22 08:50 Urine Appearance Clear (Clear) 06/29/22 08:50 Urine pH 5.0 (4.5-7.5) 06/29/22 08:50 Ur Specific [place] 1.017 (1.000-1.030) 06/29/22 08:50 Urine Protein Negative (Negative) 06/29/22 08:50 Urine Glucose (UA) Negative (Negative) 06/29/22 08:50 Urine Ketones Negative (Negative) 06/29/22 08:50 Urine Blood Trace (Negative) H 06/29/22 08:50 Urine Nitrite Negative (Negative) 06/29/22 08:50 Urine Bilirubin Negative (Negative) 06/29/22 08:50 Urine Urobilinogen Negative (Negative) 06/29/22 08:50 Ur Leukocyte Esterase Trace (Negative) H 06/29/22 08:50 Urine WBC (Auto) 1-5 /hpf (0-5) 06/29/22 08:50 Urine RBC (Auto) 10-30 /hpf (0-4) H 06/29/22 08:50 U Hyaline Cast (Auto) 5-10 /lpf (0-5) H 06/29/22 08:50 U Epithel Cells (Auto) 5-10 /lpf (0-5) H 06/29/22 08:50 Urine Bacteria (Auto) Negative (Negative) 06/29/22 08:50 Fluid Neutrophils % 30 % 06/28/22 08:40 Fluid Lymphocytes % 6 % 06/28/22 08:40 Fluid Eosinophils % 6 % 06/28/22 08:40 Fluid Basophils % 1 % 06/28/22 08:40 Fl Monocyt/Macrophag % 57 % 06/28/22 08:40 Fluid Comment 06/28/22 08:40 Nasal Screen MRSA (PCR) Negative (Negative) 06/25/22 11:14 SARS-CoV-2 (PCR) NEGATIVE (Negative) 06/21/22 15:55 Influ A Molecular Assay Negative (Negative) 06/25/22 11:14 Influ B Molecular Assay Negative (Negative) 06/25/22 11:[address] 06/25/22 07:45 CT SCAN OF THE CHEST WITHOUT IV CONTRAST CLINICAL HISTORY: Hypoxia. Congestive heart failure. COMPARISON STUDY: Chest x-ray dated 06/24/2022. A chest CT dated 11/20/2019. TECHNIQUE: CT scan of the thorax was performed from the thoracic inlet to the upper abdomen. Images are reviewed in the axial, sagittal, and coronal planes. IV contrast was not administered for this examination as per the referring clinician. A dose lowering technique was utilized adhering to the principles of ALARA. The examination is compromised by motion artifact, as well as by streak artifact from the arms which could not be elevated above the chest. CT DOSE: 1076.19 mGy.cm FINDINGS: Thyroid: Mildly enlarged and heterogeneous. Thoracic aorta: The thoracic aorta is normal in caliber and demonstrates standard 3-vessel arch anatomy. Heart: A cardiac AICD is present in the left chest wall. The heart is enlarged noting trace pericardial effusion. The coronary arteries are densely calcified. Lungs and pleural spaces: Again seen are changes of chronic interstitial lung disease. There is diffuse subpleural reticulation. Traction bronchiectasis is noted in the lower lobes. No honeycombing is seen. Intralobular septal thickening is seen throughout both lungs. There is diffuse airspace consolidation throughout both lungs, with mild spurring at the apices. There are small pleural effusions, right larger than left with associated atelectasis. The trachea and central airways are clear. There is no pneumothorax. Mediastinum: There are numerous mildly enlarged mediastinal lymph nodes which measure up to 14 mm short axis. Several containing calcifications. [place]: There are calcified right hilar lymph nodes. Note that the violette are not well assessed without IV contrast. Axillae: There is no axillary lymphadenopathy. Upper abdomen: Calcified granulomas are noted in the liver and spleen. Partially visualized upper abdominal viscera is within normal limits. Skeletal structures: The skeletal structures are osteopenic. Degenerative change is noted in the shoulders and thoracic spine. No lytic or blastic bony lesions are seen. Soft tissues: Gynecomastia is noted. IMPRESSION: 1. Streak and motion compromised examination. 2. Cardiomegaly an AICD with evidence of congestive failure. 3. Diffuse airspace consolidation throughout both lungs likely represents pulmonary edema. This could also be seen with multifocal pneumonia and/or ARDS. Clinical correlation will be essential. 4. Right larger than left pleural effusions. 5. Again seen are changes of chronic interstitial lung disease. This cannot be compared to previous due to extensive superimposed airspace consolidation. 6. Mediastinal lymphadenopathy is increased from previous. This is likely reactive. 7. Calcified mediastinal and hilar lymph nodes are unchanged. ACT 112: Negative or not required by law. Electronically signed by: Be Domínguez M.D. 06/25/2022 10:07 AM Chest X-Ray 06/29/22 07:00 XR chest 1V portable HISTORY: Respiratory failure. Follow-up. COMPARISON: Chest 06/28/2022. FINDINGS: No pneumothorax. No pleural fusions. The cortex and what remains enlarged. There is mild elevation of the right hemidiaphragm, unchanged. There is a left-sided dual-chamber pacemaker/defibrillator. Diffuse interstitial thickening and patchy bilateral airspace opacities have slightly improved. IMPRESSION: Slight improvement in the diffuse interstitial thickening and patchy bilateral airspace opacities. ACT 112: Negative or not required by law. Electronically signed by: Reza Shanks M.D. 06/29/2022 10:[address] 06/29/22 08:17 CT head/brain wo con CLINICAL HISTORY: Follow up on CT head 24 hours prior Technique: Contiguous axial CT images of the head were acquired from the base of the skull to the vertex without intravenous contrast administration. Images were viewed in brain, subdural and bone windows. Automated dose lowering techniques and/or adjustment according to patient size were utilized for this exam. Comparison: Prior CT head 06/28/2022 Findings: Areas of decreased attenuation are present in the periventricular and subcortical white matter bilaterally consistent with small vessel ischemic disease. Generalized cerebral atrophy with commensurate enlargement of the ventricles, sulci, and cisterns is also present. There is no acute intracranial hemorrhage or evidence of acute territorial infarction. No shift of the midline structures, mass effect, or extra-axial abnormalities are shown. Atherosclerotic calcifications are present in the intracranial segments of the internal carotid arteries. In the interval, there is near complete previously noted left subdural collection. Redemonstration of encephalomalacia in the left frontal lobe compatible with old infarct. Imaged portions of the paranasal sinuses and mastoid air cells are clear. The orbits appear normal. There are no acute fractures of the calvaria or scalp swelling. Impression: Interval near resolution of left subdural collection seen on prior exam. No acute abnormalities are seen. ACT 112: Negative or not required by law. Electronically signed by: Riley Angeles M.D. 06/29/2022 10:22 AM (1) Anemia Anemia type: unspecified type Qualified Code(s): D64.9 - Anemia, unspecified
[2022-06-30] MEDS: DIGOXIN 0.125 MG TAB PO SCH (17:10)
[2022-06-30] MEDS: ATORVASTATIN 40 MG TAB PO SCH (20:12)
[2022-07-01] MEDS: ALBUT/IPRATROP 3MG/0.5MG NEB 3 ML VIAL NEB SCH ×4 (01:07→19:13)
[2022-07-01 06:48] LABS: Hematocrit (blood only) 31.1 % (40.1-51.0); Hemoglobin 9.5 g/dl (14.0-18.0); Mean Corpuscular Hemoglobin 31.3 pg (25.0-34.0); Mean Corpuscular Hgb Conc 30.5 g/dL (32.0-36.0); Mean Corpuscular Volume 102.3 fL (80.0-100.0); Mean Platelet Volume 11.2 fL (9.4-12.4); Nucleated RBC # (auto) 0.11 K/uL (0-0); Nucleated RBC % (auto) 0.8 %; Platelet Count 278 K/uL (130-400); RDW Coefficient of Variation 22.4 % (11.5-14.5); RDW Standard Deviation 80.4 fL (36.4-46.3); Red Blood Count 3.04 M/uL (4.63-6.08); White Blood Count 14.24 K/ul (4.8-10.8)
[2022-07-01 07:36] LABS: Albumin Globulin Ratio 0.8 (0.9-2); Albumin Level 3.3 gm/dl (3.4-5.0); BUN Creatinine Ratio 36.9 (10-20); Bilirubin,Total 0.8 mg/dl (0.2-1.0); Calcium 9.4 mg/dl (8.5-10.1); Creatinine Clr Calc Pharmacy 33.5 ml/min; Est GFR (African American) 32.9 ml/min; Est GFR (Non-African American) 28.3 ml/min; Globulin 4.2 gm/dl (2.5-4.0); Magnesium 2.4 mg/dl (1.7-2.4); Phosphorus 5.8 mg/dl (2.5-4.9); Potassium 5.2 mmol/L (3.5-5.1); Total Protein 7.5 gm/dl (6.0-8.3)
--- NOTE | 2022-07-01 09:10 | Nephrology Consultation ---
Date of Consultation July 01, 2022 Assessment & Plan (1) Acute on chronic renal failure: baseline creatinine mid ones; creatinine at baseline on admission 06/21. renal function was at baseline until 06/30 when it uptrended to peak at 2.2 today. this is about the time that the diuretics stopped. urine sediment is inflamed w/ new microhematuria > AC was just recently stopped for this pt pt with mild electrolyte aberrations> mild hyperkalemia, mild hyponatremia, mild hyperphosphatemia, marked elevation in bicarb. no IV contrast; no extremes of blood pressure or pulse rate >>DDX is broad here>need to rule out obstruction; ATN is possible / even likeliest in the setting of acute downturn 48 hrs back clinically; pulmonary renal syndromes and other glomerular diseases on differential but no indication currently for renal bx -use ethacrynic acid not lasix if further diuresis indicated but would hold for now -will quantify proteinuria -started on veltassa today -order in to check CK w/ labs in AM -f/u pending serologies -f/u pending urine culture -ordered low K diet as well -recommend abdominal imaging > CT a/p non con or renal u/s History of Present Illness Reason for Consultation: YELENA on CKD Requesting Physician: Dr Carrington Attending Physician: Bin Carrington MD History of Present Illness 71 y/o M was admitted 06/21 for worsening dypsnea w/ creatinine 1.5. I'm asked to see him for YELENA on CKD, w/ today's creatinine 2.2. His respiratory failure is multifactorial including alveolar hemohorrhage noted on 06/28 bronch (serologies pending), also acute on chronic systolic HF. 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 The patient is quite confused today which limits participation in ROS > he denies musculoskeletal pain and tells me his breathing is a bit improved. His 02 needs have waxed and waned through the day > he needed as much as 9L at times this am but now is down at about 4L. He has had a complex hospital course>he had lasix IV from admission through 06/27. On 06/27, the day of his bronch, he was found on the floor unresponsive and had hypercarbic respiratory failure needing ICU care but ultimately responding to bipap. He was downgraded to PCU status w/in 24 hrs; CT head showed no acute changes but L subdural collection which resolved on repeat imaging one day later. has completed a week of abtx. has had intermittent confusion He has been making adequate urine > PVR this am was zero; has been voiding 200- 300 mL uOP at a time. Allergies Allergy/AdvReac Type Severity Reaction Status Date / Time diphtheria toxoid,fluid Allergy Severe CONVULSIONS--HORSE Verified 06/21/22 19:29 SERUM BASE tetanus toxoid, adsorbed Allergy Severe CONVULSIONS--HORSE Verified 06/21/22 19:29 SERUM BASE Home Medications Medication Instructions Recorded Confirmed Type atorvastatin 40 mg tablet 40 mg PO HS 10/29/19 06/21/22 History cholecalciferol (vitamin D3) 25 2,000 unit PO QDL 11/20/19 06/21/22 History mcg (1,000 unit) capsule (Vitamin D3) folic acid 1 mg tablet 1 mg PO QDL 06/08/20 06/21/22 History metoprolol succinate 50 mg 50 mg PO BID 01/04/21 06/21/22 History tablet,extended release 24 hr cetirizine 10 mg tablet (Zyrtec) 5 mg PO QAM 08/16/21 06/21/22 History furosemide 40 mg tablet 40 mg PO QAM #0 tabs 12/31/21 06/21/22 Rx rivaroxaban 15 mg tablet (Xarelto) 15 mg PO HS #30 tabs 12/31/21 06/21/22 Rx ondansetron HCl 8 mg tablet 8 mg PO Q8H PRN Nausea 02/21/22 06/21/22 History prochlorperazine maleate 10 mg 10 mg PO Q6H PRN Nausea 02/21/22 06/21/22 History tablet pantoprazole 20 mg tablet,delayed 20 mg PO DAILY #90 tabs 03/18/22 06/21/22 Rx release allopurinol 100 mg tablet 100 mg PO QAM 05/26/22 06/21/22 History cyanocobalamin (vitamin B-12) 100 100 mcg PO DAILY 05/26/22 06/21/22 History mcg tablet (Vitamin B-12) magnesium oxide 400 mg (241.3 mg 400 mg PO QAM #30 tabs 05/29/22 06/21/22 Rx magnesium) tablet albuterol sulfate 90 mcg/actuation 2 puff inhalation Q4 PRN Wheezing 06/21/22 06/21/22 History aerosol inhaler benzonatate 200 mg capsule 200 mg PO UD PRN Cough 06/21/22 06/21/22 History Patient History Medical History Acute GI bleeding Atrial fibrillation dx 2016 - follows w/ Dr. Trejo Chronic systolic heart failure CKD (chronic kidney disease), stage III Congestive heart failure Deep vein thrombosis RLE - 2016 dx while hospitalized w/ pneumonia Duodenal ulcer Hearing deficit BL [facility] Hematoma of left lower extremity Osteoarthritis Pneumonia Pulmonary embolism 2016 - dx while hospitalized w/ pneumonia - on xarelto Surgical History History of appendectomy History of cardiac catheterization 2015 - [place] - no stents History of cardioversion 11/08/2016 History of carpal tunnel release of both wrists History of cataract surgery History of colonoscopy History of esophagogastroduodenoscopy (EGD) History of evacuation of hematoma LLE History of shoulder surgery Left 2004 History of tonsillectomy Presence of combination internal cardiac defibrillator (ICD) and pacemaker placed 2016 - medtronic - last checked 1 year ago - follows w/ dr. yeh Family History Mother Diabetes Grandfather (Paternal) No problems noted. Father Lymphoma Grandfather (Maternal) Myocardial infarction Other No family history of adverse response to anesthesia Denies family history of Ovarian cancer Prostate cancer Heart disease Breast cancer Colorectal cancer Social History Smoking Status: Former smoker Tobacco Type: Cigarettes Age Quit Using Tobacco: 53; Cigarettes Per Day: 1 pack a day; Second Hand Exposure: No; Do You Dip or Chew Tobacco: No; Tobacco Cessation Education Requested by Patient: No Hx Alcohol Use: No Hx Substance Use: No Preferred Language: Divehi Communication Ability: Effective Visual Impairment: Limited Hearing Ability: Use of Hearing Aid Solutions Architect Required: No Beliefs That Will Affect Care: None marital status: Current Living Situation: Spouse current occupational status: retired 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 How many Children do You have: 0 Other Information That Helps Us Care for You: No Feels Safe at Home: Yes Safety Concerns: Feels Safe At This Time Childhood Exposure to Second-Hand Smoke: Yes (dad did ) caffeine: Yes (cup of coffee in morning ) Dental Care, Regularly: No Physical Activity Frequency: Does not Exercise Seatbelt Use: always Sunscreen Use: No (doesn't go out in sun ) Assistive Devices: Bedside Commode, Cane and Walker Assistive Devices Comment: Hearing aides at home Review of Systems Review of Systems: Other (limited by pt mental status; as above) Physical Exam Constitutional: well developed, well nourished and cooperative; no acute distress Eyes: EOM intact bilaterally ENMT: Ears: + hearing impairment; no external ear abnormality Nose: no external nose abnormality Mouth: + dry oral mucous membranes Neck: no nuchal rigidity Respiratory: normal respiratory effort Auscultation: + diminished lung so unds, + crackles (coarse ) and + bronchovesicular breath sounds (tubular breath sounds) Cardiovascular: Rate/Rhythm: regular rate and + bradycardic Extremities: no edema Gastrointestinal (Abdomen): Inspection/Auscultation: normal bowel sounds Percussion/Palpation: abdomen soft; abdomen nontender Musculoskeletal: Extremities: strength 5/5 throughout Skin: no rashes, warm and dry 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, 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, no tremor Psychiatric: Orientation: oriented to person and cooperative Results & Data ([facility]) Vital Signs (Past 12 Hours) Vital Signs Temp Pulse Pulse Pulse Resp BP BP 07/01/22 07:41 36.5 C 78 20 100/61 07/01/22 07:32 75 18 07/01/22 03:47 36.4 C L 89 16 120/72 07/01/22 01:07 66 22 06/30/22 23:35 36.5 C 68 16 101/63 06/30/22 22:33 69 35 H 06/30/22 22:43 70 Pulse Ox O2 Del Method O2 Flow Rate 07/01/22 07:41 93 Oxymask 5 07/01/22 07:32 99 Nasal Cannula 5 07/01/22 03:47 100 Nasal Cannula 5 07/01/22 01:07 Nasal Cannula 6 06/30/22 23:35 100 Nasal Cannula 6 06/30/22 22:33 92 6 06/30/22 22:43 Laboratory Results 07/01/22 06:27 07/01/22 06:27 UA 1016, trace protein, >30 WBC, 1+ bacteria/blood/WBC Diagnostic Findings ct, cxr tte reviewed
--- NOTE | 2022-07-01 09:27 | Pulmonology Progress Note ---
Date of Service July 01, 2022 Assessment & Plan (1) Acute on chronic respiratory failure with hypoxia: (2) Acute decompensated heart failure: (3) Squamous cell carcinoma lung: Laterality: unspecified laterality Qualified Code(s): C34.90 - Malignant neoplasm of unspecified part of unspecified bronchus or lung (4) ILD (interstitial lung disease): Plan Impression: 71-year-old male with a history of interstitial lung disease and newly diagnosed squamous cell carcinoma of the lung metastatic to the liver on systemic chemotherapy. He developed progressive hypoxemic respiratory failure w ith diffuse pulm infiltrates and bronchoscopy was performed which revealed BAL findings consistent with alveolar hemorrhage. Cytology was negative. He has been placed on empiric steroids and appears to be improving Recommendations: 1. Pulmonary hemorrhage: Await serologies but suspect this may be related to chemotherapy and anticoagulation. Okay to restart DVT prophylaxis. If does well, can restart IV heparin in the next 24 hours for systemic anticoagulation if needed for atrial fibrillation and follow clinically. If he does well for 2 or 3 days, can restart oral anticoagulation in the form of DOAC or Coumadin. We will transition prednisone to 40 mg a day. Will place on Bactrim prophylaxis 1 double strength tablet every Monday, Monday, and Monday until prednisone dose goes below 20 mg a day. Steroids can be tapered by 10 mg every week until off. He will need to follow-up with his outpatient broodmare barn groom, Dr. Lopez with a follow-up CT scan in 4 to 6 weeks. Inflammatory markers including ESR and CRP were significantly elevated. These are nonspecific markers. MIRANDA, ANCA, and PJP PCR pending 2. Metastatic squamous cell carcinoma the lung. No evidence of recurrent malignancy on bronchoscopy 3. Interstitial lung disease: Unclear outpatient work-up at this point time. The patient's not really candidate for surgical lung biopsy at this point time 4. COPD: Patient's not bronchospastic currently 5. Patient is completed a course of antibiotics for possible pneumonia. Cultures are negative. No indication for additional antibiotics currently. 6. Patient likely requires acute rehab or SNF. Will continue to follow with you. Feel free to contact us with questions or concerns Admission and Anticipated Discharge Date Admission Date: June 21, 2022 Subjective Patient is doing well clinically. No acute events overnight. He tolerated CPAP. His oxygen is being weaned. He is coughing but not expectorating any phlegm. He is not had any residual hemoptysis. He did get out of bed with therapy yesterday but is significantly weak. They are recommending acute rehab. Review of Systems Review of Systems: All systems reviewed & are unremarkable except as noted in Subjective Physical Exam Constitutional: WD/WN, vitals as above Neck: trachea midline, no thyromegaly Respiratory: normal respiratory effort, lungs clear to auscultation no respiratory distress, no labored breathing and not tachypneic Auscultation: + diminished lung sounds, + crackles and + rhonchi; no wheezes Cardiovascular: RRR, no murmur, no edema Gastrointestinal (Abdomen): normal bowel sounds, soft, nontender, no hepatosplenomegaly Musculoskeletal: Extremities: extremities normal to inspection Skin: no rashes, warm and dry Lymphatic: no cervical lymphadenopathy Results & Data Results & Data ([facility]) Vital Signs (Past 12 Hours) Vital Signs Temp Pulse Pulse Pulse Resp BP BP 07/01/22 07:41 36.5 C 78 20 100/61 07/01/22 07:32 75 18 07/01/22 03:47 36.4 C L 89 16 120/72 07/01/22 01:07 66 22 06/30/22 23:35 36.5 C 68 16 101/63 06/30/22 22:33 69 35 H 06/30/22 22:43 70 Pulse Ox O2 Del Method O2 Flow Rate 07/01/22 07:41 93 Oxymask 5 07/01/22 07:32 99 Nasal Cannula 5 07/01/22 03:47 100 Nasal Cannula 5 07/01/22 01:07 Nasal Cannula 6 06/30/22 23:35 100 Nasal Cannula 6 06/30/22 22:33 92 6 06/30/22 22:43 Laboratory Results 07/01/22 06:27 07/01/22 06:27 ESR elevated at 109 CRP elevated at 13.79 Procalcitonin 0.59 Urinalysis showed trace blood MIRANDA and ANCA screen pending Fungitell negative Diagnostic Findings No new imaging PG Care Time/CCT Total # of Minutes Spent Total Time Spent with Patient: Total time spent is greater than 50% in coordination of care (as documented) at patient's floor/unit and/or counseling patient: Coding Level of Care Code 83143 Subseq Hosp Care Lvl 2 Diagnoses Acute on chronic respiratory failure with hypoxia J96.21 Acute decompensated heart failure I50.9 Squamous cell carcinoma lung C34.90 Laterality: unspecified laterality ILD (interstitial lung disease) J84.9
[2022-07-01] MEDS: METOPROLOL SUCC 50MG EXT REL TAB PO SCH (09:49)
[2022-07-01] MEDS: CETIRIZINE HCL 10 MG TABLET PO SCH (09:50)
[2022-07-01] MEDS: SULFAMETHOXAZOLE/TRIMETHOPRIM DS 800/160MG TAB PO SCH (09:50)
[2022-07-01] MEDS: predniSONE 20 MG TAB PO SCH (09:50)
[2022-07-01] MEDS: PANTOprazole 40 MG TAB PO SCH (09:50)
[2022-07-01] MEDS: allopurinoL 100 MG TAB PO SCH (09:50)
[2022-07-01] MEDS: CYANOCOBALAMIN (B-12) 100 MCG TABLET PO SCH (09:50)
[2022-07-01] MEDS: MAGNESIUM OXIDE 400 MG TAB PO SCH ×2 (11:36→22:19)
[2022-07-01] MEDS: FOLIC ACID 1 MG TAB PO SCH (12:35)
[2022-07-01] MEDS: CHOLECALCIFEROL 1,000 UNITS 25 MCG TAB PO SCH (12:35)
--- NOTE | 2022-07-01 13:12 | Ultrasound Report ---
ULTRASOUND KIDNEYS AND BLADDER CLINICAL HISTORY: Acute renal insufficiency. COMPARISON STUDY: Abdominal CT dated 03/01/2022. TECHNIQUE: Real-time, grayscale, and color flow sonography of the kidneys and bladder is performed. I mages are reviewed in the transverse and longitudinal planes. FINDINGS: Kidneys: The kidneys are atrophic and slightly echogenic indicative of medical renal disease. The rig ht kidney measures 9.3 x 4.3 x 4.0 cm and the left kidney measures 10.3 x 5.3 x 4.5 cm. There is no hydronephrosis. No shadowing renal calculi are identified. A right upper pole cyst measures up to 2.1 cm. There is no sonographic evidence of contour deforming renal mass lesion. No perinephric fluid is identified. Bladder: The bladder is largely decompressed. The wall appears thickened/trabeculated indicating chronic disease manager venancio outlet obstruction. Ureteral jets were not seen. IMPRESSION: 1. There is evidence of medical renal disease. 2. No hydronephrosis. 3. The appearance of the bladder suggests chronic outlet obstruction. ACT 112: Negative or not required by law. Electronically signed by: Be Domínguez M.D. 07/01/2022 1:11 PM
--- NOTE | 2022-07-01 13:53 | Hospitalist Progress Note ---
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 Hospital course 06/21- presented to ED with oxygen saturation in 70s, required 6L oxymask on admission. Baseline of 2 L NC. Started on iv lasix 20 mg 06/22- Echo with EF 35-40%. Seen by cardio- continued on iv lasix bid. Started on Empiric Ceftriaxone/doxy for persistent leucocytosis and immunocompromised state. 06/23- Still on 5 L NC. Iv lasix increased to 20 mg tid 06/24- Worsening hypoxia to 10 L oxymask. CXR with worsening CHF. IV lasix increased to 40 q8hr 06/25- CT with pulm edema > PNA. Seen by pulm. started on BIPAP, continue iv lasix 06/26- CXR shows minimal improvement- iv lasix increased to 60 mg 06/27- Pulm plans for bronchoscopy, continue iv lasix 60 bid 06/28- patient underwent bronchoscopy. Was found on the floor unresponsive. Was found to have acute hypercapnic respiratory failure. Transferred to ICU for further care. CT head was done ; did not show any acute abnormality. Left subdural collection was seen. Follow-up in 24 to 48 hours was recommended. 06/29-overnight in the ICU, patient's mental status improved. He was on as needed BiPAP. His mentation was back to baseline. Repeat CT head was done; nterval near resolution of left subdural collection seen on prior exam. No acute abnormalities are seen. Patient was transferred to floors. Patient completed 7-day course of ceftriaxone and doxycycline. 07/01- His creatinine uptrended to 2.22; urine output of 500 cc in last 24 hours. Nephrology consulted. CXR 06/21- 1. Cardiomegaly and AICD with evidence of congestive failure and pulmonary edema. CXR 06/24- Cardiomegaly with progressive mixed interstitial and alveolar opacities. Findings are suggestive of pulmonary edema superimposed on chronic fibrosis. CT chest 06/25 1. Streak and motion compromised examination. 2. Cardiomegaly an AICD with evidence of congestive failure. 3. Diffuse airspace consolidation throughout both lungs likely represents pulmonary edema. This could also be seen with multifocal pneumonia and/or ARDS. Clinical correlation will be essential. 4. Right larger than left pleural effusions. 5. Again seen are changes of chronic interstitial lung disease. This cannot be compared to previous due to extensive superimposed airspace consolidation. 6. Mediastinal lymphadenopathy is increased from previous. This is likely reactive. 7. Calcified mediastinal and hilar lymph nodes are unchanged. CXR 06/26- 1. Interstitial thickening and multifocal airspace opacities, minimally improved since prior exam. The findings could reflect pulmonary edema, pneumonia or ARDS. Bronchoscopy on normal inspection bronchoscopy. BAL in lingula suggestive of possible pulmonary hemorrhage. Acute on chronic respiratory failure with hypoxia- likely multifactorial with his CHF, ILD, lung cancer Acute Hypercapnic Respiratory Failure Altered mental status 2/2 Hypercapnic Respiratory Failure Plan: Patient is status post 7 days of antibiotics. -We will continue on duo nebs every 6 hours. Prednisone as per pulmonology; currently on 40 mg once daily. Plan is to taper it 10 mg every week. He is also started on Bactrim Monday and Monday for PCP prophylaxis while on steroids. Heparin restarted. If patient does well on DVT prophylaxis; will start IV heparin after 24 hours. We will switch to oral anticoagulation if he continues to do well. -Holding off on Lasix currently due to increase in his creatinine. He appears to be euvolemic presently. -Continue bipap and supplemental oxygen wean off as tolerated -PT OT recommends rehab; family independence case manager on board. YELENA on CKD -Baseline creatinine is around 1.5; patient's creatinine up trended in the last 2 days. His urine output has also decreased during the same period. His blood pressure prior to the YELENA was on the lower side than his usual baseline. YELENA might be related to the hemodynamic changes. He was also on diuretics prior to increase in his creatinine. -[facility] renalno evidence of hydronephrosis Plan; -We will continue to monitor his urine output. BMP daily. -Switch his metoprolol succinate to once daily; hopefully improve his blood pressure We will hold his digoxin given his YELENA for now. Acute on chronic systolic heart failure - Echo with EF 35-40% -Serial x-ray shows improvement in pulmonary edema with diuresis. Squamous cell carcinoma lung - Follows with Dr. Petersen of [facility] and was seen in follow up earlier today. Chemo regimen includes gemcitabine and the carboplatin chemotherapy which was started in December 2021 - Last received chemo 06/17/22 Anemia - Recent admissions with severe anemia requiring prbc transfusions - Receiving Aranesp for chronic anemia every 3 weeks - Hgb stable >8. 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 CT chest reviewed as above CAD (coronary artery disease) - Stable. Continue statin, Toprol H/o DVT/PE in 2016- Xarelto on hold due to pulmonary hemorrage. heparin ppx started. Paroxysmal atrial fibrillation- Continue Toprol. digoxin on hold. COPD-started on duo nebs every 6 hours and steroids Hypomagnesemia- repleted. DVT ppx: heparin Dispo: Rehab when medically stable Code status: Full code Admission and Anticipated Discharge Date Admission Date: June 21, 2022 Subjective Patient seen and examined at bedside. He is sitting up on the bed; not in any distress. He said he was able to tolerate BiPAP overnight. His cough has improved compared to yesterday. Telemetry shows A. fib with controlled ventricular rate and paced rhythm intermittently. Urine output of 550ml in last 24 hours Review of Systems Review of Systems: All systems reviewed & are unremarkable except as noted in Subjective Physical Exam Physical Exam: General: Awake alert oriented x3. Not in any acute distress. Chest: Bilateral basal crackles present. CVS: Irregular, normal heart sounds, no murmur Abdomen: Soft, non tender, not distended, normal bowel sounds Neuro: Alert, oriented x3. Extremities: trace edema Results & Data Results & Data ([facility]) Vital Signs (Past 12 Hours) Vital Signs Temp Pulse Pulse Resp BP BP Pulse Ox 07/01/22 13:14 70 16 100 07/01/22 07:41 36.5 C 78 20 100/61 93 07/01/22 07:32 75 18 99 07/01/22 03:47 36.4 C L 89 16 120/72 100 O2 Del Method O2 Flow Rate 07/01/22 13:14 Nasal Cannula 4 07/01/22 07:41 Oxymask 5 07/01/22 07:32 Nasal Cannula 5 07/01/22 03:47 Nasal Cannula 5 Laboratory Results Laboratory Results WBC 14.24 K/ul (4.8-10.8) H 07/01/22 06:27 RBC 3.04 M/uL (4.63-6.08) L 07/01/22 06:27 Hgb 9.5 g/dl (14.0-18.0) L 07/01/22 06:27 POC Hgb 10.5 g/dl (14.0-18.0) L 06/28/22 14:52 Hct 31.1 % (40.1-51.0) L 07/01/22 06:27 POC Hct 31 % (42-52) L 06/28/22 14:52 MCV 102.3 fL (80.0-100.0) H 07/01/22 06:27 MCH 31.3 pg (25.0-34.0) 07/01/22 06:27 MCHC 30.5 g/dL (32.0-36.0) L 07/01/22 06:27 RDW Std Deviation 80.4 fL (36.4-46.3) H 07/01/22 06:27 RDW Coeff of Yogi 22.4 % (11.5-14.5) H 07/01/22 06:27 Plt Count 278 K/uL (130-400) 07/01/22 06:27 MPV 11.2 fL (9.4-12.4) 07/01/22 06:27 Immature Gran % (Auto) 0.6 % 06/21/22 15:42 Neut % (Auto) 93.9 % 06/21/22 15:42 Lymph % (Auto) 3.1 % 06/21/22 15:42 [place] % (Auto) 1.1 % 06/21/22 15:42 Eos % (Auto) 1.1 % 06/21/22 15:42 Baso % (Auto) 0.2 % 06/21/22 15:42 Neut # (Auto) 12.45 K/uL (1.4-6.5) H 06/21/22 15:42 Lymph # (Auto) 0.41 K/uL (1.2-3.4) L 06/21/22 15:42 [place] # (Auto) 0.15 K/uL (0.24-0.82) L 06/21/22 15:42 Eos # (Auto) 0.15 K/uL (0-0.50) 06/21/22 15:42 Baso # (Auto) 0.03 K/uL (0-0.2) 06/21/22 15:42 Immature Gran # (Auto) 0.08 K/uL (0.00-0.02) H 06/21/22 15:42 Absolute Nucleated RBC 0.11 K/uL (0-0) H 07/01/22 06:27 Nucleated RBC % (auto) 0.8 % 07/01/22 06:27 Anisocytosis Present 06/21/22 15:42 ESR 109 mm/hr (0-20) H 06/29/22 08:19 Sample Site R Radial 06/28/22 14:52 POC pH 7.40 (7.35-7.45) 06/28/22 14:52 POC pCO2 77 mmHg (35-46) H 06/28/22 14:52 POC pO2 78 mmHg (80-95) L 06/28/22 14:52 POC HCO3 48 virgil/L (19-24) H 06/28/22 14:52 POC Total CO2 > 40 mmol/L (24-31) H* 06/28/22 14:52 POC Base Excess 23.0 virgil/L (-9-1.8) H 06/28/22 14:52 ABG pH (Temp Correct) 7.403 (7.35-7.45) 06/28/22 14:52 ABG pCO2 (Temp Corrct 76 mmHg (35-46) H 06/28/22 14:52 POC ABG pO2 at Pt Temp 77 06/28/22 14:52 POC ABG O2 Sat 95.0 % (90-95) 06/28/22 14:52 Nehemias Test Pass 06/28/22 14:52 VBG pH 7.41 (7.36-7.41) 06/21/22 15:44 VBG pCO2 56 mmHg (38-50) H 06/21/22 15:44 VBG pO2 25 mmHg 06/21/22 15:44 VBG HCO3 36 mmol/L 06/21/22 15:44 VBG O2 Saturation < 60.0 % 06/21/22 15:44 VBG Base Excess 8.9 mEq/L 06/21/22 15:44 O2 Delivery Device BIPAP 06/28/22 14:52 POC O2 Rate 16 06/28/22 14:52 POC FiO2 60 % 06/28/22 14:52 IPAP 18 06/28/22 14:52 POC Sodium 134 mmol/L (135-144) L 06/28/22 14:52 Sodium 133 mmol/L (136-145) L 07/01/22 06:27 POC Potassium 4.2 mmol/L (3.3-5.0) 06/28/22 14:52 Potassium 5.2 mmol/L (3.5-5.1) H 07/01/22 06:27 Chloride 86 mmol/L (98-107) L 07/01/22 06:27 Carbon Dioxide 42 mmol/L (21-32) H* 07/01/22 06:27 Anion Gap 5 (3-11) 07/01/22 06:27 BUN 82 mg/dl (6-23) H 07/01/22 06:27 Creatinine 2.22 mg/dl (0.6-1.4) H 07/01/22 06:27 Est Cr Clr Drug Dosing 33.5 ml/min 07/01/22 06:27 Est GFR ( Amer) 32.9 ml/min 07/01/22 06:27 Est GFR (Non-Af Amer) 28.3 ml/min 07/01/22 06:27 BUN/Creatinine Ratio 36.9 (10-20) H 07/01/22 06:27 Glucose 147 mg/dl (70-99(Fasting)) H 07/01/22 06:27 Calcium 9.4 mg/dl (8.5-10.1) 07/01/22 06:27 Phosphorus 5.8 mg/dl (2.5-4.9) H 07/01/22 06:27 Magnesium 2.4 mg/dl (1.7-2.4) 07/01/22 06:27 Total Bilirubin 0.8 mg/dl (0.2-1.0) 07/01/22 06:27 AST 49 U/L (13-39) H 07/01/22 06:27 ALT 39 U/L (7-52) 07/01/22 06:27 Alkaline Phosphatase 213 U/L (34-104) H 07/01/22 06:27 Troponin I High Sens 22.5 pg/ml (0-20) H 06/21/22 15:42 C-Reactive Protein 13.79 mg/dl (0-0.5) H 06/29/22 08:19 B-Natriuretic Peptide 489 pg/ml (0-100) H 06/24/22 06:05 Total Protein 7.5 gm/dl (6.0-8.3) 07/01/22 06:27 Albumin 3.3 gm/dl (3.4-5.0) L 07/01/22 06:27 Globulin 4.2 gm/dl (2.5-4.0) H 07/01/22 06:27 Albumin/Globulin Ratio 0.8 (0.9-2) L 07/01/22 06:27 Procalcitonin 0.59 ng/ml (0-0.5) H 06/29/22 04:04 Urine Color Dark Yellow 06/29/22 08:50 Urine Appearance Clear (Clear) 06/29/22 08:50 Urine pH 5.0 (4.5-7.5) 06/29/22 08:50 Ur Specific [place] 1.017 (1.000-1.030) 06/29/22 08:50 Urine Protein Negative (Negative) 06/29/22 08:50 Urine Glucose (UA) Negative (Negative) 06/29/22 08:50 Urine Ketones Negative (Negative) 06/29/22 08:50 Urine Blood Trace (Negative) H 06/29/22 08:50 Urine Nitrite Negative (Negative) 06/29/22 08:50 Urine Bilirubin Negative (Negative) 06/29/22 08:50 Urine Urobilinogen Negative (Negative) 06/29/22 08:50 Ur Leukocyte Esterase Trace (Negative) H 06/29/22 08:50 Urine WBC (Auto) 1-5 /hpf (0-5) 06/29/22 08:50 Urine RBC (Auto) 10-30 /hpf (0-4) H 06/29/22 08:50 U Hyaline Cast (Auto) 5-10 /lpf (0-5) H 06/29/22 08:50 U Epithel Cells (Auto) 5-10 /lpf (0-5) H 06/29/22 08:50 Urine Bacteria (Auto) Negative (Negative) 06/29/22 08:50 Fluid Neutrophils % 30 % 06/28/22 08:40 Fluid Lymphocytes % 6 % 06/28/22 08:40 Fluid Eosinophils % 6 % 06/28/22 08:40 Fluid Basophils % 1 % 06/28/22 08:40 Fl Monocyt/Macrophag % 57 % 06/28/22 08:40 Fluid Comment 06/28/22 08:40 Nasal Screen MRSA (PCR) Negative (Negative) 06/25/22 11:14 SARS-CoV-2 (PCR) NEGATIVE (Negative) 06/21/22 15:55 Influ A Molecular Assay Negative (Negative) 06/25/22 11:14 Influ B Molecular Assay Negative (Negative) 06/25/22 11:[address] 06/25/22 07:45 CT SCAN OF THE CHEST WITHOUT IV CONTRAST CLINICAL HISTORY: Hypoxia. Congestive heart failure. COMPARISON STUDY: Chest x-ray dated 06/24/2022. A chest CT dated 11/20/2019. TECHNIQUE: CT scan of the thorax was performed from the thoracic inlet to the upper abdomen. Images are reviewed in the axial, sagittal, and coronal planes. IV contrast was not administered for this examination as per the referring clinician. A dose lowering technique was utilized adhering to the principles of ALARA. The examination is compromised by motion artifact, as well as by streak artifact from the arms which could not be elevated above the chest. CT DOSE: 1076.19 mGy.cm FINDINGS: Thyroid: Mildly enlarged and heterogeneous. Thoracic aorta: The thoracic aorta is normal in caliber and demonstrates standard 3-vessel arch anatomy. Heart: A cardiac AICD is present in the left chest wall. The heart is enlarged noting trace pericardial effusion. The coronary arteries are densely calcified. Lungs and pleural spaces: Again seen are changes of chronic interstitial lung disease. There is diffuse subpleural reticulation. Traction bronchiectasis is noted in the lower lobes. No honeycombing is seen. Intralobular septal thickening is seen throughout both lungs. There is diffuse airspace consolidation throughout both lungs, with mild spurring at the apices. There are small pleural effusions, right larger than left with associated atelectasis. The trachea and central airways are clear. There is no pneumothorax. Mediastinum: There are numerous mildly enlarged mediastinal lymph nodes which measure up to 14 mm short axis. Several containing calcifications. Violet[place]: There are calcified right hilar lymph nodes. Note that the violette are not well assessed without IV contrast. Axillae: There is no axillary lymphadenopathy. Upper abdomen: Calcified granulomas are noted in the liver and spleen. Partially visualized upper abdominal viscera is within normal limits. Skeletal structures: The skeletal structures are osteopenic. Degenerative change is noted in the shoulders and thoracic spine. No lytic or blastic bony lesions are seen. Soft tissues: Gynecomastia is noted. IMPRESSION: 1. Streak and motion compromised examination. 2. Cardiomegaly an AICD with evidence of congestive failure. 3. Diffuse airspace consolidation throughout both lungs likely represents pulmonary edema. This could also be seen with multifocal pneumonia and/or ARDS. Clinical correlation will be essential. 4. Right larger than left pleural effusions. 5. Again seen are changes of chronic interstitial lung disease. This cannot be compared to previous due to extensive superimposed airspace consolidation. 6. Mediastinal lymphadenopathy is increased from previous. This is likely reactive. 7. Calcified mediastinal and hilar lymph nodes are unchanged. ACT 112: Negative or not required by law. Electronically signed by: Be Domínguez M.D. 06/25/2022 10:07 AM Chest X-Ray 06/29/22 07:00 XR chest 1V portable HISTORY: Respiratory failure. Follow-up. COMPARISON: Chest 06/28/2022. FINDINGS: No pneumothorax. No pleural fusions. The cortex and what remains enlarged. There is mild elevation of the right hemidiaphragm, unchanged. There is a left-sided dual-chamber pacemaker/defibrillator. Diffuse interstitial thickening and patchy bilateral airspace opacities have slightly improved. IMPRESSION: Slight improvement in the diffuse interstitial thickening and patchy bilateral airspace opacities. ACT 112: Negative or not required by law. Electronically signed by: Reza Shanks M.D. 06/29/2022 10:[address] 06/29/22 08:17 CT head/brain wo con CLINICAL HISTORY: Follow up on CT head 24 hours prior Technique: Contiguous axial CT images of the head were acquired from the base of the skull to the vertex without intravenous contrast administration. Images were viewed in brain, subdural and bone windows. Automated dose lowering techniques and/or adjustment according to patient size were utilized for this exam. Comparison: Prior CT head 06/28/2022 Findings: Areas of decreased attenuation are present in the periventricular and subcortical white matter bilaterally consistent with small vessel ischemic disease. Generalized cerebral atrophy with commensurate enlargement of the ventricles, sulci, and cisterns is also present. There is no acute intracranial hemorrhage or evidence of acute territorial infarction. No shift of the midline structures, mass effect, or extra-axial abnormalities are shown. Atherosclerotic calcifications are present in the intracranial segments of the internal carotid arteries. In the interval, there is near complete previously noted left subdural collection. Redemonstration of encephalomalacia in the left frontal lobe compatible with old infarct. Imaged portions of the paranasal sinuses and mastoid air cells are clear. The orbits appear normal. There are no acute fractures of the calvaria or scalp swelling. Impression: Interval near resolution of left subdural collection seen on prior exam. No acute abnormalities are seen. ACT 112: Negative or not required by law. Electronically signed by: Riley Angeles M.D. 06/29/2022 10:22 AM Renal Ultrasound 07/01/22 08:15 ULTRASOUND KIDNEYS AND BLADDER CLINICAL HISTORY: Acute renal insufficiency. COMPARISON STUDY: Abdominal CT dated 03/01/2022. TECHNIQUE: Real-time, grayscale, and color flow sonography of the kidneys and bladder is performed. Images are reviewed in the transverse and longitudinal planes. FINDINGS: Kidneys: The kidneys are atrophic and slightly echogenic indicative of medical renal disease. The right kidney measures 9.3 x 4.3 x 4.0 cm and the left kidney measures 10.3 x 5.3 x 4.5 cm. There is no hydronephrosis. No shadowing renal calculi are identified. A right upper pole cyst measures up to 2.1 cm. There is no sonographic evidence of contour deforming renal mass lesion. No perinephric fluid is identified. Bladder: The bladder is largely decompressed. The wall appears thickened/trabeculated indicating chronic outlet obstruction. Ureteral jets were not seen. IMPRESSION: 1. There is evidence of medical renal disease. 2. No hydronephrosis. 3. The appearance of the bladder suggests chronic outlet obstruction. ACT 112: Negative or not required by law. Electronically signed by: Be Domínguez M.D. 07/01/2022 1:11 PM (1) Anemia Anemia type: unspecified type Qualified Code(s): D64.9 - Anemia, unspecified
[2022-07-01] MEDS: HEPARIN SOD 5,000 UNIT/0.5 ML VIAL SQ SCH ×2 (14:02→20:37)
[2022-07-01 14:08] LABS: Appearance Urine Clear (Clear); Bilirubin Urine Negative (Negative); Blood Urine 1+ (Negative); Color Urine Yellow; Glucose Urine UA Negative (Negative); Ketones Urine Negative (Negative); Leukocyte Esterase Urine 1+ (Negative); Nitrite Urine Negative (Negative); Protein Urine Trace (Negative); Specific Gravity Urine 1.016 (1.000-1.030); Urobilinogen Urine Negative (Negative)
[2022-07-01 14:22] LABS: WBC Urine Automated >30 /hpf (0-5)
[2022-07-01 14:23] LABS: Bacteria Urine Automated 1+ (Negative)
[2022-07-01 14:41] LABS: Urine Chloride < 15 mmol/L; Urine Potassium 53.8 mmol/L; Urine Sodium 12 mmol/L
[2022-07-01] MEDS ORDERED: PATIROMER CALCIUM SORBITEX 8.4 GM PACK PO SCH (15:00)
[2022-07-01 20:26] LABS: Creatinine Urine Random 88.8 mg/dl; Protein Creatinine Ratio Urine 0.3 (0-0.2); Total Protein Urine Random 27.1 mg/dl (0-11.9)
[2022-07-01] MEDS: ATORVASTATIN 40 MG TAB PO SCH (20:37)
[2022-07-02] MEDS: HEPARIN SOD 5,000 UNIT/0.5 ML VIAL SQ SCH (05:45)
[2022-07-02 06:13] LABS: Hematocrit (blood only) 28.2 % (40.1-51.0); Hemoglobin 8.6 g/dl (14.0-18.0); Mean Corpuscular Hemoglobin 31.2 pg (25.0-34.0); Mean Corpuscular Hgb Conc 30.5 g/dL (32.0-36.0); Mean Corpuscular Volume 102.2 fL (80.0-100.0); Mean Platelet Volume 10.8 fL (9.4-12.4); Nucleated RBC # (auto) 0.03 K/uL (0-0); Nucleated RBC % (auto) 0.2 %; Platelet Count 298 K/uL (130-400); RDW Standard Deviation 79.4 fL (36.4-46.3); Red Blood Count 2.76 M/uL (4.63-6.08); White Blood Count 12.18 K/ul (4.8-10.8)
[2022-07-02 06:35] LABS: Alanine Aminotransferase 43 U/L (7-52); Albumin Globulin Ratio 0.8 (0.9-2); Albumin Level 3.1 gm/dl (3.4-5.0); Alkaline Phosphatase 183 U/L (34-104); Aspartate Aminotransferase 47 U/L (13-39); BUN Creatinine Ratio 43.8 (10-20); Bilirubin,Total 0.8 mg/dl (0.2-1.0); Blood Urea Nitrogen 91 mg/dl (6-23); Carbon Dioxide > 45 mmol/L (21-32); Chloride 87 mmol/L (98-107); Creatine Kinase 25 U/L (30-223); Creatinine Clr Calc Pharmacy 35.7 ml/min; Est GFR (African American) 35.5 ml/min; Est GFR (Non-African American) 30.7 ml/min; Globulin 3.7 gm/dl (2.5-4.0); Glucose 131 mg/dl (70-99(Fasting)); Potassium 4.6 mmol/L (3.5-5.1); Sodium 134 mmol/L (136-145); Total Protein 6.8 gm/dl (6.0-8.3)
[2022-07-02] MEDS: ALBUT/IPRATROP 3MG/0.5MG NEB 3 ML VIAL NEB SCH ×4 (07:08→19:02)
[2022-07-02 07:52] LABS: Base Excess ABG 18.7 mEq/L (-9-1.8); HCO3 ABG 47 mmol/L (19-24); PCO2 ABG 73 mmHg (35-46); PO2 ABG 66 mmHg (80-95); pH ABG 7.42 (7.35-7.45)
[2022-07-02] MEDS: CETIRIZINE HCL 10 MG TABLET PO SCH (08:08)
[2022-07-02] MEDS: CYANOCOBALAMIN (B-12) 100 MCG TABLET PO SCH (08:08)
[2022-07-02] MEDS: METOPROLOL SUCC 50MG EXT REL TAB PO SCH (08:09)
[2022-07-02] MEDS: PANTOprazole 40 MG TAB PO SCH (08:10)
[2022-07-02] MEDS: predniSONE 20 MG TAB PO SCH (08:10)
[2022-07-02] MEDS: allopurinoL 100 MG TAB PO SCH (08:11)
--- NOTE | 2022-07-02 08:33 | Pulmonology Progress Note ---
Date of Service July 02, 2022 Assessment & Plan (1) Acute on chronic respiratory failure with hypoxia: (2) Acute decompensated heart failure: (3) Squamous cell carcinoma lung: Laterality: unspecified laterality Qualified Code(s): C34.90 - Malignant neoplasm of unspecified part of unspecified bronchus or lung (4) ILD (interstitial lung disease): Plan Impression: 71-year-old male with a history of interstitial lung disease and newly diagnosed squamous cell carcinoma of the lung metastatic to the liver on systemic chemotherapy. He developed progressive hypoxemic respiratory failure w ith diffuse pulm infiltrates and bronchoscopy was performed which revealed BAL findings consistent with alveolar hemorrhage. Cytology was negative. He has been placed on empiric steroids and appears to be improving Recommendations: 1. Pulmonary hemorrhage: Await serologies but suspect this may be related to chemotherapy and anticoagulation. Tolerating DVT prophylaxis. Okay to transition to full systemic anticoagulation for A. fib if needed. If he does well for 24 to 48 hours, can restart oral anticoagulation in the form of DOAC or Coumadin. We will continue prednisone to 40 mg a day as well as Bactrim prophylaxis 1 double strength tablet every Monday, Monday, and Monday until prednisone dose goes below 20 mg a day. Steroids can be tapered by 10 mg every week until off. He will need to follow-up with his outpatient visual merchandiser, Dr. Lopez with a follow-up CT scan in 4 to 6 weeks. Inflammatory markers including ESR and CRP were significantly elevated. These are nonspecific markers. MIRANDA, ANCA, and PJP PCR pending 2. Metastatic squamous cell carcinoma the lung. No evidence of recurrent malignancy on bronchoscopy 3. Interstitial lung disease: Unclear outpatient work-up at this point time. The patient's not really candidate for surgical lung biopsy at this point time 4. COPD: Patient's not bronchospastic currently 5. Patient is completed a course of antibiotics for possible pneumonia. Cultures are negative. No indication for additional antibiotics currently. 6. Patient likely requires acute rehab or SNF. Feel free to contact us with questions. Anticipate the patient can be discharged to rehab in short order. Admission and Anticipated Discharge Date Admission Date: June 21, 2022 Subjective Patient seen and examined. Patient thinks his breathing is okay. He is coughing but not expectorating phlegm. He did use CPAP for a brief period of time last night. He is not had any additional hemoptysis. He overall thinks he is improving. He continues to feel weak and deconditioned. Review of Systems Review of Systems: All systems reviewed & are unremarkable except as noted in Subjective Physical Exam Constitutional: WD/WN, vitals as above ENMT: Mallampati Class: III Neck: trachea midline, no thyromegaly Respiratory: normal respiratory effort, lungs clear to auscultation no respiratory distress, no labored breathing and not tachypneic Auscultation: + diminished lung sounds, + crackles and + rhonchi; no wheezes Cardiovascular: RRR, no murmur, no edema Gastrointestinal (Abdomen): normal bowel sounds, soft, nontender, no hepatosplenomegaly Musculoskeletal: Extremities: extremities normal to inspection Skin: no rashes, warm and dry Lymphatic: no cervical lymphadenopathy Results & Data Results & Data ([facility]) Vital Signs (Past 12 Hours) Vital Signs Temp Pulse Pulse Pulse Resp BP Pulse Ox 07/02/22 07:45 36.9 C 73 20 107/65 96 07/02/22 07:08 65 16 100 07/02/22 03:00 36.5 C 84 18 109/68 100 07/02/22 00:00 76 16 95 07/01/22 23:35 71 07/01/22 22:15 70 26 H 97 07/01/22 22:32 36.6 C 73 20 122/81 96 07/01/22 20:56 O2 Del Method O2 Flow Rate FiO2 07/02/22 07:45 Nasal Cannula 4 07/02/22 07:08 Nasal Cannula 6 07/02/22 03:00 Nasal Cannula 07/02/22 00:00 Nasal Cannula 4 07/01/22 23:35 07/01/22 22:15 40 07/01/22 22:32 07/01/22 20:56 Nasal Cannula 3 Laboratory Results 07/02/22 05:33 07/02/22 05:33 Diagnostic Findings No new imaging PG Care Time/CCT Total # of Minutes Spent Total Time Spent with Patient: Total time spent is greater than 50% in coordination of care (as documented) at patient's floor/unit and/or counseling patient: Coding Level of Care Code 88594 Subseq Hosp Care Lvl 2 Diagnoses Acute on chronic respiratory failure with hypoxia J96.21 Acute decompensated heart failure I50.9 Squamous cell carcinoma lung C34.90 Laterality: unspecified laterality ILD (interstitial lung disease) J84.9
[2022-07-02 09:30] LABS: Allen Test Pos (Pos)
--- NOTE | 2022-07-02 10:36 | Nephrology Progress Note ---
Date of Service July 02, 2022 Assessment & Plan (1) Acute on chronic renal failure: Plan: baseline creatinine mid ones; creatinine at baseline on admission 06/21. renal function was at baseline until 06/30 when it uptrended to peak at 2.2 - this is about the time that the diuretics stopped(getting better again 2.08 today ) urine sediment is inflamed w/ new microhematuria > AC was just recently stopped for this pt pt with mild electrolyte aberrations> mild hyperkalemia, mild hyponatremia, mild hyperphosphatemia, marked elevation in bicarb. no IV contrast; no extremes of blood pressure or pulse rate >>DDX is broad here>need to rule out obstruction; ATN is possible / even likeliest in the setting of acute downturn 48 hrs back clinically; pulmonary renal syndromes and other glomerular diseases on differential but no indication currently for renal bx, Renal USS Shows no obstruction with chronic outflow obstruction -use ethacrynic acid not lasix if further diuresis indicated, Can try albumin BID if BP is still low. - d/c Valtessa. -CK wnl -f/u pending serologies -f/u pending urine culture -ordered low K diet as well - Admission and Anticipated Discharge Date Admission Date: June 21, 2022 Subjective Patient seen and examined. Patient thinks his breathing is okay. He is coughing but not expectorating phlegm, no hemoptysis. Review of Systems Review of Systems: Sob better No c/o cough or hemoptysis. Physical Exam Physical Exam: 07/02/22 05:33 07/02/22 05:33 Results & Data ([facility]) Vital Signs (Past 12 Hours) Vital Signs Temp Pulse Pulse Pulse Resp BP Pulse Ox 07/02/22 07:45 36.9 C 73 20 107/65 96 07/02/22 07:08 65 16 100 07/02/22 03:00 36.5 C 84 18 109/68 100 07/02/22 00:00 76 16 95 07/01/22 23:35 71 O2 Del Method O2 Flow Rate 07/02/22 07:45 Nasal Cannula 4 07/02/22 07:08 Nasal Cannula 6 07/02/22 03:00 Nasal Cannula 07/02/22 00:00 Nasal Cannula 4 07/01/22 23:35 Laboratory Results 07/02/22 05:33 07/02/22 05:33
[2022-07-02] MEDS: CHOLECALCIFEROL 1,000 UNITS 25 MCG TAB PO SCH (11:41)
[2022-07-02] MEDS: MAGNESIUM OXIDE 400 MG TAB PO SCH ×2 (11:41→21:27)
[2022-07-02] MEDS: FOLIC ACID 1 MG TAB PO SCH (11:42)
[2022-07-02] MEDS ORDERED: *Start* Heparin IV Low Dose IV ONE (12:52)
[2022-07-02] MEDS ORDERED: Heparin IV Adult Wt-Based Low-Dose WITH Bolus Protocol IV STA (13:14)
[2022-07-02] MEDS ORDERED: Heparin IV Adult Wt-Based Low-Dose *NO* Bolus Protocol IV ONE (13:19)
--- NOTE | 2022-07-02 13:24 | Hospitalist Progress Note ---
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 Hospital course 06/21- presented to ED with oxygen saturation in 70s, required 6L oxymask on admission. Baseline of 2 L NC. Started on iv lasix 20 mg 06/22- Echo with EF 35-40%. Seen by cardio- continued on iv lasix bid. Started on Empiric Ceftriaxone/doxy for persistent leucocytosis and immunocompromised state. 06/23- Still on 5 L NC. Iv lasix increased to 20 mg tid 06/24- Worsening hypoxia to 10 L oxymask. CXR with worsening CHF. IV lasix increased to 40 q8hr 06/25- CT with pulm edema > PNA. Seen by pulm. started on BIPAP, continue iv lasix 06/26- CXR shows minimal improvement- iv lasix increased to 60 mg 06/27- Pulm plans for bronchoscopy, continue iv lasix 60 bid 06/28- patient underwent bronchoscopy. Was found on the floor unresponsive. Was found to have acute hypercapnic respiratory failure. Transferred to ICU for further care. CT head was done ; did not show any acute abnormality. Left subdural collection was seen. Follow-up in 24 to 48 hours was recommended. 06/29-overnight in the ICU, patient's mental status improved. He was on as needed BiPAP. His mentation was back to baseline. Repeat CT head was done; nterval near resolution of left subdural collection seen on prior exam. No acute abnormalities are seen. Patient was transferred to floors. Patient completed 7-day course of ceftriaxone and doxycycline. 07/01- His creatinine uptrended to 2.22; urine output of 500 cc in last 24 hours. Nephrology consulted. Subcu heparin started for DVT prophylaxis 07/02-no signs of any bleeding. Low-dose heparin drip started for A. fib and history of PE. CXR 06/21- 1. Cardiomegaly and AICD with evidence of congestive failure and pulmonary edema. CXR 06/24- Cardiomegaly with progressive mixed interstitial and alveolar opacities. Findings are suggestive of pulmonary edema superimposed on chronic fibrosis. CT chest 06/25 1. Streak and motion compromised examination. 2. Cardiomegaly an AICD with evidence of congestive failure. 3. Diffuse airspace consolidation throughout both lungs likely represents pulmonary edema. This could also be seen with multifocal pneumonia and/or ARDS. Clinical correlation will be essential. 4. Right larger than left pleural effusions. 5. Again seen are changes of chronic interstitial lung disease. This cannot be compared to previous due to extensive superimposed airspace consolidation. 6. Mediastinal lymphadenopathy is increased from previous. This is likely reactive. 7. Calcified mediastinal and hilar lymph nodes are unchanged. CXR 06/26- 1. Interstitial thickening and multifocal airspace opacities, minimally improved since prior exam. The findings could reflect pulmonary edema, pneumonia or ARDS. Bronchoscopy on normal inspection bronchoscopy. BAL in lingula suggestive of possible pulmonary hemorrhage. Acute on chronic respiratory failure with hypoxia- likely multifactorial with his CHF, ILD, lung cancer Acute Hypercapnic Respiratory Failure Altered mental status 2/2 Hypercapnic Respiratory Failure ABG done today which showed chronic respiratory acidosis. Plan: Patient is status post 7 days of antibiotics. -We will continue on duo nebs every 6 hours. Prednisone as per pulmonology; currently on 40 mg once daily. Plan is to taper it 10 mg every week. He is also started on Bactrim Monday and Monday for PCP prophylaxis while on steroids. Heparin restarted. Started on heparin drip low-dose without bolus.. We will switch to oral anticoagulation if he continues to do well. -Holding off on Lasix currently due to increase in his creatinine. He appears to be euvolemic presently. Nephrology recommends ethacrynic acid if further diuresis needed. -Continue bipap and supplemental oxygen wean off as tolerated -PT OT recommends rehab; case manager specialist on board. YELENA on CKD -Baseline creatinine is around 1.5; patient creatinine up trended to 2.2; improved today to 2.0. -Urine output increased today. -USG renalno evidence of hydronephrosis Plan; -We will continue to monitor his urine output. BMP daily. -Switch his metoprolol succinate to once daily; hopefully improve his blood pressure We will hold his digoxin given his YELENA for now. Acute on chronic systolic heart failure - Echo with EF 35-40% -Serial x-ray shows improvement in pulmonary edema with diuresis. Squamous cell carcinoma lung - Follows with Dr. Petersen of [facility] onc and was seen in follow up earlier today. Chemo regimen includes gemcitabine and the carboplatin chemotherapy which was started in December 2021 - Last received chemo 06/17/22 Anemia - Recent admissions with severe anemia requiring prbc transfusions - Receiving Aranesp for chronic anemia every 3 weeks - Hgb stable >8. 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 CT chest reviewed as above -Studies from the bronchoscopy so far unremarkable. No evidence of recurrent malignancy on bronchoscopy. CAD (coronary artery disease) - Stable. Continue statin, Toprol H/o DVT/PE in 2016- Xarelto on hold due to pulmonary hemorrage. heparin drip is started. Paroxysmal atrial fibrillation- Continue Toprol. digoxin on hold. COPD-started on duo nebs every 6 hours and steroids Hypomagnesemia- repleted. DVT ppx: heparin drip Dispo: Rehab when medically stable Code status: Full code Admission and Anticipated Discharge Date Admission Date: June 21, 2022 Subjective Patient seen and examined at bedside. Is comfortably sitting up on the bed; not in any acute distress. He feels that his breathing is a stable. Urine output in last 24 hours is 1625ml which is improved from previous day Telemetry shows A. fib and intermittently paced rhythm. Episodes of bigeminy, trigeminy noted. Review of Systems Review of Systems: All systems reviewed & are unremarkable except as noted in Subjective Physical Exam Physical Exam: General: Awake alert oriented x3. Not in any acute distress. Chest: Bilateral basal crackles present. Slightly decreased from previous day CVS: Irregular, normal heart sounds, no murmur Abdomen: Soft, non tender, not distended, normal bowel sounds Neuro: Alert, oriented x3. Extremities: trace edema Results & Data Results & Data ([facility]) Vital Signs (Past 12 Hours) Vital Signs Temp Pulse Pulse Pulse Resp BP Pulse Ox 07/02/22 10:57 36.5 C 73 19 117/70 100 07/02/22 10:34 68 07/02/22 10:34 07/02/22 07:45 36.9 C 73 20 107/65 96 07/02/22 07:08 65 16 100 07/02/22 03:00 36.5 C 84 18 109/68 100 O2 Del Method O2 Flow Rate 07/02/22 10:57 Nasal Cannula 4 07/02/22 10:34 07/02/22 10:34 Nasal Cannula 4 07/02/22 07:45 Nasal Cannula 4 07/02/22 07:08 Nasal Cannula 6 07/02/22 03:00 Nasal Cannula Laboratory Results Laboratory Results WBC 12.18 K/ul (4.8-10.8) H 07/02/22 05:33 RBC 2.76 M/uL (4.63-6.08) L 07/02/22 05:33 Hgb 8.6 g/dl (14.0-18.0) L 07/02/22 05:33 POC Hgb 10.5 g/dl (14.0-18.0) L 06/28/22 14:52 Hct 28.2 % (40.1-51.0) L 07/02/22 05:33 POC Hct 31 % (42-52) L 06/28/22 14:52 MCV 102.2 fL (80.0-100.0) H 07/02/22 05:33 MCH 31.2 pg (25.0-34.0) 07/02/22 05:33 MCHC 30.5 g/dL (32.0-36.0) L 07/02/22 05:33 RDW Std Deviation 79.4 fL (36.4-46.3) H 07/02/22 05:33 RDW Coeff of Yogi 22.0 % (11.5-14.5) H 07/02/22 05:33 Plt Count 298 K/uL (130-400) 07/02/22 05:33 MPV 10.8 fL (9.4-12.4) 07/02/22 05:33 Immature Gran % (Auto) 0.6 % 06/21/22 15:42 Neut % (Auto) 93.9 % 06/21/22 15:42 Lymph % (Auto) 3.1 % 06/21/22 15:42 [place] % (Auto) 1.1 % 06/21/22 15:42 Eos % (Auto) 1.1 % 06/21/22 15:42 Baso % (Auto) 0.2 % 06/21/22 15:42 Neut # (Auto) 12.45 K/uL (1.4-6.5) H 06/21/22 15:42 Lymph # (Auto) 0.41 K/uL (1.2-3.4) L 06/21/22 15:42 [place] # (Auto) 0.15 K/uL (0.24-0.82) L 06/21/22 15:42 Eos # (Auto) 0.15 K/uL (0-0.50) 06/21/22 15:42 Baso # (Auto) 0.03 K/uL (0-0.2) 06/21/22 15:42 Immature Gran # (Auto) 0.08 K/uL (0.00-0.02) H 06/21/22 15:42 Absolute Nucleated RBC 0.03 K/uL (0-0) H 07/02/22 05:33 Nucleated RBC % (auto) 0.2 % 07/02/22 05:33 Anisocytosis Present 06/21/22 15:42 ESR 109 mm/hr (0-20) H 06/29/22 08:19 Sample Site R Radial 06/28/22 14:52 POC pH 7.40 (7.35-7.45) 06/28/22 14:52 POC pCO2 77 mmHg (35-46) H 06/28/22 14:52 POC pO2 78 mmHg (80-95) L 06/28/22 14:52 POC HCO3 48 virgil/L (19-24) H 06/28/22 14:52 POC Total CO2 > 40 mmol/L (24-31) H* 06/28/22 14:52 POC Base Excess 23.0 virgil/L (-9-1.8) H 06/28/22 14:52 ABG pH 7.42 (7.35-7.45) 07/02/22 07:45 ABG pH (Temp Correct) 7.403 (7.35-7.45) 06/28/22 14:52 ABG pCO2 73 mmHg (35-46) H 07/02/22 07:45 ABG pCO2 (Temp Corrct 76 mmHg (35-46) H 06/28/22 14:52 ABG pO2 66 mmHg (80-95) L 07/02/22 07:45 POC ABG pO2 at Pt Temp 77 06/28/22 14:52 ABG HCO3 47 mmol/L (19-24) H 07/02/22 07:45 POC ABG O2 Sat 95.0 % (90-95) 06/28/22 14:52 ABG O2 Saturation 97.0 % (90-95) H 07/02/22 07:45 ABG Base Excess 18.7 mEq/L (-9-1.8) H 07/02/22 07:45 Nehemias Test Pos (Pos) 07/02/22 07:45 VBG pH 7.41 (7.36-7.41) 06/21/22 15:44 VBG pCO2 56 mmHg (38-50) H 06/21/22 15:44 VBG pO2 25 mmHg 06/21/22 15:44 VBG HCO3 36 mmol/L 06/21/22 15:44 VBG O2 Saturation < 60.0 % 06/21/22 15:44 VBG Base Excess 8.9 mEq/L 06/21/22 15:44 Oxygen Given 4L 07/02/22 07:45 O2 Delivery Device BIPAP 06/28/22 14:52 POC O2 Rate 16 06/28/22 14:52 POC FiO2 60 % 06/28/22 14:52 IPAP 18 06/28/22 14:52 POC Sodium 134 mmol/L (135-144) L 06/28/22 14:52 Sodium 134 mmol/L (136-145) L 07/02/22 05:33 POC Potassium 4.2 mmol/L (3.3-5.0) 06/28/22 14:52 Potassium 4.6 mmol/L (3.5-5.1) 07/02/22 05:33 Chloride 87 mmol/L (98-107) L 07/02/22 05:33 Carbon Dioxide > 45 mmol/L (21-32) H* 07/02/22 05:33 Anion Gap TNP 07/02/22 05:33 BUN 91 mg/dl (6-23) H 07/02/22 05:33 Creatinine 2.08 mg/dl (0.6-1.4) H 07/02/22 05:33 Est Cr Clr Drug Dosing 35.7 ml/min 07/02/22 05:33 Est GFR ( Amer) 35.5 ml/min 07/02/22 05:33 Est GFR (Non-Af Amer) 30.7 ml/min 07/02/22 05:33 BUN/Creatinine Ratio 43.8 (10-20) H 07/02/22 05:33 Glucose 131 mg/dl (70-99(Fasting)) H 07/02/22 05:33 Calcium 9.0 mg/dl (8.5-10.1) 07/02/22 05:33 Phosphorus 5.8 mg/dl (2.5-4.9) H 07/01/22 06:27 Magnesium 2.4 mg/dl (1.7-2.4) 07/01/22 06:27 Total Bilirubin 0.8 mg/dl (0.2-1.0) 07/02/22 05:33 AST 47 U/L (13-39) H 07/02/22 05:33 ALT 43 U/L (7-52) 07/02/22 05:33 Alkaline Phosphatase 183 U/L (34-104) H 07/02/22 05:33 Total Creatine Kinase 25 U/L (30-223) L 07/02/22 05:33 Troponin I High Sens 22.5 pg/ml (0-20) H 06/21/22 15:42 C-Reactive Protein 13.79 mg/dl (0-0.5) H 06/29/22 08:19 B-Natriuretic Peptide 489 pg/ml (0-100) H 06/24/22 06:05 Total Protein 6.8 gm/dl (6.0-8.3) 07/02/22 05:33 Albumin 3.1 gm/dl (3.4-5.0) L 07/02/22 05:33 Globulin 3.7 gm/dl (2.5-4.0) 07/02/22 05:33 Albumin/Globulin Ratio 0.8 (0.9-2) L 07/02/22 05:33 Procalcitonin 0.59 ng/ml (0-0.5) H 06/29/22 04:04 Urine Color Yellow 07/01/22 13:48 Urine Appearance Clear (Clear) 07/01/22 13:48 Urine pH 5.0 (4.5-7.5) 07/01/22 13:48 Ur Specific [place] 1.016 (1.000-1.030) 07/01/22 13:48 Urine Protein Trace (Negative) H 07/01/22 13:48 Urine Glucose (UA) Negative (Negative) 07/01/22 13:48 Urine Ketones Negative (Negative) 07/01/22 13:48 Urine Blood 1+ (Negative) H 07/01/22 13:48 Urine Nitrite Negative (Negative) 07/01/22 13:48 Urine Bilirubin Negative (Negative) 07/01/22 13:48 Urine Urobilinogen Negative (Negative) 07/01/22 13:48 Ur Leukocyte Esterase 1+ (Negative) H 07/01/22 13:48 Urine WBC (Auto) >30 /hpf (0-5) H 07/01/22 13:48 Urine RBC (Auto) 5-10 /hpf (0-4) H 07/01/22 13:48 U Hyaline Cast (Auto) 5-10 /lpf (0-5) H 07/01/22 13:48 U Epithel Cells (Auto) 5-10 /lpf (0-5) H 07/01/22 13:48 Urine Bacteria (Auto) 1+ (Negative) H 07/01/22 13:48 Urine Osmolality 471 mOsm/kg (500-800) L 07/01/22 13:48 Ur Random Creatinine 88.8 mg/dl 07/01/22 19:34 U Random Total Protein 27.1 mg/dl (0-11.9) H 07/01/22 19:34 Protein/Creatinin Ratio 0.3 (0-0.2) H 07/01/22 19:34 Urine Sodium 12 mmol/L 07/01/22 13:48 Urine Potassium 53.8 mmol/L 07/01/22 13:48 Urine Chloride < 15 mmol/L 07/01/22 13:48 Fluid Neutrophils % 30 % 06/28/22 08:40 Fluid Lymphocytes % 6 % 06/28/22 08:40 Fluid Eosinophils % 6 % 06/28/22 08:40 Fluid Basophils % 1 % 06/28/22 08:40 Fl Monocyt/Macrophag % 57 % 06/28/22 08:40 Fluid Comment 06/28/22 08:40 Nasal Screen MRSA (PCR) Negative (Negative) 06/25/22 11:14 SARS-CoV-2 (PCR) NEGATIVE (Negative) 06/21/22 15:55 Influ A Molecular Assay Negative (Negative) 06/25/22 11:14 Influ B Molecular Assay Negative (Negative) 06/25/22 11:[address] 06/25/22 07:45 CT SCAN OF THE CHEST WITHOUT IV CONTRAST CLINICAL HISTORY: Hypoxia. Congestive heart failure. COMPARISON STUDY: Chest x-ray dated 06/24/2022. A chest CT dated 11/20/2019. TECHNIQUE: CT scan of the thorax was performed from the thoracic inlet to the upper abdomen. Images are reviewed in the axial, sagittal, and coronal planes. IV contrast was not administered for this examination as per the referring clinician. A dose lowering technique was utilized adhering to the principles of ALARA. The examination is compromised by motion artifact, as well as by streak artifact from the arms which could not be elevated above the chest. CT DOSE: 1076.19 mGy.cm FINDINGS: Thyroid: Mildly enlarged and heterogeneous. Thoracic aorta: The thoracic aorta is normal in caliber and demonstrates standard 3-vessel arch anatomy. Heart: A cardiac AICD is present in the left chest wall. The heart is enlarged noting trace pericardial effusion. The coronary arteries are densely calcified. Lungs and pleural spaces: Again seen are changes of chronic interstitial lung disease. There is diffuse subpleural reticulation. Traction bronchiectasis is noted in the lower lobes. No honeycombing is seen. Intralobular septal thickening is seen throughout both lungs. There is diffuse airspace consolidation throughout both lungs, with mild spurring at the apices. There are small pleural effusions, right larger than left with associated atelectasis. The trachea and central airways are clear. There is no pneumothorax. Mediastinum: There are numerous mildly enlarged mediastinal lymph nodes which measure up to 14 mm short axis. Several containing calcifications. Violette: There are calcified right hilar lymph nodes. Note that the violette are not well assessed without IV contrast. Axillae: There is no axillary lymphadenopathy. Upper abdomen: Calcified granulomas are noted in the liver and spleen. Partially visualized upper abdominal viscera is within normal limits. Skeletal structures: The skeletal structures are osteopenic. Degenerative change is noted in the shoulders and thoracic spine. No lytic or blastic bony lesions are seen. Soft tissues: Gynecomastia is noted. IMPRESSION: 1. Streak and motion compromised examination. 2. Cardiomegaly an AICD with evidence of congestive failure. 3. Diffuse airspace consolidation throughout both lungs likely represents pulmo nary edema. This could also be seen with multifocal pneumonia and/or ARDS. Clinical correlation will be essential. 4. Right larger than left pleural effusions. 5. Again seen are changes of chronic interstitial lung disease. This cannot be compared to previous due to extensive superimposed airspace consolidation. 6. Mediastinal lymphadenopathy is increased from previous. This is likely reacti ve. 7. Calcified mediastinal and hilar lymph nodes are unchanged. ACT 112: Negative or not required by law. Electronically signed by: Be Domínguez M.D. 06/25/2022 10:07 AM Chest X-Ray 06/29/22 07:00 XR chest 1V portable HISTORY: Respiratory failure. Follow-up. COMPARISON: Chest 06/28/2022. FINDINGS: No pneumothorax. No pleural fusions. The cortex and what remains enlarged. There is mild elevation of the right hemidiaphragm, unchanged. There is a left-sided dual-chamber pacemaker/defibrillator. Diffuse interstitial thickening and patchy bilateral airspace opacities have slightly improved. IMPRESSION: Slight improvement in the diffuse interstitial thickening and patchy bilateral airspace opacities. ACT 112: Negative or not required by law. Electronically signed by: Reza Shanks M.D. 06/29/2022 10:[address] 06/29/22 08:17 CT head/brain wo con CLINICAL HISTORY: Follow up on CT head 24 hours prior Technique: Contiguous axial CT images of the head were acquired from the base of the skull to the vertex without intravenous contrast administration. Images were viewed in brain, subdural and bone windows. Automated dose lowering techniques and/or adjustment according to patient size were utilized for this exam. Comparison: Prior CT head 06/28/2022 Findings: Areas of decreased attenuation are present in the periventricular and subcortical white matter bilaterally consistent with small vessel ischemic disease. Generalized cerebral atrophy with commensurate enlargement of the ventricles, sulci, and cisterns is also present. There is no acute intracranial hemorrhage or evidence of acute territorial infarction. No shift of the midline structures, mass effect, or extra-axial abnormalities are shown. Atherosclerotic calcifications are present in the intracranial segments of the internal carotid arteries. In the interval, there is near complete previously noted left subdural collection. Redemonstration of encephalomalacia in the left frontal lobe compatible with old infarct. Imaged portions of the paranasal sinuses and mastoid air cells are clear. The orbits appear normal. There are no acute fractures of the calvaria or scalp swelling. Impression: Interval near resolution of left subdural collection seen on prior exam. No acute abnormalities are seen. ACT 112: Negative or not required by law. Electronically signed by: Riley Angeles M.D. 06/29/2022 10:22 AM Renal Ultrasound 07/01/22 08:15 ULTRASOUND KIDNEYS AND BLADDER CLINICAL HISTORY: Acute renal insufficiency. COMPARISON STUDY: Abdominal CT dated 03/01/2022. TECHNIQUE: Real-time, grayscale, and color flow sonography of the kidneys and bladder is performed. Images are reviewed in the transverse and longitudinal planes. FINDINGS: Kidneys: The kidneys are atrophic and slightly echogenic indicative of medical renal disease. The right kidney measures 9.3 x 4.3 x 4.0 cm and the left kidney measures 10.3 x 5.3 x 4.5 cm. There is no hydronephrosis. No shadowing renal calculi are identified. A right upper pole cyst measures up to 2.1 cm. There is no sonographic evidence of contour deforming renal mass lesion. No perinephric fluid is identified. Bladder: The bladder is largely decompressed. The wall appears thickened/trabeculated indicating chronic outlet obstruction. Ureteral jets were not seen. IMPRESSION: 1. There is evidence of medical renal disease. 2. No hydronephrosis. 3. The appearance of the bladder suggests chronic outlet obstruction. ACT 112: Negative or not required by law. Electronically signed by: Be Domínguez M.D. 07/01/2022 1:11 PM (1) Anemia Anemia type: unspecified type Qualified Code(s): D64.9 - Anemia, unspecified
[2022-07-02] MEDS ORDERED: HEPARIN SOD (PORCINE) 1000 UNIT/ML IV ONE ×2 (13:30→13:49)
[2022-07-02] MEDS ORDERED: HEPARIN SODIUM/DEXTROSE 25,000 UNITS/500 ML BAG IV SCH (13:30)
[2022-07-02] MEDS ORDERED: HEPARIN IV BOLUS 4,000 UNITS in SYRINGE 0 ML IV ONE (14:15)
[2022-07-02] MEDS: HEPARIN SODIUM/DEXTROSE 25,000 UNITS/500 ML BAG IV SCH (14:16)
[2022-07-02 20:56] LABS: Partial Thromboplastin Time 54.4 Seconds (21.0-31.0)
[2022-07-02] MEDS: ATORVASTATIN 40 MG TAB PO SCH (21:26)
[2022-07-03] MEDS: ALBUT/IPRATROP 3MG/0.5MG NEB 3 ML VIAL NEB SCH ×4 (00:39→19:03)
[2022-07-03 01:36] LABS: ANCA Screen Negative (Negative); Anti Nuclear Antibody Screen NEGATIVE (NEGATIVE); Myeloperoxidase Ab <1.0 AI (<1.0); Proteinase-3 AB <1.0 AI (<1.0)
[2022-07-03] MEDS: MoRPHine SULFATE 2 MG/ML CARP IV PRN (02:52)
[2022-07-03 06:26] LABS: Hematocrit (blood only) 28.3 % (40.1-51.0); Hemoglobin 8.8 g/dl (14.0-18.0); Mean Corpuscular Hemoglobin 31.8 pg (25.0-34.0); Mean Corpuscular Hgb Conc 31.1 g/dL (32.0-36.0); Mean Corpuscular Volume 102.2 fL (80.0-100.0); Mean Platelet Volume 11.5 fL (9.4-12.4); Platelet Count 329 K/uL (130-400); RDW Coefficient of Variation 22.4 % (11.5-14.5); RDW Standard Deviation 80.7 fL (36.4-46.3); Red Blood Count 2.77 M/uL (4.63-6.08); White Blood Count 15.36 K/ul (4.8-10.8)
[2022-07-03 06:52] LABS: Partial Thromboplastin Ratio 2.9
[2022-07-03 06:53] LABS: Albumin Globulin Ratio 0.9 (0.9-2); Albumin Level 3.3 gm/dl (3.4-5.0); BUN Creatinine Ratio 46.5 (10-20); Bilirubin,Total 0.9 mg/dl (0.2-1.0); Calcium 9.2 mg/dl (8.5-10.1); Creatinine Clr Calc Pharmacy 40.2 ml/min; Est GFR (Non-African American) 35.3 ml/min; Globulin 3.6 gm/dl (2.5-4.0); Potassium 4.2 mmol/L (3.5-5.1); Total Protein 6.9 gm/dl (6.0-8.3)
[2022-07-03 07:00] LABS: Partial Thromboplastin Time 79.7 Seconds (21.0-31.0)
[2022-07-03] MEDS: allopurinoL 100 MG TAB PO SCH (08:02)
[2022-07-03] MEDS: CETIRIZINE HCL 10 MG TABLET PO SCH (08:02)
[2022-07-03] MEDS: predniSONE 20 MG TAB PO SCH (08:03)
[2022-07-03] MEDS: METOPROLOL SUCC 50MG EXT REL TAB PO SCH (08:03)
[2022-07-03] MEDS: PANTOprazole 40 MG TAB PO SCH (08:04)
[2022-07-03] MEDS: CYANOCOBALAMIN (B-12) 100 MCG TABLET PO SCH (08:04)
--- NOTE | 2022-07-03 08:19 | Pulmonology Progress Note ---
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 He developed progressive hypoxemic respiratory failure w ith diffuse pulm infiltrates and bronchoscopy was performed which revealed BAL findings consistent with alveolar hemorrhage. Cytology was negative. He has been placed on empiric steroids and appears to be improving. He has type III respiratory failure, hypoxemic and hypercarbic. Recommendations: 1. Pulmonary hemorrhage: MIRANDA and ANCA negative. ESR and CRP elevated. Suspect this may be related to chemotherapy and anticoagulation. Okay to transition to full systemic anticoagulation for A. fib if needed. If he does well for 24 to 48 hours, can restart oral anticoagulation in the form of DOAC or Coumadin. We will continue prednisone to 40 mg a day as well as Bactrim prophylaxis 1 double strength tablet every Monday, Monday, and Monday until prednisone dose goes below 20 mg a day. Steroids can be tapered by 10 mg every week until off. He will need to follow-up with his outpatient oven dauber, Dr. Lopez with a follow-up CT scan in 4 to 6 weeks. PJP PCR still pending, however Fungitell was negative. 2. Metastatic squamous cell carcinoma the lung. No evidence of recurrent malignancy on bronchoscopy 3. Interstitial lung disease: Unclear outpatient work-up at this point time. The patient's not really candidate for surgical lung biopsy at this point time 4. COPD/hypercarbic respiratory failure: Patient's not bronchospastic currently. Continue current inhalers. Patient was encouraged to remain compliant with nocturnal noninvasive positive pressure ventilation. Continue supplemental oxygen titrated to keep oxygen saturations at around 88 to 90%. Would not try and target oxygen saturations higher than this given his concomitant hypercarbia. 5. Patient is completed a course of antibiotics for possible pneumonia. Cultures are negative. No indication for additional antibiotics currently. 6. Patient likely requires acute rehab or SNF. Will continue to follow with you. Feel free to contact us with questions or concerns Admission and Anticipated Discharge Date Admission Date: June 21, 2022 Subjective Patient reports he is doing well this morning. He continues to cough and expectorate some clear phlegm. He is not had any recurrence of his hemoptysis. He continues to have some issues using noninvasive positive pressure ventilation at night. He denies chest pain or palpitations. No fevers chills or night s weats. Unfortunately he remains fairly sedentary. We encouraged him to get up out of bed and work with physical therapy. Review of Systems Review of Systems: All systems reviewed & are unremarkable except as noted in Subjective Physical Exam Constitutional: WD/WN, vitals as above Respiratory: normal respiratory effort, lungs clear to auscultation no respiratory distress, no labored breathing and not tachypneic Auscultation: + diminished lung sounds, + crackles and + rhonchi; no wheezes Cardiovascular: RRR, no murmur, no edema Gastrointestinal (Abdomen): normal bowel sounds, soft, nontender, no hepatosplenomegaly Musculoskeletal: Extremities: extremities normal to inspection Skin: no rashes, warm and dry Lymphatic: no cervical lymphadenopathy Results & Data Results & Data ([facility]) Vital Signs (Past 12 Hours) Vital Signs Temp Pulse Pulse Pulse Resp BP Pulse Ox 07/03/22 07:00 36.4 C L 84 18 113/75 100 07/03/22 07:16 76 18 100 07/03/22 03:00 36.9 C 68 20 130/69 100 07/03/22 00:40 74 16 93 07/02/22 23:48 80 07/02/22 23:13 07/02/22 23:00 36.8 C 81 22 109/72 99 07/02/22 22:40 82 27 H 91 O2 Del Method O2 Flow Rate FiO2 07/03/22 07:00 Nasal Cannula 4 07/03/22 07:16 Oxymask 7 07/03/22 03:00 Oxymask 10 07/03/22 00:40 Nasal Cannula 4 07/02/22 23:48 07/02/22 23:13 Oxymask 4 07/02/22 23:00 CPAP 07/02/22 22:40 50 Laboratory Results 07/03/22 05:50 07/03/22 05:50 MIRANDA, ANCA normal Diagnostic Findings Chest x-ray performed today was independently reviewed. Was compared to prior film from 06/29/2022. There are persistent bilateral hazy opacities, not significantly changed from prior imaging. PG Care Time/CCT Total # of Minutes Spent Total Time Spent with Patient: Total time spent is greater than 50% in coordination of care (as documented) at patient's floor/unit and/or counseling patient: Coding Level of Care Code 24981 Subseq Hosp Care Lvl 2 Diagnoses Acute on chronic respiratory failure with hypoxia J96.21 Acute decompensated heart failure I50.9 Squamous cell carcinoma lung C34.90 Laterality: unspecified laterality ILD (interstitial lung disease) J84.9
--- NOTE | 2022-07-03 09:00 | Hospitalist Progress Note ---
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 Hospital course 06/21- presented to ED with oxygen saturation in 70s, required 6L oxymask on admission. Baseline of 2 L NC. Started on iv lasix 20 mg 06/22- Echo with EF 35-40%. Seen by cardio- continued on iv lasix bid. Started on Empiric Ceftriaxone/doxy for persistent leucocytosis and immunocompromised state. 06/23- Still on 5 L NC. Iv lasix increased to 20 mg tid 06/24- Worsening hypoxia to 10 L oxymask. CXR with worsening CHF. IV lasix increased to 40 q8hr 06/25- CT with pulm edema > PNA. Seen by pulm. started on BIPAP, continue iv lasix 06/26- CXR shows minimal improvement- iv lasix increased to 60 mg 06/27- Pulm plans for bronchoscopy, continue iv lasix 60 bid 06/28- patient underwent bronchoscopy. Was found on the floor unresponsive. Was found to have acute hypercapnic respiratory failure. Transferred to ICU for further care. CT head was done ; did not show any acute abnormality. Left subdural collection was seen. Follow-up in 24 to 48 hours was recommended. 06/29-overnight in the ICU, patient's mental status improved. He was on as needed BiPAP. His mentation was back to baseline. Repeat CT head was done; nterval near resolution of left subdural collection seen on prior exam. No acute abnormalities are seen. Patient was transferred to floors. Patient completed 7-day course of ceftriaxone and doxycycline. 07/01- His creatinine uptrended to 2.22; urine output of 500 cc in last 24 hours. Nephrology consulted. Subcu heparin started for DVT prophylaxis 07/02-no signs of any bleeding. Low-dose heparin drip started for A. fib and history of PE. CXR 06/21- 1. Cardiomegaly and AICD with evidence of congestive failure and pulmonary edema. CXR 06/24- Cardiomegaly with progressive mixed interstitial and alveolar opacities. Findings are suggestive of pulmonary edema superimposed on chronic fibrosis. CT chest 06/25 1. Streak and motion compromised examination. 2. Cardiomegaly an AICD with evidence of congestive failure. 3. Diffuse airspace consolidation throughout both lungs likely represents pulmonary edema. This could also be seen with multifocal pneumonia and/or ARDS. Clinical correlation will be essential. 4. Right larger than left pleural effusions. 5. Again seen are changes of chronic interstitial lung disease. This cannot be compared to previous due to extensive superimposed airspace consolidation. 6. Mediastinal lymphadenopathy is increased from previous. This is likely reactive. 7. Calcified mediastinal and hilar lymph nodes are unchanged. CXR 06/26- 1. Interstitial thickening and multifocal airspace opacities, minimally improved since prior exam. The findings could reflect pulmonary edema, pneumonia or ARDS. Bronchoscopy on normal inspection bronchoscopy. BAL in lingula suggestive of possible pulmonary hemorrhage. Acute on chronic respiratory failure with hypoxia- likely multifactorial with his CHF, ILD, lung cancer Acute Hypercapnic Respiratory Failure Altered mental status 2/2 Hypercapnic Respiratory Failure . Plan: Patient is status post 7 days of antibiotics. -We will continue on duo nebs every 6 hours. Prednisone as per pulmonology; currently on 40 mg once daily. Plan is to taper it 10 mg every week. He is also started on Bactrim Monday and Monday for PCP prophylaxis while on steroids. Heparin restarted. On heparin drip low-dose without bolus.. We will switch to oral anticoagulation if he continues to do well till tomorrow. -Holding off on Lasix currently due to increase in his creatinine. He appears to be euvolemic presently. Nephrology recommends ethacrynic acid if further diuresis needed. -Continue bipap and supplemental oxygen wean off as tolerated -PT OT recommends rehab; immigration case worker on board. YELENA on CKD -Baseline creatinine is around 1.5; patient creatinine up trended to 2.2; improved today to 1.85 -Urine output improved today. -USG renalno evidence of hydronephrosis -Urine culture unremarkable Plan; -We will continue to monitor his urine output. BMP daily. -Switch his metoprolol succinate to once daily; hopefully improve his blood pressure We will hold his digoxin given his YELENA for now. Acute on chronic systolic heart failure - Echo with EF 35-40% -X-ray done on 07/03 shows improvement in congestion. Squamous cell carcinoma lung - Follows with Dr. Petersen of [facility] onc and was seen in follow up earlier today. Chemo regimen includes gemcitabine and the carboplatin chemotherapy which was started in December 2021 - Last received chemo 06/17/22 Anemia - Recent admissions with severe anemia requiring prbc transfusions - Receiving Aranesp for chronic anemia every 3 weeks - Hgb stable >8. 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 CT chest reviewed as above -Studies from the bronchoscopy so far unremarkable. No evidence of recurrent malignancy on bronchoscopy. CAD (coronary artery disease) - Stable. Continue statin, Toprol H/o DVT/PE in 2016- Xarelto on hold due to pulmonary hemorrage. heparin drip is started. Paroxysmal atrial fibrillation- Continue Toprol. digoxin on hold. COPD-started on duo nebs every 6 hours and steroids Hypomagnesemia- repleted. DVT ppx: heparin drip Dispo: Rehab when medically stable Code status: Full code Admission and Anticipated Discharge Date Admission Date: June 21, 2022 Subjective Patient seen and examined at bedside. He is sitting up on the bed; not in any acute distress. Has issues with BiPAP overnight; unable to stay on BiPAP for prolonged period of time. Telemetry shows atrial fibrillation with intermittent paced rhythm. Heart rate well controlled. Review of Systems Review of Systems: All systems reviewed & are unremarkable except as noted in Subjective Physical Exam Physical Exam: General: Awake alert oriented x3. Not in any acute distress. Chest: Bilateral basal crackles present. CVS: Irregular, normal heart sounds, no murmur Abdomen: Soft, non tender, not distended, normal bowel sounds Neuro: Alert, oriented x3. Extremities: trace edema Results & Data Results & Data ([facility]) Vital Signs (Past 12 Hours) Vital Signs Temp Pulse Pulse Pulse Resp BP Pulse Ox 07/03/22 07:00 36.4 C L 84 18 113/75 100 07/03/22 07:16 76 18 100 07/03/22 03:00 36.9 C 68 20 130/69 100 07/03/22 00:40 74 16 93 07/02/22 23:48 80 07/02/22 23:13 07/02/22 23:00 36.8 C 81 22 109/72 99 07/02/22 22:40 82 27 H 91 O2 Del Method O2 Flow Rate FiO2 07/03/22 07:00 Nasal Cannula 4 07/03/22 07:16 Oxymask 7 07/03/22 03:00 Oxymask 10 07/03/22 00:40 Nasal Cannula 4 07/02/22 23:48 07/02/22 23:13 Oxymask 4 07/02/22 23:00 CPAP 07/02/22 22:40 50 Laboratory Results Laboratory Results WBC 15.36 K/ul (4.8-10.8) H 07/03/22 05:50 RBC 2.77 M/uL (4.63-6.08) L 07/03/22 05:50 Hgb 8.8 g/dl (14.0-18.0) L 07/03/22 05:50 POC Hgb 10.5 g/dl (14.0-18.0) L 06/28/22 14:52 Hct 28.3 % (40.1-51.0) L 07/03/22 05:50 POC Hct 31 % (42-52) L 06/28/22 14:52 MCV 102.2 fL (80.0-100.0) H 07/03/22 05:50 MCH 31.8 pg (25.0-34.0) 07/03/22 05:50 MCHC 31.1 g/dL (32.0-36.0) L 07/03/22 05:50 RDW Std Deviation 80.7 fL (36.4-46.3) H 07/03/22 05:50 RDW Coeff of Yogi 22.4 % (11.5-14.5) H 07/03/22 05:50 Plt Count 329 K/uL (130-400) 07/03/22 05:50 MPV 11.5 fL (9.4-12.4) 07/03/22 05:50 Immature Gran % (Auto) 0.6 % 06/21/22 15:42 Neut % (Auto) 93.9 % 06/21/22 15:42 Lymph % (Auto) 3.1 % 06/21/22 15:42 Baxter % (Auto) 1.1 % 06/21/22 15:42 Eos % (Auto) 1.1 % 06/21/22 15:42 Baso % (Auto) 0.2 % 06/21/22 15:42 Neut # (Auto) 12.45 K/uL (1.4-6.5) H 06/21/22 15:42 Lymph # (Auto) 0.41 K/uL (1.2-3.4) L 06/21/22 15:42 Baxter # (Auto) 0.15 K/uL (0.24-0.82) L 06/21/22 15:42 Eos # (Auto) 0.15 K/uL (0-0.50) 06/21/22 15:42 Baso # (Auto) 0.03 K/uL (0-0.2) 06/21/22 15:42 Immature Gran # (Auto) 0.08 K/uL (0.00-0.02) H 06/21/22 15:42 Absolute Nucleated RBC 0.03 K/uL (0-0) H 07/02/22 05:33 Nucleated RBC % (auto) 0.2 % 07/02/22 05:33 Anisocytosis Present 06/21/22 15:42 ESR 109 mm/hr (0-20) H 06/29/22 08:19 APTT 79.7 Seconds (21.0-31.0) H* 07/03/22 05:50 PTT Ratio 2.9 07/03/22 05:50 Sample Site R Radial 06/28/22 14:52 POC pH 7.40 (7.35-7.45) 06/28/22 14:52 POC pCO2 77 mmHg (35-46) H 06/28/22 14:52 POC pO2 78 mmHg (80-95) L 06/28/22 14:52 POC HCO3 48 virgil/L (19-24) H 06/28/22 14:52 POC Total CO2 > 40 mmol/L (24-31) H* 06/28/22 14:52 POC Base Excess 23.0 virgil/L (-9-1.8) H 06/28/22 14:52 ABG pH 7.42 (7.35-7.45) 07/02/22 07:45 ABG pH (Temp Correct) 7.403 (7.35-7.45) 06/28/22 14:52 ABG pCO2 73 mmHg (35-46) H 07/02/22 07:45 ABG pCO2 (Temp Corrct 76 mmHg (35-46) H 06/28/22 14:52 ABG pO2 66 mmHg (80-95) L 07/02/22 07:45 POC ABG pO2 at Pt Temp 77 06/28/22 14:52 ABG HCO3 47 mmol/L (19-24) H 07/02/22 07:45 POC ABG O2 Sat 95.0 % (90-95) 06/28/22 14:52 ABG O2 Saturation 97.0 % (90-95) H 07/02/22 07:45 ABG Base Excess 18.7 mEq/L (-9-1.8) H 07/02/22 07:45 Nehemias Test Pos (Pos) 07/02/22 07:45 VBG pH 7.41 (7.36-7.41) 06/21/22 15:44 VBG pCO2 56 mmHg (38-50) H 06/21/22 15:44 VBG pO2 25 mmHg 06/21/22 15:44 VBG HCO3 36 mmol/L 06/21/22 15:44 VBG O2 Saturation < 60.0 % 06/21/22 15:44 VBG Base Excess 8.9 mEq/L 06/21/22 15:44 Oxygen Given 4L 07/02/22 07:45 O2 Delivery Device BIPAP 06/28/22 14:52 POC O2 Rate 16 06/28/22 14:52 POC FiO2 60 % 06/28/22 14:52 IPAP 18 06/28/22 14:52 POC Sodium 134 mmol/L (135-144) L 06/28/22 14:52 Sodium 135 mmol/L (136-145) L 07/03/22 05:50 POC Potassium 4.2 mmol/L (3.3-5.0) 06/28/22 14:52 Potassium 4.2 mmol/L (3.5-5.1) 07/03/22 05:50 Chloride 88 mmol/L (98-107) L 07/03/22 05:50 Carbon Dioxide 44 mmol/L (21-32) H* 07/03/22 05:50 Anion Gap 3 (3-11) 07/03/22 05:50 BUN 86 mg/dl (6-23) H 07/03/22 05:50 Creatinine 1.85 mg/dl (0.6-1.4) H 07/03/22 05:50 Est Cr Clr Drug Dosing 40.2 ml/min 07/03/22 05:50 Est GFR ( Amer) 41.0 ml/min 07/03/22 05:50 Est GFR (Non-Af Amer) 35.3 ml/min 07/03/22 05:50 BUN/Creatinine Ratio 46.5 (10-20) H 07/03/22 05:50 Glucose 146 mg/dl (70-99(Fasting)) H 07/03/22 05:50 Calcium 9.2 mg/dl (8.5-10.1) 07/03/22 05:50 Phosphorus 5.8 mg/dl (2.5-4.9) H 07/01/22 06:27 Magnesium 2.4 mg/dl (1.7-2.4) 07/01/22 06:27 Total Bilirubin 0.9 mg/dl (0.2-1.0) 07/03/22 05:50 AST 34 U/L (13-39) 07/03/22 05:50 ALT 38 U/L (7-52) 07/03/22 05:50 Alkaline Phosphatase 173 U/L (34-104) H 07/03/22 05:50 Total Creatine Kinase 25 U/L (30-223) L 07/02/22 05:33 Troponin I High Sens 22.5 pg/ml (0-20) H 06/21/22 15:42 C-Reactive Protein 13.79 mg/dl (0-0.5) H 06/29/22 08:19 B-Natriuretic Peptide 489 pg/ml (0-100) H 06/24/22 06:05 Total Protein 6.9 gm/dl (6.0-8.3) 07/03/22 05:50 Albumin 3.3 gm/dl (3.4-5.0) L 07/03/22 05:50 Globulin 3.6 gm/dl (2.5-4.0) 07/03/22 05:50 Albumin/Globulin Ratio 0.9 (0.9-2) 07/03/22 05:50 Procalcitonin 0.59 ng/ml (0-0.5) H 06/29/22 04:04 Urine Color Yellow 07/01/22 13:48 Urine Appearance Clear (Clear) 07/01/22 13:48 Urine pH 5.0 (4.5-7.5) 07/01/22 13:48 Ur Specific Mays 1.016 (1.000-1.030) 07/01/22 13:48 Urine Protein Trace (Negative) H 07/01/22 13:48 Urine Glucose (UA) Negative (Negative) 07/01/22 13:48 Urine Ketones Negative (Negative) 07/01/22 13:48 Urine Blood 1+ (Negative) H 07/01/22 13:48 Urine Nitrite Negative (Negative) 07/01/22 13:48 Urine Bilirubin Negative (Negative) 07/01/22 13:48 Urine Urobilinogen Negative (Negative) 07/01/22 13:48 Ur Leukocyte Esterase 1+ (Negative) H 07/01/22 13:48 Urine WBC (Auto) >30 /hpf (0-5) H 07/01/22 13:48 Urine RBC (Auto) 5-10 /hpf (0-4) H 07/01/22 13:48 U Hyaline Cast (Auto) 5-10 /lpf (0-5) H 07/01/22 13:48 U Epithel Cells (Auto) 5-10 /lpf (0-5) H 07/01/22 13:48 Urine Bacteria (Auto) 1+ (Negative) H 07/01/22 13:48 Urine Osmolality 471 mOsm/kg (500-800) L 07/01/22 13:48 Ur Random Creatinine 88.8 mg/dl 07/01/22 19:34 U Random Total Protein 27.1 mg/dl (0-11.9) H 07/01/22 19:34 Protein/Creatinin Ratio 0.3 (0-0.2) H 07/01/22 19:34 Urine Sodium 12 mmol/L 07/01/22 13:48 Urine Potassium 53.8 mmol/L 07/01/22 13:48 Urine Chloride < 15 mmol/L 07/01/22 13:48 Fluid Neutrophils % 30 % 06/28/22 08:40 Fluid Lymphocytes % 6 % 06/28/22 08:40 Fluid Eosinophils % 6 % 06/28/22 08:40 Fluid Basophils % 1 % 06/28/22 08:40 Fl Monocyt/Macrophag % 57 % 06/28/22 08:40 Fluid Comment 06/28/22 08:40 Nasal Screen MRSA (PCR) Negative (Negative) 06/25/22 11:14 MIRANDA Screen NEGATIVE (NEGATIVE) 06/29/22 08:19 Anti-Proteinase 3 <1.0 AI (<1.0) 06/29/22 08:19 Anti-Myeloperoxidase <1.0 AI (<1.0) 06/29/22 08:19 ANCA Negative (Negative) 06/29/22 08:19 SARS-CoV-2 (PCR) NEGATIVE (Negative) 06/21/22 15:55 Influ A Molecular Assay Negative (Negative) 06/25/22 11:14 Influ B Molecular Assay Negative (Negative) 06/25/22 11:[address] 06/25/22 07:45 CT SCAN OF THE CHEST WITHOUT IV CONTRAST CLINICAL HISTORY: Hypoxia. Congestive heart failure. COMPARISON STUDY: Chest x-ray dated 06/24/2022. A chest CT dated 11/20/2019. TECHNIQUE: CT scan of the thorax was performed from the thoracic inlet to the upper abdomen. Images are reviewed in the axial, sagittal, and coronal planes. IV contrast was not administered for this examination as per the referring clinician. A dose lowering technique was utilized adhering to the principles of ALARA. The examination is compromised by motion artifact, as well as by streak artifact from the arms which could not be elevated above the chest. CT DOSE: 1076.19 mGy.cm FINDINGS: Thyroid: Mildly enlarged and heterogeneous. Thoracic aorta: The thoracic aorta is normal in caliber and demonstrates standard 3-vessel arch anatomy. Heart: A cardiac AICD is present in the left chest wall. The heart is enlarged noting trace pericardial effusion. The coronary arteries are densely calcified. Lungs and pleural spaces: Again seen are changes of chronic interstitial lung disease. There is diffuse subpleural reticulation. Traction bronchiectasis is noted in the lower lobes. No honeycombing is seen. Intralobular septal thickening is seen throughout both lungs. There is diffuse airspace consolidation throughout both lungs, with mild spurring at the apices. There are small pleural effusions, right larger than left with associated atelectasis. The trachea and central airways are clear. There is no pneumothorax. Mediastinum: There are numerous mildly enlarged mediastinal lymph nodes which measure up to 14 mm short axis. Several containing calcifications. Violette: There are calcified right hilar lymph nodes. Note that the violette are not well assessed without IV contrast. Axillae: There is no axillary lymphadenopathy. Upper abdomen: Calcified granulomas are noted in the liver and spleen. Partially visualized upper abdominal viscera is within normal limits. Skeletal structures: The skeletal structures are osteopenic. Degenerative change is noted in the shoulders and thoracic spine. No lytic or blastic bony lesions are seen. Soft tissues: Gynecomastia is noted. IMPRESSION: 1. Streak and motion compromised examination. 2. Cardiomegaly an AICD with evidence of congestive failure. 3. Diffuse airspace consolidation throughout both lungs likely represents pulmonary edema. This could also be seen with multifocal pneumonia and/or ARDS. Clinical correlation will be essential. 4. Right larger than left pleural effusions. 5. Again seen are changes of chronic interstitial lung disease. This cannot be compared to previous due to extensive superimposed airspace consolidation. 6. Mediastinal lymphadenopathy is increased from previous. This is likely reactive. 7. Calcified mediastinal and hilar lymph nodes are unchanged. ACT 112: Negative or not required by law. Electronically signed by: Be Domínguez M.D. 06/25/2022 10:[address] 06/29/22 08:17 CT head/brain wo con CLINICAL HISTORY: Follow up on CT head 24 hours prior Technique: Contiguous axial CT images of the head were acquired from the base of the skull to the vertex without intravenous contrast administration. Images were viewed in brain, subdural and bone windows. Automated dose lowering techniques and/or adjustment according to patient size were utilized for this exam. Comparison: Prior CT head 06/28/2022 Findings: Areas of decreased attenuation are present in the periventricular and subcortical white matter bilaterally consistent with small vessel ischemic disease. Generalized cerebral atrophy with commensurate enlargement of the ventricles, sulci, and cisterns is also present. There is no acute intracranial hemorrhage or evidence of acute territorial infarction. No shift of the midline structures, mass effect, or extra-axial abnormalities are shown. Atherosclerotic calcifications are present in the intracranial segments of the internal carotid arteries. In the interval, there is near complete previously noted left subdural collection. Redemonstration of encephalomalacia in the left frontal lobe compatible with old infarct. Imaged portions of the paranasal sinuses and mastoid air cells are clear. The orbits appear normal. There are no acute fractures of the calvaria or scalp swelling. Impression: Interval near resolution of left subdural collection seen on prior exam. No acute abnormalities are seen. ACT 112: Negative or not required by law. Electronically signed by: Riley Angeles M.D. 06/29/2022 10:22 AM Renal Ultrasound 07/01/22 08:15 ULTRASOUND KIDNEYS AND BLADDER CLINICAL HISTORY: Acute renal insufficiency. COMPARISON STUDY: Abdominal CT dated 03/01/2022. TECHNIQUE: Real-time, grayscale, and color flow sonography of the kidneys and bladder is performed. Images are reviewed in the transverse and longitudinal planes. FINDINGS: Kidneys: The kidneys are atrophic and slightly echogenic indicative of medical renal disease. The right kidney measures 9.3 x 4.3 x 4.0 cm and the left kidney measures 10.3 x 5.3 x 4.5 cm. There is no hydronephrosis. No shadowing renal calculi are identified. A right upper pole cyst measures up to 2.1 cm. There is no sonographic evidence of contour deforming renal mass lesion. No perinephric fluid is identified. Bladder: The bladder is largely decompressed. The wall appears thi ckened/trabeculated indicating chronic outlet obstruction. Ureteral jets were not seen. IMPRESSION: 1. There is evidence of medical renal disease. 2. No hydronephrosis. 3. The appearance of the bladder suggests chronic outlet obstruction. ACT 112: Negative or not required by law. Electronically signed by: Be Domínguez M.D. 07/01/2022 1:11 PM (1) Anemia Anemia type: unspecified type Qualified Code(s): D64.9 - Anemia, unspecified
[2022-07-03] MEDS: FOLIC ACID 1 MG TAB PO SCH (11:36)
[2022-07-03] MEDS: MAGNESIUM OXIDE 400 MG TAB PO SCH ×2 (11:37→20:32)
[2022-07-03] MEDS: CHOLECALCIFEROL 1,000 UNITS 25 MCG TAB PO SCH (11:37)
--- NOTE | 2022-07-03 12:25 | Nephrology Progress Note ---
Date of Service July 03, 2022 Assessment & Plan (1) Acute on chronic renal failure: Plan: baseline creatinine mid ones; creatinine at baseline on admission 06/21. renal function was at baseline until 06/30 when it uptrended to peak at 2.2 - this is about the time that the diuretics stopped(getting better again 2.08 today ) urine sediment is inflamed w/ new microhematuria > AC was just recently stopped for this pt pt with mild electrolyte aberrations> mild hyperkalemia, mild hyponatremia, mild hyperphosphatemia, marked elevation in bicarb. no IV contrast; no extremes of blood pressure or pulse rate >>DDX is broad here>need to rule out obstruction; ATN is possible / even likeliest in the setting of acute downturn 48 hrs back clinically; pulmonary renal syndromes and other glomerular diseases on differential but no indication currently for renal bx, Renal USS Shows no obstruction with chronic outflow obstruction - renal functions improved. -use ethacrynic acid not lasix if further diuresis indicated, Can try albumin BID if BP is still low. - d/c Valtessa. -CK wnl -f/u pending serologies -f/u pending urine culture -ordered low K diet as well Nothing new to add today. Admission and Anticipated Discharge Date Admission Date: June 21, 2022 Subjective Patient seen and examined at bedside. He is sitting up on the bed; not in any acute distress. Has issues with BiPAP overnight; unable to stay on BiPAP for prolonged period of time. Review of Systems Review of Systems: Sob better No c/o cough or hemoptysis. Physical Exam Physical Exam: 07/02/22 05:33 07/02/22 05:33 Results & Data ([facility]) Vital Signs (Past 12 Hours) Vital Signs Temp Pulse Pulse Pulse Resp BP Pulse Ox 07/03/22 11:00 36.6 C 80 18 120/71 100 07/03/22 10:00 80 07/03/22 10:00 07/03/22 07:00 36.4 C L 84 18 113/75 100 07/03/22 07:16 76 18 100 07/03/22 03:00 36.9 C 68 20 130/69 100 07/03/22 00:40 74 16 93 O2 Del Method O2 Flow Rate 07/03/22 11:00 Nasal Cannula 4 07/03/22 10:00 07/03/22 10:00 Nasal Cannula 4 07/03/22 07:00 Nasal Cannula 4 07/03/22 07:16 Oxymask 7 07/03/22 03:00 Oxymask 10 07/03/22 00:40 Nasal Cannula 4 Laboratory Results 07/03/22 05:50 07/03/22 05:50
[2022-07-03 13:31] LABS: Partial Thromboplastin Ratio 2.4; Partial Thromboplastin Time 66.9 Seconds (21.0-31.0)
[2022-07-03] MEDS: HEPARIN SODIUM/DEXTROSE 25,000 UNITS/500 ML BAG IV SCH (17:51)
--- NOTE | 2022-07-03 20:16 | XRay Report ---
XR chest 1V portable CLINICAL HISTORY: Follow up on pulmonary infiltrates TECHNIQUE: Single frontal radiograph of the chest was obtained. Comparison: Comparison is made to chest radiograph 06/29/2022 FINDINGS: No lines and tubes are seen. Cardiomegaly is noted. Minimal improvement in bilateral patchy airspace opacities. Interstitial thickening persists. No evidence of pleural effusion or pneumothorax. IMPRESSION: Interval improvement in bilateral patchy airspace opacities. Redemonstration of diffuse interstitial thickening. Stable cardiomegaly. ACT 112: Negative or not required by law. Electronically signed by: Riley Angeles M.D. 07/03/2022 8:14 PM
[2022-07-03 20:17] LABS: Partial Thromboplastin Ratio 1.6; Partial Thromboplastin Time 44.7 Seconds (21.0-31.0)
[2022-07-03] MEDS: ATORVASTATIN 40 MG TAB PO SCH (20:32)
[2022-07-04] MEDS: ALBUT/IPRATROP 3MG/0.5MG NEB 3 ML VIAL NEB SCH ×4 (00:15→19:20)
[2022-07-04] MEDS: MoRPHine SULFATE 2 MG/ML CARP IV PRN (02:03)
[2022-07-04 03:57] LABS: Hematocrit (blood only) 28.7 % (40.1-51.0); Hemoglobin 8.9 g/dl (14.0-18.0); Mean Corpuscular Hemoglobin 31.4 pg (25.0-34.0); Mean Corpuscular Volume 101.4 fL (80.0-100.0); Platelet Count 364 K/uL (130-400); RDW Coefficient of Variation 22.3 % (11.5-14.5); RDW Standard Deviation 80.9 fL (36.4-46.3); Red Blood Count 2.83 M/uL (4.63-6.08); White Blood Count 14.15 K/ul (4.8-10.8)
[2022-07-04 04:23] LABS: Partial Thromboplastin Ratio 1.7
[2022-07-04 04:43] LABS: Albumin Globulin Ratio 0.9 (0.9-2); Albumin Level 3.3 gm/dl (3.4-5.0); Calcium 9.1 mg/dl (8.5-10.1); Creatinine Clr Calc Pharmacy 46.5 ml/min; Est GFR (African American) 48.8 ml/min; Est GFR (Non-African American) 42.1 ml/min; Globulin 3.7 gm/dl (2.5-4.0); Potassium 4.9 mmol/L (3.5-5.1)
[2022-07-04] MEDS: CHOLECALCIFEROL 1,000 UNITS 25 MCG TAB PO SCH (10:49)
[2022-07-04] MEDS: MAGNESIUM OXIDE 400 MG TAB PO SCH ×2 (10:49→20:50)
[2022-07-04] MEDS: predniSONE 20 MG TAB PO SCH (10:50)
[2022-07-04] MEDS: FOLIC ACID 1 MG TAB PO SCH (10:50)
[2022-07-04] MEDS: CYANOCOBALAMIN (B-12) 100 MCG TABLET PO SCH (10:51)
[2022-07-04] MEDS: CETIRIZINE HCL 10 MG TABLET PO SCH (10:52)
[2022-07-04] MEDS: PANTOprazole 40 MG TAB PO SCH (10:53)
[2022-07-04] MEDS: allopurinoL 100 MG TAB PO SCH (10:53)
[2022-07-04] MEDS: METOPROLOL SUCC 50MG EXT REL TAB PO SCH (10:54)
[2022-07-04] MEDS: SULFAMETHOXAZOLE/TRIMETHOPRIM DS 800/160MG TAB PO SCH (10:54)
--- NOTE | 2022-07-04 11:52 | Hospitalist Progress Note ---
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 Hospital course 06/21- presented to ED with oxygen saturation in 70s, required 6L oxymask on admission. Baseline of 2 L NC. Started on iv lasix 20 mg 06/22- Echo with EF 35-40%. Seen by cardio- continued on iv lasix bid. Started on Empiric Ceftriaxone/doxy for persistent leucocytosis and immunocompromised state. 06/23- Still on 5 L NC. Iv lasix increased to 20 mg tid 06/24- Worsening hypoxia to 10 L oxymask. CXR with worsening CHF. IV lasix increased to 40 q8hr 06/25- CT with pulm edema > PNA. Seen by pulm. started on BIPAP, continue iv lasix 06/26- CXR shows minimal improvement- iv lasix increased to 60 mg 06/27- Pulm plans for bronchoscopy, continue iv lasix 60 bid 06/28- patient underwent bronchoscopy. Was found on the floor unresponsive. Was found to have acute hypercapnic respiratory failure. Transferred to ICU for further care. CT head was done ; did not show any acute abnormality. Left subdural collection was seen. Follow-up in 24 to 48 hours was recommended. 06/29-overnight in the ICU, patient's mental status improved. He was on as needed BiPAP. His mentation was back to baseline. Repeat CT head was done; nterval near resolution of left subdural collection seen on prior exam. No acute abnormalities are seen. Patient was transferred to floors. Patient completed 7-day course of ceftriaxone and doxycycline. 07/01- His creatinine uptrended to 2.22; urine output of 500 cc in last 24 hours. Nephrology consulted. Subcu heparin started for DVT prophylaxis 07/02-no signs of any bleeding. Low-dose heparin drip started for A. fib and history of PE. CXR 06/21- 1. Cardiomegaly and AICD with evidence of congestive failure and pulmonary edema. CXR 06/24- Cardiomegaly with progressive mixed interstitial and alveolar opacities. Findings are suggestive of pulmonary edema superimposed on chronic fibrosis. CT chest 06/25 1. Streak and motion compromised examination. 2. Cardiomegaly an AICD with evidence of congestive failure. 3. Diffuse airspace consolidation throughout both lungs likely represents pulmonary edema. This could also be seen with multifocal pneumonia and/or ARDS. Clinical correlation will be essential. 4. Right larger than left pleural effusions. 5. Again seen are changes of chronic interstitial lung disease. This cannot be compared to previous due to extensive superimposed airspace consolidation. 6. Mediastinal lymphadenopathy is increased from previous. This is likely reactive. 7. Calcified mediastinal and hilar lymph nodes are unchanged. CXR 06/26- 1. Interstitial thickening and multifocal airspace opacities, minimally improved since prior exam. The findings could reflect pulmonary edema, pneumonia or ARDS. Bronchoscopy on normal inspection bronchoscopy. BAL in lingula suggestive of possible pulmonary hemorrhage. Acute on chronic respiratory failure with hypoxia- likely multifactorial with his CHF, ILD, lung cancer Acute Hypercapnic Respiratory Failure Altered mental status 2/2 Hypercapnic Respiratory Failure . Plan: Patient is status post 7 days of antibiotics. -We will continue on duo nebs every 6 hours. Prednisone as per pulmonology; currently on 40 mg once daily. Plan is to taper it 10 mg every week( will go down on dose to 30mg on 07/07). He is also started on Bactrim Monday and Monday for PCP prophylaxis while on steroids. Heparin restarted. On heparin drip low-dose without bolus.. We will switch to oral anticoagulation if he continues to do well. -Holding off on Lasix currently due to increase in his creatinine. He appears to be euvolemic presently. Nephrology recommends ethacrynic acid if further diuresis needed. -Continue bipap and supplemental oxygen wean off as tolerated -PT OT recommends rehab; employment evaluator/case manager on board. YELENA on CKD -Baseline creatinine is around 1.5; patient creatinine up trended to 2.2; improved today to 1.6 which is similar to previous day -Urine output conitnues to improve -USG renalno evidence of hydronephrosis -Urine culture unremarkable Plan; -We will continue to monitor his urine output. BMP daily. -Switch his metoprolol succinate to once daily; hopefully improve his blood pressure We will hold his digoxin given his YELENA for now. Acute on chronic systolic heart failure - Echo with EF 35-40% -X-ray done on 07/03 shows improvement in congestion. Squamous cell carcinoma lung - Follows with Dr. Petersen of [facility] onc and was seen in follow up earlier today. Chemo regimen includes gemcitabine and the carboplatin chemotherapy which was started in December 2021 - Last received chemo 06/17/22 Anemia - Recent admissions with severe anemia requiring prbc transfusions - Receiving Aranesp for chronic anemia every 3 weeks - Hgb stable >8. 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 CT chest reviewed as above - Studies from the bronchoscopy so far unremarkable. No evidence of recurrent malignancy on bronchoscopy. CAD (coronary artery disease) - Stable. Continue statin, Toprol H/o DVT/PE in 2016- Xarelto on hold due to pulmonary hemorrage. heparin drip is started. Paroxysmal atrial fibrillation- Continue Toprol. digoxin on hold. Discussed with cardiology; can hold digoxin if ventricular rate continues to be controlled. COPD-started on duo nebs every 6 hours and steroids Hypomagnesemia- repleted. DVT ppx: heparin drip Dispo: Rehab when medically stable Code status: Full code Admission and Anticipated Discharge Date Admission Date: June 21, 2022 Subjective Patient seen and examined at bedside. He is comfortably sitting up on the bed; says his breathing is getting better. Urine output continues to improve Telemetry shows A. fib with controlled ventricular rate; intermittent pacing. Review of Systems Review of Systems: All systems reviewed & are unremarkable except as noted in Subjective Physical Exam Physical Exam: General: Awake alert oriented x3. Not in any acute distress. Chest: Bilateral basal crackles present. Slightly decreased from previous day. CVS: Irregular, normal heart sounds, no murmur Abdomen: Soft, non tender, not distended, normal bowel sounds Neuro: Alert, oriented x3. Extremities: trace edema Results & Data Results & Data ([facility]) Vital Signs (Past 12 Hours) Vital Signs Temp Pulse Pulse Pulse Resp BP Pulse Ox 07/04/22 11:32 36.4 C L 75 18 116/71 100 07/04/22 07:40 36.6 C 107 H 18 132/93 95 07/04/22 08:16 66 07/04/22 08:10 07/04/22 07:24 71 19 97 07/04/22 07:24 71 19 97 07/04/22 02:45 36.7 C 86 18 124/76 99 07/04/22 00:15 85 16 94 O2 Del Method O2 Flow Rate FiO2 07/04/22 11:32 Oxymask 4 07/04/22 07:40 BiPAP 07/04/22 08:16 07/04/22 08:10 Oxymask 4 07/04/22 07:24 BiPAP 07/04/22 07:24 40 07/04/22 02:45 Oxymask 5 07/04/22 00:15 Nasal Cannula 2 (1) Anemia Anemia type: unspecified type Qualified Code(s): D64.9 - Anemia, unspecified
--- NOTE | 2022-07-04 12:46 | Pulmonology Progress Note ---
Date of Service July 04, 2022 Assessment & Plan (1) Acute on chronic respiratory failure with hypoxia: (2) Acute decompensated heart failure: (3) Squamous cell carcinoma lung: Laterality: unspecified laterality Qualified Code(s): C34.90 - Malignant neoplasm of unspecified part of unspecified bronchus or lung (4) ILD (interstitial lung disease): Plan Impression: 71-year-old male with a history of interstitial lung disease and newly diagnosed squamous cell carcinoma of the lung metastatic to the liver on systemic chemotherapy. He developed progressive hypoxemic respiratory failure w ith diffuse pulm infiltrates and bronchoscopy was performed which revealed BAL findings consistent with alveolar hemorrhage. Cytology was negative. He has been placed on empiric steroids and appears to be improving. He has type III respiratory failure, hypoxemic and hypercarbic. Recommendations: 1. Pulmonary hemorrhage: MIRANDA and ANCA negative. ESR and CRP elevated. Suspect this may be related to chemotherapy and anticoagulation. Okay to transition to full systemic anticoagulation for A. fib if needed. If he does well for 24 to 48 hours, can restart oral anticoagulation in the form of DOAC or Coumadin. We will continue prednisone to 40 mg a day as well as Bactrim prophylaxis 1 double strength tablet every Monday, Monday, and Monday until prednisone dose goes below 20 mg a day. Steroids can be tapered by 10 mg every week until off. He will need to follow-up with his outpatient gang vibrator operator, Dr. Lopez with a follow-up CT scan in 4 to 6 weeks. PJP PCR still pending, however Fungitell was negative. 2. Metastatic squamous cell carcinoma the lung. No evidence of recurrent malignancy on bronchoscopy 3. Interstitial lung disease: Unclear outpatient work-up at this point time. The patient's not really candidate for surgical lung biopsy at this point time 4. COPD/hypercarbic respiratory failure: Patient's not bronchospastic currently. Continue current inhalers. Patient was encouraged to remain compliant with nocturnal noninvasive positive pressure ventilation. Continue supplemental oxygen titrated to keep oxygen saturations at around 88 to 90%. Would not try and target oxygen saturations higher than this given his concomitant hypercarbia. 5. Patient is completed a course of antibiotics for possible pneumonia. Cultures are negative. No indication for additional antibiotics currently. 6. Patient likely requires acute rehab or SNF. Pulmonary to sign off at this time. Please call with questions. Admission and Anticipated Discharge Date Admission Date: June 21, 2022 Subjective Patient seen and examined. He is anxious about wearing BiPAP again. He notes that he does not tolerate the pressure well. Otherwise he is saturating well and denies any shortness of breath at rest. He is accompanied by his family at bedside including his . Review of Systems Review of Systems: All systems reviewed & are unremarkable except as noted in HPI & below Physical Exam Constitutional: WD/WN, vitals as above Respiratory: normal respiratory effort, lungs clear to auscultation no respiratory distress, no labored breathing and not tachypneic Auscultation: + diminished lung sounds, + crackles and + rhonchi; no wheezes Cardiovascular: RRR, no murmur, no edema Gastrointestinal (Abdomen): normal bowel sounds, soft, nontender, no hepatosplenomegaly Musculoskeletal: Extremities: extremities normal to inspection Skin: no rashes, warm and dry Lymphatic: no cervical lymphadenopathy Results & Data Results & Data ([facility]) Vital Signs (Past 12 Hours) Vital Signs Temp Pulse Pulse Pulse Resp BP Pulse Ox 07/04/22 11:32 36.4 C L 75 18 116/71 100 07/04/22 07:40 36.6 C 107 H 18 132/93 95 07/04/22 08:16 66 07/04/22 08:10 07/04/22 07:24 71 19 97 07/04/22 07:24 71 19 97 07/04/22 02:45 36.7 C 86 18 124/76 99 O2 Del Method O2 Flow Rate FiO2 07/04/22 11:32 Oxymask 4 07/04/22 07:40 BiPAP 07/04/22 08:16 07/04/22 08:10 Oxymask 4 07/04/22 07:24 BiPAP 07/04/22 07:24 40 07/04/22 02:45 Oxymask 5 PG Care Time/CCT Total # of Minutes Spent Total Time Spent with Patient: Total time spent is greater than 50% in coordination of care (as documented) at patient's floor/unit and/or counseling patient: Coding Level of Care Code 78423 Subseq Hosp Care Lvl 2 Diagnoses Acute on chronic respiratory failure with hypoxia J96.21 Acute decompensated heart failure I50.9 Squamous cell carcinoma lung C34.90 Laterality: unspecified laterality ILD (interstitial lung disease) J84.9
[2022-07-04] MEDS: ATORVASTATIN 40 MG TAB PO SCH (20:50)
[2022-07-04] MEDS: HEPARIN SODIUM/DEXTROSE 25,000 UNITS/500 ML BAG IV SCH (22:02)
[2022-07-05] MEDS: ALBUT/IPRATROP 3MG/0.5MG NEB 3 ML VIAL NEB SCH ×4 (00:19→19:41)
[2022-07-05 05:38] LABS: Hematocrit (blood only) 30.2 % (40.1-51.0); Hemoglobin 9.3 g/dl (14.0-18.0); Mean Corpuscular Hemoglobin 31.8 pg (25.0-34.0); Mean Corpuscular Hgb Conc 30.8 g/dL (32.0-36.0); Mean Corpuscular Volume 103.4 fL (80.0-100.0); Mean Platelet Volume 10.7 fL (9.4-12.4); Platelet Count 369 K/uL (130-400); RDW Coefficient of Variation 22.5 % (11.5-14.5); RDW Standard Deviation 81.5 fL (36.4-46.3); Red Blood Count 2.92 M/uL (4.63-6.08); White Blood Count 13.06 K/ul (4.8-10.8)
[2022-07-05 06:03] LABS: Albumin Level 3.5 gm/dl (3.4-5.0); BUN Creatinine Ratio 43.7 (10-20); Calcium 9.4 mg/dl (8.5-10.1); Creatinine Clr Calc Pharmacy 47.1 ml/min; Est GFR (African American) 49.6 ml/min; Est GFR (Non-African American) 42.8 ml/min; Globulin 3.6 gm/dl (2.5-4.0); Partial Thromboplastin Ratio 1.9; Potassium 4.7 mmol/L (3.5-5.1); Total Protein 7.1 gm/dl (6.0-8.3)
[2022-07-05 06:17] LABS: Partial Thromboplastin Time 52.2 Seconds (21.0-31.0)
[2022-07-05] MEDS: CETIRIZINE HCL 10 MG TABLET PO SCH (08:54)
[2022-07-05] MEDS: predniSONE 20 MG TAB PO SCH (08:54)
[2022-07-05] MEDS: allopurinoL 100 MG TAB PO SCH (08:54)
[2022-07-05] MEDS: METOPROLOL SUCC 50MG EXT REL TAB PO SCH (08:54)
[2022-07-05] MEDS: CYANOCOBALAMIN (B-12) 100 MCG TABLET PO SCH (08:54)
[2022-07-05] MEDS: PANTOprazole 40 MG TAB PO SCH (08:54)
--- NOTE | 2022-07-05 10:55 | Hospitalist Progress Note ---
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 Hospital course 06/21- presented to ED with oxygen saturation in 70s, required 6L oxymask on admission. Baseline of 2 L NC. Started on iv lasix 20 mg 06/22- Echo with EF 35-40%. Seen by cardio- continued on iv lasix bid. Started on Empiric Ceftriaxone/doxy for persistent leucocytosis and immunocompromised state. 06/23- Still on 5 L NC. Iv lasix increased to 20 mg tid 06/24- Worsening hypoxia to 10 L oxymask. CXR with worsening CHF. IV lasix increased to 40 q8hr 06/25- CT with pulm edema > PNA. Seen by pulm. started on BIPAP, continue iv lasix 06/26- CXR shows minimal improvement- iv lasix increased to 60 mg 06/27- Pulm plans for bronchoscopy, continue iv lasix 60 bid 06/28- patient underwent bronchoscopy. Was found on the floor unresponsive. Was found to have acute hypercapnic respiratory failure. Transferred to ICU for further care. CT head was done ; did not show any acute abnormality. Left subdural collection was seen. Follow-up in 24 to 48 hours was recommended. 06/29-overnight in the ICU, patient's mental status improved. He was on as needed BiPAP. His mentation was back to baseline. Repeat CT head was done; nterval near resolution of left subdural collection seen on prior exam. No acute abnormalities are seen. Patient was transferred to floors. Patient completed 7-day course of ceftriaxone and doxycycline. 07/01- His creatinine uptrended to 2.22; urine output of 500 cc in last 24 hours. Nephrology consulted. Subcu heparin started for DVT prophylaxis 07/02-no signs of any bleeding. Low-dose heparin drip started for A. fib and history of PE. 07/05-patient tolerating heparin drip. Anticoagulation changed to Xarelto as per pulmonology recommendation. CXR 06/21- 1. Cardiomegaly and AICD with evidence of congestive failure and pulmonary edema. CXR 06/24- Cardiomegaly with progressive mixed interstitial and alveolar opacities. Findings are suggestive of pulmonary edema superimposed on chronic fibrosis. CT chest 06/25 1. Streak and motion compromised examination. 2. Cardiomegaly an AICD with evidence of congestive failure. 3. Diffuse airspace consolidation throughout both lungs likely represents pulmonary edema. This could also be seen with multifocal pneumonia and/or ARDS. Clinical correlation will be essential. 4. Right larger than left pleural effusions. 5. Again seen are changes of chronic interstitial lung disease. This cannot be compared to previous due to extensive superimposed airspace consolidation. 6. Mediastinal lymphadenopathy is increased from previous. This is likely reactive. 7. Calcified mediastinal and hilar lymph nodes are unchanged. CXR 06/26- 1. Interstitial thickening and multifocal airspace opacities, minimally improved since prior exam. The findings could reflect pulmonary edema, pneumonia or ARDS. Bronchoscopy on normal inspection bronchoscopy. BAL in lingula suggestive of possible pulmonary hemorrhage. Acute on chronic respiratory failure with hypoxia- likely multifactorial with his CHF, ILD, lung cancer Acute Hypercapnic Respiratory Failure Altered mental status 2/2 Hypercapnic Respiratory Failure, resolved . Plan: Patient is status post 7 days of antibiotics (Ceftriaxone and Doxycycline) -We will continue on duo nebs every 6 hours. Prednisone as per pulmonology; currently on 40 mg once daily. Plan is to taper it 10 mg every week( will go down on dose to 30mg on 07/07). He is also started on Bactrim Monday and Monday for PCP prophylaxis while on steroids. Heparin drip changed to Xarelto on 07/05. -Holding off on Lasix as he is euvolemic. He appears to be euvolemic presently. Nephrology recommends ethacrynic acid if further diuresis needed. -Continue bipap and supplemental oxygen wean off as tolerated -PT OT recommends rehab; case management assistant on board. YELENA on CKD -Baseline creatinine is around 1.5; patient creatinine up trended to 2.2; improved today to 1.58 which is similar to previous day -Urine output continues to improve -[facility]G renalno evidence of hydronephrosis -Urine culture unremarkable Plan; -We will continue to monitor his urine output. BMP daily. -His metoprolol was decreased to once daily. Improvement in blood pressure resulting in improvement of Cr. will continue to monitor. Leukocytosis: -Likely related with steroids use. No signs of infection. - Continue to monitor. Acute on chronic systolic heart failure - Echo with EF 35-40% -X-ray done on 07/03 shows improvement in congestion. Squamous cell carcinoma lung - Follows with Dr. Petersen of [facility] onc and was seen in follow up earlier today. Chemo regimen includes gemcitabine and the carboplatin chemotherapy which was started in December 2021 - Last received chemo 06/17/22 Anemia - Recent admissions with severe anemia requiring prbc transfusions - Receiving Aranesp for chronic anemia every 3 weeks - Hgb stable >8. 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 C - Studies from the bronchoscopy so far unremarkable. No evidence of recurrent malignancy on bronchoscopy. CAD (coronary artery disease) - Stable. Continue statin, Toprol H/o DVT/PE in 2016-Xarelto restarted. Paroxysmal atrial fibrillation- Continue Toprol. digoxin on hold. Discussed with cardiology; can hold digoxin if ventricular rate continues to be controlled. COPD-started on duo nebs every 6 hours and steroids Hypomagnesemia- repleted. DVT ppx: Xarelto Dispo: Rehab when medically stable Code status: Full code Admission and Anticipated Discharge Date Admission Date: June 21, 2022 Subjective Patient seen and examined at bedside. He is sitting up on the bed; not in any acute distress. He feels that his breathing has improved today as well. He continues to be on heparin drip; no signs of bleeding. No signs of worsening respiratory distress. Telemetry shows atrial fibrillation with ventricular rate in 80s. He also has intermittent paced rhythm. Review of Systems Review of Systems: All systems reviewed & are unremarkable except as noted in Subjective Physical Exam Physical Exam: General: Awake alert oriented x3. Not in any acute distress. Chest: Bilateral end expiratory crackles heard CVS: Irregular, normal heart sounds, no murmur Abdomen: Soft, non tender, not distended, normal bowel sounds Neuro: Alert, oriented x3. Extremities: trace edema Results & Data Results & Data ([facility]) Vital Signs (Past 12 Hours) Vital Signs Temp Pulse Pulse Pulse Resp BP Pulse Ox 07/05/22 07:18 83 07/05/22 07:18 07/05/22 07:15 78 18 93 07/05/22 07:08 36.3 C L 79 79 20 127/65 95 07/05/22 03:00 36.4 C L 74 16 144/102 H 97 07/05/22 00:20 78 20 95 07/04/22 23:16 36.4 C L 77 18 106/72 99 07/04/22 23:10 80 07/04/22 22:58 87 23 89 L 07/04/22 22:55 76 28 H 89 L O2 Del Method O2 Flow Rate 07/05/22 07:18 07/05/22 07:18 Oxymask 4 07/05/22 07:15 Oxymask 3 07/05/22 07:08 4 07/05/22 03:00 Oxymask 5 07/05/22 00:20 Oxymask 5 07/04/22 23:16 Oxymask 07/04/22 23:10 07/04/22 22:58 4 07/04/22 22:55 4 (1) Anemia Anemia type: unspecified type Qualified Code(s): D64.9 - Anemia, unspecified
[2022-07-05] MEDS: FOLIC ACID 1 MG TAB PO SCH (11:25)
[2022-07-05] MEDS: MAGNESIUM OXIDE 400 MG TAB PO SCH ×2 (11:25→22:06)
[2022-07-05] MEDS: CHOLECALCIFEROL 1,000 UNITS 25 MCG TAB PO SCH (11:25)
--- NOTE | 2022-07-05 11:28 | Nephrology Progress Note ---
Date of Service July 05, 2022 Assessment & Plan Admission and Anticipated Discharge Date Admission Date: June 21, 2022 Subjective Assessment & Plan (1) Acute on chronic renal failure: Plan: baseline creatinine mid ones; creatinine at baseline on admission 06/21. renal function was at baseline until 06/30 when it uptrended to peak at 2.2 - this is about the time that the diuretics stopped(getting better again 2.08 today ) urine sediment is inflamed w/ new microhematuria > AC was just recently stopped for this pt pt with mild electrolyte aberrations> mild hyperkalemia, mild hyponatremia, mild hyperphosphatemia, marked elevation in bicarb. no IV contrast; no extremes of blood pressure or pulse rate DDX is broad here>need to rule out obstruction; ATN is possible / even likeliest in the setting of acute downturn 48 hrs back clinically; pulmonary renal syndromes and other glomerular diseases on differential but no indication currently for renal bx, Renal USS Shows no obstruction withchronic outflow obstruction - renal functions improved and pretty much back to baseline -f/u pending serologies--low Likelihood though Chronic elevated Bicarb--need this as metabolic compensation for severe Hypercarbia he has. Continue same and will sign off for now. Subjective Patient seen and examined at bedside. On O2 face mask now. unable to stay on BiPAP for prolonged period of time. Review of Systems Review of Systems: Sob better No c/o cough or hemoptysis. Physical Exam---Appears Sick and frail. Mod resp distress. chest --b/l wheezing and some crackles. CVS--RRR Ext--no edema. Abd--soft non tender Results & Data ([facility]) Vital Signs (Past 12 Hours) Vital Signs Temp Pulse Pulse Pulse Resp BP Pulse Ox 07/05/22 07:18 83 07/05/22 07:18 07/05/22 07:15 78 18 93 07/05/22 07:08 36.3 C L 79 79 20 127/65 95 07/05/22 03:00 36.4 C L 74 16 144/102 H 97 07/05/22 00:20 78 20 95 O2 Del Method O2 Flow Rate 07/05/22 07:18 07/05/22 07:18 Oxymask 4 07/05/22 07:15 Oxymask 3 07/05/22 07:08 4 07/05/22 03:00 Oxymask 5 07/05/22 00:20 Oxymask 5
[2022-07-05] MEDS: ATORVASTATIN 40 MG TAB PO SCH (22:00)
[2022-07-05] MEDS: RIVAROXABAN 15 MG TAB PO SCH (22:00)
[2022-07-05 22:01] LABS: Pneumocystis jirovecii PCRQual NOT DETECTED; Pneumocystis jirovecii Source BRONCHIAL LAVAGE
[2022-07-06] MEDS: ALBUT/IPRATROP 3MG/0.5MG NEB 3 ML VIAL NEB SCH ×2 (00:05→06:50)
[2022-07-06 06:23] LABS: Hemoglobin 9.3 g/dl (14.0-18.0); Mean Corpuscular Hemoglobin 31.7 pg (25.0-34.0); Mean Corpuscular Volume 102.4 fL (80.0-100.0); Nucleated RBC # (auto) 0.03 K/uL (0-0); Nucleated RBC % (auto) 0.2 %; Platelet Count 398 K/uL (130-400); RDW Coefficient of Variation 22.9 % (11.5-14.5); RDW Standard Deviation 83.1 fL (36.4-46.3); Red Blood Count 2.93 M/uL (4.63-6.08); White Blood Count 13.14 K/ul (4.8-10.8)
[2022-07-06 06:53] LABS: Alanine Aminotransferase 27 U/L (7-52); Albumin Globulin Ratio 0.9 (0.9-2); Albumin Level 3.4 gm/dl (3.4-5.0); Alkaline Phosphatase 153 U/L (34-104); Aspartate Aminotransferase 21 U/L (13-39); BUN Creatinine Ratio 39.2 (10-20); Blood Urea Nitrogen 60 mg/dl (6-23); Calcium 9.4 mg/dl (8.5-10.1); Carbon Dioxide > 45 mmol/L (21-32); Chloride 91 mmol/L (98-107); Creatinine Clr Calc Pharmacy 53.1 ml/min; Est GFR (African American) 51.5 ml/min; Est GFR (Non-African American) 44.5 ml/min; Globulin 3.6 gm/dl (2.5-4.0); Glucose 117 mg/dl (70-99(Fasting)); Potassium 4.6 mmol/L (3.5-5.1); Sodium 140 mmol/L (136-145)
[2022-07-06] MEDS: predniSONE 20 MG TAB PO SCH (08:14)
[2022-07-06] MEDS: PANTOprazole 40 MG TAB PO SCH (08:14)
[2022-07-06] MEDS: CETIRIZINE HCL 10 MG TABLET PO SCH (08:14)
[2022-07-06] MEDS: SULFAMETHOXAZOLE/TRIMETHOPRIM DS 800/160MG TAB PO SCH (08:14)
[2022-07-06] MEDS: METOPROLOL SUCC 50MG EXT REL TAB PO SCH (08:14)
[2022-07-06] MEDS: allopurinoL 100 MG TAB PO SCH (08:15)
[2022-07-06] MEDS: CYANOCOBALAMIN (B-12) 100 MCG TABLET PO SCH (08:15)
[2022-07-06 11:00] LABS: Base Excess ABG 23.2 mEq/L (-9-1.8); HCO3 ABG 52 mmol/L (19-24); Oxygen Saturation ABG 99.9 % (90-95); PCO2 ABG 75 mmHg (35-46); PO2 ABG 124 mmHg (80-95); pH ABG 7.45 (7.35-7.45)
[2022-07-06 11:05] LABS: Allen Test Pos (Pos)
[2022-07-06] MEDS: MAGNESIUM OXIDE 400 MG TAB PO SCH ×2 (11:28→21:33)
[2022-07-06] MEDS: CHOLECALCIFEROL 1,000 UNITS 25 MCG TAB PO SCH (11:28)
[2022-07-06] MEDS: POLYETHYLENE (MIRALAX) 17 GM PACK PO PRN (11:28)
[2022-07-06] MEDS: FOLIC ACID 1 MG TAB PO SCH (11:28)
--- NOTE | 2022-07-06 12:59 | Hospitalist Progress Note ---
Date of Service July 06, 2022 Assessment & Plan (1) Acute on chronic respiratory failure with hypoxia: Plan: Initially hypoxic 2/2 acute heart failure with reduced ejection fraction. He then became hypercapnic and required BIPAP in the ICU. He was doing well but over the past 24-48 hours he has developed worsening tachypnea. Increased fluid on repeat CXR today and no evidence of hypercapnia on repeat ABG today. Likely worsening fluid overload after lasix was held in setting of YELENA. Restart this now. (2) Acute decompensated heart failure: Plan: Plan as above. (3) Acute on chronic renal failure: Plan: Improved creatinine. Will monitor closely with Lasix back on board now. (4) ILD (interstitial lung disease): Plan: Prednisone taper with bactrim prophylaxis (5) Lung cancer: Plan: h/o lung cancer with metastatic disease. Per oncology (6) Paroxysmal atrial fibrillation: Plan: persistent afib rhythm on telemetry. Rate is controlled with metoprolol. Anticoagulated with Xarelto. (7) Anemia: Plan: chronic, multifactorial. Cont to monitor. (8) DVT prophylaxis: Plan: Xarelto Full Code Dispo-cont PCU monitoring. Leah Wong DO [facility] Hospitalist Admission and Anticipated Discharge Date Admission Date: June 21, 2022 Subjective 71 yo M History of lung cancer with mets to the liver on home oxygen and currently receiving chemotherapy. She presented with acute on chronic hypoxic respiratory failure and acute decompensated heart failure with reduced ejection fraction. He was started on intravenous diuretics around 823 and on the 26 developed worsening hypoxia to 10 L oxygen mask. Pulmonary was consulted and performed a bronchoscopy on 06/28 revealing evidence of possible pulmonary hemorrhage. He then became hypercapnic and required transfer to the ICU with BiPAP therapy. A CT of the head was performed after a fall and he was found to have a left subdural hematoma. A repeat scan 24 hours later noted interval near resolution of left subdural collection seen on previous exam. For treatment of the pulmonary hemorrhage serologies to date are negative and he was placed on empiric steroids with Bactrim prophylaxis. He also developed an acute renal failure likely secondary to diuretic therapy. His last dose of diuretic was given approximately 8 days ago. This is a patient with a reduced ejection fraction who is on chronic daily Lasix at home 40 mg. Today his breathing was shallow and rapid although oxygen levels maintained at 3 L nasal cannula or so. A repeat chest x-ray was performed revealing hazy bilateral airspace opacities and trace bilateral pleural effusions. Image was suggestive of pulmonary edema per my wet read especially when compared to prior image. ABG was checked and there was no evidence of hypercapnia. Discussed the plan with the patient, primary RN and family at the bedside and on the phone. Review of Systems Review of Systems: All systems were reviewed and negative except indicated abo ve Physical Exam Physical Exam: CONSTITUTIONAL: WNWD, vitals as above, generally NAD but with rapid shallow breathing. EYES: normal conjunctivae, no scleral icterus ENT: external ear and nose normal, MMM NECK: trachea midline RESPIRATORY: clear to auscultation bilaterally, no crackles, rales or wheezes, normal respiratory effort CARDIOVASCULAR: regular rate and rhythm, S1 and 2 heard without murmurs, gallops or rubs, no JVD, no peripheral edema CHEST: inspection of chest was normal GASTROINTESTINAL: soft, nontender, ND MUSCULOSKELETAL: strength 5/5 throughout, head is normocephalic and atraumatic, SKIN: warm and dry, NEUROLOGIC: CN 2-12 grossly intact, no sensory deficit, normal cognition, normal speech, no tremor PSYCHIATRIC: alert cooperative and oriented to person, place and time. Euthymic mood, makes good eye contact, language grossly intact, recent and remote memory grossly intact. Results & Data Results & Data ([facility]) Vital Signs (Past 12 Hours) Vital Signs Temp Pulse Pulse Resp BP BP Pulse Ox 07/06/22 11:36 36.0 C L 82 20 114/77 99 07/06/22 09:00 90 07/06/22 09:00 07/06/22 08:18 116/75 90 07/06/22 06:50 91 H 22 99 07/06/22 03:00 36.1 C L 74 20 127/86 94 O2 Del Method O2 Flow Rate 07/06/22 11:36 Oxymask 6 07/06/22 09:00 Oxymask 3 07/06/22 09:00 Oxymask 8 07/06/22 08:18 Oxymask 3 07/06/22 06:50 Oxymask 3 07/06/22 03:00 Oxymask 3 Laboratory Results Short CBC 07/06/22 Range/Units 05:44 WBC 13.14 H (4.8-10.8) K/ul Hgb 9.3 L (14.0-18.0) g/dl Hct 30.0 L (40.1-51.0) % Plt Count 398 (130-400) K/uL BMP 07/06/22 05:44 Sodium 140 Potassium 4.6 Chloride 91 L Carbon Dioxide > 45 H* BUN 60 H Creatinine 1.53 H Glucose 117 H Calcium 9.4 Liver Function 07/06/22 Range/Units 05:44 Total Bilirubin 1.0 (0.2-1.0) mg/dl AST 21 (13-39) U/L ALT 27 (7-52) U/L Alkaline Phosphatase 153 H (34-104) U/L Albumin 3.4 (3.4-5.0) gm/dl Diagnostic Findings Chest X-Ray 07/06/22 09:56 XR chest 1V portable HISTORY: Increase shortness of breath. COMPARISON: Chest 07/03/2022. FINDINGS: No pneumothorax. Left-sided pacemaker/defibrillator is again noted. The heart remains borderline enlarged. Near diffuse reticulonodular interstitial thickening and hazy bilateral airspace opacities persist. There are trace bilateral pleural effusions, unchanged. IMPRESSION: No significant change in the reticulonodular interstitial thickening, hazy bilateral airspace opacities, and trace bilateral pleural effusions. ACT 112: Negative or not required by law. Electronically signed by: Reza Shanks M.D. 07/06/2022 1:22 PM Medications Administered Current Inpatient Medications Acetaminophen (Acetaminophen 325 Mg Tab) 650 mg PO Q4H PRN PRN Reason: Pain or Fever Stop: 07/21/22 21:34 Last Admin: 06/21/22 22:00 Dose: 650 mg Albuterol (Albut/Ipratrop 3mg/0.5mg Neb 3 Ml Vial) 3 ml NEB Q6R PRN; Protocol PRN Reason: SOB/wheezin Stop: 07/30/22 12:59 Last Admin: 07/06/22 15:46 Dose: 3 ml Allopurinol (Allopurinol 100 Mg Tab) 100 mg PO QAM [facility] Stop: 07/22/22 08:59 Last Admin: 07/06/22 08:15 Dose: 100 mg Atorvastatin Calcium (Atorvastatin 40 Mg Tab) 40 mg PO HS [facility] Stop: 07/21/22 20:59 Last Admin: 07/05/22 22:00 Dose: 40 mg Benzonatate (Benzonatate 100 Mg Capsule) 200 mg PO TID PRN PRN Reason: Cough Stop: 07/21/22 20:25 Cetirizine HCl (Cetirizine Hcl 10 Mg Tablet) 5 mg PO QAM [facility] Stop: 07/22/22 08:59 Last Admin: 07/06/22 08:14 Dose: 5 mg Cyanocobalamin (Cyanocobalamin (B-12) 100 Mcg Tablet) 100 mcg PO DAILY [facility] Stop: 07/22/22 08:59 Last Admin: 07/06/22 08:15 Dose: 100 mcg Folic Acid (Folic Acid 1 Mg Tab) 1 mg PO QDL [facility] Stop: 07/22/22 11:29 Last Admin: 07/06/22 11:28 Dose: 1 mg Furosemide (Furosemide 40 Mg/4 Ml Vial) 40 mg IV DAILY [facility] Stop: 08/06/22 08:59 Magnesium Oxide (Magnesium Oxide 400 Mg Tab) 400 mg PO BID@1100,2300 [facility] Stop: 07/26/22 10:59 Last Admin: 07/06/22 11:28 Dose: 400 mg Metoprolol Succinate (Metoprolol Succ 50mg Ext Rel Tab) 50 mg PO DAILY [facility] Stop: 08/01/22 08:59 Last Admin: 07/06/22 08:14 Dose: 50 mg Ondansetron HCl (Ondansetron Inj 2 Mg/Ml 2 Ml Vial) 4 mg IV Q6H PRN PRN Reason: Nausea Stop: 07/21/22 21:34 Pantoprazole Sodium (Pantoprazole 40 Mg Tab) 40 mg PO DAILY [facility] Stop: 07/22/22 08:59 Last Admin: 07/06/22 08:14 Dose: 40 mg Polyethylene Glycol (Polyethylene (Miralax) 17 Gm Pack) 17 gm PO DAILY PRN PRN Reason: Constipation Stop: 07/21/22 21:34 Last Admin: 07/06/22 11:28 Dose: 17 gm Prednisone (Prednisone 20 Mg Tab) 40 mg PO DAILY [facility] Stop: 07/30/22 09:14 Last Admin: 07/06/22 08:14 Dose: 40 mg Rivaroxaban (Rivaroxaban 15 Mg Tab) 15 mg PO QPM [facility] Stop: 08/04/22 20:59 Last Admin: 07/05/22 22:00 Dose: 15 mg Trimethoprim/Sulfamethoxazole (Sulfamethoxazole/Trimethoprim Ds 800/160mg Tab) 1 tab PO MoWeFr@0900 [facility] Stop: 07/08/22 08:59 Last Admin: 07/06/22 08:14 Dose: 1 tab Vitamin D (Cholecalciferol 1,000 Units 25 Mcg Tab) 2,000 units PO QDL [facility] Stop: 07/22/22 11:29 Last Admin: 07/06/22 11:28 Dose: 2,000 units (1) Anemia Anemia type: unspecified type Qualified Code(s): D64.9 - Anemia, unspecified
--- NOTE | 2022-07-06 13:23 | XRay Report ---
XR chest 1V portable HISTORY: Increase shortness of breath. COMPARISON: Chest 07/03/2022. FINDINGS: No pneumothorax. Left-sided pacemaker/defibrillator is again noted. The heart remains borde rline enlarged. Near diffuse reticulonodular interstitial thickening and hazy bilateral airspace opac ities persist. There are trace bilateral pleural effusions, unchanged. IMPRESSION: No significant change in the reticulonodular interstitial thickening, hazy bilateral airspace opaciti es, and trace bilateral pleural effusions. ACT 112: Negative or not required by law. Electronically signed by: Reza Shanks M.D. 07/06/2022 1:22 PM
[2022-07-06] MEDS: ALBUT/IPRATROP 3MG/0.5MG NEB 3 ML VIAL NEB PRN (15:46)
[2022-07-06] MEDS ORDERED: FUROSEMIDE 40 MG/4 ML VIAL IV STA (17:27)
[2022-07-06] MEDS: ATORVASTATIN 40 MG TAB PO SCH (21:33)
[2022-07-06] MEDS: RIVAROXABAN 15 MG TAB PO SCH (21:33)
[2022-07-07] MEDS: ALBUT/IPRATROP 3MG/0.5MG NEB 3 ML VIAL NEB PRN (03:08)
[2022-07-07 06:05] LABS: Hematocrit (blood only) 30.2 % (40.1-51.0); Hemoglobin 9.3 g/dl (14.0-18.0); Mean Corpuscular Hemoglobin 31.7 pg (25.0-34.0); Mean Corpuscular Hgb Conc 30.8 g/dL (32.0-36.0); Mean Corpuscular Volume 103.1 fL (80.0-100.0); Mean Platelet Volume 10.7 fL (9.4-12.4); Nucleated RBC # (auto) 0.02 K/uL (0-0); Nucleated RBC % (auto) 0.2 %; Platelet Count 356 K/uL (130-400); RDW Coefficient of Variation 23.5 % (11.5-14.5); RDW Standard Deviation 85.5 fL (36.4-46.3); Red Blood Count 2.93 M/uL (4.63-6.08); White Blood Count 13.16 K/ul (4.8-10.8)
[2022-07-07 06:27] LABS: BUN Creatinine Ratio 38.1 (10-20); Blood Urea Nitrogen 61 mg/dl (6-23); Calcium 9.2 mg/dl (8.5-10.1); Carbon Dioxide > 45 mmol/L (21-32); Chloride 92 mmol/L (98-107); Creatinine Clr Calc Pharmacy 50.8 ml/min; Est GFR (African American) 48.8 ml/min; Est GFR (Non-African American) 42.1 ml/min; Glucose 121 mg/dl (70-99(Fasting)); Magnesium 2.7 mg/dl (1.7-2.4); Potassium 4.8 mmol/L (3.5-5.1); Sodium 141 mmol/L (136-145)
[2022-07-07 07:41] LABS: Base Excess ABG 24.9 mEq/L (-9-1.8); HCO3 ABG 54 mmol/L (19-24); Oxygen Saturation ABG 93.4 % (90-95); PCO2 ABG 78 mmHg (35-46); PO2 ABG 63 mmHg (80-95); pH ABG 7.45 (7.35-7.45)
[2022-07-07] MEDS: METOPROLOL SUCC 50MG EXT REL TAB PO SCH (08:28)
[2022-07-07] MEDS: CETIRIZINE HCL 10 MG TABLET PO SCH (08:29)
[2022-07-07] MEDS: CYANOCOBALAMIN (B-12) 100 MCG TABLET PO SCH (08:30)
[2022-07-07] MEDS: predniSONE 20 MG TAB PO SCH (08:30)
[2022-07-07] MEDS: CHOLECALCIFEROL 1,000 UNITS 25 MCG TAB PO SCH (08:31)
[2022-07-07] MEDS: PANTOprazole 40 MG TAB PO SCH (08:31)
[2022-07-07] MEDS: allopurinoL 100 MG TAB PO SCH (08:31)
[2022-07-07] MEDS: FOLIC ACID 1 MG TAB PO SCH (08:32)
[2022-07-07] MEDS ORDERED: FUROSEMIDE 40 MG/4 ML VIAL IV SCH (09:00)
[2022-07-07 09:26] LABS: Allen Test Pos (Pos)
--- NOTE | 2022-07-07 09:48 | Hospitalist Progress Note ---
Date of Service July 07, 2022 Assessment & Plan (1) Acute on chronic respiratory failure with hypoxia: Plan: Initially hypoxic 2/2 acute heart failure with reduced ejection fraction. He then became hypercapnic and required BIPAP in the ICU. Yesterday with tachy pnea, increased fluid on repeat CXR and no evidence of hypercapnia on repeat ABG. Likely worsening fluid overload after lasix was held in setting of YELENA. Restarted this with improvement clinically today. Start working on getting him out of bed today as a goal. Will give one more dose of Lasix this am IV then transition him back to his home PO dosing. (2) Acute decompensated heart failure: Plan: Plan as above. (3) Acute on chronic renal failure: Plan: Creatinine is stable on am labs today. Will monitor closely with Lasix back on board now. (4) ILD (interstitial lung disease): Plan: Prednisone taper with bactrim prophylaxis per pulmonology (5) Lung cancer: Plan: h/o lung cancer with metastatic disease. Per oncology (6) Paroxysmal atrial fibrillation: Plan: persistent afib rhythm on telemetry. Rate is controlled with metoprolol. Anticoagulated with Xarelto. (7) Anemia: Plan: chronic, multifactorial. Cont to monitor. (8) DVT prophylaxis: Plan: Xarelto Full Code Dispo-cont PCU monitoring. Leah Wong DO [facility] Hospitalist Admission and Anticipated Discharge Date Admission Date: June 21, 2022 Subjective 71 yo M with acute respiratory failure Lasix overnight helped with his tachypnea (-1.2L out overnight) Standing weights have not been tracked for several days He denies chest pain and no SOB Tolerating PO No other issues but didn't get much sleep overnight We discussed the importance for him to get out of bed today Review of Systems Review of Systems: All systems were reviewed and negative except indicated above Physical Exam Physical Exam: CONSTITUTIONAL: WNWD, vitals as above, generally NAD EYES: normal conjunctivae, no scleral icterus ENT: external ear and nose normal, MMM NECK: trachea midline RESPIRATORY: clear to auscultation bilaterally, no crackles, rales or wheezes, normal respiratory effort CARDIOVASCULAR: regular rate and rhythm, S1 and 2 heard without murmurs, gallops or rubs, no JVD, no peripheral edema CHEST: inspection of chest was normal GASTROINTESTINAL: soft, nontender, ND MUSCULOSKELETAL: strength 5/5 throughout, head is normocephalic and atraumatic, SKIN: warm and dry, NEUROLOGIC: CN 2-12 grossly intact, no sensory deficit, normal cognition, normal speech, no tremor PSYCHIATRIC: alert cooperative and oriented to person, place and time. Euthymic mood, makes good eye contact, language grossly intact, recent and remote memory grossly intact. Results & Data Results & Data ([facility]) Vital Signs (Past 12 Hours) Vital Signs Temp Pulse Pulse Pulse Resp BP BP 07/07/22 08:00 36.5 C 71 20 148/66 H 07/07/22 08:00 65 07/07/22 08:00 07/07/22 04:00 36.4 C L 83 24 132/71 07/07/22 03:08 77 20 07/06/22 22:20 68 07/07/22 00:05 36.5 C 64 24 124/80 Pulse Ox O2 Del Method O2 Flow Rate 07/07/22 08:00 97 07/07/22 08:00 07/07/22 08:00 Oxymask 3 07/07/22 04:00 93 Oxymask 3.0 07/07/22 03:08 98 Oxymask 3 07/06/22 22:20 07/07/22 00:05 100 Oxymask 5.0 Laboratory Results Short CBC 07/07/22 Range/Units 05:51 WBC 13.16 H (4.8-10.8) K/ul Hgb 9.3 L (14.0-18.0) g/dl Hct 30.2 L (40.1-51.0) % Plt Count 356 (130-400) K/uL BMP 07/07/22 05:51 Sodium 141 Potassium 4.8 Chloride 92 L Carbon Dioxide > 45 H* BUN 61 H Creatinine 1.60 H Glucose 121 H Calcium 9.2 Medications Administered Current Inpatient Medications Acetaminophen (Acetaminophen 325 Mg Tab) 650 mg PO Q4H PRN PRN Reason: Pain or Fever Stop: 07/21/22 21:34 Last Admin: 06/21/22 22:00 Dose: 650 mg Albuterol (Albut/Ipratrop 3mg/0.5mg Neb 3 Ml Vial) 3 ml NEB Q6R PRN; Protocol PRN Reason: SOB/wheezin Stop: 07/30/22 12:59 Last Admin: 07/07/22 03:08 Dose: 3 ml Allopurinol (Allopurinol 100 Mg Tab) 100 mg PO QAM [facility] Stop: 07/22/22 08:59 Last Admin: 07/07/22 08:31 Dose: 100 mg Atorvastatin Calcium (Atorvastatin 40 Mg Tab) 40 mg PO HS [facility] Stop: 07/21/22 20:59 Last Admin: 07/06/22 21:33 Dose: 40 mg Benzonatate (Benzonatate 100 Mg Capsule) 200 mg PO TID PRN PRN Reason: Cough Stop: 07/21/22 20:25 Cetirizine HCl (Cetirizine Hcl 10 Mg Tablet) 5 mg PO QAM [facility] Stop: 07/22/22 08:59 Last Admin: 07/07/22 08:29 Dose: 5 mg Cyanocobalamin (Cyanocobalamin (B-12) 100 Mcg Tablet) 100 mcg PO DAILY [facility] Stop: 07/22/22 08:59 Last Admin: 07/07/22 08:30 Dose: 100 mcg Folic Acid (Folic Acid 1 Mg Tab) 1 mg PO QDL [facility] Stop: 07/22/22 11:29 Last Admin: 07/07/22 08:32 Dose: 1 mg Furosemide (Furosemide 40 Mg/4 Ml Vial) 40 mg IV DAILY [facility] Stop: 08/06/22 08:59 Last Admin: 07/07/22 08:32 Dose: 40 mg Magnesium Oxide (Magnesium Oxide 400 Mg Tab) 400 mg PO BID@1100,2300 [facility] Stop: 07/26/22 10:59 Last Admin: 07/06/22 21:33 Dose: 400 mg Metoprolol Succinate (Metoprolol Succ 50mg Ext Rel Tab) 50 mg PO DAILY [facility] Stop: 08/01/22 08:59 Last Admin: 07/07/22 08:28 Dose: 50 mg Ondansetron HCl (Ondansetron Inj 2 Mg/Ml 2 Ml Vial) 4 mg IV Q6H PRN PRN Reason: Nausea Stop: 07/21/22 21:34 Pantoprazole Sodium (Pantoprazole 40 Mg Tab) 40 mg PO DAILY [facility] Stop: 07/22/22 08:59 Last Admin: 07/07/22 08:31 Dose: 40 mg Polyethylene Glycol (Polyethylene (Miralax) 17 Gm Pack) 17 gm PO DAILY PRN PRN Reason: Constipation Stop: 07/21/22 21:34 Last Admin: 07/06/22 11:28 Dose: 17 gm Prednisone (Prednisone 20 Mg Tab) 40 mg PO DAILY [facility] Stop: 07/30/22 09:14 Last Admin: 07/07/22 08:30 Dose: 40 mg Rivaroxaban (Rivaroxaban 15 Mg Tab) 15 mg PO QPM [facility] Stop: 08/04/22 20:59 Last Admin: 07/06/22 21:33 Dose: 15 mg Trimethoprim/Sulfamethoxazole (Sulfamethoxazole/Trimethoprim Ds 800/160mg Tab) 1 tab PO MoWeFr@0900 [facility] Stop: 07/08/22 08:59 Last Admin: 07/06/22 08:14 Dose: 1 tab Vitamin D (Cholecalciferol 1,000 Units 25 Mcg Tab) 2,000 units PO QDL [facility] Stop: 07/22/22 11:29 Last Admin: 07/07/22 08:31 Dose: 2,000 units (1) Anemia Anemia type: unspecified type Qualified Code(s): D64.9 - Anemia, unspecified
[2022-07-07] MEDS: MAGNESIUM OXIDE 400 MG TAB PO SCH ×2 (10:37→23:04)
--- NOTE | 2022-07-07 11:00 | Nephrology Progress Note ---
Date of Service July 07, 2022 Assessment & Plan Admission and Anticipated Discharge Date Admission Date: June 21, 2022 Subjective Assessment & Plan (1) Acute on chronic renal failure: Plan: baseline creatinine mid ones; creatinine at baseline on admission 06/21. renal function was at baseline until 06/30 when it uptrended to peak at 2.2 - this is about the time that the diuretics stopped(getting better again 2.08 today ) urine sediment is inflamed w/ new microhematuria > AC was just recently stopped for this pt pt with mild electrolyte aberrations> mild hyperkalemia, mild hyponatremia, mild hyperphosphatemia, marked elevation in bicarb. no IV contrast; no extremes of blood pressure or pulse rate DDX is broad here>need to rule out obstruction; ATN is possible / even likeliest in the setting of acute downturn 48 hrs back clinically; pulmonary renal syndromes and other glomerular diseases on differential but no indication currently for renal bx, Renal USS Shows no obstruction withchronic outflow obstruction -renal functions improved and pretty much back to baseline--Did not go up with lasix -f/u pending serologies--low Likelihood though Chronic elevated Bicarb--need this as metabolic compensation for severe Hypercarbia he has. even with such high Bicarb his ABG shows normal pH Continue lasix daily Subjective Patient seen and examined at bedside.Was SOB yesterday and had lasix and ABG. On O2 face mask now. unable to stay on BiPAP for prolonged period of time. Review of Systems Review of Systems: Sob better No c/o cough or hemoptysis. Physical Exam---Appears Sick and frail. Mod resp distress. chest --b/l wheezing and some crackles. CVS--RRR Ext--no edema. Abd--soft non tender Results & Data ([facility]) Vital Signs (Past 12 Hours) Vital Signs Temp Pulse Pulse Pulse Resp BP BP 07/07/22 08:00 36.5 C 71 20 148/66 H 07/07/22 08:00 65 07/07/22 08:00 07/07/22 04:00 36.4 C L 83 24 132/71 07/07/22 03:08 77 20 07/07/22 00:05 36.5 C 64 24 124/80 Pulse Ox O2 Del Method O2 Flow Rate 07/07/22 08:00 97 07/07/22 08:00 07/07/22 08:00 Oxymask 3 07/07/22 04:00 93 Oxymask 3.0 07/07/22 03:08 98 Oxymask 3 07/07/22 00:05 100 Oxymask 5.0
[2022-07-07] MEDS: ATORVASTATIN 40 MG TAB PO SCH (20:18)
[2022-07-07] MEDS: RIVAROXABAN 15 MG TAB PO SCH (20:18)
[2022-07-08 06:08] LABS: Hemoglobin 9.7 g/dl (14.0-18.0); Mean Corpuscular Hemoglobin 31.9 pg (25.0-34.0); Mean Corpuscular Hgb Conc 30.3 g/dL (32.0-36.0); Mean Corpuscular Volume 105.3 fL (80.0-100.0); Mean Platelet Volume 10.8 fL (9.4-12.4); Nucleated RBC # (auto) 0.03 K/uL (0-0); Nucleated RBC % (auto) 0.2 %; Platelet Count 330 K/uL (130-400); RDW Coefficient of Variation 22.9 % (11.5-14.5); RDW Standard Deviation 86.8 fL (36.4-46.3); Red Blood Count 3.04 M/uL (4.63-6.08)
[2022-07-08 07:00] LABS: BUN Creatinine Ratio 35.8 (10-20); Blood Urea Nitrogen 59 mg/dl (6-23); Calcium 9.4 mg/dl (8.5-10.1); Carbon Dioxide > 45 mmol/L (21-32); Chloride 90 mmol/L (98-107); Creatinine Clr Calc Pharmacy 49.2 ml/min; Est GFR (Non-African American) 40.6 ml/min; Glucose 103 mg/dl (70-99(Fasting)); Magnesium 2.6 mg/dl (1.7-2.4); Phosphorus 4.1 mg/dl (2.5-4.9); Potassium 5.2 mmol/L (3.5-5.1); Sodium 138 mmol/L (136-145)
[2022-07-08] MEDS ORDERED: FUROSEMIDE 40 MG TAB PO SCH (09:00)
[2022-07-08] MEDS: METOPROLOL SUCC 50MG EXT REL TAB PO SCH (09:53)
[2022-07-08] MEDS: CYANOCOBALAMIN (B-12) 100 MCG TABLET PO SCH (09:53)
[2022-07-08] MEDS: predniSONE 20 MG TAB PO SCH (09:54)
[2022-07-08] MEDS: CETIRIZINE HCL 10 MG TABLET PO SCH (09:54)
[2022-07-08] MEDS: allopurinoL 100 MG TAB PO SCH (09:54)
[2022-07-08] MEDS: PANTOprazole 40 MG TAB PO SCH (09:54)
[2022-07-08] MEDS: MAGNESIUM OXIDE 400 MG TAB PO SCH ×2 (11:34→20:05)
[2022-07-08] MEDS: FOLIC ACID 1 MG TAB PO SCH (11:34)
[2022-07-08] MEDS: CHOLECALCIFEROL 1,000 UNITS 25 MCG TAB PO SCH (11:34)
[2022-07-08] MEDS ORDERED: SULFAMETHOXAZOLE/TRIMETHOPRIM DS 800/160MG TAB PO SCH (13:00)
--- NOTE | 2022-07-08 14:38 | Hospitalist Progress Note ---
Date of Service July 08, 2022 Assessment & Plan (1) Acute on chronic respiratory failure with hypoxia: Plan: Initially hypoxic 2/2 acute heart failure with reduced ejection fraction. He then became hypercapnic and required BIPAP in the ICU. Tachypnea re-emerged on 07/06, increased fluid on repeat CXR and no evidence of hypercapnia on repeat ABG. Likely worsening fluid overload after lasix was held in setting of YELENA. Restarted Lasix with improvement, however, now with desaturation episodes with minimal movement. Lasix 40mg PO given this am, Will give 40mg IV this afternoon and convert to Lasix 40mg IV daily. VERY IMPORTANT TO GET STRICT I/Os AND DAILY STANDING WEIGHTS so we can monitor response to diuretic therapy. It will be important to continue moving him and monitoring what happens with his saturations. Will only be able to transfer to rehab once he is stable without desaturations. (2) Acute decompensated heart failure: Plan: Plan as above. (3) Acute on chronic renal failure: Plan: Creatinine is stable on am labs today. Will monitor closely with Lasix back on board now. (4) ILD (interstitial lung disease): Plan: Prednisone taper with bactrim prophylaxis per pulmonology (5) Lung cancer: Plan: h/o lung cancer with metastatic disease. Per oncology (6) Paroxysmal atrial fibrillation: Plan: persistent afib rhythm on telemetry. Rate is controlled with metoprolol. Anticoagulated with Xarelto. Some dark red hemoptysis today that is likely him clearing what was seen on earlier bronch this admission. (7) Anemia: Plan: chronic, multifactorial. Cont to monitor. (8) DVT prophylaxis: Plan: Xarelto Full Code Dispo-cont PCU monitoring. Discussed the plan with primary RN, and sister who was at bedside. they agree with the current plan. Also updated case management. [facility] and [facility]ated Discharge Date Admission Date: June 21, 2022 Subjective 71 yo M with acute respiratory failure Desaturation with minimal movement noted overnight and this morning while getting cleaned after a BM and with PT/OT Three unmeasured voids recorded No daily weight today. He denies chest pain and no SOB Tolerating PO Review of Systems Review of Systems: All systems were reviewed and negative except indicated above Physical Exam Physical Exam: CONSTITUTIONAL: WNWD, vitals as above, generally NAD EYES: normal conjunctivae, no scleral icterus ENT: external ear and nose normal, MMM NECK: trachea midline RESPIRATORY: clear to auscultation bilaterally, no crackles, rales or wheezes, normal respiratory effort CARDIOVASCULAR: regular rate and rhythm, S1 and 2 heard without murmurs, gallops or rubs, no JVD, no peripheral edema CHEST: inspection of chest was normal GASTROINTESTINAL: soft, nontender, ND MUSCULOSKELETAL: strength 5/5 throughout, head is normocephalic and atraumatic, SKIN: warm and dry, NEUROLOGIC: CN 2-12 grossly intact, no sensory deficit, normal cognition, normal speech, no tremor PSYCHIATRIC: alert cooperative and oriented to person, place and time. Euthymic mood, makes good eye contact, language grossly intact, recent and remote memory grossly intact. Results & Data Results & Data ([facility]) Vital Signs (Past 12 Hours) Vital Signs Temp Pulse Pulse Resp BP Pulse Ox O2 Del Method 07/08/22 12:00 36.5 C 73 18 114/60 07/08/22 08:00 Oxymask 07/08/22 08:00 36.7 C 88 16 109/63 95 07/08/22 03:00 36.6 C 81 20 116/78 100 Oxymask O2 Flow Rate 07/08/22 12:00 07/08/22 08:00 3 07/08/22 08:00 07/08/22 03:00 5.0 Laboratory Results Short CBC 07/08/22 Range/Units 05:52 WBC 13.20 H (4.8-10.8) K/ul Hgb 9.7 L (14.0-18.0) g/dl Hct 32.0 L (40.1-51.0) % Plt Count 330 (130-400) K/uL BMP 07/08/22 05:52 Sodium 138 Potassium 5.2 H Chloride 90 L Carbon Dioxide > 45 H* BUN 59 H Creatinine 1.65 H Glucose 103 H Calcium 9.4 Medications Administered Current Inpatient Medications Acetaminophen (Acetaminophen 325 Mg Tab) 650 mg PO Q4H PRN PRN Reason: Pain or Fever Stop: 07/21/22 21:34 Last Admin: 06/21/22 22:00 Dose: 650 mg Albuterol (Albut/Ipratrop 3mg/0.5mg Neb 3 Ml Vial) 3 ml NEB Q6R PRN; Protocol PRN Reason: SOB/wheezin Stop: 07/30/22 12:59 Last Admin: 07/07/22 03:08 Dose: 3 ml Allopurinol (Allopurinol 100 Mg Tab) 100 mg PO QAM [facility] Stop: 07/22/22 08:59 Last Admin: 07/08/22 09:54 Dose: 100 mg Atorvastatin Calcium (Atorvastatin 40 Mg Tab) 40 mg PO HS [facility] Stop: 07/21/22 20:59 Last Admin: 07/07/22 20:18 Dose: 40 mg Benzonatate (Benzonatate 100 Mg Capsule) 200 mg PO TID PRN PRN Reason: Cough Stop: 07/21/22 20:25 Cetirizine HCl (Cetirizine Hcl 10 Mg Tablet) 5 mg PO QAM [facility] Stop: 07/22/22 08:59 Last Admin: 07/08/22 09:54 Dose: 5 mg Cyanocobalamin (Cyanocobalamin (B-12) 100 Mcg Tablet) 100 mcg PO DAILY [facility] Stop: 07/22/22 08:59 Last Admin: 07/08/22 09:53 Dose: 100 mcg Folic Acid (Folic Acid 1 Mg Tab) 1 mg PO QDL [facility] Stop: 07/22/22 11:29 Last Admin: 07/08/22 11:34 Dose: 1 mg Furosemide (Furosemide 40 Mg Tab) 40 mg PO QAM [facility] Stop: 08/07/22 08:59 Last Admin: 07/08/22 09:54 Dose: 40 mg Furosemide (Furosemide 40 Mg/4 Ml Vial) 40 mg IV ONE ONE Stop: 07/08/22 17:01 Furosemide (Furosemide 40 Mg/4 Ml Vial) 40 mg IV DAILY [facility] Stop: 08/08/22 08:59 Magnesium Oxide (Magnesium Oxide 400 Mg Tab) 400 mg PO BID@1100,2300 [facility] Stop: 07/26/22 10:59 Last Admin: 07/08/22 11:34 Dose: 400 mg Metoprolol Succinate (Metoprolol Succ 50mg Ext Rel Tab) 50 mg PO DAILY [facility] Stop: 08/01/22 08:59 Last Admin: 07/08/22 09:53 Dose: 50 mg Ondansetron HCl (Ondansetron Inj 2 Mg/Ml 2 Ml Vial) 4 mg IV Q6H PRN PRN Reason: Nausea Stop: 07/21/22 21:34 Pantoprazole Sodium (Pantoprazole 40 Mg Tab) 40 mg PO DAILY [facility] Stop: 07/22/22 08:59 Last Admin: 07/08/22 09:54 Dose: 40 mg Polyethylene Glycol (Polyethylene (Miralax) 17 Gm Pack) 17 gm PO DAILY PRN PRN Reason: Constipation Stop: 07/21/22 21:34 Last Admin: 07/06/22 11:28 Dose: 17 gm Prednisone (Prednisone 20 Mg Tab) 40 mg PO DAILY [facility] Stop: 07/30/22 09:14 Last Admin: 07/08/22 09:54 Dose: 40 mg Rivaroxaban (Rivaroxaban 15 Mg Tab) 15 mg PO QPM [facility] Stop: 08/04/22 20:59 Last Admin: 07/07/22 20:18 Dose: 15 mg Trimethoprim/Sulfamethoxazole (Sulfamethoxazole/Trimethoprim Ds 800/160mg Tab) 1 tab PO MoWeFr@0900 [facility] Stop: 08/07/22 12:59 Last Admin: 07/08/22 12:50 Dose: 1 tab Vitamin D (Cholecalciferol 1,000 Units 25 Mcg Tab) 2,000 units PO QDL [facility] Stop: 07/22/22 11:29 Last Admin: 07/08/22 11:34 Dose: 2,000 units (1) Anemia Anemia type: unspecified type Qualified Code(s): D64.9 - Anemia, unspecified
[2022-07-08] MEDS ORDERED: FUROSEMIDE 40 MG/4 ML VIAL IV ONE (17:00)
[2022-07-08] MEDS: RIVAROXABAN 15 MG TAB PO SCH (20:04)
[2022-07-08] MEDS: ATORVASTATIN 40 MG TAB PO SCH (20:05)
[2022-07-09 06:34] LABS: Hematocrit (blood only) 31.6 % (40.1-51.0); Hemoglobin 9.6 g/dl (14.0-18.0); Mean Corpuscular Hemoglobin 31.9 pg (25.0-34.0); Mean Corpuscular Hgb Conc 30.4 g/dL (32.0-36.0); Mean Platelet Volume 11.9 fL (9.4-12.4); Platelet Count 311 K/uL (130-400); RDW Coefficient of Variation 22.8 % (11.5-14.5); RDW Standard Deviation 85.9 fL (36.4-46.3); Red Blood Count 3.01 M/uL (4.63-6.08)
[2022-07-09 07:20] LABS: BUN Creatinine Ratio 36.7 (10-20); Blood Urea Nitrogen 62 mg/dl (6-23); Calcium 9.5 mg/dl (8.5-10.1); Carbon Dioxide > 45 mmol/L (21-32); Chloride 90 mmol/L (98-107); Creatinine Clr Calc Pharmacy 47.9 ml/min; Est GFR (African American) 45.7 ml/min; Est GFR (Non-African American) 39.4 ml/min; Glucose 105 mg/dl (70-99(Fasting)); Magnesium 2.4 mg/dl (1.7-2.4); Phosphorus 4.3 mg/dl (2.5-4.9); Potassium 5.6 mmol/L (3.5-5.1); Sodium 138 mmol/L (136-145)
[2022-07-09] MEDS: CETIRIZINE HCL 10 MG TABLET PO SCH (08:38)
[2022-07-09] MEDS: allopurinoL 100 MG TAB PO SCH (08:38)
[2022-07-09] MEDS: FUROSEMIDE 40 MG/4 ML VIAL IV SCH ×2 (08:39→08:49)
[2022-07-09] MEDS: CYANOCOBALAMIN (B-12) 100 MCG TABLET PO SCH (08:39)
[2022-07-09] MEDS: PANTOprazole 40 MG TAB PO SCH (08:40)
[2022-07-09] MEDS: predniSONE 20 MG TAB PO SCH (08:40)
[2022-07-09] MEDS: METOPROLOL SUCC 50MG EXT REL TAB PO SCH (08:40)
[2022-07-09] MEDS ORDERED: STAT IV STA (08:49)
[2022-07-09] MEDS ORDERED: CALCIUM GLUCONATE 10% 1,000 MG in DEXTROSE 5% 50 ML IV ONE (09:00)
[2022-07-09] MEDS: MAGNESIUM OXIDE 400 MG TAB PO SCH ×2 (10:52→20:14)
[2022-07-09] MEDS: FOLIC ACID 1 MG TAB PO SCH (10:52)
[2022-07-09] MEDS: CHOLECALCIFEROL 1,000 UNITS 25 MCG TAB PO SCH (10:52)
--- NOTE | 2022-07-09 14:02 | Hospitalist Progress Note ---
Date of Service July 09, 2022 Assessment & Plan (1) Acute on chronic respiratory failure with hypoxia: Plan: Initially hypoxic 2/2 acute heart failure with reduced ejection fraction. He then became hypercapnic and required BIPAP in the ICU. Tachypnea re-emerged on 07/06, increased fluid on repeat CXR and no evidence of hypercapnia on repeat ABG. Likely worsening fluid overload after lasix was held in setting of YELENA. Restarted Lasix with improvement, however, now with desaturation episodes with minimal movement. Lasix 40mg oral was switched to IV and he continues on this daily. Patient has incontinence so it is difficult to accurately assess I/Os. Will consider Burr. Cautiously increase Lasix frequency given recent issue with YELENA after diuretic. Will ask cardiology to weigh in again. (2) Acute decompensated heart failure: Plan: Plan as above. (3) Acute on chronic renal failure: Plan: Creatinine is stable on am labs today. Will monitor closely with Lasix back on board now. (4) ILD (interstitial lung disease): Plan: Prednisone taper with bactrim prophylaxis per pulmonology. Progressing hyperkalemia (5) Lung cancer: Plan: h/o lung cancer with metastatic disease. Per oncology (6) Paroxysmal atrial fibrillation: Plan: persistent afib rhythm on telemetry. Rate is controlled with metoprolol. A nticoagulated with Xarelto. Dark red hemoptysis yesterday has resolved and was likely the result of natural clearance of secretions and old blood seen on recent bronchoscopy. (7) Anemia: Plan: chronic, multifactorial. Cont to monitor. (8) DVT prophylaxis: Plan: Xarelto Full Code Dispo-cont PCU monitoring. Leah Wong DO [facility] Hospitalist Admission and Anticipated Discharge Date Admission Date: June 21, 2022 Subjective 71 yo M with acute respiratory failure Continues to endorse no issues with breathing Denies chest pain Got some sleep last night Max assist and has persistent desaturation issues when moves to the edge of bed Review of Systems Review of Systems: All systems were reviewed and negative except indicated above Physical Exam Physical Exam: CONSTITUTIONAL: WNWD, vitals as above, generally NAD EYES: normal conjunctivae, no scleral icterus ENT: external ear and nose normal, MMM NECK: trachea midline RESPIRATORY: clear to auscultation bilaterally, no crackles, rales or wheezes, normal respiratory effort CARDIOVASCULAR: regular rate and rhythm, S1 and 2 heard without murmurs, gallops or rubs, no JVD, no peripheral edema CHEST: inspection of chest was normal GASTROINTESTINAL: soft, nontender, ND MUSCULOSKELETAL: strength 5/5 throughout, head is normocephalic and atraumatic, SKIN: warm and dry, NEUROLOGIC: CN 2-12 grossly intact, no sensory deficit, normal cognition, normal speech, no tremor PSYCHIATRIC: alert cooperative and oriented to person, place and time. Euthymic mood, makes good eye contact, language grossly intact, recent and remote memory grossly intact. Results & Data Results & Data ([facility]) Vital Signs (Past 12 Hours) Vital Signs Temp Pulse Pulse Resp BP Pulse Ox O2 Del Method 07/09/22 11:27 36.5 C 63 22 106/65 95 Nasal Cannula 07/09/22 10:31 33 H 90 Nasal Cannula 07/09/22 10:41 37 H 86 L Nasal Cannula 07/09/22 10:47 24 93 Nasal Cannula 07/09/22 07:00 70 07/09/22 07:30 Nasal Cannula 07/09/22 07:00 36.4 C L 73 21 106/72 93 Nasal Cannula 07/09/22 02:52 36.4 C L 61 24 113/74 100 Nasal Cannula O2 Flow Rate 07/09/22 11:27 3 07/09/22 10:31 3 07/09/22 10:41 3 07/09/22 10:47 3 07/09/22 07:00 07/09/22 07:30 3 07/09/22 07:00 3 07/09/22 02:52 3 Laboratory Results Short CBC 07/09/22 Range/Units 05:26 WBC 14.20 H (4.8-10.8) K/ul Hgb 9.6 L (14.0-18.0) g/dl Hct 31.6 L (40.1-51.0) % Plt Count 311 (130-400) K/uL BMP 07/09/22 05:26 Sodium 138 Potassium 5.6 H Chloride 90 L Carbon Dioxide > 45 H* BUN 62 H Creatinine 1.69 H Glucose 105 H Calcium 9.5 Medications Administered Current Inpatient Medications Acetaminophen (Acetaminophen 325 Mg Tab) 650 mg PO Q4H PRN PRN Reason: Pain or Fever Stop: 07/21/22 21:34 Last Admin: 06/21/22 22:00 Dose: 650 mg Albuterol (Albut/Ipratrop 3mg/0.5mg Neb 3 Ml Vial) 3 ml NEB Q6R PRN; Protocol PRN Reason: SOB/wheezin Stop: 07/30/22 12:59 Last Admin: 07/07/22 03:08 Dose: 3 ml Allopurinol (Allopurinol 100 Mg Tab) 100 mg PO QAM AMBER Stop: 07/22/22 08:59 Last Admin: 07/09/22 08:38 Dose: 100 mg Atorvastatin Calcium (Atorvastatin 40 Mg Tab) 40 mg PO HS AMBER Stop: 07/21/22 20:59 Last Admin: 07/08/22 20:05 Dose: 40 mg Benzonatate (Benzonatate 100 Mg Capsule) 200 mg PO TID PRN PRN Reason: Cough Stop: 07/21/22 20:25 Cetirizine HCl (Cetirizine Hcl 10 Mg Tablet) 5 mg PO QAM AMBER Stop: 07/22/22 08:59 Last Admin: 07/09/22 08:38 Dose: 5 mg Cyanocobalamin (Cyanocobalamin (B-12) 100 Mcg Tablet) 100 mcg PO DAILY AMBER Stop: 07/22/22 08:59 Last Admin: 07/09/22 08:39 Dose: 100 mcg Folic Acid (Folic Acid 1 Mg Tab) 1 mg PO QDL AMBER Stop: 07/22/22 11:29 Last Admin: 07/09/22 10:52 Dose: 1 mg Furosemide (Furosemide 40 Mg Tab) 40 mg PO QAM AMBER Stop: 08/07/22 08:59 Last Admin: 07/08/22 09:54 Dose: 40 mg Furosemide (Furosemide 40 Mg/4 Ml Vial) 40 mg IV DAILY [facility] Stop: 08/08/22 08:59 Last Admin: 07/09/22 08:49 Dose: 40 mg Magnesium Oxide (Magnesium Oxide 400 Mg Tab) 400 mg PO BID@1100,2300 [facility] Stop: 07/26/22 10:59 Last Admin: 07/09/22 10:52 Dose: 400 mg Metoprolol Succinate (Metoprolol Succ 50mg Ext Rel Tab) 50 mg PO DAILY [facility] Stop: 08/01/22 08:59 Last Admin: 07/09/22 08:40 Dose: 50 mg Ondansetron HCl (Ondansetron Inj 2 Mg/Ml 2 Ml Vial) 4 mg IV Q6H PRN PRN Reason: Nausea Stop: 07/21/22 21:34 Pantoprazole Sodium (Pantoprazole 40 Mg Tab) 40 mg PO DAILY [facility] Stop: 07/22/22 08:59 Last Admin: 07/09/22 08:40 Dose: 40 mg Polyethylene Glycol (Polyethylene (Miralax) 17 Gm Pack) 17 gm PO DAILY PRN PRN Reason: Constipation Stop: 07/21/22 21:34 Last Admin: 07/06/22 11:28 Dose: 17 gm Prednisone (Prednisone 20 Mg Tab) 40 mg PO DAILY [facility] Stop: 07/30/22 09:14 Last Admin: 07/09/22 08:40 Dose: 40 mg Rivaroxaban (Rivaroxaban 15 Mg Tab) 15 mg PO QPM [facility] Stop: 08/04/22 20:59 Last Admin: 07/08/22 20:04 Dose: 15 mg Trimethoprim/Sulfamethoxazole (Sulfamethoxazole/Trimethoprim Ds 800/160mg Tab) 1 tab PO MoWeFr@0900 [facility] Stop: 08/07/22 12:59 Last Admin: 07/08/22 12:50 Dose: 1 tab Vitamin D (Cholecalciferol 1,000 Units 25 Mcg Tab) 2,000 units PO QDL [facility] Stop: 07/22/22 11:29 Last Admin: 07/09/22 10:52 Dose: 2,000 units (1) Anemia Anemia type: unspecified type Qualified Code(s): D64.9 - Anemia, unspecified
[2022-07-09 16:34] LABS: BUN Creatinine Ratio 36.3 (10-20); Blood Urea Nitrogen 62 mg/dl (6-23); Calcium 9.7 mg/dl (8.5-10.1); Carbon Dioxide > 45 mmol/L (21-32); Chloride 87 mmol/L (98-107); Creatinine Clr Calc Pharmacy 47.4 ml/min; Est GFR (Non-African American) 38.9 ml/min; Glucose 174 mg/dl (70-99(Fasting)); Sodium 137 mmol/L (136-145)
[2022-07-09 16:44] LABS: Potassium 5.5 mmol/L (3.5-5.1)
[2022-07-09] MEDS ORDERED: SODIUM POLYSTYRENE SULFONATE 15G/60ML SUSP PO STA (16:45)
[2022-07-09] MEDS ORDERED: FUROSEMIDE INJ 20 MG/2 ML VIAL IV ONE (16:45)
[2022-07-09] MEDS: ATORVASTATIN 40 MG TAB PO SCH (20:13)
[2022-07-09] MEDS: RIVAROXABAN 15 MG TAB PO SCH (20:14)
--- NOTE | 2022-07-10 07:09 | XRay Report ---
XR chest 1V portable HISTORY: 71 years-old Male hypoxia acute hypoxia COMPARISON: Chest radiograph 07/06/2022 TECHNIQUE: Portable AP view of the chest FINDINGS: Cardiac silhouette is enlarged. Left subclavian pacer/AICD. Unchanged reticular nodular opacities wit h mild right hemidiaphragmatic elevation. No pneumothorax. Trace pleural effusions with mild intermix ed bilateral airspace opacities which have slightly improved. Degenerative changes of the shoulders a nd spine. IMPRESSION: Reticular-nodular opacities with ill-defined airspace densities appear stable to slightly improved from 07/06/2022. ACT 112: Negative or not required by law. The above report was generated using voice recognition software. It may contain grammatical, syntax o r spelling errors. Electronically signed by: Rogelio Sapp M.D. 07/10/2022 7:08 AM
[2022-07-10 07:10] LABS: BUN Creatinine Ratio 39.2 (10-20); Calcium 9.6 mg/dl (8.5-10.1); Creatinine Clr Calc Pharmacy 48.6 ml/min; Est GFR (African American) 51.5 ml/min; Est GFR (Non-African American) 44.5 ml/min; Magnesium 2.2 mg/dl (1.7-2.4); Potassium 4.9 mmol/L (3.5-5.1)
[2022-07-10 08:40] LABS: Basophils # (auto) 0.04 K/uL (0-0.2); Basophils % (auto) 0.3 %; Eosinophils # (auto) 0.07 K/uL (0-0.50); Eosinophils % (auto) 0.4 %; Hematocrit (blood only) 32.7 % (40.1-51.0); Hemoglobin 10.1 g/dl (14.0-18.0); Immature Granulocytes # (auto) 0.68 K/uL (0.00-0.02); Immature Granulocytes % (auto) 4.3 %; Lymphocytes # (auto) 0.72 K/uL (1.2-3.4); Lymphocytes % (auto) 4.6 %; Mean Corpuscular Hemoglobin 32.1 pg (25.0-34.0); Mean Corpuscular Hgb Conc 30.9 g/dL (32.0-36.0); Mean Corpuscular Volume 103.8 fL (80.0-100.0); Mean Platelet Volume 11.1 fL (9.4-12.4); Monocytes # (auto) 1.53 K/uL (0.24-0.82); Monocytes % (auto) 9.7 %; Neutrophils % (auto) 80.7 %; Nucleated RBC # (auto) 0.02 K/uL (0-0); Nucleated RBC % (auto) 0.1 %; Platelet Count 298 K/uL (130-400); RDW Coefficient of Variation 23.2 % (11.5-14.5); RDW Standard Deviation 85.8 fL (36.4-46.3); Red Blood Count 3.15 M/uL (4.63-6.08); White Blood Count 15.74 K/ul (4.8-10.8)
[2022-07-10 09:04] LABS: Anisocytosis Present; Polychromasia 1+
[2022-07-10] MEDS: CETIRIZINE HCL 10 MG TABLET PO SCH (09:13)
[2022-07-10] MEDS: METOPROLOL SUCC 50MG EXT REL TAB PO SCH (09:13)
[2022-07-10] MEDS: FUROSEMIDE 40 MG/4 ML VIAL IV SCH (09:13)
[2022-07-10] MEDS: allopurinoL 100 MG TAB PO SCH (09:15)
[2022-07-10] MEDS: CYANOCOBALAMIN (B-12) 100 MCG TABLET PO SCH (09:15)
[2022-07-10] MEDS: PANTOprazole 40 MG TAB PO SCH (09:15)
[2022-07-10] MEDS: predniSONE 20 MG TAB PO SCH (09:15)
[2022-07-10] MEDS: CHOLECALCIFEROL 1,000 UNITS 25 MCG TAB PO SCH (11:45)
[2022-07-10] MEDS: FOLIC ACID 1 MG TAB PO SCH (11:45)
[2022-07-10] MEDS: MAGNESIUM OXIDE 400 MG TAB PO SCH ×2 (11:45→19:59)
--- NOTE | 2022-07-10 12:52 | Cardiology Progress Note ---
Date of Service July 10, 2022 Assessment & Plan (1) Chronic systolic heart failure: (2) Chronic respiratory failure with hypoxia: (3) ILD (interstitial lung disease): Plan: -Patient has been in the hospital for 19 days. Hospital course reviewed. At 1 point, creatinine had peaked at 2.22, 1.71 yesterday, down to 1.53 today. At 1 point he had been on furosemide with dose as high as 60 mg twice daily, diuretics held for about a week due to acute renal insufficiency, and now he is back on furosemide 40 mg IV daily with home maintenance dose of 40 mg p.o. daily. Hyperkalemia noted with levels of 5.6 and 5.5 mmol.l on 07/09/2022, proved to 4.9 this morning having received furosemide and Kayexalate, Bactrim now on hold. -Recent and historical chest x-rays reviewed, with findings of underlying interstitial lung markings, making it difficult to distinguish between CHF and his underlying interstitial lung disease. -Patient with multifactorial respiratory insufficiency including underlying interstitial lung disease, squamous carcinoma of the lung, and chronic systolic heart failure due to presumed nonischemic cardiomyopathy, previous work-up with cardiac catheterization revealing moderate nonobstructive CAD. LVEF earlier this admission in the range of 35 to 40%, down from 40 to 45% on previous echo. Patient has referred to a persistent rate controlled atrial fibrillation this admission, and as previously noted by my colleagues, is felt to not be a good candidate for rhythm control strategy as it is felt that he will likely just left back in atrial fibrillation. His lung disease makes him a poor candidate for amiodarone. -Recommend continuing current dose of furosemide 40 mg IV daily, and transition back to 40 mg p.o. daily when feasible. With regards to atrial fibrillation, continue rate control with metoprolol succinate 50 mg daily, stroke prophylaxis with Xarelto. -Case discussed with Dr. Wong. Admission and Anticipated Discharge Date Admission Date: June 21, 2022 Subjective Patient seen in cardiology reassessment per the request of Dr. Wong with regards to ongoing respiratory insufficiency, desaturation with minimal activity, history of chronic systolic heart failure. Patient comfortable at the time of my assessment in room 243-1, most recent pulse oximetry 99% on 2 L nasal cannula, with desaturations noted without oxygen and with minimal activity. Burr catheter placed within the last 24 hours, and patient received 40 mg of IV furosemide yesterday and again today. Telemetry reveals rate controlled atrial fibrillation at 70 bpm. Physical Exam Constitutional: Chronically ill in appearance without acute distress Respiratory: Crackles bilaterally at the bases, indistinguishable between changes of interstitial lung disease or CHF Cardiovascular: Irregular rhythm, no murmurs, no edema Gastrointestinal (Abdomen): normal bowel sounds, soft, nontender, no hepatosplenomegaly Neurologic: PERRL, EOMI, accommodation nl, no face palsy, no dysarthria Genitourinary: Burr catheter in place draining clear yellow urine Results & Data ([facility]) Vital Signs (Past 12 Hours) Vital Signs Temp Pulse Pulse Resp BP BP Pulse Ox 07/10/22 10:55 36.5 C 70 25 H 117/79 99 07/10/22 07:01 36.5 C 69 23 106/65 95 07/10/22 03:00 36.5 C 81 18 117/75 94 O2 Del Method O2 Flow Rate 07/10/22 10:55 Nasal Cannula 2 07/10/22 07:01 Oxymask 2 07/10/22 03:00 Nasal Cannula 2 Laboratory Results CBC 07/10/22 Range/Units 08:25 WBC 15.74 H (4.8-10.8) K/ul RBC 3.15 L (4.63-6.08) M/uL Hgb 10.1 L (14.0-18.0) g/dl Hct 32.7 L (40.1-51.0) % Plt Count 298 (130-400) K/uL Neut # (Auto) 12.70 H (1.4-6.5) K/uL Lymph # (Auto) 0.72 L (1.2-3.4) K/uL Nelson # (Auto) 1.53 H (0.24-0.82) K/uL Eos # (Auto) 0.07 (0-0.50) K/uL Baso # (Auto) 0.04 (0-0.2) K/uL Comprehensive Metabolic Panel 07/09/22 07/10/22 Range/Units 15:28 05:34 Sodium 137 138 (136-145) mmol/L Potassium 5.5 H 4.9 (3.5-5.1) mmol/L Chloride 87 L 88 L (98-107) mmol/L Carbon Dioxide > 45 H* 45 H* (21-32) mmol/L BUN 62 H 60 H (6-23) mg/dl Creatinine 1.71 H 1.53 H (0.6-1.4) mg/dl Glucose 174 H 113 H (70-99(Fasting)) mg/dl Calcium 9.7 9.6 (8.5-10.1) mg/dl Intake and Output 07/09/22 07/10/22 07/10/22 22:59 06:59 14:59 Output Total 800 / 1300 300 / 1300 Balance -800 / -690 -300 / -690 Output: Urine 650 / 1150 300 / 1150 Urine Amount (Catheter) 150 / 150 External 150 / 150 Other: Weight 90 kg Weight Measurement Method Standing Scale
--- NOTE | 2022-07-10 14:01 | Hospitalist Progress Note ---
Date of Service July 10, 2022 Assessment & Plan (1) Acute on chronic respiratory failure with hypoxia: Plan: Initially hypoxic 2/2 acute heart failure with reduced ejection fraction. He then became hypercapnic and required BIPAP in the ICU. Tachypnea re-emerged on 07/06, increased fluid on repeat CXR and no evidence of hypercapnia on repeat ABG. Likely worsening fluid overload after lasix was held in setting of YELENA. Additional risk factors for fluid overload include ongoing atrial fibrillation with low ejection fraction, new prednisone therapy that may cause additional fluid retention and low activity level causing inability to mobilize fluid naturally. Restarted Lasix with improvement, however, he continues to have desaturation episodes with minimal movement. He continues on Lasix 40mg IV daily. 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 He developed progressive hypoxic respiratory failure with diffuse pulmonary infiltrates and bronchoscopy was performed which revealed BAL findings consistent with alveolar hemorrhage. Cytology was negative. He was placed on steroids and Bactrim for infectious prophylaxis. Regarding work-up for his pulmonary hemorrhage, MIRANDA and ANCA were both negative. Etiology was felt to be bleeding related to chemotherapy and ongoing anticoagulation. He has been on Xarelto for over a week and doing well with minimal hemoptysis. Pneumocystis [place] pneumonia PCR was negative and Fungitell was negative. Notably he has completed a course of antibiotics for possible pneumonia. He has not developed any new fevers or worsening cough. With this new episode of acute shortness of breath and increased work of breathing that came on suddenly, will repeat CXR and ABG now and given BIPAP for support. May consider Ativan 0.25 IV if he remains anxious. Currently on 12/03 at 40% FiO2. Appears more calm on the BIPAP mask. Will await the blood gas results and contact ICU as a heads up. He is a confirmed full code per family and patient who are all in the room together. (2) Acute decompensated heart failure: Plan: Plan as above. (3) Acute on chronic renal failure: Plan: Creatinine is stable/improved on am labs today. Cont daily BMP. (4) ILD (interstitial lung disease): Plan: Prednisone taper with bactrim prophylaxis per pulmonology. With ongoing hyperkalemia, this was held. Per pulmonology teacher education director this is not an issue. Cont to hold in setting of renal compromise. As this improves we may have less of an issue using Bactrim. Alternative prophylaxis includes dapsone. G6Pd def request is a reference lab. Will send tomorrow in case this is favored as an alternative. (5) Lung cancer: Plan: h/o lung cancer with metastatic disease. Per oncology (6) Paroxysmal atrial fibrillation: Plan: persistent afib rhythm on telemetry. Rate is controlled with metoprolol. Anticoagulated with Xarelto. Dark red hemoptysis yesterday has resolved and was likely the result of natural clearance of secretions and old blood seen on recent bronchoscopy. (7) Anemia: Plan: chronic, multifactorial. Notably H/H is improved with 10.1/32.7 up from 9.6/31.6 and no further hemoptysis. He is not thought to be actively bleeding at this time. Cont to monitor. (8) DVT prophylaxis: Plan: Xarelto Full Code Dispo-cont PCU monitoring. Thirty minutes of critical care was given including assessment of the patient, discussion of the case with family, patient, RN and other specialists, ordering lab and radiology studies and interpretation of results and monitoring the effects of medications/treatments ordered. [facility] and Anticipated Discharge Date Admission Date: June 21, 2022 Subjective 71 yo M with acute respiratory failure He was reported by primary RN as desaturating to the 60% range this morning with attempt to stand him at the bedside and grab a standing weight. He continues to desaturate with minimal movement. He is oxygenating 99% on 2LPM via nasal canula. I stopped by the room while he was eating lunch and he was comfortable, doing well and not winded. Two hours later I was called to the bedside by RN for worsening respiratory distress He is slightly anxious and sister are at the bedside. Review of Systems Review of Systems: All systems were reviewed and negative except indicated above Physical Exam Physical Exam: CONSTITUTIONAL: WNWD, vitals as above, generally NAD EYES: normal conjunctivae, no scleral icterus ENT: external ear and nose normal, MMM NECK: trachea midline RESPIRATORY: clear to auscultation bilaterally, no crackles, rales or wheezes, normal respiratory effort CARDIOVASCULAR: regular rate and rhythm, S1 and 2 heard without murmurs, gallops or rubs, no JVD, no peripheral edema CHEST: inspection of chest was normal GASTROINTESTINAL: soft, nontender, ND MUSCULOSKELETAL: strength 5/5 throughout, head is normocephalic and atraumatic, SKIN: warm and dry, NEUROLOGIC: CN 2-12 grossly intact, no sensory deficit, normal cognition, normal speech, no tremor PSYCHIATRIC: alert cooperative and oriented to person, place and time. Euthymic mood, makes good eye contact, language grossly intact, recent and wild te memory grossly intact. Results & Data Results & Data ([facility]) Vital Signs (Past 12 Hours) Vital Signs Temp Pulse Pulse Resp BP BP Pulse Ox 07/10/22 10:55 36.5 C 70 25 H 117/79 99 07/10/22 07:01 36.5 C 69 23 106/65 95 07/10/22 03:00 36.5 C 81 18 117/75 94 O2 Del Method O2 Flow Rate 07/10/22 10:55 Nasal Cannula 2 07/10/22 07:01 Oxymask 2 07/10/22 03:00 Nasal Cannula 2 Laboratory Results Short CBC 07/10/22 Range/Units 08:25 WBC 15.74 H (4.8-10.8) K/ul Hgb 10.1 L (14.0-18.0) g/dl Hct 32.7 L (40.1-51.0) % Plt Count 298 (130-400) K/uL BMP 07/09/22 07/10/22 15:28 05:34 Sodium 137 138 Potassium 5.5 H 4.9 Chloride 87 L 88 L Carbon Dioxide > 45 H* 45 H* BUN 62 H 60 H Creatinine 1.71 H 1.53 H Glucose 174 H 113 H Calcium 9.7 9.6 Diagnostic Findings Chest X-Ray 07/10/22 07:00 XR chest 1V portable HISTORY: 71 years-old Male hypoxia acute hypoxia COMPARISON: Chest radiograph 07/06/2022 TECHNIQUE: Portable AP view of the chest FINDINGS: Cardiac silhouette is enlarged. Left subclavian pacer/AICD. Unchanged reticular nodular opacities with mild right hemidiaphragmatic elevation. No pneumothorax. Trace pleural effusions with mild intermixed bilateral airspace opacities which have slightly improved. Degenerative changes of the shoulders and spine. IMPRESSION: Reticular-nodular opacities with ill-defined airspace densities appear stable to slightly improved from 07/06/2022. ACT 112: Negative or not required by law. The above report was generated using voice recognition software. It may contain grammatical, syntax or spelling errors. Electronically signed by: Rogelio Sapp M.D. 07/10/2022 7:08 AM Medications Administered Current Inpatient Medications Acetaminophen (Acetaminophen 325 Mg Tab) 650 mg PO Q4H PRN PRN Reason: Pain or Fever Stop: 07/21/22 21:34 Last Admin: 06/21/22 22:00 Dose: 650 mg Albuterol (Albut/Ipratrop 3mg/0.5mg Neb 3 Ml Vial) 3 ml NEB Q6R PRN; Protocol PRN Reason: SOB/wheezin Stop: 07/30/22 12:59 Last Admin: 07/07/22 03:08 Dose: 3 ml Allopurinol (Allopurinol 100 Mg Tab) 100 mg PO QAM [facility] Stop: 07/22/22 08:59 Last Admin: 07/10/22 09:15 Dose: 100 mg Atorvastatin Calcium (Atorvastatin 40 Mg Tab) 40 mg PO HS [facility] Stop: 07/21/22 20:59 Last Admin: 07/09/22 20:13 Dose: 40 mg Benzonatate (Benzonatate 100 Mg Capsule) 200 mg PO TID PRN PRN Reason: Cough Stop: 07/21/22 20:25 Cetirizine HCl (Cetirizine Hcl 10 Mg Tablet) 5 mg PO QAM [facility] Stop: 07/22/22 08:59 Last Admin: 07/10/22 09:13 Dose: 5 mg Cyanocobalamin (Cyanocobalamin (B-12) 100 Mcg Tablet) 100 mcg PO DAILY [facility] Stop: 07/22/22 08:59 Last Admin: 07/10/22 09:15 Dose: 100 mcg Folic Acid (Folic Acid 1 Mg Tab) 1 mg PO QDL [facility] Stop: 07/22/22 11:29 Last Admin: 07/10/22 11:45 Dose: 1 mg Furosemide (Furosemide 40 Mg Tab) 40 mg PO QAM [facility] Stop: 08/07/22 08:59 Last Admin: 07/08/22 09:54 Dose: 40 mg Furosemide (Furosemide 40 Mg/4 Ml Vial) 40 mg IV DAILY [facility] Stop: 08/08/22 08:59 Last Admin: 07/10/22 09:13 Dose: 40 mg Magnesium Oxide (Magnesium Oxide 400 Mg Tab) 400 mg PO BID@1100,2300 [facility] Stop: 07/26/22 10:59 Last Admin: 07/10/22 11:45 Dose: 400 mg Metoprolol Succinate (Metoprolol Succ 50mg Ext Rel Tab) 50 mg PO DAILY [facility] Stop: 08/01/22 08:59 Last Admin: 07/10/22 09:13 Dose: 50 mg Ondansetron HCl (Ondansetron Inj 2 Mg/Ml 2 Ml Vial) 4 mg IV Q6H PRN PRN Reason: Nausea Stop: 07/21/22 21:34 Pantoprazole Sodium (Pantoprazole 40 Mg Tab) 40 mg PO DAILY [facility] Stop: 07/22/22 08:59 Last Admin: 07/10/22 09:15 Dose: 40 mg Polyethylene Glycol (Polyethylene (Miralax) 17 Gm Pack) 17 gm PO DAILY PRN PRN Reason: Constipation Stop: 07/21/22 21:34 Last Admin: 07/06/22 11:28 Dose: 17 gm Prednisone (Prednisone 20 Mg Tab) 40 mg PO DAILY [facility] Stop: 07/30/22 09:14 Last Admin: 07/10/22 09:15 Dose: 40 mg Rivaroxaban (Rivaroxaban 15 Mg Tab) 15 mg PO QPM [facility] Stop: 08/04/22 20:59 Last Admin: 07/09/22 20:14 Dose: 15 mg Trimethoprim/Sulfamethoxazole (Sulfamethoxazole/Trimethoprim Ds 800/160mg Tab) 1 tab PO MoWeFr@0900 [facility] Stop: 08/07/22 12:59 Last Admin: 07/08/22 12:50 Dose: 1 tab Vitamin D (Cholecalciferol 1,000 Units 25 Mcg Tab) 2,000 units PO QDL [facility] Stop: 07/22/22 11:29 Last Admin: 07/10/22 11:45 Dose: 2,000 units (1) Anemia Anemia type: unspecified type Qualified Code(s): D64.9 - Anemia, unspecified
--- NOTE | 2022-07-10 14:42 | Electrocardiogram Report ---
Test Reason : Blood Pressure : / mmHG Vent. Rate : 077 BPM Atrial Rate : 091 BPM P-R Int : 000 ms QRS Dur : 106 ms QT Int : 368 ms P-R-T Axes : 000 -23 144 degrees QTc Int : 416 ms Atrial fibrillation with premature ventricular or aberrantly conducted complexes Low voltage QRS Inferior infarct (cited on or before 03-MAR-2022) Abnormal ECG When compared with ECG of 22-JUN-2022 06:29, Nonspecific T wave abnormality now evident in Lateral leads Confirmed by Wei Alejandra ([id number]) on 07/10/2022 2:41:32 PM Referred By: Chandrakant Herron Confirmed By:Wei Alejandra
--- NOTE | 2022-07-10 15:22 | XRay Report ---
XR chest 1V portable HISTORY: 71 years-old Male SOB acute shortness of breath COMPARISON: Chest radiograph of same day at 6:51 AM TECHNIQUE: Portable AP view of the chest FINDINGS: FINDINGS: Cardiac silhouette is enlarged. Pulmonary vascular congestion. Left subclavian pacer/AICD. Unchanged reticular nodular opacities with mild right hemidiaphragmatic elevation. No pneumothorax. T race pleural effusions with mild intermixed bilateral airspace opacities, also unchanged. Degenerativ e changes of the shoulders and spine. IMPRESSION: Cardiomegaly with stable appearance of the bilateral mixed interstitial and alveolar opac ities. ACT 112: Negative or not required by law. The above report was generated using voice recognition software. It may contain grammatical, syntax o r spelling errors. Electronically signed by: Rogelio Sapp M.D. 07/10/2022 3:19 PM
[2022-07-10 15:31] LABS: Base Excess ABG 28.8 mEq/L (-9-1.8); HCO3 ABG 58 mmol/L (19-24); PCO2 ABG 74 mmHg (35-46); PO2 ABG 104 mmHg (80-95)
[2022-07-10 15:34] LABS: Allen Test Pos (Pos)
[2022-07-10] MEDS ORDERED: acetaZOLAMIDE 250 MG in DEXTROSE 5% 100 ML IV ONE (16:30)
--- NOTE | 2022-07-10 17:17 | Communication Note ---
Date of Service: July 10, [address] Alvarado with regards to episode of respiratory distress requiring BiPap. Given history of pulmonary hemorrhage earlier this hospital stay , will hold Froy again.
[2022-07-10] MEDS: ATORVASTATIN 40 MG TAB PO SCH (19:58)
[2022-07-11 06:02] LABS: Basophils # (auto) 0.04 K/uL (0-0.2); Basophils % (auto) 0.2 %; Eosinophils # (auto) 0.02 K/uL (0-0.50); Eosinophils % (auto) 0.1 %; Hematocrit (blood only) 32.7 % (40.1-51.0); Hemoglobin 10.1 g/dl (14.0-18.0); Immature Granulocytes # (auto) 0.87 K/uL (0.00-0.02); Lymphocytes # (auto) 0.55 K/uL (1.2-3.4); Lymphocytes % (auto) 3.2 %; Mean Corpuscular Hemoglobin 32.1 pg (25.0-34.0); Mean Corpuscular Hgb Conc 30.9 g/dL (32.0-36.0); Mean Corpuscular Volume 103.8 fL (80.0-100.0); Mean Platelet Volume 11.3 fL (9.4-12.4); Monocytes # (auto) 1.65 K/uL (0.24-0.82); Monocytes % (auto) 9.5 %; Neutrophils # (auto) 14.19 K/uL (1.4-6.5); Platelet Count 258 K/uL (130-400); RDW Coefficient of Variation 23.1 % (11.5-14.5); RDW Standard Deviation 85.2 fL (36.4-46.3); Red Blood Count 3.15 M/uL (4.63-6.08); White Blood Count 17.32 K/ul (4.8-10.8)
[2022-07-11 06:40] LABS: Potassium 4.4 mmol/L (3.5-5.1)
[2022-07-11 06:41] LABS: BUN Creatinine Ratio 40.7 (10-20); Calcium 9.2 mg/dl (8.5-10.1); Creatinine Clr Calc Pharmacy 55.5 ml/min; Est GFR (Non-African American) 47.4 ml/min
[2022-07-11 06:52] LABS: Anisocytosis Present
[2022-07-11] MEDS: predniSONE 20 MG TAB PO SCH (09:04)
[2022-07-11] MEDS: allopurinoL 100 MG TAB PO SCH (09:05)
[2022-07-11] MEDS: CYANOCOBALAMIN (B-12) 100 MCG TABLET PO SCH (09:05)
[2022-07-11] MEDS: METOPROLOL SUCC 50MG EXT REL TAB PO SCH (09:05)
[2022-07-11] MEDS: CETIRIZINE HCL 10 MG TABLET PO SCH (09:05)
[2022-07-11] MEDS: PANTOprazole 40 MG TAB PO SCH (09:05)
--- NOTE | 2022-07-11 09:34 | Cardiology Progress Note ---
Date of Service July 11, 2022 Assessment & Plan (1) Chronic respiratory failure with hypoxia and hypercapnia: (2) Chronic systolic heart failure: (3) ILD (interstitial lung disease): Plan Complex 71-year-old patient admitted with acute respiratory failure. Initially treated with aggressive diuresis and subsequent azotemia, contraction alkalosis in setting of CO2 retention, primary respiratory acidosis. Diuretic therapy de- escalated, ultimately held for several days with improvement of renal function. Creatinine trending downward this morning. Does not appear overtly volume overloaded. Pulmonary exam with chronic crackles. No JVD or edema to suggest volume overload. Echocardiogram performed during hospitalization demonstrates stable, moderate reduced LV systolic function. Atrial fibrillation rate controlled on telemetry. Confucianism of sinus rhythm unlikely to be unsuccessful in the setting of chronic respiratory failure. IV Lasix held today as well. Recommend restart Lasix 40 mg orally daily. Follow GFR and electrolytes. BiPAP nightly. Admission and Anticipated Discharge Date Admission Date: June 21, 2022 Subjective Patient seen examined the bedside. Awake and alert. Oxygen saturation 94% on 4 L nasal cannula. Denies chest pain or shortness of breath. No palpitations, lightheadedness, or dizziness. Telemetry reveals atrial fibrillation with heart rate ranging from 70-80 bpm at rest. Fluid balance negative 1047cc. Review of Systems Review of Systems: All systems reviewed & are unremarkable except as noted in Subjective Physical Exam Constitutional: well nourished and + ill appearing; no acute distress Respiratory: no retractions and does not use accessory muscles Auscultation: + crackles (Bilateral); no rhonchi and no wheezes Cardiovascular: Rate/Rhythm: + irregularly irregular Heart Sounds: normal S1 and normal S2; no murmur Vessels: radial pulses present; no JVD and no carotid bruit Extremities: no edema Gastrointestinal (Abdomen): Inspection/Auscultation: normal bowel sounds; abdomen not distended Percussion/Palpation: abdomen soft; abdomen nontender, no guarding and abdomen not rigid Neurologic: CN's II-XI intact bilaterally and moves all extremities; no focal motor deficits Psychiatric: A+Ox3, euthymic affect Results & Data ([facility]) Vital Signs (Past 12 Hours) Vital Signs Temp Pulse Pulse Pulse Resp BP Pulse Ox 07/11/22 07:00 36.6 C 73 16 116/74 100 07/11/22 08:14 09/11/22 22:20 92 H 9 L 97 07/11/22 03:00 36.5 C 97 H 18 128/86 98 07/11/22 00:49 71 07/11/22 00:49 07/10/22 23:30 36.4 C L 64 18 115/75 100 O2 Del Method O2 Flow Rate FiO2 07/11/22 07:00 Nasal Cannula 4 07/11/22 08:14 Nasal Cannula 4 07/10/22 22:20 40 07/11/22 03:00 Nasal Cannula 4 07/11/22 00:49 07/11/22 00:49 BiPAP 07/10/22 23:30 BiPAP
--- NOTE | 2022-07-11 10:35 | Nephrology Progress Note ---
Date of Service July 11, 2022 Assessment & Plan (1) Disorder of acid-base balance: Plan: chronic and severely elevated bicarbonate d/t his severe chronic hypercarbia and with recurrent issues w/ hyperkalemia not unexpected w/ acid base issues. oral and IV ethacrynic acid ->>>recommend ethacrynic acid rather than lasix d/t his alkalemia on blood gas yesterday > 25 mg po bid rather than lasix; will d/w cardiology -continue daily bmp ->>>keep 02 sats at 88-90% d/t hypercarbia Care coordinated w/ primary service and cardiology (2) SOB (shortness of breath): Plan: worsening respiratory status past 24 hrs; pulmonary hemorrhage earlier this admission and xarelto on hold >resume diuretics as above >low threshold to re-involve pulmonary if persistent/worsening (3) Acute on chronic renal failure: Plan: baseline creatinine mid ones; creatinine at baseline on admission 06/21. renal function was at baseline until 06/30 when it uptrended to peak at 2.2 - this is about the time that the diuretics stopped; renal function came back to baseline where it's been since 07/04. diuretics have essentially been on hold since then but clinically pt needs to restart at least low dose. presume ATN resolved Admission and Anticipated Discharge Date Admission Date: June 21, 2022 Subjective had respiratory stress needing bipap yesterday afternoon; this AM on 4LNC (had been on 2-3 for a few days prior to yesterday). denies sob, uncontrolled pain, n/v, edema. Review of Systems Review of Systems: All systems reviewed & are unremarkable except as noted in Subjective Physical Exam Constitutional: well developed, + cachectic, + frail appearing and coopera tive; no acute distress Eyes: EOM intact bilaterally ENMT: Ears: + hearing impairment; no external ear abnormality Nose: no external nose abnormality Mouth: + dry oral mucous membranes Neck: no nuchal rigidity Respiratory: normal respiratory effort Auscultation: + diminished lung sounds, + crackles (coarse ) and + bronchovesicular breath sounds (tubular breath sounds) Cardiovascular: Rate/Rhythm: regular rate and regular rhythm Extremities: no edema Gastrointestinal (Abdomen): Inspection/Auscultation: normal bowel sounds Percussion/Palpation: abdomen soft; abdomen nontender Musculoskeletal: Extremities: strength 5/5 throughout Skin: no rashes, warm and dry 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, 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, no tremor Psychiatric: Orientation: oriented to person and cooperative Genitourinary: cruz w/ ample light yellow urine Results & Data ([facility]) Vital Signs (Past 12 Hours) Vital Signs Temp Pulse Pulse Pulse Resp BP Pulse Ox 07/11/22 07:00 36.6 C 73 16 116/74 100 07/11/22 08:14 07/11/22 03:00 36.5 C 97 H 18 128/86 98 07/11/22 00:49 71 07/11/22 00:49 07/10/22 23:30 36.4 C L 64 18 115/75 100 O2 Del Method O2 Flow Rate 07/11/22 07:00 Nasal Cannula 4 07/11/22 08:14 Nasal Cannula 4 07/11/22 03:00 Nasal Cannula 4 07/11/22 00:49 07/11/22 00:49 BiPAP 07/10/22 23:30 BiPAP Laboratory Results 07/11/22 05:29 07/11/22 05:29 ABG reviewed Diagnostic Findings cxr IMPRESSION: Cardiomegaly with stable appearance of the bilateral mixed interstitial and alveolar opacities.
[2022-07-11] MEDS: FOLIC ACID 1 MG TAB PO SCH (11:05)
[2022-07-11] MEDS: MAGNESIUM OXIDE 400 MG TAB PO SCH ×2 (11:05→20:50)
[2022-07-11] MEDS: CHOLECALCIFEROL 1,000 UNITS 25 MCG TAB PO SCH (11:05)
[2022-07-11] MEDS: ETHACRYNIC ACID 25 MG TAB PO SCH (13:21)
--- NOTE | 2022-07-11 15:51 | Hospitalist Progress Note ---
Date of Service July 11, 2022 Assessment & Plan (1) Acute on chronic respiratory failure with hypoxia: Plan: Initially hypoxic 2/2 acute heart failure with reduced ejection fraction. He then became hypercapnic and required BIPAP in the ICU. Tachypnea re-emerged on 07/06, increased fluid on repeat CXR and no evidence of hypercapnia on repeat ABG. Likely worsening fluid overload after lasix was held in setting of YELENA. Additional risk factors for fluid overload include ongoing atrial fibrillation with low ejection fraction, new prednisone therapy that may cause additional fluid retention, and low activity level causing inability to mobilize fluid naturally. Restarted Lasix with improvement, however, he continues to have desaturation episodes with minimal movement. Diuresis being managed per Nephro. 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 He developed progressive hypoxic respiratory failure with diffuse pulmonary infiltrates and bronchoscopy was performed which revealed BAL findings consistent with alveolar hemorrhage. Cytology was negative. He was placed on steroids and Bactrim for infectious prophylaxis. Regarding work-up for his pulmonary hemorrhage, MIRANDA and ANCA were both negative. Etiology was felt to be bleeding related to chemotherapy and ongoing anticoagulation. Xarelto has been held. Pneumocystis [place] pneumonia PCR was negative and Fungitell was negative. Notably he has completed a course of antibiotics for possible pneumonia. He has not developed any new fevers or worsening cough. Pt had again new episode of acute shortness of breath and increased work of breathing that came on suddenly on 07/10, needed BIPAP/acetazolamide for support. 07/10 ABG w/o acute on chronic hypercarbia. He is a confirmed full code per family and patient who are all in the room together. Low threshold for pulm reconsult if w/ worsening repiratory status. Leucocytosis likely d/t steroid use. (2) Acute decompensated heart failure: Plan: Plan as above. (3) Acute on chronic renal failure: Plan: Creatinine is stable/improved on am labs today. Cont daily BMP. (4) ILD (interstitial lung disease): Plan: Prednisone taper with bactrim prophylaxis per pulmonology. With ongoing hyperkalemia, this was held. 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 Cont to hold in setting of renal compromise. As this improves we may have less of an issue using Bactrim. Alternative prophylaxis includes dapsone. G6Pd def request is a reference lab and is pending. (5) Lung cancer: Plan: h/o lung cancer with metastatic disease. Per oncology (6) Paroxysmal atrial fibrillation: Plan: persistent afib rhythm on telemetry. Rate is controlled with metoprolol. Xarelto on hold d/t pulm hge, Card on board. (7) Anemia: Plan: chronic, multifactorial. Notably H/H is improved with 10.1/32.7 up from 9.6/31.6 and no further hemoptysis. He is not thought to be actively bleeding at this time. Cont to monitor. (8) DVT prophylaxis: Plan: SCDs until xarelto on hold. Full Code Dispo-cont PCU monitoring. Admission and Anticipated Discharge Date Admission Date: June 21, 2022 Subjective Patient seen and examined at bedside as a follow-up of acute on chronic respiratory failure with hypoxia, acute decompensated heart failure, acute on chronic renal failure. Patient was lying semiupright in bed, on 4 L nasal cannula oxygen, alert and awake, denies any new acute events overnight, needed BiPAP yesterday afternoon due to respiratory distress, reports eating okay and feeling better, denies chest pain/dizziness/headache/cough, reports moving bowels okay. Physical Exam Physical Exam: GENERAL: Alert and oriented x3. NAD, on 4L NC O2. HEENT: No pallor, no icterus. Pupils equal, round and reactive to light. Oral mucosa moist. NECK: No JVD, no neck masses. HEART: S1 and S2 heard. Regular rate and rhythm. No murmur, no gallop. RESPIRATORY SYSTEM: Normal AP diameter. No accessory muscle use. No wheezing, b/b crackles. ABDOMEN: Soft, bowel sounds present, nontender, no distention. CENTRAL NERVOUS SYSTEM: No facial droop. Speech is clear. Obeys simple commands. Moves extremities. EXTREMITIES: No edema, no erythema seen. Results & Data Results & Data ([facility]) Vital Signs (Past 12 Hours) Vital Signs Temp Pulse Resp BP Pulse Ox O2 Del Method O2 Flow Rate 07/11/22 15:08 36.8 C 71 22 94/57 L 100 Nasal Cannula 4 07/11/22 11:00 36.4 C L 80 18 109/61 98 Nasal Cannula 4 07/11/22 07:00 36.6 C 73 16 116/74 100 Nasal Cannula 4 07/11/22 08:14 Nasal Cannula 4 (1) Anemia Anemia type: unspecified type Qualified Code(s): D64.9 - Anemia, unspecified
[2022-07-11] MEDS: ATORVASTATIN 40 MG TAB PO SCH (20:49)
[2022-07-12 06:48] LABS: Hematocrit (blood only) 32.6 % (40.1-51.0); Hemoglobin 10.1 g/dl (14.0-18.0); Mean Corpuscular Hemoglobin 32.4 pg (25.0-34.0); Mean Corpuscular Volume 104.5 fL (80.0-100.0); Mean Platelet Volume 11.2 fL (9.4-12.4); Platelet Count 225 K/uL (130-400); RDW Coefficient of Variation 22.8 % (11.5-14.5); RDW Standard Deviation 86.1 fL (36.4-46.3); Red Blood Count 3.12 M/uL (4.63-6.08); White Blood Count 14.53 K/ul (4.8-10.8)
[2022-07-12 07:35] LABS: BUN Creatinine Ratio 37.2 (10-20); Blood Urea Nitrogen 58 mg/dl (6-23); Calcium 9.2 mg/dl (8.5-10.1); Carbon Dioxide > 45 mmol/L (21-32); Chloride 89 mmol/L (98-107); Creatinine Clr Calc Pharmacy 47.7 ml/min; Est GFR (African American) 50.3 ml/min; Est GFR (Non-African American) 43.4 ml/min; Glucose 109 mg/dl (70-99(Fasting)); Phosphorus 4.4 mg/dl (2.5-4.9); Potassium 4.7 mmol/L (3.5-5.1); Sodium 138 mmol/L (136-145)
[2022-07-12] MEDS: METOPROLOL SUCC 50MG EXT REL TAB PO SCH (08:53)
[2022-07-12] MEDS: PANTOprazole 40 MG TAB PO SCH (08:53)
[2022-07-12] MEDS: predniSONE 20 MG TAB PO SCH (08:53)
[2022-07-12] MEDS: CETIRIZINE HCL 10 MG TABLET PO SCH (08:54)
[2022-07-12] MEDS: allopurinoL 100 MG TAB PO SCH (08:54)
[2022-07-12] MEDS: CYANOCOBALAMIN (B-12) 100 MCG TABLET PO SCH (08:54)
--- NOTE | 2022-07-12 09:04 | Cardiology Progress Note ---
Date of Service July 12, 2022 Assessment & Plan (1) Chronic respiratory failure with hypoxia and hypercapnia: (2) Chronic systolic heart failure: (3) ILD (interstitial lung disease): Plan Lasix transition to ethacrynic acid per discussion with nephrology. Follow fluid balance, daily weight, GFR, and electrolytes. Maintain negative fluid balance as renal function allows. Creatinine currently at baseline. Maintain oxygen supplementation as needed. BiPAP nightly. Telemetry reveals atrial fibrillation with controlled ventricular response. Continue rate control strategy and anticoagulation with rivaroxaban. Admission and Anticipated Discharge Date Admission Date: June 21, 2022 Subjective Patient seen examined the bedside. Reports feeling weak however denies shortness of breath or chest discomfort at rest per telemetry reveals rate controlled atrial fibrillation with PVCs. Fluid balance -975 cc. Lasix transition to ethacrynic acid by nephrology. Oxygen saturation 97% on 3 L nasal cannula at rest. Review of Systems Review of Systems: All systems reviewed & are unremarkable except as noted in Subjective Physical Exam Constitutional: well nourished and + ill appearing; no acute distress Respiratory: no retractions and does not use accessory muscles Auscultation: + crackles (Bilateral); no rhonchi and no wheezes Cardiovascular: Rate/Rhythm: + irregularly irregular Heart Sounds: normal S1 and normal S2; no murmur Vessels: radial pulses present; no JVD and no carotid bruit Extremities: no edema Gastrointestinal (Abdomen): Inspection/Auscultation: normal bowel sounds; abdomen not distended Percussion/Palpation: abdomen soft; abdomen nontender, no guarding and abdomen not rigid Neurologic: CN's II-XI intact bilaterally and moves all extremities; no focal motor deficits Psychiatric: A+Ox3, euthymic affect Results & Data ([facility]) Vital Signs (Past 12 Hours) Vital Signs Temp Pulse Pulse Resp BP Pulse Ox O2 Del Method 07/12/22 07:54 82 07/12/22 07:28 36.5 C 63 16 111/75 100 Nasal Cannula 07/12/22 03:57 36.4 C L 62 14 97/62 L 100 Nasal Cannula 07/11/22 22:55 36.8 C 80 27 H 110/67 97 Nasal Cannula 07/11/22 22:58 70 07/11/22 22:27 68 27 H 100 07/11/22 21:21 Nasal Cannula O2 Flow Rate FiO2 07/12/22 07:54 07/12/22 07:28 3 07/12/22 03:57 4 07/11/22 22:55 4 07/11/22 22:58 07/11/22 22:27 40 07/11/22 21:21 4
[2022-07-12] MEDS: ETHACRYNIC ACID 25 MG TAB PO SCH (10:38)
--- NOTE | 2022-07-12 11:00 | Nephrology Progress Note ---
Date of Service July 12, 2022 Assessment & Plan (1) Disorder of acid-base balance: Plan: chronic and severely elevated bicarbonate d/t his severe chronic hypercarbia and with recurrent issues w/ hyperkalemia not unexpected w/ acid base issues. oral and IV ethacrynic acid -continue ethacrynic acid current dose rather than lasix d/t his alkalemia; have d/w cardiology -continue daily bmp ->>>keep 02 sats at 88-90% d/t hypercarbia; reviewed w/ nursing (2) SOB (shortness of breath): Plan: somewhat stabilized respiratory status past 24 hrs; pulmonary hemorrhage earlier this admission and xarelto on hold >diuretics as above >low threshold to re-involve pulmonary if persistent/worsening (3) Acute on chronic renal failure: Plan: resolved. baseline creatinine mid ones; creatinine at baseline on admission 06/21. renal function was at baseline until 06/30 when it uptrended to peak at 2.2 - this is about the time that the diuretics stopped; renal function came back to baseline where it's been since 07/04. diuretics had essentially been on hold since then but clinically pt needed 07/11 to restart low dose. presume ATN res olved Admission and Anticipated Discharge Date Admission Date: June 21, 2022 Subjective pt had spell w/ more sob. and sister at [facility] this am. Review of Systems Review of Systems: All systems reviewed & are unremarkable except as noted in Subjective Physical Exam Constitutional: well developed, well nourished, + cachectic, + frail appearing and cooperative; no acute distress Eyes: EOM intact bilaterally ENMT: Ears: + hearing impairment; no external ear abnormality Nose: no external nose abnormality Mouth: + dry oral mucous membranes Neck: no nuchal rigidity Respiratory: normal respiratory effort Auscultation: + diminished lung sounds, + crackles (coarse ) and + bronchovesicular breath sounds (tubular breath sounds) Cardiovascular: Rate/Rhythm: regular rate and regular rhythm Extremities: no edema Gastrointestinal (Abdomen): Inspection/Auscultation: normal bowel sounds Percussion/Palpation: abdomen soft; abdomen nontender Musculoskeletal: Extremities: strength 5/5 throughout Skin: no rashes, warm and dry 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, 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, no tremor Psychiatric: Orientation: oriented to person and cooperative Genitourinary: cruz w/ ample yellow urine Results & Data ([facility]) Vital Signs (Past 12 Hours) Vital Signs Temp Pulse Pulse Resp BP Pulse Ox O2 Del Method 07/12/22 07:54 82 07/12/22 07:28 36.5 C 63 16 111/75 100 Nasal Cannula 07/12/22 03:57 36.4 C L 62 14 97/62 L 100 Nasal Cannula 07/11/22 22:55 36.8 C 80 27 H 110/67 97 Nasal Cannula 07/11/22 22:58 70 O2 Flow Rate 07/12/22 07:54 07/12/22 07:28 3 07/12/22 03:57 4 07/11/22 22:55 4 07/11/22 22:58 Laboratory Results 07/12/22 06:06 07/12/22 06:06
[2022-07-12] MEDS: MAGNESIUM OXIDE 400 MG TAB PO SCH ×2 (11:35→21:23)
[2022-07-12] MEDS: CHOLECALCIFEROL 1,000 UNITS 25 MCG TAB PO SCH (11:35)
[2022-07-12] MEDS: FOLIC ACID 1 MG TAB PO SCH (11:35)
--- NOTE | 2022-07-12 14:50 | Hospitalist Progress Note ---
Date of Service July 12, 2022 Assessment & Plan (1) Acute on chronic respiratory failure with hypoxia: Plan: Initially hypoxic 2/2 acute heart failure with reduced ejection fraction. He then became hypercapnic and required BIPAP in the ICU. Tachypnea re-emerged on 07/06, increased fluid on repeat CXR and no evidence of hypercapnia on repeat ABG. Likely worsening fluid overload after lasix was held in setting of YELENA. Additional risk factors for fluid overload include ongoing atrial fibrillation with low ejection fraction, new prednisone therapy that may cause additional fluid retention, and low activity level causing inability to mobilize fluid naturally. Restarted Lasix with improvement, however, he continues to have desaturation episodes with minimal movement. Diuresis being managed per Nephro. 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 He developed progressive hypoxic respiratory failure with diffuse pulmonary infiltrates and bronchoscopy was performed which revealed BAL findings consistent with alveolar hemorrhage. Cytology was negative. He was placed on steroids and Bactrim for infectious prophylaxis. Regarding work-up for his pulmonary hemorrhage, MIRANDA and ANCA were both negative. Etiology was felt to be bleeding related to chemotherapy and ongoing anticoagulation. xarelto was held which is now resumed. Pneumocystis [place] pneumonia PCR was negative and Fungitell was negative. Notably he has completed a course of antibiotics for possible pneumonia. He has not developed any new fevers or worsening cough. Pt had again new episode of acute shortness of breath and increased work of breathing that came on suddenly on 07/10, needed BIPAP/acetazolamide for support. 07/10 ABG w/o acute on chronic hypercarbia. He is a confirmed full code per family and patient who are all in the room together. Low threshold for pulm reconsult if w/ worsening repiratory status. C/w SpO2 88-90%, wean down O2 as fidelina. Pt counselled to use BPAP as tolerated, used only 1 hour last night. Leucocytosis likely d/t steroid use. (2) Acute decompensated heart failure: Plan: Plan as above. (3) Acute on chronic renal failure: Plan: Creatinine is stable on am labs today. Cont daily BMP. (4) ILD (interstitial lung disease): Plan: Prednisone taper with bactrim prophylaxis per pulmonology. With ongoing hyperkalemia, this was held. 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 Cont to hold in setting of renal compromise. As this improves we may have less of an issue using Bactrim. Alternative prophylaxis includes dapsone. G6Pd def request is a reference lab and is pending. (5) Lung cancer: Plan: h/o lung cancer with metastatic disease. Per oncology (6) Paroxysmal atrial fibrillation: Plan: persistent afib rhythm on telemetry. Rate is controlled with metoprolol. Xarelto resumed, Card on board. (7) Anemia: Plan: chronic, multifactorial. Notably H/H is improved with 10.1/32.6 up from 9.6/31.6 and no further hemoptysis. He is not thought to be actively bleeding at this time. Cont to monitor. (8) DVT prophylaxis: Plan: Xarelto Full Code Dispo-cont PCU monitoring. Admission and Anticipated Discharge Date Admission Date: June 21, 2022 Subjective Patient seen and examined at bedside as a follow-up of acute on chronic respiratory failure with hypoxia, acute decompensated heart failure, acute on chronic renal failure. Patient was lying semiupright in bed, on 3 L nasal cannula oxygen, alert and awake, reports feeling tired, used BPAP for 1 hour only overnight, agreed to use atleast 4 hours during the day, denies any new acute events overnight, reports eating okay and feeling better, denies chest pain/dizziness/headache/cough. Physical Exam Physical Exam: GENERAL: Alert and oriented x3. NAD, on 3L NC O2. HEENT: No pallor, no icterus. Pupils equal, round and reactive to light. Oral mucosa moist. NECK: No JVD, no neck masses. HEART: S1 and S2 heard. irregular rate and rhythm. No murmur, no gallop. RESPIRATORY SYSTEM: Normal AP diameter. No accessory muscle use. No wheezing, no crackles. ABDOMEN: Soft, bowel sounds present, nontender, no distention. CENTRAL NERVOUS SYSTEM: No facial droop. Speech is clear. Obeys simple commands. Moves extremities. EXTREMITIES: No edema, no erythema seen. Results & Data Results & Data ([facility]) Vital Signs (Past 12 Hours) Vital Signs Temp Pulse Pulse Pulse Resp BP Pulse Ox 07/12/22 13:21 88 24 94 07/12/22 11:27 36.4 C L 79 18 98/64 L 92 07/12/22 11:14 07/12/22 11:08 93 07/12/22 07:54 82 07/12/22 07:28 36.5 C 63 16 111/75 100 07/12/22 03:57 36.4 C L 62 14 97/62 L 100 O2 Del Method O2 Flow Rate FiO2 07/12/22 13:21 40 07/12/22 11:27 Nasal Cannula 1 07/12/22 11:14 Room Air 07/12/22 11:08 Nasal Cannula 1 07/12/22 07:54 07/12/22 07:28 Nasal Cannula 3 07/12/22 03:57 Nasal Cannula 4 (1) Anemia Anemia type: unspecified type Qualified Code(s): D64.9 - Anemia, unspecified
[2022-07-12] MEDS: ATORVASTATIN 40 MG TAB PO SCH (20:04)
[2022-07-12] MEDS: RIVAROXABAN 15 MG TAB PO SCH (21:23)
[2022-07-13 07:05] LABS: Basophils # (auto) 0.02 K/uL (0-0.2); Basophils % (auto) 0.1 %; Eosinophils # (auto) 0.02 K/uL (0-0.50); Eosinophils % (auto) 0.1 %; Hematocrit (blood only) 31.1 % (40.1-51.0); Hemoglobin 9.7 g/dl (14.0-18.0); Immature Granulocytes # (auto) 0.61 K/uL (0.00-0.02); Lymphocytes # (auto) 0.57 K/uL (1.2-3.4); Lymphocytes % (auto) 3.7 %; Mean Corpuscular Hemoglobin 32.2 pg (25.0-34.0); Mean Corpuscular Hgb Conc 31.2 g/dL (32.0-36.0); Mean Corpuscular Volume 103.3 fL (80.0-100.0); Mean Platelet Volume 11.6 fL (9.4-12.4); Monocytes # (auto) 1.46 K/uL (0.24-0.82); Monocytes % (auto) 9.5 %; Neutrophils # (auto) 12.76 K/uL (1.4-6.5); Neutrophils % (auto) 82.6 %; Platelet Count 212 K/uL (130-400); RDW Coefficient of Variation 22.5 % (11.5-14.5); RDW Standard Deviation 83.9 fL (36.4-46.3); Red Blood Count 3.01 M/uL (4.63-6.08); White Blood Count 15.44 K/ul (4.8-10.8)
[2022-07-13 07:29] LABS: Anisocytosis Present
[2022-07-13 07:37] LABS: BUN Creatinine Ratio 40.9 (10-20); Calcium 9.2 mg/dl (8.5-10.1); Creatinine Clr Calc Pharmacy 54.3 ml/min; Est GFR (African American) 58.9 ml/min; Est GFR (Non-African American) 50.8 ml/min; Potassium 4.6 mmol/L (3.5-5.1)
[2022-07-13] MEDS: METOPROLOL SUCC 50MG EXT REL TAB PO SCH (07:53)
[2022-07-13] MEDS: PANTOprazole 40 MG TAB PO SCH (07:54)
[2022-07-13] MEDS: allopurinoL 100 MG TAB PO SCH (07:54)
[2022-07-13] MEDS: ETHACRYNIC ACID 25 MG TAB PO SCH (07:55)
[2022-07-13] MEDS: CETIRIZINE HCL 10 MG TABLET PO SCH (07:55)
[2022-07-13] MEDS: CYANOCOBALAMIN (B-12) 100 MCG TABLET PO SCH (07:55)
[2022-07-13] MEDS: predniSONE 20 MG TAB PO SCH (07:56)
--- NOTE | 2022-07-13 09:44 | Cardiology Progress Note ---
Date of Service July 13, 2022 Assessment & Plan (1) Chronic respiratory failure with hypoxia and hypercapnia: (2) Chronic systolic heart failure: (3) ILD (interstitial lung disease): Plan Continue ethacrynic acid per discussion with nephrology. Follow fluid balance, daily weight, GFR, and electrolytes. Maintain negative fluid balance as renal function allows. Creatinine trending downward. Maintain SaO2 >88%. BiPAP nightly. Telemetry reveals atrial fibrillation with controlled ventricular response. Continue rate control strategy and cautious anticoagulation with rivaroxaban (transient hemoptysis noted earlier during hospitalization). Admission and Anticipated Discharge Date Admission Date: June 21, 2022 Subjective Patient seen examined the bedside. Respiratory status unchanged. Out of bed to a chair yesterday. Tolerating ethacrynic acid. Renal function mildly improved. No signs of recurrent hemoptysis Rivaroxaban held earlier during admission due to pulmonary hemorrhage. Per pulmonary medicine note dated 07/02/2022, okay to restart oral anticoagulation if no signs of recurrent pulmonary hemorrhage. Review of Systems Review of Systems: All systems reviewed & are unremarkable except as noted in Subjective Physical Exam Constitutional: well nourished and + ill appearing; no acute distress Respiratory: no retractions and does not use accessory muscles Auscultation: + crackles (Bilateral); no rhonchi and no wheezes Cardiovascular: Rate/Rhythm: + irregularly irregular Heart Sounds: normal S1 and normal S2; no murmur Vessels: radial pulses present; no JVD and no carotid bruit Extremities: no edema Gastrointestinal (Abdomen): Inspection/Auscultation: normal bowel sounds; abdomen not distended Percussion/Palpation: abdomen soft; abdomen nontender, no guarding and abdomen not rigid Neurologic: CN's II-XI intact bilaterally and moves all extremities; no focal motor deficits Psychiatric: A+Ox3, euthymic affect Results & Data ([facility] [place]) Vital Signs (Past 12 Hours) Vital Signs Temp Pulse Pulse Pulse Resp BP Pulse Ox 07/13/22 07:32 36.5 C 68 22 108/70 93 07/13/22 07:04 36.3 C L 75 24 117/73 100 07/13/22 03:00 36.5 C 66 20 116/64 97 07/13/22 01:27 74 07/13/22 01:27 07/12/22 23:09 36.5 C 76 20 109/69 100 O2 Del Method O2 Flow Rate 07/13/22 07:32 Nasal Cannula 1 07/13/22 07:04 Nasal Cannula 2 07/13/22 03:00 Nasal Cannula 2 07/13/22 01:27 07/13/22 01:27 Nasal Cannula 2 07/12/22 23:09 Nasal Cannula
--- NOTE | 2022-07-13 10:21 | Nephrology Progress Note ---
Date of Service July 13, 2022 Assessment & Plan (1) Disorder of acid-base balance: Plan: chronic and severely elevated bicarbonate d/t his severe chronic hypercarbia and with recurrent issues w/ hyperkalemia not unexpected w/ acid base issues. oral and IV ethacrynic acid -continue ethacrynic acid current dose for now rather than lasix d/t his alkalemia/hypercarbia; have d/w cardiology -continue daily bmp ->>>keep 02 sats at 88-90% d/t hypercarbia -will follow peripherally (2) SOB (shortness of breath): Plan: somewhat stabilized respiratory status past 24 hrs; pulmonary hemorrhage earlier this admission and xarelto now no longer on hold >diuretics as above >low threshold to re-involve pulmonary if persistent/worsening (3) Acute on chronic renal failure: Plan: resolved. baseline creatinine mid ones; creatinine at baseline on admission 06/21. renal function was at baseline until 06/30 when it uptrended to peak at 2.2 - this is about the time that the diuretics stopped; renal function came back to baseline where it's been since 07/04. diuretics had essentially been on hold since then but clinically pt needed 07/11 to restart low dose. presume ATN resolved Admission and Anticipated Discharge Date Admission Date: June 21, 2022 Subjective no interval events. still desats just w/ leaning forward, w/ 1-2 sentences Review of Systems Review of Systems: All systems reviewed & are unremarkable except as noted in Subjective Physical Exam Constitutional: well developed, well nourished, + cachectic, + frail appearing and cooperative; no acute distress Eyes: EOM intact bilaterally ENMT: Ears: + hearing impairment; no external ear abnormality Nose: no external nose abnormality Mouth: + dry oral mucous membranes Neck: no nuchal rigidity Respiratory: normal respiratory effort Auscultation: + diminished lung sounds, + crackles (coarse ) and + bronchovesicular breath sounds (tubular breath sounds) Cardiovascular: Rate/Rhythm: regular rate and regular rhythm Extremities: no edema Gastrointestinal (Abdomen): Inspection/Auscultation: normal bowel sounds Percussion/Palpation: abdomen soft; abdomen nontender Musculoskeletal: Extremities: strength 5/5 throughout Skin: no rashes, warm and dry 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, fluent if limited speech, no tremor Psychiatric: Orientation: oriented to person and cooperative Genitourinary: cruz w/ ample yellow urine Results & Data ([facility]) Vital Signs (Past 12 Hours) Vital Signs Temp Pulse Pulse Pulse Resp BP Pulse Ox 07/13/22 07:32 36.5 C 68 22 108/70 93 07/13/22 07:04 36.3 C L 75 24 117/73 100 07/13/22 03:00 36.5 C 66 20 116/64 97 07/13/22 01:27 74 07/13/22 01:27 07/12/22 23:09 36.5 C 76 20 109/69 100 O2 Del Method O2 Flow Rate 07/13/22 07:32 Nasal Cannula 1 07/13/22 07:04 Nasal Cannula 2 07/13/22 03:00 Nasal Cannula 2 07/13/22 01:27 07/13/22 01:27 Nasal Cannula 2 07/12/22 23:09 Nasal Cannula Laboratory Results 07/13/22 06:43 07/13/22 06:43
[2022-07-13] MEDS: MAGNESIUM OXIDE 400 MG TAB PO SCH ×2 (12:41→22:27)
[2022-07-13] MEDS: CHOLECALCIFEROL 1,000 UNITS 25 MCG TAB PO SCH (12:41)
[2022-07-13] MEDS: FOLIC ACID 1 MG TAB PO SCH (12:41)
[2022-07-13] MEDS ORDERED: LORazepam 0.5 MG TAB PO PRN (14:23)
--- NOTE | 2022-07-13 15:55 | Hospitalist Progress Note ---
Date of Service July 13, 2022 Assessment & Plan (1) Acute on chronic respiratory failure with hypoxia: Plan: Initially hypoxic 2/2 acute heart failure with reduced ejection fraction. He then became hypercapnic and required BIPAP in the ICU. Tachypnea re-emerged on 07/06, increased fluid on repeat CXR and no evidence of hypercapnia on repeat ABG. Likely worsening fluid overload after lasix was held in setting of YELENA. Additional risk factors for fluid overload include ongoing atrial fibrillation with low ejection fraction, new prednisone therapy that may cause additional fluid retention, and low activity level causing inability to mobilize fluid naturally. Restarted Lasix with improvement, however, he continues to have desaturation episodes with minimal movement. Diuresis being managed per Nephro. 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 He developed progressive hypoxic respiratory failure with diffuse pulmonary infiltrates and bronchoscopy was performed which revealed BAL findings consistent with alveolar hemorrhage. Cytology was negative. He was placed on steroids and Bactrim for infectious prophylaxis. Regarding work-up for his pulmonary hemorrhage, MIRANDA and ANCA were both negative. Etiology was felt to be bleeding related to chemotherapy and ongoing anticoagulation. xarelto was held which is now resumed. Pneumocystis [place] pneumonia PCR was negative and Fungitell was negative. Notably he has completed a course of antibiotics for possible pneumonia. He has not developed any new fevers or worsening cough. Pt had again new episode of acute shortness of breath and increased work of breathing that came on suddenly on 07/10, needed BIPAP/acetazolamide for support. 07/10 ABG w/o acute on chronic hypercarbia. He is a confirmed full code per family and patient who are all in the room together. Low threshold for pulm reconsult if w/ worsening repiratory status. C/w SpO2 88-90%, wean down O2 as fidelina. Pt counselled to use BPAP as tolerated, used only 1 hour last night - refusing during the day - will add small prn ativan for BiPAP use to try and increase compliance. Leucocytosis likely d/t steroid use. (2) Acute decompensated heart failure: Plan: Plan as above. (3) Acute on chronic renal failure: Plan: Creatinine is stable on am labs today. Cont daily BMP. (4) ILD (interstitial lung disease): Plan: Prednisone taper with bactrim prophylaxis per pulmonology. With ongoing hyperkalemia, this was held. Per pulmonology home economics expert this is not an issue. Cont to hold in setting of renal compromise. As this improves we may have less of an issue using Bactrim. Alternative prophylaxis includes dapsone. G6Pd def request is a reference lab and is pending. (5) Lung cancer: Plan: h/o lung cancer with metastatic disease. Per oncology (6) Paroxysmal atrial fibrillation: Plan: persistent afib rhythm on telemetry. Rate is controlled with metoprolol. Xarelto resumed, Card on board. (7) Anemia: Plan: chronic, multifactorial. Notably H/H is improved with 10.1/32.6 up from 9.6/31.6 and no further hemoptysis. He is not thought to be actively bleeding at this time. Cont to monitor. (8) DVT prophylaxis: Plan: Xarelto Full Code Dispo-cont PCU monitoring. 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 Now stable but unable to wean O2. Patient seen examined the bedside. Respiratory status unchanged. Out of bed to a chair yesterday. Tolerating ethacrynic acid. Renal function mildly improved. No signs of recurrent hemoptysis Rivaroxaban held earlier during admission due to pulmonary hemorrhage. Per pulmonary medicine note dated 07/02/2022, okay to restart oral anticoagulation if no signs of recurrent pulmonary hemorrhage. Denies complaints of chest pain, cough, fever or chills, n/v/d, dsyuria. Review of Systems Review of Systems: All systems reviewed & are unremarkable except as noted in Subjective All systems were reviewed and negative except indicated above Physical Exam Physical Exam: GENERAL: Alert and oriented x3. NAD, on 3L NC O2. HEENT: No pallor, no icterus. Pupils equal, round and reactive to light. Oral mucosa moist. NECK: No JVD, no neck masses. HEART: S1 and S2 heard. irregular rate and rhythm. No murmur, no gallop. RESPIRATORY SYSTEM: Normal AP diameter. No accessory muscle use. No wheezing, no crackles. ABDOMEN: Soft, bowel sounds present, nontender, no distention. CENTRAL NERVOUS SYSTEM: No facial droop. Speech is clear. Obeys simple commands. Moves extremities. EXTREMITIES: No edema, no erythema seen. Results & Data Results & Data ([facility]) Vital Signs (Past 12 Hours) Vital Signs Temp Pulse Pulse Resp BP Pulse Ox O2 Del Method 07/13/22 15:00 36.2 C L 92 H 20 107/62 99 Nasal Cannula 07/13/22 11:33 Nasal Cannula 07/13/22 11:06 36.3 C L 79 36 H 131/77 92 Nasal Cannula 07/13/22 07:32 36.5 C 68 22 108/70 93 Nasal Cannula 07/13/22 07:04 36.3 C L 75 24 117/73 100 Nasal Cannula O2 Flow Rate 07/13/22 15:00 3 07/13/22 11:33 2 07/13/22 11:06 2 07/13/22 07:32 1 07/13/22 07:04 2 Laboratory Results Short CBC 07/13/22 Range/Units 06:43 WBC 15.44 H (4.8-10.8) K/ul Hgb 9.7 L (14.0-18.0) g/dl Hct 31.1 L (40.1-51.0) % Plt Count 212 (130-400) K/uL BMP 07/13/22 06:43 Sodium 138 Potassium 4.6 Chloride 91 L Carbon Dioxide 44 H* BUN 56 H Creatinine 1.37 Glucose 122 H Calcium 9.2 Medications Administered Current Inpatient Medications Acetaminophen (Acetaminophen 325 Mg Tab) 650 mg PO Q4H PRN PRN Reason: Pain or Fever Stop: 07/21/22 21:34 Last Admin: 06/21/22 22:00 Dose: 650 mg Albuterol (Albut/Ipratrop 3mg/0.5mg Neb 3 Ml Vial) 3 ml NEB Q6R PRN; Protocol PRN Reason: SOB/wheezin Stop: 07/30/22 12:59 Last Admin: 07/07/22 03:08 Dose: 3 ml Allopurinol (Allopurinol 100 Mg Tab) 100 mg PO QAM [facility] Stop: 07/22/22 08:59 Last Admin: 07/13/22 07:54 Dose: 100 mg Atorvastatin Calcium (Atorvastatin 40 Mg Tab) 40 mg PO HS [facility] Stop: 07/21/22 20:59 Last Admin: 07/12/22 20:04 Dose: 40 mg Benzonatate (Benzonatate 100 Mg Capsule) 200 mg PO TID PRN PRN Reason: Cough Stop: 07/21/22 20:25 Cetirizine HCl (Cetirizine Hcl 10 Mg Tablet) 5 mg PO QAM [facility] Stop: 07/22/22 08:59 Last Admin: 07/13/22 07:55 Dose: 5 mg Cyanocobalamin (Cyanocobalamin (B-12) 100 Mcg Tablet) 100 mcg PO DAILY [facility] Stop: 07/22/22 08:59 Last Admin: 07/13/22 07:55 Dose: 100 mcg Ethacrynic Acid (Ethacrynic Acid 25 Mg Tab) 25 mg PO QAM [facility] Stop: 08/10/22 11:29 Last Admin: 07/13/22 07:55 Dose: 25 mg Folic Acid (Folic Acid 1 Mg Tab) 1 mg PO QDL [facility] Stop: 07/22/22 11:29 Last Admin: 07/13/22 12:41 Dose: 1 mg Furosemide (Furosemide 40 Mg Tab) 40 mg PO QAM [facility] Stop: 08/07/22 08:59 Last Admin: 07/08/22 09:54 Dose: 40 mg Lorazepam (Lorazepam 0.5 Mg Tab) 0.5 mg PO Q8 PRN PRN Reason: Anxiety Stop: 08/12/22 14:22 Last Admin: 07/13/22 15:01 Dose: 0.5 mg Magnesium Oxide (Magnesium Oxide 400 Mg Tab) 400 mg PO BID@1100,2300 [facility] Stop: 07/26/22 10:59 Last Admin: 07/13/22 12:41 Dose: 400 mg Metoprolol Succinate (Metoprolol Succ 50mg Ext Rel Tab) 50 mg PO DAILY [facility] Stop: 08/12/22 06:14 Last Admin: 07/13/22 07:53 Dose: 50 mg Ondansetron HCl (Ondansetron Inj 2 Mg/Ml 2 Ml Vial) 4 mg IV Q6H PRN PRN Reason: Nausea Stop: 07/21/22 21:34 Pantoprazole Sodium (Pantoprazole 40 Mg Tab) 40 mg PO DAILY [facility] Stop: 07/22/22 08:59 Last Admin: 07/13/22 07:54 Dose: 40 mg Polyethylene Glycol (Polyethylene (Miralax) 17 Gm Pack) 17 gm PO DAILY PRN PRN Reason: Constipation Stop: 07/21/22 21:34 Last Admin: 07/06/22 11:28 Dose: 17 gm Prednisone (Prednisone 20 Mg Tab) 40 mg PO DAILY [facility] Stop: 07/30/22 09:14 Last Admin: 07/13/22 07:56 Dose: 40 mg Rivaroxaban (Rivaroxaban 15 Mg Tab) 15 mg PO QPM [facility] Stop: 08/04/22 20:59 Last Admin: 07/12/22 21:23 Dose: 15 mg Trimethoprim/Sulfamethoxazole (Sulfamethoxazole/Trimethoprim Ds 800/160mg Tab) 1 tab PO MoWeFr@0900 [facility] Stop: 08/07/22 12:59 Last Admin: 07/08/22 12:50 Dose: 1 tab Vitamin D (Cholecalciferol 1,000 Units 25 Mcg Tab) 2,000 units PO QDL [facility] Stop: 07/22/22 11:29 Last Admin: 07/13/22 12:41 Dose: 2,000 units (1) Anemia Anemia type: unspecified type Qualified Code(s): D64.9 - Anemia, unspecified
[2022-07-13] MEDS: ATORVASTATIN 40 MG TAB PO SCH (20:12)
[2022-07-13] MEDS: RIVAROXABAN 15 MG TAB PO SCH (20:12)
[2022-07-14 06:58] LABS: Basophils # (auto) 0.05 K/uL (0-0.2); Basophils % (auto) 0.3 %; Eosinophils # (auto) 0.04 K/uL (0-0.50); Eosinophils % (auto) 0.2 %; Hematocrit (blood only) 31.3 % (40.1-51.0); Immature Granulocytes # (auto) 0.63 K/uL (0.00-0.02); Immature Granulocytes % (auto) 3.4 %; Lymphocytes # (auto) 0.67 K/uL (1.2-3.4); Lymphocytes % (auto) 3.6 %; Mean Corpuscular Hemoglobin 32.6 pg (25.0-34.0); Mean Corpuscular Hgb Conc 31.9 g/dL (32.0-36.0); Monocytes # (auto) 1.52 K/uL (0.24-0.82); Monocytes % (auto) 8.2 %; Neutrophils # (auto) 15.74 K/uL (1.4-6.5); Neutrophils % (auto) 84.3 %; Platelet Count 180 K/uL (130-400); RDW Coefficient of Variation 22.5 % (11.5-14.5); RDW Standard Deviation 82.3 fL (36.4-46.3); Red Blood Count 3.07 M/uL (4.63-6.08); White Blood Count 18.65 K/ul (4.8-10.8)
[2022-07-14 07:20] LABS: Anisocytosis Present; Basophilic Stippling 1+; Polychromasia 1+
[2022-07-14 07:38] LABS: BUN Creatinine Ratio 39.8 (10-20); Calcium 9.3 mg/dl (8.5-10.1); Creatinine Clr Calc Pharmacy 47.2 ml/min; Est GFR (Non-African American) 52.7 ml/min; Magnesium 1.8 mg/dl (1.7-2.4); Potassium 4.4 mmol/L (3.5-5.1)
[2022-07-14] MEDS: CETIRIZINE HCL 10 MG TABLET PO SCH (08:10)
[2022-07-14] MEDS: predniSONE 20 MG TAB PO SCH (08:10)
[2022-07-14] MEDS: ETHACRYNIC ACID 25 MG TAB PO SCH (08:11)
[2022-07-14] MEDS: METOPROLOL SUCC 50MG EXT REL TAB PO SCH (08:11)
[2022-07-14] MEDS: PANTOprazole 40 MG TAB PO SCH (08:11)
[2022-07-14] MEDS: CYANOCOBALAMIN (B-12) 100 MCG TABLET PO SCH (08:11)
[2022-07-14] MEDS: allopurinoL 100 MG TAB PO SCH (08:11)
--- NOTE | 2022-07-14 09:42 | Cardiology Progress Note ---
Date of Service July 14, 2022 Assessment & Plan (1) Chronic respiratory failure with hypoxia and hypercapnia: (2) Chronic systolic heart failure: (3) ILD (interstitial lung disease): Plan Continue oral diuretic therapy. Maintain even to negative fluid balance. Follow fluid balance, daily weight, GFR, and electrolytes. Creatinine trending downward. Maintain SaO2 >88%. BiPAP nightly. Telemetry reveals atrial fibrillation with controlled ventricular response. Continue rate control strategy and cautious anticoagulation with rivaroxaban (transient hemoptysis noted earlier during hospitalization). Admission and Anticipated Discharge Date Admission Date: June 21, 2022 Subjective Patient seen examined the bedside. Denies chest pain or shortness of breath. Fluid balance negative approximately 1200 cc. Serum creatinine trending downward. Offers no new concerns/complaints. Review of Systems Review of Systems: All systems reviewed & are unremarkable except as noted in Subjective Physical Exam Constitutional: well nourished and + ill appearing; no acute distress Respiratory: no retractions and does not use accessory muscles Auscultation : + crackles (Bilateral); no rhonchi and no wheezes Cardiovascular: Rate/Rhythm: + irregularly irregular Heart Sounds: normal S1 and normal S2; no murmur Vessels: radial pulses present; no JVD and no carotid bruit Extremities: no edema Gastrointestinal (Abdomen): Inspection/Auscultation: normal bowel sounds; abdomen not distended Percussion/Palpation: abdomen soft; abdomen nontender, no guarding and abdomen not rigid Neurologic: CN's II-XI intact bilaterally and moves all extremities; no focal motor deficits Results & Data ([facility]) Vital Signs (Past 12 Hours) Vital Signs Temp Pulse Pulse Resp BP BP Pulse Ox 07/14/22 07:05 36.3 C L 85 19 118/75 100 07/14/22 03:00 36.3 C L 72 18 135/91 94 07/14/22 03:57 77 07/13/22 23:22 36.8 C 77 18 118/71 99 O2 Del Method O2 Flow Rate 07/14/22 07:05 Oxymask 5 07/14/22 03:00 Oxymask 3 07/14/22 03:57 07/13/22 23:22 Oxymask 2
[2022-07-14] MEDS: FOLIC ACID 1 MG TAB PO SCH (11:56)
[2022-07-14] MEDS: CHOLECALCIFEROL 1,000 UNITS 25 MCG TAB PO SCH (11:56)
[2022-07-14] MEDS: MAGNESIUM OXIDE 400 MG TAB PO SCH ×2 (11:56→22:07)
--- NOTE | 2022-07-14 12:36 | Hospitalist Progress Note ---
Date of Service July 14, 2022 Assessment & Plan (1) Acute on chronic respiratory failure with hypoxia: Plan: Initially hypoxic 2/2 acute heart failure with reduced ejection fraction. He then became hypercapnic and required BIPAP in the ICU. Tachypnea re-emerged on 07/06, increased fluid on repeat CXR and no evidence of hypercapnia on repeat ABG. Likely worsening fluid overload after lasix was held in setting of YELENA. Additional risk factors for fluid overload include ongoing atrial fibrillation with low ejection fraction, new prednisone therapy that may cause additional fluid retention, and low activity level causing inability to mobilize fluid naturally. Restarted Lasix with improvement, however, he continues to have desaturation episodes with minimal movement. Diuresis being managed per Nephro. 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 He developed progressive hypoxic respiratory failure with diffuse pulmonary infiltrates and bronchoscopy was performed which revealed BAL findings consistent with alveolar hemorrhage. Cytology was negative. He was placed on steroids and Bactrim for infectious prophylaxis. Regarding work-up for his pulmonary hemorrhage, MIRANDA and ANCA were both negative. Etiology was felt to be bleeding related to chemotherapy and ongoing anticoagulation. xarelto was held which is now resumed. Pneumocystis [place] pneumonia PCR was negative and Fungitell was negative. Notably he has completed a course of antibiotics for possible pneumonia. He has not developed any new fevers or worsening cough. Pt had again new episode of acute shortness of breath and increased work of breathing that came on suddenly on 07/10, needed BIPAP/acetazolamide for support. 07/10 ABG w/o acute on chronic hypercarbia. He is a confirmed full code per family and patient who are all in the room together. Low threshold for pulm reconsult if w/ worsening repiratory status. C/w SpO2 88-90%, wean down O2 as fidelina. Pt counselled to use BPAP as tolerated, used only 1 hour last night - refusing during the day - added small prn ativan for BiPAP use to try and increase compliance. Leucocytosis likely d/t steroid use. (2) Acute decompensated heart failure: Plan: Plan as above. (3) Acute on chronic renal failure: Plan: Creatinine is stable on am labs today. Cont daily BMP. (4) ILD (interstitial lung disease): Plan: Prednisone taper with bactrim prophylaxis per pulmonology. With ongoing hyperkalemia, this was held. Per pulmonology source water protection specialist this is not an issue. Cont to hold in setting of renal compromise. As this improves we may have less of an issue using Bactrim. Alternative prophylaxis includes dapsone. G6Pd def request is a reference lab and is pending. - will start steroid taper decreasing 10mg every week - 40mg until 07/17-->start 30mg daily 07/18 for 1 wee--> 20mg 1 week --> 10mg 1 week --> 5mg 1 week if needed (5) Lung cancer: Plan: h/o lung cancer with metastatic disease. Per oncology (6) Paroxysmal atrial fibrillation: Plan: persistent afib rhythm on telemetry. Rate is controlled with metoprolol. Xarelto resumed, Card on board. (7) Anemia: Plan: chronic, multifactorial. Notably H/H is improved with 10.1/32.6 up from 9.6/31.6 and no further hemoptysis. He is not thought to be actively bleeding at this time. Cont to monitor. (8) DVT prophylaxis: Plan: Xarelto Full Code Dispo-cont PCU monitoring. 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 Now stable but unable to wean O2. Patient seen examined the bedside. Respiratory status unchanged. Denies complaints of chest pain, cough, fever or chills, n/v/d, dsyuria. Review of Systems Review of Systems: All systems were reviewed and negative except indicated above Physical Exam Physical Exam: GENERAL: Alert and oriented x3. NAD, on 3L NC O2. HEENT: No pallor, no icterus. Pupils equal, round and reactive to light. Oral mucosa moist. NECK: No JVD, no neck masses. HEART: S1 and S2 heard. irregular rate and rhythm. No murmur, no gallop. RESPIRATORY SYSTEM: Normal AP diameter. No accessory muscle use. No wheezing, no crackles. ABDOMEN: Soft, bowel sounds present, nontender, no distention. CENTRAL NERVOUS SYSTEM: No facial droop. Speech is clear. Obeys simple commands. Moves extremities. EXTREMITIES: No edema, no erythema seen. Results & Data Results & Data ([facility]) Vital Signs (Past 12 Hours) Vital Signs Temp Pulse Pulse Pulse Resp BP Pulse Ox 07/14/22 11:57 36.3 C L 79 16 107/68 99 07/14/22 08:00 07/14/22 07:05 36.3 C L 85 19 118/75 100 07/14/22 03:00 36.3 C L 72 18 135/91 94 07/14/22 03:57 77 O2 Del Method O2 Flow Rate 07/14/22 11:57 Nasal Cannula 4 07/14/22 08:00 Oxymask 4 07/14/22 07:05 Oxymask 5 07/14/22 03:00 Oxymask 3 07/14/22 03:57 Laboratory Results Short CBC 07/14/22 Range/Units 06:47 WBC 18.65 H (4.8-10.8) K/ul Hgb 10.0 L (14.0-18.0) g/dl Hct 31.3 L (40.1-51.0) % Plt Count 180 (130-400) K/uL BMP 07/14/22 06:47 Sodium 137 Potassium 4.4 Chloride 91 L Carbon Dioxide 41 H* BUN 53 H Creatinine 1.33 Glucose 119 H Calcium 9.3 Diagnostic Findings reveiwed Medications Administered Current Inpatient Medications Acetaminophen (Acetaminophen 325 Mg Tab) 650 mg PO Q4H PRN PRN Reason: Pain or Fever Stop: 07/21/22 21:34 Last Admin: 06/21/22 22:00 Dose: 650 mg Albuterol (Albut/Ipratrop 3mg/0.5mg Neb 3 Ml Vial) 3 ml NEB Q6R PRN; Protocol PRN Reason: SOB/wheezin Stop: 07/30/22 12:59 Last Admin: 07/07/22 03:08 Dose: 3 ml Allopurinol (Allopurinol 100 Mg Tab) 100 mg PO QAM [facility] Stop: 07/22/22 08:59 Last Admin: 07/14/22 08:11 Dose: 100 mg Atorvastatin Calcium (Atorvastatin 40 Mg Tab) 40 mg PO HS [facility] Stop: 07/21/22 20:59 Last Admin: 07/13/22 20:12 Dose: 40 mg Benzonatate (Benzonatate 100 Mg Capsule) 200 mg PO TID PRN PRN Reason: Cough Stop: 07/21/22 20:25 Cetirizine HCl (Cetirizine Hcl 10 Mg Tablet) 5 mg PO QAM [facility] Stop: 07/22/22 08:59 Last Admin: 07/14/22 08:10 Dose: 5 mg Cyanocobalamin (Cyanocobalamin (B-12) 100 Mcg Tablet) 100 mcg PO DAILY [facility] Stop: 07/22/22 08:59 Last Admin: 07/14/22 08:11 Dose: 100 mcg Ethacrynic Acid (Ethacrynic Acid 25 Mg Tab) 25 mg PO QAM [facility] Stop: 08/10/22 11:29 Last Admin: 07/14/22 08:11 Dose: 25 mg Folic Acid (Folic Acid 1 Mg Tab) 1 mg PO QDL [facility] Stop: 07/22/22 11:29 Last Admin: 07/14/22 11:56 Dose: 1 mg Furosemide (Furosemide 40 Mg Tab) 40 mg PO QAM [facility] Stop: 08/07/22 08:59 Last Admin: 07/08/22 09:54 Dose: 40 mg Lorazepam (Lorazepam 0.5 Mg Tab) 0.5 mg PO Q8 PRN PRN Reason: Anxiety Stop: 08/12/22 14:22 Last Admin: 07/13/22 15:01 Dose: 0.5 mg Magnesium Oxide (Magnesium Oxide 400 Mg Tab) 400 mg PO BID@1100,2300 [facility] Stop: 07/26/22 10:59 Last Admin: 07/14/22 11:56 Dose: 400 mg Metoprolol Succinate (Metoprolol Succ 50mg Ext Rel Tab) 50 mg PO DAILY [facility] Stop: 08/12/22 06:14 Last Admin: 07/14/22 08:11 Dose: 50 mg Ondansetron HCl (Ondansetron Inj 2 Mg/Ml 2 Ml Vial) 4 mg IV Q6H PRN PRN Reason: Nausea Stop: 07/21/22 21:34 Pantoprazole Sodium (Pantoprazole 40 Mg Tab) 40 mg PO DAILY [facility] Stop: 07/22/22 08:59 Last Admin: 07/14/22 08:11 Dose: 40 mg Polyethylene Glycol (Polyethylene (Miralax) 17 Gm Pack) 17 gm PO DAILY PRN PRN Reason: Constipation Stop: 07/21/22 21:34 Last Admin: 07/06/22 11:28 Dose: 17 gm Prednisone (Prednisone 20 Mg Tab) 40 mg PO DAILY [facility] Stop: 07/30/22 09:14 Last Admin: 07/14/22 08:10 Dose: 40 mg Rivaroxaban (Rivaroxaban 15 Mg Tab) 15 mg PO QPM [facility] Stop: 08/04/22 20:59 Last Admin: 07/13/22 20:12 Dose: 15 mg Trimethoprim/Sulfamethoxazole (Sulfamethoxazole/Trimethoprim Ds 800/160mg Tab) 1 tab PO MoWeFr@0900 [facility] Stop: 08/07/22 12:59 Last Admin: 07/08/22 12:50 Dose: 1 tab Vitamin D (Cholecalciferol 1,000 Units 25 Mcg Tab) 2,000 units PO QDL [facility] Stop: 07/22/22 11:29 Last Admin: 07/14/22 11:56 Dose: 2,000 units (1) Anemia Anemia type: unspecified type Qualified Code(s): D64.9 - Anemia, unspecified
--- NOTE | 2022-07-14 18:49 | Nephrology Progress Note ---
Date of Service July 14, 2022 Assessment & Plan (1) Disorder of acid-base balance: Plan: chronic and severely elevated bicarbonate d/t his severe chronic hypercarbia and with recurrent issues w/ hyperkalemia not unexpected w/ acid base issues. oral and IV ethacrynic acid. YELENA on CKD -- CKD at baseline creatinine mid ones or better. -continue ethacrynic acid current dose for now rather than lasix d/t his alkalemia/hypercarbia; have d/w cardiology -would keep on ethacrynic acid unless bicarb consistently <40 -continue daily bmp ->>>keep 02 sats at 88-90% d/t hypercarbia will sign off pls call if ? Admission and Anticipated Discharge Date Admission Date: June 21, 2022 Subjective no interval events. no report of recurrent hempotysis. dyspneic w/ speaking/moving. Results & Data ([facility]) Vital Signs (Past 12 Hours) Vital Signs Temp Pulse Pulse Pulse Resp BP Pulse Ox 07/14/22 15:57 88 07/14/22 15:46 36.5 C 84 24 121/75 99 07/14/22 11:57 36.3 C L 79 16 107/68 99 07/14/22 08:00 07/14/22 07:05 36.3 C L 85 19 118/75 100 O2 Del Method O2 Flow Rate 07/14/22 15:57 07/14/22 15:46 Oxymask 4 07/14/22 11:57 Nasal Cannula 4 07/14/22 08:00 Oxymask 4 07/14/22 07:05 Oxymask 5
[2022-07-14] MEDS: RIVAROXABAN 15 MG TAB PO SCH (20:16)
[2022-07-14] MEDS: ATORVASTATIN 40 MG TAB PO SCH (20:16)
[2022-07-15 07:32] LABS: Basophils # (auto) 0.04 K/uL (0-0.2); Basophils % (auto) 0.2 %; Eosinophils # (auto) 0.03 K/uL (0-0.50); Eosinophils % (auto) 0.2 %; Hematocrit (blood only) 33.2 % (40.1-51.0); Hemoglobin 10.3 g/dl (14.0-18.0); Immature Granulocytes # (auto) 0.58 K/uL (0.00-0.02); Immature Granulocytes % (auto) 3.4 %; Lymphocytes # (auto) 0.62 K/uL (1.2-3.4); Lymphocytes % (auto) 3.7 %; Mean Corpuscular Hemoglobin 32.3 pg (25.0-34.0); Mean Corpuscular Volume 104.1 fL (80.0-100.0); Mean Platelet Volume 11.8 fL (9.4-12.4); Monocytes # (auto) 1.52 K/uL (0.24-0.82); Neutrophils # (auto) 14.05 K/uL (1.4-6.5); Neutrophils % (auto) 83.5 %; Platelet Count 177 K/uL (130-400); RDW Coefficient of Variation 22.6 % (11.5-14.5); RDW Standard Deviation 85.1 fL (36.4-46.3); Red Blood Count 3.19 M/uL (4.63-6.08); White Blood Count 16.84 K/ul (4.8-10.8)
[2022-07-15 07:51] LABS: Anisocytosis Present
[2022-07-15 08:14] LABS: BUN Creatinine Ratio 42.8 (10-20); Calcium 9.5 mg/dl (8.5-10.1); Creatinine Clr Calc Pharmacy 53.9 ml/min; Est GFR (African American) 58.4 ml/min; Est GFR (Non-African American) 50.4 ml/min; Phosphorus 3.8 mg/dl (2.5-4.9); Potassium 4.7 mmol/L (3.5-5.1)
[2022-07-15] MEDS: allopurinoL 100 MG TAB PO SCH (09:56)
[2022-07-15] MEDS: PANTOprazole 40 MG TAB PO SCH (09:57)
[2022-07-15] MEDS: predniSONE 20 MG TAB PO SCH (09:57)
[2022-07-15] MEDS: ETHACRYNIC ACID 25 MG TAB PO SCH (09:57)
[2022-07-15] MEDS: CHOLECALCIFEROL 1,000 UNITS 25 MCG TAB PO SCH (09:57)
[2022-07-15] MEDS: FOLIC ACID 1 MG TAB PO SCH (09:57)
[2022-07-15] MEDS: CYANOCOBALAMIN (B-12) 100 MCG TABLET PO SCH (09:57)
[2022-07-15] MEDS: METOPROLOL SUCC 50MG EXT REL TAB PO SCH (09:57)
[2022-07-15] MEDS: MAGNESIUM OXIDE 400 MG TAB PO SCH (09:57)
[2022-07-15] MEDS: CETIRIZINE HCL 10 MG TABLET PO SCH (09:58)
--- NOTE | 2022-07-15 10:57 | Cardiology Progress Note ---
Date of Service July 15, 2022 Assessment & Plan (1) Chronic respiratory failure with hypoxia and hypercapnia: (2) Chronic systolic heart failure: (3) ILD (interstitial lung disease): Plan Continue oral diuretic therapy. Maintain even to negative fluid balance. Follow fluid balance, daily weight, GFR, and electrolytes. Creatinine trending downward. Maintain SaO2 >88%. BiPAP nightly. Telemetry reveals atrial fibrillation with controlled ventricular response. Continue rate control strategy and cautious anticoagulation with rivaroxaban (transient hemoptysis noted earlier during hospitalization). Admission and Anticipated Discharge Date Admission Date: June 21, 2022 Subjective Patient seen examined the bedside. No changes overnight. Telemetry reveals atrial fibrillation with PVCs. Reports feeling weak today. No chest discomfort. Oxygen saturations unchanged. Scheduled for transfer to rehab. Review of Systems Review of Systems: All systems reviewed & are unremarkable except as noted in Subjective Physical Exam Constitutional: well nourished and + ill appearing; no acute distress Respiratory: no retractions and does not use accessory muscles Auscultation: + crackles (Bilateral); no rhonchi and no wheezes Cardiovascular: Rate/Rhythm: + irregularly irregular Heart Sounds: normal S1 and normal S2; no murmur Vessels: radial pulses present; no JVD and no carotid bruit Extremities: no edema Gastrointestinal (Abdomen): Inspection/Auscultation: normal bowel sounds; abdomen not distended Percussion/Palpation: abdomen soft; abdomen nontender, no guarding and abdomen not rigid Neurologic: CN's II-XI intact bilaterally and moves all extremities; no focal motor deficits Psychiatric: A+Ox3, euthymic affect Results & Data ([facility]) Vital Signs (Past 12 Hours) Vital Signs Temp Pulse Pulse Resp BP Pulse Ox O2 Del Method 07/15/22 06:59 36.4 C L 71 18 129/77 98 Oxymask 07/15/22 03:58 36.4 C L 82 16 114/73 100 Oxymask 07/15/22 01:44 78 O2 Flow Rate 07/15/22 06:59 3 07/15/22 03:58 3 07/15/22 01:44
--- NOTE | 2022-07-15 14:40 | Discharge Summary ---
Date of Service July 15, 2022 Admission Exam Per Admitting Provider General Appearance:WD/WN, vitals as above, ill appearing, pale, conversational dyspnea Head: normocephalic, atraumatic Eyes:normal inspection, PERRL, conjunctivae normal, anicteric sclerae ENT: external ear and nose normal, oropharynx normal Neck: normal visual inspection, trachea midline, no thyromegaly Respiratory:increased respiratory effort, bibasilar rales, no wheeze, rales or rhonchi. + accessory muscle use Cardiovascular: tachycardic rate, regular rhythm, no murmur, normal peripheral pulses, 2+ BLE edema. Vessels: + JVD Chest: normal inspection of chest Abdomen/GI: normal bowel sounds, soft, nontender, no hepatosplenomegaly Extremities/Musculoskeletal: no cyanosis or clubbing, extremities motor strength 5/5 Neurologic: PERRL, EOMI, accommodation nl, no face palsy, no dysarthria, CN's II-XI intact bilaterally and moves all extremities Psychiatric:A+Ox3, euthymic affect Skin: no rashes, normal color, warm/dry Principal Diagnosis acute on chronic hypercapnic, hypoxic respiratory failure Discharge Exam GENERAL: Alert and oriented x3. NAD, on 3L NC O2. HEENT: No pallor, no icterus. Pupils equal, round and reactive to light. Oral mucosa moist. NECK: No JVD, no neck masses. HEART: S1 and S2 heard. irregular rate and rhythm. No murmur, no gallop. RESPIRATORY SYSTEM: Normal AP diameter. No accessory muscle use. No wheezing, no crackles. ABDOMEN: Soft, bowel sounds present, nontender, no distention. CENTRAL NERVOUS SYSTEM: No facial droop. Speech is clear. Obeys simple commands. Moves extremities. EXTREMITIES: No edema, no erythema seen. Discharge Data Allergies Allergy/AdvReac Type Severity Reaction Status Date / Time diphtheria toxoid,fluid Allergy Severe CONVULSIONS--HORSE Verified 06/21/22 19:29 SERUM BASE tetanus toxoid, adsorbed Allergy Severe CONVULSIONS--HORSE Verified 06/21/22 19:29 SERUM BASE Consultations 06/21/22 18:31 ED Decision to Admit Stat 06/21/22 21:35 Consult Cardiology Routine 06/25/22 07:47 Consult Pulmonology Routine 06/28/22 14:16 Consult Assembler Routine 07/01/22 08:17 Consult Nephrology Routine 07/10/22 16:29 Consult Nephrology Routine Procedures Performed Operation Date: 06/28/22 08:30 Actual Procedures p Bronchoscopy (Bilateral) - iTtus Orozco MD Ordered Studies 06/25/22 07:45 CT chest diagnostic wo con Routine 06/28/22 13:46 CT head/brain wo con Urgent 06/29/22 08:17 CT head/brain wo con Routine 07/01/22 08:15 US Renal Bladder [US renal/blad retro comp] Routine Hospital Course (1) Acute on chronic respiratory failure with hypoxia: Initially hypoxic 2/2 acute heart failure with reduced ejection fraction. He then became hypercapnic and required BIPAP in the ICU. Tachypnea re-emerged on 07/06, increased fluid on repeat CXR and no evidence of hypercapnia on repeat ABG. Likely worsening fluid overload after lasix was held in setting of YELENA. Additional risk factors for fluid overload include ongoing atrial fibrillation with low ejection fraction, new prednisone therapy that may cause additional fluid retention, and low activity level causing inability to mobilize fluid naturally. Restarted Lasix with improvement, however, he continues to have desaturation episodes with minimal movement. Diuresis being managed per Nephro. 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 He developed progressive hypoxic respiratory failure with diffuse pulmonary infiltrates and bronchoscopy was performed which revealed BAL findings consistent with alveolar hemorrhage. Cytology was negative. He was placed on steroids and Bactrim for infectious prophylaxis. Regarding work-up for his pulmonary hemorrhage, MIRANDA and ANCA were both negative. Etiology was felt to be bleeding related to chemotherapy and ongoing anticoagulation. xarelto was held which is now resumed. Pneumocystis Soheila pneumonia PCR was negative and Fungitell was negative. Notably he has completed a course of antibiotics for possible pneumonia. He has not developed any new fevers or worsening cough. Pt had again new episode of acute shortness of breath and increased work of breathing that came on suddenly on 07/10, needed BIPAP/acetazolamide for support. 07/10 ABG w/o acute on chronic hypercarbia. He is a confirmed full code per family and patient who are all in the room together. Low threshold for pulm reconsult if w/ worsening repiratory status. C/w SpO2 88-90%, wean down O2 as fidelina. Pt counselled to use BPAP as tolerated, used only 1 hour last night - refusing during the day - added small prn ativan for BiPAP use to try and increase compliance. Leucocytosis likely d/t steroid use. - patient stable for discharge to [facility] with follow up for Cardiology, pulmonology, Nephrology (2) Acute decompensated heart failure: Plan as above. (3) Acute on chronic renal failure: Creatinine is stable on am labs today. Cont daily BMP. (4) ILD (interstitial lung disease): Prednisone taper with bactrim prophylaxis per pulmonology. With ongoing hyperkalemia, this was held. Per pulmonology digital solution architect this is not an issue. Cont to hold in setting of renal compromise. As this improves we may have less of an issue using Bactrim. Alternative prophylaxis includes dapsone. G6Pd def request is a reference lab and is pending. - will need steroid taper decreasing 10mg every week - 40mg until 07/17-->start 30mg daily 07/18 for 1 wee--> 20mg 1 week --> 10mg 1 week --> 5mg 1 week if needed (5) Lung cancer: h/o lung cancer with metastatic disease. Per oncology (6) Paroxysmal atrial fibrillation: persistent afib rhythm on telemetry. Rate is controlled with metoprolol. Xarelto resumed, Card on board. (7) Anemia: chronic, multifactorial. Notably H/H is improved with 10.1/32.6 up from 9.6/31.6 and no further hemoptysis. He is not thought to be actively bleeding at this time. Cont to monitor. (8) DVT prophylaxis: Xarelto Full Code Dispo-cont PCU monitoring. Total Time Total Time Spent Total Time Spent (In Minutes): 35 Total Time Includes: Examination of the Patient, Discharge Planning, Medication Reconciliation and Communication With Other Providers Discharge Plan Discharge Items Patient Disposition: Transfer [facility] Reason For Visit: DECOMPENSATED HEART FAILURE, ACUTE CHRONIC HYPOXIA Discharge Diagnosis: acute on chronic hypoxic hypercapneic respiratory failure Activity: As commented below Activity Comment: as per SNF Non-emergency contact: Primary Care Provider, Cartridge Assembling Machine Adjuster, Organic Section Technical Lead and Pul manager automotive Call non-emergency contact if: you have any medication questions and your symptoms worsen Follow-up/Referrals: Titus Orozco MD [Physician] - 07/18/22 10:45 am Mauro Parekh MD [Physician] - Chandrakant Herron MD [Primary Care Provider] - Diet: Carb Consistent or DM2 and Heart Healthy Addtl Attending Provider Instructions: You were admitted for worsening of your respiratory status due to your underlying lung disease and cancer. You had a long and complicated hospitalization with pulmonary, cardiology, nephrology following and managing your volume status with IV lasix and then water pill. You were also requiring oxygen all of the time. You will need to continue medications for water pill as well as oxygen supplementation continuously. You are stable for discharge to rehab. Pending Studies at Discharge: No Stand-Alone Forms: My [facility] Skilled Items Patient informed of condition?: Yes DNR: No Discharge Level of Care: Skilled Communicable Disease: No Discharge Prognosis: Stable Lines: None Urinary Catheter: Yes Medications and DC Order Prescriptions: New sulfamethoxazole-trimethoprim [Bactrim DS] 800-160 mg Tablet 1 tab PO [id number] Qty: 30 0RF ipratropium-albuterol 0.5 mg-3 mg(2.5 mg base)/3 mL Solution For Nebulization 3 ml NEB Q6R PRN (Reason: shortness of breath or wheezing) Qty: 180 0RF lorazepam 0.5 mg Tablet 0.5 mg PO Q8 PRN (Reason: anxiety) Qty: 30 0RF ethacrynic acid [Edecrin] 25 mg Tablet 25 mg PO QAM Qty: 30 0RF prednisone 20 mg Tablet 40 mg PO DAILY Qty: 30 0RF Continued pantoprazole 20 mg tablet,delayed release (DR/EC) 20 mg PO DAILY Qty: 90 3RF folic acid 1 mg tablet 1 mg PO QDL cetirizine [Zyrtec] 10 mg tablet 5 mg PO QAM atorvastatin 40 mg Tablet 40 mg PO HS cholecalciferol (vitamin D3) [Vitamin D3] 25 mcg (1,000 unit) Capsule 2,000 unit PO QDL Xarelto 15 mg Tablet 15 mg PO HS Qty: 30 0RF cyanocobalamin (vitamin B-12) [Vitamin B-12] 100 mcg Tablet 100 mcg PO DAILY allopurinol 100 mg tablet 100 mg PO QAM magnesium oxide 400 mg (241.3 mg magnesium) Tablet 400 mg PO QAM Qty: 30 0RF benzonatate 200 mg capsule 200 mg PO UD PRN (Reason: Cough) albuterol sulfate 90 mcg/actuation HFA aerosol inhaler 2 puff INHALATION Q4 PRN (Reason: Wheezing) Changed metoprolol succinate 50 mg tablet extended release 24 hr 50 mg PO DAILY Qty: 30 0RF Discontinued furosemide 40 mg tablet 40 mg PO QAM Qty: 0 0RF ondansetron HCl 8 mg tablet 8 mg PO Q8H PRN (Reason: Nausea) prochlorperazine maleate 10 mg tablet 10 mg PO Q6H PRN (Reason: Nausea) Discharge Orders: Discharge Order (Routine); Ordered 07/15/22 Ordered By: Camron Crandall Admission Data Admit Date/Time: 06/21/22 19:13 Attending Provider: Camron Crandall Admit Provider: Shon Bean Primary Care Provider: Chandrakant Herron Other Providers: Marshal Johnson ; Mauro Parekh ; Mary Pineda ; Titus Orozco ; [facility] Other Interventions: Discharge Summary Assessment (RN) Last Done: 07/15/22 13:03
[2022-07-18] MEDS ORDERED: predniSONE 10 MG TABLET PO SCH (09:00)
--- NOTE | 2022-07-21 11:52 | Consultation Report ---
NEPHROLOGY CONSULTATION NOTE REASON FOR CONSULTATION: Acute renal failure with hyperkalemia. HISTORY OF PRESENT ILLNESS: The patient is a 71-year-old male with lung cancer with metastasis to liver on home oxygen, receiving chemo. He has had significant complications of chemo of various type and the last chemo was 06/03/2022. The patient was recently in the prolonged hospital stay from 06/21/2022 and discharged on 07/15/2022 to [facility]. During the hospitalization, he was treated for acute on chronic respiratory failure with hypoxia with severe chronic hypercapnia. He also had a reduced ejection fraction. He has had multiple arterial blood gases and they show also the same thing that he has severe hypercapnia and compensatory very elevated bicarbonate level. During that hospitalization, he was diagnosed with squamous cell carcinoma. The patient was brought to the hospital after he became more short of breath at the [facility] and was hypoxic with oxygen saturation down to 70%. The patient is very restless, confused and quite short of breath. ALLERGIES: DIPHTHERIA TOXOID, TETANUS TOXOID. PAST MEDICAL AND SURGICAL HISTORY: Includes lung cancer with metastasis to the liver, severe COPD/interstitial lung disease with severe respiratory failure with chronic severe hypercarbia on home oxygen, congestive heart failure with an ejection fraction of 35%, history of cardioversion, bilateral carpal tunnel release, cataract surgery, colonoscopy, EGD, history of hematoma evacuation in the left lower extremity, left shoulder surgery, tonsillectomy, status post ICD placement and pacemaker, appendicectomy. FAMILY HISTORY: Negative for renal disease. SOCIAL HISTORY: Former smoker, quit at the age of 53. No alcohol, no drugs. Currently coming from [facility]. He uses oxygen at home. REVIEW OF SYSTEMS: Unable to obtain as the patient is very restless, confused and short of breath. MEDICATIONS AT HOME: Was reviewed in detail and is as per the reconciliation list and the H and P. PHYSICAL EXAMINATION: GENERAL: Elderly white male who appears to be restless, confused and is in respiratory distress. HEENT: Mucous membrane is moist. NECK: Supple. Jugular venous distention not present. VITAL SIGNS: Blood pressure is 112/82, pulse rate 88, temperature 36.4, 94% on 5 liters oxygen mask. CHEST: Bilateral basal crackles and diminished breath sounds. CARDIOVASCULAR: S1 and S2, regular. ABDOMEN: Soft, nontender. EXTREMITIES: No edema. LABORATORY TEST: Blood work from this morning shows sodium 137, potassium 6.2, bicarbonate 38, chloride 93, BUN 83, creatinine 1.85, magnesium 2.1, hemoglobin 9.8, WBC count 12,000, platelet count 144. Chest x-ray shows no significant change in the reticulonodular interstitial thickening, hazy bilateral airspace opacities and bilateral pleural effusion. ASSESSMENT AND PLAN: A 71-year-old male with very advanced extensive lung disease with obstructive and restrictive pattern as well as recently diagnosed lung cancer with liver mets now admitted with increasing shortness of breath. He was found to have hyperkalemia with a potassium of 6.2 and slightly elevated creatinine of 1.85. 1. Acute renal failure: His creatinine is hard to pinpoint. He has had many different episodes of acute renal failure. In fact, during his recent hospitalization also he had acute kidney injury with a peak creatinine of 2.22, but by the time he was discharged, it was down to 1.38. This is not surprising as the patient has chronic hypoxia with chronic hypercarbia, which means he is extremely susceptible to ischemic acute tubular necrosis, which he will be getting quite often. No further workup is needed for the acute renal failure as this is most likely due to acute tubular ischemia. I would, for basic purpose, do a urinalysis. 2. Hyperkalemia, this is in the setting of multiple medications, which makes it worse as well as inadequate diuresis. I would give him Lasix 80 mg IV x1. He has already received Kayexalate and calcium gluconate and dextrose insulin and a lot of situations like this hyperkalemia also signifies inadequate diuresis. He has had multiple ABG, which shows that even on a good day his pCO2 is 75+. At such a high level of baseline hypercapnia, he should have an elevated serum bicarbonate, which is totally physiological compensation and his lifeline. On my exam, I believe the patient is volume overloaded/congestive heart failure and does not need any IV fluid. Thank you very much for the consult. Job ID: [id number] [facility]ITALBlanca
== END 2022-07-15 15:45 | DRG 166 ==
LOC: ED 15:19 → 2S 19:13 → SUATTDRO 19:13 → 2S 21:09 → 1E 06-28 13:38 → 2S 06-29 14:06

== ENCOUNTER 2022-07-20 15:33 | Inpatient (IN) ==
[2022-07-20 16:48] LABS: Albumin Level 3.8 gm/dl (3.4-5.0); BUN Creatinine Ratio 40.5 (10-20); Bilirubin,Total 0.8 mg/dl (0.2-1.0); Calcium 9.8 mg/dl (8.5-10.1); Creatinine Clr Calc Pharmacy 43.5 ml/min; Est GFR (Non-African American) 35.3 ml/min; Globulin 3.9 gm/dl (2.5-4.0); Magnesium 2.1 mg/dl (1.7-2.4); Phosphorus 4.1 mg/dl (2.5-4.9); Potassium 5.4 mmol/L (3.5-5.1); Total Protein 7.7 gm/dl (6.0-8.3); Troponin I High Sensitivity 48.2 pg/ml (0-20)
[2022-07-20 17:15] LABS: Influenza A virus by PCR Negative (Neg); Influenza B virus by PCR Negative (Neg); RSV by PCR Negative (Neg); SARS CoV2 RNA(COVID-19) InHosp NEGATIVE (Negative)
[2022-07-20 17:24] LABS: Hematocrit (blood only) 33.6 % (40.1-51.0); Hemoglobin 10.4 g/dl (14.0-18.0); Mean Corpuscular Hemoglobin 33.5 pg (25.0-34.0); Mean Corpuscular Volume 108.4 fL (80.0-100.0); Mean Platelet Volume 12.5 fL (9.4-12.4); Platelet Count 162 K/uL (130-400); RDW Coefficient of Variation 23.3 % (11.5-14.5); RDW Standard Deviation 91.5 fL (36.4-46.3); White Blood Count 12.79 K/ul (4.8-10.8)
[2022-07-20 17:30] LABS: Base Excess VBG 16.9 mEq/L; HCO3 VBG 48 mmol/L; Oxygen Saturation VBG < 60.0 %; PCO2 VBG 93 mmHg (38-50); PO2 VBG 29 mmHg; pH VBG 7.32 (7.36-7.41)
--- NOTE | 2022-07-20 17:42 | XRay Report ---
XR chest 1V portable HISTORY: Atypical Chest Pain COMPARISON: Chest 07/10/2022. FINDINGS: No pneumothorax. No significant change in the reticulonodular interstitial thickening, hazy bilateral airspace opacities, and trace bilateral pleural effusions. There are low lung volumes. The heart remains mildly enlarged. There is a left-sided pacemaker/defibrillator again noted. Advanced d egenerative changes within the shoulders. IMPRESSION: No significant change in the reticulonodular interstitial thickening, hazy bilateral airspace opaciti es, and trace bilateral pleural effusions. ACT 112: Negative or not required by law. Electronically signed by: Reza Shanks M.D. 07/20/2022 5:41 PM
[2022-07-20 17:49] LABS: Basophilic Stippling 1+; Basophils # (auto) 0.01 K/uL (0-0.2); Basophils % (auto) 0.1 %; Eosinophils # (auto) 0.03 K/uL (0-0.50); Eosinophils % (auto) 0.2 %; Immature Granulocytes # (auto) 0.15 K/uL (0.00-0.02); Immature Granulocytes % (auto) 1.2 %; Lymphocytes % (auto) 1.6 %; Monocytes # (auto) 0.31 K/uL (0.24-0.82); Monocytes % (auto) 2.4 %; Neutrophils # (auto) 12.09 K/uL (1.4-6.5); Neutrophils % (auto) 94.5 %; Polychromasia 1+; Stomatocytes 1+
[2022-07-20] MEDS ORDERED: methylPREDNISolone 125 MG/2 ML VIAL IV STA (18:06)
[2022-07-20] MEDS ORDERED: ALBUT/IPRATROP 3MG/0.5MG NEB 3 ML VIAL NEB STA (18:06)
[2022-07-20] MEDS ORDERED: DOCUSATE SODIUM/SENNA 50/8.6MG TAB PO PRN (23:04)
[2022-07-20] MEDS ORDERED: LEVALBUTEROL 1.25MG/0.5ML NEB INH PRN (23:04)
[2022-07-20] MEDS ORDERED: SODIUM POLYSTYRENE SULFONATE 15G/60ML SUSP PO STA (23:04)
[2022-07-20] MEDS ORDERED: guaiFENesin/CODEINE 100MG/10MG 5ML UDC PO PRN (23:04)
[2022-07-20] MEDS ORDERED: IPRATROPIUM BROMIDE NEB SOLN 0.02% 2.5 ML VIAL INH PRN (23:04)
[2022-07-20] MEDS ORDERED: ALBUTEROL HFA 8 GM INHALER INH PRN (23:04)
[2022-07-20] MEDS ORDERED: NITROGLYCERIN SL 0.4 MG/TAB TAB SL PRN (23:04)
[2022-07-20] MEDS ORDERED: XOPENEX/ATROVENT 1.25mg/0.5MG NEB COMBO NEB PRN (23:04)
[2022-07-20] MEDS ORDERED: BENZONATATE 100 MG CAPSULE PO PRN (23:04)
[2022-07-20] MEDS ORDERED: ACETAMINOPHEN 325 MG TAB PO PRN (23:04)
--- NOTE | 2022-07-20 23:27 | Emergency Department Note ---
Impression & Plan Acute on chronic respiratory failure with hypoxia and hypercapnia, CHF (congestive heart failure), COPD (chronic obstructive pulmonary disease), Elevated troponin, Paroxysmal atrial fibrillation ED Provider Note NAME: CRISTOBAL OVIEDO JR AGE: 71 SEX: M ARRIVES VIA: Ambulance INFORMANT: Patient ED PROVIDER(S): Hao Alcazar MD CHIEF COMPLAINT: SOB, referred PLAN: Disposition: Admit MEDICAL DECISION MAKING: The patient is a pleasant 71-year-old gentleman with a past medical history of chronic respiratory failure with hypoxia and hypercapnia recent admission from 06/21-07/15 for acute on chronic respiratory failure in setting of history of interstitial lung disease/COPD with 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 There is reported the patient had increased cough and congestion over the past several days. The 90 fevers, GI or symptoms. Records the patient does have RENATO and should be on CPAP at night but does not tolerate this and so was noncompliant. On arrival the patient is chronically ill-appearing, fatigued and mildly dyspneic but no acute distress, afebrile with RR 30s and otherwise with stable vital signs. He appears euvolemic. Lungs with scattered wheezes and diminished at the bases. EKG without overt acute ischemia. Chest x-ray with no change in particular nodular interstitial thickening and hazy by lateral airspace opacities with trace bilateral pleural effusions. WBC 12.7, decreased from prior. H/H similar to prior. Platelets within normal limits. Chemistry with bicarb of 43 consistent with the patient's chronic hypercapnic respiratory failure. Creatinine 1.85, increased from discharge value though on higher end of prior range of values. LFTs without significant abnormality. Lactic acid 1.1, within normal limits. Initial high-sensitivity troponin 48 with delta 2-hour high-sensitivity troponin 41, nonspecific. BNP 173 decreased from 400s on last admission. Lipase is not elevated. Procalcit onin is not significantly elevated. Covid-19 PCR negative. Influenza and RSV PCR negative. VBG G does demonstrate acute on chronic hypercapnia with PCO2 of 93 with pH of 7.3. Thus, suspect the patient's acute respiratory failure today is primarily driven by COPD flare in the setting of the patient's noncompliance with BiPAP. He was treated with steroids and DuoNeb and did have improvement in symptoms. The patient family bedside agree with plan for admission for further management of his symptoms. Case was discussed with Dr. Bean, [facility] hospitalist, who will evaluate the patient for admission. Triage Nursing notes reviewed and agree them. Prior medical records reviewed Vital Signs: reviewed and remarkable for tachypnea. Differential diagnosis: Reactive airway disease, pneumonia, pneumothorax, COPD, CHF, infections, cardiac ischemia, pulmonary embolism, musculoskeletal, gastrointestinal, as well as oth er pathologies. ER treatment provided: See below. Diagnostics interpreted by me: ECG: Atrial fibrillation with PVCs, 91 bpm, no overt ST elevation or depression, QTC 396, QRS 92. Cardiac Monitoring: An order for continuous cardiac monitoring was placed and demonstrated Atrial fibrillation with PVCs, 91 bpm. Laboratory studies: See below Imaging studies: See below Consultation(s): Case was discussed with Dr. Bean, [facility] hospitalist, who will evaluate the patient for admission. 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 There is reported the patient had increased cough and congestion over the past several days. The 90 fevers, GI or symptoms. Records the patient does have RENATO and should be on CPAP at night but does not tolerate this and so was noncompliant. ROS: See above HPI for pertinent positives & negatives. A total of 10 systems reviewed and were otherwise negative. VITALS:See Below PHYSICAL EXAMINATION: GENERAL: Awake, alert, acute on chronically ill-appearing, in no distress, BMI 27. HENT: Normocephalic, atraumatic. Oropharynx unremarkable. EYES: Normal conjunctiva. Sclera non-icteric. NECK: Supple. No nuchal rigidity. FROM. No JVD. RESPIRATORY: Scattered wheezes and diminished at the bases. Mildly dyspneic CARDIAC: Regular rate, normal rhythm. Extremities warm and well perfused. Pulses equal. ABDOMEN: Soft, non-distended. No tenderness to palpation. No rebound or guarding. No masses. RECTAL: Deferred. MUSCULOSKELETAL: Chest examination reveals no tenderness. The back is symmetrical on inspection without obvious abnormality. There is no CVA tenderness to palpation. No joint edema. LOWER EXTREMITIES: Calves are equal size bilaterally and non-tender. No edema. No discoloration. NEURO: Normal sensorium. No sensory or motor deficits noted. SKIN: No rash or jaundice noted. ED COURSE: Critical Care: I have personally spent greater than 35 minutes of critical care time in the direct management of this patient. This includes bedside care, interpretation of diagnostic studies, and testing, discussion with consultants, patient, and family members, and other required patient management activities. This 35 minutes is in excess of all separately billable procedures. Hao Alcazar MD Past Med/Surg History Medical History Acute GI bleeding Atrial fibrillation dx 2016 - follows w/ Dr. Trejo Chronic systolic heart failure CKD (chronic kidney disease), stage III Congestive heart failure Deep vein thrombosis RLE - 2016 dx while hospitalized w/ pneumonia Duodenal ulcer Hearing deficit [facility] Hematoma of left lower extremity Osteoarthritis Pneumonia Pulmonary embolism 2016 - dx while hospitalized w/ pneumonia - on xarelto Surgical History History of appendectomy History of cardiac catheterization 2015 - [place] - no stents History of cardioversion 11/08/2016 History of carpal tunnel release of both wrists History of cataract surgery History of colonoscopy History of esophagogastroduodenoscopy (EGD) History of evacuation of hematoma LLE History of shoulder surgery Left 2004 History of tonsillectomy Presence of combination internal cardiac defibrillator (ICD) and pacemaker placed 2016 - [employer] - last checked 1 year ago - follows w/ dr. yeh Family History Mother Diabetes Grandfather (Paternal) No problems noted. Father Lymphoma Grandfather (Maternal) Myocardial infarction Other No family history of adverse response to anesthesia Denies family history of Ovarian cancer Prostate cancer Heart disease Breast cancer Colorectal cancer Social History Smoking Status: Former smoker Tobacco Type: Cigarettes Age Quit Using Tobacco: 53; Cigarettes Per Day: 1 pack a day; Second Hand Exposure: No; Do You Dip or Chew Tobacco: No; Tobacco Cessation Education Requested by Patient: No Hx Alcohol Use: No Hx Substance Use: No Preferred Language: Italian Communication Ability: Effective Visual Impairment: Limited Hearing Ability: Use of Hearing Aid [employer]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[employer]r Required: No Beliefs That Will Affect Care: None marital status: Current Living Situation: Rehab Current Living Situation Comment: [facility] current occupational status: retired 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 How many Children do You have: 0 Other Information That Helps Us Care for You: No Feels Safe at Home: Yes Safety Concerns: Feels Safe At This Time Childhood Exposure to Second-Hand Smoke: Yes (dad did ) caffeine: Yes (cup of coffee in morning ) Dental Care, Regularly: No Physical Activity Frequency: Does not Exercise Seatbelt Use: always Sunscreen Use: No (doesn't go out in sun ) Assistive Devices: Cane, Glasses, Hearing Aid - Bilateral and Oxygen - Continuous Allergies Allergies Allergy/AdvReac Type Severity Reaction Status Date / Time diphtheria toxoid,fluid Allergy Severe CONVULSIONS--HORSE Verified 07/20/22 21:22 SERUM BASE tetanus toxoid, adsorbed Allergy Severe CONVULSIONS--HORSE Verified 07/20/22 21:22 SERUM BASE Home Meds Home Medications Medication Instructions Recorded Confirmed acetaminophen 325 mg tablet 650 mg PO Q4 PRN Pain 07/20/22 07/20/22 (Tylenol) albuterol sulfate 90 mcg/actuation 1 inh inhalation Q4 PRN Wheezing 07/20/22 07/20/22 aerosol inhaler (Proventil HFA) allopurinol 100 mg tablet 100 mg PO QAM 07/20/22 07/20/22 atorvastatin 40 mg tablet 40 mg PO HS 07/20/22 07/20/22 benzonatate 100 mg capsule 200 mg PO TID PRN Cough 07/20/22 07/20/22 cholecalciferol (vitamin D3) 50 50 mcg PO DAILY 07/20/22 07/20/22 mcg (2,000 unit) tablet (Vitamin D3) cyanocobalamin (vitamin B-12) 1,000 mcg PO DAILY 07/20/22 07/20/22 1,000 mcg tablet docusate sodium 100 mg tablet 100 mg PO BID 07/20/22 07/20/22 ethacrynic acid 25 mg tablet 25 mg PO DAILY 07/20/22 07/20/22 (Edecrin) folic acid 1 mg tablet 1 mg PO DAILY 07/20/22 07/20/22 ipratropium 0.5 mg-albuterol 3 mg 3 ml inhalation Q6H PRN Shortness 07/20/22 07/20/22 (2.5 mg base)/3 mL nebulization Of Breath soln loratadine 10 mg tablet 10 mg PO DAILY 07/20/22 07/20/22 lorazepam 0.5 mg tablet 0.5 mg PO Q8 PRN Anxiety 07/20/22 07/20/22 magnesium oxide 400 mg (241.3 mg 400 mg PO DAILY 07/20/22 07/20/22 magnesium) tablet metoprolol succinate 50 mg 50 mg PO DAILY 07/20/22 07/20/22 tablet,extended release 24 hr ondansetron HCl 4 mg tablet 4 mg PO Q4 PRN Nausea 07/20/22 07/20/22 pantoprazole 20 mg tablet,delayed 20 mg PO QAM 07/20/22 07/20/22 release polyethylene glycol 3350 17 gram 17 g PO DAILY PRN Constipation 07/20/22 07/20/22 oral powder packet (Miralax) prednisone 10 mg tablet 30 mg PO .DAILY UD 07/20/22 07/20/22 prednisone 20 mg tablet 20 mg PO .DAILY UD 07/20/22 07/20/22 rivaroxaban 15 mg tablet (Xarelto) 15 mg PO HS 07/20/22 07/20/22 sennosides 8.6 mg-docusate sodium 1 tab-cap PO DAILY PRN Constipation 07/20/22 07/20/22 50 mg tablet (Senna-S) sulfamethoxazole 800 1 tab PO MOWEFR 07/20/22 07/20/22 mg-trimethoprim 160 mg tablet Results & Data (ED) Vital Signs Vital Signs - 24 hr 07/20/22 15:43 07/20/22 15:49 07/20/22 15:49 Temperature 36.5 C Temperature Source Oral Pulse Rate 87 Pulse Rate [Apical] Pulse Rhythm Pulse Rhythm [Apical] Pulse Strength [Apical] Respiratory Rate 30 H Respiratory Effort / Characteristics Spontaneous Respiratory Depth Respiratory Pattern Blood Pressure 119/66 Blood Pressure [Left Arm] Blood Pressure Mean 83 Blood Pressure Mean [Left Arm] Blood Pressure Position Lying Blood Pressure Position [Left Arm] Pulse Oximetry 100 Oxygen Delivery Method Nasal Cannula Nasal Cannula Nasal Cannula Oxygen Flow Rate 4 4 4 Sepsis Recent Fever Within 48 Hours No Sepsis New/Unexplained Change in Mental Status No Sepsis Action Taken by Nursing No Action Required 07/20/22 16:05 07/20/22 17:21 07/20/22 19:00 Temperature Temperature Source Pulse Rate 69 Pulse Rate [Apical] 76 78 Pulse Rhythm Irregular Pulse Rhythm [Apical] Regular Regular Pulse Strength [Apical] Normal Normal Respiratory Rate 30 H 28 H 24 Respiratory Effort / Characteristics Labored Labored Respiratory Depth Shallow Shallow Respiratory Pattern Tachypnea Tachypnea Blood Pressure Blood Pressure [Left Arm] 105/78 106/68 Blood Pressure Mean Blood Pressure Mean [Left Arm] 87 80 Blood Pressure Position Blood Pressure Position [Left Arm] Sitting Pulse Oximetry 99 100 100 Oxygen Delivery Method Room Air Nasal Cannula Aerosol Mask Oxygen Flow Rate 4 4 Sepsis Recent Fever Within 48 Hours Sepsis New/Unexplained Change in Mental Status Sepsis Action Taken by Nursing 07/20/22 21:00 Temperature Temperature Source Pulse Rate Pulse Rate [Apical] 75 Pulse Rhythm Pulse Rhythm [Apical] Regular Pulse Strength [Apical] Normal Respiratory Rate 26 H Respiratory Effort / Characteristics Labored Respiratory Depth Shallow Respiratory Pattern Tachypnea Blood Pressure Blood Pressure [Left Arm] 114/60 Blood Pressure Mean Blood Pressure Mean [Left Arm] 78 Blood Pressure Position Blood Pressure Position [Left Arm] Lying Pulse Oximetry 100 Oxygen Delivery Method Aerosol Mask Oxygen Flow Rate 4 Sepsis Recent Fever Within 48 Hours Sepsis New/Unexplained Change in Mental Status Sepsis Action Taken by Nursing Laboratory Data Attestation: I reviewed the patient's lab results. Result diagrams: 07/20/22 15:45 07/20/22 15:45 Lab Results 07/20/22 07/20/22 07/20/22 Range/Units 15:45 15:45 15:45 WBC 12.79 H (4.8-10.8) K/ul RBC 3.10 L (4.63-6.08) M/uL Hgb 10.4 L (14.0-18.0) g/dl Hct 33.6 L (40.1-51.0) % MCV 108.4 H (80.0-100.0) fL MCH 33.5 (25.0-34.0) pg MCHC 31.0 L (32.0-36.0) g/dL RDW Std Deviation 91.5 H (36.4-46.3) fL RDW Coeff of Yogi 23.3 H (11.5-14.5) % Plt Count 162 (130-400) K/uL MPV 12.5 H (9.4-12.4) fL Immature Gran % (Auto) 1.2 % Neut % (Auto) 94.5 % Lymph % (Auto) 1.6 % Dougherty % (Auto) 2.4 % Eos % (Auto) 0.2 % Baso % (Auto) 0.1 % Neut # (Auto) 12.09 H (1.4-6.5) K/uL Lymph # (Auto) 0.20 L (1.2-3.4) K/uL Dougherty # (Auto) 0.31 (0.24-0.82) K/uL Eos # (Auto) 0.03 (0-0.50) K/uL Baso # (Auto) 0.01 (0-0.2) K/uL Immature Gran # (Auto) 0.15 H (0.00-0.02) K/uL Polychromasia 1+ Basophilic Stippling 1+ Stomatocytes 1+ VBG pH (7.36-7.41) VBG pCO2 (38-50) mmHg VBG pO2 mmHg VBG HCO3 mmol/L VBG O2 Saturation % VBG Base Excess mEq/L Sodium 136 (136-145) mmol/L Potassium 5.4 H (3.5-5.1) mmol/L Chloride 90 L (98-107) mmol/L Carbon Dioxide 43 H* (21-32) mmol/L Anion Gap 3 (3-11) BUN 75 H (6-23) mg/dl Creatinine 1.85 H (0.6-1.4) mg/dl Est Cr Clr Drug Dosing 43.5 ml/min Est GFR ( Amer) 41.0 ml/min Est GFR (Non-Af Amer) 35.3 ml/min BUN/Creatinine Ratio 40.5 H (10-20) Glucose 226 H (70-99(Fasting)) mg/dl Lactate (0.4-2.0) mmol/L Calcium 9.8 (8.5-10.1) mg/dl Phosphorus 4.1 (2.5-4.9) mg/dl Magnesium 2.1 (1.7-2.4) mg/dl Total Bilirubin 0.8 (0.2-1.0) mg/dl AST 26 (13-39) U/L ALT 49 (7-52) U/L Alkaline Phosphatase 169 H (34-104) U/L Troponin I High Sens 48.2 H D (0-20) pg/ml B-Natriuretic Peptide 173 H (0-100) pg/ml Total Protein 7.7 (6.0-8.3) gm/dl Albumin 3.8 (3.4-5.0) gm/dl Globulin 3.9 (2.5-4.0) gm/dl Albumin/Globulin Ratio 1.0 (0.9-2) Lipase 35 (11-82) U/L Procalcitonin (0-0.5) ng/ml SARS-CoV-2 (PCR) (Negative) Influenza Type A (PCR) (Neg) Influenza Type B (PCR) (Neg) RSV (RT-PCR) (Neg) 07/20/22 07/20/22 07/20/22 Range/Units 15:45 16:12 17:18 WBC (4.8-10.8) K/ul RBC (4.63-6.08) M/uL Hgb (14.0-18.0) g/dl Hct (40.1-51.0) % MCV (80.0-100.0) fL MCH (25.0-34.0) pg MCHC (32.0-36.0) g/dL RDW Std Deviation (36.4-46.3) fL RDW Coeff of Yogi (11.5-14.5) % Plt Count (130-400) K/uL MPV (9.4-12.4) fL Immature Gran % (Auto) % Neut % (Auto) % Lymph % (Auto) % Dougherty % (Auto) % Eos % (Auto) % Baso % (Auto) % Neut # (Auto) (1.4-6.5) K/uL Lymph # (Auto) (1.2-3.4) K/uL Dougherty # (Auto) (0.24-0.82) K/uL Eos # (Auto) (0-0.50) K/uL Baso # (Auto) (0-0.2) K/uL Immature Gran # (Auto) (0.00-0.02) K/uL Polychromasia Basophilic Stippling Stomatocytes VBG pH (7.36-7.41) VBG pCO2 (38-50) mmHg VBG pO2 mmHg VBG HCO3 mmol/L VBG O2 Saturation % VBG Base Excess mEq/L Sodium (136-145) mmol/L Potassium (3.5-5.1) mmol/L Chloride (98-107) mmol/L Carbon Dioxide (21-32) mmol/L Anion Gap (3-11) BUN (6-23) mg/dl Creatinine (0.6-1.4) mg/dl Est Cr Clr Drug Dosing ml/min Est GFR ( Amer) ml/min Est GFR (Non-Af Amer) ml/min BUN/Creatinine Ratio (10-20) Glucose (70-99(Fasting)) mg/dl Lactate 1.1 (0.4-2.0) mmol/L Calcium (8.5-10.1) mg/dl Phosphorus (2.5-4.9) mg/dl Magnesium (1.7-2.4) mg/dl Total Bilirubin (0.2-1.0) mg/dl AST (13-39) U/L ALT (7-52) U/L Alkaline Phosphatase (34-104) U/L Troponin I High Sens (0-20) pg/ml B-Natriuretic Peptide (0-100) pg/ml Total Protein (6.0-8.3) gm/dl Albumin (3.4-5.0) gm/dl Globulin (2.5-4.0) gm/dl Albumin/Globulin Ratio (0.9-2) Lipase (11-82) U/L Procalcitonin 0.11 (0-0.5) ng/ml SARS-CoV-2 (PCR) NEGATIVE (Negative) Influenza Type A (PCR) Negative (Neg) Influenza Type B (PCR) Negative (Neg) RSV (RT-PCR) Negative (Neg) 07/20/22 07/20/22 Range/Units 17:18 19:02 WBC (4.8-10.8) K/ul RBC (4.63-6.08) M/uL Hgb (14.0-18.0) g/dl Hct (40.1-51.0) % MCV (80.0-100.0) fL MCH (25.0-34.0) pg MCHC (32.0-36.0) g/dL RDW Std Deviation (36.4-46.3) fL RDW Coeff of Yogi (11.5-14.5) % Plt Count (130-400) K/uL MPV (9.4-12.4) fL Immature Gran % (Auto) % Neut % (Auto) % Lymph % (Auto) % Dougherty % (Auto) % Eos % (Auto) % Baso % (Auto) % Neut # (Auto) (1.4-6.5) K/uL Lymph # (Auto) (1.2-3.4) K/uL Dougherty # (Auto) (0.24-0.82) K/uL Eos # (Auto) (0-0.50) K/uL Baso # (Auto) (0-0.2) K/uL Immature Gran # (Auto) (0.00-0.02) K/uL Polychromasia Basophilic Stippling Stomatocytes VBG pH 7.32 L (7.36-7.41) VBG pCO2 93 H (38-50) mmHg VBG pO2 29 mmHg VBG HCO3 48 mmol/L VBG O2 Saturation < 60.0 % VBG Base Excess 16.9 mEq/L Sodium (136-145) mmol/L Potassium (3.5-5.1) mmol/L Chloride (98-107) mmol/L Carbon Dioxide (21-32) mmol/L Anion Gap (3-11) BUN (6-23) mg/dl Creatinine (0.6-1.4) mg/dl Est Cr Clr Drug Dosing ml/min Est GFR ( Amer) ml/min Est GFR (Non-Af Amer) ml/min BUN/Creatinine Ratio (10-20) Glucose (70-99(Fasting)) mg/dl Lactate (0.4-2.0) mmol/L Calcium (8.5-10.1) mg/dl Phosphorus (2.5-4.9) mg/dl Magnesium (1.7-2.4) mg/dl Total Bilirubin (0.2-1.0) mg/dl AST (13-39) U/L ALT (7-52) U/L Alkaline Phosphatase (34-104) U/L Troponin I High Sens 41.8 H (0-20) pg/ml B-Natriuretic Peptide (0-100) pg/ml Total Protein (6.0-8.3) gm/dl Albumin (3.4-5.0) gm/dl Globulin (2.5-4.0) gm/dl Albumin/Globulin Ratio (0.9-2) Lipase (11-82) U/L Procalcitonin (0-0.5) ng/ml SARS-CoV-2 (PCR) (Negative) Influenza Type A (PCR) (Neg) Influenza Type B (PCR) (Neg) RSV (RT-PCR) (Neg) Administered Medications Doxycycline Hyclate (Doxycycline Hyclate 100 Mg Cap) 100 mg PO BID AMBER Stop: 07/27/22 23:03 Last Admin: 07/20/22 23:43 Dose: 100 mg Documented By: CF Ipratropium [place] (Ipratropium [place] Neb Soln 0.02% 2.5 Ml Vial) 0.5 mg INH Q6R AMBER Stop: 08/20/22 00:59 Last Admin: 07/21/22 00:32 Dose: 0.5 mg Documented By: CS Levalbuterol HCl (Levalbuterol 1.25mg/0.5ml Neb) 1.25 mg INH Q6R AMBER Stop: 08/20/22 00:59 Last Admin: 07/21/22 00:33 Dose: Not Given Documented By: CS Rivaroxaban (Rivaroxaban 15 Mg Tab) 15 mg PO HS AMBER Stop: 08/19/22 23:03 Last Admin: 07/20/22 23:43 Dose: 15 mg Documented By: CF Discontinued Medications Albuterol (Albut/Ipratrop 3mg/0.5mg Neb 3 Ml Vial) 3 ml NEB NOW STA; Protocol Stop: 07/20/22 18:07 Last Admin: 07/20/22 18:16 Dose: 3 ml Documented By: RSL Levalbuterol HCl (Levalbuterol Hcl 1.25 Mg/3 Ml Neb) Confirm Administered Dose 1.25 mg .ROUTE .STK-MED ONE Stop: 07/21/22 00:30 Last Admin: 07/21/22 00:32 Dose: 1.25 mg Documented By: CS Methylprednisolone (Methylprednisolone 125 Mg/2 Ml Vial) 125 mg IV NOW STA Stop: 07/20/22 18:07 Last Admin: 07/20/22 18:16 Dose: 125 mg Documented By: RSL Sodium Polystyrene Sulfonate (Sodium Polystyrene Sulfonate 15g/60ml Susp) 15 gm PO NOW STA Stop: 07/20/22 23:05 Last Admin: 07/20/22 23:51 Dose: 15 gm Documented By: CF Imaging Data Radiologist's Impression: Chest X-Ray 07/20/22 15:56 XR chest 1V portable HISTORY: Atypical Chest Pain COMPARISON: Chest 07/10/2022. FINDINGS: No pneumothorax. No significant change in the reticulonodular interstitial thickening, hazy bilateral airspace opacities, and trace bilateral pleural effusions. There are low lung volumes. The heart remains mildly enlarged. There is a left-sided pacemaker/defibrillator again noted. Advanced degenerative changes within the shoulders. IMPRESSION: No significant change in the reticulonodular interstitial thickening, hazy bilateral airspace opacities, and trace bilateral pleural effusions. ACT 112: Negative or not required by law. Electronically signed by: Reza Shanks M.D. 07/20/2022 5:41 PM Discharge Plan Visit Data Chief Complaint: Shortness of Breath/Dyspnea Stated Complaint: Shortness of breath ED Provider: Hao Alcazar Discharge Problem: Acute on chronic respiratory failure with hypoxia and hypercapnia, CHF (congestive heart failure), COPD (chronic obstructive pulmonary disease), Elevated troponin, Paroxysmal atrial fibrillation Patient Disposition: Admitted As Inpatient Discharge Instructions Interventions: ED Discharge Assessment Last Done: 07/20/22 23:39
[2022-07-20] MEDS: RIVAROXABAN 15 MG TAB PO SCH (23:43)
[2022-07-20] MEDS: DOXYCYCLINE HYCLATE 100 MG CAP PO SCH (23:43)
--- NOTE | 2022-07-20 23:48 | History and Physical Report ---
DATE OF ADMISSION: 07/20/2022. CHIEF COMPLAINT: Zppwz-uk-ikcliuq respiratory failure. HISTORY OF PRESENT ILLNESS: This is a 71-year-old male with past medical history significant for lung cancer with mets to liver, on home oxygen, receiving chemo. He has received 6 cycles of chemo, but he is not getting chemo on a regular schedule because of complications. Last chemo was on 06/03. History of interstitial lung disease, chronic kidney disease stage III, iron- deficiency anemia, chronic systolic heart failure, paroxysmal atrial fibrillation, history of DVT/PE, on anticoagulation, history of CAD, history of anemia. Currently at [facility]. Comes with shortness of breath. The patient was recently in the hospital, prolonged hospital stay from 06/21 and discharged on 07/15 to [facility]. During the hospitalization, he was treated for juycx-pf-ffenrnk respiratory failure with hypoxia. Initially, his hypoxia was felt secondary to heart failure with reduced EF, EF of around 35%-40%. Suddenly, he became hypercapnic requiring BiPAP in the ICU and he again became tachypneic on 07/06, had increased fluid on chest x-ray, thought to be secondary to volume overload after Lasix was held secondary to YELENA. 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 During that hospital stay, he was status post bronchoscopy, BAL findings consistent with alveolar hemorrhage. Cytology was negative. Initially Xarelto was held, but restarted. He was placed on steroids and Bactrim for infectious prophylaxis. Workup for pulmonary hemorrhage with MIRANDA and ANCA were both negative. Pneumocystis jiroveci pneumonia PCR was negative and Fungitell was negative. He also completed a course of antibiotics for possible pneumonia. Lasix was stopped and ethacrynic acid was started by nephrology. He says he is supposed to use BiPAP as tolerated, but he refused BiPAP in the hospital, also seems to be not using much BiPAP in the rehab, he is not ambulating. He required Ativan p.r.n. for BiPAP use while in the hospital. Today, he became more short of breath in [facility], it looks like he was saturating down to 70% and he was brought in here. Currently on aerosol mask, he is saturating okay, answering appropriately. Seemed to have mild tachypnea, sisters in the room. The patient denies any headache. No neck pain, no chest pain, no abdominal pain, no back pain, no leg pains. Denies any blurred visions, no runny nose, no sore throat. Denies any cough at this time. Denies any fevers. Appetite is not that great as per the sisters, he is on soft food, not eating much, swallows okay. He was short of breath earlier, but he says he is doing okay now. Denies any nausea, vomiting. Normal bowel and bladder movements. ALLERGIES: DIPHTHERIA TOXOID, TETANUS TOXOID. PAST MEDICAL HISTORY: As mentioned above. PAST SURGICAL HISTORY: History of appendectomy, cardiac catheterization, no stents, history of cardioversion, history of bilateral carpal tunnel release, history of cataract surgery, history of colonoscopy, history of EGD, history of evacuation of hematoma in the left lower extremity, history of left shoulder surgery, history of tonsillectomy, status post ICD placement and pacemaker placement in 1999. FAMILY HISTORY: Significant for mother had diabetes; father had lymphoma; maternal grandfather had IN. SOCIAL HISTORY: Former smoker, quit at the age of 53, smoked 1 pack a day. No alcohol use. No drug use. Currently coming from [facility]. REVIEW OF SYSTEMS: As per HPI. Rest of review of systems is negative. MEDICATIONS: The patient is currently on Tylenol 650 mg p.o. q.4 hours p.r.n., albuterol sulfate 1 inhalation q.4 hours p.r.n., allopurinol 100 mg p.o. daily, atorvastatin 40 mg p.o. at bedtime, benzonatate 200 mg p.o. t.i.d. p.r.n., vitamin D 50 mcg p.o. daily, vitamin B12 1000 mcg p.o. daily, Colace 100 mg p.o. b.i.d., ethacrynic acid 25 mg p.o. daily, folic acid 1 mg p.o. daily, DuoNeb q.6 hours p.r.n., loratadine 10 mg p.o. daily, lorazepam 0.5 mg p.o. q.8 hours p.r.n., magnesium oxide 400 mg p.o. daily, metoprolol succinate 50 mg p.o. daily, Zofran 4 mg p.o. q.4 hours p.r.n., Protonix 20 mg p.o. daily, MiraLax 17 g p.o. daily p.r.n., prednisone currently on tapering dose 30 mg daily, Xarelto 15 mg p.o. at bedtime, Senokot-S 1 tablet p.o. daily p.r.n., Bactrim Double Strength 1 tablet p.o. Monday, Monday and Monday. PHYSICAL EXAMINATION: GENERAL: The patient is alert, awake, and oriented. VITAL SIGNS: Temperature 36.5, pulse 76, respiratory rate 24, blood pressure 102/72, oxygen 100% on OxyMask at 4 liters. HEENT: Pupils equal, round and reactive to light. Oral mucosa moist. NECK: No JVD. No neck masses. CARDIOVASCULAR: S1 and S2 heard. Regular rate and rhythm. No murmur, no gallop. RESPIRATORY SYSTEM: Normal AP diameter. Mild bibasilar crackles, shallow breathing, no obvious wheezing. ABDOMEN: Soft, bowel sounds present, nontender, no distention. CENTRAL NERVOUS SYSTEM: Alert and oriented. Speech is clear. No facial droop. Obeys simple commands. Insight is good. Moves extremities. EXTREMITIES: No edema, no erythema seen. LABORATORY DATA: WBC 12.7, hemoglobin 10.4, hematocrit 33.6, platelets 162. Venous blood gas; pH of 7.32, pCO2 of 93, pO2 of 29, bicarbonate 48. Sodium 136, potassium 5.4, chloride 90, bicarbonate 43, BUN 75, creatinine 1.85, serum glucose 226. Lactate 1.1, calcium 9.8, phosphorus 4.1, magnesium 2.1, total bilirubin 0.8, AST 26, ALT 49, alkaline phosphatase 169. Troponin I high sensitivity 41.8. BNP 173. Lipase 35. Procalcitonin 0.1. SARS-CoV-2 PCR negative. Influenza A and B PCR negative. RSV PCR negative. Chest x-ray: No significant change in the nodular interstitial thickening and hazy bilateral airspace opacities and trace bilateral pleural effusions. EKG: AFib with PVCs at a rate of 91, no significant change was found. ASSESSMENT AND PLAN: This is a 71-year-old male with history of interstitial lung disease, lung cancer, congestive heart failure, presents with eshnz-rn-xjxrbft respiratory failure. 1. Rgfef-dg-hxxbpxv respiratory failure with hypoxia and hypercapnia, most likely secondary to interstitial lung disease flare. He was discharged on 40 mg daily prednisone to tapering dose, currently on 30 mg of prednisone. Emergency Room gave a dose of IV Solu-Medrol 125. We will continue with Solu-Medrol 40 t.i.d., p.o. doxycycline and nebulizers around the clock and p.r.n. We will use BiPAP for now. Consult pulmonary in the a.m. The patient is on Bactrim prophylaxis for being on steroids . Will continue BActrim until further recommendations form Pulmonary. Steroid taper as per Pulmonary. 2. Chronic systolic congestive heart failure, ejection fraction of 35%-40%, status post implantable cardioverter-defibrillator, holding the ethacrynic acid because of acute kidney injury. Closely monitor for volume overload. 3. 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 Finished only 6 cycles of chemotherapy, which was not going on a schedule because of complications. Last chemotherapy was on 06/03. Follow up with hematology/oncology. 4. History of deep venous thrombosis and pulmonary embolism, on Xarelto. 5. History of atrial fibrillation, rate controlled with metoprolol, on Xarelto. 6. Acute kidney injury on ckd stage 3. Holding ethacrynic acid, avoid nephrotoxic agent. Follow with repeat laboratories. Consult nephrology. 7. Hyperkalemia. Low-potassium diet, possibly Bactrim causing it.Continuation of Bactrim as per nephro/pulmonary Await nephrology input. Follow the repeat laboratories. 8. Anemia. hb 10.4. Follow the laboratories. 9. Deep venous thrombosis prophylaxis, on Xarelto. Addendum: Potassium 6.2 in am labs. Ordered iv insulin, dextrose , calcium gluconate and Kayexalate. Follow repeat labs. Await Nephro inputs. DISPOSITION: Closely monitor in the tele floor. Level 1, full code. PT, OT prior to discharge. Social service to help with discharge planning. Job ID: [id number] [facility] CENTERBlanca
[2022-07-21] MEDS ORDERED: LEVALBUTEROL HCL 1.25 MG/3 ML NEB ONE (00:29)
[2022-07-21] MEDS: IPRATROPIUM BROMIDE NEB SOLN 0.02% 2.5 ML VIAL INH SCH ×4 (00:32→19:40)
[2022-07-21] MEDS: LEVALBUTEROL 1.25MG/0.5ML NEB INH SCH ×4 (00:33→19:40)
[2022-07-21] MEDS ORDERED: XOPENEX/ATROVENT 1.25mg/0.5MG NEB COMBO NEB SCH (01:00)
[2022-07-21 05:33] LABS: Hematocrit (blood only) 31.7 % (40.1-51.0); Hemoglobin 9.8 g/dl (14.0-18.0); Mean Corpuscular Hemoglobin 32.8 pg (25.0-34.0); Mean Corpuscular Hgb Conc 30.9 g/dL (32.0-36.0); Mean Platelet Volume 10.9 fL (9.4-12.4); Platelet Count 144 K/uL (130-400); RDW Coefficient of Variation 22.5 % (11.5-14.5); RDW Standard Deviation 86.2 fL (36.4-46.3); Red Blood Count 2.99 M/uL (4.63-6.08); White Blood Count 12.44 K/ul (4.8-10.8)
[2022-07-21 05:58] LABS: BUN Creatinine Ratio 44.9 (10-20); Calcium 9.3 mg/dl (8.5-10.1); Creatinine Clr Calc Pharmacy 40.2 ml/min; Est GFR (Non-African American) 35.3 ml/min; Magnesium 2.1 mg/dl (1.7-2.4); Potassium 6.2 mmol/L (3.5-5.1)
[2022-07-21] MEDS ORDERED: STAT IV STA (06:00)
[2022-07-21] MEDS ORDERED: DEXTROSE 50% 50 ML SYRINGE IV STA (06:00)
[2022-07-21] MEDS ORDERED: SODIUM POLYSTYRENE SULFONATE 15G/60ML SUSP PO ONE (06:15)
[2022-07-21] MEDS ORDERED: INSULIN HUMAN REGULAR PER UNIT 10 UNITS in SYRINGE 0 ML IV ONE (06:15)
[2022-07-21] MEDS ORDERED: CALCIUM GLUCONATE 10% 1,000 MG in DEXTROSE 5% 50 ML IV ONE (06:15)
[2022-07-21] MEDS ORDERED: INSULIN HUMAN REGULAR PER UNIT 10 UNITS in SYRINGE 9.9 ML IV ONE (06:15)
[2022-07-21] MEDS: methylPREDNISolone 40 MG in SYRINGE 0 ML IV SCH ×2 (06:24→14:59)
[2022-07-21 06:25] LABS: Basophilic Stippling 1+; Basophils # (auto) 0.01 K/uL (0-0.2); Basophils % (auto) 0.1 %; Immature Granulocytes # (auto) 0.19 K/uL (0.00-0.02); Immature Granulocytes % (auto) 1.5 %; Lymphocytes # (auto) 0.19 K/uL (1.2-3.4); Lymphocytes % (auto) 1.5 %; Monocytes # (auto) 0.22 K/uL (0.24-0.82); Monocytes % (auto) 1.8 %; Neutrophils # (auto) 11.83 K/uL (1.4-6.5); Neutrophils % (auto) 95.1 %; Polychromasia 1+; Stomatocytes 1+
--- NOTE | 2022-07-21 08:11 | Electrocardiogram Report ---
Test Reason : Blood Pressure : / mmHG Vent. Rate : 091 BPM Atrial Rate : 326 BPM P-R Int : 000 ms QRS Dur : 092 ms QT Int : 322 ms P-R-T Axes : 000 -24 120 degrees QTc Int : 396 ms Atrial fibrillation with premature ventricular or aberrantly conducted complexes Low voltage QRS Possible Old Inferior infarct (cited on or before 03-MAR-2022) Poor R wave progression, consider anterior VA vs. lead placement vs. LVH Abnormal ECG When compared with ECG of 09-JUL-2022 08:56, No significant change was found Confirmed by Amos Gillis ([id number]) on 07/21/2022 8:10:57 AM Referred By: REFERRED SELF Confirmed By:Amos Gillis
[2022-07-21] MEDS: DOXYCYCLINE HYCLATE 100 MG CAP PO SCH ×2 (08:27→20:20)
[2022-07-21] MEDS: CYANOCOBALAMIN (B-12) 500 MCG TABLET PO SCH (08:27)
[2022-07-21] MEDS: DOCUSATE SODIUM 100 MG CAP PO SCH ×2 (08:27→20:21)
[2022-07-21] MEDS: PANTOprazole 40 MG TAB PO SCH (08:27)
[2022-07-21] MEDS: allopurinoL 100 MG TAB PO SCH (08:28)
[2022-07-21] MEDS: METOPROLOL SUCC 50MG EXT REL TAB PO SCH (08:28)
[2022-07-21] MEDS: LORATADINE 10 MG TAB PO SCH (08:28)
[2022-07-21] MEDS ORDERED: ETHACRYNIC ACID 25 MG TAB PO STA ×2 (10:21→11:47)
[2022-07-21] MEDS ORDERED: FUROSEMIDE 40 MG/4 ML VIAL IV ONE (10:25)
[2022-07-21] MEDS ORDERED: MAGNESIUM OXIDE 400 MG TAB PO SCH (11:30)
--- NOTE | 2022-07-21 12:50 | Pulmonary Consultation ---
Date of Consultation July 21, 2022 Assessment & Plan (1) COPD (chronic obstructive pulmonary disease): (2) ILD (interstitial lung disease): (3) Chronic respiratory failure with hypoxia and hypercapnia: (4) Squamous cell carcinoma: Plan CT chest 06/25/2022 personally reviewed: Diffuse alveolar opacities appreciated bilaterally Small bilateral pleural effusion, little more on the right side Elevated right hemidiaphragm Cardiomegaly Calcified mediastinal hilar lymph nodes Chest x-ray 07/20/2022: Portable film, fair inspired effort, bilateral alveolar opacities appreciated. No significant change compared to 07/10/2022. May consider mild worsening --Chronic hypoxic respiratory failure Multifactorial Underlying ILD, I do not think patient is in exacerbation of ILD Does have history of CHF, continue with diuretics Continue with O2 supplementation to keep oxygen between 88-92% COVID 19 PCR negative Influenza A/B negative BNP 173 Procalcitonin 0.11 S/p bronchoscopy 06/28/2022 which showed possibility of alveolar hemorrhage and patient was started on prednisone at that time. PJP PCR was negative from the [facility] as well as transbronchial biopsies were negative for malignancy at that time Patient was supposed to be on 20mg of Prednisone at the [facility] -- Metastatic [facility] carcinoma [facility] has recently been diagnosed with squamous cell carcinoma and going current chemotherapy last chemotherapy was 06/17/2022 --COPD Not on any inhalers right now I will start the patient on Incruse to be used on a daily basis -- ILD Not on any treatment at home Plan: Patient is back to his baseline and comes to his oxygen requirement Continue with CPAP nightly as needed shortness of breath I doubt the patient has any pneumonia with no significant change in the chest x- ray compared to before. Okay to give doxycycline for 5 days. Discontinue Solu-Medrol. Continue with previous dose of prednisone which she was on taper for. I think he will should be on 10 mg right now. He was also on Bactrim for possible diffuse alveolar hemorrhage on bronchoscopy done 06/28/2022. Bactrim can also be associated with increasing creatinine as well as hyperkalemia. Hold off on to Bactrim right now. Case discussed with Dr Johnson Please note the above document was generated using voice recognition software. It may contain grammatical, syntax or spelling errors.Any formal questions or concerns about the content, text or information contained within the body of this dictation should be directly addressed to the provider for clarification. History of Present Illness Attending Physician: Marshal Johnson MD History of Present Illness 71-year-old male was admitted to hospital because of worsening shortness of breath Past medical history: Systolic CHF, ILD on chronic O2, metastatic squamous cell carcinoma currently on chemotherapy, paroxysmal A. fib, history of DVT and PE Patient's as well as sister were in the room at the time of examination He was saturating 99% on 3 L nasal cannula. I went down to 2 L and he was still maintaining saturation around 97-98% He was not in any respiratory distress. He says that he is feeling better. Denies any chest congestion. Does bring up some phlegm with no blood in it. No fever or chills No night sweats, no unintentional weight loss. No headache or blurry vision No personal or family history of any autoimmune disease like lupus, sarcoid, Sjogren's, rheumatoid. Social history: 84-vmzi-aetl smoking history quit around the age of 56, used to work in [employer]. Did not wear mask at the time Allergies Allergy/AdvReac Type Severity Reaction Status Date / Time diphtheria toxoid,fluid Allergy Severe CONVULSIONS--HORSE Verified 07/20/22 21:22 SERUM BASE tetanus toxoid, adsorbed Allergy Severe CONVULSIONS--HORSE Verified 07/20/22 21:22 SERUM BASE Home Medications Medication Instructions Recorded Confirmed Type acetaminophen 325 mg tablet 650 mg PO Q4 PRN Pain 07/20/22 07/20/22 History (Tylenol) albuterol sulfate 90 mcg/actuation 1 inh inhalation Q4 PRN Wheezing 07/20/22 07/20/22 History aerosol inhaler (Proventil HFA) allopurinol 100 mg tablet 100 mg PO QAM 07/20/22 07/20/22 History atorvastatin 40 mg tablet 40 mg PO HS 07/20/22 07/20/22 History benzonatate 100 mg capsule 200 mg PO TID PRN Cough 07/20/22 07/20/22 History cholecalciferol (vitamin D3) 50 50 mcg PO DAILY 07/20/22 07/20/22 History mcg (2,000 unit) tablet (Vitamin D3) cyanocobalamin (vitamin B-12) 1,000 mcg PO DAILY 07/20/22 07/20/22 History 1,000 mcg tablet docusate sodium 100 mg tablet 100 mg PO BID 07/20/22 07/20/22 History ethacrynic acid 25 mg tablet 25 mg PO DAILY 07/20/22 07/20/22 History (Edecrin) folic acid 1 mg tablet 1 mg PO DAILY 07/20/22 07/20/22 History ipratropium 0.5 mg-albuterol 3 mg 3 ml inhalation Q6H PRN Shortness 07/20/22 07/20/22 History (2.5 mg base)/3 mL nebulization Of Breath soln loratadine 10 mg tablet 10 mg PO DAILY 07/20/22 07/20/22 History lorazepam 0.5 mg tablet 0.5 mg PO Q8 PRN Anxiety 07/20/22 07/20/22 History magnesium oxide 400 mg (241.3 mg 400 mg PO DAILY 07/20/22 07/20/22 History magnesium) tablet metoprolol succinate 50 mg 50 mg PO DAILY 07/20/22 07/20/22 History tablet,extended release 24 hr ondansetron HCl 4 mg tablet 4 mg PO Q4 PRN Nausea 07/20/22 07/20/22 History pantoprazole 20 mg tablet,delayed 20 mg PO QAM 07/20/22 07/20/22 History release polyethylene glycol 3350 17 gram 17 g PO DAILY PRN Constipation 07/20/22 07/20/22 History oral powder packet (Miralax) prednisone 10 mg tablet 30 mg PO .DAILY UD 07/20/22 07/20/22 History prednisone 20 mg tablet 20 mg PO .DAILY UD 07/20/22 07/20/22 History rivaroxaban 15 mg tablet (Xarelto) 15 mg PO HS 07/20/22 07/20/22 History sennosides 8.6 mg-docusate sodium 1 tab-cap PO DAILY PRN Constipation 07/20/22 07/20/22 History 50 mg tablet (Senna-S) sulfamethoxazole 800 1 tab PO MOWEFR 07/20/22 07/20/22 History mg-trimethoprim 160 mg tablet Patient History Medical History Acute GI bleeding Atrial fibrillation dx 2016 - follows w/ Dr. Trejo Chronic systolic heart failure CKD (chronic kidney disease), stage III Congestive heart failure Deep vein thrombosis RLE - 2016 dx while hospitalized w/ pneumonia Duodenal ulcer Hearing deficit BL [facility] Hematoma of left lower extremity Osteoarthritis Pneumonia Pulmonary embolism 2016 - dx while hospitalized w/ pneumonia - on xarelto Surgical History History of appendectomy History of cardiac catheterization 2016 - [place] - no stents History of cardioversion 11/08/2016 History of carpal tunnel release of both wrists History of cataract surgery History of colonoscopy History of esophagogastroduodenoscopy (EGD) History of evacuation of hematoma LLE History of shoulder surgery Left 2005 History of tonsillectomy Presence of combination internal cardiac defibrillator (ICD) and pacemaker placed 2016 - [employer] - last checked 1 year ago - follows w/ dr. yeh Family History Mother Diabetes Grandfather (Paternal) No problems noted. Father Lymphoma Grandfather (Maternal) Myocardial infarction Other No family history of adverse response to anesthesia Denies family history of Ovarian cancer Prostate cancer Heart disease Breast cancer Colorectal cancer Social History Smoking Status: Former smoker Tobacco Type: Cigarettes Age Quit Using Tobacco: 53; Cigarettes Per Day: 1 pack a day; Second Hand Exposure: No; Do You Dip or Chew Tobacco: No; Tobacco Cessation Education Requested by Patient: No Hx Alcohol Use: No Hx Substance Use: No Preferred Language: Portuguese Communication Ability: Effective Visual Impairment: Limited Hearing Ability: Use of Hearing Aid Industry Analyst Required: No Beliefs That Will Affect Care: None marital status: Current Living Situation: Rehab Current Living Situation Comment: [facility] current occupational status: retired 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 [employer] How many Children do You have: 0 Other Information That Helps Us Care for You: No Feels Safe at Home: Yes Safety Concerns: Feels Safe At This Time Childhood Exposure to Second-Hand Smoke: Yes (dad did ) caffeine: Yes (cup of coffee in morning ) Dental Care, Regularly: No Physical Activity Frequency: Does not Exercise Seatbelt Use: always Sunscreen Use: No (doesn't go out in sun ) Assistive Devices: Bedside Commode, Cane, Walker and Wheelchair Review of Systems Review of Systems: All systems reviewed & are unremarkable except as noted in HPI & below Physical Exam Physical Exam: Constitutional: No acute distress HEENT: EOMI, PERRLA Respiratory system: Decreased air entry bilaterally, no wheeze, no rhonchi, positive crackles bilaterally CVS: S1-S2 positive, no murmurs or gallops Abdomen: Soft, nontender, nondistended, positive bowel sounds x4 Extremities: +2 pulses bilaterally radialis/ dorsalis pedis, no cyanosis, +1 pitting edema bilateral lower extremity Neuro: Awake alert oriented x3 Psych: Normal mood and affect G/U: No Burr Skin: no rashes, warm and dry Lymphatic: no cervical or axillary lymphadenopathy Results & Data Results & Data ([facility]) Vital Signs (Past 12 Hours) Vital Signs Temp Pulse Pulse Pulse Resp BP Pulse Ox 07/21/22 12:11 61 27 H 98 07/21/22 11:30 91 H 31 H 99 07/21/22 10:55 36.4 C L 89 18 117/77 99 07/21/22 06:50 76 20 100 07/21/22 07:06 36.4 C L 88 18 112/82 94 07/21/22 03:29 54 L 22 104/67 100 O2 Del Method O2 Flow Rate FiO2 07/21/22 12:11 BiPAP 40 07/21/22 11:30 50 07/21/22 10:55 Oxymask 4 07/21/22 06:50 Oxymask 5 07/21/22 07:06 Oxymask 5 07/21/22 03:29 Oxymask 6 Laboratory Results 07/21/22 05:21 07/21/22 05:21 PG Care Time/CCT Total # of Minutes Spent Total Time Spent with Patient: Total time spent is greater than 50% in coordination of care (as documented) at patient's floor/unit and/or counseling patient: [place] [address] Initial Inpt Care Lvl 3 Patient Type New Diagnoses COPD (chronic obstructive pulmonary disease) J44.9 ILD (interstitial lung disease) J84.9 Chronic respiratory failure with hypoxia and hypercapnia J96.11; J96.12 Squamous cell carcinoma
[2022-07-21] MEDS: LORazepam 0.5 MG TAB PO PRN (13:49)
[2022-07-21] MEDS: FOLIC ACID 1 MG TAB PO SCH (13:50)
[2022-07-21] MEDS: CHOLECALCIFEROL 1,000 UNITS 25 MCG TAB PO SCH (13:50)
[2022-07-21 13:56] LABS: Phosphorus 5.3 mg/dl (2.5-4.9)
--- NOTE | 2022-07-21 16:27 | Hospitalist Progress Note ---
Date of Service July 21, 2022 Assessment & Plan (1) Acute on chronic respiratory failure with hypoxia and hypercapnia: Plan 71-year-old male with PMH of lung cancer with mets to liver/on home oxygen/receiving chemo [received 6 cycles of chemo, not getting chemo on a regular schedule because of complications, last chemo 06/03], interstitial lung disease, CKD stage III, LAWRENCE, CHF, PAF, DVT/PE on anticoagulation, CAD, anemia [facility] with complaint of acute shortness of breath and SPO2 went down to 70%. 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 He also completed antibiotic course for possible pneumonia. He seems not using his BiPAP much in the rehab and in hospital. He is being managed for the following: Acute on chronic respiratory failure with hypoxia and hypercapnia, most likely secondary to interstitial lung disease flare Interstitial lung disease flareup Patient presented with shortness of breath and SPO2 70% [see above]. Admitting CXR with no significant change in the reticulonodular interstitial thickening/hazy bilateral airspace opacities and trace bilateral pleural effusions. Patient is noncompliant with BiPAP. Patient has recent diagnosis of sqamous cell lung cancer with metastasis to liver, follows oncology [see above] Patient was discharged on 40 mg of daily prednisone on tapering dose, was on 30 mg of prednisone at presentation. Patient was on Bactrim prophylaxis for being on a steroid. Status post IV steroid in the ED with improvement in his respiratory status. Continue with prednisone with pulmonology recommendation, BiPAP as tolerated, doxycycline and nebulizers [id number] and as needed. Patient requiring 4 L oxygen via OxiMax at bedside, reports improvement in his breathing status. Discussed with pulmonology, prednisone dose reduced to 10 mg daily, no need for Bactrim prophylaxis. Doxycycline for 5 days. YELENA over CKD stage III Hyperkalemia Admitting creatinine of 1.85 with potassium of 5.4. Baseline creatinine of around 1.3-1.5 Both likely secondary to Bactrim use, Bactrim discontinued Potassium up trended, status post potassium cocktail, nephrology consulted, patient received a dose of Lasix. Will repeat BMP in afternoon. Avoid nephrotoxic's. BMP in AM. Low potassium diet. History of PAF/DVT/PE: Patient on Xarelto and metoprolol. DVT prophylaxis: Patient on Xarelto Disposition: PT/OT, CM to assist with DC planning. Full code Admission and Anticipated Discharge Date Admission Date: July 20, 2022 Subjective Patient seen and examined at bedside as a follow-up of acute on chronic respirat ory failure with hypoxia and hypercapnia most likely secondary to interstitial lung disease flare and hyperkalemia on the background of worsening kidney function and prophylactic Bactrim use. Patient was lying in bed, on 4 L oxygen via oxygen mask, denies new acute event overnight, per RN patient denied BiPAP overnight, patient reports eating okay and had bowel movement 2 days ago, reports improvement in his breathing, denies increased shortness of breath/headache/dizziness/chest pain/belly pain/other review of symptoms. Patient does look ill and frail. Physical Exam Physical Exam: GENERAL: Alert and oriented x3. NAD, on 4 L oxygen via oxygen mask. Ill and frail appearing. HEENT: No pallor, no icterus. Pupils equal, round and reactive to light. Oral mucosa moist. NECK: No JVD, no neck masses. HEART: S1 and S2 heard. irregular rate and rhythm. No murmur, no gallop. RESPIRATORY SYSTEM: Normal AP diameter. No accessory muscle use. No wheezing, b/b crackles. ABDOMEN: Soft, bowel sounds present, nontender, no distention. CENTRAL NERVOUS SYSTEM: No facial droop. Speech is clear. Obeys simple commands. Moves extremities. EXTREMITIES: No edema, no erythema seen. Results & Data Results & Data ([facility]) Vital Signs (Past 12 Hours) Vital Signs Temp Pulse Pulse Pulse Resp BP Pulse Ox 07/21/22 15:35 36.5 C 95 H 21 113/73 100 07/21/22 08:00 07/21/22 12:11 61 27 H 98 07/21/22 11:30 91 H 31 H 99 07/21/22 10:55 36.4 C L 89 18 117/77 99 07/21/22 06:50 76 20 100 07/21/22 07:06 36.4 C L 88 18 112/82 94 O2 Del Method O2 Flow Rate FiO2 07/21/22 15:35 Oxymask 3 07/21/22 08:00 Oxymask 2 07/21/22 12:11 BiPAP 40 07/21/22 11:30 50 07/21/22 10:55 Oxymask 4 07/21/22 06:50 Oxymask 5 07/21/22 07:06 Oxymask 5
[2022-07-21 18:07] LABS: BUN Creatinine Ratio 39.9 (10-20); Calcium 9.3 mg/dl (8.5-10.1); Creatinine Clr Calc Pharmacy 36.6 ml/min; Est GFR (African American) 36.6 ml/min; Est GFR (Non-African American) 31.6 ml/min; Potassium 4.5 mmol/L (3.5-5.1)
[2022-07-21] MEDS: ATORVASTATIN 40 MG TAB PO SCH (20:20)
[2022-07-21] MEDS: RIVAROXABAN 15 MG TAB PO SCH (20:21)
[2022-07-22] MEDS: IPRATROPIUM BROMIDE NEB SOLN 0.02% 2.5 ML VIAL INH SCH ×4 (00:55→19:43)
[2022-07-22] MEDS: LEVALBUTEROL 1.25MG/0.5ML NEB INH SCH ×4 (00:55→19:43)
[2022-07-22] MEDS ORDERED: PHARMACY GLYCEMIC MGMT CONSULT PRN (07:32)
[2022-07-22 07:47] LABS: Hematocrit (blood only) 29.5 % (40.1-51.0); Hemoglobin 9.2 g/dl (14.0-18.0); Mean Corpuscular Hemoglobin 33.1 pg (25.0-34.0); Mean Corpuscular Hgb Conc 31.2 g/dL (32.0-36.0); Mean Corpuscular Volume 106.1 fL (80.0-100.0); Mean Platelet Volume 10.2 fL (9.4-12.4); Platelet Count 140 K/uL (130-400); RDW Coefficient of Variation 22.6 % (11.5-14.5); RDW Standard Deviation 86.5 fL (36.4-46.3); Red Blood Count 2.78 M/uL (4.63-6.08); White Blood Count 14.29 K/ul (4.8-10.8)
[2022-07-22 08:22] LABS: BUN Creatinine Ratio 40.1 (10-20); Calcium 9.1 mg/dl (8.5-10.1); Creatinine Clr Calc Pharmacy 38.7 ml/min; Est GFR (African American) 39.2 ml/min; Est GFR (Non-African American) 33.8 ml/min; Magnesium 1.9 mg/dl (1.7-2.4); Phosphorus 5.1 mg/dl (2.5-4.9); Potassium 4.1 mmol/L (3.5-5.1)
[2022-07-22] MEDS ORDERED: GLUCOSE 40% GEL 15 GM TUBE PO PRN (08:45)
[2022-07-22] MEDS ORDERED: CARBOHYDRATES FOR HYPOGLYCEMIA PO PRN (08:45)
[2022-07-22] MEDS ORDERED: GLUCAGON FOR INJ 1 MG VIAL SQ PRN (08:45)
[2022-07-22] MEDS ORDERED: DEXTROSE 50% 50 ML SYRINGE IV PRN (08:45)
[2022-07-22] MEDS ORDERED: GLUCOSE 10 TAB/TUBE PO PRN (08:45)
--- NOTE | 2022-07-22 08:55 | Pulmonology Progress Note ---
Date of Service July 22, 2022 Assessment & Plan (1) COPD (chronic obstructive pulmonary disease): (2) ILD (interstitial lung disease): (3) Chronic respiratory failure with hypoxia and hypercapnia: (4) Squamous cell carcinoma: Plan CT chest 06/25/2022 personally reviewed: Diffuse alveolar opacities appreciated bilaterally Small bilateral pleural effusion, little more on the right side Elevated right hemidiaphragm Cardiomegaly Calcified mediastinal hilar lymph nodes Chest x-ray 07/20/2022: Portable film, fair inspired effort, bilateral alveolar opacities appreciated. No significant change compared to 07/10/2022. May consider mild worsening --Chronic hypoxic respiratory failure Multifactorial Underlying ILD, I do not think patient is in exacerbation of ILD Does have history of CHF, continue with diuretics Continue with O2 supplementation to keep oxygen between 88-92% COVID 19 PCR negative Influenza A/B negative BNP 173 Procalcitonin 0.11 S/p bronchoscopy 06/28/2022 which showed possibility of alveolar hemorrhage and patient was started on prednisone at that time. PJP PCR was negative from the [facility] as well as transbronchial biopsies were negative for malignancy at that time Patient was supposed to be on 20mg of Prednisone at the [place] -- Metastatic squamous cell carcinoma [facility] has recently been diagnosed with squamous cell carcinoma and going current chemotherapy last chemotherapy was 06/17/2022 --COPD Not on any inhalers right now I will start the patient on Incruse to be used on a daily basis -- ILD Not on any treatment at home Plan: Checks x-ray from today Continue with prednisone 10 mg for 5 days followed by 5 mg for 5 days and then stop Patient's underlying anxiety might also be playing a role in his tachypnea. Consider adding Lexapro. If any respiratory depression medication is our plan to be given that would recommend BiPAP to report if the patient get hypoxic following administration of such medications. Case discussed with Dr Johnson Please note the above document was generated using voice recognition software. It may contain grammatical, syntax or spelling errors.Any formal questions or concerns about the content, text or information contained within the body of this dictation should be directly addressed to the provider for clarification. Admission and Anticipated Discharge Date Admission Date: July 20, 2022 Subjective Patient seen and examined at bedside. No acute distress. He was saturating 100% on 4 L nasal cannula with heart rate of 90. I was able to go down to 2 L and he was still able to maintain his saturation He denied any chest pain, does complain of cough with clear phlegm. No nausea or vomiting I was told that he did have an episode of tachypnea after he was taken off of BiPAP. He does have thick phlegm. I am not sure if he is able to bring it up. Flutter valve will be beneficial Review of Systems Review of Systems: All systems reviewed & are unremarkable except as noted in Subjective Physical Exam Physical Exam: Constitutional: No acute distress HEENT: EOMI, PERRLA Respiratory system: Decreased air entry bilaterally, no wheeze, no rhonchi, positive crackles bilaterally CVS: S1-S2 positive, no murmurs or gallops Abdomen: Soft, nontender, nondistended, positive bowel sounds x4 Extremities: +2 pulses bilaterally radialis/ dorsalis pedis, no cyanosis, no edema Neuro: Awake alert oriented x3 Psych: Normal mood and affect G/U: No Burr Skin: no rashes, warm and dry Lymphatic: no cervical or axillary lymphadenopathy Results & Data Results & Data ([facility]) Vital Signs (Past 12 Hours) Vital Signs Temp Pulse Pulse Resp BP Pulse Ox Pulse Ox 07/22/22 07:20 94 H 20 100 07/22/22 00:00 108 H 07/21/22 23:04 94 07/22/22 06:34 36.2 C L 106 H 24 110/75 100 07/22/22 02:33 36.8 C 88 24 112/70 95 07/21/22 22:54 101 H 26 H 07/22/22 00:55 26 H 07/22/22 00:55 101 H 26 H 93 07/21/22 22:47 36.5 C 82 20 116/78 100 07/21/22 22:14 O2 Del Method O2 Del Method O2 Flow Rate FiO2 07/22/22 07:20 Oxymask 4 07/22/22 00:00 07/21/22 23:04 BiPAP 07/22/22 06:34 Nasal Cannula 5 07/22/22 02:33 BiPAP 5 07/21/22 22:54 07/22/22 00:55 40 07/22/22 00:55 BiPAP 40 07/21/22 22:47 Oxymask 5 07/21/22 22:14 Oxymask 5 Laboratory Results 07/22/22 07:36 07/22/22 07:36 PG Care Time/CCT Total # of Minutes Spent Total Time Spent with Patient: Total time spent is greater than 50% in coordination of care (as documented) at patient's floor/unit and/or counseling patient: Coding Level of Care Code 05755 Subseq Hosp Care Lvl 2 Diagnoses COPD (chronic obstructive pulmonary disease) J44.9 ILD (interstitial lung disease) J84.9 Chronic respiratory failure with hypoxia and hypercapnia J96.11; J96.12 Squamous cell carcinoma
[2022-07-22] MEDS ORDERED: SULFAMETHOXAZOLE/TRIMETHOPRIM DS 800/160MG TAB PO SCH (09:00)
[2022-07-22] MEDS: INSULIN ASPART PER UNIT SC SCH ×4 (09:30→21:16)
[2022-07-22] MEDS: CHOLECALCIFEROL 1,000 UNITS 25 MCG TAB PO SCH (10:22)
[2022-07-22] MEDS: DOXYCYCLINE HYCLATE 100 MG CAP PO SCH ×2 (10:22→21:15)
[2022-07-22] MEDS: LORATADINE 10 MG TAB PO SCH (10:22)
[2022-07-22] MEDS: DOCUSATE SODIUM 100 MG CAP PO SCH ×2 (10:22→21:16)
[2022-07-22] MEDS: predniSONE 10 MG TABLET PO SCH (10:23)
[2022-07-22] MEDS: CYANOCOBALAMIN (B-12) 500 MCG TABLET PO SCH (10:23)
[2022-07-22] MEDS: METOPROLOL SUCC 50MG EXT REL TAB PO SCH (10:23)
[2022-07-22] MEDS: FOLIC ACID 1 MG TAB PO SCH (10:24)
[2022-07-22] MEDS: allopurinoL 100 MG TAB PO SCH (10:24)
[2022-07-22] MEDS: PANTOprazole 40 MG TAB PO SCH (10:30)
--- NOTE | 2022-07-22 11:51 | Nephrology Progress Note ---
Date of Service July 22, 2022 Assessment & Plan Admission and Anticipated Discharge Date Admission Date: July 20, 2022 Subjective S---not able to give history. at bedside. Less SOB today. PHYSICAL EXAMINATION: GENERAL: Elderly white male who appears to be restless, confused and is in respiratory distress. HEENT: Mucous membrane is moist. NECK: Supple. Jugular venous distention not present. CHEST: Bilateral basal crackles and diminished breath sounds. CARDIOVASCULAR: S1 and S2, regular. ABDOMEN: Soft, nontender. EXTREMITIES: No edema. LABORATORY TEST: K normal. Creat down to 1.9 ASSESSMENT AND PLAN: A 71-year-old male with very advanced extensive lung disease with obstructive and restrictive pattern as well as recently diagnosed lung cancer with liver mets now admitted with increasing shortness of breath. He was found to have hyperkalemia with a potassium of 6.2 and slightly elevated creatinine of 1.85. 1. Acute renal failure: His creatinine is hard to pinpoint. He has had many different episodes of acute renal failure. In fact, during his recent hospitalization also he had acute kidney injury with a peak creatinine of 2.22, but by the time he was discharged, it was down to 1.38. This is not surprising as the patient has chronic hypoxia with chronic hypercarbia, which means he is extremely susceptible to ischemic acute tubular necrosis, which he will be getting quite often. No further workup is needed for the acute renal failure as this is most likely due to acute tubular ischemia. Creat down a bit from yesterday. 2. Hyperkalemia, --K is fine now. He has had multiple ABG, which shows that even on a good day his pCO2 is 75+. At such a high level of baseline hypercapnia, he should have an elevated serum bicarbonate, which is totally physiological compensation and his lifeline. discussed with --hold off on ethacrynic acid today. Most likely will need again tomorrow. Results & Data ([facility]) Vital Signs (Past 12 Hours) Vital Signs Temp Pulse Pulse Resp BP Pulse Ox O2 Del Method 07/22/22 07:20 94 H 20 100 Oxymask 07/22/22 00:00 108 H 07/22/22 06:34 36.2 C L 106 H 24 110/75 100 Nasal Cannula 07/22/22 02:33 36.8 C 88 24 112/70 95 BiPAP 07/22/22 00:55 26 H 07/22/22 00:55 101 H 26 H 93 BiPAP O2 Flow Rate FiO2 07/22/22 07:20 4 07/22/22 00:00 07/22/22 06:34 5 07/22/22 02:33 5 07/22/22 00:55 40 07/22/22 00:55 40
[2022-07-22] MEDS ORDERED: LEVALBUTEROL HCL 1.25 MG/3 ML NEB ONE (12:22)
[2022-07-22] MEDS ORDERED: hydrOXYzine HCl 25 MG TAB PO PRN (12:35)
--- NOTE | 2022-07-22 12:57 | Pharmacy Report ---
Pharmacy Glycemic Short Note 2 - Date of Service July 22, 2022 - Glycemic Short BSG Results (Last 24 hours): 07/21/22 07/22/22 07/22/22 16:42 07:36 08:48 Glucose 246 H 115 H POC Glucose 148 H 07/22/22 12:05 Glucose POC Glucose 130 H OUTPATIENT ANTIDIABETIC REGIMEN: * n/a * HbA1c: pending with AM labs tomorrow ASSESSMENT: * Mr Jaquez is a 71yo M admitted with shortness of breath. * He has had some intermittent hyperglycemia, likely due to steroids. * Novolog added this morning with relatively conservative parameters, to provide correction should pt become hyperglycemic. * Will consider adding NPH for administration along with prednisone is hyperglycemia persists or becomes more frequent. PLAN FOR INPATIENT GLYCEMIC CONTROL: * Basal insulin * not indicated at this time * Bolus insulin * NovoLog per scale ACHS or Q6hrs while NPO * Goal Range: Low 110 mg/dL - High 140 mg/dL * Correction Factor: 30 mg/dL/unit * Nutritional / Prandial insulin per carb ratio of 1 unit per 10 grams CHO consumed
[2022-07-22] MEDS: LORazepam 0.5 MG TAB PO PRN (13:28)
--- NOTE | 2022-07-22 13:48 | XRay Report ---
XR chest 1V portable CLINICAL HISTORY: f/u COMPARISON STUDY: Chest radiograph July 20, 2022. Chest CT June 25, 2022. FINDINGS: Left subclavian pacer/AICD is in place. There is no pneumothorax. Possible trace bilateral pleural effusions. Cardiomediastinal silhouette is stable. Interstitial thickening and patchy bilater al airspace opacities are similar to prior exam. IMPRESSION: No significant change in interstitial thickening, hazy bilateral airspace opacities and trace bilateral pleural effusions. ACT 112: Negative or not required by law. Electronically signed by: Ramiro Ponce M.D. 07/22/2022 1:46 PM
--- NOTE | 2022-07-22 16:58 | Hospitalist Progress Note ---
Date of Service July 22, 2022 Assessment & Plan (1) Acute on chronic respiratory failure with hypoxia and hypercapnia: Plan 71-year-old male with PMH of lung cancer with mets to liver/on home oxygen/receiving chemo [received 6 cycles of chemo, not getting chemo on a regular schedule because of complications, last chemo 06/03], interstitial lung disease, CKD stage III, [place], CHF, PAF, DVT/PE on anticoagulation, CAD, anemia [facility] with complaint of acute shortness of breath and SPO2 went down to 70%. 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 He also completed antibiotic course for possible pneumonia. He seems not using his BiPAP much in the rehab and in hospital. He is being managed for the following: Acute on chronic respiratory failure with hypoxia and hypercapnia, most likely secondary to interstitial lung disease flare Interstitial lung disease flareup Patient presented with shortness of breath and SPO2 70% [see above]. Admitting CXR with no significant change in the reticulonodular interstitial thickening/hazy bilateral airspace opacities and trace bilateral pleural effusions. Patient is noncompliant with BiPAP. Patient has recent diagnosis of sqamous cell lung cancer with metastasis to liver, follows oncology [see above] Patient was discharged on 40 mg of daily prednisone on tapering dose, was on 30 mg of prednisone at presentation. Patient was on Bactrim prophylaxis for being on a steroid. Status post IV steroid in the ED with improvement in his respiratory status. Continue with prednisone with pulmonology recommendation, BiPAP as tolerated, doxycycline and nebulizers [id number] and as needed. Patient requiring 4.5 L oxygen via OxiMax at bedside, reports improvement in his breathing status. c/w prednisone dose 10 mg daily, no need for Bactrim prophylaxis. Doxycycline for total of 5 days. D/w pulm will add lexapro yoel and hydroxyzine prn for anxiety. YELENA over CKD stage III Hyperkalemia Admitting creatinine of 1.85 with potassium of 5.4. Baseline creatinine of around 1.3-1.5 Both likely secondary to Bactrim use, Bactrim discontinued Potassium level WNL, creatinine 1.92. Nephrology on board, appreciate recommendation. Avoid nephrotoxic's. BMP in AM . Low potassium diet. History of PAF/DVT/PE: Patient on Xarelto and metoprolol. DVT prophylaxis: Patient on Xarelto Disposition: PT/OT, CM to assist with DC planning. Patient offered palliative care consult, agreeable. Full code Admission and Anticipated Discharge Date Admission Date: July 20, 2022 Subjective Patient seen and examined at bedside as a follow-up of acute on chronic respiratory failure with hypoxia and hypercapnia most likely secondary to interstitial lung disease flare and hyperkalemia on the background of worsening kidney function and prophylactic Bactrim use. Patient was lying in bed, on 4.5 L oxygen via oxygen mask, denies new acute event overnight, patient used BiPAP most of the night, when he was off of BiPAP in the morning patient was tachypneic and in some respiratory distress per RN which resolved with putting him back on BiPAP. Patient was on oxygen mask at bedside exam. Patient reports eating okay and moving bowels okay. Patient denies increased shortness of breath/headache/dizziness/chest pain/belly pain/other review of symptoms. Patient does look ill and frail. Physical Exam Physical Exam: GENERAL: Alert and oriented x3. NAD, on 4.5 L oxygen via oxygen mask. Ill and frail appearing. HEENT: No pallor, no icterus. Pupils equal, round and reactive to light. Oral mucosa moist. NECK: No JVD, no neck masses. HEART: S1 and S2 heard. irregular rate and rhythm. No murmur, no gallop. RESPIRATORY SYSTEM: Normal AP diameter. No accessory muscle use. No wheezing, b/b crackles. ABDOMEN: Soft, bowel sounds present, nontender, no distention. CENTRAL NERVOUS SYSTEM: No facial droop. Speech is clear. Obeys simple commands. Moves extremities. EXTREMITIES: No edema, no erythema seen. Results & Data Results & Data ([facility]) Vital Signs (Past 12 Hours) Vital Signs Temp Pulse Pulse Resp BP Pulse Ox O2 Del Method 07/22/22 16:17 36.3 C L 96 H 28 H 103/71 100 Oxymask 07/22/22 08:00 BiPAP 07/22/22 12:29 90 26 H 99 Oxymask 07/22/22 11:00 36.8 C 94 H 20 124/63 96 07/22/22 07:20 94 H 20 100 Oxymask 07/22/22 06:34 36.2 C L 106 H 24 110/75 100 Nasal Cannula O2 Flow Rate 07/22/22 16:17 3 07/22/22 08:00 07/22/22 12:29 3 07/22/22 11:00 07/22/22 07:20 4 07/22/22 06:34 5
[2022-07-22] MEDS: ESCITALOPRAM OXALATE 10 MG TAB PO SCH (18:31)
[2022-07-22] MEDS: ATORVASTATIN 40 MG TAB PO SCH (21:15)
[2022-07-22] MEDS: RIVAROXABAN 15 MG TAB PO SCH (21:16)
[2022-07-23] MEDS: LORazepam 0.5 MG TAB PO PRN ×3 (02:13→23:58)
[2022-07-23] MEDS: LEVALBUTEROL 1.25MG/0.5ML NEB INH SCH ×4 (02:46→19:29)
[2022-07-23] MEDS: IPRATROPIUM BROMIDE NEB SOLN 0.02% 2.5 ML VIAL INH SCH ×4 (02:46→19:29)
[2022-07-23 07:28] LABS: Hematocrit (blood only) 29.5 % (40.1-51.0); Hemoglobin 9.1 g/dl (14.0-18.0); Mean Corpuscular Hemoglobin 32.9 pg (25.0-34.0); Mean Corpuscular Hgb Conc 30.8 g/dL (32.0-36.0); Mean Corpuscular Volume 106.5 fL (80.0-100.0); Mean Platelet Volume 10.8 fL (9.4-12.4); Platelet Count 146 K/uL (130-400); RDW Coefficient of Variation 22.5 % (11.5-14.5); RDW Standard Deviation 87.9 fL (36.4-46.3); Red Blood Count 2.77 M/uL (4.63-6.08); White Blood Count 11.93 K/ul (4.8-10.8)
[2022-07-23] MEDS: INSULIN ASPART PER UNIT SC SCH ×4 (07:42→20:19)
[2022-07-23 09:10] LABS: BUN Creatinine Ratio 41.8 (10-20); Calcium 9.2 mg/dl (8.5-10.1); Creatinine Clr Calc Pharmacy 47.1 ml/min; Est GFR (African American) 49.6 ml/min; Est GFR (Non-African American) 42.8 ml/min; Magnesium 1.9 mg/dl (1.7-2.4); Phosphorus 3.3 mg/dl (2.5-4.9)
[2022-07-23] MEDS: PANTOprazole 40 MG TAB PO SCH (09:21)
[2022-07-23] MEDS: METOPROLOL SUCC 50MG EXT REL TAB PO SCH (09:21)
[2022-07-23] MEDS: CYANOCOBALAMIN (B-12) 500 MCG TABLET PO SCH (09:21)
[2022-07-23] MEDS: LORATADINE 10 MG TAB PO SCH (09:24)
[2022-07-23] MEDS: predniSONE 10 MG TABLET PO SCH (09:24)
[2022-07-23] MEDS: ESCITALOPRAM OXALATE 10 MG TAB PO SCH (09:25)
[2022-07-23] MEDS: DOXYCYCLINE HYCLATE 100 MG CAP PO SCH ×2 (09:25→20:23)
[2022-07-23] MEDS: allopurinoL 100 MG TAB PO SCH (09:25)
[2022-07-23] MEDS: DOCUSATE SODIUM 100 MG CAP PO SCH ×2 (09:25→20:23)
[2022-07-23 09:35] LABS: Estimated Average Glucose 131 mg/dl; Hemoglobin A1C 6.2 % (4.5-5.6)
--- NOTE | 2022-07-23 10:36 | Nephrology Progress Note ---
Date of Service July 23, 2022 Assessment & Plan (1) YELENA (acute kidney injury): Plan: Patient with acute kidney injury secondary to ischemic ATN in setting of inte rstitial lung disease or metastatic lung disease. Creatinine is 1.58 today down from 1.9 yesterday. He has metabolic alkalosis. -Continue to hold diuretics (2) Acute on chronic respiratory failure with hypoxia and hypercapnia: Plan: Multifactorial including interstitial lung disease, metastatic lung disease and may be a slight component of volume overload. Continue to titrate oxygen as needed. No need for diuretics at the moment. Admission and Anticipated Discharge Date Admission Date: July 20, 2022 Subjective Seen in follow-up for acute kidney injury. Main complaint is shortness of breath. Patient has interstitial lung disease and also metastatic disease Review of Systems Review of Systems: All other systems were reviewed and negative except as noted in HPI Physical Exam Physical Exam: General exam: Patient in respiratory distress HEENT: Pupils are equal and reactive to light Neck: No JVD, neck is supple trachea is midline Respiratory system: Crackles bilaterally. Gastrointestinal: Abdomen is soft, non distended, non tender, bowel sounds are present CVS: Regular rate and rhythm. No murmurs, rubs or gallops Musculoskeletal: No joint or muscle tenderness Extremities: Non tender, no edema, peripheral pulses are present Neuro: Oriented, no tremors, no focal neurological deficits Skin: No rashes Results & Data ([facility]) Vital Signs (Past 12 Hours) Vital Signs Temp Pulse Resp BP Pulse Ox Pulse Ox O2 Del Method 07/23/22 07:13 103 H 35 H 93 Oxymask 07/23/22 06:27 36.5 C 83 18 102/64 93 BiPAP 07/23/22 03:30 07/23/22 02:55 36.6 C 99 H 20 116/67 98 Oxymask 07/22/22 23:00 98 07/22/22 22:42 36.5 C 79 20 112/64 100 Oxymask O2 Del Method O2 Flow Rate 07/23/22 07:13 4 07/23/22 06:27 07/23/22 03:30 4 07/23/22 02:55 4 07/22/22 23:00 Oxymask 07/22/22 22:42 5 Laboratory Results 07/23/22 07:11 07/23/22 07/23/22 07:11 07:11 WBC 11.93 H RBC 2.77 L MCV 106.5 H MCH 32.9 MCHC 30.8 L RDW Std Deviation 87.9 H RDW Coeff of Yogi 22.5 H Plt Count 146 MPV 10.8 Phosphorus 3.3 D
[2022-07-23] MEDS: FOLIC ACID 1 MG TAB PO SCH (11:55)
[2022-07-23] MEDS: CHOLECALCIFEROL 1,000 UNITS 25 MCG TAB PO SCH (11:55)
[2022-07-23] MEDS ORDERED: NovoLIN-N (NPH) PER UNIT CHARGE SQ ONE (12:00)
--- NOTE | 2022-07-23 12:32 | Pulmonology Progress Note ---
Date of Service July 23, 2022 Assessment & Plan (1) COPD (chronic obstructive pulmonary disease): (2) ILD (interstitial lung disease): (3) Chronic respiratory failure with hypoxia and hypercapnia: (4) Squamous cell carcinoma: Plan CT chest 06/25/2022 personally reviewed: Diffuse alveolar opacities appreciated bilaterally Small bilateral pleural effusion, little more on the right side Elevated right hemidiaphragm Cardiomegaly Calcified mediastinal hilar lymph nodes Chest x-ray 07/20/2022: Portable film, fair inspired effort, bilateral alveolar opacities appreciated. No significant change compared to 07/10/2022. May consider mild worsening --Chronic hypoxic respiratory failure Multifactorial Underlying ILD, I do not think patient is in exacerbation of ILD Does have history of CHF, continue with diuretics Continue with O2 supplementation to keep oxygen between 88-92% COVID 19 PCR negative Influenza A/B negative BNP 173 Procalcitonin 0.11 S/p bronchoscopy 06/28/2022 which showed possibility of alveolar hemorrhage and patient was started on prednisone at that time. PJP PCR was negative from the [facility] as well as transbronchial biopsies were negative for malignancy at that time Patient was supposed to be on 20mg of Prednisone at the [facility] -- Metastatic [facility] has recently been diagnosed with squamous cell carcinoma and going current chemotherapy last chemotherapy was 06/17/2022 --COPD Not on any inhalers right now I will start the patient on Incruse to be used on a daily basis -- ILD Not on any treatment at home Plan: Continue with prednisone 10 mg for 4 days followed by 5 mg for 5 days and then stop Patient is back to his baseline when he comes to his respiratory status. No further recommendation from pulmonary perspective. We will sign off Please call directly with any questions Case discussed with Dr Johnson Please note the above document was generated using voice recognition software. It may contain grammatical, syntax or spelling errors.Any formal questions or concerns about the content, text or information contained within the body of this dictation should be directly addressed to the provider for clarification. Admission and Anticipated Discharge Date Admission Date: July 20, 2022 Subjective Patient seen and examined at bedside. No acute distress, no adverse events overnight He did use his BiPAP overnight He was saturating 100% on 2 L nasal cannula at the time of examination Denies any chest pain, no headache, no nausea vomiting Review of Systems Review of Systems: All systems reviewed & are unremarkable except as noted in Subjective Physical Exam Physical Exam: Constitutional: No acute distress HEENT: EOMI, PERRLA Respiratory system: Decreased air entry bilaterally, no wheeze, no rhonchi, positive crackles bilaterally CVS: S1-S2 positive, no murmurs or gallops Abdomen: Soft, nontender, nondistended, positive bowel sounds x4 Extremities: +2 pulses bilaterally radialis/ dorsalis pedis, no cyanosis, no edema Neuro: Awake alert oriented x3 Psych: Normal mood and affect G/U: No Burr Skin: no rashes, warm and dry Lymphatic: no cervical or axillary lymphadenopathy Results & Data Results & Data ([facility]) Vital Signs (Past 12 Hours) Vital Signs Temp Pulse Pulse Resp BP Pulse Ox O2 Del Method 07/23/22 12:20 84 22 97 Nasal Cannula 07/23/22 12:14 36.2 C L 74 20 102/70 99 Nasal Cannula 07/23/22 06:15 97 H 07/23/22 08:00 Oxymask 07/23/22 07:13 103 H 35 H 93 Oxymask 07/23/22 06:27 36.5 C 83 18 102/64 93 BiPAP 07/23/22 03:30 07/23/22 02:55 36.6 C 99 H 20 116/67 98 Oxymask O2 Flow Rate 07/23/22 12:20 2 07/23/22 12:14 2 07/23/22 06:15 07/23/22 08:00 3 07/23/22 07:13 4 07/23/22 06:27 07/23/22 03:30 4 07/23/22 02:55 4 Laboratory Results 07/23/22 07:11 07/23/22 07:11 PG Care Time/CCT Total # of Minutes Spent Total Time Spent with Patient: Total time spent is greater than 50% in coordination of care (as documented) at patient's floor/unit and/or counseling patient: Coding Level of Care Code 15694 Subseq Hosp Care Lvl 2 Diagnoses COPD (chronic obstructive pulmonary disease) J44.9 ILD (interstitial lung disease) J84.9 Chronic respiratory failure with hypoxia and hypercapnia J96.11; J96.12 Squamous cell carcinoma
--- NOTE | 2022-07-23 17:51 | Hospitalist Progress Note ---
Date of Service July 23, 2022 Assessment & Plan (1) Acute on chronic respiratory failure with hypoxia and hypercapnia: Plan 71-year-old male with PMH of lung cancer with mets to liver/on home oxygen/receiving chemo [received 6 cycles of chemo, not getting chemo on a regular schedule because of complications, last chemo 06/03], interstitial lung disease, CKD stage III, LAWRENCE, CHF, PAF, DVT/PE on anticoagulation, CAD, anemia [facility] with complaint of acute shortness of breath and SPO2 went down to 70%. 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 He also completed antibiotic course for possible pneumonia. He seems not using his BiPAP much in the rehab and in hospital. He is being managed for the following: Acute on chronic respiratory failure with hypoxia and hypercapnia, most likely secondary to interstitial lung disease flare Interstitial lung disease flareup Patient presented with shortness of breath and SPO2 70% [see above]. Admitting CXR with no significant change in the reticulonodular interstitial thickening/hazy bilateral airspace opacities and trace bilateral pleural effusions. Patient is noncompliant with BiPAP. Patient has recent diagnosis of sqamous cell lung cancer with metastasis to liver, follows oncology [see above] Patient was discharged on 40 mg of daily prednisone on tapering dose, was on 30 mg of prednisone at presentation. Patient was on Bactrim prophylaxis for being on a steroid. Status post IV steroid in the ED with improvement in his respiratory status. Continue with prednisone with pulmonology recommendation, BiPAP as tolerated, doxycycline and nebulizers [id number] and as needed. Patient requiring 2 L oxygen via OxiMax at bedside, reports improvement in his breathing status. c/w prednisone dose 10 mg daily, no need for Bactrim prophylaxis. Doxycycline for total of 5 days. D/w pulm a/w lexapro yoel for anxiety. Pt take ativan prn at home. Hydroxyzine on hold now. YELENA over CKD stage III Hyperkalemia Admitting creatinine of 1.85 with potassium of 5.4. Baseline creatinine of around 1.3-1.5 Both likely secondary to Bactrim use, Bactrim discontinued Potassium level WNL, creatinine 1.92. Nephrology on board, appreciate recommendation. Avoid nephrotoxic's. BMP in AM. Low potassium diet. History of PAF/DVT/PE: Patient on Xarelto and metoprolol. DVT prophylaxis: Patient on Xarelto Disposition: PT/OT, CM to assist with DC planning. Patient offered palliative care consult, agreeable. Expect DC w/ PT/OT recs in 1-2 days. Full code Admission and Anticipated Discharge Date Admission Date: July 20, 2022 Subjective Patient seen and examined at bedside as a follow-up of acute on chronic respiratory failure with hypoxia and hypercapnia most likely secondary to interstitial lung disease flare and hyperkalemia on the background of worsening kidney function and prophylactic Bactrim use. Patient was lying in bed, on 2 L oxygen via oxygen mask, denies new acute event overnight, patient used BiPAP on and off over the night. Patient was on oxygen mask at bedside exam. Patient reports eating okay/similar to his baseline which is low and moving bowels okay. Patient denies increased shortness of breath/headache/dizziness/chest pain/belly pain/other review of symptoms. Patient does look ill and frail. Physical Exam Physical Exam: GENERAL: Alert and oriented x3. NAD, on 2 L oxygen via oxygen mask. Ill and frail appearing. HEENT: No pallor, no icterus. Pupils equal, round and reactive to light. Oral mucosa moist. NECK: No JVD, no neck masses. HEART: S1 and S2 heard. irregular rate and rhythm. No murmur, no gallop. RESPIRATORY SYSTEM: Normal AP diameter. No accessory muscle use. No wheezing, b/b crackles. ABDOMEN: Soft, bowel sounds present, nontender, no distention. CENTRAL NERVOUS SYSTEM: No facial droop. Speech is clear. Obeys simple commands. Moves extremities. EXTREMITIES: No edema, no erythema seen. Results & Data Results & Data ([facility]) Vital Signs (Past 12 Hours) Vital Signs Temp Pulse Pulse Resp BP Pulse Ox O2 Del Method 07/23/22 14:30 81 07/23/22 15:52 36.6 C 78 26 H 104/68 94 BiPAP 07/23/22 14:00 28 H 93 BiPAP 07/23/22 12:20 84 22 97 Nasal Cannula 07/23/22 12:14 36.2 C L 74 20 102/70 99 Nasal Cannula 07/23/22 06:15 97 H 07/23/22 08:00 Oxymask 07/23/22 07:13 103 H 35 H 93 Oxymask 07/23/22 06:27 36.5 C 83 18 102/64 93 BiPAP O2 Flow Rate 07/23/22 14:30 07/23/22 15:52 2 07/23/22 14:00 7 07/23/22 12:20 2 07/23/22 12:14 2 07/23/22 06:15 07/23/22 08:00 3 07/23/22 07:13 4 07/23/22 06:27
[2022-07-23] MEDS: ATORVASTATIN 40 MG TAB PO SCH (20:23)
[2022-07-23] MEDS: RIVAROXABAN 15 MG TAB PO SCH (20:23)
[2022-07-24] MEDS: IPRATROPIUM BROMIDE NEB SOLN 0.02% 2.5 ML VIAL INH SCH ×4 (00:20→19:57)
[2022-07-24] MEDS: LEVALBUTEROL 1.25MG/0.5ML NEB INH SCH ×4 (00:20→19:57)
[2022-07-24] MEDS ORDERED: MAGNESIUM SULFATE / D5W 1 GM/100 ML BAG IV ONE (01:59)
[2022-07-24 02:38] LABS: Basophils # (auto) 0.01 K/uL (0-0.2); Basophils % (auto) 0.1 %; Eosinophils # (auto) 0.13 K/uL (0-0.50); Eosinophils % (auto) 1.3 %; Hematocrit (blood only) 28.2 % (40.1-51.0); Hemoglobin 8.8 g/dl (14.0-18.0); Immature Granulocytes # (auto) 0.07 K/uL (0.00-0.02); Immature Granulocytes % (auto) 0.7 %; Lymphocytes # (auto) 0.39 K/uL (1.2-3.4); Mean Corpuscular Hemoglobin 33.2 pg (25.0-34.0); Mean Corpuscular Hgb Conc 31.2 g/dL (32.0-36.0); Mean Corpuscular Volume 106.4 fL (80.0-100.0); Mean Platelet Volume 9.8 fL (9.4-12.4); Monocytes # (auto) 0.81 K/uL (0.24-0.82); Monocytes % (auto) 8.2 %; Neutrophils # (auto) 8.46 K/uL (1.4-6.5); Neutrophils % (auto) 85.7 %; Platelet Count 137 K/uL (130-400); RDW Coefficient of Variation 22.6 % (11.5-14.5); RDW Standard Deviation 86.3 fL (36.4-46.3); Red Blood Count 2.65 M/uL (4.63-6.08); White Blood Count 9.87 K/ul (4.8-10.8)
[2022-07-24 03:14] LABS: Anisocytosis Present
[2022-07-24] MEDS ORDERED: Nursing to Pharmacy Communication SCH (03:30)
[2022-07-24 03:38] LABS: BUN Creatinine Ratio 48.8 (10-20); Blood Urea Nitrogen 61 mg/dl (6-23); Calcium 9.1 mg/dl (8.5-10.1); Carbon Dioxide > 45 mmol/L (21-32); Chloride 90 mmol/L (98-107); Creatinine Clr Calc Pharmacy 59.5 ml/min; Est GFR (African American) 65.8 ml/min; Est GFR (Non-African American) 56.8 ml/min; Glucose 91 mg/dl (70-99(Fasting)); Potassium 3.7 mmol/L (3.5-5.1); Sodium 138 mmol/L (136-145)
[2022-07-24] MEDS ORDERED: POTASSIUM CHLORIDE PWD 20 MEQ PACK PO STA (03:42)
[2022-07-24] MEDS: METOPROLOL SUCC 50MG EXT REL TAB PO SCH (04:06)
[2022-07-24 04:46] LABS: Allen Test Pos (Pos); Base Excess ABG 22.6 mEq/L (-9-1.8); HCO3 ABG 50 mmol/L (19-24); Oxygen Saturation ABG 87.1 % (90-95); PCO2 ABG 66 mmHg (35-46); PO2 ABG 51 mmHg (80-95); pH ABG 7.49 (7.35-7.45)
[2022-07-24] MEDS: INSULIN ASPART PER UNIT SC SCH ×4 (08:49→22:58)
[2022-07-24] MEDS: predniSONE 10 MG TABLET PO SCH (08:56)
[2022-07-24] MEDS: ESCITALOPRAM OXALATE 10 MG TAB PO SCH (08:56)
[2022-07-24] MEDS: DOXYCYCLINE HYCLATE 100 MG CAP PO SCH ×2 (08:58→22:56)
[2022-07-24] MEDS: PANTOprazole 40 MG TAB PO SCH (08:58)
[2022-07-24] MEDS: CYANOCOBALAMIN (B-12) 500 MCG TABLET PO SCH (08:58)
[2022-07-24] MEDS: LORATADINE 10 MG TAB PO SCH (08:58)
[2022-07-24] MEDS: allopurinoL 100 MG TAB PO SCH (08:58)
[2022-07-24] MEDS: DOCUSATE SODIUM 100 MG CAP PO SCH ×2 (08:59→22:56)
[2022-07-24] MEDS: LORazepam 0.5 MG TAB PO PRN (09:00)
[2022-07-24] MEDS ORDERED: NovoLIN-N (NPH) PER UNIT CHARGE SQ SCH (09:00)
[2022-07-24] MEDS ORDERED: acetaZOLAMIDE 500 MG in SYRINGE 0 ML IV ONE (10:00)
--- NOTE | 2022-07-24 11:06 | Nephrology Progress Note ---
Date of Service July 24, 2022 Assessment & Plan (1) YELENA (acute kidney injury): Plan: Patient with acute kidney injury secondary to ischemic ATN in setting of inte rstitial lung disease or metastatic lung disease. Creatinine is 1.25 from 1.58 yesterday. He has metabolic alkalosis. -Continue to hold diuretics -We will give Diamox 500 mg one-time -We will give potassium chloride 40 mEq one-time (2) Acute on chronic respiratory failure with hypoxia and hypercapnia: Plan: Multifactorial including interstitial lung disease, metastatic lung disease and may be a slight component of volume overload. Continue to titrate oxygen as needed. No need for diuretics at the moment. Admission and Anticipated Discharge Date Admission Date: July 20, 2022 Subjective Seen for YELENA and metabolic alkalosis. Patient remains hypoxic. He is now on BiPAP. No new complaints Review of Systems Review of Systems: All other systems were reviewed and negative except as noted in HPI Physical Exam Physical Exam: General exam: Patient in comfortable on BiPAP HEENT: Pupils are equal and reactive to light Neck: No JVD, neck is supple trachea is midline Respiratory system: Crackles bilaterally. Gastrointestinal: Abdomen is soft, non distended, non tender, bowel sounds are present CVS: Regular rate and rhythm. No murmurs, rubs or gallops Musculoskeletal: No joint or muscle tenderness Extremities: Non tender, no edema, peripheral pulses are present Neuro: Oriented, no tremors, no focal neurological deficits Skin: No rashes Results & Data ([facility]) Vital Signs (Past 12 Hours) Vital Signs Temp Pulse Pulse Resp BP Pulse Ox O2 Del Method 07/24/22 09:23 87 32 H 96 BiPAP 07/24/22 08:00 72 20 95 Oxymask 07/24/22 06:33 36.4 C L 96 H 18 119/82 98 BiPAP 07/24/22 04:26 81 40 H 89 L 07/24/22 02:12 36.6 C 96 H 18 123/82 97 Oxymask 07/23/22 23:40 69 35 H 93 07/24/22 00:20 78 22 97 Oxymask 07/23/22 23:06 95 H O2 Flow Rate 07/24/22 09:23 5 07/24/22 08:00 3 07/24/22 06:33 07/24/22 04:26 6 07/24/22 02:12 1 07/23/22 23:40 2 07/24/22 00:20 1 07/23/22 23:06 Laboratory Results 07/24/22 02:27 07/24/22 02:27 WBC 9.87 RBC 2.65 L MCV 106.4 H MCH 33.2 MCHC 31.2 L RDW Std Deviation 86.3 H RDW Coeff of Yogi 22.6 H Plt Count 137 MPV 9.8
[2022-07-24] MEDS ORDERED: LEVALBUTEROL HCL 1.25 MG/3 ML NEB ONE (12:45)
[2022-07-24] MEDS: FOLIC ACID 1 MG TAB PO SCH (13:06)
[2022-07-24] MEDS: CHOLECALCIFEROL 1,000 UNITS 25 MCG TAB PO SCH (13:06)
--- NOTE | 2022-07-24 16:31 | Hospitalist Progress Note ---
Date of Service July 24, 2022 Assessment & Plan (1) Acute on chronic respiratory failure with hypoxia and hypercapnia: Plan 71-year-old male with PMH of lung cancer with mets to liver/on home oxygen/receiving chemo [received 6 cycles of chemo, not getting chemo on a regular schedule because of complications, last chemo 06/03], interstitial lung disease, CKD stage III, LAWRENCE, CHF, PAF, DVT/PE on anticoagulation, CAD, anemia [facility] with complaint of acute shortness of breath and SPO2 went down to 70%. 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 He also completed antibiotic course for possible pneumonia. He seems not using his BiPAP much in the rehab and in hospital. He is being managed for the following: Acute on chronic respiratory failure with hypoxia and hypercapnia, most likely secondary to interstitial lung disease flare Interstitial lung disease flareup Patient presented with shortness of breath and SPO2 70% [see above]. Admitting CXR with no significant change in the reticulonodular interstitial thickening/hazy bilateral airspace opacities and trace bilateral pleural effusions. Patient is noncompliant with BiPAP. Patient has recent diagnosis of sqamous cell lung cancer with metastasis to liver, follows oncology [see above] Patient was discharged on 40 mg of daily prednisone on tapering dose, was on 30 mg of prednisone at presentation. Patient was on Bactrim prophylaxis for being on a steroid. Status post IV steroid in the ED with improvement in his respiratory status. Continue with prednisone with pulmonology recommendation, BiPAP as tolerated, doxycycline and nebulizers [id number] and as needed. Patient requiring BiPAP at bedside, reports no increase shortness of breath. c/w prednisone dose 10 mg daily to be tapered down to 5 Mg daily and then stop, no need for Bactrim prophylaxis. Doxycycline for total of 5 days. c/w lexapro yoel for anxiety. Pt take ativan prn at home. YELENA over CKD stage III Hyperkalemia Admitting creatinine of 1.85 with potassium of 5.4. Baseline creatinine of around 1.3-1.5 Both likely secondary to Bactrim use, Bactrim discontinued Both resolved Now has metabolic alkalosis, nephrology on board, appreciate recommendation. Avoid nephrotoxic's. BMP in AM. History of PAF/DVT/PE: Patient on Xarelto and metoprolol. DVT prophylaxis: Patient on Xarelto Disposition: PT/OT, CM to assist with DC planning. Patient offered palliative care consult, agreeable. Full code Admission and Anticipated Discharge Date Admission Date: July 20, 2022 Subjective Patient seen and examined at bedside as a follow-up of acute on chronic respiratory failure with hypoxia and hypercapnia most likely secondary to interstitial lung disease flare and hyperkalemia on the background of worsening kidney function and prophylactic Bactrim use. 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 Patient becomes anxious when in BiPAP requiring as needed Ativan doses. Patient appears somewhat confused today, oriented x2. Was more confused to the RN. Patient reports eating okay/similar to his baseline which is low and is moving bowels okay. Patient denies increased shortness of breath/headache/dizziness/chest pain/belly pain/other review of symptoms. Patient does look weak, ill and frail. Upon telemetry review, patient had 4 beats of V. tach followed by 8 beats of V. tach within few seconds. Patient was not symptomatic. Physical Exam Physical Exam: GENERAL: Alert and oriented x3. NAD, on BiPAP. Ill and frail appearing. HEENT: No pallor, no icterus. Pupils equal, round and reactive to light. Oral mucosa moist. NECK: No JVD, no neck masses. HEART: S1 and S2 heard. irregular rate and rhythm. No murmur, no gallop. RESPIRATORY SYSTEM: Normal AP diameter. No accessory muscle use. No wheezing, b/b crackles. ABDOMEN: Soft, bowel sounds present, nontender, no distention. CENTRAL NERVOUS SYSTEM: No facial droop. Speech is clear. Obeys simple commands. Moves extremities. EXTREMITIES: No edema, no erythema seen. Results & Data Results & Data ([facility]) Vital Signs (Past 12 Hours) Vital Signs Temp Pulse Pulse Resp BP Pulse Ox Pulse Ox 07/24/22 15:35 36.4 C L 85 24 118/73 99 07/24/22 08:00 07/24/22 14:21 104 H 07/24/22 06:15 81 07/24/22 14:51 26 H 95 07/24/22 14:00 26 H 95 07/24/22 12:30 28 H 94 07/24/22 14:46 26 H 95 07/24/22 14:15 26 H 97 07/24/22 14:03 98 07/24/22 13:09 36.5 C 102 H 28 H 105/69 99 07/24/22 12:56 99 H 18 99 07/24/22 09:23 87 32 H 96 07/24/22 08:00 72 20 95 07/24/22 06:33 36.4 C L 96 H 18 119/82 98 07/24/22 04:26 81 40 H 89 L Pulse Ox Pulse Ox Pulse Ox O2 Del Method O2 Flow Rate O2 Flow Rate O2 Flow Rate 07/24/22 15:35 Oxymask 3 07/24/22 08:00 Oxymask 3 07/24/22 14:21 07/24/22 06:15 07/24/22 14:51 Oxymask 3 07/24/22 14:00 07/24/22 12:30 Oxymask 3 07/24/22 14:46 BiPAP 4 07/24/22 14:15 BiPAP 4 07/24/22 14:03 96 98 93 3 3 07/24/22 13:09 Nasal Cannula 3 07/24/22 12:56 Oxymask 3 07/24/22 09:23 BiPAP 5 07/24/22 08:00 Oxymask 3 07/24/22 06:33 BiPAP 07/24/22 04:26 6 O2 Flow Rate O2 Flow Rate 07/24/22 15:35 07/24/22 08:00 07/24/22 14:21 07/24/22 06:15 07/24/22 14:51 07/24/22 14:00 07/24/22 12:30 07/24/22 14:46 07/24/22 14:15 07/24/22 14:03 3 3 07/24/22 13:09 07/24/22 12:56 07/24/22 09:23 07/24/22 08:00 07/24/22 06:33 07/24/22 04:26
[2022-07-24 20:50] LABS: Base Excess ABG 17.6 mEq/L (-9-1.8); HCO3 ABG 47 mmol/L (19-24); Oxygen Saturation ABG 94.6 % (90-95); PCO2 ABG 82 mmHg (35-46); PO2 ABG 65 mmHg (80-95); pH ABG 7.37 (7.35-7.45)
[2022-07-24 20:59] LABS: Allen Test POS (Pos)
[2022-07-24] MEDS: ATORVASTATIN 40 MG TAB PO SCH (22:56)
[2022-07-24] MEDS: RIVAROXABAN 15 MG TAB PO SCH (22:57)
[2022-07-24 23:48] LABS: Base Excess ABG 22.6 mEq/L (-9-1.8); HCO3 ABG 53 mmol/L (19-24); Oxygen Saturation ABG 99.6 % (90-95); PCO2 ABG 85 mmHg (35-46); PO2 ABG 114 mmHg (80-95)
[2022-07-25] MEDS: IPRATROPIUM BROMIDE NEB SOLN 0.02% 2.5 ML VIAL INH SCH ×4 (00:32→20:25)
[2022-07-25] MEDS: LEVALBUTEROL 1.25MG/0.5ML NEB INH SCH ×4 (00:32→20:26)
--- NOTE | 2022-07-25 00:44 | Communication Note ---
Date of Service: July 25, 2022 Patient lethargic overnight. Patient noncompliant with BiPAP as per RN. PCO2 80s. AP Hypercapnic respiratory failure Benzo possibly contributory Encourage BiPAP use Recheck ABG Hold lorazepam for now.
[2022-07-25 01:19] LABS: Allen Test Pos (Pos)
--- NOTE | 2022-07-25 07:05 | Nephrology Progress Note ---
Date of Service July 25, 2022 Assessment & Plan (1) YELENA (acute kidney injury): Plan: acute kidney injury secondary to ischemic ATN in setting of interstitial lung disease/metastatic lung disease. Creatinine 1.3 on 07/24 from 1.58 07/23; today's labs pending. He has severe metabolic alkalosis. -Continue to hold diuretics -f/u today's labs as part of eval for further Diamox 500 mg +/- potassium chloride 40 mEq one-time doses >> after review of labs, neither of these given (2) Acute on chronic respiratory failure with hypoxia and hypercapnia: Plan: Multifactorial including interstitial lung disease, metastatic lung disease and may be a slight component of volume overload. Continue to titrate oxygen as needed. No need for diuretics at the moment. Admission and Anticipated Discharge Date Admission Date: July 20, 2022 Subjective no interval events. pt exhausted after all night on bipap; denies uncontrolled musculoskeletal pain or worse sob Review of Systems Review of Systems: All systems reviewed & are unremarkable except as noted in Subjective Physical Exam Constitutional: well developed, + frail appearing, comfortable and + lethargic; no acute distress Eyes: EOM intact bilaterally ENMT: Ears: no external ear abnormality Nose: no external nose abnormality Mouth: + dry oral mucous membranes Neck: no nuchal rigidity Respiratory: normal respiratory effort Auscultation: + diminished lung sounds Cardiovascular: Rate/Rhythm: + irregularly irregular Extremities: no edema Gastrointestinal (Abdomen): Inspection/Auscultation: normal bowel sounds Percussion/Palpation: abdomen soft; abdomen nontender Musculoskeletal: Extremities: + abnormal strength Skin: no rashes, warm and dry 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, 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, no tremor Results & Data ([facility]) Vital Signs (Past 12 Hours) Vital Signs Temp Pulse Pulse Resp BP BP Pulse Ox 07/25/22 04:02 99 H 33 H 94 07/25/22 03:00 36.5 C 81 20 94/62 L 93 07/25/22 01:15 100 H 34 H 93 07/25/22 01:15 100 H 12 93 07/24/22 20:23 101 H 27 H 94 07/24/22 19:50 07/24/22 23:00 36.4 C L 83 22 97/71 L 99 07/24/22 19:40 99 H 17 98 09/25/22 19:18 36.0 C L 102 H 14 109/74 99 O2 Del Method O2 Flow Rate 07/25/22 04:02 3 07/25/22 03:00 BiPAP 07/25/22 01:15 3 07/25/22 01:15 BiPAP 3 07/24/22 20:23 3 07/24/22 19:50 Oxymask 3 07/24/22 23:00 Nasal Cannula 1 07/24/22 19:40 Oxymask 3 07/24/22 19:18 Oxymask 3 Laboratory Results 07/25/22 06:53 07/25/22 06:53
[2022-07-25 07:06] LABS: Hematocrit (blood only) 28.3 % (40.1-51.0); Hemoglobin 8.9 g/dl (14.0-18.0)
[2022-07-25 07:07] LABS: Base Excess ABG 16.6 mEq/L (-9-1.8); HCO3 ABG 45 mmol/L (19-24); Oxygen Saturation ABG 98.5 % (90-95); PCO2 ABG 69 mmHg (35-46); PO2 ABG 79 mmHg (80-95); pH ABG 7.42 (7.35-7.45)
[2022-07-25 07:08] LABS: Allen Test Pos (Pos)
[2022-07-25 07:51] LABS: BUN Creatinine Ratio 43.2 (10-20); Calcium 9.5 mg/dl (8.5-10.1); Creatinine Clr Calc Pharmacy 50.9 ml/min; Est GFR (African American) 54.5 ml/min; Magnesium 1.9 mg/dl (1.7-2.4); Potassium 3.9 mmol/L (3.5-5.1)
[2022-07-25] MEDS: DOCUSATE SODIUM 100 MG CAP PO SCH ×2 (08:38→21:39)
[2022-07-25] MEDS: INSULIN ASPART PER UNIT SC SCH ×4 (08:38→21:38)
[2022-07-25] MEDS: DOXYCYCLINE HYCLATE 100 MG CAP PO SCH ×2 (08:38→21:39)
[2022-07-25] MEDS: ESCITALOPRAM OXALATE 10 MG TAB PO SCH (08:39)
[2022-07-25] MEDS: predniSONE 10 MG TABLET PO SCH (08:39)
[2022-07-25] MEDS: CYANOCOBALAMIN (B-12) 500 MCG TABLET PO SCH (08:40)
[2022-07-25] MEDS: LORATADINE 10 MG TAB PO SCH (08:40)
[2022-07-25] MEDS: allopurinoL 100 MG TAB PO SCH (08:40)
[2022-07-25] MEDS: METOPROLOL SUCC 50MG EXT REL TAB PO SCH (08:40)
[2022-07-25] MEDS: PANTOprazole 40 MG TAB PO SCH (08:40)
[2022-07-25] MEDS: INSULIN HUMAN NPH SC SCH (08:51)
--- NOTE | 2022-07-25 10:23 | Pharmacy Report ---
Pharmacy Glycemic Short Note 2 - Date of Service July 25, 2022 - Glycemic Short BSG Results (Last 24 hours): 07/24/22 07/24/22 07/24/22 11:26 16:33 19:51 Glucose POC Glucose 130 H 187 H 159 H 07/24/22 07/25/22 07/25/22 22:58 06:53 07:27 Glucose 112 H POC Glucose 121 H 108 H OUTPATIENT ANTIDIABETIC REGIMEN: * None - pre-diabetic * HbA1c = 6.2% (07/23/22) ASSESSMENT: 07/25: * Mauro received 15 units of insulin Monday (9 basal + 6 bolus) and 13 units of insulin Monday (10 basal + 3 bolus). * BSGs ranged 102-208 mg/dL. * Fasting BSG today was 108 mg/dL - well controlled. * Prednisone 10 mg PO daily for today and tomorrow then decreasing to 5 mg PO daily on 07/27/22. * Will order NPH for today and tomorrow then d/c. Not expecting patient to require NPH on 5 mg of Prednisone. * No change to Novolog. 07/22: * Mr Jaquez is a 71yo M admitted with shortness of breath. * He has had some intermittent hyperglycemia, likely due to steroids. * Novolog added this morning with relatively conservative parameters, to provide correction should pt become hyperglycemic. * Will consider adding NPH for administration along with prednisone is hyperglycemia persists or becomes more frequent. PLAN FOR INPATIENT GLYCEMIC CONTROL: * Basal insulin * NPH 10 units SC daily x 2 - to be given with Prednisone 10 mg * Bolus insulin * NovoLog per scale ACHS or Q6hrs while NPO * Goal Range: Low 110 mg/dL - High 140 mg/dL * Correction Factor: 30 mg/dL/unit * Nutritional / Prandial insulin per carb ratio of 1 unit per 10 grams CHO consumed
[2022-07-25] MEDS: CHOLECALCIFEROL 1,000 UNITS 25 MCG TAB PO SCH (11:47)
[2022-07-25] MEDS: FOLIC ACID 1 MG TAB PO SCH (11:47)
--- NOTE | 2022-07-25 13:10 | Palliative Care Consultation ---
Date of Consultation July 25, 2022 Assessment & Plan (1) Anxiety: Mrs. 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 She feels that he has been having some PTSD with his prolonged hospitalizations. He had been receiving ativan and vistaril earlier in his stay. These were stopped due to lethargy. It is not clear whether he is having any hallucinations. His has not described any and he is not able to report that. Family is concerned that with discontinuation of ativan, he is suffering and less likely to be compliant with bipap. (2) SOB (shortness of breath): with hypoxic, hypercapnic respiratory failure. He has tolerated bipap at times. He denies feeling short of breath. (3) Constipation: Last significant BM four days ago, though he does have decreased po intake. Abdomen is benign. He has prn senna ordered but has not had it. (4) Palliative care encounter: Unfortunately, Luis's mental status is impaired to the point where he is not able to participate in goals of care discussion. I met with his , Guillermina, and also with his sister, Anuja. Guillermina tells me that he does not have an advance directive. He has always said that he would want to be kept alive as long as possible. I asked her what things were important to him and provide enjoyment for him. 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 He had been looking forward to going hunting this fall. I asked Guillermina if this were as good as he could be, did she think that would be acceptable quality of life for him. She was unsure about this. We discussed code status and likelihood that resuscitation would not be successful in restoring his prior level of function. I ensured her that change of code status would not necessarily mean that we would withdraw any current care. 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 They would like to discuss this further together before making any decisions. Guillermina asked about him being able to go home. I explained that he would need 24/7 nursing care if he were stable enough for discharge which could not be done at home. We discussed the option of hospice care and shift of focus to symptom management and comfort. Neither Guillermina or Anuja feel that is the option that he would want at this time. (5) Acute on chronic respiratory failure with hypoxia: (6) Acute decompensated heart failure: (7) ILD (interstitial lung disease): (8) Acute on chronic renal failure: (9) Lung cancer: History of Present Illness Reason for Consultation: goals of care Requesting Physician: Dr. 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 He has had six chemotherapy treatments and his tells me that he had complications after pretty much each treatment. He was hospitalized from May to mid June with hypoxic respiratory failure complicated by hypercapnia and volume overload. He has also had YELENA on CKD requiring careful balance of diuretics. He had gone to [facility] for rehab but was readmitted after a few days with shortness of breath. His creatinine has been variable but he has significant metabolic alkalosis and hypoxic, hypercapnic respiratory failure. He has been on bipap but doesn't tolerate it well. He is awake at the time of visit but confused and not able to discuss goals of care. He denies feeling short of breath though he is using accessory muscles. He denies pain. Allergies Allergy/AdvReac Type Severity Reaction Status Date / Time diphtheria toxoid,fluid Allergy Severe CONVULSIONS--HORSE Verified 07/20/22 21:22 SERUM BASE tetanus toxoid, adsorbed Allergy Severe CONVULSIONS--HORSE Verified 07/20/22 21:22 SERUM BASE Home Medications Medication Instructions Recorded Confirmed Type acetaminophen 325 mg tablet 650 mg PO Q4 PRN Pain 07/20/22 07/20/22 History (Tylenol) albuterol sulfate 90 mcg/actuation 1 inh inhalation Q4 PRN Wheezing 07/20/22 07/20/22 History aerosol inhaler (Proventil HFA) allopurinol 100 mg tablet 100 mg PO QAM 07/20/22 07/20/22 History atorvastatin 40 mg tablet 40 mg PO HS 07/20/22 07/20/22 History benzonatate 100 mg capsule 200 mg PO TID PRN Cough 07/20/22 07/20/22 History cholecalciferol (vitamin D3) 50 50 mcg PO DAILY 07/20/22 07/20/22 History mcg (2,000 unit) tablet (Vitamin D3) cyanocobalamin (vitamin B-12) 1,000 mcg PO DAILY 07/20/22 07/20/22 History 1,000 mcg tablet docusate sodium 100 mg tablet 100 mg PO BID 07/20/22 07/20/22 History ethacrynic acid 25 mg tablet 25 mg PO DAILY 07/20/22 07/20/22 History (Edecrin) folic acid 1 mg tablet 1 mg PO DAILY 07/20/22 07/20/22 History ipratropium 0.5 mg-albuterol 3 mg 3 ml inhalation Q6H PRN Shortness 07/20/22 07/20/22 History (2.5 mg base)/3 mL nebulization Of Breath soln loratadine 10 mg tablet 10 mg PO DAILY 07/20/22 07/20/22 History lorazepam 0.5 mg tablet 0.5 mg PO Q8 PRN Anxiety 07/20/22 07/20/22 History magnesium oxide 400 mg (241.3 mg 400 mg PO DAILY 07/20/22 07/20/22 History magnesium) tablet metoprolol succinate 50 mg 50 mg PO DAILY 07/20/22 07/20/22 History tablet,extended release 24 hr ondansetron HCl 4 mg tablet 4 mg PO Q4 PRN Nausea 07/20/22 07/20/22 History pantoprazole 20 mg tablet,delayed 20 mg PO QAM 07/20/22 07/20/22 History release polyethylene glycol 3350 17 gram 17 g PO DAILY PRN Constipation 07/20/22 07/20/22 History oral powder packet (Miralax) prednisone 10 mg tablet 30 mg PO .DAILY UD 07/20/22 07/20/22 History prednisone 20 mg tablet 20 mg PO .DAILY UD 07/20/22 07/20/22 History rivaroxaban 15 mg tablet (Xarelto) 15 mg PO HS 07/20/22 07/20/22 History sennosides 8.6 mg-docusate sodium 1 tab-cap PO DAILY PRN Constipation 07/20/22 07/20/22 History 50 mg tablet (Senna-S) sulfamethoxazole 800 1 tab PO MOWEFR 07/20/22 07/20/22 History mg-trimethoprim 160 mg tablet Patient History Medical History Acute GI bleeding Atrial fibrillation dx 2016 - follows w/ Dr. Trejo Chronic systolic heart failure CKD (chronic kidney disease), stage III Congestive heart failure Deep vein thrombosis RLE - 2016 dx while hospitalized w/ pneumonia Duodenal ulcer Hearing deficit BL MARSHALL Hematoma of left lower extremity Osteoarthritis Pneumonia Pulmonary embolism 2016 - dx while hospitalized w/ pneumonia - on xarelto Surgical History History of appendectomy History of cardiac catheterization 2016 - [place] - no stents History of cardioversion 11/08/2016 History of carpal tunnel release of both wrists History of cataract surgery History of colonoscopy History of esophagogastroduodenoscopy (EGD) History of evacuation of hematoma LLE History of shoulder surgery Left 2004 History of tonsillectomy Presence of combination internal cardiac defibrillator (ICD) and pacemaker placed 2017 - [employer] - last checked 1 year ago - follows w/ dr. yeh Family History Mother Diabetes Grandfather (Paternal) No problems noted. Father Lymphoma Grandfather (Maternal) Myocardial infarction Other No family history of adverse response to anesthesia Denies family history of Ovarian cancer Prostate cancer Heart disease Breast cancer Colorectal cancer Social History Smoking Status: Former smoker Tobacco Type: Cigarettes Age Quit Using Tobacco: 53; Cigarettes Per Day: 1 pack a day; Second Hand Exposure: No; Do You Dip or Chew Tobacco: No; Tobacco Cessation Education Requested by Patient: No Hx Alcohol Use: No Hx Substance Use: No Preferred Language: Trinidadian Communication Ability: Effective Visual Impairment: Limited Hearing Ability: Use of Hearing Aid Metal Burnisher Required: No Beliefs That Will Affect Care: None marital status: Current Living Situation: Rehab Current Living Situation Comment: [facility] current occupational status: retired 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 How many Children do You have: 0 Other Information That Helps Us Care for You: No Feels Safe at Home: Yes Safety Concerns: Feels Safe At This Time Childhood Exposure to Second-Hand Smoke: Yes (dad did ) caffeine: Yes (cup of coffee in morning ) Dental Care, Regularly: No Physical Activity Frequency: Does not Exercise Seatbelt Use: always Sunscreen Use: No (doesn't go out in sun ) Assistive Devices: Bedside Commode, Cane, Walker and Wheelchair Review of Systems Review of Systems: ESAS Pain 0/3 Dyspnea 0/3 Nausea 0/3 Fatigue 2/3 Anxiety 2/3 Drowsiness 0/3 PPS 30% Physical Exam Constitutional: + altered mental status; no acute distress Respiratory: + uses accessory muscles Gastrointestinal (Abdomen): soft, nontender LBM 07/21 Skin: warm and dry Neurologic: Speech / Cognition: + abnormal cognition Psychiatric: Affect: + anxious affect Results & Data ([facility]) Vital Signs (Past 12 Hours) Vital Signs Temp Pulse Pulse Resp BP BP Pulse Ox 07/25/22 12:51 87 16 100 07/25/22 11:53 97.3 F L 95 H 22 120/70 93 07/25/22 08:30 151/77 H 07/25/22 10:11 88 07/25/22 09:24 07/25/22 08:00 97.7 F 98 H 18 102/63 97 07/25/22 07:13 92 H 20 96 07/25/22 04:02 99 H 33 H 94 07/25/22 03:00 97.7 F 81 20 94/62 L 93 07/25/22 01:15 100 H 34 H 93 07/25/22 01:15 100 H 12 93 O2 Del Method O2 Flow Rate 07/25/22 12:51 Nasal Cannula 1 07/25/22 11:53 Nasal Cannula 1 07/25/22 08:30 07/25/22 10:11 07/25/22 09:24 Nasal Cannula 1 07/25/22 08:00 07/25/22 07:13 BiPAP 4 07/25/22 04:02 3 07/25/22 03:00 BiPAP 07/25/22 01:15 3 07/25/22 01:15 BiPAP 3 PG Care Time/CCT Total # of Minutes Spent Total Time Spent: 65 Total Time Spent with Patient: Total time spent is greater than 50% in coordination of care (as documented) at patient's floor/unit and/or counseling patient: symptom management, goals of care, code status, prognosis, hospice, family education and support Coding Level of Care Code 66899 Initial Inpt Care Lvl 2 Diagnoses Anxiety F41.9 SOB (shortness of breath) R06.02 Constipation K59.00 Palliative care encounter Z51.5 Acute on chronic respiratory failure with hypoxia J96.21 Acute decompensated heart failure I50.9 ILD (interstitial lung disease) J84.9 Acute on chronic renal failure N17.9; N18.9 Lung cancer C34.90
--- NOTE | 2022-07-25 13:39 | Hospitalist Progress Note ---
Date of Service July 25, 2022 Assessment & Plan (1) Acute on chronic respiratory failure with hypoxia and hypercapnia: Plan 71-year-old male with PMH of lung cancer with mets to liver/on home oxygen/receiving chemo [received 6 cycles of chemo, not getting chemo on a regular schedule because of complications, last chemo 06/03], interstitial lung disease, CKD stage III, [place], CHF, PAF, DVT/PE on anticoagulation, CAD, anemia [facility] with complaint of acute shortness of breath and SPO2 went down to 70%. 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 He also completed antibiotic course for possible pneumonia. He seems not using his BiPAP much in the rehab and in hospital. He is being managed for the following: Acute on chronic respiratory failure with hypoxia and hypercapnia, most likely secondary to interstitial lung disease flare Patient presented with shortness of breath and SPO2 70% [see above]. Admitting CXR with no significant change in the reticulonodular interstitial thickening/hazy bilateral airspace opacities and trace bilateral pleural effusions. Patient is noncompliant with BiPAP. Patient has recent diagnosis of sqamous cell lung cancer with metastasis to liver, follows oncology Patient was discharged on 40 mg of daily prednisone on tapering dose, was on 30 mg of prednisone at presentation. Patient was on Bactrim prophylaxis for being on a steroid. Status post IV steroid in the ED with improvement in his respiratory status. Continue with prednisone with pulmonology recommendation, BiPAP as tolerated, doxycycline and nebulizers [id number] and as needed. Patient requiring BiPAP at bedside, reports no increase shortness of breath. c/w prednisone dose 10 mg daily to be tapered down to 5 Mg daily and then stop, no need for Bactrim prophylaxis. Doxycycline for total of 5 days. c/w lexapro yoel for anxiety. Pt take ativan prn at home. YELENA over CKD stage III Hyperkalemia Admitting creatinine of 1.85 with potassium of 5.4. Baseline creatinine of around 1.3-1.5 Both likely secondary to Bactrim use, Bactrim discontinued Both resolved Now has metabolic alkalosis, nephrology on board, patient given a dose of Diamox. Goals of care: Discussed goals of care and CODE STATUS with his and sister at bedside. They acknowledge that he has decompensated slowly over the course of the last hospitalization and rehab. They agree that chest compression and intubation would not be beneficial and will prolong his suffering. CODE STATUS is changed to DNR DNI. They would like to continue the ongoing medical treatment and intervention. Palliative care on board. History of PAF/DVT/PE: Patient on Xarelto and metoprolol. DVT prophylaxis: Patient on Xarelto Disposition: PT/OT, CM to assist with DC planning. Full code Admission and Anticipated Discharge Date Admission Date: July 20, 2022 Subjective Patient seen and examined at bedside. He is lethargic; awakens to voice but does not follow any commands. ABG overnight showed compensated respiratory acidosis; patient was placed on BiPAP. Telemetry shows a fibrillation with ventricular rate in 80s to 90s. Review of Systems Review of Systems: Unobtainable due to cognitive status Physical Exam Physical Exam: GENERAL: Lethargic, awakens to voice. HEENT: No pallor, no icterus. Pupils equal, round and reactive to light. Oral mucosa moist. NECK: No JVD, no neck masses. HEART: S1 and S2 heard. irregular rate and rhythm. No murmur, no gallop. RESPIRATORY SYSTEM: Bilateral crackles heard at lower lung prater ABDOMEN: Soft, bowel sounds present, nontender, no distention. CENTRAL NERVOUS SYSTEM: Lethargic and awakens to voice. EXTREMITIES: No edema, no erythema seen. Results & Data Results & Data ([facility]) Vital Signs (Past 12 Hours) Vital Signs Temp Pulse Pulse Resp BP BP Pulse Ox 07/25/22 12:51 87 16 100 07/25/22 11:53 36.3 C L 95 H 22 120/70 93 07/25/22 08:30 151/77 H 07/25/22 10:11 88 07/25/22 09:24 07/25/22 08:00 36.5 C 98 H 18 102/63 97 07/25/22 07:13 92 H 20 96 07/25/22 04:02 99 H 33 H 94 07/25/22 03:00 36.5 C 81 20 94/62 L 93 O2 Del Method O2 Flow Rate 07/25/22 12:51 Nasal Cannula 1 07/25/22 11:53 Nasal Cannula 1 07/25/22 08:30 07/25/22 10:11 07/25/22 09:24 Nasal Cannula 1 07/25/22 08:00 07/25/22 07:13 BiPAP 4 07/25/22 04:02 3 07/25/22 03:00 BiPAP Laboratory Results Laboratory Results WBC 9.87 K/ul (4.8-10.8) 07/24/22 02:27 RBC 2.65 M/uL (4.63-6.08) L 07/24/22 02:27 Hgb 8.9 g/dl (14.0-18.0) L 07/25/22 06:53 Hct 28.3 % (40.1-51.0) L 07/25/22 06:53 MCV 106.4 fL (80.0-100.0) H 07/24/22 02:27 MCH 33.2 pg (25.0-34.0) 07/24/22 02:27 MCHC 31.2 g/dL (32.0-36.0) L 07/24/22 02:27 RDW Std Deviation 86.3 fL (36.4-46.3) H 07/24/22 02:27 RDW Coeff of Yogi 22.6 % (11.5-14.5) H 07/24/22 02:27 Plt Count 137 K/uL (130-400) 07/24/22 02:27 MPV 9.8 fL (9.4-12.4) 07/24/22 02:27 Immature Gran % (Auto) 0.7 % 07/24/22 02:27 Neut % (Auto) 85.7 % 07/24/22 02:27 Lymph % (Auto) 4.0 % 07/24/22 02:27 [place] % (Auto) 8.2 % 07/24/22 02:27 Eos % (Auto) 1.3 % 07/24/22 02:27 Baso % (Auto) 0.1 % 07/24/22 02:27 Neut # (Auto) 8.46 K/uL (1.4-6.5) H 07/24/22 02:27 Lymph # (Auto) 0.39 K/uL (1.2-3.4) L 07/24/22 02:27 [place] # (Auto) 0.81 K/uL (0.24-0.82) 07/24/22 02:27 Eos # (Auto) 0.13 K/uL (0-0.50) 07/24/22 02:27 Baso # (Auto) 0.01 K/uL (0-0.2) 07/24/22 02:27 Immature Gran # (Auto) 0.07 K/uL (0.00-0.02) H 07/24/22 02:27 Polychromasia 1+ 07/21/22 05:21 Basophilic Stippling 1+ 07/21/22 05:21 Anisocytosis Present 07/24/22 02:27 Stomatocytes 1+ 07/21/22 05:21 ABG pH 7.42 (7.35-7.45) 07/25/22 06:53 ABG pCO2 69 mmHg (35-46) H 07/25/22 06:53 ABG pO2 79 mmHg (80-95) L 07/25/22 06:53 ABG HCO3 45 mmol/L (19-24) H 07/25/22 06:53 ABG O2 Saturation 98.5 % (90-95) H 07/25/22 06:53 ABG Base Excess 16.6 mEq/L (-9-1.8) H 07/25/22 06:53 Nehemias Test Pos (Pos) 07/25/22 06:53 VBG pH 7.32 (7.36-7.41) L 07/20/22 17:18 VBG pCO2 93 mmHg (38-50) H 07/20/22 17:18 VBG pO2 29 mmHg 07/20/22 17:18 VBG HCO3 48 mmol/L 07/20/22 17:18 VBG O2 Saturation < 60.0 % 07/20/22 17:18 VBG Base Excess 16.9 mEq/L 07/20/22 17:18 Oxygen Given 1 07/25/22 06:53 Sodium 138 mmol/L (136-145) 07/25/22 06:53 Potassium 3.9 mmol/L (3.5-5.1) 07/25/22 06:53 Chloride 92 mmol/L (98-107) L 07/25/22 06:53 Carbon Dioxide 40 mmol/L (21-32) H 07/25/22 06:53 Anion Gap 6 (3-11) 07/25/22 06:53 BUN 63 mg/dl (6-23) H 07/25/22 06:53 Creatinine 1.46 mg/dl (0.6-1.4) H 07/25/22 06:53 Est Cr Clr Drug Dosing 50.9 ml/min 07/25/22 06:53 Est GFR ( Amer) 54.5 ml/min 07/25/22 06:53 Est GFR (Non-Af Amer) 47.0 ml/min 07/25/22 06:53 BUN/Creatinine Ratio 43.2 (10-20) H 07/25/22 06:53 Glucose 112 mg/dl (70-99(Fasting)) H 07/25/22 06:53 POC Glucose 184 mg/dl (70-99) H 07/25/22 11:28 Estimat Average Glucose 131 mg/dl 07/23/22 07:11 Hemoglobin A1c 6.2 % (4.5-5.6) H 07/23/22 07:11 Lactate 1.1 mmol/L (0.4-2.0) 07/20/22 17:18 Calcium 9.5 mg/dl (8.5-10.1) 07/25/22 06:53 Phosphorus 3.3 mg/dl (2.5-4.9) D 07/23/22 07:11 Magnesium 1.9 mg/dl (1.7-2.4) 07/25/22 06:53 Total Bilirubin 0.8 mg/dl (0.2-1.0) 07/20/22 15:45 AST 26 U/L (13-39) 07/20/22 15:45 ALT 49 U/L (7-52) 07/20/22 15:45 Alkaline Phosphatase 169 U/L (34-104) H 07/20/22 15:45 Ammonia 46.0 umol/L (18-72) 07/24/22 20:25 Total Creatine Kinase 17 U/L (30-223) L 07/21/22 10:55 Troponin I High Sens 42.5 pg/ml (0-20) H 07/21/22 16:42 B-Natriuretic Peptide 173 pg/ml (0-100) H 07/20/22 15:45 Total Protein 7.7 gm/dl (6.0-8.3) 07/20/22 15:45 Albumin 3.8 gm/dl (3.4-5.0) 07/20/22 15:45 Globulin 3.9 gm/dl (2.5-4.0) 07/20/22 15:45 Albumin/Globulin Ratio 1.0 (0.9-2) 07/20/22 15:45 Lipase 35 U/L (11-82) 07/20/22 15:45 Procalcitonin 0.11 ng/ml (0-0.5) 07/20/22 15:45 Nasal Screen MRSA (PCR) Negative (Negative) 07/21/22 17:12 SARS-CoV-2 (PCR) NEGATIVE (Negative) 07/20/22 16:12 Influenza Type A (PCR) Negative (Neg) 07/20/22 16:12 Influenza Type B (PCR) Negative (Neg) 07/20/22 16:12 RSV (RT-PCR) Negative (Neg) 07/20/22 16:12 Impressions Chest X-Ray 07/22/22 11:45 XR chest 1V portable CLINICAL HISTORY: f/u COMPARISON STUDY: Chest radiograph July 20, 2022. Chest CT June 25, 2022. FINDINGS: Left subclavian pacer/AICD is in place. There is no pneumothorax. Possible trace bilateral pleural effusions. Cardiomediastinal silhouette is stable. Interstitial thickening and patchy bilateral airspace opacities are similar to prior exam. IMPRESSION: No significant change in interstitial thickening, hazy bilateral airspace opacities and trace bilateral pleural effusions. ACT 112: Negative or not required by law. Electronically signed by: Ramiro Ponce M.D. 07/22/2022 1:46 PM
[2022-07-25] MEDS ORDERED: LEVALBUTEROL HCL 1.25 MG/3 ML NEB ONE (20:21)
[2022-07-25] MEDS: ATORVASTATIN 40 MG TAB PO SCH (21:39)
[2022-07-25] MEDS: RIVAROXABAN 15 MG TAB PO SCH (21:39)
[2022-07-26] MEDS: LEVALBUTEROL 1.25MG/0.5ML NEB INH SCH ×3 (00:13→19:33)
[2022-07-26] MEDS: IPRATROPIUM BROMIDE NEB SOLN 0.02% 2.5 ML VIAL INH SCH ×4 (00:13→19:33)
[2022-07-26] MEDS ORDERED: LEVALBUTEROL HCL 1.25 MG/3 ML NEB ONE (06:16)
[2022-07-26 06:52] LABS: Basophils # (auto) 0.01 K/uL (0-0.2); Basophils % (auto) 0.1 %; Eosinophils # (auto) 0.13 K/uL (0-0.50); Eosinophils % (auto) 1.3 %; Hematocrit (blood only) 30.2 % (40.1-51.0); Hemoglobin 9.4 g/dl (14.0-18.0); Immature Granulocytes # (auto) 0.11 K/uL (0.00-0.02); Immature Granulocytes % (auto) 1.1 %; Lymphocytes # (auto) 0.43 K/uL (1.2-3.4); Lymphocytes % (auto) 4.3 %; Mean Corpuscular Hemoglobin 32.8 pg (25.0-34.0); Mean Corpuscular Hgb Conc 31.1 g/dL (32.0-36.0); Mean Corpuscular Volume 105.2 fL (80.0-100.0); Mean Platelet Volume 10.7 fL (9.4-12.4); Monocytes % (auto) 6.9 %; Neutrophils # (auto) 8.73 K/uL (1.4-6.5); Neutrophils % (auto) 86.3 %; Platelet Count 161 K/uL (130-400); RDW Coefficient of Variation 21.9 % (11.5-14.5); RDW Standard Deviation 83.9 fL (36.4-46.3); Red Blood Count 2.87 M/uL (4.63-6.08); White Blood Count 10.11 K/ul (4.8-10.8)
[2022-07-26 07:14] LABS: Anisocytosis Present; Basophilic Stippling 1+; Polychromasia 1+
[2022-07-26 07:31] LABS: BUN Creatinine Ratio 47.2 (10-20); Calcium 9.8 mg/dl (8.5-10.1); Creatinine Clr Calc Pharmacy 46.8 ml/min; Est GFR (African American) 49.2 ml/min; Est GFR (Non-African American) 42.4 ml/min; Potassium 4.2 mmol/L (3.5-5.1)
--- NOTE | 2022-07-26 07:52 | Nephrology Progress Note ---
Date of Service July 26, 2022 Assessment & Plan (1) Disorder of acid-base balance: Plan: chronic respiratory acidosis d/t his chronic respiratory failure and therefore with chronic and significant compensatory metabolic alkalosis >in general if diuretics are used, recommend sparing use and use of ethacrynic acid rather than lasix or other loop diuretics unless C02< high 30s Will sign off; pls call if ? (2) YELENA (acute kidney injury): Plan: resolved Stage 1 acute kidney injury on CKD 3 secondary to ischemic ATN in setting of interstitial lung disease/metastatic lung disease. baseline cre atinine mid ones at this point -- his renal function has fluctuated considerably w/ admissions. Creatinine 1.3 on 07/24 else generally plateau'd mid ones 07/23- 07/26, though admittedly w/slight uptrend in creatinine. actual GFR likely much worse than low 40s given his chronic illness, prolonged hospital stays. He has severe metabolic alkalosis. -Continue to hold diuretics -daily bmp for now (3) Acute on chronic respiratory failure with hypoxia and hypercapnia: Plan: Multifactorial including interstitial lung disease, metastatic lung disease and may be a slight component of volume overload. Continue to titrate oxygen as needed. No need for diuretics at the moment. Admission and Anticipated Discharge Date Admission Date: July 20, 2022 Subjective palliative discussion reviewed; pt too tired/ exhausted to give ROS beyond saying no pain, no worse sob Review of Systems Review of Systems: Other (pt fatigue) Physical Exam Constitutional: well developed, + frail appearing, comfortable and + lethargic; no acute distress Eyes: EOM intact bilaterally ENMT: Ears: no external ear abnormality Nose: no external nose abnormality Mouth: + dry oral mucous membranes Neck: no nuchal rigidity Respiratory: normal respiratory effort Auscultation: + diminished lung sounds Cardiovascular: Rate/Rhythm: + irregularly irregular Extremities: no edema Gastrointestinal (Abdomen): Inspection/Auscultation: normal bowel sounds Percussion/Palpation: abdomen soft; abdomen nontender Musculoskeletal: Extremities: + abnormal strength Skin: no rashes, warm and dry Results & Data ([facility]) Vital Signs (Past 12 Hours) Vital Signs Temp Pulse Pulse Resp BP BP Pulse Ox 07/26/22 07:15 36.3 C L 86 30 H 133/82 97 07/26/22 06:48 72 30 H 95 07/26/22 06:19 93 H 24 100 09/26/22 23:00 85 07/26/22 03:16 36.3 C L 87 18 94/60 L 100 07/26/22 00:13 90 24 93 07/25/22 20:30 07/25/22 22:50 83 28 H 99 07/25/22 22:41 36.3 C L 103 H 18 124/80 100 07/25/22 20:26 85 16 100 O2 Del Method O2 Flow Rate 07/26/22 07:15 Nasal Cannula 3 07/26/22 06:48 1 07/26/22 06:19 Oxymask 1 07/25/22 23:00 07/26/22 03:16 Oxymask 2 07/26/22 00:13 BiPAP 5 07/25/22 20:30 Oxymask 1 07/25/22 22:50 2 07/25/22 22:41 Nasal Cannula 3 07/25/22 20:26 Oxymask 3 Laboratory Results 07/26/22 06:35 07/26/22 06:35
[2022-07-26] MEDS: INSULIN ASPART PER UNIT SC SCH ×4 (07:54→21:36)
[2022-07-26] MEDS: DOCUSATE SODIUM 100 MG CAP PO SCH ×2 (08:15→21:57)
[2022-07-26] MEDS: DOXYCYCLINE HYCLATE 100 MG CAP PO SCH (08:15)
[2022-07-26] MEDS: allopurinoL 100 MG TAB PO SCH (08:15)
[2022-07-26] MEDS: PANTOprazole 40 MG TAB PO SCH (08:16)
[2022-07-26] MEDS: LORATADINE 10 MG TAB PO SCH (08:16)
[2022-07-26] MEDS: predniSONE 10 MG TABLET PO SCH (08:16)
[2022-07-26] MEDS: CYANOCOBALAMIN (B-12) 500 MCG TABLET PO SCH (08:16)
[2022-07-26] MEDS: METOPROLOL SUCC 50MG EXT REL TAB PO SCH (08:16)
[2022-07-26] MEDS: ESCITALOPRAM OXALATE 10 MG TAB PO SCH (08:16)
[2022-07-26] MEDS: INSULIN HUMAN NPH SC SCH (08:18)
[2022-07-26] MEDS: FOLIC ACID 1 MG TAB PO SCH (12:28)
[2022-07-26] MEDS: CHOLECALCIFEROL 1,000 UNITS 25 MCG TAB PO SCH (12:28)
--- NOTE | 2022-07-26 12:49 | Hospitalist Progress Note ---
Date of Service July 26, 2022 Assessment & Plan (1) Acute on chronic respiratory failure with hypoxia and hypercapnia: Plan 71-year-old male with PMH of lung cancer with mets to liver/on home oxygen/receiving chemo [received 6 cycles of chemo, not getting chemo on a regular schedule because of complications, last chemo 06/03], interstitial lung disease, CKD stage III, LAWRENCE, CHF, PAF, DVT/PE on anticoagulation, CAD, anemia [facility] with complaint of acute shortness of breath and SPO2 went down to 70%. 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 He also completed antibiotic course for possible pneumonia. He seems not using his BiPAP much in the rehab and in hospital. He is being managed for the following: Acute on chronic respiratory failure with hypoxia and hypercapnia, most likely secondary to interstitial lung disease flare Patient presented with shortness of breath and SPO2 70% [see above]. Admitting CXR with no significant change in the reticulonodular interstitial thickening/hazy bilateral airspace opacities and trace bilateral pleural effusions. Patient is noncompliant with BiPAP. Patient has recent diagnosis of sqamous cell lung cancer with metastasis to liver, follows oncology Patient was discharged on 40 mg of daily prednisone on tapering dose, was on 30 mg of prednisone at presentation. Patient was on Bactrim prophylaxis for being on a steroid. Continue with prednisone with pulmonology recommendation, BiPAP as tolerated, doxycycline and nebulizers [id number] and as needed. Patient requiring BiPAP at bedside, reports no increase shortness of breath. c/w prednisone dose 10 mg daily to be tapered down to 5 Mg daily and then stop, no need for Bactrim prophylaxis. Status post 5 days of doxycycline. Currently on 5 mg of prednisone. c/w lexapro yoel for anxiety. Pt take ativan prn at home. YELENA over CKD stage III Hyperkalemia Admitting creatinine of 1.85 with potassium of 5.4. Baseline creatinine of around 1.3-1.5 Both likely secondary to Bactrim use, Bactrim discontinued Both resolved Now has metabolic alkalosis, nephrology on board, patient given a dose of Diamox. Continues to have high HCO3 given his CO2 retention Goals of care: Discussed goals of care and CODE STATUS with his and sister at bedside on 07/25 They acknowledge that he has decompensated slowly over the course of the last hospitalization and rehab. They agree that chest compression and intubation would not be beneficial and will prolong his suffering. CODE STATUS is changed to DNR DNI. They would like to continue the ongoing medical treatment and intervention. Palliative care on board. History of PAF/DVT/PE: Patient on Xarelto and metoprolol. DVT prophylaxis: Patient on Xarelto Disposition: PT/OT, CM to assist with DC planning. Burr in place since admission; plan to remove Burr after patient is more awake and do trial of void. Full code Admission and Anticipated Discharge Date Admission Date: July 20, 2022 Subjective Patient is more awake today. He is comfortable; not in any respiratory distress. He was able to tolerate BiPAP on and off last night. Review of Systems Review of Systems: All systems reviewed & are unremarkable except as noted in Subjective Physical Exam Physical Exam: GENERAL: Awake and more interactive. Oriented to self and place. HEENT: No pallor, no icterus. Pupils equal, round and reactive to light. Oral mucosa moist. NECK: No JVD, no neck masses. HEART: S1 and S2 heard. irregular rate and rhythm. No murmur, no gallop. RESPIRATORY SYSTEM: Bilateral crackles heard at lower lung prater ABDOMEN: Soft, bowel sounds present, nontender, no distention. CENTRAL NERVOUS SYSTEM: Awake, no focal neurological deficit. EXTREMITIES: No edema, no erythema seen. Results & Data Results & Data ([facility]) Vital Signs (Past 12 Hours) Vital Signs Temp Pulse Pulse Resp BP Pulse Ox O2 Del Method 07/26/22 11:03 36.3 C L 79 22 106/71 98 Nasal Cannula 07/26/22 09:22 Nasal Cannula 07/26/22 07:47 96 H 07/26/22 07:15 36.3 C L 86 30 H 133/82 97 Nasal Cannula 07/26/22 06:48 72 30 H 95 07/26/22 06:19 93 H 24 100 Oxymask 07/26/22 03:16 36.3 C L 87 18 94/60 L 100 Oxymask O2 Flow Rate 07/26/22 11:03 2 07/26/22 09:22 1 07/26/22 07:47 07/26/22 07:15 3 07/26/22 06:48 1 07/26/22 06:19 1 07/26/22 03:16 2 Laboratory Results Laboratory Results WBC 10.11 K/ul (4.8-10.8) 07/26/22 06:35 RBC 2.87 M/uL (4.63-6.08) L 07/26/22 06:35 Hgb 9.4 g/dl (14.0-18.0) L 07/26/22 06:35 Hct 30.2 % (40.1-51.0) L 07/26/22 06:35 MCV 105.2 fL (80.0-100.0) H 07/26/22 06:35 MCH 32.8 pg (25.0-34.0) 07/26/22 06:35 MCHC 31.1 g/dL (32.0-36.0) L 07/26/22 06:35 RDW Std Deviation 83.9 fL (36.4-46.3) H 07/26/22 06:35 RDW Coeff of Yogi 21.9 % (11.5-14.5) H 07/26/22 06:35 Plt Count 161 K/uL (130-400) 07/26/22 06:35 MPV 10.7 fL (9.4-12.4) 07/26/22 06:35 Immature Gran % (Auto) 1.1 % 07/26/22 06:35 Neut % (Auto) 86.3 % 07/26/22 06:35 Lymph % (Auto) 4.3 % 07/26/22 06:35 [place] % (Auto) 6.9 % 07/26/22 06:35 Eos % (Auto) 1.3 % 07/26/22 06:35 Baso % (Auto) 0.1 % 07/26/22 06:35 Neut # (Auto) 8.73 K/uL (1.4-6.5) H 07/26/22 06:35 Lymph # (Auto) 0.43 K/uL (1.2-3.4) L 07/26/22 06:35 [place] # (Auto) 0.70 K/uL (0.24-0.82) 07/26/22 06:35 Eos # (Auto) 0.13 K/uL (0-0.50) 07/26/22 06:35 Baso # (Auto) 0.01 K/uL (0-0.2) 07/26/22 06:35 Immature Gran # (Auto) 0.11 K/uL (0.00-0.02) H 07/26/22 06:35 Polychromasia 1+ 07/26/22 06:35 Basophilic Stippling 1+ 07/26/22 06:35 Anisocytosis Present 07/26/22 06:35 Stomatocytes 1+ 07/21/22 05:21 ABG pH 7.42 (7.35-7.45) 07/25/22 06:53 ABG pCO2 69 mmHg (35-46) H 07/25/22 06:53 ABG pO2 79 mmHg (80-95) L 07/25/22 06:53 ABG HCO3 45 mmol/L (19-24) H 07/25/22 06:53 ABG O2 Saturation 98.5 % (90-95) H 07/25/22 06:53 ABG Base Excess 16.6 mEq/L (-9-1.8) H 07/25/22 06:53 Nehemias Test Pos (Pos) 07/25/22 06:53 VBG pH 7.32 (7.36-7.41) L 07/20/22 17:18 VBG pCO2 93 mmHg (38-50) H 07/20/22 17:18 VBG pO2 29 mmHg 07/20/22 17:18 VBG HCO3 48 mmol/L 07/20/22 17:18 VBG O2 Saturation < 60.0 % 07/20/22 17:18 VBG Base Excess 16.9 mEq/L 07/20/22 17:18 Oxygen Given 1 07/25/22 06:53 Sodium 139 mmol/L (136-145) 07/26/22 06:35 Potassium 4.2 mmol/L (3.5-5.1) 07/26/22 06:35 Chloride 93 mmol/L (98-107) L 07/26/22 06:35 Carbon Dioxide 42 mmol/L (21-32) H* 07/26/22 06:35 Anion Gap 4 (3-11) 07/26/22 06:35 BUN 75 mg/dl (6-23) H 07/26/22 06:35 Creatinine 1.59 mg/dl (0.6-1.4) H 07/26/22 06:35 Est Cr Clr Drug Dosing 46.8 ml/min 07/26/22 06:35 Est GFR ( Amer) 49.2 ml/min 07/26/22 06:35 Est GFR (Non-Af Amer) 42.4 ml/min 07/26/22 06:35 BUN/Creatinine Ratio 47.2 (10-20) H 07/26/22 06:35 Glucose 73 mg/dl (70-99(Fasting)) 07/26/22 06:35 POC Glucose 144 mg/dl (70-99) H 07/26/22 11:02 Estimat Average Glucose 131 mg/dl 07/23/22 07:11 Hemoglobin A1c 6.2 % (4.5-5.6) H 07/23/22 07:11 Lactate 1.1 mmol/L (0.4-2.0) 07/20/22 17:18 Calcium 9.8 mg/dl (8.5-10.1) 07/26/22 06:35 Phosphorus 3.3 mg/dl (2.5-4.9) D 07/23/22 07:11 Magnesium 1.9 mg/dl (1.7-2.4) 07/25/22 06:53 Total Bilirubin 0.8 mg/dl (0.2-1.0) 07/20/22 15:45 AST 26 U/L (13-39) 07/20/22 15:45 ALT 49 U/L (7-52) 07/20/22 15:45 Alkaline Phosphatase 169 U/L (34-104) H 07/20/22 15:45 Ammonia 46.0 umol/L (18-72) 07/24/22 20:25 Total Creatine Kinase 17 U/L (30-223) L 07/21/22 10:55 Troponin I High Sens 42.5 pg/ml (0-20) H 07/21/22 16:42 B-Natriuretic Peptide 173 pg/ml (0-100) H 07/20/22 15:45 Total Protein 7.7 gm/dl (6.0-8.3) 07/20/22 15:45 Albumin 3.8 gm/dl (3.4-5.0) 07/20/22 15:45 Globulin 3.9 gm/dl (2.5-4.0) 07/20/22 15:45 Albumin/Globulin Ratio 1.0 (0.9-2) 07/20/22 15:45 Lipase 35 U/L (11-82) 07/20/22 15:45 Procalcitonin 0.11 ng/ml (0-0.5) 07/20/22 15:45 Nasal Screen MRSA (PCR) Negative (Negative) 07/21/22 17:12 SARS-CoV-2 (PCR) NEGATIVE (Negative) 07/20/22 16:12 Influenza Type A (PCR) Negative (Neg) 07/20/22 16:12 Influenza Type B (PCR) Negative (Neg) 07/20/22 16:12 RSV (RT-PCR) Negative (Neg) 07/20/22 16:12 Impressions Chest X-Ray 07/22/22 11:45 XR chest 1V portable CLINICAL HISTORY: f/u COMPARISON STUDY: Chest radiograph July 20, 2022. Chest CT June 25, 2022. FINDINGS: Left subclavian pacer/AICD is in place. There is no pneumothorax. Possible trace bilateral pleural effusions. Cardiomediastinal silhouette is stable. Interstitial thickening and patchy bilateral airspace opacities are similar to prior exam. IMPRESSION: No significant change in interstitial thickening, hazy bilateral airspace opacities and trace bilateral pleural effusions. ACT 112: Negative or not required by law. Electronically signed by: Ramiro Ponce M.D. 07/22/2022 1:46 PM
[2022-07-26] MEDS: RIVAROXABAN 15 MG TAB PO SCH (21:57)
[2022-07-26] MEDS: ATORVASTATIN 40 MG TAB PO SCH (21:57)
[2022-07-26] MEDS ORDERED: hydrOXYzine HCl 10 MG TAB PO STA (23:12)
[2022-07-27] MEDS: LEVALBUTEROL 1.25MG/0.5ML NEB INH SCH ×5 (00:14→19:29)
[2022-07-27] MEDS: IPRATROPIUM BROMIDE NEB SOLN 0.02% 2.5 ML VIAL INH SCH ×4 (00:14→19:08)
--- NOTE | 2022-07-27 04:10 | Communication Note ---
Date of Service: July 27, 2022 Patient refusing to wear BiPAP as per RN. Patient sister (Ms. Anuja Carl), updated of developments over the phone. Informed of possible extreme complications of BiPAP noncompliance (progression of respiratory acidosis leading to cardiac arrest leading to ) Patient sister requesting for staff to encourage patient to wear BiPAP. She understands that patient patient cannot be forced to comply.
[2022-07-27 07:19] LABS: Basophils # (auto) 0.01 K/uL (0-0.2); Basophils % (auto) 0.1 %; Eosinophils # (auto) 0.13 K/uL (0-0.50); Eosinophils % (auto) 1.4 %; Hematocrit (blood only) 30.3 % (40.1-51.0); Hemoglobin 9.3 g/dl (14.0-18.0); Immature Granulocytes # (auto) 0.13 K/uL (0.00-0.02); Immature Granulocytes % (auto) 1.4 %; Lymphocytes # (auto) 0.44 K/uL (1.2-3.4); Lymphocytes % (auto) 4.6 %; Mean Corpuscular Hemoglobin 32.9 pg (25.0-34.0); Mean Corpuscular Hgb Conc 30.7 g/dL (32.0-36.0); Mean Corpuscular Volume 107.1 fL (80.0-100.0); Mean Platelet Volume 10.7 fL (9.4-12.4); Monocytes # (auto) 0.81 K/uL (0.24-0.82); Monocytes % (auto) 8.4 %; Neutrophils # (auto) 8.08 K/uL (1.4-6.5); Neutrophils % (auto) 84.1 %; Platelet Count 174 K/uL (130-400); RDW Coefficient of Variation 21.7 % (11.5-14.5); RDW Standard Deviation 84.5 fL (36.4-46.3); Red Blood Count 2.83 M/uL (4.63-6.08)
[2022-07-27 08:12] LABS: Calcium 9.6 mg/dl (8.5-10.1); Creatinine Clr Calc Pharmacy 47.4 ml/min; Est GFR (African American) 49.9 ml/min; Est GFR (Non-African American) 43.1 ml/min
[2022-07-27] MEDS: DOCUSATE SODIUM 100 MG CAP PO SCH ×2 (08:18→19:50)
[2022-07-27] MEDS: predniSONE 5 MG TAB PO SCH (08:18)
[2022-07-27] MEDS: CYANOCOBALAMIN (B-12) 500 MCG TABLET PO SCH (08:18)
[2022-07-27] MEDS: PANTOprazole 40 MG TAB PO SCH (08:18)
[2022-07-27] MEDS: LORATADINE 10 MG TAB PO SCH (08:19)
[2022-07-27] MEDS: allopurinoL 100 MG TAB PO SCH (08:19)
[2022-07-27] MEDS: ESCITALOPRAM OXALATE 10 MG TAB PO SCH (08:19)
[2022-07-27 08:20] LABS: Basophilic Stippling 1+; Polychromasia 1+
[2022-07-27] MEDS: METOPROLOL SUCC 50MG EXT REL TAB PO SCH (08:21)
[2022-07-27] MEDS: INSULIN ASPART PER UNIT SC SCH ×4 (08:32→23:40)
[2022-07-27] MEDS: FOLIC ACID 1 MG TAB PO SCH (11:35)
[2022-07-27] MEDS: CHOLECALCIFEROL 1,000 UNITS 25 MCG TAB PO SCH (11:35)
[2022-07-27] MEDS ORDERED: LEVALBUTEROL HCL 1.25 MG/3 ML NEB ONE (12:25)
--- NOTE | 2022-07-27 14:24 | Hospitalist Progress Note ---
Date of Service July 27, 2022 Assessment & Plan (1) Acute on chronic respiratory failure with hypoxia and hypercapnia: Plan 71-year-old male with PMH of lung cancer with mets to liver/on home oxygen/receiving chemo [received 6 cycles of chemo, not getting chemo on a regular schedule because of complications, last chemo 06/03], interstitial lung disease, CKD stage III, [place], CHF, PAF, DVT/PE on anticoagulation, CAD, anemia [facility] with complaint of acute shortness of breath and SPO2 went down to 70%. 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 He also completed antibiotic course for possible pneumonia. He seems not using his BiPAP much in the rehab and in hospital. He is being managed for the following: Acute on chronic respiratory failure with hypoxia and hypercapnia, most likely secondary to interstitial lung disease flare Patient presented with shortness of breath and SPO2 70% [see above]. Admitting CXR with no significant change in the reticulonodular interstitial thickening/hazy bilateral airspace opacities and trace bilateral pleural effusions. Patient is noncompliant with BiPAP. Patient has recent diagnosis of sqamous cell lung cancer with metastasis to liver, follows oncology Patient was discharged on 40 mg of daily prednisone on tapering dose, was on 30 mg of prednisone at presentation. Patient was on Bactrim prophylaxis for being on a steroid. Continue with prednisone with pulmonology recommendation, BiPAP as tolerated, doxycycline and nebulizers [id number] and as needed. Patient requiring BiPAP at bedside, reports no increase shortness of breath. c/w prednisone dose 10 mg daily to be tapered down to 5 Mg daily and then stop, no need for Bactrim prophylaxis. Status post 5 days of doxycycline. Currently on 5 mg of prednisone. c/w lexapro yoel for anxiety. Pt take ativan prn at home. YELENA over CKD stage III Hyperkalemia Admitting creatinine of 1.85 with potassium of 5.4. Baseline creatinine of around 1.3-1.5 Both likely secondary to Bactrim use, Bactrim discontinued Both resolved Now has metabolic alkalosis, nephrology on board, patient given a dose of Diamox. Continues to have high HCO3 given his CO2 retention Goals of care: Discussed goals of care and CODE STATUS with his and sister at bedside on 07/25 They acknowledge that he has decompensated slowly over the course of the last hospitalization and rehab. They agree that chest compression and intubation would not be beneficial and will prolong his suffering. CODE STATUS is changed to DNR DNI. They would like to continue the ongoing medical treatment and intervention. Palliative care on board. History of PAF/DVT/PE: Patient on Xarelto and metoprolol. DVT prophylaxis: Patient on Xarelto Disposition: PT/OT, CM to assist with DC planning. Patient continues to have ongoing medical issues which requires close supervision. He frequently becomes hypoxic requiring BiPAP. Discharged to rehab after medical issues resolved. Burr in place since admission; Burr removed on 07/27. Bladder scan every 6 hour. Full code Admission and Anticipated Discharge Date Admission Date: July 20, 2022 Subjective Patient seen and examined at bedside. He is lethargic but awakens to verbal stimuli. He is able to follow simple commands. He denies any shortness of breath. She did refuse to wear BiPAP overnight. Review of Systems Review of Systems: Unobtainable due to cognitive status Physical Exam Physical Exam: GENERAL: Lethargic; awakens by verbal stimuli. Able to follow simple commands. HEENT: No pallor, no icterus. Pupils equal, round and reactive to light. Oral mucosa moist. NECK: No JVD, no neck masses. HEART: S1 and S2 heard. irregular rate and rhythm. No murmur, no gallop. RESPIRATORY SYSTEM: Bilateral crackles heard at lower lung prater ABDOMEN: Soft, bowel sounds present, nontender, no distention. CENTRAL NERVOUS SYSTEM: Awake, no focal neurological deficit. EXTREMITIES: No edema, no erythema seen. Results & Data Results & Data ([facility]) Vital Signs (Past 12 Hours) Vital Signs Temp Pulse Pulse Pulse Resp BP BP 07/27/22 12:28 83 28 H 07/27/22 12:28 83 28 H 07/27/22 11:46 36.3 C L 85 20 100/67 07/27/22 08:33 07/27/22 08:20 101/65 07/27/22 07:37 98 H 07/27/22 07:21 36.4 C L 81 16 93/59 L 07/27/22 07:11 80 28 H 07/27/22 03:09 36.7 C 83 20 102/66 Pulse Ox O2 Del Method O2 Flow Rate FiO2 07/27/22 12:28 95 2 07/27/22 12:28 95 BiPAP 2 07/27/22 11:46 95 Nasal Cannula 1 07/27/22 08:33 Nasal Cannula 2 07/27/22 08:20 07/27/22 07:37 07/27/22 07:21 100 Oxymask 1 07/27/22 07:11 100 Oxymask 1 07/27/22 03:09 100 Laboratory Results Laboratory Results WBC 9.60 K/ul (4.8-10.8) 07/27/22 06:59 RBC 2.83 M/uL (4.63-6.08) L 07/27/22 06:59 Hgb 9.3 g/dl (14.0-18.0) L 07/27/22 06:59 Hct 30.3 % (40.1-51.0) L 07/27/22 06:59 MCV 107.1 fL (80.0-100.0) H 07/27/22 06:59 MCH 32.9 pg (25.0-34.0) 07/27/22 06:59 MCHC 30.7 g/dL (32.0-36.0) L 07/27/22 06:59 RDW Std Deviation 84.5 fL (36.4-46.3) H 07/27/22 06:59 RDW Coeff of Yogi 21.7 % (11.5-14.5) H 07/27/22 06:59 Plt Count 174 K/uL (130-400) 07/27/22 06:59 MPV 10.7 fL (9.4-12.4) 07/27/22 06:59 Immature Gran % (Auto) 1.4 % 07/27/22 06:59 Neut % (Auto) 84.1 % 07/27/22 06:59 Lymph % (Auto) 4.6 % 07/27/22 06:59 [place] % (Auto) 8.4 % 07/27/22 06:59 Eos % (Auto) 1.4 % 07/27/22 06:59 Baso % (Auto) 0.1 % 07/27/22 06:59 Neut # (Auto) 8.08 K/uL (1.4-6.5) H 07/27/22 06:59 Lymph # (Auto) 0.44 K/uL (1.2-3.4) L 07/27/22 06:59 [place] # (Auto) 0.81 K/uL (0.24-0.82) 07/27/22 06:59 Eos # (Auto) 0.13 K/uL (0-0.50) 07/27/22 06:59 Baso # (Auto) 0.01 K/uL (0-0.2) 07/27/22 06:59 Immature Gran # (Auto) 0.13 K/uL (0.00-0.02) H 07/27/22 06:59 Polychromasia 1+ 07/27/22 06:59 Basophilic Stippling 1+ 07/27/22 06:59 Anisocytosis Present 07/26/22 06:35 Stomatocytes 1+ 07/21/22 05:21 ABG pH 7.42 (7.35-7.45) 07/25/22 06:53 ABG pCO2 69 mmHg (35-46) H 07/25/22 06:53 ABG pO2 79 mmHg (80-95) L 07/25/22 06:53 ABG HCO3 45 mmol/L (19-24) H 07/25/22 06:53 ABG O2 Saturation 98.5 % (90-95) H 07/25/22 06:53 ABG Base Excess 16.6 mEq/L (-9-1.8) H 07/25/22 06:53 Nehemias Test Pos (Pos) 07/25/22 06:53 VBG pH 7.32 (7.36-7.41) L 07/20/22 17:18 VBG pCO2 93 mmHg (38-50) H 07/20/22 17:18 VBG pO2 29 mmHg 07/20/22 17:18 VBG HCO3 48 mmol/L 07/20/22 17:18 VBG O2 Saturation < 60.0 % 07/20/22 17:18 VBG Base Excess 16.9 mEq/L 07/20/22 17:18 Oxygen Given 1 07/25/22 06:53 Sodium 140 mmol/L (136-145) 07/27/22 06:59 Potassium 4.0 mmol/L (3.5-5.1) 07/27/22 06:59 Chloride 95 mmol/L (98-107) L 07/27/22 06:59 Carbon Dioxide 39 mmol/L (21-32) H 07/27/22 06:59 Anion Gap 6 (3-11) 07/27/22 06:59 BUN 77 mg/dl (6-23) H 07/27/22 06:59 Creatinine 1.57 mg/dl (0.6-1.4) H 07/27/22 06:59 Est Cr Clr Drug Dosing 47.4 ml/min 07/27/22 06:59 Est GFR ( Amer) 49.9 ml/min 07/27/22 06:59 Est GFR (Non-Af Amer) 43.1 ml/min 07/27/22 06:59 BUN/Creatinine Ratio 49.0 (10-20) H 07/27/22 06:59 Glucose 71 mg/dl (70-99(Fasting)) 07/27/22 06:59 POC Glucose 115 mg/dl (70-99) H 07/27/22 11:24 Estimat Average Glucose 131 mg/dl 07/23/22 07:11 Hemoglobin A1c 6.2 % (4.5-5.6) H 07/23/22 07:11 Lactate 1.1 mmol/L (0.4-2.0) 07/20/22 17:18 Calcium 9.6 mg/dl (8.5-10.1) 07/27/22 06:59 Phosphorus 3.3 mg/dl (2.5-4.9) D 07/23/22 07:11 Magnesium 1.9 mg/dl (1.7-2.4) 07/25/22 06:53 Total Bilirubin 0.8 mg/dl (0.2-1.0) 07/20/22 15:45 AST 26 U/L (13-39) 07/20/22 15:45 ALT 49 U/L (7-52) 07/20/22 15:45 Alkaline Phosphatase 169 U/L (34-104) H 07/20/22 15:45 Ammonia 46.0 umol/L (18-72) 07/24/22 20:25 Total Creatine Kinase 17 U/L (30-223) L 07/21/22 10:55 Troponin I High Sens 42.5 pg/ml (0-20) H 07/21/22 16:42 B-Natriuretic Peptide 173 pg/ml (0-100) H 07/20/22 15:45 Total Protein 7.7 gm/dl (6.0-8.3) 07/20/22 15:45 Albumin 3.8 gm/dl (3.4-5.0) 07/20/22 15:45 Globulin 3.9 gm/dl (2.5-4.0) 07/20/22 15:45 Albumin/Globulin Ratio 1.0 (0.9-2) 07/20/22 15:45 Lipase 35 U/L (11-82) 07/20/22 15:45 Procalcitonin 0.11 ng/ml (0-0.5) 07/20/22 15:45 Nasal Screen MRSA (PCR) Negative (Negative) 07/21/22 17:12 SARS-CoV-2 (PCR) NEGATIVE (Negative) 07/20/22 16:12 Influenza Type A (PCR) Negative (Neg) 07/20/22 16:12 Influenza Type B (PCR) Negative (Neg) 07/20/22 16:12 RSV (RT-PCR) Negative (Neg) 07/20/22 16:12 Impressions Chest X-Ray 07/22/22 11:45 XR chest 1V portable CLINICAL HISTORY: f/u COMPARISON STUDY: Chest radiograph July 20, 2022. Chest CT June 25, 2022. FINDINGS: Left subclavian pacer/AICD is in place. There is no pneumothorax. Possible trace bilateral pleural effusions. Cardiomediastinal silhouette is stable. Interstitial thickening and patchy bilateral airspace opacities are similar to prior exam. IMPRESSION: No significant change in interstitial thickening, hazy bilateral airspace opacities and trace bilateral pleural effusions. ACT 112: Negative or not required by law. Electronically signed by: Ramiro Ponce M.D. 07/22/2022 1:46 PM
[2022-07-27] MEDS: ATORVASTATIN 40 MG TAB PO SCH (19:50)
[2022-07-27] MEDS: RIVAROXABAN 15 MG TAB PO SCH (19:50)
[2022-07-27] MEDS ORDERED: hydrOXYzine HCl 10 MG TAB PO STA (21:17)
[2022-07-27] MEDS ORDERED: METOPROLOL TARTRATE 25 MG TAB PO STA (21:17)
[2022-07-27] MEDS ORDERED: MAGNESIUM SULFATE / D5W 1 GM/100 ML BAG IV ONE (21:18)
[2022-07-27] MEDS ORDERED: ALBUMIN 25% 100 mL 25 GM/100 ML VIAL IV ONE (22:37)
[2022-07-27] MEDS ORDERED: methylPREDNISolone 20 MG in SYRINGE 0 ML IV STA (22:43)
[2022-07-28] MEDS: IPRATROPIUM BROMIDE NEB SOLN 0.02% 2.5 ML VIAL INH SCH ×4 (00:57→19:47)
[2022-07-28] MEDS: LEVALBUTEROL 1.25MG/0.5ML NEB INH SCH ×4 (00:57→19:48)
[2022-07-28 08:05] LABS: Hematocrit (blood only) 28.5 % (40.1-51.0); Hemoglobin 8.9 g/dl (14.0-18.0); Mean Corpuscular Hemoglobin 33.6 pg (25.0-34.0); Mean Corpuscular Hgb Conc 31.2 g/dL (32.0-36.0); Mean Corpuscular Volume 107.5 fL (80.0-100.0); Mean Platelet Volume 10.9 fL (9.4-12.4); Nucleated RBC # (auto) 0.02 K/uL (0-0); Nucleated RBC % (auto) 0.3 %; Platelet Count 177 K/uL (130-400); RDW Coefficient of Variation 21.8 % (11.5-14.5); Red Blood Count 2.65 M/uL (4.63-6.08); White Blood Count 7.86 K/ul (4.8-10.8)
[2022-07-28] MEDS: METOPROLOL SUCC 50MG EXT REL TAB PO SCH (08:09)
[2022-07-28] MEDS: predniSONE 5 MG TAB PO SCH (08:11)
[2022-07-28] MEDS: PANTOprazole 40 MG TAB PO SCH (08:12)
[2022-07-28] MEDS: CYANOCOBALAMIN (B-12) 500 MCG TABLET PO SCH (08:12)
[2022-07-28] MEDS: DOCUSATE SODIUM 100 MG CAP PO SCH ×2 (08:12→21:13)
[2022-07-28] MEDS: ESCITALOPRAM OXALATE 10 MG TAB PO SCH (08:12)
[2022-07-28] MEDS: allopurinoL 100 MG TAB PO SCH (08:13)
[2022-07-28] MEDS: LORATADINE 10 MG TAB PO SCH (08:14)
--- NOTE | 2022-07-28 08:24 | XRay Report ---
XR chest 1V portable CLINICAL HISTORY: sob TECHNIQUE: Single frontal radiograph of the chest was obtained. Comparison: Comparison is made to chest radiograph 07/22/2022 FINDINGS: Pacemaker defibrillator is seen. Cardiomegaly is noted. There is prominence and cephalization of the vasculature with Estephania B lines seen. Lungs are hyperinflated. Peripheral predominant interstitial ch anges are seen. No evidence of pleural effusion or pneumothorax. IMPRESSION: Cardiomegaly with moderate pulmonary edema. There is chronic interstitial thickening compatible with fibrosis. ACT 112: Negative or not required by law. Electronically signed by: Riley Angeles M.D. 07/28/2022 8:23 AM
[2022-07-28 08:29] LABS: BUN Creatinine Ratio 48.8 (10-20); Calcium 9.8 mg/dl (8.5-10.1); Creatinine Clr Calc Pharmacy 46.5 ml/min; Est GFR (African American) 48.8 ml/min; Est GFR (Non-African American) 42.1 ml/min; Potassium 4.6 mmol/L (3.5-5.1)
[2022-07-28] MEDS: INSULIN ASPART PER UNIT SC SCH ×4 (08:48→21:15)
[2022-07-28 09:02] LABS: Anisocytosis Present; Basophilic Stippling 1+; Basophils # (auto) 0.01 K/uL (0-0.2); Basophils % (auto) 0.1 %; Eosinophils # (auto) 0.03 K/uL (0-0.50); Eosinophils % (auto) 0.4 %; Immature Granulocytes # (auto) 0.13 K/uL (0.00-0.02); Immature Granulocytes % (auto) 1.7 %; Lymphocytes # (auto) 0.17 K/uL (1.2-3.4); Lymphocytes % (auto) 2.2 %; Macrocytosis Present; Monocytes # (auto) 0.27 K/uL (0.24-0.82); Monocytes % (auto) 3.4 %; Neutrophils # (auto) 7.25 K/uL (1.4-6.5); Neutrophils % (auto) 92.2 %; Polychromasia 1+
--- NOTE | 2022-07-28 10:44 | Hospitalist Progress Note ---
Date of Service July 28, 2022 Assessment & Plan (1) Acute on chronic respiratory failure with hypoxia and hypercapnia: Plan 71-year-old male with PMH of lung cancer with mets to liver/on home oxygen/receiving chemo [received 6 cycles of chemo, not getting chemo on a regular schedule because of complications, last chemo 06/03], interstitial lung disease, CKD stage III, LAWRENCE, CHF, PAF, DVT/PE on anticoagulation, CAD, [facility] with complaint of acute shortness of breath and SPO2 went down to 70%. 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 He also completed antibiotic course for possible pneumonia. He seems not using his BiPAP much in the rehab and in hospital. He is being managed for the following: Acute on chronic respiratory failure with hypoxia and hypercapnia, most likely secondary to interstitial lung disease flare Patient presented with shortness of breath and SPO2 70% [see above]. Admitting CXR with no significant change in the reticulonodular interstitial thickening/hazy bilateral airspace opacities and trace bilateral pleural effusions. Patient is noncompliant with BiPAP. Patient has recent diagnosis of sqamous cell lung cancer with metastasis to liver, follows oncology Patient was discharged on 40 mg of daily prednisone on tapering dose, was on 30 mg of prednisone at presentation. Patient was on Bactrim prophylaxis for being on a steroid. Continue with prednisone with pulmonology recommendation, BiPAP as tolerated, and nebulizers [id number] and as needed. Patient requiring BiPAP at bedside, reports no increase shortness of breath. c/w prednisone dose 10 mg daily to be tapered down to 5 Mg daily and then stop, no need for Bactrim prophylaxis. Status post 5 days of doxycycline. Currently on 5 mg of prednisone. c/w lexapro yoel for anxiety. Pt take ativan prn at home. YELENA over CKD stage III Hyperkalemia Admitting creatinine of 1.85 with potassium of 5.4. Baseline creatinine of around 1.3-1.5 Both likely secondary to Bactrim use, Bactrim discontinued Both resolved Now has metabolic alkalosis, nephrology on board, patient given a dose of Diamox. Continues to have high HCO3 given his CO2 retention Goals of care: Discussed goals of care and CODE STATUS with his and sister at bedside on 07/25 They acknowledge that he has decompensated slowly over the course of the last hospitalization and rehab. They agree that chest compression and intubation would not be beneficial and will prolong his suffering. CODE STATUS is changed to DNR DNI. They would like to continue the ongoing medical dylon atment and intervention. Palliative care on board. History of PAF/DVT/PE: Patient on Xarelto and metoprolol. DVT prophylaxis: Patient on Xarelto Disposition: PT/OT, CM to assist with DC planning. Patient continues to have ongoing medical issues which requires close supervision. He frequently becomes hypoxic requiring BiPAP. Family does not want patient to go back to rehab. They prefer having him come back home. Referral placed to [facility]. Full code Admission and Anticipated Discharge Date Admission Date: July 20, 2022 Subjective Patient seen and examined at bedside. Is lethargic; awakens to voice. He says he feels tired. He denies any shortness of breath, chest pain, palpitation or abdominal pain. Burr was placed again as patient retained urine. Telemetry shows atrial fibrillation with ventricular rate in 80s to 90s. Review of Systems Review of Systems: All systems reviewed & are unremarkable except as noted in Subjective Physical Exam Physical Exam: GENERAL: Lethargic; awakens by verbal stimuli. Able to follow simple commands. HEENT: No pallor, no icterus. Pupils equal, round and reactive to light. Oral mucosa moist. NECK: No JVD, no neck masses. HEART: S1 and S2 heard. irregular rate and rhythm. No murmur, no gallop. RESPIRATORY SYSTEM: Bilateral crackles heard at lower lung prater ABDOMEN: Soft, bowel sounds present, nontender, no distention. CENTRAL NERVOUS SYSTEM: Awake, no focal neurological deficit. EXTREMITIES: No edema, no erythema seen. Results & Data Results & Data ([facility]) Vital Signs (Past 12 Hours) Vital Signs Temp Pulse Pulse Resp BP Pulse Ox Pulse Ox 07/28/22 07:43 72 07/28/22 07:43 36.3 C L 85 17 100/67 98 07/28/22 07:16 91 H 24 99 07/28/22 03:31 36.4 C L 84 16 101/63 100 07/28/22 01:00 83 18 100 07/27/22 23:00 98 07/27/22 22:51 36.4 C L 84 20 108/70 100 O2 Del Method O2 Del Method O2 Flow Rate O2 Flow Rate 07/28/22 07:43 07/28/22 07:43 Nasal Cannula 98 07/28/22 07:16 Nasal Cannula 2 07/28/22 03:31 Nasal Cannula 2 07/28/22 01:00 Nasal Cannula 2 07/27/22 23:00 Oxymask 2 07/27/22 22:51 Nasal Cannula 2 Laboratory Results Laboratory Results WBC 7.86 K/ul (4.8-10.8) 07/28/22 07:48 RBC 2.65 M/uL (4.63-6.08) L 07/28/22 07:48 Hgb 8.9 g/dl (14.0-18.0) L 07/28/22 07:48 Hct 28.5 % (40.1-51.0) L 07/28/22 07:48 MCV 107.5 fL (80.0-100.0) H 07/28/22 07:48 MCH 33.6 pg (25.0-34.0) 07/28/22 07:48 MCHC 31.2 g/dL (32.0-36.0) L 07/28/22 07:48 RDW Std Deviation 86.0 fL (36.4-46.3) H 07/28/22 07:48 RDW Coeff of Yogi 21.8 % (11.5-14.5) H 07/28/22 07:48 Plt Count 177 K/uL (130-400) 07/28/22 07:48 MPV 10.9 fL (9.4-12.4) 07/28/22 07:48 Immature Gran % (Auto) 1.7 % 07/28/22 07:48 Neut % (Auto) 92.2 % 07/28/22 07:48 Lymph % (Auto) 2.2 % 07/28/22 07:48 [place] % (Auto) 3.4 % 07/28/22 07:48 Eos % (Auto) 0.4 % 07/28/22 07:48 Baso % (Auto) 0.1 % 07/28/22 07:48 Neut # (Auto) 7.25 K/uL (1.4-6.5) H 07/28/22 07:48 Lymph # (Auto) 0.17 K/uL (1.2-3.4) L 07/28/22 07:48 [place] # (Auto) 0.27 K/uL (0.24-0.82) 07/28/22 07:48 Eos # (Auto) 0.03 K/uL (0-0.50) 07/28/22 07:48 Baso # (Auto) 0.01 K/uL (0-0.2) 07/28/22 07:48 Immature Gran # (Auto) 0.13 K/uL (0.00-0.02) H 07/28/22 07:48 Absolute Nucleated RBC 0.02 K/uL (0-0) H 07/28/22 07:48 Nucleated RBC % (auto) 0.3 % 07/28/22 07:48 Polychromasia 1+ 07/28/22 07:48 Basophilic Stippling 1+ 07/28/22 07:48 Anisocytosis Present 07/28/22 07:48 Macrocytosis Present 07/28/22 07:48 Stomatocytes 1+ 07/21/22 05:21 ABG pH 7.42 (7.35-7.45) 07/25/22 06:53 ABG pCO2 69 mmHg (35-46) H 07/25/22 06:53 ABG pO2 79 mmHg (80-95) L 07/25/22 06:53 ABG HCO3 45 mmol/L (19-24) H 07/25/22 06:53 ABG O2 Saturation 98.5 % (90-95) H 07/25/22 06:53 ABG Base Excess 16.6 mEq/L (-9-1.8) H 07/25/22 06:53 Nehemias Test Pos (Pos) 07/25/22 06:53 VBG pH 7.32 (7.36-7.41) L 07/20/22 17:18 VBG pCO2 93 mmHg (38-50) H 07/20/22 17:18 VBG pO2 29 mmHg 07/20/22 17:18 VBG HCO3 48 mmol/L 07/20/22 17:18 VBG O2 Saturation < 60.0 % 07/20/22 17:18 VBG Base Excess 16.9 mEq/L 07/20/22 17:18 Oxygen Given 1 07/25/22 06:53 Sodium 137 mmol/L (136-145) 07/28/22 07:48 Potassium 4.6 mmol/L (3.5-5.1) 07/28/22 07:48 Chloride 91 mmol/L (98-107) L 07/28/22 07:48 Carbon Dioxide 38 mmol/L (21-32) H 07/28/22 07:48 Anion Gap 8 (3-11) 07/28/22 07:48 BUN 78 mg/dl (6-23) H 07/28/22 07:48 Creatinine 1.60 mg/dl (0.6-1.4) H 07/28/22 07:48 Est Cr Clr Drug Dosing 46.5 ml/min 07/28/22 07:48 Est GFR ( Amer) 48.8 ml/min 07/28/22 07:48 Est GFR (Non-Af Amer) 42.1 ml/min 07/28/22 07:48 BUN/Creatinine Ratio 48.8 (10-20) H 07/28/22 07:48 Glucose 121 mg/dl (70-99(Fasting)) H 07/28/22 07:48 POC Glucose 112 mg/dl (70-99) H 07/28/22 07:09 Estimat Average Glucose 131 mg/dl 07/23/22 07:11 Hemoglobin A1c 6.2 % (4.5-5.6) H 07/23/22 07:11 Lactate 1.1 mmol/L (0.4-2.0) 07/20/22 17:18 Calcium 9.8 mg/dl (8.5-10.1) 07/28/22 07:48 Phosphorus 3.3 mg/dl (2.5-4.9) D 07/23/22 07:11 Magnesium 2.0 mg/dl (1.7-2.4) 07/27/22 06:59 Total Bilirubin 0.8 mg/dl (0.2-1.0) 07/20/22 15:45 AST 26 U/L (13-39) 07/20/22 15:45 ALT 49 U/L (7-52) 07/20/22 15:45 Alkaline Phosphatase 169 U/L (34-104) H 07/20/22 15:45 Ammonia 46.0 umol/L (18-72) 07/24/22 20:25 Total Creatine Kinase 17 U/L (30-223) L 07/21/22 10:55 Troponin I High Sens 42.5 pg/ml (0-20) H 07/21/22 16:42 B-Natriuretic Peptide 173 pg/ml (0-100) H 07/20/22 15:45 Total Protein 7.7 gm/dl (6.0-8.3) 07/20/22 15:45 Albumin 3.8 gm/dl (3.4-5.0) 07/20/22 15:45 Globulin 3.9 gm/dl (2.5-4.0) 07/20/22 15:45 Albumin/Globulin Ratio 1.0 (0.9-2) 07/20/22 15:45 Lipase 35 U/L (11-82) 07/20/22 15:45 Procalcitonin 0.11 ng/ml (0-0.5) 07/20/22 15:45 Nasal Screen MRSA (PCR) Negative (Negative) 07/21/22 17:12 SARS-CoV-2 (PCR) NEGATIVE (Negative) 07/20/22 16:12 Influenza Type A (PCR) Negative (Neg) 07/20/22 16:12 Influenza Type B (PCR) Negative (Neg) 07/20/22 16:12 RSV (RT-PCR) Negative (Neg) 07/20/22 16:12 Impressions Chest X-Ray 07/27/22 22:35 XR chest 1V portable CLINICAL HISTORY: sob TECHNIQUE: Single frontal radiograph of the chest was obtained. Comparison: Comparison is made to chest radiograph 07/22/2022 FINDINGS: Pacemaker defibrillator is seen. Cardiomegaly is noted. There is prominence and cephalization of the vasculature with Estephania B lines seen. Lungs are hyperinflated. Peripheral predominant interstitial changes are seen. No evidence of pleural effusion or pneumothorax. IMPRESSION: Cardiomegaly with moderate pulmonary edema. There is chronic interstitial thickening compatible with fibrosis. ACT 112: Negative or not required by law. Electronically signed by: Riley Angeles M.D. 07/28/2022 8:23 AM
[2022-07-28] MEDS: FOLIC ACID 1 MG TAB PO SCH (12:13)
[2022-07-28] MEDS: CHOLECALCIFEROL 1,000 UNITS 25 MCG TAB PO SCH (12:13)
--- NOTE | 2022-07-28 13:06 | Palliative Care Progress Note ---
Date of Service July 28, 2022 Assessment & Plan (1) Anxiety: Plan: Family concerned about this and feel that he would be more likely to wear the bipap if he had medication for anxiety. Discussed concern of oversedation. They are aware and would prefer that he have medication for comfort and try bipap with medication. Vistaril ordered HS with hold for lethargy. (2) Palliative care encounter: Plan: He is now DNR. Family wants to continue current level of care with hope of his improving. They are considering taking him home rather than SNF. Case management involved. Admission and Anticipated Discharge Date Admission Date: July 20, 2022 Subjective Sleeping. Appears comfortable. Family at bedside. They are concerned about him being anxious last night. They felt that he rested well with vistaril. Review of Systems Review of Systems: ESAS Pain 0/3 Dyspnea 0/3 PPS 30% Physical Exam Constitutional: no acute distress Respiratory: normal respiratory effort; no respiratory distress and no labored breathing Results & Data ([facility]) Vital Signs (Past 12 Hours) Vital Signs Temp Pulse Pulse Resp BP Pulse Ox O2 Del Method 07/28/22 11:12 97.3 F L 85 18 100/67 95 Nasal Cannula 07/28/22 07:43 72 07/28/22 07:43 97.3 F L 85 17 100/67 98 Nasal Cannula 07/28/22 07:16 91 H 24 99 Nasal Cannula 07/28/22 03:31 97.5 F L 84 16 101/63 100 Nasal Cannula 07/28/22 01:00 83 18 100 Nasal Cannula O2 Flow Rate 07/28/22 11:12 2 07/28/22 07:43 07/28/22 07:43 98 07/28/22 07:16 2 07/28/22 03:31 2 07/28/22 01:00 2 PG Care Time/CCT Total # of Minutes Spent Total Time Spent with Patient: Total time spent is greater than 50% in coordination of care (as documented) at patient's floor/unit and/or counseling patient: Coding Level of Care Code 30076 Subseq Hosp Care Lvl 1 Diagnoses Anxiety F41.9 Palliative care encounter Z51.5
--- NOTE | 2022-07-28 13:10 | Pharmacy Report ---
Pharmacy Glycemic Sign Off Nt - Date of Service July 28, 2022 - Assessment & Plan ASSESSMENT: * Pharmacy was consulted by Dr Johnson on 07/22/22 for glycemic control and to write orders per [facility] inpatient glycemic control protocol. * Major changes made by pharmacy to antidiabetic regimen include: * Addition of NPH (now discontinued) * Addition of Novolog * Patient has been receiving/requiring no insulin at this time * BSGs ranging 80-134 mg/dl * Regimen has only required minor adjustments over the past 48hrs to achieve this level of control * Do not anticipate further changes in patient status that would quickly deteriorate glycemic control (i.e. patient to be NPO for upcoming procedure, steroids tapering, starting tube feedings, etc). * Please see recommendations for outpatient antidiabetic regimen below. PLAN FOR INPATIENT GLYCEMIC CONTROL: No changes needed to current regimen. * Continue NovoLog per scale ACHS/Q6hrs while NPO * Goal range = 110 -140 mg/dl * CF = 30 mg/dl/unit * CR = 1 unit for ever 10 g CHO consumed * Pharmacy is signing off of glycemic consult and will no longer be making adjustments to inpatient regimen. Please feel free to re-consult if needed. Thank you.
[2022-07-28] MEDS ORDERED: LEVALBUTEROL HCL 1.25 MG/3 ML NEB ONE (19:45)
[2022-07-28] MEDS: RIVAROXABAN 15 MG TAB PO SCH (21:13)
[2022-07-28] MEDS: hydrOXYzine HCl 10 MG TAB PO SCH (21:13)
[2022-07-28] MEDS: ATORVASTATIN 40 MG TAB PO SCH (21:13)
[2022-07-29] MEDS: IPRATROPIUM BROMIDE NEB SOLN 0.02% 2.5 ML VIAL INH SCH ×4 (01:17→19:11)
[2022-07-29] MEDS: LEVALBUTEROL 1.25MG/0.5ML NEB INH SCH ×4 (01:17→19:12)
[2022-07-29] MEDS ORDERED: LORazepam 0.5 MG TAB PO STA (02:42)
[2022-07-29 07:48] LABS: Eosinophils # (auto) 0.16 K/uL (0-0.50); Eosinophils % (auto) 1.8 %; Hematocrit (blood only) 29.2 % (40.1-51.0); Immature Granulocytes % (auto) 1.1 %; Lymphocytes # (auto) 0.44 K/uL (1.2-3.4); Lymphocytes % (auto) 4.8 %; Mean Corpuscular Hemoglobin 33.1 pg (25.0-34.0); Mean Corpuscular Hgb Conc 30.8 g/dL (32.0-36.0); Mean Corpuscular Volume 107.4 fL (80.0-100.0); Mean Platelet Volume 10.8 fL (9.4-12.4); Monocytes % (auto) 8.8 %; Neutrophils % (auto) 83.5 %; Nucleated RBC # (auto) 0.02 K/uL (0-0); Nucleated RBC % (auto) 0.2 %; Platelet Count 186 K/uL (130-400); RDW Coefficient of Variation 21.8 % (11.5-14.5); RDW Standard Deviation 84.4 fL (36.4-46.3); Red Blood Count 2.72 M/uL (4.63-6.08)
[2022-07-29] MEDS: LORATADINE 10 MG TAB PO SCH (08:12)
[2022-07-29] MEDS: allopurinoL 100 MG TAB PO SCH (08:12)
[2022-07-29] MEDS: DOCUSATE SODIUM 100 MG CAP PO SCH ×2 (08:12→21:34)
[2022-07-29] MEDS: ESCITALOPRAM OXALATE 10 MG TAB PO SCH (08:12)
[2022-07-29] MEDS: CYANOCOBALAMIN (B-12) 500 MCG TABLET PO SCH (08:13)
[2022-07-29] MEDS: METOPROLOL SUCC 50MG EXT REL TAB PO SCH (08:13)
[2022-07-29] MEDS: predniSONE 5 MG TAB PO SCH (08:13)
[2022-07-29] MEDS: PANTOprazole 40 MG TAB PO SCH (08:13)
[2022-07-29 08:14] LABS: Anisocytosis Present; Basophilic Stippling 1+; Polychromasia 1+
[2022-07-29 08:27] LABS: Anion Gap 3 (3-11); Blood Urea Nitrogen 76 mg/dl (6-23); Calcium 9.7 mg/dl (8.5-10.1); Carbon Dioxide 44 mmol/L (21-32); Chloride 93 mmol/L (98-107); Creatinine Clr Calc Pharmacy 48.9 ml/min; Est GFR (African American) 51.9 ml/min; Est GFR (Non-African American) 44.8 ml/min; Glucose 87 mg/dl (70-99(Fasting)); Sodium 140 mmol/L (136-145)
[2022-07-29] MEDS: INSULIN ASPART PER UNIT SC SCH ×4 (09:40→21:34)
[2022-07-29] MEDS: FOLIC ACID 1 MG TAB PO SCH (11:58)
[2022-07-29] MEDS: CHOLECALCIFEROL 1,000 UNITS 25 MCG TAB PO SCH (11:58)
[2022-07-29] MEDS ORDERED: MoRPHine SULFATE 2 MG/ML CARP IV PRN (14:15)
--- NOTE | 2022-07-29 14:21 | Hospitalist Progress Note ---
Date of Service July 29, 2022 Assessment & Plan (1) Acute on chronic respiratory failure with hypoxia and hypercapnia: Plan 71-year-old male with PMH of lung cancer with mets to liver/on home oxygen/receiving chemo [received 6 cycles of chemo, not getting chemo on a regular schedule because of complications, last chemo 06/03], interstitial lung disease, CKD stage III, [place], CHF, PAF, DVT/PE on anticoagulation, CAD, anemia [facility] with complaint of acute shortness of breath and SPO2 went down to 70%. 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 He also completed antibiotic course for possible pneumonia. He seems not using his BiPAP much in the rehab and in hospital. He is being managed for the following: Acute on chronic respiratory failure with hypoxia and hypercapnia, most likely secondary to interstitial lung disease flare Patient presented with shortness of breath and SPO2 70% [see above]. Admitting CXR with no significant change in the reticulonodular interstitial thickening/hazy bilateral airspace opacities and trace bilateral pleural effusions. Patient is noncompliant with BiPAP. Patient has recent diagnosis of sqamous cell lung cancer with metastasis to liver, follows oncology Patient was discharged on 40 mg of daily prednisone on tapering dose, was on 30 mg of prednisone at presentation. Patient was on Bactrim prophylaxis for being on a steroid. Continue with prednisone with pulmonology recommendation, BiPAP as tolerated, and nebulizers [id number] and as needed. Patient requiring BiPAP at bedside, reports no increase shortness of breath. c/w prednisone dose 10 mg daily to be tapered down to 5 Mg daily and then stop, no need for Bactrim prophylaxis. Status post 5 days of doxycycline. Currently on 5 mg of prednisone. c/w lexapro yoel for anxiety. Pt take ativan prn at home. YELENA over CKD stage III Hyperkalemia Admitting creatinine of 1.85 with potassium of 5.4. Baseline creatinine of around 1.3-1.5 Both likely secondary to Bactrim use, Bactrim discontinued Both resolved Now has metabolic alkalosis, nephrology on board, patient given a dose of Diamox. Continues to have high HCO3 given his CO2 retention Goals of care: Discussed goals of care and CODE STATUS with his and sister at bedside on 07/25 They acknowledge that he has decompensated slowly over the course of the last hospitalization and rehab. They agree that chest compression and intubation would not be beneficial and will prolong his suffering. CODE STATUS is changed to DNR DNI. They would like to continue the ongoing medical dylon atment and intervention. Palliative care on board. History of PAF/DVT/PE: Patient on Xarelto and metoprolol. DVT prophylaxis: Patient on Xarelto Disposition: PT/OT, CM to assist with DC planning. Patient continues to have ongoing medical issues which requires close supervision. Family does not want patient to go back to rehab. They prefer having him come back home. Referral placed to [facility]. BIPAP script written. Discharged home after arrangements are made. DNR/DNI Admission and Anticipated Discharge Date Admission Date: July 20, 2022 Subjective Patient seen and examined at bedside. He didn't use BIPAP overnight. Pulse oximetry done overnight; patient desaturated to 70s. Telemetry shows A. fib with ventricular rate of 80s to 90s. Review of Systems Review of Systems: All systems reviewed & are unremarkable except as noted in Subjective Physical Exam Physical Exam: GENERAL: Alert, oriented to self. HEENT: No pallor, no icterus. Pupils equal, round and reactive to light. Oral mucosa moist. NECK: No JVD, no neck masses. HEART: S1 and S2 heard. irregular rate and rhythm. No murmur, no gallop. RESPIRATORY SYSTEM: Bilateral crackles heard at lower lung prater ABDOMEN: Soft, bowel sounds present, nontender, no distention. CENTRAL NERVOUS SYSTEM: Awake, no focal neurological deficit. EXTREMITIES: No edema, no erythema seen. Results & Data Results & Data ([facility]) Vital Signs (Past 12 Hours) Vital Signs Temp Pulse Pulse Pulse Resp BP Pulse Ox 07/29/22 12:51 88 18 97 07/29/22 11:16 36.4 C L 90 20 106/66 100 07/29/22 07:00 83 07/29/22 07:17 36.5 C 93 H 20 109/76 100 07/29/22 06:56 99 H 26 H 98 07/29/22 04:29 98 H 107/69 07/29/22 03:22 98 H 07/29/22 02:55 36.3 C L 88 16 101/63 100 Pulse Ox O2 Del Method O2 Del Method O2 Flow Rate O2 Flow Rate 07/29/22 12:51 Nasal Cannula 2 07/29/22 11:16 Nasal Cannula 2 07/29/22 07:00 07/29/22 07:17 Oxymask 2 07/29/22 06:56 Oxymask 2 07/29/22 04:29 07/29/22 03:22 95 Nasal Cannula 2 07/29/22 02:55 Oxymask 4 Laboratory Results Laboratory Results WBC 9.10 K/ul (4.8-10.8) 07/29/22 07:16 RBC 2.72 M/uL (4.63-6.08) L 07/29/22 07:16 Hgb 9.0 g/dl (14.0-18.0) L 07/29/22 07:16 Hct 29.2 % (40.1-51.0) L 07/29/22 07:16 MCV 107.4 fL (80.0-100.0) H 07/29/22 07:16 MCH 33.1 pg (25.0-34.0) 07/29/22 07:16 MCHC 30.8 g/dL (32.0-36.0) L 07/29/22 07:16 RDW Std Deviation 84.4 fL (36.4-46.3) H 07/29/22 07:16 RDW Coeff of Yogi 21.8 % (11.5-14.5) H 07/29/22 07:16 Plt Count 186 K/uL (130-400) 07/29/22 07:16 MPV 10.8 fL (9.4-12.4) 07/29/22 07:16 Immature Gran % (Auto) 1.1 % 07/29/22 07:16 Neut % (Auto) 83.5 % 07/29/22 07:16 Lymph % (Auto) 4.8 % 07/29/22 07:16 [place] % (Auto) 8.8 % 07/29/22 07:16 Eos % (Auto) 1.8 % 07/29/22 07:16 Baso % (Auto) 0.0 % 07/29/22 07:16 Neut # (Auto) 7.60 K/uL (1.4-6.5) H 07/29/22 07:16 Lymph # (Auto) 0.44 K/uL (1.2-3.4) L 07/29/22 07:16 [place] # (Auto) 0.80 K/uL (0.24-0.82) 07/29/22 07:16 Eos # (Auto) 0.16 K/uL (0-0.50) 07/29/22 07:16 Baso # (Auto) 0.00 K/uL (0-0.2) 07/29/22 07:16 Immature Gran # (Auto) 0.10 K/uL (0.00-0.02) H 07/29/22 07:16 Absolute Nucleated RBC 0.02 K/uL (0-0) H 07/29/22 07:16 Nucleated RBC % (auto) 0.2 % 07/29/22 07:16 Polychromasia 1+ 07/29/22 07:16 Basophilic Stippling 1+ 07/29/22 07:16 Anisocytosis Present 07/29/22 07:16 Macrocytosis Present 07/28/22 07:48 Stomatocytes 1+ 07/21/22 05:21 ABG pH 7.42 (7.35-7.45) 07/25/22 06:53 ABG pCO2 69 mmHg (35-46) H 07/25/22 06:53 ABG pO2 79 mmHg (80-95) L 07/25/22 06:53 ABG HCO3 45 mmol/L (19-24) H 07/25/22 06:53 ABG O2 Saturation 98.5 % (90-95) H 07/25/22 06:53 ABG Base Excess 16.6 mEq/L (-9-1.8) H 07/25/22 06:53 Nehemias Test Pos (Pos) 07/25/22 06:53 VBG pH 7.32 (7.36-7.41) L 07/20/22 17:18 VBG pCO2 93 mmHg (38-50) H 07/20/22 17:18 VBG pO2 29 mmHg 07/20/22 17:18 VBG HCO3 48 mmol/L 07/20/22 17:18 VBG O2 Saturation < 60.0 % 07/20/22 17:18 VBG Base Excess 16.9 mEq/L 07/20/22 17:18 Oxygen Given 1 07/25/22 06:53 Sodium 140 mmol/L (136-145) 07/29/22 07:16 Potassium 4.0 mmol/L (3.5-5.1) 07/29/22 09:16 Chloride 93 mmol/L (98-107) L 07/29/22 07:16 Carbon Dioxide 44 mmol/L (21-32) H* 07/29/22 07:16 Anion Gap 3 (3-11) 07/29/22 07:16 BUN 76 mg/dl (6-23) H 07/29/22 07:16 Creatinine 1.52 mg/dl (0.6-1.4) H 07/29/22 07:16 Est Cr Clr Drug Dosing 48.9 ml/min 07/29/22 07:16 Est GFR ( Amer) 51.9 ml/min 07/29/22 07:16 Est GFR (Non-Af Amer) 44.8 ml/min 07/29/22 07:16 BUN/Creatinine Ratio 50.0 (10-20) H 07/29/22 07:16 Glucose 87 mg/dl (70-99(Fasting)) 07/29/22 07:16 POC Glucose 124 mg/dl (70-99) H 07/29/22 11:18 Estimat Average Glucose 131 mg/dl 07/23/22 07:11 Hemoglobin A1c 6.2 % (4.5-5.6) H 07/23/22 07:11 Lactate 1.1 mmol/L (0.4-2.0) 07/20/22 17:18 Calcium 9.7 mg/dl (8.5-10.1) 07/29/22 07:16 Phosphorus 3.3 mg/dl (2.5-4.9) D 07/23/22 07:11 Magnesium 2.0 mg/dl (1.7-2.4) 07/27/22 06:59 Total Bilirubin 0.8 mg/dl (0.2-1.0) 07/20/22 15:45 AST 26 U/L (13-39) 07/20/22 15:45 ALT 49 U/L (7-52) 07/20/22 15:45 Alkaline Phosphatase 169 U/L (34-104) H 07/20/22 15:45 Ammonia 46.0 umol/L (18-72) 07/24/22 20:25 Total Creatine Kinase 17 U/L (30-223) L 07/21/22 10:55 Troponin I High Sens 42.5 pg/ml (0-20) H 07/21/22 16:42 B-Natriuretic Peptide 173 pg/ml (0-100) H 07/20/22 15:45 Total Protein 7.7 gm/dl (6.0-8.3) 07/20/22 15:45 Albumin 3.8 gm/dl (3.4-5.0) 07/20/22 15:45 Globulin 3.9 gm/dl (2.5-4.0) 07/20/22 15:45 Albumin/Globulin Ratio 1.0 (0.9-2) 07/20/22 15:45 Lipase 35 U/L (11-82) 07/20/22 15:45 Procalcitonin 0.11 ng/ml (0-0.5) 07/20/22 15:45 Nasal Screen MRSA (PCR) Negative (Negative) 07/21/22 17:12 SARS-CoV-2 (PCR) NEGATIVE (Negative) 07/20/22 16:12 Influenza Type A (PCR) Negative (Neg) 07/20/22 16:12 Influenza Type B (PCR) Negative (Neg) 07/20/22 16:12 RSV (RT-PCR) Negative (Neg) 07/20/22 16:12 Impressions Chest X-Ray 07/27/22 22:35 XR chest 1V portable CLINICAL HISTORY: sob TECHNIQUE: Single frontal radiograph of the chest was obtained. Comparison: Comparison is made to chest radiograph 07/22/2022 FINDINGS: Pacemaker defibrillator is seen. Cardiomegaly is noted. There is prominence and cephalization of the vasculature with Estephania B lines seen. Lungs are hyperinflated. Peripheral predominant interstitial changes are seen. No evidence of pleural effusion or pneumothorax. IMPRESSION: Cardiomegaly with moderate pulmonary edema. There is chronic interstitial thickening compatible with fibrosis. ACT 112: Negative or not required by law. Electronically signed by: Riley Angeles M.D. 07/28/2022 8:23 AM
--- NOTE | 2022-07-29 15:47 | Palliative Care Progress Note ---
Date of Service July 29, 2022 Assessment & Plan (1) SOB (shortness of breath): Plan: Improved with increased O2 flow and face mask. He is breathing through his mouth. After discussion with his and sister, they are concerned about him having respiratory distress. Will order morphine prn for distress. (2) Palliative care encounter: Plan: Mrs. Jaquez and Luis's sister, Anuja, are asking about taking him home. They met with case management to discuss options for care. They are considering hospice. Guillermina asked about whether there would be help available at night, which there would not be with hospice. They are aware that they could hire caregiver support though that is difficult at this time. We talked about neighbors, family or friends who may be willing to help out when needed. They are considering that. Guillermina asked about whether Luis could come back to the hospital "if he had a catastrophic event". We discussed that Luis has continued to decline despite treatment and remains unable to tolerate bipap. He is unfortunately not likely to improve. They would prefer that he be at home for his remaining time. If he were to have problems, we discussed calling hospice to guide them through how to manage symptoms and keep him comfortable. They asked about medications and we discussed focusing on medications that contribute to his comfort at this time. They would prefer to continue current medications for now but would be agreeable to stopping some medications on discharge. Case management is working with them on setting up hospice at home. Admission and Anticipated Discharge Date Admission Date: July 20, 2022 Subjective Sleeping but arousable and answers yes and no questions. Denies pain. Does complain of feeling short of breath. Not eating much per family Review of Systems Review of Systems: ESAS Pain 0/3 Dyspnea 2/3 Nausea 0/3 Anxiety 0/3 Drowsiness 2/3 PPS 205 Physical Exam Constitutional: + ill appearing and + lethargic Respiratory: + labored breathing and + uses accessory muscles Results & Data ([facility]) Vital Signs (Past 12 Hours) Vital Signs Temp Pulse Pulse Resp BP Pulse Ox O2 Del Method 07/29/22 12:51 88 18 97 Nasal Cannula 07/29/22 11:16 97.5 F L 90 20 106/66 100 Nasal Cannula 07/29/22 07:00 83 07/29/22 07:17 97.7 F 93 H 20 109/76 100 Oxymask 07/29/22 06:56 99 H 26 H 98 Oxymask 07/29/22 04:29 98 H 107/69 O2 Flow Rate 07/29/22 12:51 2 07/29/22 11:16 2 07/29/22 07:00 07/29/22 07:17 2 07/29/22 06:56 2 07/29/22 04:29 PG Care Time/CCT Total # of Minutes Spent Total Time Spent: 38 Total Time Spent with Patient: Total time spent is greater than 50% in coordination of care (as documented) at patient's floor/unit and/or counseling patient: symptom management, hospice, family education and support, coordination of care Coding Level of Care Code 32381 Subseq Hosp Care Lvl 3 Diagnoses SOB (shortness of breath) R06.02 Palliative care encounter Z51.5
[2022-07-29] MEDS ORDERED: LEVALBUTEROL HCL 1.25 MG/3 ML NEB ONE (19:02)
[2022-07-29] MEDS: ATORVASTATIN 40 MG TAB PO SCH (21:34)
[2022-07-29] MEDS: hydrOXYzine HCl 10 MG TAB PO SCH (21:34)
[2022-07-29] MEDS: RIVAROXABAN 15 MG TAB PO SCH (21:34)
[2022-07-30] MEDS: IPRATROPIUM BROMIDE NEB SOLN 0.02% 2.5 ML VIAL INH SCH ×4 (00:09→20:23)
[2022-07-30] MEDS: LEVALBUTEROL 1.25MG/0.5ML NEB INH SCH ×4 (00:09→20:24)
[2022-07-30] MEDS: LORATADINE 10 MG TAB PO SCH (08:26)
[2022-07-30] MEDS: CYANOCOBALAMIN (B-12) 500 MCG TABLET PO SCH (08:26)
[2022-07-30] MEDS: allopurinoL 100 MG TAB PO SCH (08:26)
[2022-07-30] MEDS: DOCUSATE SODIUM 100 MG CAP PO SCH ×2 (08:27→20:35)
[2022-07-30] MEDS: predniSONE 5 MG TAB PO SCH (08:27)
[2022-07-30] MEDS: METOPROLOL SUCC 50MG EXT REL TAB PO SCH (08:27)
[2022-07-30] MEDS: PANTOprazole 40 MG TAB PO SCH (08:28)
[2022-07-30] MEDS: ESCITALOPRAM OXALATE 10 MG TAB PO SCH (08:28)
[2022-07-30] MEDS ORDERED: METOCLOPRAMIDE HCL INJ 5 MG/ML 2 ML VIAL IV PRN (08:35)
[2022-07-30] MEDS ORDERED: ONDANSETRON INJ 2 MG/ML 2 ML VIAL ONE (08:37)
[2022-07-30] MEDS: POLYETHYLENE (MIRALAX) 17 GM PACK PO PRN (08:40)
[2022-07-30] MEDS: INSULIN ASPART PER UNIT SC SCH ×4 (08:49→20:34)
[2022-07-30] MEDS: CHOLECALCIFEROL 1,000 UNITS 25 MCG TAB PO SCH (11:49)
[2022-07-30] MEDS: FOLIC ACID 1 MG TAB PO SCH (11:49)
--- NOTE | 2022-07-30 12:07 | Hospitalist Progress Note ---
Date of Service July 30, 2022 Assessment & Plan (1) Acute on chronic respiratory failure with hypoxia and hypercapnia: Plan 71-year-old male with PMH of lung cancer with mets to liver/on home oxygen/receiving chemo [received 6 cycles of chemo, not getting chemo on a regular schedule because of complications, last chemo 06/03], interstitial lung disease, CKD stage III, LAWRENCE, CHF, PAF, DVT/PE on anticoagulation, CAD, anemia [facility] with complaint of acute shortness of breath and SPO2 went down to 70%. 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 He also completed antibiotic course for possible pneumonia. He seems not using his BiPAP much in the rehab and in hospital. He is being managed for the following: Acute on chronic respiratory failure with hypoxia and hypercapnia, most likely secondary to interstitial lung disease flare Patient presented with shortness of breath and SPO2 70% [see above]. Admitting CXR with no significant change in the reticulonodular interstitial thickening/hazy bilateral airspace opacities and trace bilateral pleural effusions. Patient is noncompliant with BiPAP. Patient has recent diagnosis of sqamous cell lung cancer with metastasis to liver, follows oncology Patient was discharged on 40 mg of daily prednisone on tapering dose, was on 30 mg of prednisone at presentation. Patient was on Bactrim prophylaxis for being on a steroid. Pulmonology consulted again in the admission. Recommend BiPAP and nebulizer [id number]. Is currently getting duo nebs every 6 hours. Pulmonology also recommended tapering dose of prednisone. Patient is currently on 5 mg to be stopped tomorrow. He finished 5-day course of doxycycline as well. c/w lexapro yoel for anxiety. Pt take ativan prn at home. YELENA over CKD stage III Hyperkalemia Admitting creatinine of 1.85 with potassium of 5.4. Baseline creatinine of around 1.3-1.5 Both likely secondary to Bactrim use, Bactrim discontinued Both resolved Now has metabolic alkalosis, nephrology on board, patient given a dose of Diamox. Continues to have high HCO3 given his CO2 retention Goals of care: Discussed goals of care and CODE STATUS with his and sister at bedside on 07/25 They acknowledge that he has decompensated slowly over the course of the last hospitalization and rehab. They agree that chest compression and intubation would not be beneficial and will prolong his suffering. CODE STATUS is changed to DNR DNI. They would like to continue the ongoing medical treatment and intervention. Palliative care on board. History of PAF/DVT/PE: Patient on Xarelto and metoprolol. DVT prophylaxis: Patient on Xarelto Disposition: PT/OT, CM to assist with DC planning. Patient has remained stable in terms of his oxygenation in last 2 to 3 days. Family does not want patient to go back to rehab. They prefer having him come back home. Referral placed to [facility]. BIPAP script written. Discharged home after arrangements are made. DNR/DNI Admission and Anticipated Discharge Date Admission Date: July 20, 2022 Subjective Patient seen and examined at bedside. He is sitting up on the bed; not in any distress. He denies any chest pain, palpitation or shortness of breath. He repeatedly states that he wants to get discharged from the hospital. Telemetry shows atrial fibrillation with ventricular rate in 80s to 90s with occasional PVC and bigeminy. Review of Systems Review of Systems: All systems reviewed & are unremarkable except as noted in Subjective Physical Exam Physical Exam: GENERAL: Alert, oriented to self. HEENT: No pallor, no icterus. Pupils equal, round and reactive to light. Oral mucosa moist. NECK: No JVD, no neck masses. HEART: S1 and S2 heard. irregular rate and rhythm. No murmur, no gallop. RESPIRATORY SYSTEM: Bilateral crackles heard at lower lung prater ABDOMEN: Soft, bowel sounds present, nontender, no distention. CENTRAL NERVOUS SYSTEM: Awake, no focal neurological deficit. EXTREMITIES: No edema, no erythema seen. Results & Data Results & Data ([facility]) Vital Signs (Past 12 Hours) Vital Signs Temp Pulse Pulse Pulse Resp BP Pulse Ox 07/30/22 12:00 36.5 C 86 16 112/70 99 07/30/22 08:03 36.5 C 104 H 36 H 105/74 87 L 07/30/22 07:00 88 07/30/22 07:05 101 H 20 100 07/30/22 02:40 36.0 C L 95 H 16 111/74 992 H 07/30/22 00:10 87 18 92 O2 Del Method O2 Flow Rate 07/30/22 12:00 Oxymask 3 07/30/22 08:03 Oxymask 2 07/30/22 07:00 07/30/22 07:05 Oxymask 2 07/30/22 02:40 Room Air 07/30/22 00:10 Oxymask 2 Laboratory Results Laboratory Results WBC 9.10 K/ul (4.8-10.8) 07/29/22 07:16 RBC 2.72 M/uL (4.63-6.08) L 07/29/22 07:16 Hgb 9.0 g/dl (14.0-18.0) L 07/29/22 07:16 Hct 29.2 % (40.1-51.0) L 07/29/22 07:16 MCV 107.4 fL (80.0-100.0) H 07/29/22 07:16 MCH 33.1 pg (25.0-34.0) 07/29/22 07:16 MCHC 30.8 g/dL (32.0-36.0) L 07/29/22 07:16 RDW Std Deviation 84.4 fL (36.4-46.3) H 07/29/22 07:16 RDW Coeff of Yogi 21.8 % (11.5-14.5) H 07/29/22 07:16 Plt Count 186 K/uL (130-400) 07/29/22 07:16 MPV 10.8 fL (9.4-12.4) 07/29/22 07:16 Immature Gran % (Auto) 1.1 % 07/29/22 07:16 Neut % (Auto) 83.5 % 07/29/22 07:16 Lymph % (Auto) 4.8 % 07/29/22 07:16 [place] % (Auto) 8.8 % 07/29/22 07:16 Eos % (Auto) 1.8 % 07/29/22 07:16 Baso % (Auto) 0.0 % 07/29/22 07:16 Neut # (Auto) 7.60 K/uL (1.4-6.5) H 07/29/22 07:16 Lymph # (Auto) 0.44 K/uL (1.2-3.4) L 07/29/22 07:16 [place] # (Auto) 0.80 K/uL (0.24-0.82) 07/29/22 07:16 Eos # (Auto) 0.16 K/uL (0-0.50) 07/29/22 07:16 Baso # (Auto) 0.00 K/uL (0-0.2) 07/29/22 07:16 Immature Gran # (Auto) 0.10 K/uL (0.00-0.02) H 07/29/22 07:16 Absolute Nucleated RBC 0.02 K/uL (0-0) H 07/29/22 07:16 Nucleated RBC % (auto) 0.2 % 07/29/22 07:16 Polychromasia 1+ 07/29/22 07:16 Basophilic Stippling 1+ 07/29/22 07:16 Anisocytosis Present 07/29/22 07:16 Macrocytosis Present 07/28/22 07:48 Stomatocytes 1+ 07/21/22 05:21 ABG pH 7.42 (7.35-7.45) 07/25/22 06:53 ABG pCO2 69 mmHg (35-46) H 07/25/22 06:53 ABG pO2 79 mmHg (80-95) L 07/25/22 06:53 ABG HCO3 45 mmol/L (19-24) H 07/25/22 06:53 ABG O2 Saturation 98.5 % (90-95) H 07/25/22 06:53 ABG Base Excess 16.6 mEq/L (-9-1.8) H 07/25/22 06:53 Nehemias Test Pos (Pos) 07/25/22 06:53 VBG pH 7.32 (7.36-7.41) L 07/20/22 17:18 VBG pCO2 93 mmHg (38-50) H 07/20/22 17:18 VBG pO2 29 mmHg 07/20/22 17:18 VBG HCO3 48 mmol/L 07/20/22 17:18 VBG O2 Saturation < 60.0 % 07/20/22 17:18 VBG Base Excess 16.9 mEq/L 07/20/22 17:18 Oxygen Given 1 07/25/22 06:53 Sodium 140 mmol/L (136-145) 07/29/22 07:16 Potassium 4.0 mmol/L (3.5-5.1) 07/29/22 09:16 Chloride 93 mmol/L (98-107) L 07/29/22 07:16 Carbon Dioxide 44 mmol/L (21-32) H* 07/29/22 07:16 Anion Gap 3 (3-11) 07/29/22 07:16 BUN 76 mg/dl (6-23) H 07/29/22 07:16 Creatinine 1.52 mg/dl (0.6-1.4) H 07/29/22 07:16 Est Cr Clr Drug Dosing 48.9 ml/min 07/29/22 07:16 Est GFR ( Amer) 51.9 ml/min 07/29/22 07:16 Est GFR (Non-Af Amer) 44.8 ml/min 07/29/22 07:16 BUN/Creatinine Ratio 50.0 (10-20) H 07/29/22 07:16 Glucose 87 mg/dl (70-99(Fasting)) 07/29/22 07:16 POC Glucose 124 mg/dl (70-99) H 07/30/22 11:35 Estimat Average Glucose 131 mg/dl 07/23/22 07:11 Hemoglobin A1c 6.2 % (4.5-5.6) H 07/23/22 07:11 Lactate 1.1 mmol/L (0.4-2.0) 07/20/22 17:18 Calcium 9.7 mg/dl (8.5-10.1) 07/29/22 07:16 Phosphorus 3.3 mg/dl (2.5-4.9) D 07/23/22 07:11 Magnesium 2.0 mg/dl (1.7-2.4) 07/27/22 06:59 Total Bilirubin 0.8 mg/dl (0.2-1.0) 07/20/22 15:45 AST 26 U/L (13-39) 07/20/22 15:45 ALT 49 U/L (7-52) 07/20/22 15:45 Alkaline Phosphatase 169 U/L (34-104) H 07/20/22 15:45 Ammonia 46.0 umol/L (18-72) 07/24/22 20:25 Total Creatine Kinase 17 U/L (30-223) L 07/21/22 10:55 Troponin I High Sens 42.5 pg/ml (0-20) H 07/21/22 16:42 B-Natriuretic Peptide 173 pg/ml (0-100) H 07/20/22 15:45 Total Protein 7.7 gm/dl (6.0-8.3) 07/20/22 15:45 Albumin 3.8 gm/dl (3.4-5.0) 07/20/22 15:45 Globulin 3.9 gm/dl (2.5-4.0) 07/20/22 15:45 Albumin/Globulin Ratio 1.0 (0.9-2) 07/20/22 15:45 Lipase 35 U/L (11-82) 07/20/22 15:45 Procalcitonin 0.11 ng/ml (0-0.5) 07/20/22 15:45 Nasal Screen MRSA (PCR) Negative (Negative) 07/21/22 17:12 SARS-CoV-2 (PCR) NEGATIVE (Negative) 07/20/22 16:12 Influenza Type A (PCR) Negative (Neg) 07/20/22 16:12 Influenza Type B (PCR) Negative (Neg) 07/20/22 16:12 RSV (RT-PCR) Negative (Neg) 07/20/22 16:12 Impressions Chest X-Ray 07/27/22 22:35 XR chest 1V portable CLINICAL HISTORY: sob TECHNIQUE: Single frontal radiograph of the chest was obtained. Comparison: Comparison is made to chest radiograph 07/22/2022 FINDINGS: Pacemaker defibrillator is seen. Cardiomegaly is noted. There is prominence and cephalization of the vasculature with Estephania B lines seen. Lungs are hyperinflated. Peripheral predominant interstitial changes are seen. No evidence of pleural effusion or pneumothorax. IMPRESSION: Cardiomegaly with moderate pulmonary edema. There is chronic interstitial thickening compatible with fibrosis. ACT 112: Negative or not required by law. Electronically signed by: Riley Angeles M.D. 07/28/2022 8:23 AM
[2022-07-30] MEDS ORDERED: POLYETHYLENE (MIRALAX) 17 GM PACK PO ONE (14:13)
[2022-07-30] MEDS: hydrOXYzine HCl 10 MG TAB PO SCH (20:35)
[2022-07-30] MEDS: ATORVASTATIN 40 MG TAB PO SCH (20:35)
[2022-07-30] MEDS: RIVAROXABAN 15 MG TAB PO SCH (20:35)
[2022-07-31] MEDS: LEVALBUTEROL 1.25MG/0.5ML NEB INH SCH ×4 (01:01→19:49)
[2022-07-31] MEDS: IPRATROPIUM BROMIDE NEB SOLN 0.02% 2.5 ML VIAL INH SCH ×4 (01:01→19:49)
[2022-07-31 07:10] LABS: Eosinophils # (auto) 0.19 K/uL (0-0.50); Eosinophils % (auto) 2.2 %; Hematocrit (blood only) 29.9 % (40.1-51.0); Hemoglobin 9.1 g/dl (14.0-18.0); Immature Granulocytes % (auto) 1.2 %; Lymphocytes # (auto) 0.39 K/uL (1.2-3.4); Lymphocytes % (auto) 4.5 %; Mean Corpuscular Hemoglobin 32.7 pg (25.0-34.0); Mean Corpuscular Hgb Conc 30.4 g/dL (32.0-36.0); Mean Corpuscular Volume 107.6 fL (80.0-100.0); Mean Platelet Volume 10.5 fL (9.4-12.4); Monocytes # (auto) 0.69 K/uL (0.24-0.82); Neutrophils # (auto) 7.24 K/uL (1.4-6.5); Neutrophils % (auto) 84.1 %; Platelet Count 166 K/uL (130-400); RDW Coefficient of Variation 21.5 % (11.5-14.5); RDW Standard Deviation 83.6 fL (36.4-46.3); Red Blood Count 2.78 M/uL (4.63-6.08); White Blood Count 8.61 K/ul (4.8-10.8)
[2022-07-31 07:38] LABS: Anisocytosis Present; Basophilic Stippling 1+; Polychromasia 1+
[2022-07-31] MEDS: METOPROLOL SUCC 50MG EXT REL TAB PO SCH (07:43)
[2022-07-31] MEDS: POLYETHYLENE (MIRALAX) 17 GM PACK PO PRN (07:43)
[2022-07-31] MEDS: CYANOCOBALAMIN (B-12) 500 MCG TABLET PO SCH (07:48)
[2022-07-31] MEDS: predniSONE 5 MG TAB PO SCH (07:48)
[2022-07-31] MEDS: PANTOprazole 40 MG TAB PO SCH (07:49)
[2022-07-31] MEDS: LORATADINE 10 MG TAB PO SCH (07:49)
[2022-07-31] MEDS: DOCUSATE SODIUM 100 MG CAP PO SCH ×2 (07:49→20:08)
[2022-07-31] MEDS: ESCITALOPRAM OXALATE 10 MG TAB PO SCH (07:50)
[2022-07-31] MEDS: allopurinoL 100 MG TAB PO SCH (07:50)
[2022-07-31 08:09] LABS: Calcium 9.7 mg/dl (8.5-10.1); Creatinine Clr Calc Pharmacy 58.5 ml/min; Est GFR (African American) 64.5 ml/min; Est GFR (Non-African American) 55.7 ml/min; Potassium 4.1 mmol/L (3.5-5.1)
[2022-07-31] MEDS: INSULIN ASPART PER UNIT SC SCH ×4 (08:14→20:03)
[2022-07-31] MEDS ORDERED: MAGNESIUM HYDROXIDE SUSP 30 ML UDC PO ONE (10:53)
--- NOTE | 2022-07-31 11:01 | Hospitalist Progress Note ---
Date of Service July 31, 2022 Assessment & Plan (1) Acute on chronic respiratory failure with hypoxia and hypercapnia: Plan 71-year-old male with PMH of lung cancer with mets to liver/on home oxygen/receiving chemo [received 6 cycles of chemo, not getting chemo on a regular schedule because of complications, last chemo 06/03], interstitial lung disease, CKD stage III, LAWRENCE, CHF, PAF, DVT/PE on anticoagulation, CAD, anemia [facility] with complaint of acute shortness of breath and SPO2 went down to 70%. 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 He also completed antibiotic course for possible pneumonia. He seems not using his BiPAP much in the rehab and in hospital. He is being managed for the following: Acute on chronic respiratory failure with hypoxia and hypercapnia, most likely secondary to interstitial lung disease flare Patient presented with shortness of breath and SPO2 70% [see above]. Admitting CXR with no significant change in the reticulonodular interstitial thickening/hazy bilateral airspace opacities and trace bilateral pleural effusions. Patient is noncompliant with BiPAP. Patient has recent diagnosis of sqamous cell lung cancer with metastasis to liver, follows oncology Patient was discharged on 40 mg of daily prednisone on tapering dose, was on 30 mg of prednisone at presentation. Patient was on Bactrim prophylaxis for being on a steroid. Pulmonology consulted again in the admission. Recommend BiPAP and nebulizer [id number]. Is currently getting duo nebs every 6 hours. Pulmonology also recommended tapering dose of prednisone. Patient was placed on prednisone 10 mg for 5 days and then to 5 mg. He finished course of steroid on 07/30. He also completed 5 days of doxycycline. Chest x-ray from 07/27 reviewed; slight improvement in his pulmonary edema. Will give dose of 25 mg of is a ethacrynic acid today. YELENA over CKD stage III Hyperkalemia Admitting creatinine of 1.85 with potassium of 5.4. Baseline creatinine of around 1.3-1.5 Both likely secondary to Bactrim use, Bactrim discontinued Both resolved Now has metabolic alkalosis, nephrology on board, patient given a dose of Diamox. Continues to have high HCO3 given his CO2 retention Goals of care: Discussed goals of care and CODE STATUS with his and sister at bedside on 07/25 They acknowledge that he has decompensated slowly over the course of the last hospitalization and rehab. They agree that chest compression and intubation would not be beneficial and will prolong his suffering. CODE STATUS is changed to DNR DNI. They would like to continue the ongoing medical treatment and intervention. Palliative care on board. History of PAF/DVT/PE: Patient on Xarelto and metoprolol. DVT prophylaxis: Patient on Xarelto Disposition: PT/OT, CM to assist with DC planning. Patient has remained stable in terms of his oxygenation in last 2 to 3 days. Family does not want patient to go back to rehab. They prefer having him come back home. Referral placed to [facility]. BIPAP script written. Discharged home after arrangements are made. Will discuss with palliative regarding hospice care at home. DNR/DNI Admission and Anticipated Discharge Date Admission Date: July 20, 2022 Subjective Patient seen and examined at bedside. He is sitting up on the bed; not in any distress. He denies any shortness of breath overnight. He states that he is comfortable presently. Review of Systems Review of Systems: All systems reviewed & are unremarkable except as noted in Subjective Physical Exam Physical Exam: GENERAL: Alert, oriented to self. HEENT: No pallor, no icterus. Pupils equal, round and reactive to light. Oral mucosa moist. NECK: No JVD, no neck masses. HEART: S1 and S2 heard. irregular rate and rhythm. No murmur, no gallop. RESPIRATORY SYSTEM: Bilateral crackles heard at lower lung prater ABDOMEN: Soft, bowel sounds present, nontender, no distention. CENTRAL NERVOUS SYSTEM: Awake, no focal neurological deficit. EXTREMITIES: No edema, no erythema seen. Results & Data Results & Data ([facility]) Vital Signs (Past 12 Hours) Vital Signs Temp Pulse Pulse Pulse Resp BP Pulse Ox 07/31/22 07:22 99 H 07/31/22 07:04 36.4 C L 100 H 20 98/64 L 100 07/31/22 07:02 85 22 100 07/30/22 23:04 98 H 39 H 97 07/31/22 03:39 36.4 C L 92 H 18 114/73 100 07/31/22 01:01 83 20 100 07/30/22 23:39 36.3 C L 88 20 118/77 97 07/30/22 23:00 Pulse Ox O2 Del Method O2 Del Method O2 Flow Rate O2 Flow Rate 07/31/22 07:22 07/31/22 07:04 Oxymask 4 07/31/22 07:02 Oxymask 4 07/30/22 23:04 2 07/31/22 03:39 Oxymask 4 07/31/22 01:01 Oxymask 4 07/30/22 23:39 BiPAP 07/30/22 23:00 93 BiPAP 4 Laboratory Results Laboratory Results WBC 8.61 K/ul (4.8-10.8) 07/31/22 06:37 RBC 2.78 M/uL (4.63-6.08) L 07/31/22 06:37 Hgb 9.1 g/dl (14.0-18.0) L 07/31/22 06:37 Hct 29.9 % (40.1-51.0) L 07/31/22 06:37 MCV 107.6 fL (80.0-100.0) H 07/31/22 06:37 MCH 32.7 pg (25.0-34.0) 07/31/22 06:37 MCHC 30.4 g/dL (32.0-36.0) L 07/31/22 06:37 RDW Std Deviation 83.6 fL (36.4-46.3) H 07/31/22 06:37 RDW Coeff of Yogi 21.5 % (11.5-14.5) H 07/31/22 06:37 Plt Count 166 K/uL (130-400) 07/31/22 06:37 MPV 10.5 fL (9.4-12.4) 07/31/22 06:37 Immature Gran % (Auto) 1.2 % 07/31/22 06:37 Neut % (Auto) 84.1 % 07/31/22 06:37 Lymph % (Auto) 4.5 % 07/31/22 06:37 [place] % (Auto) 8.0 % 07/31/22 06:37 Eos % (Auto) 2.2 % 07/31/22 06:37 Baso % (Auto) 0.0 % 07/31/22 06:37 Neut # (Auto) 7.24 K/uL (1.4-6.5) H 07/31/22 06:37 Lymph # (Auto) 0.39 K/uL (1.2-3.4) L 07/31/22 06:37 [place] # (Auto) 0.69 K/uL (0.24-0.82) 07/31/22 06:37 Eos # (Auto) 0.19 K/uL (0-0.50) 07/31/22 06:37 Baso # (Auto) 0.00 K/uL (0-0.2) 07/31/22 06:37 Immature Gran # (Auto) 0.10 K/uL (0.00-0.02) H 07/31/22 06:37 Absolute Nucleated RBC 0.02 K/uL (0-0) H 07/29/22 07:16 Nucleated RBC % (auto) 0.2 % 07/29/22 07:16 Polychromasia 1+ 07/31/22 06:37 Basophilic Stippling 1+ 07/31/22 06:37 Anisocytosis Present 07/31/22 06:37 Macrocytosis Present 07/28/22 07:48 Stomatocytes 1+ 07/21/22 05:21 ABG pH 7.42 (7.35-7.45) 07/25/22 06:53 ABG pCO2 69 mmHg (35-46) H 07/25/22 06:53 ABG pO2 79 mmHg (80-95) L 07/25/22 06:53 ABG HCO3 45 mmol/L (19-24) H 07/25/22 06:53 ABG O2 Saturation 98.5 % (90-95) H 07/25/22 06:53 ABG Base Excess 16.6 mEq/L (-9-1.8) H 07/25/22 06:53 Nehemias Test Pos (Pos) 07/25/22 06:53 VBG pH 7.32 (7.36-7.41) L 07/20/22 17:18 VBG pCO2 93 mmHg (38-50) H 07/20/22 17:18 VBG pO2 29 mmHg 07/20/22 17:18 VBG HCO3 48 mmol/L 07/20/22 17:18 VBG O2 Saturation < 60.0 % 07/20/22 17:18 VBG Base Excess 16.9 mEq/L 07/20/22 17:18 Oxygen Given 1 07/25/22 06:53 Sodium 141 mmol/L (136-145) 07/31/22 06:37 Potassium 4.1 mmol/L (3.5-5.1) 07/31/22 06:37 Chloride 94 mmol/L (98-107) L 07/31/22 06:37 Carbon Dioxide 44 mmol/L (21-32) H* 07/31/22 06:37 Anion Gap 3 (3-11) 07/31/22 06:37 BUN 61 mg/dl (6-23) H 07/31/22 06:37 Creatinine 1.27 mg/dl (0.6-1.4) 07/31/22 06:37 Est Cr Clr Drug Dosing 58.5 ml/min 07/31/22 06:37 Est GFR ( Amer) 64.5 ml/min 07/31/22 06:37 Est GFR (Non-Af Amer) 55.7 ml/min 07/31/22 06:37 BUN/Creatinine Ratio 48.0 (10-20) H 07/31/22 06:37 Glucose 99 mg/dl (70-99(Fasting)) 07/31/22 06:37 POC Glucose 100 mg/dl (70-99) H 07/31/22 07:17 Estimat Average Glucose 131 mg/dl 07/23/22 07:11 Hemoglobin A1c 6.2 % (4.5-5.6) H 07/23/22 07:11 Lactate 1.1 mmol/L (0.4-2.0) 07/20/22 17:18 Calcium 9.7 mg/dl (8.5-10.1) 07/31/22 06:37 Phosphorus 3.3 mg/dl (2.5-4.9) D 07/23/22 07:11 Magnesium 2.0 mg/dl (1.7-2.4) 07/27/22 06:59 Total Bilirubin 0.8 mg/dl (0.2-1.0) 07/20/22 15:45 AST 26 U/L (13-39) 07/20/22 15:45 ALT 49 U/L (7-52) 07/20/22 15:45 Alkaline Phosphatase 169 U/L (34-104) H 07/20/22 15:45 Ammonia 46.0 umol/L (18-72) 07/24/22 20:25 Total Creatine Kinase 17 U/L (30-223) L 07/21/22 10:55 Troponin I High Sens 42.5 pg/ml (0-20) H 07/21/22 16:42 B-Natriuretic Peptide 173 pg/ml (0-100) H 07/20/22 15:45 Total Protein 7.7 gm/dl (6.0-8.3) 07/20/22 15:45 Albumin 3.8 gm/dl (3.4-5.0) 07/20/22 15:45 Globulin 3.9 gm/dl (2.5-4.0) 07/20/22 15:45 Albumin/Globulin Ratio 1.0 (0.9-2) 07/20/22 15:45 Lipase 35 U/L (11-82) 07/20/22 15:45 Procalcitonin 0.11 ng/ml (0-0.5) 07/20/22 15:45 Nasal Screen MRSA (PCR) Negative (Negative) 07/21/22 17:12 SARS-CoV-2 (PCR) NEGATIVE (Negative) 07/20/22 16:12 Influenza Type A (PCR) Negative (Neg) 07/20/22 16:12 Influenza Type B (PCR) Negative (Neg) 07/20/22 16:12 RSV (RT-PCR) Negative (Neg) 07/20/22 16:12 Impressions Chest X-Ray 07/27/22 22:35 XR chest 1V portable CLINICAL HISTORY: sob TECHNIQUE: Single frontal radiograph of the chest was obtained. Comparison: Comparison is made to chest radiograph 07/22/2022 FINDINGS: Pacemaker defibrillator is seen. Cardiomegaly is noted. There is prominence and cephalization of the vasculature with Estephania B lines seen. Lungs are hyperinflated. Peripheral predominant interstitial changes are seen. No evidence of pleural effusion or pneumothorax. IMPRESSION: Cardiomegaly with moderate pulmonary edema. There is chronic interstitial thickening compatible with fibrosis. ACT 112: Negative or not required by law. Electronically signed by: Riley Angeles M.D. 07/28/2022 8:23 AM
[2022-07-31] MEDS ORDERED: ETHACRYNIC ACID 25 MG TAB PO STA (11:02)
[2022-07-31] MEDS: CHOLECALCIFEROL 1,000 UNITS 25 MCG TAB PO SCH (12:02)
[2022-07-31] MEDS: FOLIC ACID 1 MG TAB PO SCH (12:03)
[2022-07-31] MEDS ORDERED: MAGNESIUM HYDROXIDE SUSP 30 ML UDC ONE (17:05)
[2022-07-31] MEDS: hydrOXYzine HCl 10 MG TAB PO SCH (20:08)
[2022-07-31] MEDS: RIVAROXABAN 15 MG TAB PO SCH (20:08)
[2022-07-31] MEDS: ATORVASTATIN 40 MG TAB PO SCH (20:08)
[2022-08-01] MEDS: IPRATROPIUM BROMIDE NEB SOLN 0.02% 2.5 ML VIAL INH SCH ×3 (01:41→13:00)
[2022-08-01] MEDS: LEVALBUTEROL 1.25MG/0.5ML NEB INH SCH ×3 (01:41→13:00)
[2022-08-01 06:28] LABS: Basophils # (auto) 0.02 K/uL (0-0.2); Basophils % (auto) 0.2 %; Eosinophils # (auto) 0.18 K/uL (0-0.50); Eosinophils % (auto) 2.2 %; Hematocrit (blood only) 28.8 % (40.1-51.0); Immature Granulocytes # (auto) 0.09 K/uL (0.00-0.02); Immature Granulocytes % (auto) 1.1 %; Lymphocytes # (auto) 0.41 K/uL (1.2-3.4); Mean Corpuscular Hemoglobin 33.3 pg (25.0-34.0); Mean Corpuscular Hgb Conc 31.3 g/dL (32.0-36.0); Mean Corpuscular Volume 106.7 fL (80.0-100.0); Mean Platelet Volume 10.6 fL (9.4-12.4); Monocytes # (auto) 0.72 K/uL (0.24-0.82); Monocytes % (auto) 8.8 %; Neutrophils # (auto) 6.73 K/uL (1.4-6.5); Neutrophils % (auto) 82.7 %; Platelet Count 161 K/uL (130-400); RDW Coefficient of Variation 21.3 % (11.5-14.5); RDW Standard Deviation 82.4 fL (36.4-46.3); White Blood Count 8.15 K/ul (4.8-10.8)
[2022-08-01 06:56] LABS: Anisocytosis Present; Basophilic Stippling 1+; Polychromasia 1+
[2022-08-01 07:18] LABS: Blood Urea Nitrogen 61 mg/dl (6-23); Calcium 9.7 mg/dl (8.5-10.1); Carbon Dioxide > 45 mmol/L (21-32); Chloride 92 mmol/L (98-107); Est GFR (African American) 67.3 ml/min; Glucose 103 mg/dl (70-99(Fasting)); Potassium 4.7 mmol/L (3.5-5.1); Sodium 139 mmol/L (136-145)
[2022-08-01] MEDS: INSULIN ASPART PER UNIT SC SCH ×2 (07:54→11:56)
[2022-08-01] MEDS: CYANOCOBALAMIN (B-12) 500 MCG TABLET PO SCH (09:33)
[2022-08-01] MEDS: allopurinoL 100 MG TAB PO SCH (09:33)
[2022-08-01] MEDS: DOCUSATE SODIUM 100 MG CAP PO SCH (09:34)
[2022-08-01] MEDS: LORATADINE 10 MG TAB PO SCH (09:34)
[2022-08-01] MEDS: ESCITALOPRAM OXALATE 10 MG TAB PO SCH (09:34)
[2022-08-01] MEDS: METOPROLOL SUCC 50MG EXT REL TAB PO SCH (09:34)
[2022-08-01] MEDS: PANTOprazole 40 MG TAB PO SCH (09:35)
[2022-08-01] MEDS: CHOLECALCIFEROL 1,000 UNITS 25 MCG TAB PO SCH (11:57)
[2022-08-01] MEDS: FOLIC ACID 1 MG TAB PO SCH (11:57)
--- NOTE | 2022-08-01 15:05 | Palliative Care Progress Note ---
Date of Service August 01, 2022 Assessment & Plan (1) Weakness: Plan: Progressive. Family has decided to take him home with hospice care. (2) Constipation: Plan: Discussed with hospitalist. He does have very limited po intake. He has had multiple oral laxatives and suppository per RN. Trial enema today prior to discharge (3) Palliative care encounter: Plan: Luis's and sister have decided to take him home with hospice care. Guillermina has been working with DME set up at home. Answered her questions about medications and oxygen supply, which will now be done through hospice contracted supplier. She asked again about whether he could come back to the hospital if needed. Encouraged her to call hospice prior to calling 911. metal sheet roller operator can assess Luis and make recommendations with the goal of being able to manage his comfort at home which is where they would prefer that he be. Admission and Anticipated Discharge Date Admission Date: July 20, 2022 Rome Wade is able to answer questions and make some requests. He has very little po intake. He denies feeling short of breath or having pain. Review of Systems Review of Systems: ESAS Pain 0/3 Dyspnea 0/3 Nausea 0/3 Anxiety 0/3 Drowsiness 0/3 PPS 30% Physical Exam Constitutional: no acute distress ENMT: Mouth: + dry oral mucous membranes Respiratory: + uses accessory muscles Cardiovascular: Rate/Rhythm: + irregularly irregular Gastrointestinal (Abdomen): normal BS, nontender, soft LBM 07/23 Genitourinary: cruz catheter Results & Data ([facility]) Vital Signs (Past 12 Hours) Vital Signs Temp Pulse Pulse Pulse Resp BP BP 08/01/22 13:02 100 H 28 H 08/01/22 11:48 98.4 F 100 H 18 116/71 08/01/22 11:28 98.2 F 95 H 93 H 19 114/73 95/62 L 08/01/22 09:00 08/01/22 07:53 106 H 08/01/22 07:47 98.2 F 95 H 19 95/62 L 08/01/22 07:11 99 H 22 Pulse Ox O2 Del Method O2 Flow Rate 08/01/22 13:02 96 Nasal Cannula 3 08/01/22 11:48 98 Nasal Cannula 3 08/01/22 11:28 100 08/01/22 09:00 Nasal Cannula 3 08/01/22 07:53 08/01/22 07:47 100 Nasal Cannula 3 08/01/22 07:11 100 Nasal Cannula 3 PG Care Time/CCT Total # of Minutes Spent Total Time Spent: 28 Total Time Spent with Patient: Total time spent is greater than 50% in coordination of care (as documented) at patient's floor/unit and/or counseling patient: symptom management, hospice, family education and support Coding Level of Care Code 44138 Subseq Hosp Care Lvl 2 Diagnoses Weakness R53.1 Constipation K59.00 Palliative care encounter Z51.5
--- NOTE | 2022-08-01 16:11 | Discharge Summary ---
Date of Service August 01, 2022 Admission HPI Per Admitting Provider This is a 71-year-old male with past medical history significant for lung cancer with mets to liver, on home oxygen, receiving chemo. He has received 6 cycles of chemo, but he is not getting chemo on a regular schedule because of complications. Last chemo was on 06/03. History of interstitial lung disease, chronic kidney disease stage III, iron-deficiency anemia, chronic systolic heart failure, paroxysmal atrial fibrillation, history of DVT/PE, on anticoagulation, history of CAD, history of anemia. Currently at [facility]. Comes with shortness of breath. The patient was recently in the hospital, prolonged h ospital stay from 06/21 and discharged on 07/15 to [facility]. During the hospitalization, he was treated for [id number] respiratory failure with hypoxia. Initially, his hypoxia was felt secondary to heart failure with reduced EF, EF of around 35%-40%. Suddenly, he became hypercapnic requiring BiPAP in the ICU and he again became tachypneic on 07/06, had increased fluid on chest x- ray, thought to be secondary to volume overload after Lasix was held secondary to YELENA. 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 During that hospital stay, he was status post bronchoscopy, BAL findings consistent with alveolar hemorrhage. Cytology was negative. Initially Xarelto was held, but restarted. He was placed on steroids and Bactrim for infectious prophylaxis. Workup for pulmonary hemorrhage with MIRANDA and ANCA were both negative. Pneumocystis jiroveci pneumonia PCR was negative and Fungitell was negative. He also completed a course of antibiotics for possible pneumonia. Lasix was stopped and ethacrynic acid was started by nephrology. He says he is supposed to use BiPAP as tolerated, but he refused BiPAP in the hospital, also seems to be not using much BiPAP in the rehab, he is not ambulating. He required Ativan p.r.n. for BiPAP use while in the hospital. Today, he became more short of breath in [facility], it looks like he was saturating down to 70% and he was brought in here. Currently on aerosol mask, he is saturating okay, answering appropriately. Seemed to have mild tachypnea, sisters in the room. The patient denies any headache. No neck pain, no chest pain, no abdominal pain, no back pain, no leg pains. Denies any blurred visions, no runny nose, no sore throat. Denies any cough at this time. Denies any fevers. Appetite is not that great as per the sisters, he is on soft food, not eating much, swallows okay. He was short of breath earlier, but he says he is doing okay now. Denies any nausea, vomiting. Normal bowel and bladder movements. Admission Exam Per Admitting Provider GENERAL: The patient is alert, awake, and oriented. VITAL SIGNS: Temperature 36.5, pulse 76, respiratory rate 24, blood pressure 102/72, oxygen 100% on OxyMask at 4 liters. HEENT: Pupils equal, round and reactive to light. Oral mucosa moist. NECK: No JVD. No neck masses. CARDIOVASCULAR: S1 and S2 heard. Regular rate and rhythm. No murmur, no gallop. RESPIRATORY SYSTEM: Normal AP diameter. Mild bibasilar crackles, shallow breathing, no obvious wheezing. ABDOMEN: Soft, bowel sounds present, nontender, no distention. CENTRAL NERVOUS SYSTEM: Alert and oriented. Speech is clear. No facial droop. Obeys simple commands. Insight is good. Moves extremities. EXTREMITIES: No edema, no erythema seen. Principal Diagnosis Acute on chronic respiratory failure with hypoxia and hypercapnia YELENA over CKD stage III Discharge Exam GENERAL: Alert, oriented to self. HEENT: No pallor, no icterus. Pupils equal, round and reactive to light. Oral mucosa moist. NECK: No JVD, no neck masses. HEART: S1 and S2 heard. irregular rate and rhythm. No murmur, no gallop. RESPIRATORY SYSTEM: Bilateral crackles heard at lower lung prater ABDOMEN: Soft, bowel sounds present, nontender, no distention. CENTRAL NERVOUS SYSTEM: Awake, no focal neurological deficit. EXTREMITIES: No edema, no erythema seen. Discharge Data Allergies Allergy/AdvReac Type Severity Reaction Status Date / Time diphtheria toxoid,fluid Allergy Severe CONVULSIONS--HORSE Verified 07/20/22 21:22 SERUM BASE tetanus toxoid, adsorbed Allergy Severe CONVULSIONS--HORSE Verified 07/20/22 21:22 SERUM BASE Consultations 07/20/22 20:12 ED Decision to Admit Stat 07/21/22 08:00 Consult Nephrology Routine Consult Pulmonology Routine 07/22/22 10:17 Consult Palliative Care Routine Hospital Course (1) Acute on chronic respiratory failure with hypoxia and hypercapnia: Plan 71-year-old male with PMH of lung cancer with mets to liver/on home oxygen/receiving chemo [received 6 cycles of chemo, not getting chemo on a regular schedule because of complications, last chemo 06/03], interstitial lung disease, CKD stage III, [place], CHF, PAF, DVT/PE on anticoagulation, CAD, anemia presented [facility] with complaint of acute shortness of breath and SPO2 went down to 70%. 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 He also completed antibiotic course for possible pneumonia. He seems not using his BiPAP much in the rehab and in hospital. Patient was hospitalized in telemetry unit. P ulmonology was consulted again during the hospitalization. Recommended BiPAP and nebulizer [id number]. He was also tapered off prednisone. Bactrim was discontinued. He also was noted to have YELENA on CKD. Patient was diuresed with ethacrynic acid and Diamox intermittently. His respiratory status stabilized during the hospitalization; he required BiPAP overnight and was on 2 to 3 L oxygen throughout the hospitalization. Palliative care was consulted. Patient's CODE STATUS was changed to DNR/DNI after extensive discussion with the family members. Patient repeatedly expresses desire to go back home. Patient was discharged home with hospice care. All the medication were sent to his pharmacy. Discharge instruction was provided to his and sister at bedside. Total Time Total Time Spent Total Time Spent (In Minutes): 35 Total Time Includes: Examination of the Patient, Discharge Planning, Medication Reconciliation, Communication With Other Providers and Other Discharge Plan Discharge Items Patient Disposition: Hospice - Home Reason For Visit: SOB Discharge Diagnosis: Acute on chronic respiratory failure with hypoxia and hypercapnia\ YELENA over CKD stage III Hyperkalemia Activity: Resume your previous activity Non-emergency contact: Primary Care Provider Call non-emergency contact if: you have any medication questions Follow-up/Referrals: Chandrakant Herron MD [Primary Care Provider] - (Date & Time 08/05/2022 2:00 PM Provider Chandrakant Herron MD Department [facility] ) Diet: Heart Healthy Diet Texture: Easy to Chew Addtl Attending Provider Instructions: The following are the medications you should take daily 1) Lipitor 40mg once daily. 2) Escitalopram 10mg once daily 3) Metoprolol 50mg once daily. 4) Xarelto 15mg with dinner. 5) Allopurinol 100mg once daily 6) Vitamins- Vitamin D, Folic acid and B12 7) Loratadine 10mg once daily. 8) Protonix 20mg once daily in am The following medications are to be taken as needed. 1) Lasix 40mg once a day as need if your weight increased by 3-4 pounds in few days, noticed increased swelling of the legs or increasing shortness of breath. 2) Tylenol as need for Fever/Pain 3) Albuterol inhaler as need for shortness of breath 4) Hydroxyzine as need at bedtime for sleep 5) Nitro tab as need for chest pain 6) Laxatives- Miralax, docusate as need for constipation Please use BIPAP at night. Settings- /. Please use nebulizer machine with ipratropium as needed every 6 to 8 hours as need for shortness of breath. Please change Burr catheter every 4 weeks. Next change should be in 2 weeks time. Pending Studies at Discharge: No Stand-Alone Forms: My [facility] Medications and DC Order Prescriptions: New albuterol sulfate [Ventolin HFA] 90 mcg/actuation Hfa Aerosol Inhaler 2 puff inhalation Q4 PRN (Reason: shortness of breath or wheezing) Qty: 8.5 0RF loratadine [Wal-itin] 10 mg Tablet 10 mg PO DAILY Qty: 30 0RF Xarelto 15 mg Tablet 15 mg PO HS Qty: 30 0RF atorvastatin 40 mg Tablet 40 mg PO HS Qty: 30 0RF metoprolol succinate 50 mg Tablet Extended Release 24 Hr 50 mg PO DAILY Qty: 30 0RF nitroglycerin [Nitrostat] 0.4 mg Tablet, Sublingual 0.4 mg sublingual UD PRN (Reason: chest pain) Qty: 30 0RF acetaminophen 325 mg Tablet 650 mg PO Q4H PRN (Reason: fever or pain) Qty: 30 0RF escitalopram oxalate 10 mg Tablet 10 mg PO QAM Qty: 30 0RF hydroxyzine HCl 10 mg Tablet 10 mg PO HS Qty: 30 0RF furosemide [Lasix] 40 mg tablet 40 mg PO DAILY PRN (Reason: weight gain) Qty: 30 0RF ipratropium-albuterol 0.5 mg-3 mg(2.5 mg base)/3 mL solution for nebulization 3 ml inhalation Q8H PRN (Reason: wheezing) Qty: 90 0RF Rx Instructions: ICD-10: Diagnosis: COPD Continued polyethylene glycol 3350 [Miralax] 17 gram Powder In Packet 17 g PO DAILY PRN (Reason: Constipation) Qty: 30 0RF Rx Instructions: Give @ lunch PRN ondansetron HCl 4 mg Tablet 4 mg PO Q4 PRN (Reason: Nausea) Qty: 30 0RF sennosides-docusate sodium [Senna-S] 8.6-50 mg Tablet 1 tab-cap PO DAILY PRN (Reason: Constipation) Qty: 30 0RF cyanocobalamin (vitamin B-12) 1,000 mcg Tablet 1,000 mcg PO DAILY Qty: 30 0RF allopurinol 100 mg tablet 100 mg PO QAM Qty: 30 0RF pantoprazole 20 mg tablet,delayed release (DR/EC) 20 mg PO QAM Qty: 30 0RF magnesium oxide 400 mg (241.3 mg magnesium) tablet 400 mg PO DAILY Qty: 30 0RF benzonatate 100 mg Capsule 200 mg PO TID PRN (Reason: Cough) Qty: 30 0RF folic acid 1 mg Tablet 1 mg PO DAILY Qty: 30 0RF docusate sodium 100 mg Tablet 100 mg PO BID Qty: 30 0RF cholecalciferol (vitamin D3) [Vitamin D3] 50 mcg (2,000 unit) Tablet 50 mcg PO DAILY Qty: 30 0RF Rx Instructions: give @ lunch Discontinued atorvastatin 40 mg tablet 40 mg PO HS acetaminophen [Tylenol] 325 mg Tablet 650 mg PO Q4 PRN (Reason: Pain) Rx Instructions: 1-3 SCALE prednisone 10 mg Tablet 30 mg PO .DAILY UD Rx Instructions: START 07/18/22 FOR 7 DAYS. STOP 07/25/22. ipratropium-albuterol 0.5 mg-3 mg(2.5 mg base)/3 mL Solution For Nebulization 3 ml INHALATION Q6H PRN (Reason: Shortness Of Breath) metoprolol succinate 50 mg tablet extended release 24 hr 50 mg PO DAILY prednisone 20 mg tablet 20 mg PO .DAILY UD Rx Instructions: START 07/25/22 FOR 7 DAYS, START 08/01/22 10 MG DAILY FOR 7 DAYS, ETC ethacrynic acid [Edecrin] 25 mg Tablet 25 mg PO DAILY sulfamethoxazole-trimethoprim 800-160 mg tablet 1 tab PO MOWEFR lorazepam 0.5 mg Tablet 0.5 mg PO Q8 PRN (Reason: Anxiety) albuterol sulfate [Proventil HFA] 90 mcg/actuation Hfa Aerosol Inhaler 1 inh INHALATION Q4 PRN (Reason: Wheezing) loratadine 10 mg Tablet 10 mg PO DAILY Xarelto 15 mg tablet 15 mg PO HS Discharge Orders: Discharge Order (Routine); Ordered 08/01/22 Ordered By: Bin Bruno/Other Patient Handouts: A1C Admission Data Admit Date/Time: 07/20/22 21:02 Attending Provider: Bin Carrington Admit Provider: Shon Bean Primary Care Provider: Chandrakant Herron Other Providers: Shon Bean ; Mary Pineda ; [facility] ; Susan Mckinnon ; [facility] Fax ; [facility],Referral Center ; [facility],Home Healthcare Other Interventions: Discharge Summary Assessment (RN) Last Done: 08/01/22 11:28
--- NOTE | 2022-08-12 09:19 | Coding Query ---
To promote full compliance with coding requirements relating to patient care, provider participation is requested in all cases of bi analyst uncertainty. Please assist us with the question(s) below: Coding Question(s): The diagnosis below was documented in the Palliative Consultation on 07/25/22, then subsequently fell off all further documentation. Please indicate if it is still a possible diagnosis or ruled out. Physician's Response(s): ACUTE DECOMPENSATED HEART FAILURE ( X) Diagnosed and POA ( ) Diagnosed and not POA ( ) Ruled out ( ) Other (please specify) ) MTDD
--- NOTE | 2022-08-12 09:32 | Coding Query ---
CODING QUERY To promote full compliance with coding requirements relating to patient care, provider participation is requested in all cases of unemployment examiner uncertainty. Please assist us with the question(s) below: Coding Question(s): You're help is needed to determine the most likely source(s) of the Acute Respiratory Failure. The ER documents, "suspect the patient's acute respiratory failure today is primarily driven by COPD flare in the setting of the patient's noncompliance with BiPAP", then the H&P documents, " [id number] respiratory failure with hypoxia and hypercapnia, most likely secondary to interstitial lung disease flare", however, the Pulmonary Consultation and Pulmonary Progress Notes document, "Underlying ILD, I do not think patient is in exacerbation of ILD Does have history of CHF, continue with diuretics", and the Nephrology Progress Notes as on 07/23 document, "Acute on chronic respiratory failure with hypoxia and hypercapnia: Plan: Multifactorial including interstitial lung disease, metastatic lung disease and may be a slight component of volume overload. Continue to titrate oxygen as needed. No need for diuretics at the moment", however, attending's Progress Notes document, "Acute on chronic respiratory failure with hypoxia and hypercapnia, most likely secondary to interstitial lung disease flare". Please specify below, in your clinical opinion the most likely source of the Acute Respiratory Failure: ( ) most likely Interstitial Lung disease Flare ( ) most likely due to Volume Overload from CHF ( ) most likely due to Volume Overload from Other: Please Specify ( X) most likely due to COPD flare ( ) most likely due to metastatic lung cancer ( ) most likely due to Other: Please specify ( ) unknown most likely source(s) Physician's Response(s): Thank you Socorro Maldonado Principal Diagnosis: "that condition established after study, to be chiefly responsible for occasioning the admission of the patient to the hospital for care." Co-Existing Principal Diagnosis: "when two or more diagnoses equally meet the criteria for principal diagnosis as determined by the circumstances of admission, diagnostic work up, and/or therapy provided, and the Alphabetic Index, Tabular List, or another coding guideline does not provide sequencing direction, any one of the diagnoses may be sequenced first." "When the physician has documented what appears to be a current diagnosis in the body of the record, but has not included the diagnosis in the final diagnostic statement, the physician should be asked whether the diagnosis should be added." (Source Coding Clinic 2 QTR90. p3-4) PERFECTO
== END 2022-08-01 17:14 | disposition hospice, home (50) | DRG 189 ==
LOC: ED 15:33 → SUATTDRO 21:02 → 2S 21:02
DX: I25.10 Atherosclerotic heart disease of native coronary artery without angina pectoris; Z88.7 Allergy status to serum and vaccine; I50.23 Acute on chronic systolic (congestive) heart failure; J96.22 Acute and chronic respiratory failure with hypercapnia; Z99.81 Dependence on supplemental oxygen; Z95.810 Presence of automatic (implantable) cardiac defibrillator; J44.1 Chronic obstructive pulmonary disease with (acute) exacerbation; R53.1 Weakness; R53.83 Other fatigue; Z66 Do not resuscitate; Z79.899 Other long term (current) drug therapy; Z87.891 Personal history of nicotine dependence; N18.30 Chronic kidney disease, stage 3 unspecified; Z86.718 Personal history of other venous thrombosis and embolism; T42.4X5A Adverse effect of benzodiazepines, initial encounter; K59.00 Constipation, unspecified; I48.0 Paroxysmal atrial fibrillation; G47.33 Obstructive sleep apnea (adult) (pediatric); Z82.49 Family history of ischemic heart disease and other diseases of the circulatory system; Z91.198 Patient's noncompliance with other medical treatment and regimen for other reason; C34.90 Malignant neoplasm of unspecified part of unspecified bronchus or lung; Z20.822 Contact with and (suspected) exposure to COVID-19; Z51.5 Encounter for palliative care; E87.5 Hyperkalemia; J84.9 Interstitial pulmonary disease, unspecified; Z86.711 Personal history of pulmonary embolism; E87.4 Mixed disorder of acid-base balance; N17.0 Acute kidney failure with tubular necrosis; T37.0X5A Adverse effect of sulfonamides, initial encounter; Z79.52 Long term (current) use of systemic steroids; C78.7 Secondary malignant neoplasm of liver and intrahepatic bile duct; J96.21 Acute and chronic respiratory failure with hypoxia; Z80.7 Family history of other malignant neoplasms of lymphoid, hematopoietic and related tissues; F41.9 Anxiety disorder, unspecified; D64.9 Anemia, unspecified; Z79.01 Long term (current) use of anticoagulants